=== PATIENT | female | born 1960 | race Caucasian/White ===

== ENCOUNTER → 2018-04-18 15:31 | Outpatient (CLI) | payer MEDICAID, SELFPAY ==
--- NOTE | 2018-04-18 15:38 | RAD_ITS ---
STUDY: X-RAY - LEFT TIBIA AND FIBULA REASON FOR EXAM: Female, 57 years old. Hit mid to upper anterior tibial several times. Pain. TECHNIQUE: 2 view(s) of the tibia and fibula were obtained. COMPARISON: None. FINDINGS: Normal visualized tibia. Normal visualized fibula. There is no acute fracture, dislocation or destructive osseous pathology. The knee and ankle appear grossly unremarkable. The soft tissue structures are unremarkable. RAD/Tibia & Fibula 2 Views IMPRESSION: Normal x-ray examination of the tibia and fibula. Electronically Signed: Homer Ambrose DO at 23:54 EDT Tel [phone], Service support ,
[2018-04-18 17:40] LABS: Erythrocyte Sedimentation Rate 23 mm/hr (0-30)
[2018-04-18 18:13] LABS: AST(SGOT) 14 U/L (15-37); Alanine Aminotransfer ALT/SGPT 27 U/L (13-56); Albumin, Serum 3.9 g/dL (3.2-5.0); Alkaline Phosphatase 130 U/L (45-117); Anion Gap 8 (5-15); BUN 8 mg/dL (7-18); BUN/Creat Ratio 11.1 RATIO (10-20); Calcium,Total 9.1 mg/dL (8.5-10.1); Chloride 106 mmol/L (98-107); Cholesterol 168 mg/dL (200); Creatinine, Serum 0.72 mg/dL (0.55-1.02); EST Glomerular Filtration Rate 89 mL/min (>60); Est Glom Filt Rate - Afr Amer 107 mL/min (>60); Globulin 3.9 g/dL (2.2-4.2); Glucose 86 mg/dL (74-106); High Density Lipoprotein 41 mg/dL; Potassium 3.9 mmol/L (3.5-5.1); Protein, Total 7.8 g/dL (6.4-8.2); Sodium Level 139 mmol/L (136-145); Thyroid Stim Hormone (TSH) 0.91 uIU/mL (0.358-3.74); Triglycerides 130 mg/dL; Very Low Density Lipoprotein 26 mg/dL (5-40)
== END ==
PROVIDERS: Family Provider Family Medicine; PCP Family Medicine; Referring Provider Family Medicine; Visit Provider Family Medicine
DX: M79.605 Pain in left leg (principal); M31.6 Other giant cell arteritis; I10 Essential (primary) hypertension; E78.5 Hyperlipidemia, unspecified; L68.0 Hirsutism; E66.9 Obesity, unspecified
CPT/HCPCS: 36415; 73590; 80053; 80061; 84403; 84443; 85652

== ENCOUNTER → 2018-05-24 12:05 | Outpatient (CLI) | payer MEDICAID, SELFPAY ==
--- NOTE | 2018-05-24 12:08 | MRI_ITS ---
STUDY: MRI BRAIN WITH AND WITHOUT CONTRAST REASON FOR EXAM: Female, 57 years old. Possible stroke History of cancer of the colon and vulva TECHNIQUE: Standardized multiplanar fat and water weighted pulse sequences were obtained. 10 ml of Gadavist contrast material was administered intravenously for the contrast portion of the examination. COMPARISON: None. FINDINGS: Normal size of the ventricles and extra-axial spaces for the patient's age. Multiple scattered punctate white matter lesions are seen bilaterally without mass effect or restricted diffusion. Normal bilateral basal ganglia. Normal thalami. There is no extra-axial fluid accumulation. Normal flow voids within the major intracranial circulation suggesting patency by spin echo criteria. Normal venous enhancement. There is no enhancing intra-axial or extra-axial abnormality. Normal sella turcica, pituitary gland, infundibular stalk, optic chiasm and hypothalamus. Normal tectal plate and pineal gland. Normal midbrain, alexus and medulla. Normal cerebellum. Normal basal cisterns. Normal bilateral temporal bones. Normal bilateral internal auditory canals. Postsurgical changes of the orbits. Mild mucosal thickening in the right ethmoid air cells Normal calvarium and skull base. Normal visualized soft tissue structures. Normal visualized upper cervical spine. MRI/Brain W/WO Contrast IMPRESSION: Periventricular white matter ischemic changes without evidence for acute infarct No enhancing lesions to suggest presence of metastatic disease Electronically Signed: Osmin Lindsay MD at 18:14 EST , Service support ,
== END ==
PROVIDERS: Family Provider Family Medicine; PCP Family Medicine; Referring Provider Family Medicine; Visit Provider Family Medicine
DX: R51 Headache (principal)
CPT/HCPCS: 70553; A9585

== ENCOUNTER → 2018-06-15 12:19 | Outpatient (CLI) | payer MEDICAID, SELFPAY ==
--- NOTE | 2018-06-15 12:23 | BI_ITS ---
MAMMOGRAPHY - BILATERAL SCREENING REASON FOR EXAM: Female, 57 years old. Routine annual screening examination. PERTINENT HISTORY: Non-contributory. Remote right excisional breast biopsy. TECHNIQUE: Digital bilateral breast thomas (3D mammographic acquisition) in the CC and MLO projections. 2-D mediolateral oblique (MLO) and craniocaudad (CC) views of both breasts were obtained. CAD: Full Field Digital Mammography with Computer Added Detection was performed. COMPARISON: Comparison is made with prior outside examination of April 29, 2017. FINDINGS: Breast Composition: The breasts are heterogeneously dense, which may obscure small masses. There are no dominant masses or suspicious calcifications. 3 adjacent tissue clip markers are seen in the superior slightly lateral aspect of the left breast. Stable small bilateral axillary lymph nodes. No other significant abnormalities are identified. There has been no significant change since the prior study. BI/SCREENING MAMM (CAD), BILAT IMPRESSION: Stable bilateral screening mammogram. Yearly follow-up mammogram recommended. (A) ASSESSMENT CATEGORY: BIRADS Category 2: Benign. A letter regarding these results will be sent to the patient by the facility within 30 days. Approximately 10% of breast cancers are not detected by mammography. A normal mammogram should not delay biopsy of a clinically suspicious abnormality. [id number] Electronically Signed: Klaus Bergman MD at 14:28 EST Tel [phone], Service support ,
--- OUTSIDE RECORDS SUMMARY | 2018-08-10 15:32 | XMS RPT_ITS ---
:1960 Author Organization OHIP Support Name Relationship Address Phone DALI HUYNH Unavailable [address] + [place] [address] DOMARLENJOAN JOEL Unavailable [address] + [place] [address] UE Unavailable Unavailable Unavailable DALI HUYNH Unavailable [address] + [facility] [address] DOMARLENJOAN JOEL Unavailable [address] + [place] [address] UE Unavailable Unavailable Unavailable DALI HUYNH Unavailable [address] + [facility] [address] DOMARLENJOAN JOEL Unavailable [address] + [place] [address] UE Unavailable Unavailable Unavailable HUAOJAN JOEL Unavailable [address] + [place] [address] UE Unavailable Unavailable Unavailable DOBBJOAN, JOEL Unavailable [address] + [place] [address] UE Unavailable Unavailable Unavailable DOMARLENJOAN, JOEL Unavailable [address] + [place] [address] UE Unavailable Unavailable Unavailable DOBBJOAN, JOEL Unavailable [address] + [place] [address] UE Unavailable Unavailable Unavailable DOMARLENINS, JOEL Unavailable [address] + [place] [address] UE Unavailable Unavailable Unavailable DOBBINS, JOEL Unavailable [address] + [place] [address] UE Unavailable Unavailable Unavailable HUAINS, JOEL Unavailable [address] + [place] [address] UE Unavailable Unavailable Unavailable DOBBINS, JOEL Unavailable [address] + [place] [address] UE Unavailable Unavailable Unavailable DOBBINS, JOEL Unavailable [address] + [place] [address] UE Unavailable Unavailable Unavailable DOBBINS, JOEL Unavailable [address] + [place] [address] UE Unavailable Unavailable Unavailable DOBBINS, JOEL Unavailable [address] + [place] [address] UE Unavailable Unavailable Unavailable DOBBINS, JOEL Unavailable [address] + [place] [address] UE Unavailable Unavailable Unavailable DOBBINS, JOEL Unavailable [address] + [place] [address] UE Unavailable Unavailable Unavailable DOBBINS, JOEL Unavailable [address] + [place] [address] UE Unavailable Unavailable Unavailable DOBBINS, JOEL Unavailable [address] + [place] [address] UE Unavailable Unavailable Unavailable DOBBINS, JOEL Unavailable [address] + [place] [address] UE Unavailable Unavailable Unavailable DOBBINS, JOEL Unavailable [address] + [place] [address] UE Unavailable Unavailable Unavailable DOBBINS, JOEL Unavailable [address] + [place] [address] UE Unavailable Unavailable Unavailable DOBBINS, JOEL Unavailable [address] + [place] [address] UE Unavailable Unavailable Unavailable DOBBINS, JOEL Unavailable [address] + [place] [address] UE Unavailable Unavailable Unavailable DOBBINS, JOEL Unavailable [address] + [place] [address] UE Unavailable Unavailable Unavailable Care Team Providers Name Role Phone DAYAMI DUGGAN Attending Unavailable DAYAMI DUGGAN Referring Unavailable DAYAMI DUGGAN Referring Unavailable BERNARD GUTHRIE Attending Unavailable DAYAMI DUGGAN Referring Unavailable ELDERBROCK, DAYAMI Young Attending Unavailable ELDERBROCK, DAYAMI Young Referring Unavailable OLBRYCH, LOU Attending Unavailable OLBRYCH, LOU Referring Unavailable OLBRYCH, LOU Referring Unavailable AMALFITANO, CHRISTINA L Attending Unavailable ELDERBROCK, DAYAMI D Referring Unavailable ELDERBROCK, DAYAMI D Attending Unavailable ELDERBROCK, DAYAMI D Referring Unavailable VIGNESH, IVET (HOMER) Referring Unavailable OLBRYCH, LOU Attending Unavailable VIGNESHIVET (PA) Referring Unavailable SCARCELLA, BERNARD B Referring Unavailable AMALFITANO, CHRISTINA L Referring Unavailable AMALFITANO, CHRISTINA L Referring Unavailable AMALFITANO, CHRISTINA L Referring Unavailable Dossie, Sultana Sanchez Attending Unavailable Elderbrock, Dayami Referring Unavailable Elderbrock, Dayami Primary Care Unavailable Dossie, Sultana Sanchez Attending Unavailable Elderbrock, Dayami Referring Unavailable Elderbrock, Dayami Primary Care Unavailable Dossie, Sultana Sanchez Attending Unavailable Elderbrock, Dayami Referring Unavailable Elderbrock, Dayami Primary Care Unavailable Dossie, Sultana Sanchez Attending Unavailable Elderbrock, Dayami Referring Unavailable Elderbrock, Dayami Primary Care Unavailable Dossie, Sultana Sanchez Attending Unavailable Elderbrock, Dayami Referring Unavailable Dossie, Sultana Sanchez Attending Unavailable Elderbrock, Dayami Referring Unavailable Elderbrock, Dayami Primary Care Unavailable Dossie, Sultana Sanchez Attending Unavailable Elderbrock, Dayami Referring Unavailable Dossie, Sultana Sanchez Attending Unavailable Elderbrock, Dayami Referring Unavailable Elderbrock, Dayami Primary Care Unavailable Dossie, Sultana Sanchez Attending Unavailable Dossie, Sultana Sanchez Attending Unavailable Elderbrock, Dayami Referring Unavailable Elderbrock, Dayami Primary Care Unavailable Dossie, Sultana Sanchez Attending Unavailable Elderbrock, Dayami Referring Unavailable Elderbrock, Dayami Primary Care Unavailable Dossie, Sultana Sanchez Attending Unavailable Dossie, Sultana Sanchez Attending Unavailable Dossie, Sultana ShafferCDiogo Attending Unavailable Brown, Kolby Attending Unavailable Elderbrock, Dayami Referring Unavailable Brown, Kolby Attending Unavailable Brown, Kolby Referring Unavailable Brown, Kolby Primary Care Unavailable Dossie, Sultana ShafferCDiogo Attending Unavailable Brown, Kolby Attending Unavailable Oleghe, Efewongbe Referring Unavailable Brown, Kolyb Attending Unavailable Brown, Kolby Referring Unavailable Brown, Kolby Primary Care Unavailable Sultana Shelley D.C. Attending Unavailable Coco Foy Attending Unavailable Brown, Kolby Attending Unavailable Brown, Kolby Referring Unavailable Brown, Kolby Primary Care Unavailable Sultana Shelley D.C. Attending Unavailable Brown, Kolby Referring Unavailable DannielleJaun tim Attending Unavailable Brown, Kolby Referring Unavailable PROBLEMS PROBLEMS DATE TYPE CONDITION / CODE ATTENDING STATUS SOURCE 06/26/2018 Unknown K62.5 - Hemorrhage Jaun Spicer Active [facility] anus and rectum / Community K62.5(ICD-10) Hospital Repository 06/26/2018 Unknown R10.13 - Epigastric Dannielle, Jaun Active [facility] pain / Community R10.13(ICD-10) Hospital Repository 06/26/2018 Unknown R13.10 - Dysphagia, [place], Jaun Active [facility] unspecified / Community R13.10(ICD-10) Hospital Repository 06/23/2018 Unknown M99.03 - Segmental Dossie, Sultana Active [facility] dysfunction of Hospital lumbar region / Repository M99.03(ICD-10) 06/23/2018 Unknown M99.05 - Segmental Dossie, Sultana Active [facility] dysfunction of Hospital pelvic region / Repository M99.05(ICD-10) 06/23/2018 Unknown M99.02 - Segmental Dossie, Sultana Active [facility] dysfunction of [facility] thoracic region / Repository M99.02(ICD-10) 06/23/2018 Unknown M99.01 - Segmental Dossie, Sultana 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 / Community M31.6(ICD-10) Hospital Repository 04/18/2018 Unknown I10 - Essential Brown, Kolby Active [facility] (primary) [facility] hypertension / Hospital I10(ICD-10) Repository 04/18/2018 Unknown E78.5 - Brown, Kolby Active [facility] Hyperlipidemia, Community unspecified / Hospital E78.5(ICD-10) Repository 04/18/2018 Unknown L68.0 - Hirsutism / Brown, Kolby Active [facility] L68.0(ICD-10) [facility] Repository 04/18/2018 Unknown E66.9 - Obesity, Brown, Kolby Active [facility] unspecified / [facility] E66.9(ICD-10) Hospital Repository 04/19/2018 Unknown M54.5 - Low back DossieSultana Active [facility] pain / M54.5(ICD-10) [facility] Repository 03/07/2018 Unknown M54.9 - Dorsalgia, DosSultana zacarias Active [facility] unspecified / [facility] Community M54.9(ICD-10) Hospital Repository 04/28/2015 Active Obstructive sleep NA Active [facility] apnea (adult) [facility] Other (pediatric) / [place] G47.33(ICD-10) Repository 02/08/2018 Active Chest pain, NA Active [facility] unspecified / Clinic Other R07.9(ICD-10) [place] Repository 02/08/2018 Active Shortness of breath NA Active [facility] / R06.02(ICD-10) Clinic Other [place] Repository 02/08/2018 Active Panlobular emphysema NA Active [facility] / J43.1(ICD-10) Clinic Other [place] Repository 11/21/2017 Active Chronic obstructive NA Active [facility] pulmonary disease, Clinic Main unspecified / [place] J44.9(ICD-10) Repository 10/19/2011 Active 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, [facility] Main lumbar region / [place] M51.36(ICD-10) Repository 10/31/2017 Active Dorsalgia, NA Active [facility] unspecified / Clinic Main M54.9(ICD-10) [place] Repository 10/31/2017 Active Other chronic pain / NA Active [facility] G89.29(ICD-10) Clinic Main [place] Repository 10/26/2017 Active Paresthesia of skin NA Active [facility] / R20.2(ICD-10) Clinic Other [place] Repository 09/12/2017 Active Pain in left hip / NA Active [place] M25.552(ICD-10) Clinic Other [place] Repository 09/15/2011 Active Hyperlipidemia, NA Active [facility] unspecified / Clinic Main E78.5(ICD-10) [place] Repository PROCEDURES PROCEDURES No Procedure Records FoundRESULTS RESULTS SURGERY VISIT REPORT Observed: 06/27/2018 Status: F Source: [place] 7:31 AM [facility] REPOSITORY [facility] 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 Is patient in pain?: No Allergies aloe vera Allergy (Verified 06/26/18 13:21) Other doxycycline Allergy (Verified 06/26/18 13:21) Other hydrocodone bitartrate [From Vicodin] Allergy (Verified 06/26/18 13:21) Upset Stomach oxycodone HCl [From Percocet] Allergy (Verified 06/26/18 13:21) Other propoxyphene HCl [From Darvon] Allergy (Verified 06/26/18 13:21) Vomiting Medications Rosuvastatin Calcium [Crestor] 10 mg PO QHS 05/20/14 [History Confirmed 06/26/18] lactobacillus combination no.8 3 billion cell capsule 3,000 mmu cells PO QDAY 11/08/17 [History Confirmed 06/26/18] aclidinium bromide 400 mcg/actuation breath activated powder inhaler 1 inh INHALATION BID 04/18/18 [History Confirmed 06/26/18] lorazepam 1 mg tablet 1 mg PO Q12H PRN #30 tab 04/18/18 [Rx Confirmed 06/26/18] turmeric root extract 500 mg capsule 500 mg PO BID 04/18/18 [History Confirmed 06/26/18] valacyclovir 500 mg tablet 500 mg PO DAILY #60 tab 04/18/18 [Rx Confirmed 06/26/18] esomeprazole magnesium 20 mg capsule,delayed release 20 mg PO BID #180 cap 04/27/18 [Rx Confirmed 06/26/18] ydheds-txinelrw-xujqkod 3,000-9,500-15,000 unit capsule,delayed releas 12.50753 cap PO TID #90 cap 05/04/18 [Rx Confirmed 06/26/18] cetirizine 10 mg capsule 10 mg PO DAILY #90 cap 06/01/18 [Rx Confirmed 06/26/18] glucosamine HCl 1,500 mg tablet 1,500 mg PO BID #180 tab 06/01/18 [Rx Confirmed 06/26/18] peg 3350-electrolytes 236 gram-22.74 gram-6.74 gram-5.86 gram solution 4,000 ml PO ONCE #4000 ml 06/27/18 [Rx Confirmed 06/27/18] Is last menstrual period known: No Post menopausal: Yes Patient : No PFSH Medical History Abnormal colonoscopy (Acute) Acute asthma (Acute) Arthritis (Acute) Carpal tunnel syndrome (Acute) Environmental allergies (Acute) GERD (gastroesophageal reflux disease) (Acute) High cholesterol (Acute) High triglycerides (Acute) History Valvular Surgery (Acute) History of cancer of vulva (Acute) Hx TIA/stroke w/o resid (Acute) Hx of colon cancer, stage I (Acute) IBS (irritable bowel syndrome) (Acute) Sleep apnea (Acute) Seasonal allergies (Chronic) Surgical History History of bladder surgery (Acute) History of breast surgery (Acute) History of cardiac cath (Acute) History of carpal tunnel release (Acute) History of cataract surgery (Acute) History of cornea transplant (Acute) History of esophagogastroduodenoscopy (EGD) (Acute) History of nasal septoplasty (Acute) History of partial hysterectomy (Acute) history of bladder sling (Acute) Family History Other Alcoholism Alzheimer disease Anxiety Arthritis Asthma Breast cancer Cervical cancer Colon cancer Depression Heart disease High cholesterol Lung cancer Suicidal behavior Social History Smoking Status: Current every day smoker tobacco type: cigarettes quit status: not considering quitting alcohol intake: never substance use type: does not use what type of physical activity do you participate in: none HPI HPI HPI: DEVON BARAHONA, is a 57 F who presents to the office today for evaluation of abdominal pain and bright red rectal bleeding. Patient states that about 2-3 weeks ago she had a several day history of bright red rectal bleeding with bowel movements. In addition she has been feeling very bloated and having epigastric abdominal pain. She has not had any vomiting. But she does have some dysphasia and having difficulty swallowing pills feeling like they are getting stuck in her upper throat and esophagus area. In 2016 I performed a colonoscopy on her for personal history of colonic polyps she was noted to have 2 polyps in her transverse colon these came back as tubular adenomas. She is currently on Nexium on a daily basis. she has had no new changes in her medications ROS General General: Yes fatigue and colon cancer; no weight change, appetite, breast cancer or weakness HEENT HEENT: Yes difficulty swallowing and eye surgery; no eye injury, swollen glands or hoarseness Endo Endocrine: No thyroid disease, diabetes mellitus, thyroid cancer, Hair loss, heat intolerance or cold intolerance Musc Musculoskeletal: Yes back problems and arthritis; no rheumatoid arthritis, gout or joint pain Cardio Cardiovascular: No murmur, pacemaker, heart disease, atrial fibrillation, high blood pressure, heart attack, heart stent, palpitations, shortness of breat with exertion or chest pain Psych Psychiatric: Yes anxiety; no depression or hearing voices Resp Respiratory: Yes shortness of breath, Yes sleep apnea, Yes cough, Yes COPD, Yes asthma, Yes emphysema, No wheezing Gastro Gastrointestinal: Yes abdominal pain, No nausea or vomiting, No diarrhea, No constipation, Yes blood in stool, Yes acid reflux, No hemorrhoids, No ulcers, No gallbladder problem, No black,tarry stools Ranjan Hematologic: No blood thinners, No blood disorders, No bleeding, No anemia, No blood clots Neuro Neurologic: No weakness Exam Const General: well developed, no acute distress, well hydrated Orientation: oriented to person, oriented to place, oriented to time [facility] Head: normocephalic, atraumatic Ears: external ears normal Mouth: moist mucous membranes Eyes Sclera: sclerae normal Pupils: normal by confrontation Neck Neck: no lymphadenopathy noted Neck mass: No Thyroid: symmetrical, thyroid normal Chest Chest palpation AND inspection: normal inspection of the chest Resp Effort AND Inspection: normal respiratory effort Auscultation: clear to auscultation bilaterally Percussion: percussion normal Cardio Rate: regular rate Rhythm: regular rhythm Heart Sounds: no murmurs GI Inspection: obesity Palpation: soft, no masses, no hepatosplenomegaly, tender in the epigastrum Rectal Exam: other Other: Rectal exam deferred. Extrem General: no clubbing, cyanosis or edema, normal to inspection Assessment AND Plan Problems 1. Rectal bleed K62.5 2. Epigastric pain R10.13 3. Esophageal dysphagia R13.10 Plan I have discussed the above with the patient. I have offered the patient colonoscopy as well as an esophagogastroduodenoscopy for evaluation. I have explained the risks/benefits of the procedure and described the procedure. I have discussed the risks with the patient, including but not limited to: infection, bleeding, perforation of the GI tract requiring emergency surgery, inability to complete the procedure, injury to any internal organs, complications of anesthesia, etc. - the patient understands and agrees to proceed. I have answered all the patient's questions to the patient's satisfaction and the patient has no further questions. The patient has been given instructions for the colon cleansing preparation. Orders Orders: Medications New: peg 3350-electrolytes 236-22.74-6.74 -5.86 gram until fe4,000 mL PO ONCE 4,000 mL 0RF mary effluent is clear; do not exceed a total volume of 4000 mL Plan Detail Goals Decrease pain Increase ROM Coding Level of Care Code Off vis,est,level 3 Diagnoses Rectal bleed K62.5 Epigastric pain R10.13 Esophageal dysphagia R13.10 Dysphagia type: esophageal phase 06/27/18 0731 <Electronically signed by Jaun Spicer MD> Date Jaun Spicer MD Cosigner Signature: Date (if applicable) CC: Kolby Alaniz DO CHIROPRACTIC REPORT Observed: 06/22/2018 Status: F Source: [place] 4:36 PM [facility] REPOSITORY [facility] [address] [place] [address] OFFICE VISIT Date of Service: 06/22/18 MR#: [id number] Acct: [id number] Name: DEVON BARAHONA Rep #: [id number] : 1960 Provider: Sultana North D.C. Age/Sex: 57/F Location: [facility] Status: Signed Intake Vital Signs06/22/18 Height 5 ft 3.5 in 06/22/18 Weight: 216 lb 06/22/18 Body Mass Index (BMI) 37.6 Intake Visit Reasons: back pain Chief Complaint: Neck and low back pain Accompanied by: Is patient in pain?: Yes Allergies aloe vera Allergy (Verified 05/04/18 13:47) Other doxycycline Allergy (Verified 05/04/18 13:47) Other hydrocodone bitartrate [From Vicodin] Allergy (Verified 05/04/18 13:47) Upset Stomach oxycodone HCl [From Percocet] Allergy (Verified 05/04/18 13:47) Other propoxyphene HCl [From Darvon] Allergy (Verified 05/04/18 13:47) Vomiting Medications Rosuvastatin Calcium [Crestor] 10 mg PO QHS 05/20/14 [History Confirmed 05/04/18] lactobacillus combination no.8 3 billion cell capsule 3,000 mmu cells PO QDAY 11/08/17 [History Confirmed 05/04/18] aclidinium bromide 400 mcg/actuation breath activated powder inhaler 1 inh INHALATION BID 04/18/18 [History Confirmed 05/04/18] lorazepam 1 mg tablet 1 mg PO Q12H PRN #30 tab 04/18/18 [Rx Confirmed 05/04/18] turmeric root extract 500 mg capsule 500 mg PO BID 04/18/18 [History Confirmed 05/04/18] valacyclovir 500 mg tablet 500 mg PO DAILY #60 tab 04/18/18 [Rx Confirmed 05/04/18] esomeprazole magnesium 20 mg capsule,delayed release 20 mg PO BID #180 cap 04/27/18 [Rx Confirmed 05/04/18] yjonrw-flxvthbo-gxcvslp 3,000-9,500-15,000 unit capsule,delayed releas 12.74404 cap PO TID #90 cap 05/04/18 [Rx Confirmed 05/04/18] cetirizine 10 mg capsule 10 mg PO DAILY #90 cap 06/01/18 [Rx] glucosamine HCl 1,500 mg tablet 1,500 mg PO BID #180 tab 06/01/18 [Rx] PFSH Medical History Abnormal colonoscopy (Acute) Acute asthma (Acute) Arthritis (Acute) Carpal tunnel syndrome (Acute) Environmental allergies (Acute) GERD (gastroesophageal reflux disease) (Acute) High cholesterol (Acute) High triglycerides (Acute) History Valvular Surgery (Acute) History of cancer of vulva (Acute) Hx TIA/stroke w/o resid (Acute) Hx of colon cancer, stage I (Acute) IBS (irritable bowel syndrome) (Acute) Sleep apnea (Acute) Seasonal allergies (Chronic) Surgical History History of bladder surgery (Acute) History of breast surgery (Acute) History of cardiac cath (Acute) History of carpal tunnel release (Acute) History of cataract surgery (Acute) History of cornea transplant (Acute) History of esophagogastroduodenoscopy (EGD) (Acute) History of nasal septoplasty (Acute) History of partial hysterectomy (Acute) history of bladder sling (Acute) Family History Other Alcoholism Alzheimer disease Anxiety Arthritis Asthma Breast cancer Cervical cancer Colon cancer Depression Heart disease High cholesterol Lung cancer Suicidal behavior Social History Smoking Status: Current every day smoker tobacco type: cigarettes quit status: not considering quitting alcohol intake: never substance use type: does not use what type of physical activity do you participate in: none HPI back pain: Chief Complaint: low back and hip pain Visit Number: 8 Details: DEVON BARAHONA is a 57 year old F who presents with increased low back and hip pain. She states that over the past week her hips feel as if they are popping in and out of place, causing pain and soreness. The patient also complains of low back tenderness, rating her pain a 4/10 overall. Bending, lifting, twisting and prolonged walking cause increased pain, although she denies any numbness, tingling, or radiculopathy. Location: low back and hip pain Duration: constant Aggravating or associated factors: bending, lifting, and twisting Relieving factors: chiro Pain Quality: aching, dull, cramping, sharp Exam Musc General: Yes normal posture, normal gait, joint tenderness (C6,T5, L2, L3, L5, L>R SI jt.) and decreased ROM Cervical Spine: loss of normal cervical lordosis, cervical muscular tenderness, pain with cervical ROM, cervical spasm, cervical ROM abnormal Thoracic/Lumbar Spine: thoracic and lumbar spine normal to inspection (L post rotation of pelvis), Lasegue's sign positive, pain with thoraco-lumbar ROM, paraspinal tenderness bilaterally in the lower lumbar, in the mid lumbar and in the upper thoracic, thoraco-lumbar ROM limited, thoraco-lumbar spasm bilaterally in the upper thoracic Sacroiliac joints: on the left Sacrum: tenderness Office Procedures Chiropractic Treatments Procedures Manipulation: 3-4 regions (C3,C6,T5, L3,LIL) Assessment AND Plan 1. Segmental and somatic dysfunction of lumbar region M99.03 Orders Orders: 2. Segmental and somatic dysfunction of thoracic region M99.02 Orders Orders: 3. Segmental and somatic dysfunction of pelvic region M99.05 Orders Orders: 4. Segmental and somatic dysfunction of cervical region M99.01 Orders Orders: Plan Detail Additional Comments Continue care. Goals Decrease pain Increase ROM Follow Up 2 Weeks Coding Level of Care Code No Charge Diagnoses Segmental and somatic dysfunction of lumbar region M99.03 Segmental and somatic dysfunction of thoracic region M99.02 Segmental and somatic dysfunction of pelvic region M99.05 Segmental and somatic dysfunction of cervical region M99.01 Additional Codes Procedures - Manipulation: 3-4 regions (05560) 06/22/18 4601 <Electronically signed by Sultana North D.C.> Date Sultana Magana Signature: Date (if applicable) CC: SCREENING MAMM (CAD), Observed: 06/15/2018 Status: F Source: [place] 12:23 PM [facility] REPOSITORY [facility] [address] [place] [address] SCREENING MAMM (CAD), BILAT MR#: [id number] Acct: [id number] Name: DEVON BARAHONA Rep #: [id number] : 1960 F 57 From: Klaus Bergman MD PCP: Kolby Alaniz DO Status: REG CLI Study: SCREENING MAMM (CAD), BILAT Date of Exam: 06/15/18 Exam# [id number] Ordering Dr: Kolby Alaniz DO MAMMOGRAPHY - BILATERAL SCREENING REASON FOR EXAM: Female, 57 years old. Routine annual screening examination. PERTINENT HISTORY: Non-contributory. Remote right excisional breast biopsy. TECHNIQUE: Digital bilateral breast thomas (3D mammographic acquisition) in the CC and MLO projections. 2-D mediolateral oblique (MLO) and craniocaudad (CC) views of both breasts were obtained. CAD: Full Field Digital Mammography with Computer Added Detection was performed. COMPARISON: Comparison is made with prior outside examination of April 28, 2018. FINDINGS: Breast Composition: The breasts are heterogeneously dense, which may obscure small masses. There are no dominant masses or suspicious calcifications. 3 adjacent tissue clip markers are seen in the superior slightly lateral aspect of the left breast. Stable small bilateral axillary lymph nodes. No other significant abnormalities are identified. There has been no significant change since the prior study. BI/SCREENING MAMM (CAD), BILAT IMPRESSION: Stable bilateral screening mammogram. Yearly follow-up mammogram recommended. (A) ASSESSMENT CATEGORY: BIRADS Category 2: Benign. A letter regarding these results will be sent to the patient by the facility within 30 days. Approximately 10% of breast cancers are not detected by mammography. A normal mammogram should not delay biopsy of a clinically suspicious abnormality. [id number] Electronically Signed: Klaus Bergman MD at 14:28 EST Tel [phone], Service support , CC: Kolby Alaniz DO Knockout Machine Operator: Signed BRYCE Observed: 06/14/2018 Status: COMPLETED Source: [place] 12:00 AM [facility] REPOSITORY Telephone (SRIRAMMWS) DEVON BARAHONA ([id number]) 1960 F Date Time Provider Department 06/14/18 LOU MENDOZA During your visit today, we recorded the following information about you: Luly Chani 06/14/2018 9:32 AM Signed Devon Barahona is calling Lou Mendoza MD today requesting the orders for C-Pap supplies are faxed to [place], [place] - Please fax order to [phone] These orders were orignally faxed to [facility] and patient was told by [facility] yesterday she is not in their area and unable to fill the request. She was directed to [facility] in [place]. The [place] location advised patient it would take up to two weeks to start the process on getting her supplies. [facility] [place] the [place] and fill order once they are received. Please call patient when completed. Patient has been without her Cpap Otilia Branch LPN 06/14/2018 1:44 PM Signed Faxed to [facility] Patient notified. Otilia Flemingtima RIOS Lois Worthington Noah Psr 06/19/2018 1:47 PM Signed Patient called today stating Latonya needed her most recent PSG. This PSS faxed over the report to [phone] from her 04/21/15 study which patient confirmed was the most up to date. Allergies As of Date: 06/14/2018 Noted Allergy Reaction ALOE VERA 03/26/2010 2 - Rash Comments: Causes bustillos/redness/blistering when applied topically. DARVON (PROPOXYPHENE HCL) 03/17/2010 8 - GI Upset 11 - Vomiting VICODIN (HYDROCODONE-ACETAMINOPHE*03/17/2010 8 - GI Upset 11 - Vomiting DOXYCYCLINE 09/08/2012 14 - Other: See Comments Comments: Vaginal yeast infection. PERCOCET (OXYCODONE-ACETAMINOPHEN)03/17/2010 1 - Mental Status Change Comments: Visual hallucinations PENICILLIN 06/01/2018 14 - Other: See Comments Comments: Yeast vaginitis. Date Reviewed: 06/01/2018 Reviewed by: Lou Mendoza - Fully Assessed Reason for Visit: fax order request [Other] Prescriptions as of 06/14/2018 Sig: TIOTROPIUM BROMIDE 1.25 MCG/A* Inhale 2 Puffs as instructed * IGIRJS-RJTCHDNY-BRGNDIU 3,000* Take 1 capsule by mouth three* CETIRIZINE 10 MG TABLET Take 1 tablet by mouth once d* SALMETEROL 50 MCG/DOSE BLISTE* Inhale 1 Puff as instructed t* COMPOUNDED PRESCRIPTION Respironics Opti-Life nasal p* COMPOUNDED PRESCRIPTION SoClean PAP cleaning unit. LORAZEPAM 1 MG TABLET Take 1 tablet by mouth every * ROSUVASTATIN 10 MG TABLET Take 1 tablet by mouth daily * COMPOUNDED PRESCRIPTION Assess CPAP unit settings, ma* COMPOUNDED PRESCRIPTION Water pill with potassium, ta* LACTOBACILLUS COMBINATION NO.* Take 1 capsule by mouth once * TURMERIC ROOT EXTRACT 500 MG * Take 1 capsule by mouth once * CHOLECALCIFEROL (VITAMIN D3) * Take 1 capsule by mouth once * CPAP daily at bedtime. Problem List As Of Date 06/14/2018 Noted Resolved Arthritis [M19.90] INVALID FOR* Back pain [M54.9] INVALID FOR*03/23/2016 More... Bladder instability [N32.89] INVALID FOR*03/20/2014 Asthma [J45.909] INVALID FOR*06/06/2012 Acute gastritis without mention of hemorrhage [*INVALID FOR*05/04/2012 ALIYA (obstructive sleep apnea) [G47.33] INVALID FOR* More... COPD (chronic obstructive pulmonary disease) [J*INVALID FOR* Other and unspecified hyperlipidemia [E78.5] INVALID FOR* Lumbar strain [S39.012A] INVALID FOR*05/04/2012 Lumbar spondylosis [M47.816] INVALID FOR*05/04/2012 Lumbar radiculopathy [M54.16] INVALID FOR*05/04/2012 Lumbar disc displacement without myelopathy [M5*INVALID FOR*05/04/2012 Low back pain [M54.5] INVALID FOR*03/23/2016 DDD (degenerative disc disease), lumbar [M51.36]INVALID FOR* Globus syndrome [F45.8] INVALID FOR*03/20/2014 Rhinitis [J31.0] INVALID FOR*05/04/2012 Laryngitis [J04.0] INVALID FOR*05/04/2012 Anxiety [F41.9] INVALID FOR* Scars [L90.5] INVALID FOR*05/04/2012 Hirsutism [L68.0] INVALID FOR*05/04/2012 Pulmonary emphysema (HCC) [J43.9] INVALID FOR* Back pain, chronic [M54.9, G89.29] INVALID FOR* Scalp lesion [L98.9] INVALID FOR*03/20/2014 Vulvar itching [L29.2] INVALID FOR*03/20/2014 Lens replaced by other means [Z96.1] INVALID FOR*03/23/2016 Insomnia [G47.00] INVALID FOR* Irritable bowel [K58.9] INVALID FOR* Mucopurulent chronic bronchitis (HCC) [J41.1] INVALID FOR* Gastroesophageal reflux disease without esophag*INVALID FOR* Cornea replaced by transplant [Z94.7] INVALID FOR*03/23/2016 Chronic pain of right knee [M25.561, G89.29] INVALID FOR* After-cataract obscuring vision, left [H26.492] INVALID FOR* Pseudophakia of both eyes [Z96.1] INVALID FOR* History of Descemet membrane endothelial kerato*INVALID FOR* More... Encounter Status:Closed by OTILIA BRANCH LPN on 06/14/18 MIGDALIA Observed: 06/01/2018 Status: COMPLETED Source: [place] 1:00 PM [facility] REPOSITORY Office Visit (PULMWS) DEVON BARAHONA ([id number]) 1960 F Date Time Provider Department 06/01/18 1:00 PM LOU MENDOZA During your visit today, we recorded the following information about you: Pulse Respiration Blood pressure Weight 90/minute 16/minute 102/62 99.3 kg Otilia Branch LPN 06/01/2018 12:52 PM Attested Attestation signed by Lou Mendoza at 06/01/2018 1:00 PM Reviewed with patient, confirmed as documented by Otilia Branch LPN. TO ROS: General: Generally feels short of breath with exertion/rushing. Appetite good. Eyes, Ears, nose, throat: notes post nasal drip. notes rhinorrhea. denies purulent nasal discharge. denies epistaxis. notes hoarseness. Vision stable. Cardiac: denies angina, denies edema, denies orthopnea. GI: notes heartburn. notes dysphagia. denies diarrhea. Uro/MACHINERY DISMANTLER: denies dysuria. denies hesitancy. denies nocturia. Menses: Post menopausal Musculoskeletal: denies pain. Neuro: notes headache- temporal, denies focal weakness. denies tremor. Skin: denies rash. Otherwise negative. Lou Mendoza MD 06/02/2018 1:31 PM Signed [facility] [place], 06/01/2018: ? INTERVAL HISTORY: Ms. Barahona is here for follow up of COPD and obstructive sleep apnea. Since the 11/2017 visit, the patient has not sought MD, ED or hospital care for exacerbation. Consistent with BID Tudorza. Daily cough; clear sputum attributes to Alot of sinus drainage, coughs in paroxysms to the point of gagging/choking. No purulent secretions. No hemoptysis, wheezing, chest tightness. Exertional dyspnea, stable; color television console monitor, including making bed, vacuuming, bending over all associated with shortness of breath, but still able to complete these activities. Not short of breath at rest. Still consistently compliant with CPAP. ? PMH changes:?Updated with patient today. No change. FAMH changes: Updated with patient today. No change. SOCH changes:?Still smoking 15 cigarettes daily through a filter. ? ROS: Reviewed with patient, confirmed as documented by Otilia Branch LPN. TO ? ? Immunization History Administered Date(s) Administered DTP 04/21/2014 Influenza Seasonal Inj Age 3+ 03/24/2017 Influenza Vaccine, Split-Non Spec 05/26/2011 Pneumococcal-13 Vac Conjugate 09/26/2014 Pneumovax 08/13/2010 Allergies were reviewed and updated, and medications were reconciled with the patient. ? PHYSICAL EXAMINATION: BP 102/62 Pulse 90 Resp 16 Wt 219 lb (99.3kg) SpO2 91% Gen: No acute distress. Cooperative with examination. Obese. ENT: Sclerae clear. EOMI. Nares clear. Oral hygeine good. Good dentition. Pharynx clear. No halitosis. Resp: No stridor, accessory respiratory muscle use, supra- sternal or intercostal retractions. A-P diameter normal. No wheezes crackles, rubs. CV: Regular rythm. Heart tones normal. No carotid bruit. Radial pulses normal. Abd: No distended. MSK: No kyphoscoliosis. No joint deformities. Ext: Warm and well perfused. No clubbing. No cyanosis. No edema. Skin: Color normal. Texture normal. No rash, eczema, urticaria, ecchymoses. Neuro: Mental status normal. Affect normal. Muscle tone normal. No tremor. ?? DATA REVIEW: PFT?11/21/17?04/22/16?03/13/15?- ? FVC?3.31L, 102%?3.30L, 100%?3.55L, 107%? FEV1?1.93L, 77%?2.19L, 85%?2.09L, 81%? FEV1%?0.58? 0.66?0.59?- ? IMPRESSION/RECOMMEND: 1. COPD with chronic bronchitis; moderate with decrease in FEV1 today. Reviewed with patient today. States she was previously on Advair and Symbicort without any improvement in symptoms. Does not want to start a new medication at this time. Wants to stop quitting. - Substitute Anoro 1 inhalation once daily for Tudorza. - If Anoro not covered, continue Tudorza twice daily. - Anoro and Tudorza NOT on Formulary. - Spiriva Respimat 2 inhalations once daily e-scripted to Pharmacy 06/02/2018. - Add Serevent 1 inhalation twice daily. - Follow up in 4-6 weeks with re-assessment of symptoms and lung function. ? 2. Tobacco use disorder, continuous. - Smoking cessation is critical to preserve lung function. - Continue efforts to reduce use. ? 3. ALIYA. - Continue CPAP nightly and with any sleep. - Rx for replacement CPAP mask and supplies, SoClean. - Respironics Opti-Life nasal pillows/cradle cushion system. 4. Post nasal drip. - Continue Zyrtec. - Add over the counter Nasacort, Nasonex, or Flonase per package directions. Nasal topical steroid. ? I addressed the questions of the patient, and she expressed understanding and acceptance of my answers ? Lou Mendoza MD, [facility] [address] [address] Lou Mendoza MD 06/02/2018 1:30 PM Addendum MPRESSION/RECOMMEND: 1. COPD with chronic bronchitis; moderate with decrease in FEV1 today. - Substitute Anoro 1 inhalation once daily for Tudorza. - If Anoro not covered, continue Tudorza twice daily. - Anoro and Tudorza NOT on Formulary. - Spiriva Respimat 2 inhalations once daily e-scripted to Pharmacy 06/02/2018. - Add Serevent 1 inhalation twice daily. - Follow up in 4-6 weeks with re-assessment of symptoms and lung function. ? 2. Tobacco use disorder, continuous. - Smoking cessation is critical to preserve lung function. - Continue efforts to reduce use. ? 3. ALIYA. - Continue CPAP nightly and with any sleep. - Rx for replacement CPAP mask and supplies, SoClean. - Respironics Opti-Life nasal pillows/cradle cushion system. Lou Mendoza MD, [facility] [address] [place] [id number] P: [phone] F: [phone] [email or web address] ? Referring Provider: IVET MEDELLIN [[id number]] Allergies As of Date: 06/01/2018 Noted Allergy Reaction ALOE VERA 03/26/2010 2 - Rash Comments: Causes bustillos/redness/blistering when applied topically. DARVON (PROPOXYPHENE HCL) 03/17/2010 8 - GI Upset 11 - Vomiting VICODIN (HYDROCODONE-ACETAMINOPHE*03/17/2010 8 - GI Upset 11 - Vomiting DOXYCYCLINE 09/08/2012 14 - Other: See Comments Comments: Vaginal yeast infection. PERCOCET (OXYCODONE-ACETAMINOPHEN)03/17/2010 1 - Mental Status Change Comments: Visual hallucinations PENICILLIN 06/01/2018 14 - Other: See Comments Comments: Yeast vaginitis. Date Reviewed: 06/01/2018 Reviewed by: Lou Mendoza - Fully Assessed Reason for Visit: Recheck [92] Cmt: COPD, ALIYA. Primary Visit Diagnosis:Mucopurulent chronic bronchitis (HCC) [J41.1] Other Visit Diagnoses:Centrilobular emphysema (HCC) [J43.2] ALIYA (obstructive sleep apnea) [G47.33] Post-nasal drip [R09.82] Order(s):plzumf-bcxqprqv-gplovwd (CREON 3) 3,000-9,500- 15,000 unitTake 1 capsule by mouth three times daily with meals.Disp: Rfl: cetirizine (ZYRTEC) 10 mg tabletTake 1 tablet by mouth once daily.Disp: Rfl: salmeterol (SEREVENT DISKUS) 50 mcg/dose diskus inhalerInhale 1 Puff as instructed twice daily. USE ONE(1) INHALATION TWICE DAILY.Disp: 1 InhalerRfl: 3 COMPOUNDED PRESCRIPTIONRespironics Opti-Life nasal pillows/cradle cushion system, tubing and supplies. Replace every 6 months.Disp: 1 EachRfl: 1 COMPOUNDED PRESCRIPTIONSoClean PAP cleaning unit.Disp: 1 EachRfl: 0 SPIROMETRY BASELINE ONLY [[id number]] Order #: [id number] FUTURE tiotropium bromide (SPIRIVA RESPIMAT) 1.25 mcg/actuation mistInhale 2 Puffs as instructed once daily.Disp: 1 InhalerRfl: 5 Prescriptions as of 06/01/2018 Sig: LORAZEPAM 1 MG TABLET Take 1 tablet by mouth every * ROSUVASTATIN 10 MG TABLET Take 1 tablet by mouth daily * COMPOUNDED PRESCRIPTION Assess CPAP unit settings, ma* COMPOUNDED PRESCRIPTION Water pill with potassium, ta* LACTOBACILLUS COMBINATION NO.* Take 1 capsule by mouth once * TURMERIC ROOT EXTRACT 500 MG * Take 1 capsule by mouth once * CHOLECALCIFEROL (VITAMIN D3) * Take 1 capsule by mouth once * CPAP daily at bedtime. TIOTROPIUM BROMIDE 1.25 MCG/A* Inhale 2 Puffs as instructed * HUQJDB-XGQDZHNY-SIVQNPK 3,000* Take 1 capsule by mouth three* CETIRIZINE 10 MG TABLET Take 1 tablet by mouth once d* SALMETEROL 50 MCG/DOSE BLISTE* Inhale 1 Puff as instructed t* COMPOUNDED PRESCRIPTION Respironics Opti-Life nasal p* COMPOUNDED PRESCRIPTION SoClean PAP cleaning unit. Problem List As Of Date 06/01/2018 Noted Resolved Arthritis [M19.90] INVALID FOR* Back pain [M54.9] INVALID FOR*03/23/2016 More... Bladder instability [N32.89] INVALID FOR*03/20/2014 Asthma [J45.909] INVALID FOR*06/06/2012 Acute gastritis without mention of hemorrhage [*INVALID FOR*05/04/2012 ALIYA (obstructive sleep apnea) [G47.33] INVALID FOR* More... COPD (chronic obstructive pulmonary disease) [J*INVALID FOR* Other and unspecified hyperlipidemia [E78.5] INVALID FOR* Lumbar strain [S39.012A] INVALID FOR*05/04/2012 Lumbar spondylosis [M47.816] INVALID FOR*05/04/2012 Lumbar radiculopathy [M54.16] INVALID FOR*05/04/2012 Lumbar disc displacement without myelopathy [M5*INVALID FOR*05/04/2012 Low back pain [M54.5] INVALID FOR*03/23/2016 DDD (degenerative disc disease), lumbar [M51.36]INVALID FOR* Globus syndrome [F45.8] INVALID FOR*03/20/2014 Rhinitis [J31.0] INVALID FOR*05/04/2012 Laryngitis [J04.0] INVALID FOR*05/04/2012 Anxiety [F41.9] INVALID FOR* Scars [L90.5] INVALID FOR*05/04/2012 Hirsutism [L68.0] INVALID FOR*05/04/2012 Pulmonary emphysema (HCC) [J43.9] INVALID FOR* Back pain, chronic [M54.9, G89.29] INVALID FOR* Scalp lesion [L98.9] INVALID FOR*03/20/2014 Vulvar itching [L29.2] INVALID FOR*03/20/2014 Lens replaced by other means [Z96.1] INVALID FOR*03/23/2016 Insomnia [G47.00] INVALID FOR* Irritable bowel [K58.9] INVALID FOR* Mucopurulent chronic bronchitis (HCC) [J41.1] INVALID FOR* Gastroesophageal reflux disease without esophag*INVALID FOR* Cornea replaced by transplant [Z94.7] INVALID FOR*03/23/2016 Chronic pain of right knee [M25.561, G89.29] INVALID FOR* After-cataract obscuring vision, left [H26.492] INVALID FOR* Pseudophakia of both eyes [Z96.1] INVALID FOR* History of Descemet membrane endothelial kerato*INVALID FOR* More... Notes for Staff Discussed this visit Other instructions from your clinician: MPRESSION/RECOMMEND: 1. COPD with chronic bronchitis; moderate with decrease in FEV1 today. - Substitute Anoro 1 inhalation once daily for Tudorza. - If Anoro not covered, continue Tudorza twice daily. - Anoro and Tudorza NOT on Formulary. - Spiriva Respimat 2 inhalations once daily e-scripted to Pharmacy 06/02/2018. - Add Serevent 1 inhalation twice daily. - Follow up in 4-6 weeks with re-assessment of symptoms and lung function. ? 2. Tobacco use disorder, continuous. - Smoking cessation is critical to preserve lung function. - Continue efforts to reduce use. ? 3. ALIYA. - Continue CPAP nightly and with any sleep. - Rx for replacement CPAP mask and supplies, SoClean. - Respironics Opti-Life nasal pillows/cradle cushion system. Lou Mendoza MD, [facility] [place] [facility] [address] [address] P: [phone] F: [phone] [email or web address] ? Visit Notes: >> Otilia Branch NET PROGRAMMER Shantelle Jun 01, 2018 12:39 PM Status: Attested ROS: General: Generally feels short of breath with exertion/rushing. Appetite good. Eyes, Ears, nose, throat: notes post nasal drip. notes rhinorrhea. denies purulent nasal discharge. denies epistaxis. notes hoarseness. Vision stable. Cardiac: denies angina, denies edema, denies orthopnea. GI: notes heartburn. notes dysphagia. denies diarrhea. Uro/MACHINERY DISMANTLER: denies dysuria. denies hesitancy. denies nocturia. Menses: Post menopausal Musculoskeletal: denies pain. Neuro: notes headache- temporal, denies focal weakness. denies tremor. Skin: denies rash. Otherwise negative. Prescriptions ordered this encounter Disp Refills Start End SFCAJL-SQIPPHAT-IUFXCZT 3,000-9,500-* 06/01/2018 Class: Med Update Route: ORAL Sig: Take 1 capsule by mouth three times daily with meals. CETIRIZINE 10 MG TABLET 06/01/2018 Class: Med Update Route: ORAL Sig: Take 1 tablet by mouth once daily. UMECLIDINIUM 62.5 MCG-VILANTEROL 25 * 1 In* 3 06/01/2018 06/02/2018 Class: Print RX Route: INHALATION Sig: Inhale 1 Inhalation as instructed once daily. Disc: Not on Formulary SALMETEROL 50 MCG/DOSE BLISTER POWDE* 1 In* 3 06/01/2018 Class: Print RX Route: INHALATION Sig: Inhale 1 Puff as instructed twice daily. USE ONE(1) INHALATION TWICE DAILY. COMPOUNDED PRESCRIPTION 1 Ea* 1 06/01/2018 Class: Print RX Sig: Respironics Opti-Life nasal pillows/cradle cushion system, tubing and supplies. Replace every 6 months. COMPOUNDED PRESCRIPTION 1 Ea* 0 06/01/2018 Class: Print RX Sig: SoClean PAP cleaning unit. ACLIDINIUM BROMIDE 400 MCG/ACTUATION* 1 Ea* 11 06/01/2018 06/02/2018 Class: Print RX Route: INHALATION Sig: Inhale 1 Puff as instructed twice daily. Disc: Not on Formulary TIOTROPIUM BROMIDE 1.25 MCG/ACTUATIO* 1 In* 5 06/02/2018 Route: INHALATION Sig: Inhale 2 Puffs as instructed once daily. Medications Discontinued During This Encounter zolpidem (AMBIEN) 10 mg tab 90 t* 0 02/01/2018 06/01/2018 Class: Print RX Route: ORAL Sig: Take 1 tablet by mouth at bedtime as needed (insomnia) for up to 90 days. Hold to fill on 10/23/16 or after Disc: Course of therapy completed ZOVIRAX 5 % crea 5 g 5 04/26/2017 06/01/2018 Sig: APPLY TO THE AFFECTED AREA(S) FIVE TIMES DAILY. use for FOUR days with viral sores Disc: Course of therapy completed aclidinium bromide (TUDORZA PRESSAIR* 3 Ea* 3 04/22/2016 06/01/2018 Class: Print RX Route: INHALATION Sig: Inhale 1 Inhalation as instructed twice daily. Disc: Reason for discontinue is not on file. umeclidinium-vilanterol (ANORO ELLIP* 1 In* 3 06/01/2018 06/02/2018 Class: Print RX Route: INHALATION Sig: Inhale 1 Inhalation as instructed once daily. Disc: Not on Formulary aclidinium bromide (TUDORZA PRESSAIR* 1 Ea* 11 06/01/2018 06/02/2018 Class: Print RX Route: INHALATION Sig: Inhale 1 Puff as instructed twice daily. Disc: Not on Formulary Follow Up: Discussed this visit Disposition: Return in about 6 weeks (around 07/13/2018). Follow-up and Disposition History Recorded Encounter Status:Closed by LOU MENDOZA MD on 06/02/18 PROGRESS Observed: 06/01/2018 Status: COMPLETED Source: [place] 12:43 PM [facility] REPOSITORY HNO ID: [id number] Author: Lou Mendoza Service: (none) Author Type: Physician Type: Progress Notes Filed: 06/02/2018 1:31 PM Note Text: [facility] [place], 06/01/2018: ? INTERVAL HISTORY: Ms. Barahona is here for follow up of COPD and obstructive sleep apnea. Since the 11/2017 visit, the patient has not sought MD, ED or hospital care for exacerbation. Consistent with BID Tudorza. Daily cough; clear sputum attributes to Alot of sinus drainage, coughs in paroxysms to the point of gagging/choking. No purulent secretions. No hemoptysis, wheezing, chest tightness. Exertional dyspnea, stable; color television console monitor, including making bed, vacuuming, bending over all associated with shortness of breath, but still able to complete these activities. Not short of breath at rest. Still consistently compliant with CPAP. ? PMH changes:?Updated with patient today. No change. FAMH changes: Updated with patient today. No change. SOCH changes:?Still smoking 15 cigarettes daily through a filter. ? ROS: Reviewed with patient, confirmed as documented by Otilia Branch LPN. TO ? ? Immunization History Administered Date(s) Administered DTP 04/21/2014 Influenza Seasonal Inj Age 3+ 03/24/2017 Influenza Vaccine, Split-Non Spec 05/26/2011 Pneumococcal-13 Vac Conjugate 09/26/2014 Pneumovax 08/13/2010 Allergies were reviewed and updated, and medications were reconciled with the patient. ? PHYSICAL EXAMINATION: BP 102/62 Pulse 90 Resp 16 Wt 219 lb (99.3kg) SpO2 91% Gen: No acute distress. Cooperative with examination. Obese. ENT: Sclerae clear. EOMI. Nares clear. Oral hygeine good. Good dentition. Pharynx clear. No halitosis. Resp: No stridor, accessory respiratory muscle use, supra- sternal or intercostal retractions. A-P diameter normal. No wheezes crackles, rubs. CV: Regular rythm. Heart tones normal. No carotid bruit. Radial pulses normal. Abd: No distended. MSK: No kyphoscoliosis. No joint deformities. Ext: Warm and well perfused. No clubbing. No cyanosis. No edema. Skin: Color normal. Texture normal. No rash, eczema, urticaria, ecchymoses. Neuro: Mental status normal. Affect normal. Muscle tone normal. No tremor. ?? DATA REVIEW: PFT?11/21/17?04/22/16?03/13/15? FVC?3.31L, 102%?3.30L, 100%?3.55L, 107%? FEV1?1.93L, 77%?2.19L, 85%?2.09L, 81%? FEV1%?0.58? 0.66?0.59? IMPRESSION/RECOMMEND: 1. COPD with chronic bronchitis; moderate with decrease in FEV1 today. Reviewed with patient today. States she was previously on Advair and Symbicort without any improvement in symptoms. Does not want to start a new medication at this time. Wants to stop quitting. - Substitute Anoro 1 inhalation once daily for Tudorza. - If Anoro not covered, continue Tudorza twice daily. - Anoro and Tudorza NOT on Formulary. - Spiriva Respimat 2 inhalations once daily e-scripted to Pharmacy 06/02/2018. - Add Serevent 1 inhalation twice daily. - Follow up in 4-6 weeks with re-assessment of symptoms and lung function. ? 2. Tobacco use disorder, continuous. - Smoking cessation is critical to preserve lung function. - Continue efforts to reduce use. ? 3. ALIYA. - Continue CPAP nightly and with any sleep. - Rx for replacement CPAP mask and supplies, SoClean. - Respironics Opti-Life nasal pillows/cradle cushion system. 4. Post nasal drip. - Continue Zyrtec. - Add over the counter Nasacort, Nasonex, or Flonase per package directions. Nasal topical steroid. ? I addressed the questions of the patient, and she expressed understanding and acceptance of my answers ? Lou Mendoza MD, [facility] [place] [facility] [place] [address] [place] [address] BRAIN W/WO CONTRAST Observed: 05/24/2018 Status: F Source: [place] 12:08 PM [facility] REPOSITORY [facility] Imaging Services [address] [place] [address] Brain W/WO Contrast MR#: [id number] Acct: [id number] Name: DEVON BARAHONA Rep #: [id number] : 1960 F 57 From: Osmin Lindsay MD PCP: Kolby Alaniz DO Status: REG CLI Study: Brain W/WO Contrast Date of Exam: 05/24/18 Exam# [id number] Ordering Dr: Kolby Alaniz DO STUDY: MRI BRAIN WITH AND WITHOUT CONTRAST REASON FOR EXAM: Female, 57 years old. Possible stroke History of cancer of the colon and vulva TECHNIQUE: Standardized multiplanar fat and water weighted pulse sequences were obtained. 10 ml of Gadavist contrast material was administered intravenously for the contrast portion of the examination. COMPARISON: None. FINDINGS: Normal size of the ventricles and extra-axial spaces for the patient's age. Multiple scattered punctate white matter lesions are seen bilaterally without mass effect or restricted diffusion. Normal bilateral basal ganglia. Normal thalami. There is no extra-axial fluid accumulation. Normal flow voids within the major intracranial circulation suggesting patency by spin echo criteria. Normal venous enhancement. There is no enhancing intra-axial or extra-axial abnormality. Normal sella turcica, pituitary gland, infundibular stalk, optic chiasm and hypothalamus. Normal tectal plate and pineal gland. Normal midbrain, alexus and medulla. Normal cerebellum. Normal basal cisterns. Normal bilateral temporal bones. Normal bilateral internal auditory canals. Postsurgical changes of the orbits. Mild mucosal thickening in the right ethmoid air cells Normal calvarium and skull base. Normal visualized soft tissue structures. Normal visualized upper cervical spine. MRI/Brain W/WO Contrast IMPRESSION: Periventricular white matter ischemic changes without evidence for acute infarct No enhancing lesions to suggest presence of metastatic disease Electronically Signed: Osmin Lindsay MD at 18:14 EST , Service support , CC: Kolby Alaniz DO Knockout Machine Operator: Signed CHIROPRACTIC REPORT Observed: 05/22/2018 Status: F Source: [place] 2:16 PM [facility] REPOSITORY [facility] [address] [place] [address] OFFICE VISIT Date of Service: 05/22/18 MR#: [id number] Acct: [id number] Name: DEVON BARAHONA Rep #: [id number] : 1960 Provider: [facility] Age/Sex: 57/F Location: [facility] Status: Signed Intake Vital Signs05/22/18 Height 5 ft 3.5 in 05/22/18 Weight: 216 lb 05/22/18 Body Mass Index (BMI) 37.6 Intake Visit Reasons: Back pain Is patient in pain?: Yes Allergies aloe vera Allergy (Verified 05/04/18 13:47) Other doxycycline Allergy (Verified 05/04/18 13:47) Other hydrocodone bitartrate [From Vicodin] Allergy (Verified 05/04/18 13:47) Upset Stomach oxycodone HCl [From Percocet] Allergy (Verified 05/04/18 13:47) Other propoxyphene HCl [From Darvon] Allergy (Verified 05/04/18 13:47) Vomiting Medications Rosuvastatin Calcium [Crestor] 10 mg PO QHS 05/20/14 [History Confirmed 05/04/18] lactobacillus combination no.8 3 billion cell capsule 3,000 mmu cells PO QDAY 11/08/17 [History Confirmed 05/04/18] aclidinium bromide 400 mcg/actuation breath activated powder inhaler 1 inh INHALATION BID 04/18/18 [History Confirmed 05/04/18] cetirizine 10 mg capsule 10 mg PO DAILY 04/18/18 [History Confirmed 05/04/18] lorazepam 1 mg tablet 1 mg PO Q12H PRN #30 tab 04/18/18 [Rx Confirmed 05/04/18] turmeric root extract 500 mg capsule 500 mg PO BID 04/18/18 [History Confirmed 05/04/18] valacyclovir 500 mg tablet 500 mg PO DAILY #60 tab 04/18/18 [Rx Confirmed 05/04/18] esomeprazole magnesium 20 mg capsule,delayed release 20 mg PO BID #180 cap 04/27/18 [Rx Confirmed 05/04/18] tbfevw-usojpalz-cyylmki 3,000-9,500-15,000 unit capsule,delayed releas 12.34817 cap PO TID #90 cap 05/04/18 [Rx Confirmed 05/04/18] PFSH Medical History Abnormal colonoscopy (Acute) Acute asthma (Acute) Arthritis (Acute) Carpal tunnel syndrome (Acute) Environmental allergies (Acute) GERD (gastroesophageal reflux disease) (Acute) High cholesterol (Acute) High triglycerides (Acute) History Valvular Surgery (Acute) History of cancer of vulva (Acute) Hx TIA/stroke w/o resid (Acute) Hx of colon cancer, stage I (Acute) IBS (irritable bowel syndrome) (Acute) Sleep apnea (Acute) Seasonal allergies (Chronic) Surgical History History of bladder surgery (Acute) History of breast surgery (Acute) History of cardiac cath (Acute) History of carpal tunnel release (Acute) History of cataract surgery (Acute) History of cornea transplant (Acute) History of esophagogastroduodenoscopy (EGD) (Acute) History of nasal septoplasty (Acute) History of partial hysterectomy (Acute) history of bladder sling (Acute) Family History Other Alcoholism Alzheimer disease Anxiety Arthritis Asthma Breast cancer Cervical cancer Colon cancer Depression Heart disease High cholesterol Lung cancer Suicidal behavior Social History Smoking Status: Current every day smoker tobacco type: cigarettes quit status: not considering quitting alcohol intake: never substance use type: does not use what type of physical activity do you participate in: none HPI Back pain: Chief Complaint: Neck and low back pain Visit Number: 7 Details: DEVON BARAHONA is a 57 year old F who presents with increased neck and low back pain. Devon states that over the past week she has been experiencing pain and tingling radiating into the hands and legs, specifically at night. Today Devon rates her pain a 4/10 and describes it as a tight and sore ache banding across the neck, rotation and lifting causes increased pain. Devon also complains of low back pain, described as a sharp shooting radiating across the back. Bending, lifting, and twisting cause increased pain. Location: neck and low back pain Duration: intermittent Aggravating or associated factors: bending, lifting, twisting Relieving factors: chiro Pain Quality: aching, dull, cramping, sharp Exam Musc General: Yes normal posture, normal gait, joint tenderness (C3,C6,T5, L2, L3, L5, L>R SI jt.) and decreased ROM Cervical Spine: loss of normal cervical lordosis, cervical muscular tenderness, pain with cervical ROM, cervical spasm, cervical ROM abnormal Thoracic/Lumbar Spine: thoracic and lumbar spine normal to inspection (L post rotation of pelvis), Lasegue's sign positive, pain with thoraco-lumbar ROM, paraspinal tenderness bilaterally in the lower lumbar and in the mid lumbar, thoraco- lumbar ROM limited, thoraco-lumbar spasm bilaterally in the lower lumbar, in the upper thoracic and in the mid thoracic Sacroiliac joints: on the left Sacrum: tenderness Office Procedures Chiropractic Treatments Procedures Manipulation: 3-4 regions (C3,C6,T5, L2, L5, LIL) Assessment AND Plan 1. Segmental and somatic dysfunction of cervical region M99.01 Orders Orders: 2. Segmental and somatic dysfunction of pelvic region M99.05 Orders Orders: 3. Segmental and somatic dysfunction of thoracic region M99.02 Orders Orders: 4. Segmental and somatic dysfunction of lumbar region M99.03 Orders Orders: Plan Detail Additional Comments Patients front clerk ordered imaging to further identify cause of numbness. Goals Decrease pain Increase ROM Follow Up 2 Weeks Coding Level of Care Code No Charge Diagnoses Segmental and somatic dysfunction of cervical region M99.01 Segmental and somatic dysfunction of pelvic region M99.05 Segmental and somatic dysfunction of thoracic region M99.02 Segmental and somatic dysfunction of lumbar region M99.03 Additional Codes Procedures - Manipulation: 3-4 regions (75308) 05/22/18 1416 <Electronically signed by [facility]> Date [facility] Cosigner Signature: Date (if applicable) CC: CNCO Observed: 05/15/2018 Status: COMPLETED Source: [place] 12:00 AM [facility] REPOSITORY Letter Text Christina Zamudio DO [facility] [address] [place] [address] Devon Barahona May 15, 2018 Devon Barahona [id number] [facility] [address] Dear Devon Barahona: Due to a change in your provider's schedule, it has become necessary to cancel the following appointment: Christina Zamudio DO Date: 07/17/18 Time: 11:20 a.m. We apologize for any inconvenience to you, however your provider would still like to see you. Please call us at [phone] to reschedule your appointment. Sincerely, Appointment Staff CHIROPRACTIC REPORT Observed: 05/10/2018 Status: F Source: DEXTER 8:05 AM [facility] REPOSITORY [facility] [address] [place], [place] [id number] OFFICE VISIT Date of Service: 05/02/18 MR#: [id number] Acct: [id number] Name: DEVON BARAHONA Rep #: [id number] : 1960 Provider: [facility] Age/Sex: 57/F Location: [facility] Status: Signed Intake Vital Signs05/02/18 Height 5 ft 3.5 in 05/02/18 Weight: 216 lb 10/16/18 Body Mass Index (BMI) 37.6 Intake Visit Reasons: Back pain Accompanied by: Is patient in pain?: Yes Allergies aloe vera Allergy (Verified 05/04/18 13:47) Other doxycycline Allergy (Verified 05/04/18 13:47) Other hydrocodone bitartrate [From Vicodin] Allergy (Verified 05/04/18 13:47) Upset Stomach oxycodone HCl [From Percocet] Allergy (Verified 05/04/18 13:47) Other propoxyphene HCl [From Darvon] Allergy (Verified 05/04/18 13:47) Vomiting Medications Rosuvastatin Calcium [Crestor] 10 mg PO QHS 05/20/14 [History Confirmed 05/04/18] lactobacillus combination no.8 3 billion cell capsule 3,000 mmu cells PO QDAY 11/08/17 [History Confirmed 05/04/18] aclidinium bromide 400 mcg/actuation breath activated powder inhaler 1 inh INHALATION BID 04/18/18 [History Confirmed 05/04/18] cetirizine 10 mg capsule 10 mg PO DAILY 04/18/18 [History Confirmed 05/04/18] lorazepam 1 mg tablet 1 mg PO Q12H PRN #30 tab 04/18/18 [Rx Confirmed 05/04/18] turmeric root extract 500 mg capsule 500 mg PO BID 04/18/18 [History Confirmed 05/04/18] valacyclovir 500 mg tablet 500 mg PO DAILY #60 tab 04/18/18 [Rx Confirmed 05/04/18] esomeprazole magnesium 20 mg capsule,delayed release 20 mg PO BID #180 cap 04/27/18 [Rx Confirmed 05/04/18] tmatse-kqpzsemr-ztwztfz 3,000-9,500-15,000 unit capsule,delayed releas 12.16386 cap PO TID #90 cap 05/04/18 [Rx Confirmed 05/04/18] PFSH Medical History Abnormal colonoscopy (Acute) Acute asthma (Acute) Arthritis (Acute) Carpal tunnel syndrome (Acute) Environmental allergies (Acute) GERD (gastroesophageal reflux disease) (Acute) High cholesterol (Acute) High triglycerides (Acute) History Valvular Surgery (Acute) History of cancer of vulva (Acute) Hx TIA/stroke w/o resid (Acute) Hx of colon cancer, stage I (Acute) IBS (irritable bowel syndrome) (Acute) Sleep apnea (Acute) Seasonal allergies (Chronic) Surgical History History of bladder surgery (Acute) History of breast surgery (Acute) History of cardiac cath (Acute) History of carpal tunnel release (Acute) History of cataract surgery (Acute) History of cornea transplant (Acute) History of esophagogastroduodenoscopy (EGD) (Acute) History of nasal septoplasty (Acute) History of partial hysterectomy (Acute) history of bladder sling (Acute) Family History Other Alcoholism Alzheimer disease Anxiety Arthritis Asthma Breast cancer Cervical cancer Colon cancer Depression Heart disease High cholesterol Lung cancer Suicidal behavior Social History Smoking Status: Current every day smoker tobacco type: cigarettes quit status: not considering quitting alcohol intake: never substance use type: does not use what type of physical activity do you participate in: none HPI Back pain: Chief Complaint: low back pain Visit Number: 6 Details: DEVON BARAHONA is a 57 year old F who presents with increased low back pain. She states that recently her back has become sore and tight leaving her with a sore ache that bands across the low back. Today the patient believes that her hips are out. Devon rates her pain a 4/10 and describes it as a deep ache that is on both sides of the low back, bending, lifting, twisting and rotation all cause increased pain. Devon denies any numbness, tingling, or radiculopathy. Location: low back Duration: constant Aggravating or associated factors: bending, lifting, and twisting Relieving factors: chiro Pain Quality: aching, dull, cramping, sharp Exam Musc General: Yes normal posture, normal gait, joint tenderness (C3,C6,T5, L2, L3, L5, L>R SI jt.) and decreased ROM Cervical Spine: loss of normal cervical lordosis, cervical muscular tenderness (slightly improved), pain with cervical ROM, cervical spasm (slightly improved), cervical ROM abnormal Thoracic/Lumbar Spine: thoracic and lumbar spine normal to inspection (L post rotation of pelvis), Lasegue's sign positive, pain with thoraco-lumbar ROM, paraspinal tenderness bilaterally in the lower lumbar and in the mid lumbar, thoraco- lumbar ROM limited, thoraco-lumbar spasm bilaterally in the lower lumbar and in the mid lumbar Sacroiliac joints: on the left Sacrum: tenderness Office Procedures Chiropractic Treatments Procedures Manipulation: 3-4 regions (C3,C6,T5, L2, L5, LIL) Assessment AND Plan 1. Bilateral low back pain without sciatica, unspecified chronicity M54.5 2. Segmental and somatic dysfunction of cervical region M99.01 Orders Orders: 3. Segmental and somatic dysfunction of pelvic region M99.05 Orders Orders: 4. Segmental and somatic dysfunction of thoracic region M99.02 Orders Orders: 5. Segmental and somatic dysfunction of lumbar region M99.03 Orders Orders: Plan Detail Goals Decrease pain Increase ROM Follow Up 2 Weeks Coding Level of Care Code No Charge Diagnoses Bilateral low back pain without sciatica, unspecified chronicity M54.5 Back pain location: low back pain Chronicity: unspecified Back pain laterality: bilateral Sciatica presence: without sciatica Segmental and somatic dysfunction of cervical region M99.01 Segmental and somatic dysfunction of pelvic region M99.05 Segmental and somatic dysfunction of thoracic region M99.02 Segmental and somatic dysfunction of lumbar region M99.03 Additional Codes Procedures - Manipulation: 3-4 regions (79194) 05/10/18 0805 <Electronically signed by [facility]> Date [facility] Cosigner Signature: Date (if applicable) CC: INTERNAL MEDICINE Observed: 05/04/2018 Status: F Source: [place] OFFICE VISIT 2:46 PM [facility] [place] [address] OFFICE VISIT Date of Service: 05/04/18 MR#: [id number] Acct: [id number] Name: DEVON BARAHONA Rep #: [id number] : 1960 Provider: Kolby Alaniz DO Age/Sex: 57/F Location: [facility] Status: Signed Intake Vital Signs05/04/18 Height 5 ft 3.5 in 05/04/18 Weight: 217 lb 05/04/18 Body Mass Index (BMI) 37.8 05/04/18 Blood Pressure 131/85 H Intake Visit Reasons: 2 WK FU Chief Complaint: 2 Wk FU Is patient in pain?: No Allergies aloe vera Allergy (Verified 05/04/18 13:47) Other doxycycline Allergy (Verified 05/04/18 13:47) Other hydrocodone bitartrate [From Vicodin] Allergy (Verified 05/04/18 13:47) Upset Stomach oxycodone HCl [From Percocet] Allergy (Verified 05/04/18 13:47) Other propoxyphene HCl [From Darvon] Allergy (Verified 05/04/18 13:47) Vomiting Medications Rosuvastatin Calcium [Crestor] 10 mg PO QHS 05/20/14 [History Confirmed 05/04/18] lactobacillus combination no.8 3 billion cell capsule 3,000 mmu cells PO QDAY 11/08/17 [History Confirmed 05/04/18] aclidinium bromide 400 mcg/actuation breath activated powder inhaler 1 inh INHALATION BID 04/18/18 [History Confirmed 05/04/18] cetirizine 10 mg capsule 10 mg PO DAILY 04/18/18 [History Confirmed 05/04/18] lorazepam 1 mg tablet 1 mg PO Q12H PRN #30 tab 04/18/18 [Rx Confirmed 05/04/18] turmeric root extract 500 mg capsule 500 mg PO BID 04/18/18 [History Confirmed 05/04/18] valacyclovir 500 mg tablet 500 mg PO DAILY #60 tab 04/18/18 [Rx Confirmed 05/04/18] esomeprazole magnesium 20 mg capsule,delayed release 20 mg PO BID #180 cap 04/27/18 [Rx Confirmed 05/04/18] oehxrs-otgsdgva-tghzcpi 3,000-9,500-15,000 unit capsule,delayed releas 12.67958 cap PO TID #90 cap 05/04/18 [Rx Confirmed 05/04/18] PFSH Medical History Abnormal colonoscopy (Acute) Acute asthma (Acute) Arthritis (Acute) Carpal tunnel syndrome (Acute) Environmental allergies (Acute) GERD (gastroesophageal reflux disease) (Acute) High cholesterol (Acute) High triglycerides (Acute) History Valvular Surgery (Acute) History of cancer of vulva (Acute) Hx TIA/stroke w/o resid (Acute) Hx of colon cancer, stage I (Acute) IBS (irritable bowel syndrome) (Acute) Sleep apnea (Acute) Seasonal allergies (Chronic) Surgical History History of bladder surgery (Acute) History of breast surgery (Acute) History of cardiac cath (Acute) History of carpal tunnel release (Acute) History of cataract surgery (Acute) History of cornea transplant (Acute) History of esophagogastroduodenoscopy (EGD) (Acute) History of nasal septoplasty (Acute) History of partial hysterectomy (Acute) history of bladder sling (Acute) Family History Other Alcoholism Alzheimer disease Anxiety Arthritis Asthma Breast cancer Cervical cancer Colon cancer Depression Heart disease High cholesterol Lung cancer Suicidal behavior Social History Smoking Status: Current every day smoker tobacco type: cigarettes quit status: not considering quitting alcohol intake: never substance use type: does not use what type of physical activity do you participate in: none HPI HPI Chief Complaint: 2 Wk FU Details: DEVON BARAHONA, is a 57 F who presents to the office today for ROS Const Constitutional: No chills, fatigue, fever(s), frequent falls, malaise, weakness, sleep problems or change in appetite Eyes Eyes: No blurry vision, change in vision, double vision, discharge or visual disturbances ENT ENT: No abnormal hearing, ear pain, ear pressure, tinnitus or dizziness/vertigo Resp Respiratory: No cough, shortness of breath or wheezing Cardio Cardiology: No chest pain at rest, chest pain with exertion, shortness of breath, dyspnea on exertion, generalized swelling, irregular heart rhythm, lightheadedness, orthopnea, fast heart rate or palpitations Gastro GI: No abdominal pain, change in bowel habits, constipation, diarrhea, nausea/dyspepsia or vomiting Genitourinary-Female: No difficulty urinating, burning urination, painful urination, urinary incontinence, urinary frequency, urinary urgency, urinary hesitancy, urinary retention, Frequent nighttime urination/ nocturia, sexual problems, genital lesions, abnormal vaginal bleeding, pelvic pain, vaginal dryness, vaginal odor or Vaginal Itching Musc Musculoskeletal: No joint pain, back pain, joint swelling, limited range of motion, muscle weakness, numbness or tingling Skin Skin: No change in skin color, itching, rash or wounds Breast Breast: No breast lump or breast pain Neuro Neurology: No frequent falls, weakness, abnormal hearing, numbness, tingling, unsteady gait/balance, dizziness, loss of vision, memory loss or visual disturbances Psych Psychiatric: No memory loss, No anxiety, No change in appetite, No depression, No Thoughts of harming yourself/Others Endo Endocrine: No fatigue, heat intolerance, increased thirst/drinking, increased hunger or increased urination Aller/Imm Allergy/Immunologic: No wheezing, itchy eyes or seasonal allergy symptoms Ranjan/Lymp Hematologic/Lymphatic: No easy bleeding, easy bruising or enlarged lymph nodes Exam Const General: cooperative, no acute distress Nutritional Appearance: overweight Neck Neck: normal visual inspection Neck mass: No Resp Effort AND Inspection: normal respiratory effort Auscultation: Bilateral: Clear to Auscultation Cardio Rate: regular rate Rhythm: regular rhythm GI Inspection: obesity Palpation: tender (over the xyphoid process), soft Musc Musculoskeletal: No muscle weakness Skin General: no rashes or lesions noted Neuro General: alert Cranial Nerves: CN's II-XI intact bilaterally Cognition: normal cognition Speech: speech normal Gait: normal gait Extrem General: no clubbing, cyanosis or edema Psych Appearance: grossly normal Mood: congruent mood Affect: normal affect Speech and Movement: speech and movement normal Attitude: cooperative Judgment: judgment good Office Meds Flucelvax Quad [id number] (PF) Performing Provider: Kolby Alaniz DO Administered by: Radha Wilson on 05/04/18 14:45 Dose Route Admin Location Lot Number Expiration Date NDC Utility [employer]ster 60 mcg IM Rt Deltoid [id number] 12/15/18 52809-503-87 SEQIRUS Assessment AND Plan Problems 1. Gastroesophageal reflux disease without esophagitis K21.9 Patient has a long history of esophageal reflux she takes Nexium and the prescription has gone through 2. Radicular low back pain M54.10 She complains of what she describes as sciatica she does have bilateral radicular leg pain but there is nothing on examination that would make me suspicious of sciatica. 3. Pain in left lower leg M79.662 Couple of months ago she ran into a railing with her left leg, x-rays have been normal. 4. Bilateral headaches R51 She claims she has bilateral stabbing headaches basically bitemporal headaches that are very severe but she is had them for a long period of time. MRI was ordered as she has not had any immaging studies 5. Recurrent herpes simplex B00.9 Patient has a history of recurrent herpes simplex she uses Zovirax cream but she wonders if she can get on an oral medication to prevent these problems rather than treat them after they occur. 6. Hyperhidrosis R61 Patient has hyperhidrosis she has a long history of excessive sweating. 7. Hirsutism L68.0 8. Abdominal bloating with cramps R14.0; R10.9 Patient has a long-standing history of bloating after she eats, all of her blood work was normal, will try her on creon, and see if that helps Plan Creon was ordered an MRI of the head was ordered to evaluate her bitemporal headaches. Physically she looks stable just the same as she had on her initial exam. Orders Orders: Medications New: bkihes-ebfculna-jowxklj 3,000-9,500- 15,000 unit (Creon)12.01427 caps PO TID 90 caps 2RF ; do not crush/chew; swallow whole OR open/sprinkle on applesce; DNExceed 10,000 units/kg lipase/24 hrs Discontinued: Fluad 2017- 65yr up(PF)45 mcg(15 mcgx3)/0.5 mL intramus0.5 mL IM ONCE 0.5 mL 0RF NS Z23 cular syringe (flu vac 2018 [id number](PF)) Discont inued Reason: Incorrect ordering MD Plan Detail Goals Decrease pain Increase ROM Follow Up 2 Months Coding Level of Care Code Off vis,est,level 3 Diagnoses Gastroesophageal reflux disease without esophagitis K21.9 Esophagitis presence: without esophagitis Radicular low back pain M54.10 Pain in left lower leg M79.662 Bilateral headaches R51 Recurrent herpes simplex B00.9 Hyperhidrosis R61 Hirsutism L68.0 Abdominal bloating with cramps R14.0; R10.9 05/04/18 1446 <Electronically signed by Kolby Alaniz DO> Date Kolby Alaniz DO Cosigner Signature: Date (if applicable) CC: INTERNAL MEDICINE Observed: 04/18/2018 Status: F Source: [place] OFFICE VISIT 4:56 PM [facility] [address] [place] [address] [place] [address] OFFICE VISIT Date of Service: 04/18/18 MR#: [id number] Acct: [id number] Name: DEVON BARAHONA Rep #: [id number] : 1960 Provider: Kolby Alaniz DO Age/Sex: 57/F Location: [facility] Status: Signed Intake Vital Signs04/18/18 Height 5 ft 3.5 in 04/18/18 Weight: 216 lb 04/18/18 Body Mass Index (BMI) 37.6 04/18/18 Blood Pressure 120/80 04/18/18 Blood Pressure Location Lt brachial 04/18/18 Blood Pressure Position Sitting Intake Visit Reasons: EST CARE Chief Complaint: establish care Is patient in pain?: No Allergies aloe vera Allergy (Verified 05/25/14 19:31) Other doxycycline Allergy (Verified 05/25/14 19:31) Other hydrocodone bitartrate [From Vicodin] Allergy (Verified 05/25/14 19:31) Upset Stomach oxycodone HCl [From Percocet] Allergy (Verified 05/25/14 19:31) Other propoxyphene HCl [From Darvon] Allergy (Verified 05/25/14 19:31) Vomiting Medications Rosuvastatin Calcium [Crestor] 10 mg PO QHS 05/20/14 [History Confirmed 04/18/18] lactobacillus combination no.8 3 billion cell capsule 3,000 mmu cells PO QDAY 11/08/17 [History Confirmed 04/18/18] aclidinium bromide 400 mcg/actuation breath activated powder inhaler 1 inh INHALATION BID 04/18/18 [History Confirmed 04/18/18] acyclovir 5 % topical cream 1 applic TOPICAL .5 times a day PRN g 04/18/18 [History Confirmed 04/18/18] cetirizine 10 mg capsule 10 mg PO DAILY 04/18/18 [History Confirmed 04/18/18] esomeprazole magnesium 40 mg capsule,delayed release 40 mg PO DAILY #30 cap 04/18/18 [Rx Confirmed 04/18/18] lorazepam 1 mg tablet 1 mg PO Q12H PRN #30 tab 04/18/18 [Rx Confirmed 04/18/18] turmeric root extract 500 mg capsule 500 mg PO BID 04/18/18 [History Confirmed 04/18/18] valacyclovir 500 mg tablet 500 mg PO DAILY #60 tab 04/18/18 [Rx Confirmed 04/18/18] zolpidem 10 mg tablet 10 mg PO QHS PRN 04/18/18 [History Confirmed 04/18/18] Post menopausal: Yes PFSH Medical History Abnormal colonoscopy (Acute) Seasonal allergies (Chronic) Acute asthma (Acute) Arthritis (Acute) Carpal tunnel syndrome (Acute) Environmental allergies (Acute) GERD (gastroesophageal reflux disease) (Acute) High cholesterol (Acute) High triglycerides (Acute) History Valvular Surgery (Acute) History of cancer of vulva (Acute) Hx TIA/stroke w/o resid (Acute) Hx of colon cancer, stage I (Acute) IBS (irritable bowel syndrome) (Acute) Sleep apnea (Acute) Surgical History History of cardiac cath (Acute) History of carpal tunnel release (Acute) History of esophagogastroduodenoscopy (EGD) (Acute) History of nasal septoplasty (Acute) history of bladder sling (Acute) History of bladder surgery (Acute) History of breast surgery (Acute) History of cataract surgery (Acute) History of cornea transplant (Acute) History of partial hysterectomy (Acute) Family History Other Alcoholism Alzheimer disease Anxiety Arthritis Asthma Breast cancer Cervical cancer Colon cancer Depression Heart disease High cholesterol Lung cancer Suicidal behavior Social History Smoking Status: Current every day smoker tobacco type: cigarettes quit status: not considering quitting alcohol intake: never substance use type: does not use what type of physical activity do you participate in: none HPI HPI Chief Complaint: establish care Details: DEVON BARAHONA, is a 57 F who presents to the office today for a large number of problems. She complains of her stomach bloating she says when she eats her abdomen swells up and she has a difficult time with digestion she knows she has history of reflux but the medicine is not helped. She wonders if we can prescribe Nexium as she has been paying for it [id number]. She has trouble with her throat feeling clogged she claims she has bilateral sciatic nerve pain she claims she has arthritis of the left hip. She also has left leg pain on the anterior shaft of the leg she frequently has bitemporal severe headaches that come and go. She is worried that her memory is not very good. She is concerned about recurrent cold sores and thinks there might be an oral medicine to take. She is concerned that she has sweaty spells all the time although she has had them for a long period of time. She is also concerned that she is developed significant hirsutism of the chin. In addition to all of these problems she is complaining of left shoulder pain. She states that her Ambien does not help her sleeping very much. And that she very much feels she needs the lorazepam. ROS Const Constitutional: No weight change, body ache, chills, fatigue, sleep problems, fever(s), change in appetite, snoring, weakness, frequent falls, headache(s) or excessive sweating Eyes Eyes: No change in vision, eye pain, light sensitivity or blurry vision ENT ENT: No headache(s), abnormal hearing, ear pain, tinnitus, nasal congestion, sore throat or neck pain Resp Respiratory: No snoring, cough, shortness of breath or wheezing Cardio Cardiology: No excessive sweating, chest pain at rest, chest pain with exertion, shortness of breath, dyspnea on exertion, palpitations, orthopnea or lightheadedness Gastro GI: Positive for heartburn; no abdominal pain, change in bowel habits, constipation, diarrhea, vomiting, nausea/dyspepsia or cramping Genitourinary-Female: No burning urination, painful urination, urinary incontinence, urinary frequency, abnormal vaginal bleeding, pelvic pain or other Musc Musculoskeletal: No neck pain, abnormal walking, joint pain, back pain, limited range of motion, numbness or tingling Skin Skin: No redness, dry skin, itching, lesions, wounds or rash Neuro Neurology: Positive for memory loss; no weakness, frequent falls, headache(s), abnormal hearing, abnormal walking, numbness, tingling, abnormal speech or dizziness Psych Psychiatric: No change in appetite, Positive for memory loss, No anxiety, No depression, No Thoughts of harming yourself/Others Endo Endocrine: No fatigue, excessive sweating, cold intolerance, increased thirst/drinking, heat intolerance, flushing or increased hunger Aller/Imm Allergy/Immunologic: No wheezing, itchy eyes, hives or seasonal allergy symptoms Ranjan/Lymp Hematologic/Lymphatic: No easy bleeding, easy bruising or enlarged lymph nodes Exam Const General: cooperative, no acute distress Nutritional Appearance: overweight HENMT Head: normal to inspection Ears: hearing grossly normal bilaterally Nose: external nose normal Face and sinus: normal facial exam Mouth: oral mucosae normal Eyes General: appearance normal, both eyes and all related structures Pupils: PERRL Neck Neck: no lymphadenopathy Neck mass: No Thyroid: thyroid normal Resp Effort AND Inspection: symmetric chest movement, normal respiratory effort Auscultation: Bilateral: Clear to Auscultation Cardio Rate: regular rate Rhythm: regular rhythm GI Inspection: normal to inspection Auscultation: normal bowel sounds Percussion: normal to percussion Palpation: no hepatosplenomegaly Musc Musculoskeletal: Yes joint tenderness (left shoulder) Cervical Spine: normal cervical lordosis Thoracic/Lumbar Spine: thoracic and lumbar spine normal to inspection, straight leg raise negative bilaterally Skin General: no rashes or lesions noted Neuro General: oriented x3, moves all extremities, normal light touch, pain and propioception Cognition: normal cognition Speech: speech normal Gait: normal gait Motor: muscle tone normal throughout Extrem General: no clubbing, cyanosis or edema Psych Appearance: grossly normal Mental Status: mental status grossly normal Mood: anxious mood Affect: normal affect Speech and Movement: speech and movement normal Thought Process: normal Judgment: fair Assessment AND Plan Problems 1. Abdominal bloating with cramps R14.0; R10.9 Patient has a long-standing history of bloating after she eats and having cramping she has no weight loss no diarrhea no vomiting. There is a possibility of chronic pancreatic insufficiency which I will attempt a workup at a later time. 2. Gastroesophageal reflux disease without esophagitis K21.9 Patient has a long history of esophageal reflux she takes Nexium but has had to pay for it [id number] she requested me to write it as a prescription and see if her insurance would cover the medication. 3. Radicular low back pain M54.10 She complains of what she describes as sciatica she does have bilateral radicular leg pain but there is nothing on examination that would make me suspicious of sciatica. 4. Pain in left lower leg M79.662 Couple of months ago she ran into a railing with her left leg he continues to be sore she is concerned about a subtle fracture and x-rays were ordered. 5. Bilateral headaches R51 She claims she has bilateral stabbing headaches basically bitemporal headaches that are very severe but she is had him for a long period of time. 6. Recurrent herpes simplex B00.9 Patient has a history of recurrent herpes simplex she uses Zovirax cream but she wonders if she can get on an oral medication to prevent these problems rather than treat them after they occur. 7. Hyperhidrosis R61 Patient has hyperhidrosis she has a long history of excessive sweating. 8. Hirsutism L68.0 9. Chronic left shoulder pain M25.512; G89.29 Plan I try to handle this patient is best I could because she really had a long laundry list of complaints I told her that we would start with the workup and check in a couple of weeks to try and see if I can give some answers to her questions about her health status. Orders Orders: Medications New: Plan Detail Goals Decrease pain Increase ROM Follow Up 2 Weeks Coding Level of Care Code Off vis,new,level 4 Diagnoses Abdominal bloating with cramps R14.0; R10.9 Gastroesophageal reflux disease without esophagitis K21.9 Esophagitis presence: without esophagitis Radicular low back pain M54.10 Pain in left lower leg M79.662 Bilateral headaches R51 Recurrent herpes simplex B00.9 Hyperhidrosis R61 Hirsutism L68.0 Chronic left shoulder pain M25.512; G89.29 Chronicity: chronic 04/18/18 1656 <Electronically signed by Kolby Alaniz DO> Date Kolby Alaniz DO Cosigner Signature: Date (if applicable) CC: CHIROPRACTIC REPORT Observed: 04/18/2018 Status: F Source: [place]TER 4:44 PM [facility] REPOSITORY [facility] [address] [place] [address] OFFICE VISIT Date of Service: 04/18/18 MR#: [id number] Acct: [id number] Name: DEVON BARAHONA Rep #: [id number] : 1960 Provider: Sultana [facility] D.C. Age/Sex: 57/F Location: [facility] Status: Signed Intake Vital Signs04/18/18 Height 5 ft 3 in 04/18/18 Weight: 220 lb 04/18/18 Body Mass Index (BMI) 38.9 Intake Visit Reasons: Back pain Chief Complaint: back pain Accompanied by: Is patient in pain?: Yes Allergies aloe vera Allergy (Verified 05/25/14 19:31) Other doxycycline Allergy (Verified 05/25/14 19:31) Other hydrocodone bitartrate [From Vicodin] Allergy (Verified 05/25/14 19:31) Upset Stomach oxycodone HCl [From Percocet] Allergy (Verified 05/25/14 19:31) Other propoxyphene HCl [From Darvon] Allergy (Verified 05/25/14 19:31) Vomiting Medications Rosuvastatin Calcium [Crestor] 10 mg PO QHS 05/20/14 [History Confirmed 04/18/18] lactobacillus combination no.8 3 billion cell capsule 3,000 mmu cells PO QDAY 11/08/17 [History Confirmed 04/18/18] aclidinium bromide 400 mcg/actuation breath activated powder inhaler 1 inh INHALATION BID 04/18/18 [History Confirmed 04/18/18] acyclovir 5 % topical cream 1 applic TOPICAL .5 times a day PRN g 04/18/18 [History Confirmed 04/18/18] cetirizine 10 mg capsule 10 mg PO DAILY 04/18/18 [History Confirmed 04/18/18] esomeprazole magnesium 40 mg capsule,delayed release 40 mg PO DAILY #30 cap 04/18/18 [Rx Confirmed 04/18/18] lorazepam 1 mg tablet 1 mg PO Q12H PRN #30 tab 04/18/18 [Rx Confirmed 04/18/18] turmeric root extract 500 mg capsule 500 mg PO BID 04/18/18 [History Confirmed 04/18/18] valacyclovir 500 mg tablet 500 mg PO DAILY #60 tab 04/18/18 [Rx Confirmed 04/18/18] zolpidem 10 mg tablet 10 mg PO QHS PRN 04/18/18 [History Confirmed 04/18/18] PFSH Medical History Acute asthma (Acute) Arthritis (Acute) Carpal tunnel syndrome (Acute) Environmental allergies (Acute) GERD (gastroesophageal reflux disease) (Acute) High cholesterol (Acute) High triglycerides (Acute) History Valvular Surgery (Acute) History of cancer of vulva (Acute) Hx TIA/stroke w/o resid (Acute) Hx of colon cancer, stage I (Acute) IBS (irritable bowel syndrome) (Acute) Sleep apnea (Acute) Surgical History History of bladder surgery (Acute) History of breast surgery (Acute) History of cataract surgery (Acute) History of cornea transplant (Acute) History of partial hysterectomy (Acute) Family History Other Alcoholism Anxiety Arthritis Asthma Breast cancer Cervical cancer Colon cancer Depression Heart disease High cholesterol Suicidal behavior Social History Smoking Status: Current every day smoker tobacco type: cigarettes quit status: not considering quitting alcohol intake: never substance use type: does not use what type of physical activity do you participate in: none HPI Back pain: Chief Complaint: Low back pain Visit Number: 5 Details: DEVON BARAHONA is a 57 year old F who presents with neck and low back pain. She states that her back pain has increased, leaving her with a tight ache that bands across her low back. Today Devon rates her pain a 3/10 and describes it as a tight and sharp ache that bands across the back, into the hips. The patient also complains of tightness and pain across the neck and shoulders, although denies any numbness or tingling. Location: neck and low back Duration: intermittent Aggravating or associated factors: bending, lifting, and twisting Relieving factors: chiro Pain Quality: aching, dull, cramping Exam Musc General: Yes normal posture, normal gait, joint tenderness (C3,C6,T5, L2, L3, L5, L>R SI jt.) and decreased ROM Cervical Spine: loss of normal cervical lordosis, cervical muscular tenderness (slightly improved), pain with cervical ROM, cervical spasm (slightly improved), cervical ROM abnormal Thoracic/Lumbar Spine: thoracic and lumbar spine normal to inspection (L post rotation of pelvis), Lasegue's sign positive, pain with thoraco-lumbar ROM, paraspinal tenderness (slightly improved), thoraco-lumbar ROM limited, thoraco-lumbar spasm on the right in the lower lumbar Sacroiliac joints: on the left Sacrum: tenderness Office Procedures Chiropractic Treatments Procedures Manipulation: 3-4 regions (C3,C6,T5, L2,L5, LIL) Assessment AND Plan 1. Acute bilateral low back pain without sciatica M54.5 2. Segmental and somatic dysfunction of cervical region M99.01 Orders Orders: 3. Segmental and somatic dysfunction of pelvic region M99.05 Orders Orders: 4. Segmental and somatic dysfunction of thoracic region M99.02 Orders Orders: 5. Segmental and somatic dysfunction of lumbar region M99.03 Orders Orders: Plan Detail Goals Decrease pain Increase ROM Follow Up 2 Weeks Coding Level of Care Code No Charge Diagnoses Acute bilateral low back pain without sciatica M54.5 Back pain location: low back pain Chronicity: acute Back pain laterality: bilateral Sciatica presence: without sciatica Segmental and somatic dysfunction of cervical region M99.01 Segmental and somatic dysfunction of pelvic region M99.05 Segmental and somatic dysfunction of thoracic region M99.02 Segmental and somatic dysfunction of lumbar region M99.03 Additional Codes Procedures - Manipulation: 3-4 regions (62639) 04/18/18 1644 <Electronically signed by Sultana [facility] D.C.> Date Sultana [facility] D.C. Cosigner Signature: Date (if applicable) CC: TESTOSTERONE, SERUM TOTAL Collected: 04/18/2018 Status: F Source: DEXTER 3:50 PM [facility] REPOSITORY TYPE CODE TESTS RESULT OUT OF REFERENCE UNITS RANGE LAB L509.3000 ng/dL Testosterone Normal 20.35 Result Comment: NORMAL REFERENCE RANGES MALE AGE <50 123.06 - 813.86 ng/dL MALE AGE >50 89.98 - 780.10 ng/dL FEMALE PREMENOPAUSE AGE 21 - 60 9.01 - 47.94 ng/dL FEMALE POSTMENOPAUSE AGE 45 - 89 <7.00 - 45.62 ng/dL REFERENCE RANGE AND METHODOLOGY CHANGED 07/06/2017 Performed By: #### L509.3000 #### [facility] [address] [place], [address] ERYTHROCYTE SED RATE Collected: 04/18/2018 Status: F Source: DEXTER 3:40 PM [facility] REPOSITORY TYPE CODE TESTS RESULT OUT OF RANGE REFERENCE UNITS LAB L102.0000 0-30 mm/hr Normal SED RATE 23 Performed By: #### L101.9900 #### [facility] [address] [place], [address] COMPREHENSIVE METABOLIC Collected: 04/18/2018 Status: F Source: [facility] 3:40 PM [facility] REPOSITORY TYPE CODE TESTS RESULT OUT OF RANGE REFERENCE UNITS LAB L501.0100 74-106 mg/dL Normal GLU 86 Result Comment: Please note revised GLUCOSE reference range effective 2017. LAB L501.1000 7-18 mg/dL Normal BUN 8 LAB L501.1100 0.55-1.02 mg/dL Normal CREAT,SERUM 0.72 Result Comment: The validity of the calculated GFR AND GFRAA in patients over 70 years has not been determined. Clinical correlation is essential. LAB L501.1110 >60 mL/min Normal EST GFR 89 Result Comment: Non- GFR Calc LAB L501.1115 >60 mL/min Normal EST GFR - AA 107 Result Comment: GFR Calc LAB L501.1300 10-20 RATIO Normal BUN/CRE 11.1 LAB L501.1500 6.4-8.2 g/dL T Normal PROT 7.8 LAB L501.1800 3.2-5.0 g/dL Normal ALB 3.9 LAB L501.1950 2.2-4.2 g/dL Normal GLOB 3.9 LAB L501.2000 0.9-2.4 RATIO Normal A/G 1.0 LAB L501.2200 8.5-10.1 mg/dL CA Normal 9.1 LAB L501.4100 15-37 U/L Low AST 14 LAB L501.4305 45-117 U/L High ALK P 130 LAB L501.4405 13-56 U/L Normal ALT 27 LAB L501.4600 0.20-1.00 mg/dL High T BILI 1.10 LAB L501.5300 136-145 mmol/L NA Normal 139 LAB L501.5600 3.5-5.1 mmol/L K Normal 3.9 LAB L501.5900 98-107 mmol/L CL Normal 106 LAB L501.6100 21.0-32.0 mmol/L Normal CO2 25.0 LAB L501.6200 5-15 Normal GAP 8 Performed By: #### L500.4050, L500.4100, L501.9520 #### [facility] [address] [place], [address] LIPID PROFILE Collected: 04/18/2018 Status: F Source: [place] 3:40 PM [facility] REPOSITORY TYPE CODE TESTS RESULT OUT OF RANGE REFERENCE UNITS LAB L501.4900 200 mg/dL Normal CHOL 168 Result Comment: <200 mg/dL Desirable 200-240 mg/dL Borderline >240 mg/dL High Risk LAB L501.5000 mg/dL Normal TRIG 130 Result Comment: The drugs N-Acetylcysteine and Metamizole may falsely depress this assay. Serum Triglycerides Reference Interval Normal <150 mg/dL Borderline high 150 - 199 mg/dL High 200 - 499 mg/dL Very High > or = 500 mg/dL LAB L501.6400 mg/dL Normal HDL 41 Result Comment: The drugs N-Acetylcysteine and Metamizole may falsely depress this assay. Reference Range HDL <40 mg/dL Low HDL Cholesterol HDL >or= 60 mg/dL High HDL Cholesterol LAB L501.6500 0-130 mg/dL Normal LDL 101 LAB L501.6600 5-40 mg/dL Normal VLDL 26 Performed By: #### L500.4050, L500.4100, L501.9520 #### [facility] [address] [facility] [place], [address] THYROID STIM HORMONE Collected: 04/18/2018 Status: F Source: DEXTER (TSH) 3:40 PM [facility] REPOSITORY TYPE CODE TESTS RESULT OUT OF RANGE REFERENCE UNITS LAB L501.9520 0.358-3.74 uIU/mL Normal TSH 0.91 Performed By: #### L500.4050, L500.4100, L501.9520 #### [facility] [address], [address] TIBIA AND FIBULA Observed: 04/18/2018 Status: F Source: GOPAL 2 VIEWS 3:38 PM [facility] REPOSITORY [facility] Imaging Services [address] [place] [address] Tibia AND Fibula 2 Views MR#: [id number] Acct: [id number] Name: DEVON BARAHONA Rep #: [id number] : 1960 F 57 From: Homer Ambrose DO PCP: Kolby Alaniz DO Status: REG CLI Study: Tibia AND Fibula 2 Views Date of Exam: 04/18/18 Exam# [id number] Ordering Dr: Kolby Alaniz DO STUDY: X-RAY - LEFT TIBIA AND FIBULA REASON FOR EXAM: Female, 57 years old. Hit mid to upper anterior tibial several times. Pain. TECHNIQUE: 2 view(s) of the tibia and fibula were obtained. COMPARISON: None. FINDINGS: Normal visualized tibia. Normal visualized fibula. There is no acute fracture, dislocation or destructive osseous pathology. The knee and ankle appear grossly unremarkable. The soft tissue structures are unremarkable. RAD/Tibia AND Fibula 2 Views IMPRESSION: Normal x-ray examination of the tibia and fibula. Electronically Signed: Homer Ambrose DO at 23:54 EDT Tel [phone], Service support , CC: Kolby Alaniz DO Knockout Machine Operator: Signed CHIROPRACTIC REPORT Observed: 04/06/2018 Status: F Source: DEXTER 2:36 PM [facility] [address] [place] [address] OFFICE VISIT Date of Service: 04/06/18 MR#: [id number] Acct: [id number] Name: DEVON BARAHONA Rep #: [id number] : 1960 Provider: Sultana Norht D.C. Age/Sex: 57/F Location: [facility] Status: Signed Intake Vital Signs04/06/18 Height 5 ft 3 in 04/06/18 Weight: 220 lb 04/06/18 Body Mass Index (BMI) 38.9 Intake Visit Reasons: Back pain Chief Complaint: back pain Is patient in pain?: Yes Allergies aloe vera Allergy (Verified 05/25/14 19:31) Other doxycycline Allergy (Verified 05/25/14 19:31) Other hydrocodone bitartrate [From Vicodin] Allergy (Verified 05/25/14 19:31) Upset Stomach oxycodone HCl [From Percocet] Allergy (Verified 05/25/14 19:31) Other propoxyphene HCl [From Darvon] Allergy (Verified 05/25/14 19:31) Vomiting Medications Acetaminophen with Codeine [Tylenol with Codeine #4 Tablet] 1 ea PO Q6H PRN PRN 05/20/14 [History Confirmed 05/24/14] Albuterol Aerosols [Ventolin Aerosols] 2.5 mg INHALATION Q6H PRN PRN 05/20/14 [History Confirmed 05/24/14] Cyclobenzaprine [Flexeril] 10 mg PO TID PRN PRN 05/20/14 [History Confirmed 05/24/14] Esomeprazole Mag Trihydrate [Nexium] 40 mg PO BID 05/20/14 [History Confirmed 05/24/14] Gabapentin [Gralise] 300 mg PO QHS 05/20/14 [History Confirmed 05/24/14] Linaclotide [Linzess] 290 mcg PO DAILY 05/20/14 [History Confirmed 05/24/14] Lorazepam [Ativan] 1 mg PO Q6H PRN PRN 05/20/14 [History Confirmed 05/24/14] Rosuvastatin Calcium [Crestor] 10 mg PO QHS 05/20/14 [History Confirmed 05/24/14] Ciprofloxacin [Cipro] 500 mg PO BID #10 tab 05/25/14 [Rx] Fluconazole [Diflucan] 150 mg PO X1 #3 tab 05/25/14 [Rx] Oxycodone HCl/Acetaminophen [Percocet 5-325] 1 - 2 tab PO Q4H PRN PRN #30 tab 05/25/14 [Rx] esomeprazole magnesium 20 mg capsule,delayed release 20 mg PO QDAY 11/08/17 [History Confirmed 11/08/17] lactobacillus combination no.8 3 billion cell capsule 3,000 mmu cells PO QDAY 11/08/17 [History Confirmed 11/08/17] rosuvastatin 10 mg tablet 10 mg PO ONCE 11/08/17 [History Confirmed 11/08/17] PFSH Medical History Acute asthma (Acute) Arthritis (Acute) Carpal tunnel syndrome (Acute) Environmental allergies (Acute) GERD (gastroesophageal reflux disease) (Acute) High cholesterol (Acute) High triglycerides (Acute) History Valvular Surgery (Acute) History of cancer of vulva (Acute) Hx TIA/stroke w/o resid (Acute) Hx of colon cancer, stage I (Acute) IBS (irritable bowel syndrome) (Acute) Sleep apnea (Acute) Surgical History History of bladder surgery (Acute) History of breast surgery (Acute) History of cataract surgery (Acute) History of cornea transplant (Acute) History of partial hysterectomy (Acute) Family History Other Alcoholism Anxiety Arthritis Asthma Breast cancer Cervical cancer Colon cancer Depression Heart disease High cholesterol Suicidal behavior Social History Smoking Status: Current every day smoker tobacco type: cigarettes quit status: not considering quitting alcohol intake: never substance use type: does not use what type of physical activity do you participate in: none HPI Back pain: Chief Complaint: Low back pain Visit Number: 4 Details: DEVON BARAHONA is a 57 year old F who presents with low back and neck pain. She states that since over the weekend she was moving furniture causing a increase in low back pain from the pushing and pulling. Today Devon rates her pain a 4/10 and describes it as a deep ache that bands across the low back, bending, lifting and twisting cause increased pain. Her mid back has a grinding when she coughs and she feels like something is out. Devon denies any numbness, tingling, or radiculopathy. Location: low back pain Duration: intermittent Aggravating or associated factors: bending, lifting and twisting Relieving factors: chiro Pain Quality: aching, dull, cramping Exam Musc General: Yes normal posture, normal gait, joint tenderness (C3,C6,T5, L2, L3, L5, L>R SI jt.) and decreased ROM Cervical Spine: loss of normal cervical lordosis, cervical muscular tenderness (slightly improved) bilateral lower: paracervical muscle and trapezius, pain with cervical ROM with lateral flexion to right, with lateral flexion to left and with extension, cervical spasm (slightly improved) bilateral lower: trapezius and paracervical muscles, cervical ROM abnormal lateral flexion to the right decreased and lateral flexion to the left decreased Thoracic/Lumbar Spine: thoracic and lumbar spine normal to inspection (L post rotation of pelvis), Lasegue's sign positive on the left, pain with thoraco- lumbar ROM with forward flexion, with lateral flexion to the right and with lateral flexion to the left, paraspinal tenderness (slightly improved) on the left greater than right (lower lumbar, pelvis), thoraco-lumbar ROM limited with forward flexion and with lateral flexion to the left, thoraco-lumbar spasm bilaterally in the lower lumbar and on the right in the mid thoracic Sacroiliac joints: on the left Sacrum: tenderness on the right Office Procedures Chiropractic Treatments Procedures Manipulation: 3-4 regions (C3,C6,T5, L2, L5, LIL) Assessment AND Plan 1. Segmental and somatic dysfunction of cervical region M99.01 Orders Orders: 2. Segmental and somatic dysfunction of pelvic region M99.05 Orders Orders: 3. Segmental and somatic dysfunction of thoracic region M99.02 Orders Orders: 4. Segmental and somatic dysfunction of lumbar region M99.03 Orders Orders: Plan Detail Goals Decrease pain Increase ROM Follow Up PRN Coding Level of Care Code No Charge Diagnoses Segmental and somatic dysfunction of cervical region M99.01 Segmental and somatic dysfunction of pelvic region M99.05 Segmental and somatic dysfunction of thoracic region M99.02 Segmental and somatic dysfunction of lumbar region M99.03 Additional Codes Procedures - Manipulation: 3-4 regions (83979) 04/06/18 1436 <Electronically signed by Sultana [facility] D.C[facility]> Date [facility] Cosigner Signature: Date (if applicable) CC: CHIROPRACTIC REPORT Observed: 03/23/2018 Status: F Source: DEXTER 12:08 PM [facility] [address] [place] [address] OFFICE VISIT Date of Service: 03/21/18 MR#: [id number] Acct: [id number] Name: DEVON BARAHONA Rep #: [id number] : 1960 Provider: Sultana [facility] D.C. Age/Sex: 57/F Location: [facility] [place] Status: Signed Intake Vital Signs03/21/18 Height 5 ft 3 in 03/21/18 Weight: 220 lb 03/21/18 Body Mass Index (BMI) 38.9 Intake Visit Reasons: back pain Chief Complaint: back pain Is patient in pain?: Yes Allergies aloe vera Allergy (Verified 05/25/14 19:31) Other doxycycline Allergy (Verified 05/25/14 19:31) Other hydrocodone bitartrate [From Vicodin] Allergy (Verified 05/25/14 19:31) Upset Stomach oxycodone HCl [From Percocet] Allergy (Verified 05/25/14 19:31) Other propoxyphene HCl [From Darvon] Allergy (Verified 05/25/14 19:31) Vomiting Medications Acetaminophen with Codeine [Tylenol with Codeine #4 Tablet] 1 ea PO Q6H PRN PRN 05/20/14 [History Confirmed 05/24/14] Albuterol Aerosols [Ventolin Aerosols] 2.5 mg INHALATION Q6H PRN PRN 05/20/14 [History Confirmed 05/24/14] Cyclobenzaprine [Flexeril] 10 mg PO TID PRN PRN 05/20/14 [History Confirmed 05/24/14] Esomeprazole Mag Trihydrate [Nexium] 40 mg PO BID 05/20/14 [History Confirmed 05/24/14] Gabapentin [Gralise] 300 mg PO QHS 05/20/14 [History Confirmed 05/24/14] Linaclotide [Linzess] 290 mcg PO DAILY 05/20/14 [History Confirmed 05/24/14] Lorazepam [Ativan] 1 mg PO Q6H PRN PRN 05/20/14 [History Confirmed 05/24/14] Rosuvastatin Calcium [Crestor] 10 mg PO QHS 05/20/14 [History Confirmed 05/24/14] Ciprofloxacin [Cipro] 500 mg PO BID #10 tab 05/25/14 [Rx] Fluconazole [Diflucan] 150 mg PO X1 #3 tab 05/25/14 [Rx] Oxycodone HCl/Acetaminophen [Percocet 5-325] 1 - 2 tab PO Q4H PRN PRN #30 tab 05/25/14 [Rx] esomeprazole magnesium 20 mg capsule,delayed release 20 mg PO QDAY 11/08/17 [History Confirmed 11/08/17] lactobacillus combination no.8 3 billion cell capsule 3,000 mmu cells PO QDAY 11/08/17 [History Confirmed 11/08/17] rosuvastatin 10 mg tablet 10 mg PO ONCE 11/08/17 [History Confirmed 11/08/17] [facility] Medical History Acute asthma (Acute) Arthritis (Acute) Carpal tunnel syndrome (Acute) Environmental allergies (Acute) GERD (gastroesophageal reflux disease) (Acute) High cholesterol (Acute) High triglycerides (Acute) History Valvular Surgery (Acute) History of cancer of vulva (Acute) Hx TIA/stroke w/o resid (Acute) Hx of colon cancer, stage I (Acute) IBS (irritable bowel syndrome) (Acute) Sleep apnea (Acute) Surgical History History of bladder surgery (Acute) History of breast surgery (Acute) History of cataract surgery (Acute) History of cornea transplant (Acute) History of partial hysterectomy (Acute) Family History Other Alcoholism Anxiety Arthritis Asthma Breast cancer Cervical cancer Colon cancer Depression Heart disease High cholesterol Suicidal behavior Social History Smoking Status: Current every day smoker tobacco type: cigarettes quit status: not considering quitting alcohol intake: never substance use type: does not use what type of physical activity do you participate in: none HPI back pain : Chief Complaint: neck and low back pain Visit Number: 3 Details: DEVON BARAHONA is a 57 year old F who presents with neck and low back pain. She states that her neck and low back are tight and stiff, although she has not experienced any of her joints popping out of place since her last treatment. Today Devon rates her pain a 3/10, bending, lifting, and walking increase the pain although she denies any numbness, tingling, or radiculopathy. Location: neck and low back pain Duration: intermittent Aggravating or associated factors: bending, lifting and twisting Relieving factors: chiro Pain Quality: aching, dull, cramping, sharp Exam Musc General: Yes normal posture, normal gait, joint tenderness (C3,C6,T5, L2, L3, L5, L>R SI jt.) and decreased ROM Cervical Spine: loss of normal cervical lordosis, cervical muscular tenderness (slightly improved) bilateral lower: paracervical muscle and trapezius, pain with cervical ROM with lateral flexion to right, with lateral flexion to left and with extension, cervical spasm bilateral lower: trapezius and paracervical muscles, cervical ROM abnormal lateral flexion to the right decreased and lateral flexion to the left decreased Thoracic/Lumbar Spine: thoracic and lumbar spine normal to inspection (L post rotation of pelvis), Lasegue's sign positive on the left, pain with thoraco- lumbar ROM with forward flexion, with lateral flexion to the right and with lateral flexion to the left, paraspinal tenderness (slightly improved) on the left greater than right (lower lumbar, pelvis), thoraco-lumbar ROM limited with forward flexion and with lateral flexion to the left, thoraco-lumbar spasm bilaterally in the lower lumbar Sacroiliac joints: on the left Sacrum: tenderness on the right Office Procedures Chiropractic Treatments Procedures Manipulation: 3-4 regions (C6,T5, L2, L3, LIL) Assessment AND Plan 1. Segmental and somatic dysfunction of cervical region M99.01 Orders Orders: 2. Segmental and somatic dysfunction of pelvic region M99.05 Orders Orders: 3. Segmental and somatic dysfunction of thoracic region M99.02 Orders Orders: 4. Segmental and somatic dysfunction of lumbar region M99.03 Orders Orders: Plan Detail Goals Decrease pain Increase ROM Follow Up PRN Coding Level of Care Code No Charge Diagnoses Segmental and somatic dysfunction of cervical region M99.01 Segmental and somatic dysfunction of pelvic region M99.05 Segmental and somatic dysfunction of thoracic region M99.02 Segmental and somatic dysfunction of lumbar region M99.03 Additional Codes Procedures - Manipulation: 3-4 regions (08483) 03/23/18 1208 <Electronically signed by Sultana [facility]> Date [facility] Cosigner Signature: Date (if applicable) CC: CHIROPRACTIC REPORT Observed: 03/15/2018 Status: F Source: DEXTER 8:20 AM [facility] [address] [place] [address] OFFICE VISIT Date of Service: 03/13/18 MR#: [id number] Acct: [id number] Name: DEVON BARAHONA Rep #: [id number] : 1960 Provider: [facility] Age/Sex: 57/F Location: [facility] [place] Status: Signed Intake Vital Signs03/13/18 Height 5 ft 3 in 03/13/18 Weight: 220 lb 03/13/18 Body Mass Index (BMI) 38.9 Intake Visit Reasons: low back pain Chief Complaint: back pain Accompanied by: Is patient in pain?: Yes Allergies aloe vera Allergy (Verified 05/25/14 19:31) Other doxycycline Allergy (Verified 05/25/14 19:31) Other hydrocodone bitartrate [From Vicodin] Allergy (Verified 05/25/14 19:31) Upset Stomach oxycodone HCl [From Percocet] Allergy (Verified 05/25/14 19:31) Other propoxyphene HCl [From Darvon] Allergy (Verified 05/25/14 19:31) Vomiting Medications Acetaminophen with Codeine [Tylenol with Codeine #4 Tablet] 1 ea PO Q6H PRN PRN 05/20/14 [History Confirmed 05/24/14] Albuterol Aerosols [Ventolin Aerosols] 2.5 mg INHALATION Q6H PRN PRN 05/20/14 [History Confirmed 05/24/14] Cyclobenzaprine [Flexeril] 10 mg PO TID PRN PRN 05/20/14 [History Confirmed 05/24/14] Esomeprazole Mag Trihydrate [Nexium] 40 mg PO BID 05/20/14 [History Confirmed 05/24/14] Gabapentin [Gralise] 300 mg PO QHS 05/20/14 [History Confirmed 05/24/14] Linaclotide [Linzess] 290 mcg PO DAILY 05/20/14 [History Confirmed 05/24/14] Lorazepam [Ativan] 1 mg PO Q6H PRN PRN 05/20/14 [History Confirmed 05/24/14] Rosuvastatin Calcium [Crestor] 10 mg PO QHS 05/20/14 [History Confirmed 05/24/14] Ciprofloxacin [Cipro] 500 mg PO BID #10 tab 05/25/14 [Rx] Fluconazole [Diflucan] 150 mg PO X1 #3 tab 05/25/14 [Rx] Oxycodone HCl/Acetaminophen [Percocet 5-325] 1 - 2 tab PO Q4H PRN PRN #30 tab 05/25/14 [Rx] esomeprazole magnesium 20 mg capsule,delayed release 20 mg PO QDAY 11/08/17 [History Confirmed 11/08/17] lactobacillus combination no.8 3 billion cell capsule 3,000 mmu cells PO QDAY 11/08/17 [History Confirmed 11/08/17] rosuvastatin 10 mg tablet 10 mg PO ONCE 11/08/17 [History Confirmed 11/08/17] [facility] Medical History Acute asthma (Acute) Arthritis (Acute) Carpal tunnel syndrome (Acute) Environmental allergies (Acute) GERD (gastroesophageal reflux disease) (Acute) High cholesterol (Acute) High triglycerides (Acute) History Valvular Surgery (Acute) History of cancer of vulva (Acute) Hx TIA/stroke w/o resid (Acute) Hx of colon cancer, stage I (Acute) IBS (irritable bowel syndrome) (Acute) Sleep apnea (Acute) Surgical History History of bladder surgery (Acute) History of breast surgery (Acute) History of cataract surgery (Acute) History of cornea transplant (Acute) History of partial hysterectomy (Acute) Family History Other Alcoholism Anxiety Arthritis Asthma Breast cancer Cervical cancer Colon cancer Depression Heart disease High cholesterol Suicidal behavior Social History Smoking Status: Current every day smoker tobacco type: cigarettes quit status: not considering quitting alcohol intake: never substance use type: does not use what type of physical activity do you participate in: none HPI low back pain : Chief Complaint: L sided low back and neck pain Visit Number: 2 Details: DEVON BARAHONA is a 57 year old F who presents with L sided low back, mid back and neck pain. She states that upon rising this morning she was in pain with a feeling of her rib, L hip, and neck being out. Today Devon rates her pain a 5/10 and describes it as a tight and deep, sharp ache that increases with walking and bending. The patient denies any numbness, or tingling. Location: neck and low back Duration: constant Aggravating or associated factors: walking, sitting, bending and lifting Relieving factors: chiro Pain Quality: aching, dull, cramping, sharp Exam Musc General: Yes normal posture, normal gait, joint tenderness (C3,C6,T5, L2, L3, L5, L>R SI jt.) and decreased ROM Cervical Spine: loss of normal cervical lordosis, cervical muscular tenderness bilateral lower: paracervical muscle and trapezius, pain with cervical ROM with lateral flexion to right, with lateral flexion to left and with extension, cervical spasm bilateral lower: trapezius and paracervical muscles, cervical ROM abnormal lateral flexion to the right decreased and lateral flexion to the left decreased Thoracic/Lumbar Spine: thoracic and lumbar spine normal to inspection (L post rotation of pelvis), Lasegue's sign positive on the left, pain with thoraco- lumbar ROM with forward flexion, with lateral flexion to the right and with lateral flexion to the left, paraspinal tenderness on the left greater than right (lower lumbar, pelvis), thoraco-lumbar ROM limited with forward flexion and with lateral flexion to the left, thoraco-lumbar spasm bilaterally in the lower lumbar Sacroiliac joints: on the left Sacrum: tenderness on the right Office Procedures Chiropractic Treatments Procedures Manipulation: 3-4 regions (C3,C6,T5, L3, L5, LIL) Assessment AND Plan 1. Segmental and somatic dysfunction of cervical region M99.01 Orders Orders: 2. Segmental and somatic dysfunction of thoracic region M99.02 Orders Orders: 3. Segmental and somatic dysfunction of pelvic region M99.05 Orders Orders: 4. Segmental and somatic dysfunction of lumbar region M99.03 Orders Orders: Plan Detail Goals Decrease pain Increase ROM Follow Up PRN Coding Level of Care Code No Charge Diagnoses Segmental and somatic dysfunction of cervical region M99.01 Segmental and somatic dysfunction of thoracic region M99.02 Segmental and somatic dysfunction of pelvic region M99.05 Segmental and somatic dysfunction of lumbar region M99.03 Additional Codes Procedures - Manipulation: 3-4 regions (03808) 03/15/18 0820 <Electronically signed by Sultana [facility]C.> Date [facility] Cosigner Signature: Date (if applicable) CC: CHIROPRACTIC REPORT Observed: 03/06/2018 Status: F Source: DEXTER 2:05 PM [facility] [address] [place] [address] OFFICE VISIT Date of Service: 03/06/18 MR#: [id number] Acct: [id number] Name: JUNDEVON L Rep #: [id number] : 1960 Provider: [facility] Age/Sex: 57/F Location: [facility] [place] Status: Signed Intake Vital Signs03/06/18 Height 5 ft 3 in 03/06/18 Weight: 220 lb 03/06/18 Body Mass Index (BMI) 38.9 03/06/18 Height 5 ft 3 in 03/06/18 Weight: 220 lb 03/06/18 Body Mass Index (BMI) 38.9 Intake Visit Reasons: Back pain Chief Complaint: back pain Accompanied by: Is patient in pain?: Yes Allergies aloe vera Allergy (Verified 05/25/14 19:31) Other doxycycline Allergy (Verified 05/25/14 19:31) Other hydrocodone bitartrate [From Vicodin] Allergy (Verified 05/25/14 19:31) Upset Stomach oxycodone HCl [From Percocet] Allergy (Verified 05/25/14 19:31) Other propoxyphene HCl [From Darvon] Allergy (Verified 05/25/14 19:31) Vomiting Medications Acetaminophen with Codeine [Tylenol with Codeine #4 Tablet] 1 ea PO Q6H PRN PRN 05/20/14 [History Confirmed 05/24/14] Albuterol Aerosols [Ventolin Aerosols] 2.5 mg INHALATION Q6H PRN PRN 05/20/14 [History Confirmed 05/24/14] Cyclobenzaprine [Flexeril] 10 mg PO TID PRN PRN 05/20/14 [History Confirmed 05/24/14] Esomeprazole Mag Trihydrate [Nexium] 40 mg PO BID 05/20/14 [History Confirmed 05/24/14] Gabapentin [Gralise] 300 mg PO QHS 05/20/14 [History Confirmed 05/24/14] Linaclotide [Linzess] 290 mcg PO DAILY 05/20/14 [History Confirmed 05/24/14] Lorazepam [Ativan] 1 mg PO Q6H PRN PRN 05/20/14 [History Confirmed 05/24/14] Rosuvastatin Calcium [Crestor] 10 mg PO QHS 05/20/14 [History Confirmed 05/24/14] Ciprofloxacin [Cipro] 500 mg PO BID #10 tab 05/25/14 [Rx] Fluconazole [Diflucan] 150 mg PO X1 #3 tab 05/25/14 [Rx] Oxycodone HCl/Acetaminophen [Percocet 5-325] 1 - 2 tab PO Q4H PRN PRN #30 tab 05/25/14 [Rx] esomeprazole magnesium 20 mg capsule,delayed release 20 mg PO QDAY 11/08/17 [History Confirmed 11/08/17] lactobacillus combination no.8 3 billion cell capsule 3,000 mmu cells PO QDAY 11/08/17 [History Confirmed 11/08/17] rosuvastatin 10 mg tablet 10 mg PO ONCE 11/08/17 [History Confirmed 11/08/17] [facility] Medical History Acute asthma (Acute) Arthritis (Acute) Carpal tunnel syndrome (Acute) Environmental allergies (Acute) GERD (gastroesophageal reflux disease) (Acute) High cholesterol (Acute) High triglycerides (Acute) History Valvular Surgery (Acute) History of cancer of vulva (Acute) Hx TIA/stroke w/o resid (Acute) Hx of colon cancer, stage I (Acute) IBS (irritable bowel syndrome) (Acute) Sleep apnea (Acute) Surgical History History of bladder surgery (Acute) History of breast surgery (Acute) History of cataract surgery (Acute) History of cornea transplant (Acute) History of partial hysterectomy (Acute) Family History Other Alcoholism Anxiety Arthritis Asthma Breast cancer Cervical cancer Colon cancer Depression Heart disease High cholesterol Suicidal behavior Social History Smoking Status: Current every day smoker tobacco type: cigarettes quit status: not considering quitting alcohol intake: never substance use type: does not use what type of physical activity do you participate in: none HPI Back pain: Chief Complaint: Low back pain Visit Number: 1 Details: DEVON BARAHONA is a 57 year old F who presents with low back and neck pain. She states that overall her hips are doing better, leaving her with a tight ache that bands across the low back. Today Devon rates her pain a 4/10, her neck pain is tight and sore with a dull ache, she denies any numbness, tingling, or radiculopathy. Location: neck and low back Duration: intermittent Aggravating or associated factors: bending, lifting, twisting prolonged sitting Relieving factors: chiro Pain Quality: aching, dull, cramping, sharp Exam Musc General: Yes normal posture, normal gait, joint tenderness (C3,C6,T5, L2, L3, L5, L>R SI jt.) and decreased ROM Cervical Spine: loss of normal cervical lordosis, cervical muscular tenderness bilateral lower: paracervical muscle and trapezius, pain with cervical ROM with lateral flexion to right, with lateral flexion to left and with extension, cervical spasm bilateral lower: trapezius and paracervical muscles, cervical ROM abnormal lateral flexion to the right decreased and lateral flexion to the left decreased Thoracic/Lumbar Spine: thoracic and lumbar spine normal to inspection (L post rotation of pelvis), Lasegue's sign positive on the left, pain with thoraco- lumbar ROM with forward flexion, with lateral flexion to the right and with lateral flexion to the left, paraspinal tenderness on the left greater than right (lower lumbar, pelvis), thoraco-lumbar ROM limited with forward flexion and with lateral flexion to the left, thoraco-lumbar spasm bilaterally in the lower lumbar Sacroiliac joints: on the left Sacrum: tenderness on the right Neuro General: alert, awake, oriented x3, gait normal, normal light touch, pain and propioception, no focal motor deficits Ortho Test CERVICAL Compression pain: Negative Distraction pain: relief Mihir's pain: Negative Valsalvas: Negative Shoulder depression pain: Right (+bilaterally) THORACIC [place]: Negative LUMBAR Office Procedures Chiropractic Treatments Procedures Manipulation: 3-4 regions (C3,C6,T5, L2, L5, LIL) Assessment AND Plan 1. Back pain M54.9 2. Segmental and somatic dysfunction of pelvic region M99.05 Orders Orders: 3. Segmental and somatic dysfunction of thoracic region M99.02 Orders Orders: 4. Segmental and somatic dysfunction of lumbar region M99.03 Orders Orders: 5. Segmental and somatic dysfunction of cervical region M99.01 Plan Performed eval on cspine and began treatment. Plan Detail Goals Decrease pain Increase ROM Follow Up PRN Coding Level of Care Code Off vis,est,level 1 Diagnoses Back pain M54.9 Segmental and somatic dysfunction of pelvic region M99.05 Segmental and somatic dysfunction of thoracic region M99.02 Segmental and somatic dysfunction of lumbar region M99.03 Segmental and somatic dysfunction of cervical region M99.01 Additional Codes Procedures - Manipulation: 3-4 regions (23312) 03/06/18 1405 <Electronically signed by S[facility]ana [facility]> Date [facility] Cosigner Signature: Date (if applicable) CC: CHIROPRACTIC REPORT Observed: 02/09/2018 Status: F Source: DEXTER 1:41 PM [facility] [address] [place] [address] OFFICE VISIT Date of Service: 02/06/18 MR#: [id number] Acct: [id number] Name: MARLENJOANDEVON Katy Rep #: [id number] : 1960 Provider: [facility] Age/Sex: 57/F Location: [facility] [place] Status: Signed Intake Vital Signs02/06/18 Height 5 ft 3 in 02/06/18 Weight: 220 lb 02/06/18 Body Mass Index (BMI) 38.9 Intake Visit Reasons: Low back pain Chief Complaint: back pain Allergies aloe vera Allergy (Verified 05/25/14 19:31) Other doxycycline Allergy (Verified 05/25/14 19:31) Other hydrocodone bitartrate [From Vicodin] Allergy (Verified 05/25/14 19:31) Upset Stomach oxycodone HCl [From Percocet] Allergy (Verified 05/25/14 19:31) Other propoxyphene HCl [From Darvon] Allergy (Verified 05/25/14 19:31) Vomiting Medications Acetaminophen with Codeine [Tylenol with Codeine #4 Tablet] 1 ea PO Q6H PRN PRN 05/20/14 [History Confirmed 05/24/14] Albuterol Aerosols [Ventolin Aerosols] 2.5 mg INHALATION Q6H PRN PRN 05/20/14 [History Confirmed 05/24/14] Cyclobenzaprine [Flexeril] 10 mg PO TID PRN PRN 05/20/14 [History Confirmed 05/24/14] Esomeprazole Mag Trihydrate [Nexium] 40 mg PO BID 05/20/14 [History Confirmed 05/24/14] Gabapentin [Gralise] 300 mg PO QHS 05/20/14 [History Confirmed 05/24/14] Linaclotide [Linzess] 290 mcg PO DAILY 05/20/14 [History Confirmed 05/24/14] Lorazepam [Ativan] 1 mg PO Q6H PRN PRN 05/20/14 [History Confirmed 05/24/14] Rosuvastatin Calcium [Crestor] 10 mg PO QHS 05/20/14 [History Confirmed 05/24/14] Ciprofloxacin [Cipro] 500 mg PO BID #10 tab 05/25/14 [Rx] Fluconazole [Diflucan] 150 mg PO X1 #3 tab 05/25/14 [Rx] Oxycodone HCl/Acetaminophen [Percocet 5-325] 1 - 2 tab PO Q4H PRN PRN #30 tab 05/25/14 [Rx] esomeprazole magnesium 20 mg capsule,delayed release 20 mg PO QDAY 11/08/17 [History Confirmed 11/08/17] lactobacillus combination no.8 3 billion cell capsule 3,000 mmu cells PO QDAY 11/08/17 [History Confirmed 04/24/18] rosuvastatin 10 mg tablet 10 mg PO ONCE 11/08/17 [History Confirmed 11/08/17] [facility] Medical History Acute asthma (Acute) Arthritis (Acute) Carpal tunnel syndrome (Acute) Environmental allergies (Acute) GERD (gastroesophageal reflux disease) (Acute) High cholesterol (Acute) High triglycerides (Acute) History Valvular Surgery (Acute) History of cancer of vulva (Acute) Hx TIA/stroke w/o resid (Acute) Hx of colon cancer, stage I (Acute) IBS (irritable bowel syndrome) (Acute) Sleep apnea (Acute) Surgical History History of bladder surgery (Acute) History of breast surgery (Acute) History of cataract surgery (Acute) History of cornea transplant (Acute) History of partial hysterectomy (Acute) Family History Other Alcoholism Anxiety Arthritis Asthma Breast cancer Cervical cancer Colon cancer Depression Heart disease High cholesterol Suicidal behavior Social History Smoking Status: Current every day smoker tobacco type: cigarettes quit status: not considering quitting alcohol intake: never substance use type: does not use what type of physical activity do you participate in: none HPI Low back pain: Chief Complaint: low back pain Visit Number: 5 Details: DEVON BARAHONA is a 57 year old F who presents with decreased low back pain. Devon states that she recently has gotten new shoes causing decreased pain in the hips. Recently she has only experienced a dull ache in the hips and low back. Walking, bending, and lifting still cause an ache in the low back. Devon denies any numbness, tingling, or radiculopathy. Location: low back Duration: intermittent Aggravating or associated factors: bending, lifting, and prolonged walking Relieving factors: chiro Pain Quality: aching, dull, sharp Exam Musc General: Yes normal posture, normal gait, joint tenderness (T8, T9, L2, L3, L5, L>R SI jt.) and decreased ROM Thoracic/Lumbar Spine: thoracic and lumbar spine normal to inspection (L post rotation of pelvis), Lasegue's sign positive on the left, pain with thoraco- lumbar ROM with forward flexion, with lateral flexion to the right and with lateral flexion to the left, paraspinal tenderness on the left greater than right (lower lumbar, pelvis), thoraco-lumbar ROM limited with forward flexion and with lateral flexion to the left, thoraco-lumbar spasm bilaterally in the lower lumbar Sacroiliac joints: on the left Sacrum: tenderness on the right Office Procedures Chiropractic Treatments Procedures Manipulation: 1-2 regions (LIL, RIL) Assessment AND Plan 1. Segmental and somatic dysfunction of pelvic region M99.05 Orders Orders: Plan Detail Goals Decrease pain Increase ROM Follow Up PRN Coding Level of Care Code No Charge Diagnoses Segmental and somatic dysfunction of pelvic region M99.05 Additional Codes Procedures - Manipulation: 1-2 regions (39974) 02/09/18 1341 <Electronically signed by S[facility]> Date [facility] Cosigner Signature: Date (if applicable) CC: NUCLEAR STRESS Observed: 02/08/2018 Status: F Source: [facility] (CARD) 9:03 AM [facility] REPOSITORY NAME : DEVON BARAHONA PID : [id number] : 1960 Gender : Female Race : ORD : [id number] Procedure Date : Feb 08 2018 09:03:36 Edit Date : Feb 13 2018 12:41:11 Conclusions:PLEASE REFER TO IMAGING SECTION IN [facility] FOR COMPLETE INTERPRETATION OF STRESS TEST AND MYOCARDIAL PERFUSION IMAGING Protocol Name : LEXISCAN Time In Exercise Phase : 00:06:00 Max. Systolic BP : 129 mmHg Max Diastolic BP : 70 mmHg Max Heart Rate : 103 BPM Max Predicted Heart Rate : 162 BPM Recovery ECG Response (OLD) : Reason For Termination : End of Protocol Test Reason : Chest Pain Location :NSL Overread By : CHRISTINA ZAMUDIO D.O. Edited By : Shelby Bustamante Referred By : CHRISTINA ZAMUDIO Acquired by : QUINN SHELDON CARDIAC PERF Observed: 02/08/2018 Status: F Source: [facility] STRESS/PHARM 8:21 AM CLINIC OTHER CAMPUS REPOSITORY * * *Final Report* * * DATE OF EXAM: Feb 08 2018 8:21AM DELISA 0006 - NM CARDIAC PERF STRESS/PHARM / PROCEDURE REASON: multiple diagnoses * * * * Physician Interpretation * * * * PATIENT: Name: DEVON BARAHONA Age: 57 years Gender: F CONCLUSIONS: 1. SPECT Perfusion Study: Normal. 2. There is no scintigraphic evidence for inducible ischemia. 3. No evidence of scarred myocardium. 4. Functional capacity N/A (pharmacological). 5. Left ventricle is normal in size. The left ventricle systolic function is normal. 6. Right ventricle is normal in size. 7. This is a low risk scan. LVEF % 80 Prior Study Comparison No prior nuclear cardiology exam available for comparison. Nuclear Med Report:1-Day Tc-Tetrofosmin Gated SPECT Myocardial Perfusion with Regadenoson Stress: Myocardial perfusion imaging was performed at rest 30 minutes following the IV injection of Tc-99m tetrofosmin. The patient received 0.4 mg of regadenoson, via rapid IV push, immediately followed by Tc-99m tetrofosmin IV. Gated post stress tomographic imaging was performed 30 to 60 minutes later. See administered doses below. [facility] Date of service: 02/08/2018 8:21:45 AM Indication: CP - ECG uniterpretable OR unable to exercise. Interpreting physician: Christina Zamudio DO Patient History: History of family hx of premature CAD, smoker, hypertension and dyslipidemia. Medications currently taking are statins. Height: 160.02 cm BSA: 2.10 m? Weight: 99.34 kg BMI: 38.8 kg/m? Imaging Protocol Limitation Reason Breast attenuation. Primary Rhythm: Sinus. Secondary Rhythm: Sinus. Resting Heart Rate: 72 bpm Resting Blood Press: 111/83 mmHg Image Quality The overall study imaging quality was deemed to be fair. The following technical issues were noted: Breast attenuation. FINDINGS: LVEF: 80 % LEFT VENTRICLE The left ventricle is normal in size. Left ventricular systolic function is normal. Right Ventricle The right ventricle is normal in size. Stress Test Findings: There is no scintigraphic evidence for inducible ischemia. There is no evidence of scarring. The stress test was terminated due to the following: End of Protocol. Peak HR 101 bpm. (63 % MPHR) Peak BP 129 mmHg/70 mmHg Patient experienced shortness of breath during stress. Stress ECG normal ST segment response and normal sinus rhythm. Stress complications: none. Final Knockout Machine Operator: KATELIN Transcribe Date/Time: Feb 08 2018 8:21A Dictated by : CHRISTINA ZAMUDIO DO This examination was interpreted and the report reviewed and electronically signed by: CHRISTINA ZAMUDIO DO on Feb 08 2018 12:58PM EST [id number] PROGRESS Observed: 02/01/2018 Status: COMPLETED Source: [facility] 12:28 PM [facility] [place] REPOSITORY HNO ID: [id number] Author: Dayami Duggan Service: (none) Author Type: Physician Type: Progress Notes Filed: 02/01/2018 7:37 PM Note Text: Chief Complaint Patient presents with: Medication Follow-up HPI Devon Barahona is a 57 year old female who presents here today for a medication follow up. Here today for a follow up visit. Pt currently smoking 3 cigarettes per day, but hoping she will quit by winter due to having her hlbtra-ex-imr living with her and he requires oxygen. had been sick from June to December and no longer working due to COPD. COPD - Follows with Dr. Mendoza every 6 months but due to recent PFT they want her to f/u in 3-4 months. Saw ALL SOURCE ANALYST Ivet Medellin in December. States the Tudorza 400 mcg 1 inhalation twice daily does help, but recently feels more sob. Has had increased anxiety lately due to taking care of her aixolu-nl-qgs. Cardio - Follows with Dr. Olivarez every 6 months. Was scheduled for a Stress Test but had to cancel due to her aiwvms-vz-otr being d/c from TCU. Admits to sob and dizziness/off balance at times. Denies any chest pain. ALIYA/Insomnia - Uses CPAP nightly and finds it beneficial and no longer having apnea events. Doesn't get a full night of sleep and tosses and turns even with using Ambien 10 mg at bedtime. Takes Ambien at 9:30 and still laying there at 11. On average get 4.5-5 hours per night. Anxiety - Has a lot of anxiety and feels like little things just make symptoms worse. Currently taking Ativan 1 mg 1 tab po 2-3 times per day. Epigastric - Needs to see GI due to whatever she eats causing bloating even if its a small meal. She has a lot of bloating in epigastric area. She is using Nexium, Probiotic and has tried Lactose. Hip - Has to see chiropractor every 3 weeks to have put hip in and Orthopaedic states there is nothing wrong. She has difficulty at times ambulating around the store and feels like she is 90. She will have to stop and sit some where due to her hip issues. Is hopeful she can make [facility] due to all the issues going on at home. Past medical history, appointments, medications, allergies reviewed. Previous Medical History PAST MEDICAL HISTORY Diagnosis Date - Arthritis ribcage - Asthma - Bladder instability 03/17/2010 - COPD (chronic obstructive pulmonary disease) (HCC) - Esophagitis, unspecified - Family history of colon cancer 05/24/14 - Gastroesophageal reflux disease without esophagitis 01/29/2015 - GERD (gastroesophageal reflux disease) 03/17/2010 - Heme positive stool 05/24/14 - Nausea 05/24/14 - Obstructive sleep apnea - ALIYA (obstructive sleep apnea) 02/17/2011 - PMH - PAST MEDICAL HISTORY OF 1996 vulva cancer - Ulcer Previous Surgical History PAST SURGICAL HISTORY Procedure Laterality Date - BX OF BREAST; INCISIONAL Left 05/17/2017 - COLONOSCOPY 05/24/14 Repeat due 2016 - COLONOSCOPY 03/30/16 tubular adenoma, repeat in 3 years - DISCISSION,2ND CATARACT,LASER Right 10/14/2015 Yag Capsulotomy - EGD 05/24/14 - EGD [facility] SPEC[facility] W/BX 04/17/10 - EXCISION MALIGNANT LESIONS,VUL 1996 Dr. Rehman. No recent F/U. in vulvar region - HEART CATHETERIZATION 04/2011 normal no CAD - MAMMO MAMMOGRAM 2009 [facility] - PAST SURGICAL HISTORY OF age 22 partial hysterectomy for DUB - PAST SURGICAL HISTORY OF left breast-lump removal - PAST SURGICAL HISTORY OF needle biopsy-right breast - x 3 - PAST SURGICAL HISTORY OF 11/27/2014 keratoplasty OS DMEK - PAST SURGICAL HISTORY OF 02/18/15 keratoplasty OD DMEK - REMV CATARACT EXTRACAP,INSERT LENS 11/22/12 OD Cataract Extraction with PC IOL - REMV CATARACT EXTRACAP,INSERT LENS OS 12/26/13 Cataract Extraction with PC IOL - REPAIR OF NASAL SEPTUM 1980s Septoplasty - SLING OPER STRES INCONTINENCE 11/26/10, 04/2011 [facility] [place] [facility] Family History FAMILY HISTORY Problem Relation Age of Onset - Heart Mother chf at 89 - Alzheimer's Disease Mother - Cataract Mother - Blindness Sister - Cancer Sister lung cancer - Emphysema Sister - Psychiatry Brother - Strabismus Brother - Amblyopia Brother - Alcohol/Drug Sister - tuberculosis [OTHER] Sister - Diabetes Other Multiple both family members. Patient Allergies ALLERGIES Allergen Reactions - Aloe Vera Rash Causes bustillos/redness/blistering when applied topically. - Darvon [Propoxyphen* GI Upset, Vomiting - Doxycycline Other: See Comments Vaginal yeast infection. - Percocet [Oxycodone* Mental Status Change Visual hallucinations - Vicodin [Hydrocodon* GI Upset Current Medications Current Outpatient Prescriptions on File Prior to Visit: LORazepam (ATIVAN) 1 mg tablet Take 1 tablet by mouth every 6 hours as needed for up to 90 days. rosuvastatin (CRESTOR) 10 mg tablet Take 1 tablet by mouth daily at bedtime. COMPOUNDED PRESCRIPTION Assess CPAP unit settings, mask fit. Refill tubing, mask, filter, chin strap, supplies. ZOVIRAX 5 % crea APPLY TO THE AFFECTED AREA(S) FIVE TIMES DAILY. use for FOUR days with viral sores COMPOUNDED PRESCRIPTION Water pill with potassium, taking one daily lactobacillus comb no.10 (PROBIOTIC) 20 billion cell cap Take 1 capsule by mouth once daily. turmeric root extract 500 mg cap Take 1 capsule by mouth once daily. cholecalciferol, vitamin D3, 5,000 unit ODT Take 1 capsule by mouth once daily. aclidinium bromide (TUDORZA PRESSAIR) 400 mcg/actuation aepb Inhale 1 Inhalation as instructed twice daily. CPAP daily at bedtime. zolpidem (AMBIEN) 10 mg tab Take 1 tablet by mouth at bedtime as needed (insomnia) for up to 90 days. Hold to fill on 10/23/16 or after No current facility-administered medications on file prior to visit. Social History Social History Marital status: Spouse name: Years of education: Number of children: Social History Main Topics Smoking status: Current Every Day Smoker Packs/day: 0.50 Years: 35.00 Types: Cigarettes Start date: 03/13/1980 Smokeless tobacco: Never Used Comment: currently down to just a few cigarettes per day 1-2, 11/21/17 Alcohol use: No Drug use: No Social History Narrative Has decreased smoking significantly. Rolls own cigarettes. Previously quit cold turkey for 3 months. Hardest cigarette to give up: the morning one and after dinner. I love those. Trying to quit in conjunction with . EXAM: BP 118/84 (BP Site: Left Arm, BP Position: Sitting, BP Cuff Size: Regular Adult) Pulse 72 Resp 16 Wt 99.7 kg (219 lb 12.8 oz) BMI 38.94 kg/m? General Appearance: Well appearing, alert, in no acute distress, well-hydrated, well nourished. and Obese. Lungs: Lungs clear to auscultation. No wheezing, rhonchi, rales. Heart: RRR without murmur, gallop, or rubs. No ectopy. Health Maintenance List INFLUENZA(1) due on 03/18/2018 MAMMOGRAM due on 04/29/2018 DIABETES SCREEN due on 09/01/2020 LIPID SCREEN due on 09/01/2022 DTAP,TDAP,TD(2 - Tdap) due on 04/21/2024 ONE PNEUMOVAX PRIOR TO AGE 65 Completed HEPATITIS C SCREENING Completed Data reviewed None ASSESSMENT/PLAN: 1. Anxiety - ICD9: 300.00, ICD10: F41.9 (primary diagnosis) - Continue current medication regimen. - LORAZEPAM 1 MG TABLET 2. ALIYA (obstructive sleep apnea) - ICD9: 327.23, ICD10: G47.33 - Continue current medication regimen. 3. Insomnia, unspecified type - ICD9: 780.52, ICD10: G47.00 - Continue current medication regimen. - ZOLPIDEM 10 MG TABLET 4. Chronic obstructive pulmonary disease, unspecified COPD type (HCC) - ICD9: 496, ICD10: J44.9 - Continue current medication regimen. 5. DDD (degenerative disc disease), lumbar - ICD9: 722.52, ICD10: M51.36 Sciatica - [facility] 6. Gastroesophageal reflux disease without esophagitis - ICD9: 530.81, ICD10: K21.9 - Continue current medication regimen. - Consult to GI 7. Epigastric pain - ICD9: 789.06, ICD10: R10.13 - Referral to Gastroenterology 8. Bloating - ICD9: 787.3, ICD10: R14.0 - Consult to GI 3 mo f/u Dayami Duggan MD The documentation for this note was completed by Mitzi Avalos Ma acting as scribe for Dayami Duggan MD. February 01, 2018 12:28 PM. CNOV Observed: 02/01/2018 Status: COMPLETED Source: [facility] 12:20 PM [facility] REPOSITORY Office Visit (FAMPWS) DEVON BARAHONA ([id number]) 1960 F Date Time Provider Department 02/01/18 12:20 PM DAYAMI DUGGAN [facility] During your visit today, we recorded the following information about you: Pulse Respiration Blood pressure Weight 72/minute 16/minute 118/84 99.7 kg Dayami Duggan MD 02/01/2018 7:37 PM Signed Chief Complaint Patient presents with: Medication Follow-up HPI Devon Barahona is a 57 year old female who presents here today for a medication follow up. Here today for a follow up visit. Pt currently smoking 3 cigarettes per day, but hoping she will quit by winter due to having her seyrjw-kw-jzq living with her and he requires oxygen. had been sick from June to December and no longer working due to COPD. COPD - Follows with Dr. Mendoza every 6 months but due to recent PFT they want her to f/u in 3-4 months. Saw ALL SOURCE ANALYST Ivet Medellin in December. States the Tudorza 400 mcg 1 inhalation twice daily does help, but recently feels more sob. Has had increased anxiety lately due to taking care of her zeouiq-lo-pub. Cardio - Follows with Dr. Olivarez every 6 months. Was scheduled for a Stress Test but had to cancel due to her wtlnsw-ox-hsy being d/c from TCU. Admits to sob and dizziness/off balance at times. Denies any chest pain. ALIYA/Insomnia - Uses CPAP nightly and finds it beneficial and no longer having apnea events. Doesn't get a full night of sleep and tosses and turns even with using Ambien 10 mg at bedtime. Takes Ambien at 9:30 and still laying there at 11. On average get 4.5-5 hours per night. Anxiety - Has a lot of anxiety and feels like little things just make symptoms worse. Currently taking Ativan 1 mg 1 tab po 2-3 times per day. Epigastric - Needs to see GI due to whatever she eats causing bloating even if its a small meal. She has a lot of bloating in epigastric area. She is using Nexium, Probiotic and has tried Lactose. Hip - Has to see chiropractor every 3 weeks to have put hip in and Orthopaedic states there is nothing wrong. She has difficulty at times ambulating around the store and feels like she is 90. She will have to stop and sit some where due to her hip issues. Is hopeful she can make it to [facility] due to all the issues going on at home. Past medical history, appointments, medications, allergies reviewed. Previous Medical History PAST MEDICAL HISTORY Diagnosis Date - Arthritis ribcage - Asthma - Bladder instability 03/17/2010 - COPD (chronic obstructive pulmonary disease) (HCC) - Esophagitis, unspecified - Family history of colon cancer 05/24/14 - Gastroesophageal reflux disease without esophagitis 01/29/2015 - GERD (gastroesophageal reflux disease) 03/17/2010 - Heme positive stool 05/24/14 - Nausea 05/24/14 - Obstructive sleep apnea - ALIYA (obstructive sleep apnea) 02/17/2011 - PMH - PAST MEDICAL HISTORY OF 1997 vulva cancer - Ulcer Previous Surgical History PAST SURGICAL HISTORY Procedure Laterality Date - BX OF BREAST; INCISIONAL Left 05/17/2017 - COLONOSCOPY 05/24/14 Repeat due 2016 - COLONOSCOPY 03/30/16 tubular adenoma, repeat in 3 years - DISCISSION,2ND CATARACT,LASER Right 10/14/2015 Yag Capsulotomy - EGD 05/24/14 - EGD [facility] SPEC[facility] W/BX 04/17/10 - EXCISION MALIGNANT LESIONS,VUL 1996 Dr. Rehman. No recent F/U. in vulvar region - HEART CATHETERIZATION 04/2011 normal no CAD - MAMMO MAMMOGRAM 2009 [facility] - PAST SURGICAL HISTORY OF age 22 partial hysterectomy for DUB - PAST SURGICAL HISTORY OF left breast-lump removal - PAST SURGICAL HISTORY OF needle biopsy-right breast - x 3 - PAST SURGICAL HISTORY OF 11/27/2014 keratoplasty OS DMEK - PAST SURGICAL HISTORY OF 02/18/15 keratoplasty OD DMEK - REMV CATARACT EXTRACAP,INSERT LENS 11/22/12 OD Cataract Extraction with PC IOL - REMV CATARACT EXTRACAP,INSERT LENS OS 12/26/13 Cataract Extraction with PC IOL - REPAIR OF NASAL SEPTUM 1980s Septoplasty - SLING OPER STRES INCONTINENCE 11/26/10, 04/2011 [facility] [place] surgery Family History FAMILY HISTORY Problem Relation Age of Onset - Heart Mother chf at 89 - Alzheimer's Disease Mother - Cataract Mother - Blindness Sister - Cancer Sister lung cancer - Emphysema Sister - Psychiatry Brother - Strabismus Brother - Amblyopia Brother - Alcohol/Drug Sister - tuberculosis [OTHER] Sister - Diabetes Other Multiple both family members. Patient Allergies ALLERGIES Allergen Reactions - Aloe Vera Rash Causes bustillos/redness/blistering when applied topically. - Darvon [Propoxyphen* GI Upset, Vomiting - Doxycycline Other: See Comments Vaginal yeast infection. - Percocet [Oxycodone* Mental Status Change Visual hallucinations - Vicodin [Hydrocodon* GI Upset Current Medications Current Outpatient Prescriptions on File Prior to Visit: LORazepam (ATIVAN) 1 mg tablet Take 1 tablet by mouth every 6 hours as needed for up to 90 days. rosuvastatin (CRESTOR) 10 mg tablet Take 1 tablet by mouth daily at bedtime. COMPOUNDED PRESCRIPTION Assess CPAP unit settings, mask fit. Refill tubing, mask, filter, chin strap, supplies. ZOVIRAX 5 % crea APPLY TO THE AFFECTED AREA(S) FIVE TIMES DAILY. use for FOUR days with viral sores COMPOUNDED PRESCRIPTION Water pill with potassium, taking one daily lactobacillus comb no.10 (PROBIOTIC) 20 billion cell cap Take 1 capsule by mouth once daily. turmeric root extract 500 mg cap Take 1 capsule by mouth once daily. cholecalciferol, vitamin D3, 5,000 unit ODT Take 1 capsule by mouth once daily. aclidinium bromide (TUDORZA PRESSAIR) 400 mcg/actuation aepb Inhale 1 Inhalation as instructed twice daily. CPAP daily at bedtime. zolpidem (AMBIEN) 10 mg tab Take 1 tablet by mouth at bedtime as needed (insomnia) for up to 90 days. Hold to fill on 10/23/16 or after No current facility-administered medications on file prior to visit. Social History Social History Marital status: Spouse name: Years of education: Number of children: Social History Main Topics Smoking status: Current Every Day Smoker Packs/day: 0.50 Years: 35.00 Types: Cigarettes Start date: 03/13/1980 Smokeless tobacco: Never Used Comment: currently down to just a few cigarettes per day 1-2, 11/21/17 Alcohol use: No Drug use: No Social History Narrative Has decreased smoking significantly. Rolls own cigarettes. Previously quit cold turkey for 3 months. Hardest cigarette to give up: the morning one and after dinner. I love those. Trying to quit in conjunction with . EXAM: BP 118/84 (BP Site: Left Arm, BP Position: Sitting, BP Cuff Size: Regular Adult) Pulse 72 Resp 16 Wt 99.7 kg (219 lb 12.8 oz) BMI 38.94 kg/m? General Appearance: Well appearing, alert, in no acute distress, well-hydrated, well nourished. and Obese. Lungs: Lungs clear to auscultation. No wheezing, rhonchi, rales. Heart: RRR without murmur, gallop, or rubs. No ectopy. Health Maintenance List INFLUENZA(1) due on 03/18/2018 MAMMOGRAM due on 04/29/2018 DIABETES SCREEN due on 09/01/2020 LIPID SCREEN due on 09/01/2022 DTAP,TDAP,TD(2 - Tdap) due on 04/21/2024 ONE PNEUMOVAX PRIOR TO AGE 64 Completed HEPATITIS C SCREENING Completed Data reviewed None ASSESSMENT/PLAN: 1. Anxiety - ICD9: 300.00, ICD10: F41.9 (primary diagnosis) - Continue current medication regimen. - LORAZEPAM 1 MG TABLET 2. ALIYA (obstructive sleep apnea) - ICD9: 327.23, ICD10: G47.33 - Continue current medication regimen. 3. Insomnia, unspecified type - ICD9: 780.52, ICD10: G47.00 - Continue current medication regimen. - ZOLPIDEM 10 MG TABLET 4. Chronic obstructive pulmonary disease, unspecified COPD type (HCC) - ICD9: 496, ICD10: J44.9 - Continue current medication regimen. 5. DDD (degenerative disc disease), lumbar - ICD9: 722.52, ICD10: M51.36 Sciatica - [facility] 6. Gastroesophageal reflux disease without esophagitis - ICD9: 530.81, ICD10: K21.9 - Continue current medication regimen. - Consult to GI 7. Epigastric pain - ICD9: 789.06, ICD10: R10.13 - Referral to Gastroenterology 8. Bloating - ICD9: 787.3, ICD10: R14.0 - Consult to GI 3 mo f/u Dayami Duggan MD The documentation for this note was completed by Mitzi Avalos Ma acting as scribe for Dayami Duggan MD. February 01, 2018 12:28 PM. Referring Provider: DAYAMI DUGGAN [[id number]] Allergies As of Date: 02/01/2018 Noted Allergy Reaction ALOE VERA 03/26/2010 2 - Rash Comments: Causes bustillos/redness/blistering when applied topically. DARVON (PROPOXYPHENE HCL) 03/17/2010 8 - GI Upset 11 - Vomiting DOXYCYCLINE 09/08/2012 14 - Other: See Comments Comments: Vaginal yeast infection. PERCOCET (OXYCODONE-ACETAMINOPHEN)03/17/2010 1 - Mental Status Change Comments: Visual hallucinations VICODIN (HYDROCODONE-ACETAMINOPHE*03/17/2010 8 - GI Upset Date Reviewed: 01/11/2018 Reviewed by: Joanna Chaparro Ma - Fully Assessed Reason for Visit: Medication Follow-up [270] Primary Visit Diagnosis:Anxiety [F41.9] Other Visit Diagnoses:ALIYA (obstructive sleep apnea) [G47.33] Insomnia, unspecified type [G47.00] Chronic obstructive pulmonary disease, unspecified COPD type (HCC) [J44.9] DDD (degenerative disc disease), lumbar [M51.36] Gastroesophageal reflux disease without esophagitis [K21.9] Epigastric pain [R10.13] Bloating [R14.0] Order(s):zolpidem (AMBIEN) 10 mg tabTake 1 tablet by mouth at bedtime as needed (insomnia) for up to 90 days. Hold to fill on 10/23/16 or afterDisp: 90 tabletRfl: 0 LORazepam (ATIVAN) 1 mg tabletTake 1 tablet by mouth every 6 hours as needed for up to 90 days.Disp: 360 tabletRfl: 0 CONSULT TO GASTROENTEROLOGY [[id number]] Order #: [id number]: 1 Prescriptions as of 02/01/2018 Sig: LORAZEPAM 1 MG TABLET Take 1 tablet by mouth every * ROSUVASTATIN 10 MG TABLET Take 1 tablet by mouth daily * COMPOUNDED PRESCRIPTION Assess CPAP unit settings, ma* ZOVIRAX 5 % TOPICAL CREAM APPLY TO THE AFFECTED AREA(S)* COMPOUNDED PRESCRIPTION Water pill with potassium, ta* LACTOBACILLUS COMBINATION NO.* Take 1 capsule by mouth once * TURMERIC ROOT EXTRACT 500 MG * Take 1 capsule by mouth once * CHOLECALCIFEROL (VITAMIN D3) * Take 1 capsule by mouth once * ACLIDINIUM BROMIDE 400 MCG/AC* Inhale 1 Inhalation as instru* CPAP daily at bedtime. ZOLPIDEM 10 MG TABLET Take 1 tablet by mouth at bed* Problem List As Of Date 02/01/2018 Noted Resolved Arthritis [M19.90] INVALID FOR* Back pain [M54.9] INVALID FOR*03/23/2016 More... Bladder instability [N32.89] INVALID FOR*03/20/2014 Asthma [J45.909] INVALID FOR*06/06/2012 Acute gastritis without mention of hemorrhage [*INVALID FOR*05/04/2012 ALIYA (obstructive sleep apnea) [G47.33] INVALID FOR* More... COPD (chronic obstructive pulmonary disease) [J*INVALID FOR* Other and unspecified hyperlipidemia [E78.5] INVALID FOR* Lumbar strain [S39.012A] INVALID FOR*05/04/2012 Lumbar spondylosis [M47.816] INVALID FOR*05/04/2012 Lumbar radiculopathy [M54.16] INVALID FOR*05/04/2012 Lumbar disc displacement without myelopathy [M5*INVALID FOR*05/04/2012 Low back pain [M54.5] INVALID FOR*03/23/2016 DDD (degenerative disc disease), lumbar [M51.36]INVALID FOR* Globus syndrome [F45.8] INVALID FOR*03/20/2014 Rhinitis [J31.0] INVALID FOR*05/04/2012 Laryngitis [J04.0] INVALID FOR*05/04/2012 Anxiety [F41.9] INVALID FOR* Scars [L90.5] INVALID FOR*05/04/2012 Hirsutism [L68.0] INVALID FOR*05/04/2012 Emphysema [J43.9] INVALID FOR* Back pain, chronic [M54.9, G89.29] INVALID FOR* Scalp lesion [L98.9] INVALID FOR*03/20/2014 Vulvar itching [L29.2] INVALID FOR*03/20/2014 Lens replaced by other means [Z96.1] INVALID FOR*03/23/2016 Insomnia [G47.00] INVALID FOR* Irritable bowel [K58.9] INVALID FOR* Mucopurulent chronic bronchitis (HCC) [J41.1] INVALID FOR* Gastroesophageal reflux disease without esophag*INVALID FOR* Cornea replaced by transplant [Z94.7] INVALID FOR*03/23/2016 Chronic pain of right knee [M25.561, G89.29] INVALID FOR* After-cataract obscuring vision, left [H26.492] INVALID FOR* Pseudophakia of both eyes [Z96.1] INVALID FOR* History of Descemet membrane endothelial kerato*INVALID FOR* More... Prescriptions ordered this encounter Disp Refills Start End ZOLPIDEM 10 MG TABLET 90 t* 0 02/01/2018 05/02/2018 Class: Print RX Route: ORAL Sig: Take 1 tablet by mouth at bedtime as needed (insomnia) for up to 90 days. Hold to fill on 10/23/16 or after LORAZEPAM 1 MG TABLET 360 * 0 02/01/2018 05/02/2018 Class: Print RX Route: ORAL Sig: Take 1 tablet by mouth every 6 hours as needed for up to 90 days. Medications Discontinued During This Encounter multivitamin tablet 02/01/2018 Class: Historical Med Route: ORAL Sig: Take 1 tablet by mouth once daily. Disc: Course of therapy completed albuterol sulfate 90 mcg/actuation a* 1 In* 5 04/29/2017 02/01/2018 Route: INHALATION Sig: Inhale 2 Puffs as instructed every 6 hours as needed (wheezing or shortness of breath). Disc: Course of therapy completed zolpidem (AMBIEN) 10 mg tab 90 t* 0 11/28/2017 02/01/2018 Class: Call Rx Route: ORAL Sig: Take 1 tablet by mouth at bedtime as needed (insomnia) for up to 90 days. Hold to fill on 10/23/16 or after Disc: Reason for discontinue is not on file. LORazepam (ATIVAN) 1 mg tablet 360 * 0 11/28/2017 02/01/2018 Class: Call Rx Route: ORAL Sig: Take 1 tablet by mouth every 6 hours as needed for up to 90 days. Disc: Reason for discontinue is not on file. Disposition: Return in about 3 months (around 05/04/2018). Follow-up and Disposition History Recorded Encounter Status:Closed by DAYAMI DUGGAN MD on 02/01/18 CHIROPRACTIC REPORT Observed: 01/23/2018 Status: F Source: DEXTER 9:42 AM [facility] [address] [place] [address] OFFICE VISIT Date of Service: 01/17/18 MR#: [id number] Acct: [id number] Name: DEVON BARAHONA Rep #: [id number] : 1960 Provider: [facility] D.C. Age/Sex: 57/F Location: [facility] Status: Signed Intake Vital Signs01/17/18 Height 5 ft 3 in 01/17/18 Weight: 220 lb 01/17/18 Body Mass Index (BMI) 38.9 Intake Visit Reasons: back pain Chief Complaint: back pain Accompanied by: Is patient in pain?: Yes Allergies aloe vera Allergy (Verified 05/25/14 19:31) Other doxycycline Allergy (Verified 05/25/14 19:31) Other hydrocodone bitartrate [From Vicodin] Allergy (Verified 05/25/14 19:31) Upset Stomach oxycodone HCl [From Percocet] Allergy (Verified 05/25/14 19:31) Other propoxyphene HCl [From Darvon] Allergy (Verified 05/25/14 19:31) Vomiting Medications Acetaminophen with Codeine [Tylenol with Codeine #4 Tablet] 1 ea PO Q6H PRN PRN 05/20/14 [History Confirmed 05/24/14] Albuterol Aerosols [Ventolin Aerosols] 2.5 mg INHALATION Q6H PRN PRN 05/20/14 [History Confirmed 05/24/14] Cyclobenzaprine [Flexeril] 10 mg PO TID PRN PRN 05/20/14 [History Confirmed 05/24/14] Esomeprazole Mag Trihydrate [Nexium] 40 mg PO BID 05/20/14 [History Confirmed 05/24/14] Gabapentin [Gralise] 300 mg PO QHS 05/20/14 [History Confirmed 05/24/14] Linaclotide [Linzess] 290 mcg PO DAILY 05/20/14 [History Confirmed 05/24/14] Lorazepam [Ativan] 1 mg PO Q6H PRN PRN 05/20/14 [History Confirmed 05/24/14] Rosuvastatin Calcium [Crestor] 10 mg PO QHS 05/20/14 [History Confirmed 05/24/14] Ciprofloxacin [Cipro] 500 mg PO BID #10 tab 05/25/14 [Rx] Fluconazole [Diflucan] 150 mg PO X1 #3 tab 05/25/14 [Rx] Oxycodone HCl/Acetaminophen [Percocet 5-325] 1 - 2 tab PO Q4H PRN PRN #30 tab 05/25/14 [Rx] esomeprazole magnesium 20 mg capsule,delayed release 20 mg PO QDAY 11/08/17 [History Confirmed 11/08/17] lactobacillus combination no.8 3 billion cell capsule 3,000 mmu cells PO QDAY 11/08/17 [History Confirmed 11/08/17] rosuvastatin 10 mg tablet 10 mg PO ONCE 11/08/17 [History Confirmed 11/08/17] [facility] Medical History Acute asthma (Acute) Arthritis (Acute) Carpal tunnel syndrome (Acute) Environmental allergies (Acute) GERD (gastroesophageal reflux disease) (Acute) High cholesterol (Acute) High triglycerides (Acute) History Valvular Surgery (Acute) History of cancer of vulva (Acute) Hx TIA/stroke w/o resid (Acute) Hx of colon cancer, stage I (Acute) IBS (irritable bowel syndrome) (Acute) Sleep apnea (Acute) Surgical History History of bladder surgery (Acute) History of breast surgery (Acute) History of cataract surgery (Acute) History of cornea transplant (Acute) History of partial hysterectomy (Acute) Family History Other Alcoholism Anxiety Arthritis Asthma Breast cancer Cervical cancer Colon cancer Depression Heart disease High cholesterol Suicidal behavior Social History Smoking Status: Current every day smoker tobacco type: cigarettes quit status: not considering quitting alcohol intake: never substance use type: does not use what type of physical activity do you participate in: none HPI back pain : Chief Complaint: back pain Visit Number: 5 Details: DEVON BARAHONA is a 57 year old F who presents with low back pain. She states that at the start of the week her hips felt as if they were out. Today the patient describes her pain as a tight and sharp pain in both hips that does radiate across the back. Walking, bending, lifting and twisting all cause increased pain. Devon denies any numbness, tingling, or radiculopathy. Onset: 01/16/18 Location: low back Duration: constant Aggravating or associated factors: bending, twisting, and lifting Relieving factors: chiro Pain Quality: aching, dull, sharp Exam Musc General: Yes normal posture, normal gait, joint tenderness (T8, T9, L2, L3, L5, L>R SI jt.) and decreased ROM Thoracic/Lumbar Spine: thoracic and lumbar spine normal to inspection, Lasegue's sign positive on the right, pain with thoraco-lumbar ROM with forward flexion, with lateral flexion to the right and with lateral flexion to the left, paraspinal tenderness on the left greater than right (lower lumbar, pelvis), thoraco-lumbar ROM limited with forward flexion and with lateral flexion to the left, thoraco-lumbar spasm bilaterally in the lower lumbar Sacroiliac joints: on the left Sacrum: tenderness on the right Office Procedures Chiropractic Treatments Procedures Manipulation: 1-2 regions (RIL, LIL) Assessment AND Plan 1. Segmental and somatic dysfunction of pelvic region M99.05 Orders Orders: Plan Detail Other Orders Orders: Goals Decrease pain Increase ROM Follow Up PRN Coding Level of Care Code No Charge Diagnoses Segmental and somatic dysfunction of pelvic region M99.05 Additional Codes Procedures - Manipulation: 1-2 regions (32270) 01/23/18 0942 <Electronically signed by [facility]ana [facility] D.C.> Date [facility] Cosigner Signature: Date (if applicable) CC: PROGRESS Observed: 01/11/2018 Status: COMPLETED Source: [place]INARD 2:10 PM [facility] REPOSITORY HNO ID: [id number] Author: Christina Zamudio Service: (none) Author Type: Physician Type: Progress Notes Filed: 01/11/2018 4:17 PM Note Text: ALEXANDER: 02/16/17 Devon Barahona is a 56 year old female here today for follow up regarding dizziness, dyspnea on exertion, hyperlipidemia, and palpitations with family history of premature coronary atherosclerosis, as well as atypical chest heaviness. Her symptoms fortunately have resolved and her cardiac testing was unremarkable in the past.. She unfortunately continues to smoke. She is not on a regular exercise program. Patient denies lower extremity edema, PND, orthopnea, presyncope, syncope or claudication symptoms. Prior history: We sent her for cardiac cath 04/22/11 after abnormal spect stress test and this did not show any epicardial coronary stenosis but LVEDP was elevated at 20. She has been doing better since last seen. I had asked her to quit smoking and start and exercise program last visit in May 2012 however she has been unable to do either. She currently smokes at least 12 row your own cigarettes a day. She has been on adjusted CPAP but notes she wakes with headaches and continues to have hypersomnolence. She started using quell shock treatment for severe back pain and states she no longer needs pain medicine or a cane. She had been having shortness of breath and could barely make it up 1 flight of stairs without stopping due to dyspnea. She had been having dizziness when walking or after standing from a sitting position. She had a new inhaler started. She has a history of COPD and sleep apnea on CPAP pending repeat polysomnogram in the near future. She has symptoms of palpitations with sensation of heart racing often occurring when laying down or resting 2 times a month. cardiac risk factors: age, postmenopausal female , HTN, obesity, sedentary life style, tobacco abuse and family history of heart disease. . Cardiac Interventions? None PAST MEDICAL HISTORY Diagnosis Date - Arthritis ribcage - Asthma - Bladder instability 03/17/2010 - COPD (chronic obstructive pulmonary disease) (HCC) - Esophagitis, unspecified - Family history of colon cancer 05/24/14 - Gastroesophageal reflux disease without esophagitis 01/29/2015 - GERD (gastroesophageal reflux disease) 03/17/2010 - Heme positive stool 05/24/14 - Nausea 05/24/14 - Obstructive sleep apnea - ALIYA (obstructive sleep apnea) 02/17/2011 - PMH - PAST MEDICAL HISTORY OF 1996 vulva cancer - Ulcer PAST SURGICAL HISTORY Procedure Laterality Date - BX OF BREAST; INCISIONAL Left 05/17/2017 - COLONOSCOPY 05/24/14 Repeat due 2016 - COLONOSCOPY 03/30/16 tubular adenoma, repeat in 3 years - DISCISSION,2ND CATARACT,LASER Right 10/14/2015 Yag Capsulotomy - EGD 05/24/14 - EGD [facility] SPECIMEN W/BX 04/17/10 - EXCISION MALIGNANT LESIONS,VUL 1996 Dr. Rehman. No recent F/U. in vulvar region - HEART CATHETERIZATION 04/2011 normal no CAD - MAMMO MAMMOGRAM 2009 [facility] - PAST SURGICAL HISTORY OF age 22 partial hysterectomy for DUB - PAST SURGICAL HISTORY OF left breast-lump removal - PAST SURGICAL HISTORY OF needle biopsy-right breast - x 3 - PAST SURGICAL HISTORY OF 11/27/2014 keratoplasty OS DMEK - PAST SURGICAL HISTORY OF 02/18/15 keratoplasty OD DMEK - REMV CATARACT EXTRACAP,INSERT LENS 11/22/12 OD Cataract Extraction with PC IOL - REMV CATARACT EXTRACAP,INSERT LENS OS 12/26/13 Cataract Extraction with PC IOL - REPAIR OF NASAL SEPTUM 1980s Septoplasty - SLING OPER STRES INCONTINENCE 11/26/10, 04/2011 [facility] main campus surgery FAMILY HISTORY Problem Relation Age of Onset - Heart Mother chf at 89 - Alzheimer's Disease Mother - Cataract Mother - Blindness Sister - Cancer Sister lung cancer - Emphysema Sister - Psychiatry Brother - Strabismus Brother - Amblyopia Brother - Alcohol/Drug Sister - tuberculosis [OTHER] Sister - Diabetes Other Multiple both family members. SOCIAL HISTORY Tobacco Use: .3 packs/day Types: Cigarettes (4 cigarettes per day) Alcohol Use: No ALLERGIES: Darvon, Vicodin, Percocet, Aloe Vera CURRENT MEDICATIONS: Current Outpatient Prescriptions: zolpidem (AMBIEN) 10 mg tab Take 1 tablet by mouth at bedtime as needed (insomnia) for up to 90 days. Hold to fill on 10/23/16 or after LORazepam (ATIVAN) 1 mg tablet Take 1 tablet by mouth every 6 hours as needed for up to 90 days. rosuvastatin (CRESTOR) 10 mg tablet Take 1 tablet by mouth daily at bedtime. COMPOUNDED PRESCRIPTION Assess CPAP unit settings, mask fit. Refill tubing, mask, filter, chin strap, supplies. ZOVIRAX 5 % crea APPLY TO THE AFFECTED AREA(S) FIVE TIMES DAILY. use for FOUR days with viral sores COMPOUNDED PRESCRIPTION Water pill with potassium, taking one daily turmeric root extract 500 mg cap Take 1 capsule by mouth once daily. aclidinium bromide (TUDORZA PRESSAIR) 400 mcg/actuation aepb Inhale 1 Inhalation as instructed twice daily. CPAP daily at bedtime. multivitamin tablet Take 1 tablet by mouth once daily. albuterol sulfate 90 mcg/actuation aepb Inhale 2 Puffs as instructed every 6 hours as needed (wheezing or shortness of breath). lactobacillus comb no.10 (PROBIOTIC) 20 billion cell cap Take 1 capsule by mouth once daily. cholecalciferol, vitamin D3, 5,000 unit ODT Take 1 capsule by mouth once daily. No current facility-administered medications for this visit. ROS: Card: See present history. Pulm:Negative for cough, wheezing or shortness of breath. Gastro:Negative for abdominal discomfort, blood in stools or black stools or change in bowel habits GenUr:SEE HPI Endo: Negative for cold or heat intolerance, polyuria or polydipsia. Neuro:no focal weakness, focal sensory loss, headache, visual changes, seizure activity, ataxia, speech/language loss. MusculoskeletalNegative for joint pain or swelling, back pain or muscle pain. Infect:no fevers, chills, rigors or night sweats. Skin: Negative for lesions, rash, and itching. Heme: Negative for prolonged bleeding, bruising easily or swollen nodes. The remainder of the review of systems is negative. PHYSICAL EXAMINATION: GENERAL: alert, cooperative, pleasant, oriented x 3 (self, time and place), in no acute distress BP 110/70 (BP Site: Left Arm, BP Position: Sitting, BP Cuff Size: Regular Adult) Pulse 86 Ht 160 cm (5' 3) Wt 101.1 kg (222 lb 12.8 oz) SpO2 95% BMI 39.47 kg/m? Last 3 Encounter BP Readings: Date: BP: 04/15/2011 126/99 02/17/2011 112/68 12/17/2010 100/60 Last 3 Encounter Pulse Readings: Date: Pulse: 04/15/2011 88 02/17/2011 86 12/17/2010 88 Last 3 Encounter Wt Readings: Date: Wt: 04/15/2011 87.227 kg (192 lb 4.8 oz) 04/08/2011 86.365 kg (190 lb 6.4 oz) 04/06/2011 86.183 kg (190 lb) SKIN: warm, dry, no rash. NECK: supple, no palpable masses, no JVD, carotids well felt, no bruits. CARDIAC: Perrin palpable in the 5th intercostal space mid clavicular line, normal S1 and S2, no murmurs, gallops, or rubs. CHEST: Normal respiratory efforts, lungs clear to auscultation bilaterally. ABDOMEN: Soft, no tenderness, rigidity, or masses. No palpable liver or spleen. Normal bowel sounds, no bruits. NEURO: intact cranial nerves, no motor or sensory deficits. EXTREMITIES: No cyanosis, clubbing, or edema. Peripheral pulses well felt. CARDIAC (AND OTHER IMPORTANT) TESTING: Previous Cardiac Testing: Echo 04/25/15: Normal LVEF 60%, mild RVE,mild RV hypo, RVSP 46mmHg,mild TR, trivial MR ECHO 06/15/[address] Fernandez in [place]: CONCLUSIONS: - Technically difficult exam due to body habitus and suboptimal positioning. - Exam indication: Shortness of Breath - The left ventricle is normal in size. Left ventricular systolic function is hyperdynamic. EF = 75 ? 5% (visual est.) Definity contrast used for endocardial border detection. Baseline left ventricular diastolic function is consistent with abnormal relaxation (stage 1). - The right ventricle is normal in size. Right ventricular systolic function is normal. - Estimated right ventricular systolic pressure is not reported due to an insufficient tricuspid regurgitation signal. There is no evidence for pulmonary hypertension. - Apical views are technically limited, despite the use of Definity. - LV function appears hyperdynamic. - There are no gross valvular abnormalities. - Prior [place] echo of 04/25/15 is similar. Regadenoson SPECT MPI (today) moderate size, mild intensity defect in mid to distal anterior wall c/w ischemia (LAD/Dx). CATH 04/22/11, nl coronaries, increase LVEDP 20 Cholesterol (mg/dL) Date Date Value Low High Status 05/26/2011 291* 100 199 Final HDL Cholesterol (mg/dL) Date Date Value Low High Status 05/26/2011 54* >55 Final LDL Chol, Gopal (mg/dL) Date Date Value Low High Status 08/04/2011 82 0 129 Final LDL Cholesterol (mg/dL) Date Date Value Low High Status 05/26/2011 204* 60 129 Final Triglyceride (mg/dL) Date Date Value Low High Status 05/26/2011 164* 30 149 Final LABS:TCHOL 291, TG 164, HDL 54, LDL 204 TC:HDL 5.39 No results found for this basename: chol:3, hdl:3, ldl:3, t AST (U/L) Date Value 03/25/2010 18 ALT (U/L) Date Value 03/25/2010 22 CK (U/L) Date Value 11/13/2010 67 No results found for this basename: inr:3 No results found for this basename: tsh B Natriuretic Peptid (pg/ml) Date Value 11/13/2010 14 No results found for this basename: pbnp Hemoglobin (g/dL) Date Value 11/23/2010 16.3* Hematocrit (%) Date Value 11/23/2010 47.2* WBC (k/uL) Date Value 11/23/2010 16.19* Platelet Count (k/uL) Date Value 11/23/2010 379 Glucose (mg/dL) Date Value 11/23/2010 119* Potassium (mmol/L) Date Value 11/23/2010 4.3 Sodium (mmol/L) Date Value 11/23/2010 137 Chloride (mmol/L) Date Value 11/23/2010 101 CO2 (mmol/L) Date Value 11/23/2010 21* Creatinine (mg/dL) Date Value 11/23/2010 0.77 BUN (mg/dL) Date Value 11/23/2010 15 Anion Gap (mmol/L) Date Value 11/23/2010 15 Calcium (mg/dL) Date Value 11/23/2010 10.7* _ ALT (U/L) Date Date Value Low High Status 03/25/2010 22 0 45 Final AST (U/L) Date Date Value Low High Status 03/25/2010 18 12 40 Final HDL Cholesterol (mg/dL) Date Date Value Low High Status 05/26/2011 54* >55 Final Date Value Low High Status 05/26/2011 Test incorrectly ordered. 0 129 Final Comment: Account Credited MAIN CAMPUS VERSION NEEDED,05/26/11 LDL Cholesterol (mg/dL) Date Date Value Low High Status 05/26/2011 204* 60 129 Final Triglyceride (mg/dL) Date Date Value Low High Status 05/26/2011 164* 30 149 Final ASSESSMENT/PLAN: 1. VANEGAS (dyspnea on exertion) - ICD9: 786.09, ICD10: R06.09 (primary diagnosis) - Stable 2. Dizziness - ICD9: 780.4, ICD10: R42 - Orthostatic at times - Vertigo occasionally 3. Chest pain, unspecified chest pain type - ICD9: 786.50, ICD10: R07.9 - no evidence of ischemia - no recurrence 4. Smoker - ICD9: 305.1, ICD10: F17.200 - Cessation encouraged. 5. ALIYA (obstructive sleep apnea) - ICD9: 327.23, ICD10: G47.33 - on CPAP with marked daily hypersomnolence pending PSG 6. Chronic obstructive pulmonary disease, unspecified COPD type (HCC) - ICD9: 496, ICD10: J44.9 7. Other and unspecified hyperlipidemia - ICD9: 272.4, ICD10: E78.5 - suboptimal control She continues to have VANEAGS related to her pulmonary disease but this is stable. She does have postprandial SOB due to her stomach feeling full. We will repeat an echocardiogram in my, perfusion imaging stress test. She'll continue efforts at smoking cessation. He cardiac studies fortunately were unremarkable in the past. She does however have significant cardiac risk factors and will try better to modifiy these risk factors and be more compliant with follow up hopefully. Her lipids are much better from testing of 01/21/17 with TC 277, TG 98, HDL 41, LDL 216 to 09/01/17: TC 166, TG 117, HDL 46 and LDL 97. Thank you for allowing me the privilege of participating in the care of your patient. Please do not hesitate to contact me if there are any questions. Christina Zamudio, DO, FACC, FCCP, FACOI Dayami Duggan MD [address] [place] [address] MIGDALIA Observed: 01/11/2018 Status: COMPLETED Source: RINARD 2:00 PM [facility] REPOSITORY Office Visit (CARDMM) HUADEVON FRANCO ([id number]) 1960 F Date Time Provider Department 01/11/18 2:00 PM CHRISTINA ZAMUDIO During your visit today, we recorded the following information about you: Pulse Blood pressure Weight Height 86/minute 110/70 101.1 kg 1.6 m Christina Zamudio DO 01/11/2018 4:17 PM Addendum ALEXANDER: 02/16/17 Devon Barahona is a 56 year old female here today for follow up regarding dizziness, dyspnea on exertion, hyperlipidemia, and palpitations with family history of premature coronary atherosclerosis, as well as atypical chest heaviness. Her symptoms fortunately have resolved and her cardiac testing was unremarkable in the past.. She unfortunately continues to smoke. She is not on a regular exercise program. Patient denies lower extremity edema, PND, orthopnea, presyncope, syncope or claudication symptoms. Prior history: We sent her for cardiac cath 04/22/11 after abnormal spect stress test and this did not show any epicardial coronary stenosis but LVEDP was elevated at 20. She has been doing better since last seen. I had asked her to quit smoking and start and exercise program last visit in May 2012 however she has been unable to do either. She currently smokes at least 12 row your own cigarettes a day. She has been on adjusted CPAP but notes she wakes with headaches and continues to have hypersomnolence. She started using quell shock treatment for severe back pain and states she no longer needs pain medicine or a cane. She had been having shortness of breath and could barely make it up 1 flight of stairs without stopping due to dyspnea. She had been having dizziness when walking or after standing from a sitting position. She had a new inhaler started. She has a history of COPD and sleep apnea on CPAP pending repeat polysomnogram in the near future. She has symptoms of palpitations with sensation of heart racing often occurring when laying down or resting 2 times a month. cardiac risk factors: age, postmenopausal female , HTN, obesity, sedentary life style, tobacco abuse and family history of heart disease. . Cardiac Interventions? None PAST MEDICAL HISTORY Diagnosis Date - Arthritis ribcage - Asthma - Bladder instability 03/17/2010 - COPD (chronic obstructive pulmonary disease) (HCC) - Esophagitis, unspecified - Family history of colon cancer 05/24/14 - Gastroesophageal reflux disease without esophagitis 01/29/2015 - GERD (gastroesophageal reflux disease) 03/17/2010 - Heme positive stool 05/24/14 - Nausea 05/24/14 - Obstructive sleep apnea - ALIYA (obstructive sleep apnea) 02/17/2011 - PMH - PAST MEDICAL HISTORY OF 1996 vulva cancer - Ulcer PAST SURGICAL HISTORY Procedure Laterality Date - BX OF BREAST; INCISIONAL Left 05/17/2017 - COLONOSCOPY 05/24/14 Repeat due 2016 - COLONOSCOPY 03/30/16 tubular adenoma, repeat in 3 years - DISCISSION,2ND CATARACT,LASER Right 10/14/2015 Yag Capsulotomy - EGD 05/24/14 - EGD [facility] SPECIMEN W/BX 04/17/10 - EXCISION MALIGNANT LESIONS,VUL 1996 Dr. Rehman. No recent F/U. in vulvar region - HEART CATHETERIZATION 04/2011 normal no CAD - MAMMO MAMMOGRAM 2009 [facility] - PAST SURGICAL HISTORY OF age 22 partial hysterectomy for DUB - PAST SURGICAL HISTORY OF left breast-lump removal - PAST SURGICAL HISTORY OF needle biopsy-right breast - x 3 - PAST SURGICAL HISTORY OF 11/27/2014 keratoplasty OS DMEK - PAST SURGICAL HISTORY OF 02/18/15 keratoplasty OD DMEK - REMV CATARACT EXTRACAP,INSERT LENS 11/22/12 OD Cataract Extraction with PC IOL - REMV CATARACT EXTRACAP,INSERT LENS OS 12/26/13 Cataract Extraction with PC IOL - REPAIR OF NASAL SEPTUM Septoplasty - SLING OPER STRES INCONTINENCE 11/26/10, 04/2011 [facility] main campus surgery FAMILY HISTORY Problem Relation Age of Onset - Heart Mother chf at 89 - Alzheimer's Disease Mother - Cataract Mother - Blindness Sister - Cancer Sister lung cancer - Emphysema Sister - Psychiatry Brother - Strabismus Brother - Amblyopia Brother - Alcohol/Drug Sister - tuberculosis [OTHER] Sister - Diabetes Other Multiple both family members. SOCIAL HISTORY Tobacco Use: .3 packs/day Types: Cigarettes (4 cigarettes per day) Alcohol Use: No ALLERGIES: Darvon, Vicodin, Percocet, Aloe Vera CURRENT MEDICATIONS: Current Outpatient Prescriptions: zolpidem (AMBIEN) 10 mg tab Take 1 tablet by mouth at bedtime as needed (insomnia) for up to 90 days. Hold to fill on 10/23/16 or after LORazepam (ATIVAN) 1 mg tablet Take 1 tablet by mouth every 6 hours as needed for up to 90 days. rosuvastatin (CRESTOR) 10 mg tablet Take 1 tablet by mouth daily at bedtime. COMPOUNDED PRESCRIPTION Assess CPAP unit settings, mask fit. Refill tubing, mask, filter, chin strap, supplies. ZOVIRAX 5 % crea APPLY TO THE AFFECTED AREA(S) FIVE TIMES DAILY. use for FOUR days with viral sores COMPOUNDED PRESCRIPTION Water pill with potassium, taking one daily turmeric root extract 500 mg cap Take 1 capsule by mouth once daily. aclidinium bromide (TUDORZA PRESSAIR) 400 mcg/actuation aepb Inhale 1 Inhalation as instructed twice daily. CPAP daily at bedtime. multivitamin tablet Take 1 tablet by mouth once daily. albuterol sulfate 90 mcg/actuation aepb Inhale 2 Puffs as instructed every 6 hours as needed (wheezing or shortness of breath). lactobacillus comb no.10 (PROBIOTIC) 20 billion cell cap Take 1 capsule by mouth once daily. cholecalciferol, vitamin D3, 5,000 unit ODT Take 1 capsule by mouth once daily. No current facility-administered medications for this visit. ROS: Card: See present history. Pulm:Negative for cough, wheezing or shortness of breath. Gastro:Negative for abdominal discomfort, blood in stools or black stools or change in bowel habits GenUr:SEE HPI Endo: Negative for cold or heat intolerance, polyuria or polydipsia. Neuro:no focal weakness, focal sensory loss, headache, visual changes, seizure activity, ataxia, speech/language loss. MusculoskeletalNegative for joint pain or swelling, back pain or muscle pain. Infect:no fevers, chills, rigors or night sweats. Skin: Negative for lesions, rash, and itching. Heme: Negative for prolonged bleeding, bruising easily or swollen nodes. The remainder of the review of systems is negative. PHYSICAL EXAMINATION: GENERAL: alert, cooperative, pleasant, oriented x 3 (self, time and place), in no acute distress BP 110/70 (BP Site: Left Arm, BP Position: Sitting, BP Cuff Size: Regular Adult) Pulse 86 Ht 160 cm (5' 3) Wt 101.1 kg (222 lb 12.8 oz) SpO2 95% BMI 39.47 kg/m? Last 3 Encounter BP Readings: Date: BP: 04/15/2011 126/99 02/17/2011 112/68 12/17/2010 100/60 Last 3 Encounter Pulse Readings: Date: Pulse: 04/15/2011 88 02/17/2011 86 12/17/2010 88 Last 3 Encounter Wt Readings: Date: Wt: 04/15/2011 87.227 kg (192 lb 4.8 oz) 04/08/2011 86.365 kg (190 lb 6.4 oz) 04/06/2011 86.183 kg (190 lb) SKIN: warm, dry, no rash. NECK: supple, no palpable masses, no JVD, carotids well felt, no bruits. CARDIAC: Perrin palpable in the 5th intercostal space mid clavicular line, normal S1 and S2, no murmurs, gallops, or rubs. CHEST: Normal respiratory efforts, lungs clear to auscultation bilaterally. ABDOMEN: Soft, no tenderness, rigidity, or masses. No palpable liver or spleen. Normal bowel sounds, no bruits. NEURO: intact cranial nerves, no motor or sensory deficits. EXTREMITIES: No cyanosis, clubbing, or edema. Peripheral pulses well felt. CARDIAC (AND OTHER IMPORTANT) TESTING: Previous Cardiac Testing: Echo 04/25/15: Normal LVEF 60%, mild RVE,mild RV hypo, RVSP 46mmHg,mild TR, trivial MR ECHO 06/15/[address] Fernandez in [place]: CONCLUSIONS: - Technically difficult exam due to body habitus and suboptimal positioning. - Exam indication: Shortness of Breath - The left ventricle is normal in size. Left ventricular systolic function is hyperdynamic. EF = 75 ? 5% (visual est.) Definity contrast used for endocardial border detection. Baseline left ventricular diastolic function is consistent with abnormal relaxation (stage 1). - The right ventricle is normal in size. Right ventricular systolic function is normal. - Estimated right ventricular systolic pressure is not reported due to an insufficient tricuspid regurgitation signal. There is no evidence for pulmonary hypertension. - Apical views are technically limited, despite the use of Definity. - LV function appears hyperdynamic. - There are no gross valvular abnormalities. - Prior [place] echo of 04/25/15 is similar. Regadenoson SPECT MPI (today) moderate size, mild intensity defect in mid to distal anterior wall c/w ischemia (LAD/Dx). CATH 04/22/11, nl coronaries, increase LVEDP 20 Cholesterol (mg/dL) Date Date Value Low High Status 05/26/2011 291* 100 199 Final HDL Cholesterol (mg/dL) Date Date Value Low High Status 05/26/2011 54* >55 Final LDL Chol, Gopal (mg/dL) Date Date Value Low High Status 08/04/2011 82 0 129 Final LDL Cholesterol (mg/dL) Date Date Value Low High Status 05/26/2011 204* 60 129 Final Triglyceride (mg/dL) Date Date Value Low High Status 05/26/2011 164* 30 149 Final LABS:TCHOL 291, TG 164, HDL 54, LDL 204 TC:HDL 5.39 No results found for this basename: chol:3, hdl:3, ldl:3, t AST (U/L) Date Value 03/25/2010 18 ALT (U/L) Date Value 03/25/2010 22 CK (U/L) Date Value 11/13/2010 67 No results found for this basename: inr:3 No results found for this basename: tsh B Natriuretic Peptid (pg/ml) Date Value 11/13/2010 14 No results found for this basename: pbnp Hemoglobin (g/dL) Date Value 11/23/2010 16.3* Hematocrit (%) Date Value 11/23/2010 47.2* WBC (k/uL) Date Value 11/23/2010 16.19* Platelet Count (k/uL) Date Value 11/23/2010 379 Glucose (mg/dL) Date Value 11/23/2010 119* Potassium (mmol/L) Date Value 11/23/2010 4.3 Sodium (mmol/L) Date Value 11/23/2010 137 Chloride (mmol/L) Date Value 11/23/2010 101 CO2 (mmol/L) Date Value 11/23/2010 21* Creatinine (mg/dL) Date Value 11/23/2010 0.77 BUN (mg/dL) Date Value 11/23/2010 15 Anion Gap (mmol/L) Date Value 11/23/2010 15 Calcium (mg/dL) Date Value 11/23/2010 10.7* _ ALT (U/L) Date Date Value Low High Status 03/25/2010 22 0 45 Final AST (U/L) Date Date Value Low High Status 03/25/2010 18 12 40 Final HDL Cholesterol (mg/dL) Date Date Value Low High Status 05/26/2011 54* >55 Final Date Value Low High Status 05/26/2011 Test incorrectly ordered. 0 129 Final Comment: Account Credited [facility] VERSION NEEDED,05/26/11 LDL Cholesterol (mg/dL) Date Date Value Low High Status 05/26/2011 204* 60 129 Final Triglyceride (mg/dL) Date Date Value Low High Status 05/26/2011 164* 30 149 Final ASSESSMENT/PLAN: 1. VANEGAS (dyspnea on exertion) - ICD9: 786.09, ICD10: R06.09 (primary diagnosis) - Stable 2. Dizziness - ICD9: 780.4, ICD10: R42 - Orthostatic at times - Vertigo occasionally 3. Chest pain, unspecified chest pain type - ICD9: 786.50, ICD10: R07.9 - no evidence of ischemia - no recurrence 4. Smoker - ICD9: 305.1, ICD10: F17.200 - Cessation encouraged. 5. ALIYA (obstructive sleep apnea) - ICD9: 327.23, ICD10: G47.33 - on CPAP with marked daily hypersomnolence pending PSG 6. Chronic obstructive pulmonary disease, unspecified COPD type (HCC) - ICD9: 496, ICD10: J44.9 7. Other and unspecified hyperlipidemia - ICD9: 272.4, ICD10: E78.5 - suboptimal control She continues to have VANEGAS related to her pulmonary disease but this is stable. She does have postprandial SOB due to her stomach feeling full. We will repeat an echocardiogram in my, perfusion imaging stress test. She'll continue efforts at smoking cessation. He cardiac studies fortunately were unremarkable in the past. She does however have significant cardiac risk factors and will try better to modifiy these risk factors and be more compliant with follow up hopefully. Her lipids are much better from testing of 01/21/17 with TC 277, TG 98, HDL 41, LDL 216 to 09/01/17: TC 166, TG 117, HDL 46 and LDL 97. Thank you for allowing me the privilege of participating in the care of your patient. Please do not hesitate to contact me if there are any questions. Christina Zamudio, DO, FACC, FCCP, FACOI Dayami Duggan MD [address] [place] [address] Referring Provider: DAYAMI DUGGAN [[id number]] Allergies As of Date: 01/11/2018 Noted Allergy Reaction ALOE VERA 03/26/2010 2 - Rash Comments: Causes bustillos/redness/blistering when applied topically. DARVON (PROPOXYPHENE HCL) 03/17/2010 8 - GI Upset 11 - Vomiting DOXYCYCLINE 09/08/2012 14 - Other: See Comments Comments: Vaginal yeast infection. PERCOCET (OXYCODONE-ACETAMINOPHEN)03/17/2010 1 - Mental Status Change Comments: Visual hallucinations VICODIN (HYDROCODONE-ACETAMINOPHE*03/17/2010 8 - GI Upset Date Reviewed: 01/11/2018 Reviewed by: Joanna Chaparro Ma - Fully Assessed Reason for Visit: CARD Follow Up 6 Month [1231] Primary Visit Diagnosis:Chest pain, unspecified type [R07.9] Other Visit Diagnoses:SOB (shortness of breath) [R06.02] ALIYA (obstructive sleep apnea) [G47.33] Panlobular emphysema (HCC) [J43.1] Order(s):ECHO [[id number]] Order #: [id number]: 1 FUTURE PHARMACOLOGIC STRESS W/NUC IMAGING [[id number]] Order #: [id number]: 1 NM CARDIAC PERF STRESS/PHARM [[id number]] Order #: [id number] FUTURE Prescriptions as of 01/11/2018 Sig: ZOLPIDEM 10 MG TABLET Take 1 tablet by mouth at bed* LORAZEPAM 1 MG TABLET Take 1 tablet by mouth every * ROSUVASTATIN 10 MG TABLET Take 1 tablet by mouth daily * COMPOUNDED PRESCRIPTION Assess CPAP unit settings, ma* ZOVIRAX 5 % TOPICAL CREAM APPLY TO THE AFFECTED AREA(S)* COMPOUNDED PRESCRIPTION Water pill with potassium, ta* TURMERIC ROOT EXTRACT 500 MG * Take 1 capsule by mouth once * ACLIDINIUM BROMIDE 400 MCG/AC* Inhale 1 Inhalation as instru* CPAP daily at bedtime. MULTIVITAMIN TABLET Take 1 tablet by mouth once d* ALBUTEROL SULFATE 90 MCG/ACTU* Inhale 2 Puffs as instructed * LACTOBACILLUS COMBINATION NO.* Take 1 capsule by mouth once * CHOLECALCIFEROL (VITAMIN D3) * Take 1 capsule by mouth once * Medication notes this encounter COMPOUNDED PRESCRIPTION >> Joanna Chaparro Ma 01/11/2018 1:54 PM >> JOANNA CHAPARRO MA TueJan 11, 2018 1:54 PM prn MULTIVITAMIN TABLET >> Joanna Chaparro Ma 01/11/2018 1:55 PM >> JOANNA CHAPARRO MA TueJan 11, 2018 1:55 PM Not taking ALBUTEROL SULFATE 90 MCG/ACTUATION BREATH ACTIVATED POWDER INHALER >> Joanna Chaparro Ma 01/11/2018 1:54 PM >> JOANNA CHAPARRO MA TueJan 11, 2018 1:54 PM Not taking LACTOBACILLUS COMBINATION NO.10 20 BILLION CELL CAPSULE >> Joanna Chaparro Ma 01/11/2018 1:55 PM >> JOANNA CHAPARRO MA TueJan 11, 2018 1:55 PM Not taking CHOLECALCIFEROL (VITAMIN D3) 5,000 UNIT DISINTEGRATING TABLET >> Joanna Chaparro Ma 01/11/2018 1:54 PM >> JOANNA CHAPARRO MA TueJan 11, 2018 1:54 PM Not taking Problem List As Of Date 01/11/2018 Noted Resolved Arthritis [M19.90] INVALID FOR* Back pain [M54.9] INVALID FOR*03/23/2016 More... Bladder instability [N32.89] INVALID FOR*03/20/2014 Asthma [J45.909] INVALID FOR*06/06/2012 Acute gastritis without mention of hemorrhage [*INVALID FOR*05/04/2012 ALIYA (obstructive sleep apnea) [G47.33] INVALID FOR* More... COPD (chronic obstructive pulmonary disease) [J*INVALID FOR* Other and unspecified hyperlipidemia [E78.5] INVALID FOR* Lumbar strain [S39.012A] INVALID FOR*05/04/2012 Lumbar spondylosis [M47.816] INVALID FOR*05/04/2012 Lumbar radiculopathy [M54.16] INVALID FOR*05/04/2012 Lumbar disc displacement without myelopathy [M5*INVALID FOR*05/04/2012 Low back pain [M54.5] INVALID FOR*03/23/2016 DDD (degenerative disc disease), lumbar [M51.36]INVALID FOR* Globus syndrome [F45.8] INVALID FOR*03/20/2014 Rhinitis [J31.0] INVALID FOR*05/04/2012 Laryngitis [J04.0] INVALID FOR*05/04/2012 Anxiety [F41.9] INVALID FOR* Scars [L90.5] INVALID FOR*05/04/2012 Hirsutism [L68.0] INVALID FOR*05/04/2012 Emphysema [J43.9] INVALID FOR* Back pain, chronic [M54.9, G89.29] INVALID FOR* Scalp lesion [L98.9] INVALID FOR*03/20/2014 Vulvar itching [L29.2] INVALID FOR*03/20/2014 Lens replaced by other means [Z96.1] INVALID FOR*03/23/2016 Insomnia [G47.00] INVALID FOR* Irritable bowel [K58.9] INVALID FOR* Mucopurulent chronic bronchitis (HCC) [J41.1] INVALID FOR* Gastroesophageal reflux disease without esophag*INVALID FOR* Cornea replaced by transplant [Z94.7] INVALID FOR*03/23/2016 Chronic pain of right knee [M25.561, G89.29] INVALID FOR* After-cataract obscuring vision, left [H26.492] INVALID FOR* Pseudophakia of both eyes [Z96.1] INVALID FOR* History of Descemet membrane endothelial kerato*INVALID FOR* More... Disposition: Return in about 6 months (around 07/13/2018). Follow-up and Disposition History Recorded Encounter Status:Closed by CHRISTINA ZAMUDIO DO on 01/11/18 CHIROPRACTIC REPORT Observed: 12/08/2017 Status: F Source: DEXTER 2:12 PM [facility] [address] [place] [address]51 OFFICE VISIT Date of Service: 12/08/17 MR#: [id number] Acct: [id number] Name: DEVON BARAHONA Rep #: [id number] : 1960 Provider: [facility] D[employer] Age/Sex: 57/F Location: [facility] Status: Signed Intake Vital Signs12/08/17 Height 5 ft 3 in 12/08/17 Weight: 220 lb 12/08/17 Body Mass Index (BMI) 38.9 Intake Visit Reasons: back pain Chief Complaint: L sided low back pain Is patient in pain?: Yes Allergies aloe vera Allergy (Verified 05/25/14 19:31) Other doxycycline Allergy (Verified 05/25/14 19:31) Other hydrocodone bitartrate [From Vicodin] Allergy (Verified 05/25/14 19:31) Upset Stomach oxycodone HCl [From Percocet] Allergy (Verified 05/25/14 19:31) Other propoxyphene HCl [From Darvon] Allergy (Verified 05/25/14 19:31) Vomiting Medications Acetaminophen with Codeine [Tylenol with Codeine #4 Tablet] 1 ea PO Q6H PRN PRN 05/20/14 [History Confirmed 05/24/14] Albuterol Aerosols [Ventolin Aerosols] 2.5 mg INHALATION Q6H PRN PRN 05/20/14 [History Confirmed 05/24/14] Cyclobenzaprine [Flexeril] 10 mg PO TID PRN PRN 05/20/14 [History Confirmed 05/24/14] Esomeprazole Mag Trihydrate [Nexium] 40 mg PO BID 05/20/14 [History Confirmed 05/24/14] Gabapentin [Gralise] 300 mg PO QHS 05/20/14 [History Confirmed 05/24/14] Linaclotide [Linzess] 290 mcg PO DAILY 05/20/14 [History Confirmed 05/24/14] Lorazepam [Ativan] 1 mg PO Q6H PRN PRN 05/20/14 [History Confirmed 05/24/14] Rosuvastatin Calcium [Crestor] 10 mg PO QHS 05/20/14 [History Confirmed 05/24/14] Ciprofloxacin [Cipro] 500 mg PO BID #10 tab 05/25/14 [Rx] Fluconazole [Diflucan] 150 mg PO X1 #3 tab 05/25/14 [Rx] Oxycodone HCl/Acetaminophen [Percocet 5-325] 1 - 2 tab PO Q4H PRN PRN #30 tab 05/25/14 [Rx] esomeprazole magnesium 20 mg capsule,delayed release 20 mg PO QDAY 11/08/17 [History Confirmed 11/08/17] lactobacillus combination no.8 3 billion cell capsule 3,000 mmu cells PO QDAY 11/08/17 [History Confirmed 11/08/17] rosuvastatin 10 mg tablet 10 mg PO ONCE 11/08/17 [History Confirmed 11/08/17] PFSH Medical History Acute asthma (Acute) Arthritis (Acute) Carpal tunnel syndrome (Acute) Environmental allergies (Acute) GERD (gastroesophageal reflux disease) (Acute) High cholesterol (Acute) High triglycerides (Acute) History Valvular Surgery (Acute) History of cancer of vulva (Acute) Hx TIA/stroke w/o resid (Acute) Hx of colon cancer, stage I (Acute) IBS (irritable bowel syndrome) (Acute) Sleep apnea (Acute) Surgical History History of bladder surgery (Acute) History of breast surgery (Acute) History of cataract surgery (Acute) History of cornea transplant (Acute) History of partial hysterectomy (Acute) Family History Other Alcoholism Anxiety Arthritis Asthma Breast cancer Cervical cancer Colon cancer Depression Heart disease High cholesterol Suicidal behavior Social History Smoking Status: Current every day smoker tobacco type: cigarettes quit status: not considering quitting alcohol intake: never substance use type: does not use what type of physical activity do you participate in: none HPI back pain : Chief Complaint: back pain Visit Number: 4 Details: DEVON BARAHONA is a 57 year old F who presents with L sided low back pain. Devon states that over the weekend she was mowing and hit a hole, causing her to be flung forward, she is now experiencing L sided low back pain. Today the patient rates her pain a 4/10 and describes it as a sharp ache, as though her hip is out. Walking, bending, and prolonged standing cause increased pain, although she denies any numbness, tingling, or radiculopathy. Onset: 12/04/17 Location: L low back Duration: constant Aggravating or associated factors: bending, lifting and prolonged standing Relieving factors: chiro Pain Quality: aching, dull, sharp Current Sensation: weakness/looseness Exam Musc General: Yes normal posture, normal gait, joint tenderness (T8, T9, L2, L3, L5, L>R SI jt.) and decreased ROM Thoracic/Lumbar Spine: thoracic and lumbar spine normal to inspection, Lasegue's sign positive on the right, pain with thoraco-lumbar ROM with forward flexion, with lateral flexion to the right and with lateral flexion to the left, paraspinal tenderness on the left greater than right (lower lumbar, pelvis), thoraco-lumbar ROM limited with forward flexion and with lateral flexion to the left, thoraco-lumbar spasm bilaterally in the lower lumbar Sacroiliac joints: on the left Sacrum: tenderness on the right Office Procedures Chiropractic Treatments Procedures Manipulation: 1-2 regions (LIL, RIL) Traction, Mechanical: Yes Details: Lumbar traction 15 Assessment AND Plan 1. Segmental and somatic dysfunction of pelvic region M99.05 Orders Orders: 2. Segmental and somatic dysfunction of thoracic region M99.02 Orders Orders: 3. Segmental and somatic dysfunction of lumbar region M99.03 Orders Orders: Plan Detail Goals Decrease pain Increase ROM Follow Up 2 Weeks Coding Level of Care Code No Charge Diagnoses Segmental and somatic dysfunction of pelvic region M99.05 Segmental and somatic dysfunction of thoracic region M99.02 Segmental and somatic dysfunction of lumbar region M99.03 Additional Codes Procedures - Manipulation: 1-2 regions (66597) Procedures - Traction, Mechanical: Yes (65366) 12/08/17 1412 <Electronically signed by [facility] D.C[facility]> Date [facility] Cosigner Signature: Date (if applicable) CC: CHIROPRACTIC REPORT Observed: 11/28/2017 Status: F Source: GOPAL 3:01 PM [facility] [address] [place] [address] OFFICE VISIT Date of Service: 11/24/17 MR#: [id number] Acct: [id number] Name: DEVON BARAHONA Rep #: [id number] : 1960 Provider: [facility] Age/Sex: 57/F Location: [facility] Status: Signed Intake Vital Signs11/24/17 Height 5 ft 3 in 11/24/17 Weight: 220 lb 11/24/17 Body Mass Index (BMI) 38.9 Intake Visit Reasons: low back pain Chief Complaint: R sided low back pain Is patient in pain?: Yes Allergies aloe vera Allergy (Verified 05/25/14 19:31) Other doxycycline Allergy (Verified 05/25/14 19:31) Other hydrocodone bitartrate [From Vicodin] Allergy (Verified 05/25/14 19:31) Upset Stomach oxycodone HCl [From Percocet] Allergy (Verified 05/25/14 19:31) Other propoxyphene HCl [From Darvon] Allergy (Verified 05/25/14 19:31) Vomiting Medications Acetaminophen with Codeine [Tylenol with Codeine #4 Tablet] 1 ea PO Q6H PRN PRN 05/20/14 [History Confirmed 05/24/14] Albuterol Aerosols [Ventolin Aerosols] 2.5 mg INHALATION Q6H PRN PRN 05/20/14 [History Confirmed 05/24/14] Cyclobenzaprine [Flexeril] 10 mg PO TID PRN PRN 05/20/14 [History Confirmed 05/24/14] Esomeprazole Mag Trihydrate [Nexium] 40 mg PO BID 05/20/14 [History Confirmed 05/24/14] Gabapentin [Gralise] 300 mg PO QHS 05/20/14 [History Confirmed 05/24/14] Linaclotide [Linzess] 290 mcg PO DAILY 05/20/14 [History Confirmed 05/24/14] Lorazepam [Ativan] 1 mg PO Q6H PRN PRN 05/20/14 [History Confirmed 05/24/14] Rosuvastatin Calcium [Crestor] 10 mg PO QHS 05/20/14 [History Confirmed 05/24/14] Ciprofloxacin [Cipro] 500 mg PO BID #10 tab 05/25/14 [Rx] Fluconazole [Diflucan] 150 mg PO X1 #3 tab 05/25/14 [Rx] Oxycodone HCl/Acetaminophen [Percocet 5-325] 1 - 2 tab PO Q4H PRN PRN #30 tab 05/25/14 [Rx] esomeprazole magnesium 20 mg capsule,delayed release 20 mg PO QDAY 11/08/17 [History Confirmed 11/08/17] lactobacillus combination no.8 3 billion cell capsule 3,000 mmu cells PO QDAY 11/08/17 [History Confirmed 11/08/17] rosuvastatin 10 mg tablet 10 mg PO ONCE 11/08/17 [History Confirmed 11/08/17] PFS Medical History Acute asthma (Acute) Arthritis (Acute) Carpal tunnel syndrome (Acute) Environmental allergies (Acute) GERD (gastroesophageal reflux disease) (Acute) High cholesterol (Acute) High triglycerides (Acute) History Valvular Surgery (Acute) History of cancer of vulva (Acute) Hx TIA/stroke w/o resid (Acute) Hx of colon cancer, stage I (Acute) IBS (irritable bowel syndrome) (Acute) Sleep apnea (Acute) Surgical History History of bladder surgery (Acute) History of breast surgery (Acute) History of cataract surgery (Acute) History of cornea transplant (Acute) History of partial hysterectomy (Acute) Family History Other Alcoholism Anxiety Arthritis Asthma Breast cancer Cervical cancer Colon cancer Depression Heart disease High cholesterol Suicidal behavior Social History Smoking Status: Current every day smoker tobacco type: cigarettes quit status: not considering quitting alcohol intake: never substance use type: does not use what type of physical activity do you participate in: none HPI low back pain : Chief Complaint: Low back pain Visit Number: 3 Details: DEVON BARAHONA is a 57 year old F who presents with R sided low back pain. She states that recently the pain has decreased. She no longer feels a compressed sensation although from time to time she notes a feeling of squeezing around the hips. Today Devon rates her pain a 3/10 and describes it as a dull ache that is specifically in the R lower back. Bending, lifting, and twisting cause increased pain although she denies any numbness, tingling, or radiculopathy. Onset: 11/20/17 Location: R low back Duration: intermittent Aggravating or associated factors: bending, lifting, and twisting Relieving factors: chiro Pain Quality: aching, dull, cramping Exam Musc General: Yes normal posture, normal gait, joint tenderness (T8, T9, L2, L3, L5, R SI jt.) and decreased ROM Thoracic/Lumbar Spine: thoracic and lumbar spine normal to inspection, Lasegue's sign positive on the right, pain with thoraco-lumbar ROM with forward flexion, with lateral flexion to the right and with lateral flexion to the left, paraspinal tenderness on the right greater than left, thoraco-lumbar ROM limited with forward flexion and with lateral flexion to the left, thoraco-lumbar spasm bilaterally in the lower lumbar Office Procedures Chiropractic Treatments Procedures Manipulation: 3-4 regions (T8, L2, L5, RIL) Traction, Mechanical: Yes Details: Lumbar traction 15 min Assessment AND Plan 1. Segmental and somatic dysfunction of pelvic region M99.05 Orders Orders: 2. Segmental and somatic dysfunction of thoracic region M99.02 Orders Orders: 3. Segmental and somatic dysfunction of lumbar region M99.03 Orders Orders: Plan Detail Goals Decrease pain Increase ROM Follow Up 1 Week Coding Level of Care Code No Charge Diagnoses Segmental and somatic dysfunction of pelvic region M99.05 Segmental and somatic dysfunction of thoracic region M99.02 Segmental and somatic dysfunction of lumbar region M99.03 Additional Codes Procedures - Traction, Mechanical: Yes (50285) Procedures - Manipulation: 3-4 regions (75594) 11/28/17 1501 <Electronically signed by [facility] D.C[facility]> Date [facility] Cosigner Signature: Date (if applicable) CC: PROGRESS Observed: 11/21/2017 Status: COMPLETED Source: [place]INARD 2:31 PM [facility] [place] [facility] HNO ID: [id number] Author: Ivet Medellin Service: (none) Author Type: Physician Lens Block Gauger Type: Progress Notes Filed: 11/21/2017 3:20 PM Note Text: [facility] [place], 11/21/2017: ? INTERVAL HISTORY: Ms. Barahona is here for follow up of COPD and obstructive sleep apnea. Since the 04/2017 visit, the patient has not sought MD, ED or hospital care for exacerbation. ? She has been compliant with prescribed Rx. Daily cough; occasionally with clear sputum. No hemoptysis, wheezing, chest tightness. Exertional dyspnea, stable. Continues to do color television console monitor, including making bed, vacuuming, bending over all associated with shortness of breath, but still able to complete these activities. Not short of breath at rest. Still consistently compliant with CPAP. ? PMH changes:?Corneal transplants OU. FAMH changes: DM cousin and others. SOCH changes:?1-2 cigarettes per day from 0.5 pack per day. ? ROS: General: Generally feels tired. Appetite good. Weight stable. Eyes, Ears, nose, throat: No post nasal drip,rhinorrhea, purulent nasal discharge, epistaxis. No hoarseness. Vision stable. Cardiac: No angina. 30 degree incline orthopnea. Lower extremity edema. GI: Heartburn, constantly. No dysphagia, diarrhea. 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 Musculoskeletal: No pain. Neuro: No headache, focal weakness, tremor. Skin: No rash. Otherwise negative. ? Immunization History Administered Date(s) Administered DTP 04/21/2014 Influenza Vaccine, Split-Non Spec 05/26/2011 Pneumococcal-13 Vac Conjugate 09/26/2014 Pneumovax 08/13/2010 ? Allergies were reviewed and updated, and medications were reconciled with the patient. ? PHYSICAL EXAMINATION: BP 120/80 Pulse 74 Resp 16 Ht 5' 3 (1.60m) Wt 222 lb (100.7kg) SpO2 94% BMI 39.34 kg/(m2). Gen: No acute distress. Cooperative with examination. Obese. ENT: Sclerae clear. EOMI. Nares clear. Oral hygeine good. Good dentition. Pharynx clear. No halitosis. Resp: No stridor, accessory respiratory muscle use, supra- sternal or intercostal retractions. A-P diameter normal. No wheezes crackles, rubs. CV: Regular rythm. Heart tones normal. No carotid bruit. Radial pulses normal. Abd: No distended. MSK: No kyphoscoliosis. No joint deformities. Ext: Warm and well perfused. No clubbing. No cyanosis. No edema. Skin: Color normal. Texture normal. No rash, eczema, urticaria, ecchymoses. Neuro: Mental status normal. Affect normal. Muscle tone normal. No tremor. ?? DATA REVIEW: PFT?11/21/17?04/22/16?03/13/15? FVC?3.31L, 102%?3.30L, 100%?3.55L, 107%? FEV1?1.93L, 77%?2.19L, 85%?2.09L, 81%? FEV1%?0.58? 0.66?0.59? IMPRESSION/RECOMMEND: 1. COPD with chronic bronchitis; moderate with decrease in FEV1 today. Reviewed with patient today. States she was previously on Advair and Symbicort without any improvement in symptoms. Does not want to start a new medication at this time. Wants to stop quitting. - Continue Tudorza twice daily. - Continue Albuterol HFA metered dose inhaler, 2 inhalations as needed for shortness of breath or wheezing, up to every 4 hours. - Follow up in 6 months; sooner if needed. ? 2. Tobacco use disorder, continuous. - Smoking cessation is critical to preserve lung function. - Continue efforts to reduce use. ? 3. ALIYA. - Continue CPAP nightly and with any sleep. I addressed the questions of the patient, and she expressed understanding and acceptance of my answers ? Ivet Medellin PA-C [facility] [address] [phone] ? CNOV Observed: 11/21/2017 Status: COMPLETED Source: RINARD 2:30 PM [facility] Office Visit (PULMWS) DEVON BARAHONA ([id number]) 1960 F Date Time Provider Department 11/21/17 2:30 PM IVET MEDELLIN PULMWS During your visit today, we recorded the following information about you: Pulse Respiration Blood pressure Weight 74/minute 16/minute 120/80 100.7 kg Height 1.6 m Otilia Branch LPN 11/21/2017 2:21 PM Signed Intake information documented in the prior visit with Karen Spears, AUTO WASHER today. Ivet Medellin 11/21/2017 3:20 PM Signed [facility] [place], 11/21/2017: ? INTERVAL HISTORY: Ms. Barahona is here for follow up of COPD and obstructive sleep apnea. Since the 04/2017 visit, the patient has not sought MD, ED or hospital care for exacerbation. ? She has been compliant with prescribed Rx. Daily cough; occasionally with clear sputum. No hemoptysis, wheezing, chest tightness. Exertional dyspnea, stable. Continues to do color television console monitor, including making bed, vacuuming, bending over all associated with shortness of breath, but still able to complete these activities. Not short of breath at rest. Still consistently compliant with CPAP. ? PMH changes:?Corneal transplants OU. FAMH changes: DM cousin and others. SOCH changes:?1-2 cigarettes per day from 0.5 pack per day. ? ROS: General: Generally feels tired. Appetite good. Weight stable. Eyes, Ears, nose, throat: No post nasal drip,rhinorrhea, purulent nasal discharge, epistaxis. No hoarseness. Vision stable. Cardiac: No angina. 30 degree incline orthopnea. Lower extremity edema. GI: Heartburn, constantly. No dysphagia, diarrhea. 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 Musculoskeletal: No pain. Neuro: No headache, focal weakness, tremor. Skin: No rash. Otherwise negative. ? Immunization History Administered Date(s) Administered DTP 04/21/2014 Influenza Vaccine, Split-Non Spec 05/26/2011 Pneumococcal-13 Vac Conjugate 09/26/2014 Pneumovax 08/13/2010 ? Allergies were reviewed and updated, and medications were reconciled with the patient. ? PHYSICAL EXAMINATION: BP 120/80 Pulse 74 Resp 16 Ht 5' 3 (1.60m) Wt 222 lb (100.7kg) SpO2 94% BMI 39.34 kg/(m2). Gen: No acute distress. Cooperative with examination. Obese. ENT: Sclerae clear. EOMI. Nares clear. Oral hygeine good. Good dentition. Pharynx clear. No halitosis. Resp: No stridor, accessory respiratory muscle use, supra- sternal or intercostal retractions. A-P diameter normal. No wheezes crackles, rubs. CV: Regular rythm. Heart tones normal. No carotid bruit. Radial pulses normal. Abd: No distended. MSK: No kyphoscoliosis. No joint deformities. Ext: Warm and well perfused. No clubbing. No cyanosis. No edema. Skin: Color normal. Texture normal. No rash, eczema, urticaria, ecchymoses. Neuro: Mental status normal. Affect normal. Muscle tone normal. No tremor. ?? DATA REVIEW: PFT?11/21/17?04/22/16?03/13/15?- ? FVC?3.31L, 102%?3.30L, 100%?3.55L, 107%? FEV1?1.93L, 77%?2.19L, 85%?2.09L, 81%? FEV1%?0.58? 0.66?0.59?- ? IMPRESSION/RECOMMEND: 1. COPD with chronic bronchitis; moderate with decrease in FEV1 today. Reviewed with patient today. States she was previously on Advair and Symbicort without any improvement in symptoms. Does not want to start a new medication at this time. Wants to stop quitting. - Continue Tudorza twice daily. - Continue Albuterol HFA metered dose inhaler, 2 inhalations as needed for shortness of breath or wheezing, up to every 4 hours. - Follow up in 6 months; sooner if needed. ? 2. Tobacco use disorder, continuous. - Smoking cessation is critical to preserve lung function. - Continue efforts to reduce use. ? 3. ALIYA. - Continue CPAP nightly and with any sleep. I addressed the questions of the patient, and she expressed understanding and acceptance of my answers ? Ivet Medellin PA-C [facility] [place] [facility] [address] [place] [phone] ? Ivet Medellin 11/21/2017 3:18 PM Signed 1. COPD with chronic bronchitis; moderate with decrease in FEV1 today. Reviewed with patient today. States she was previously on Advair and Symbicort without any improvement in symptoms. Does not want to start a new medication at this time. Wants to stop quitting. - Continue Tudorza twice daily. - Continue Albuterol HFA metered dose inhaler, 2 inhalations as needed for shortness of breath or wheezing, up to every 4 hours. - Follow up in 6 months; sooner if needed. ? 2. Tobacco use disorder, continuous. - Smoking cessation is critical to preserve lung function. - Continue efforts to reduce use. ? 3. ALIYA. - Continue CPAP nightly and with any sleep. Referring Provider: LOU MENDOZA [[id number]] Allergies As of Date: 11/21/2017 Noted Allergy Reaction ALOE VERA 03/26/2010 2 - Rash Comments: Causes bustillos/redness/blistering when applied topically. DARVON (PROPOXYPHENE HCL) 03/17/2010 8 - GI Upset 11 - Vomiting DOXYCYCLINE 09/08/2012 14 - Other: See Comments Comments: Vaginal yeast infection. PERCOCET (OXYCODONE-ACETAMINOPHEN)03/17/2010 1 - Mental Status Change Comments: Visual hallucinations VICODIN (HYDROCODONE-ACETAMINOPHE*03/17/2010 8 - GI Upset Date Reviewed: 11/21/2017 Reviewed by: Ivet Medellin - Fully Assessed Reason for Visit: Established Patient [175] Cmt: COPD Primary Visit Diagnosis:Chronic obstructive pulmonary disease, unspecified COPD type (HCC) [J44.9] Other Visit Diagnoses:Tobacco use disorder [F17.200] ALIYA on CPAP [G47.33, Z99.89] Order(s):SPIROMETRY BASELINE ONLY [9684699] Order #: [id number] FUTURE Prescriptions as of 11/21/2017 Sig: ZOLPIDEM 10 MG TABLET Take 1 tablet by mouth at bed* LORAZEPAM 1 MG TABLET Take 1 tablet by mouth every * ROSUVASTATIN 10 MG TABLET Take 1 tablet by mouth daily * MULTIVITAMIN TABLET Take 1 tablet by mouth once d* ZOVIRAX 5 % TOPICAL CREAM APPLY TO THE AFFECTED AREA(S)* LACTOBACILLUS COMBINATION NO.* Take 1 capsule by mouth once * TURMERIC ROOT EXTRACT 500 MG * Take 1 capsule by mouth once * CHOLECALCIFEROL (VITAMIN D3) * Take 1 capsule by mouth once * ACLIDINIUM BROMIDE 400 MCG/AC* Inhale 1 Inhalation as instru* COMPOUNDED PRESCRIPTION Assess CPAP unit settings, ma* ALBUTEROL SULFATE 90 MCG/ACTU* Inhale 2 Puffs as instructed * COMPOUNDED PRESCRIPTION Water pill with potassium, ta* CPAP daily at bedtime. Problem List As Of Date 11/21/2017 Noted Resolved Arthritis [M19.90] INVALID FOR* Back pain [M54.9] INVALID FOR*03/23/2016 More... Bladder instability [N32.89] INVALID FOR*03/20/2014 Asthma [J45.909] INVALID FOR*06/06/2012 Acute gastritis without mention of hemorrhage [*INVALID FOR*05/04/2012 ALIYA (obstructive sleep apnea) [G47.33] INVALID FOR* More... COPD (chronic obstructive pulmonary disease) [J*INVALID FOR* Other and unspecified hyperlipidemia [E78.5] INVALID FOR* Lumbar strain [S39.012A] INVALID FOR*05/04/2012 Lumbar spondylosis [M47.816] INVALID FOR*05/04/2012 Lumbar radiculopathy [M54.16] INVALID FOR*05/04/2012 Lumbar disc displacement without myelopathy [M5*INVALID FOR*05/04/2012 Low back pain [M54.5] INVALID FOR*03/23/2016 DDD (degenerative disc disease), lumbar [M51.36]INVALID FOR* Globus syndrome [F45.8] INVALID FOR*03/20/2014 Rhinitis [J31.0] INVALID FOR*05/04/2012 Laryngitis [J04.0] INVALID FOR*05/04/2012 Anxiety [F41.9] INVALID FOR* Scars [L90.5] INVALID FOR*05/04/2012 Hirsutism [L68.0] INVALID FOR*05/04/2012 Emphysema [J43.9] INVALID FOR* Back pain, chronic [M54.9, G89.29] INVALID FOR* Scalp lesion [L98.9] INVALID FOR*03/20/2014 Vulvar itching [L29.2] INVALID FOR*03/20/2014 Lens replaced by other means [Z96.1] INVALID FOR*03/23/2016 Insomnia [G47.00] INVALID FOR* Irritable bowel [K58.9] INVALID FOR* Mucopurulent chronic bronchitis (HCC) [J41.1] INVALID FOR* Gastroesophageal reflux disease without esophag*INVALID FOR* Cornea replaced by transplant [Z94.7] INVALID FOR*03/23/2016 Chronic pain of right knee [M25.561, G89.29] INVALID FOR* After-cataract obscuring vision, left [H26.492] INVALID FOR* Pseudophakia of both eyes [Z96.1] INVALID FOR* History of Descemet membrane endothelial kerato*INVALID FOR* More... Other instructions from your clinician: 1. COPD with chronic bronchitis; moderate with decrease in FEV1 today. Reviewed with patient today. States she was previously on Advair and Symbicort without any improvement in symptoms. Does not want to start a new medication at this time. Wants to stop quitting. - Continue Tudorza twice daily. - Continue Albuterol HFA metered dose inhaler, 2 inhalations as needed for shortness of breath or wheezing, up to every 4 hours. - Follow up in 6 months; sooner if needed. ? 2. Tobacco use disorder, continuous. - Smoking cessation is critical to preserve lung function. - Continue efforts to reduce use. ? 3. ALIYA. - Continue CPAP nightly and with any sleep. Visit Notes: >> Otilia Branch LPN Mon November 21, 2017 2:21 PM Status: Signed Intake information documented in the prior visit with Karen Spears CRT today. Medications Discontinued During This Encounter meloxicam (MOBIC) 15 mg tablet 90 t* 0 09/12/2017 11/21/2017 Route: ORAL Sig: Take 1 tablet by mouth once daily. Disc: Discontinued by Patient Disposition: Return in about 6 months (around 05/24/2018). Follow-up and Disposition History Recorded Encounter Status:Closed by IVET MEDELLIN on 11/21/17 CHIROPRACTIC REPORT Observed: 11/15/2017 Status: F Source: DEXTER 2:00 PM [facility] [address] [place] [id number] OFFICE VISIT Date of Service: 11/14/17 MR#: [id number] Acct: [id number] Name: DEVON BARAHONA Rep #: [id number] : 1960 Provider: Sultana North D.C. Age/Sex: 57/F Location: [facility] Status: Signed Intake Vital Signs11/14/17 Height 5 ft 3 in 11/14/17 Weight: 220 lb 11/14/17 Body Mass Index (BMI) 38.9 Intake Visit Reasons: back pain Is patient in pain?: Yes Allergies aloe vera Allergy (Verified 05/25/14 19:31) Other doxycycline Allergy (Verified 05/25/14 19:31) Other hydrocodone bitartrate [From Vicodin] Allergy (Verified 05/25/14 19:31) Upset Stomach oxycodone HCl [From Percocet] Allergy (Verified 05/25/14 19:31) Other propoxyphene HCl [From Darvon] Allergy (Verified 05/25/14 19:31) Vomiting Medications Acetaminophen with Codeine [Tylenol with Codeine #4 Tablet] 1 ea PO Q6H PRN PRN 05/20/14 [History Confirmed 05/24/14] Albuterol Aerosols [Ventolin Aerosols] 2.5 mg INHALATION Q6H PRN PRN 05/20/14 [History Confirmed 05/24/14] Cyclobenzaprine [Flexeril] 10 mg PO TID PRN PRN 05/20/14 [History Confirmed 05/24/14] Esomeprazole Mag Trihydrate [Nexium] 40 mg PO BID 05/20/14 [History Confirmed 05/24/14] Gabapentin [Gralise] 300 mg PO QHS 05/20/14 [History Confirmed 05/24/14] Linaclotide [Linzess] 290 mcg PO DAILY 05/20/14 [History Confirmed 05/24/14] Lorazepam [Ativan] 1 mg PO Q6H PRN PRN 05/20/14 [History Confirmed 05/24/14] Rosuvastatin Calcium [Crestor] 10 mg PO QHS 05/20/14 [History Confirmed 05/24/14] Ciprofloxacin [Cipro] 500 mg PO BID #10 tab 05/25/14 [Rx] Fluconazole [Diflucan] 150 mg PO X1 #3 tab 05/25/14 [Rx] Oxycodone HCl/Acetaminophen [Percocet 5-325] 1 - 2 tab PO Q4H PRN PRN #30 tab 05/25/14 [Rx] esomeprazole magnesium 20 mg capsule,delayed release 20 mg PO QDAY 11/08/17 [History Confirmed 11/08/17] lactobacillus combination no.8 3 billion cell capsule 3,000 mmu cells PO QDAY 11/08/17 [History Confirmed 11/08/17] rosuvastatin 10 mg tablet 10 mg PO ONCE 11/08/17 [History Confirmed 11/08/17] PFSH Medical History Acute asthma (Acute) Arthritis (Acute) Carpal tunnel syndrome (Acute) Environmental allergies (Acute) GERD (gastroesophageal reflux disease) (Acute) High cholesterol (Acute) High triglycerides (Acute) History Valvular Surgery (Acute) History of cancer of vulva (Acute) Hx TIA/stroke w/o resid (Acute) Hx of colon cancer, stage I (Acute) IBS (irritable bowel syndrome) (Acute) Sleep apnea (Acute) Surgical History History of bladder surgery (Acute) History of breast surgery (Acute) History of cataract surgery (Acute) History of cornea transplant (Acute) History of partial hysterectomy (Acute) Family History Other Alcoholism Anxiety Arthritis Asthma Breast cancer Cervical cancer Colon cancer Depression Heart disease High cholesterol Suicidal behavior Social History Smoking Status: Current every day smoker tobacco type: cigarettes quit status: not considering quitting alcohol intake: never substance use type: does not use what type of physical activity do you participate in: none HPI back pain : Chief Complaint: back pain Visit Number: 2 Details: DEVON BARAHONA is a 57 year old F who presents with decreased low back - R sided pain. After her last treatment she states that she was pain free for roughly two days, now she states the pain has begun on the R side. Today Devon rates her pain a 4/10 and describes it as a sensation of the R hip being out, with pain radiating into the R thigh and groin area, although she denies any numbness or tingling. Onset: 11/12/17 Location: R low back Duration: frequent Aggravating or associated factors: walking, bending, and twisting Relieving factors: adjustment Pain Quality: aching, dull, cramping, sharp Exam Musc General: Yes normal posture, normal gait, joint tenderness (T8, T9, L2, L3, L5, R SI jt.) and decreased ROM Thoracic/Lumbar Spine: thoracic and lumbar spine normal to inspection, Lasegue's sign positive on the right, pain with thoraco-lumbar ROM with forward flexion, with lateral flexion to the right and with lateral flexion to the left, paraspinal tenderness on the right greater than left, thoraco-lumbar ROM limited with forward flexion and with lateral flexion to the left, thoraco-lumbar spasm bilaterally in the lower lumbar Office Procedures Chiropractic Treatments Procedures Manipulation: 1-2 regions (L3, RIL) Assessment AND Plan Problems 1. Segmental and somatic dysfunction of thoracic region M99.02 2. Segmental and somatic dysfunction of lumbar region M99.03 3. Segmental and somatic dysfunction of pelvic region M99.05 Plan Continue with acute care treatment plan. Orders Orders: Plan Detail Goals Decrease pain Increase ROM Follow Up 2 Weeks Coding Level of Care Code No Charge Diagnoses Segmental and somatic dysfunction of thoracic region M99.02 Segmental and somatic dysfunction of lumbar region M99.03 Segmental and somatic dysfunction of pelvic region M99.05 Additional Codes Procedures - Manipulation: 1-2 regions (91131) 11/15/17 1400 <Electronically signed by Sultana North D.C.> Date Sultana Brownigncolby Signature: Date (if applicable) CC: CHIROPRACTIC REPORT Observed: 11/10/2017 Status: F Source: GOPAL 4:16 PM [facility] [address] [place] [address] OFFICE VISIT Date of Service: 11/08/17 MR#: [id number] Acct: [id number] Name: DEVON BARAHONA Rep #: [id number] : 1960 Provider: S[facility]ana [facility] D.C. Age/Sex: 57/F Location: [facility] Status: Signed Intake Vital Signs11/08/17 Height 5 ft 3 in 11/08/17 Weight: 220 lb 11/08/17 Body Mass Index (BMI) 38.9 Intake Visit Reasons: Back pain Chief Complaint: back pain Is patient in pain?: Yes Allergies aloe vera Allergy (Verified 05/25/14 19:31) Other doxycycline Allergy (Verified 05/25/14 19:31) Other hydrocodone bitartrate [From Vicodin] Allergy (Verified 05/25/14 19:31) Upset Stomach oxycodone HCl [From Percocet] Allergy (Verified 05/25/14 19:31) Other propoxyphene HCl [From Darvon] Allergy (Verified 05/25/14 19:31) Vomiting Medications Acetaminophen with Codeine [Tylenol with Codeine #4 Tablet] 1 ea PO Q6H PRN PRN 05/20/14 [History Confirmed 05/24/14] Albuterol Aerosols [Ventolin Aerosols] 2.5 mg INHALATION Q6H PRN PRN 05/20/14 [History Confirmed 05/24/14] Cyclobenzaprine [Flexeril] 10 mg PO TID PRN PRN 05/20/14 [History Confirmed 05/24/14] Esomeprazole Mag Trihydrate [Nexium] 40 mg PO BID 05/20/14 [History Confirmed 05/24/14] Gabapentin [Gralise] 300 mg PO QHS 05/20/14 [History Confirmed 05/24/14] Linaclotide [Linzess] 290 mcg PO DAILY 05/20/14 [History Confirmed 05/24/14] Lorazepam [Ativan] 1 mg PO Q6H PRN PRN 05/20/14 [History Confirmed 05/24/14] Rosuvastatin Calcium [Crestor] 10 mg PO QHS 05/20/14 [History Confirmed 05/24/14] Ciprofloxacin [Cipro] 500 mg PO BID #10 tab 05/25/14 [Rx] Fluconazole [Diflucan] 150 mg PO X1 #3 tab 05/25/14 [Rx] Oxycodone HCl/Acetaminophen [Percocet 5-325] 1 - 2 tab PO Q4H PRN PRN #30 tab 05/25/14 [Rx] esomeprazole magnesium 20 mg capsule,delayed release 20 mg PO QDAY 11/08/17 [History Confirmed 11/08/17] lactobacillus combination no.8 3 billion cell capsule 3,000 mmu cells PO QDAY 11/08/17 [History Confirmed 11/08/17] rosuvastatin 10 mg tablet 10 mg PO ONCE 11/08/17 [History Confirmed 11/08/17] PFSH Medical History Acute asthma (Acute) Arthritis (Acute) Carpal tunnel syndrome (Acute) Environmental allergies (Acute) GERD (gastroesophageal reflux disease) (Acute) High cholesterol (Acute) High triglycerides (Acute) History Valvular Surgery (Acute) History of cancer of vulva (Acute) Hx TIA/stroke w/o resid (Acute) Hx of colon cancer, stage I (Acute) IBS (irritable bowel syndrome) (Acute) Sleep apnea (Acute) Surgical History History of bladder surgery (Acute) History of breast surgery (Acute) History of cataract surgery (Acute) History of cornea transplant (Acute) History of partial hysterectomy (Acute) Family History Other Alcoholism Anxiety Arthritis Asthma Breast cancer Cervical cancer Colon cancer Depression Heart disease High cholesterol Suicidal behavior Social History Smoking Status: Current every day smoker tobacco type: cigarettes quit status: not considering quitting alcohol intake: never substance use type: does not use what type of physical activity do you participate in: none HPI Back pain: Chief Complaint: R sided low back pain Visit Number: 1 Referral source: - Joel Barahona Details: DEVON BARAHONA is a 57 year old F who presents with R sided low back pain. She states that in 2010 she slipped in the shower causing severe low back pain, since then the pain has continued although she denies hearing any pop. The pain is described as sharp shooting, with burning, it does radiate into the upper R thigh. Bending, lifting, prolonged standing all cause increased pain rating it a 10/10 at its worst. The patient also complains of L sided groin pain that is a sharp burning sensation, though she denies any numbness or tingling. Currently Devon rates her pain a 4/10 and describes it as a deep tight ache radiating into the R upper thigh and L Groin. Onset: 07/19/10 Location: R low back and L groin Duration: constant Aggravating or associated factors: prolonged standing, bending, walking and lifting Relieving factors: Ice Pain Quality: aching, dull, burning, cramping, sharp, radiating Exam Musc General: Yes normal posture, normal gait, joint tenderness (T8, T9, L2, L3, L5, R SI jt.) and decreased ROM Thoracic/Lumbar Spine: thoracic and lumbar spine normal to inspection, Lasegue's sign positive on the right, pain with thoraco-lumbar ROM with forward flexion, with lateral flexion to the right and with lateral flexion to the left, paraspinal tenderness on the right greater than left, thoraco-lumbar ROM limited with forward flexion and with lateral flexion to the left, thoraco-lumbar spasm bilaterally in the lower lumbar Neuro General: alert, awake, oriented x3, gait normal, normal light touch, pain and propioception, no focal motor deficits, deep tendon reflexes 2+ bilaterally (lower extremity) Ortho Test CERVICAL THORACIC LUMBAR Kemps: Positive, Rig Valsalvas: Negative SLR: Negative Iliac Compression: Positive, Rig Office Procedures Chiropractic Treatments Procedures Manipulation: 3-4 regions (T10, L3, L5, RIL) Assessment AND Plan 1. Back pain M54.9 2. Segmental and somatic dysfunction of lumbar region M99.03 Orders Orders: 3. Segmental and somatic dysfunction of thoracic region M99.02 4. Segmental and somatic dysfunction of pelvic region M99.05 Plan Detail Additional Comments Reviewed previous imaging that patient brought with her. Lumbar rotation-ND. RIL:, LIL:PI. Decreased L5 disc height. Facet arthropathy at L4/L5. Goals Decrease pain Increase ROM Follow Up 1 Week Coding Level of Care Code Off vis,new,level 3 Diagnoses Back pain M54.9 Segmental and somatic dysfunction of lumbar region M99.03 Segmental and somatic dysfunction of thoracic region M99.02 Segmental and somatic dysfunction of pelvic region M99.05 Additional Codes Procedures - Manipulation: 3-4 regions (28991) 11/10/17 1616 <Electronically signed by Sultana North D.C.> Date Sultana Simskori Magana Signature: Date (if applicable) CC: XR LUMBAR 3V Observed: 10/31/2017 Status: F Source: RINARD AP/LAT/L5-S1 2:58 PM [facility] * * *Final Report* * * DATE OF EXAM: Oct 31 2017 2:58PM WOX [id number] - XR LUMBAR 3V AP/LAT/L5-S1 / PROCEDURE REASON: multiple diagnoses * * * * Physician Interpretation * * * * EXAM TITLE: XR LUMBAR 3V AP/LAT/L5-S1 EXAM DATE/TIME: 10/31/2017 2:58 PM COMPARISON: None. CLINICAL INDICATION/HISTORY: Dorsalgia TECHNIQUE: AP, lateral and cone down lateral views of the lumbar spine are presented. FINDINGS: There are five jbc-cmv-ghskmpe lumbar vertebra. No fracture or subluxations are noted. The disc spaces are well preserved. There is mild osteophyte formation. IMPRESSION: Lumbar spine mild degenerative changes. Knockout Machine Operator: ALEXX Transcribe Date/Time: Oct 31 2017 7:38P Dictated by : SUE MURRAY MD This examination was interpreted and the report reviewed and electronically signed by: SUE MURRAY MD on Oct 31 2017 7:39PM EST [id number] Observed: 10/31/2017 Status: COMPLETED Source: RINARD 2:57 PM [facility] HNO ID: [id number] Author: Yuli (Rt) Logan Linares Service: (none) Author Type: Fur Buyer Type: Progress Notes Filed: 10/31/2017 2:58 PM Note Text: Radiology Service Progress Note PATIENT NAME: Devon Barahona DATE OF SERVICE: October 31, 2017 TIME: 2:57 PM PATIENT IDENTITY VERIFICATION COMPLETED USING TWO (2) METHODS: Patient confirmed name verbally and Date of . PATIENT GENDER DATA: Female. status: : No status: NO. PATIENT RELEVANT IMPLANT DATA REVIEWED: Not Applicable RADIOLOGY DEPARTMENT: General X-ray: Exam(s) Completed: Spine X-Ray(s): Lumbar AP / LAT / L5-S1 PERIPHERAL IV DATA: Not applicable SIGNED BY: RT Ale October 31, 2017 2:57 PM PROGRESS Observed: 10/31/2017 Status: COMPLETED Source: RINARD 1:56 PM [facility] HNO ID: [id number] Author: Dayami Duggan Service: (none) Author Type: Physician Type: Progress Notes Filed: 10/31/2017 5:04 PM Note Text: Chief Complaint Patient presents with: Pain: right thigh HPI Devon Barahona is a 57 year old female who presents here today for pain. Pt has been having right thigh pain for 2 months, constant, burning sensation, waking her up at night. Had some rectal bleeding last week. She stated that once or twice a month she has blood when wiping. No blood in the stool. Has a crawling sensation to the right shoulder blade, no pain, off and for last a few months. It has become more constant. She has been doing therapy thorough chiropractor for 2 months, but has not had a lot of relief. Is going to see her 's chiropractor to get treatment but needs back x ray prior. Also set up to see Dr. Bharathi Sosa, asset specialist. She did PT in past for back which did not help. Past medical history, appointments, medications, allergies reviewed. Previous Medical History PAST MEDICAL HISTORY Diagnosis Date - Arthritis ribcage - Asthma - Bladder instability 03/17/2010 - COPD (chronic obstructive pulmonary disease) (HCC) - Esophagitis, unspecified - Family history of colon cancer 05/24/14 - Gastroesophageal reflux disease without esophagitis 01/29/2015 - GERD (gastroesophageal reflux disease) 03/17/2010 - Heme positive stool 05/24/14 - Nausea 05/24/14 - Obstructive sleep apnea - ALIYA (obstructive sleep apnea) 02/17/2011 - PMH - PAST MEDICAL HISTORY OF 1996 vulva cancer - Ulcer Previous Surgical History PAST SURGICAL HISTORY Procedure Laterality Date - BX OF BREAST; INCISIONAL Left 05/17/2017 - COLONOSCOPY 05/24/14 Repeat due 2017 - COLONOSCOPY 03/30/16 tubular adenoma, repeat in 3 years - DISCISSION,2ND CATARACT,LASER Right 10/14/2015 Yag Capsulotomy - EGD 05/24/14 - EGD W/[facility] SPECIMEN W/BX 04/17/10 - EXCISION MALIGNANT LESIONS,VUL 1997 Dr. Rehman. No recent F/U. in vulvar region - HEART CATHETERIZATION 04/2011 normal no CAD - MAMMO MAMMOGRAM 2009 [facility] - PAST SURGICAL HISTORY OF age 22 partial hysterectomy for DUB - PAST SURGICAL HISTORY OF left breast-lump removal - PAST SURGICAL HISTORY OF needle biopsy-right breast - x 3 - PAST SURGICAL HISTORY OF 11/27/2014 keratoplasty OS DMEK - PAST SURGICAL HISTORY OF 02/18/15 keratoplasty OD DMEK - REMV CATARACT EXTRACAP,INSERT LENS 11/22/12 OD Cataract Extraction with PC IOL - REMV CATARACT EXTRACAP,INSERT LENS OS 12/26/13 Cataract Extraction with PC IOL - REPAIR OF NASAL SEPTUM 1980s Septoplasty - SLING OPER STRES INCONTINENCE 11/26/10, 04/2011 [facility] [place] surgery Family History FAMILY HISTORY Problem Relation Age of Onset - Heart Mother chf at 89 - Alzheimer's Disease Mother - Cataract Mother - Blindness Sister - Cancer Sister lung cancer - Emphysema Sister - Psychiatry Brother - Strabismus Brother - Amblyopia Brother - Alcohol/Drug Sister - tuberculosis [OTHER] Sister - Diabetes Other Multiple both family members. Patient Allergies ALLERGIES Allergen Reactions - Aloe Vera Rash Causes bustillos/redness/blistering when applied topically. - Darvon [Propoxyphen* GI Upset, Vomiting - Doxycycline Other: See Comments Vaginal yeast infection. - Percocet [Oxycodone* Mental Status Change Visual hallucinations - Vicodin [Hydrocodon* GI Upset Current Medications Current Outpatient Prescriptions on File Prior to Visit: LORazepam (ATIVAN) 1 mg tablet Take 1 tablet by mouth every 6 hours as needed for up to 90 days. rosuvastatin (CRESTOR) 10 mg tablet Take 1 tablet by mouth daily at bedtime. multivitamin tablet Take 1 tablet by mouth once daily. COMPOUNDED PRESCRIPTION Assess CPAP unit settings, mask fit. Refill tubing, mask, filter, chin strap, supplies. albuterol sulfate 90 mcg/actuation aepb Inhale 2 Puffs as instructed every 6 hours as needed (wheezing or shortness of breath). ZOVIRAX 5 % crea APPLY TO THE AFFECTED AREA(S) FIVE TIMES DAILY. use for FOUR days with viral sores COMPOUNDED PRESCRIPTION Water pill with potassium, taking one daily lactobacillus comb no.10 (PROBIOTIC) 20 billion cell cap Take 1 capsule by mouth once daily. turmeric root extract 500 mg cap Take 1 capsule by mouth once daily. cholecalciferol, vitamin D3, 5,000 unit ODT Take 1 capsule by mouth once daily. aclidinium bromide (TUDORZA PRESSAIR) 400 mcg/actuation aepb Inhale 1 Inhalation as instructed twice daily. CPAP daily at bedtime. meloxicam (MOBIC) 15 mg tablet Take 1 tablet by mouth once daily. zolpidem (AMBIEN) 10 mg tab Take 1 tablet by mouth at bedtime as needed (insomnia) for up to 90 days. Hold to fill on 10/23/16 or after No current facility-administered medications on file prior to visit. Social History Social History Marital status: Spouse name: Years of education: Number of children: Social History Main Topics Smoking status: Current Every Day Smoker Packs/day: 0.50 Years: 35.00 Types: Cigarettes Start date: 03/13/1980 Smokeless status: Never Used Comment: Currently smoking 10-15 cigarettes daily, 04/22/16, rolls her own Alcohol use: No Drug use: No EXAM: BP 118/70 Pulse 70 Resp 16 Wt 100.2 kg (221 lb) BMI 39.15 kg/m2 General Appearance: Well appearing, alert, in no acute distress, well-hydrated, well nourished., Overweight. Back: tender on palpation to rhomboid muscles of right shoulder Health Maintenance List TETANUS due on 12/03/2020 MAMMOGRAM due on 04/29/2018 DIABETES SCREEN due on 09/01/2020 LIPID SCREEN due on 09/01/2022 ONE PNEUMOVAX PRIOR TO AGE 64 Completed INFLUENZA Completed HEPATITIS C SCREENING Completed Data reviewed None ASSESSMENT/PLAN: 1. DDD (degenerative disc disease), lumbar - ICD9: 722.52, ICD10: M51.36 (primary diagnosis) Sciatica Continue with Chiropractor - Xrays- see orders 2. Other chronic back pain - ICD9: 724.5, 338.29, ICD10: M54.9, G89.29 Chronic low back pain Continue with Chiropractor - Xrays- see orders 3. Sciatic nerve pain, right - ICD9: 724.3, ICD10: M54.[address] Bharathi Sosa Continue with Chiropractor 4. Muscle twitch - ICD9: 781.0, ICD10: R25.3 Recommend strecthing Follow up in November as scheduled. Dayami Duggan MD The documentation for this note was completed by Ruchi Mcdermott Ma acting as scribe for Dayami Duggan MD. October 31, 2017 1:56 PM. CNOV Observed: 10/31/2017 Status: COMPLETED Source: [place] 1:20 PM [facility] REPOSITORY Office Visit (FAMPWS) DEVON BARAHONA ([id number]) 1960 F Date Time Provider Department 10/31/17 1:20 PM DAYAMI DUGGAN During your visit today, we recorded the following information about you: Pulse Respiration Blood pressure Weight 70/minute 16/minute 118/70 100.2 kg Dayami Duggan MD 10/31/2017 5:04 PM Signed Chief Complaint Patient presents with: Pain: right thigh HPI Devon Barahona is a 57 year old female who presents here today for pain. Pt has been having right thigh pain for 2 months, constant, burning sensation, waking her up at night. Had some rectal bleeding last week. She stated that once or twice a month she has blood when wiping. No blood in the stool. Has a ANDquot;crawlingANDquot; sensation to the right shoulder blade, no pain, off and for last a few months. It has become more constant. She has been doing therapy thorough chiropractor for 2 months, but has not had a lot of relief. Is going to see her 's chiropractor to get treatment but needs back x ray prior. Also set up to see Dr. Bharathi Sosa, asset specialist. She did PT in past for back which did not help. Past medical history, appointments, medications, allergies reviewed. Previous Medical History PAST MEDICAL HISTORY Diagnosis Date - Arthritis ribcage - Asthma - Bladder instability 03/17/2010 - COPD (chronic obstructive pulmonary disease) (HCC) - Esophagitis, unspecified - Family history of colon cancer 05/24/14 - Gastroesophageal reflux disease without esophagitis 01/29/2015 - GERD (gastroesophageal reflux disease) 03/17/2010 - Heme positive stool 05/24/14 - Nausea 05/24/14 - Obstructive sleep apnea - ALIYA (obstructive sleep apnea) 02/17/2011 - PMH - PAST MEDICAL HISTORY OF 1996 vulva cancer - Ulcer Previous Surgical History PAST SURGICAL HISTORY Procedure Laterality Date - BX OF BREAST; INCISIONAL Left 05/17/2017 - COLONOSCOPY 05/24/14 Repeat due 2016 - COLONOSCOPY 03/30/16 tubular adenoma, repeat in 3 years - DISCISSION,2ND CATARACT,LASER Right 10/14/2015 Yag Capsulotomy - EGD 05/24/14 - EGD [facility] SPECIMEN W/BX 04/17/10 - EXCISION MALIGNANT LESIONS,VUL 1996 Dr. Rehman. No recent F/U. in vulvar region - HEART CATHETERIZATION 04/2011 normal no CAD - MAMMO MAMMOGRAM 2009 [facility] - PAST SURGICAL HISTORY OF age 22 partial hysterectomy for DUB - PAST SURGICAL HISTORY OF left breast-lump removal - PAST SURGICAL HISTORY OF needle biopsy-right breast - x 3 - PAST SURGICAL HISTORY OF 11/27/2014 keratoplasty OS DMEK - PAST SURGICAL HISTORY OF 02/18/15 keratoplasty OD DMEK - REMV CATARACT EXTRACAP,INSERT LENS 11/22/12 OD Cataract Extraction with PC IOL - REMV CATARACT EXTRACAP,INSERT LENS OS 12/26/13 Cataract Extraction with PC IOL - REPAIR OF NASAL SEPTUM Septoplasty - SLING OPER STRES INCONTINENCE 11/26/10, 04/2011 [facility] [place] [facility] Family History FAMILY HISTORY Problem Relation Age of Onset - Heart Mother chf at 89 - Alzheimer's Disease Mother - Cataract Mother - Blindness Sister - Cancer Sister lung cancer - Emphysema Sister - Psychiatry Brother - Strabismus Brother - Amblyopia Brother - Alcohol/Drug Sister - tuberculosis [OTHER] Sister - Diabetes Other Multiple both family members. Patient Allergies ALLERGIES Allergen Reactions - Aloe Vera Rash Causes bustillos/redness/blistering when applied topically. - Darvon [Propoxyphen* GI Upset, Vomiting - Doxycycline Other: See Comments Vaginal yeast infection. - Percocet [Oxycodone* Mental Status Change Visual hallucinations - Vicodin [Hydrocodon* GI Upset Current Medications Current Outpatient Prescriptions on File Prior to Visit: LORazepam (ATIVAN) 1 mg tablet Take 1 tablet by mouth every 6 hours as needed for up to 90 days. rosuvastatin (CRESTOR) 10 mg tablet Take 1 tablet by mouth daily at bedtime. multivitamin tablet Take 1 tablet by mouth once daily. COMPOUNDED PRESCRIPTION Assess CPAP unit settings, mask fit. Refill tubing, mask, filter, chin strap, supplies. albuterol sulfate 90 mcg/actuation aepb Inhale 2 Puffs as instructed every 6 hours as needed (wheezing or shortness of breath). ZOVIRAX 5 % crea APPLY TO THE AFFECTED AREA(S) FIVE TIMES DAILY. use for FOUR days with viral sores COMPOUNDED PRESCRIPTION Water pill with potassium, taking one daily lactobacillus comb no.10 (PROBIOTIC) 20 billion cell cap Take 1 capsule by mouth once daily. turmeric root extract 500 mg cap Take 1 capsule by mouth once daily. cholecalciferol, vitamin D3, 5,000 unit ODT Take 1 capsule by mouth once daily. aclidinium bromide (TUDORZA PRESSAIR) 400 mcg/actuation aepb Inhale 1 Inhalation as instructed twice daily. CPAP daily at bedtime. meloxicam (MOBIC) 15 mg tablet Take 1 tablet by mouth once daily. zolpidem (AMBIEN) 10 mg tab Take 1 tablet by mouth at bedtime as needed (insomnia) for up to 90 days. Hold to fill on 10/23/16 or after No current facility-administered medications on file prior to visit. Social History Social History Marital status: Spouse name: Years of education: Number of children: Social History Main Topics Smoking status: Current Every Day Smoker Packs/day: 0.50 Years: 35.00 Types: Cigarettes Start date: 03/13/1980 Smokeless status: Never Used Comment: Currently smoking 10-15 cigarettes daily, 04/22/16, rolls her own Alcohol use: No Drug use: No EXAM: BP 118/70 Pulse 70 Resp 16 Wt 100.2 kg (221 lb) BMI 39.15 kg/m2 General Appearance: Well appearing, alert, in no acute distress, well-hydrated, well nourished., Overweight. Back: tender on palpation to rhomboid muscles of right shoulder Health Maintenance List TETANUS due on 12/03/2020 MAMMOGRAM due on 04/29/2018 DIABETES SCREEN due on 09/01/2020 LIPID SCREEN due on 09/01/2022 ONE PNEUMOVAX PRIOR TO AGE 64 Completed INFLUENZA Completed HEPATITIS C SCREENING Completed Data reviewed None ASSESSMENT/PLAN: 1. DDD (degenerative disc disease), lumbar - ICD9: 722.52, ICD10: M51.36 (primary diagnosis) Sciatica Continue with Chiropractor - Xrays- see orders 2. Other chronic back pain - ICD9: 724.5, 338.29, ICD10: M54.9, G89.29 Chronic low back pain Continue with Chiropractor - Xrays- see orders 3. Sciatic nerve pain, right - ICD9: 724.3, ICD10: M54.[address] Bharathi Sosa Continue with Chiropractor 4. Muscle twitch - ICD9: 781.0, ICD10: R25.3 Recommend strecthing Follow up in November as scheduled. Dayami Duggan MD The documentation for this note was completed by Ruchi Mcdermott Ma acting as scribe for Dayami Duggan MD. October 31, 2017 1:56 PM. Referring Provider: SELF [[id number]] Allergies As of Date: 10/31/2017 Noted Allergy Reaction ALOE VERA 03/26/2010 2 - Rash Comments: Causes bustillos/redness/blistering when applied topically. DARVON (PROPOXYPHENE HCL) 03/17/2010 8 - GI Upset 11 - Vomiting DOXYCYCLINE 09/08/2012 14 - Other: See Comments Comments: Vaginal yeast infection. PERCOCET (OXYCODONE-ACETAMINOPHEN)03/17/2010 1 - Mental Status Change Comments: Visual hallucinations VICODIN (HYDROCODONE-ACETAMINOPHE*03/17/2010 8 - GI Upset Date Reviewed: 10/31/2017 Reviewed by: Ruchi Mdcermott Ma - Fully Assessed Reason for Visit: Pain [78] Cmt: right thigh Primary Visit Diagnosis:DDD (degenerative disc disease), lumbar [M51.36] Other Visit Diagnoses:Other chronic back pain [M54.9, G89.29] Sciatic nerve pain, right [M54.31] Muscle twitch [R25.3] Order(s):XR LUMBAR GENERAL 3V AP/LAT/L5-S1 [[id number]] Order #: [id number] FUTURE Prescriptions as of 10/31/2017 Sig: LORAZEPAM 1 MG TABLET Take 1 tablet by mouth every * ROSUVASTATIN 10 MG TABLET Take 1 tablet by mouth daily * MULTIVITAMIN TABLET Take 1 tablet by mouth once d* COMPOUNDED PRESCRIPTION Assess CPAP unit settings, ma* ALBUTEROL SULFATE 90 MCG/ACTU* Inhale 2 Puffs as instructed * ZOVIRAX 5 % TOPICAL CREAM APPLY TO THE AFFECTED AREA(S)* COMPOUNDED PRESCRIPTION Water pill with potassium, ta* LACTOBACILLUS COMBINATION NO.* Take 1 capsule by mouth once * TURMERIC ROOT EXTRACT 500 MG * Take 1 capsule by mouth once * CHOLECALCIFEROL (VITAMIN D3) * Take 1 capsule by mouth once * ACLIDINIUM BROMIDE 400 MCG/AC* Inhale 1 Inhalation as instru* CPAP daily at bedtime. MELOXICAM 15 MG TABLET Take 1 tablet by mouth once d* ZOLPIDEM 10 MG TABLET Take 1 tablet by mouth at bed* Problem List As Of Date 10/31/2017 Noted Resolved Arthritis [M19.90] INVALID FOR* Back pain [M54.9] INVALID FOR*03/23/2016 More... Bladder instability [N32.89] INVALID FOR*03/20/2014 Asthma [J45.909] INVALID FOR*06/06/2012 Acute gastritis without mention of hemorrhage [*INVALID FOR*05/04/2012 ALIYA (obstructive sleep apnea) [G47.33] INVALID FOR* More... COPD (chronic obstructive pulmonary disease) [J*INVALID FOR* Other and unspecified hyperlipidemia [E78.5] INVALID FOR* Lumbar strain [S39.012A] INVALID FOR*05/04/2012 Lumbar spondylosis [M47.816] INVALID FOR*05/04/2012 Lumbar radiculopathy [M54.16] INVALID FOR*05/04/2012 Lumbar disc displacement without myelopathy [M5*INVALID FOR*05/04/2012 Low back pain [M54.5] INVALID FOR*03/23/2016 DDD (degenerative disc disease), lumbar [M51.36]INVALID FOR* Globus syndrome [F45.8] INVALID FOR*03/20/2014 Rhinitis [J31.0] INVALID FOR*05/04/2012 Laryngitis [J04.0] INVALID FOR*05/04/2012 Anxiety [F41.9] INVALID FOR* Scars [L90.5] INVALID FOR*05/04/2012 Hirsutism [L68.0] INVALID FOR*05/04/2012 Emphysema [J43.9] INVALID FOR* Back pain, chronic [M54.9, G89.29] INVALID FOR* Scalp lesion [L98.9] INVALID FOR*03/20/2014 Vulvar itching [L29.2] INVALID FOR*03/20/2014 Lens replaced by other means [Z96.1] INVALID FOR*03/23/2016 Insomnia [G47.00] INVALID FOR* Irritable bowel [K58.9] INVALID FOR* Mucopurulent chronic bronchitis (HCC) [J41.1] INVALID FOR* Gastroesophageal reflux disease without esophag*INVALID FOR* Cornea replaced by transplant [Z94.7] INVALID FOR*03/23/2016 Chronic pain of right knee [M25.561, G89.29] INVALID FOR* After-cataract obscuring vision, left [H26.492] INVALID FOR* Pseudophakia of both eyes [Z96.1] INVALID FOR* History of Descemet membrane endothelial kerato*INVALID FOR* More... Disposition: Return if symptoms worsen or fail to improve. Follow-up and Disposition History Recorded Encounter Status:Closed by DAYAMI DUGGAN MD on 10/31/17 ED NOTE Observed: 10/26/2017 Status: COMPLETED Source: [place] 10:49 AM [facility] OTHER [place] REPOSITORY HNO ID: [id number] Author: Venita (Rn) CÉSAR Crawford Service: Emergency Medicine Author Type: Registered Nurse Type: ED Notes Filed: 10/26/2017 10:50 AM Note Text: Discharge instructions reviewed with patient via teachback. Pt awake and alert, respirations stable. Pt verbalizes understanding. No further questions for this RN. XR CHEST 1V FRONTAL Observed: 10/26/2017 Status: F Source: [facility] 10:35 AM [facility] OTHER CAMPUS REPOSITORY * * *Final Report* * * DATE OF EXAM: Oct 26 2017 10:35AM MDX [id number] - XR CHEST 1V FRONTAL PORT / PROCEDURE REASON: Foreign body (FB) in soft tissue * * * * Physician Interpretation * * * * EXAMINATION: CHEST RADIOGRAPH (PORTABLE SINGLE VIEW AP) Exam Date/Time: 10/26/2017 10:35 AM Indication: Foreign body (FB) in soft tissue MQ: XCP_4 Comparison: Two view chest x-ray: 01-24-15 RESULTS: Lines, tubes, and devices: None. Lung parenchyma and pleura: Hazy attenuation of bilateral lower lungs appears to be related to prominent overlying soft tissues of chest wall. No focal area of consolidation, pleural fluid or pneumothorax. Thoracic inlet, heart, and mediastinum: Prominent left epicardial fat pad again noted. Heart not enlarged. Mediastinum and pulmonary vessels unremarkable. Other: Upper abdomen unremarkable. No free air beneath diaphragm. No fracture. No radiopaque foreign body noted. IMPRESSION: No evidence of acute abnormality. No radiopaque foreign body noted. Knockout Machine Operator: PSCB Transcribe Date/Time: Oct 26 2017 10:36A Dictated by : JANESSA GAUTAM MD This examination was interpreted and the report reviewed and electronically signed by: JANESSA GAUTAM MD on Oct 26 2017 10:37AM EST [id number] ED PROV NOTE Observed: 10/26/2017 Status: COMPLETED Source: [place] 10:01 AM [facility] OTHER CAMPUS REPOSITORY HNO ID: [id number] Author: Karen Hayes (Pa) Service: (none) Author Type: Physician Lens Block Gauger Type: ED Provider Notes Filed: 10/26/2017 10:46 AM Note Text: ED Provider Note Patient Name: Devon Barahona SERVICE DATE: 10/26/17 History CC: worm crawling in skin HPI Comments: 57-year-old female, with a history of COPD, asthma, esophagitis, peptic ulcer disease, presents for sensation of a worm in her right shoulder for the last 6 months. She states that she can feel this crawling sensation intermittently from her right shoulder blade extending into her neck. There is no pain associated. She has convinced herself that she has a worm in her skin and/or lung. Patient does not work for [employer], has no GI symptoms, no shortness of breath, no chest pain or hemoptysis. She sees her PCP in 5 days but felt that she couldn't wait that long and wanted to be evaluated today History provided by: Patient PAST MEDICAL HISTORY Diagnosis Date - Arthritis ribcage - Asthma - Bladder instability 03/17/2010 - COPD (chronic obstructive pulmonary disease) (HCC) - Esophagitis, unspecified - Family history of colon cancer 05/24/14 - Gastroesophageal reflux disease without esophagitis 01/29/2015 - GERD (gastroesophageal reflux disease) 03/17/2010 - Heme positive stool 05/24/14 - Nausea 05/24/14 - Obstructive sleep apnea - ALIYA (obstructive sleep apnea) 02/17/2011 - PMH - PAST MEDICAL HISTORY OF 1996 vulva cancer - Ulcer PAST SURGICAL HISTORY Procedure Laterality Date - BX OF BREAST; INCISIONAL Left 05/17/2017 - COLONOSCOPY 05/24/14 Repeat due 2016 - COLONOSCOPY 03/30/16 tubular adenoma, repeat in 3 years - DISCISSION,2ND CATARACT,LASER Right 10/14/2015 Yag Capsulotomy - EGD 05/24/14 - EGD W/[facility] SPECIMEN W/BX 04/17/10 - EXCISION MALIGNANT LESIONS,VUL 1996 Dr. Rehman. No recent F/U. in vulvar region - HEART CATHETERIZATION 04/2011 normal no CAD - MAMMO MAMMOGRAM 2009 [facility] - PAST SURGICAL HISTORY OF age 22 partial hysterectomy for DUB - PAST SURGICAL HISTORY OF left breast-lump removal - PAST SURGICAL HISTORY OF needle biopsy-right breast - x 3 - PAST SURGICAL HISTORY OF 11/27/2014 keratoplasty OS DMEK - PAST SURGICAL HISTORY OF 02/18/15 keratoplasty OD DMEK - REMV CATARACT EXTRACAP,INSERT LENS 11/22/12 OD Cataract Extraction with PC IOL - REMV CATARACT EXTRACAP,INSERT LENS OS 12/26/13 Cataract Extraction with PC IOL - REPAIR OF NASAL SEPTUM Septoplasty - SLING OPER STRES INCONTINENCE 11/26/10, 04/2011 [facility] surgery FAMILY HISTORY Problem Relation Age of Onset - Heart Mother chf at 89 - Alzheimer's Disease Mother - Cataract Mother - Blindness Sister - Cancer Sister lung cancer - Emphysema Sister - Psychiatry Brother - Strabismus Brother - Amblyopia Brother - Alcohol/Drug Sister - tuberculosis [OTHER] Sister - Diabetes Other Multiple both family members. Social History Social History Main Topics - Smoking status: Current Every Day Smoker Packs/day: 0.50 Years: 35.00 Types: Cigarettes Start date: 03/13/1980 - Smokeless tobacco: Never Used Comment: Currently smoking 10-15 cigarettes daily, 04/22/16, rolls her own - Alcohol use No - Drug use: No - Sexual activity: Not Asked Comment: Patient not asked at this visit, 06/03/2017 ALLERGIES Allergen Reactions - Aloe Vera Rash Causes bustillos/redness/blistering when applied topically. - Darvon [Propoxyphen* GI Upset, Vomiting - Doxycycline Other: See Comments Vaginal yeast infection. - Percocet [Oxycodone* Mental Status Change Visual hallucinations - Vicodin [Hydrocodon* GI Upset Review of Systems Constitutional: Negative for chills and fever. HENT: Negative. Eyes: Negative for photophobia and visual disturbance. Respiratory: Negative for cough and shortness of breath. Cardiovascular: Negative for chest pain. Gastrointestinal: Negative for abdominal pain, diarrhea, nausea and vomiting. Musculoskeletal: Negative. Skin: Negative for rash and wound. Sensation of crawling skin to right shoulder Neurological: Negative. Psychiatric/Behavioral: Negative. Physical Exam BP 154/89 Pulse 84 Temp (Src) 98.3 (Oral) Resp 16 Ht 5' 3 (1.60m) Wt 220 lb (99.8kg) SpO2 97% BMI 38.98 kg/(m2). Physical Exam Constitutional: She is oriented to person, place, and time. She appears well-developed and well-nourished. No distress. HENT: Head: Normocephalic and atraumatic. Eyes: Conjunctivae are normal. Neck: Normal range of motion. Neck supple. Cardiovascular: Normal rate, regular rhythm and normal heart sounds. Pulmonary/Chest: Effort normal and breath sounds normal. No respiratory distress. She has no wheezes. She has no rales. Abdominal: Soft. Bowel sounds are normal. There is no tenderness. Musculoskeletal: Normal range of motion. Neurological: She is alert and oriented to person, place, and time. No cranial nerve deficit. Skin: No rash noted. No erythema. Patient skin without any rash, erythema, warmth. I'm unable to reproduce the sensation. She does not have the sensation currently Psychiatric: She has a normal mood and affect. Nursing note and vitals reviewed. Diagnostic Testing CXR: Without abnormality such as infiltrate, effusion or cardiomegaly. There is no foreign body seen Procedures-none Medical Decision Making / ED Course 10:04 AM Patient presents to the ED with a 6 month sensation of a worm in her right shoulder. It is giving her the sensation that there is something crawling in her shoulder. Nothing has really changed today she just is getting tired of the sensation and wanted to be evaluated. She sees her PCP in 3 or 4 days. No other associated symptoms. On examination there is no cutaneous findings. Lung sounds are clear. She does not feel the sensation currently. 10:45 AM patient presented to the ED for the sensation of a warm crawling under her right shoulder. Her chest x-ray was normal. Her vital signs are stable. This is been going on for several and I discussed with her that usually if something is been going on chronically we are unable to find a solution in the ED, specifically when it is a paresthesia. Her lungs look fine on chest x-ray. She sees her PCP in 4 days. I will also give her follow-up with infectious disease. She is frustrated and tearful. However she does understand her limitations and the ED. She is discharged home ED Course Encounter Diagnosis ICD-10-CM 1. Formication R20.2 Plan The Patient was DISCHARGED: Counseled patient regarding radiology results AND suspected diagnosis AND need for follow-up. Discharged home with verbal and written instructions. They were instructed to return as needed for persistent or worsening symptoms or any new concerns. Condition at time of disposition: stable SIGNATURE: OXANA Ceballos (Pa) 10/26/17 1046 ED NOTE Observed: 10/26/2017 Status: COMPLETED Source: [place] 9:35 AM [facility] OTHER CAMPUS REPOSITORY HNO ID: [id number] Author: Aracelis Michele) CÉSAR Murdock Service: (none) Author Type: Registered Nurse Type: ED Notes Filed: 10/26/2017 9:36 AM Note Text: Patient presents with c/o worm under her skin in her upper back on right side-by shoulder blade that itches PROGRESS Observed: 09/12/2017 Status: COMPLETED Source: [place] 2:49 PM [facility] REPOSITORY HNO ID: [id number] Author: Bernard Guthrie Service: (none) Author Type: Physician Type: Progress Notes Filed: 09/12/2017 2:51 PM Note Text: Previous patient of mine that I managing for knee pain comes in with what she is complaining of bilateral hip pain. She's been managed by a chiropractor for the last few years with no improvement. She's been told that her legs are not the same length . She is not taking any anti-inflammatories and not done any therapy. She denies any groin pain. When asked to point to location of her pain she points to the region of the sciatic notch posteriorly. She complains of pain that occasionally radiates down to her foot and also causes numbness down both legs. She's only taken herbal medication. ROS Musculoskeletal: See history of present illness. Neurological: + numbness and tingling in upper or lower extremities Social History Substance Use Topics - Smoking status: Current Every Day Smoker Packs/day: 1.00 Years: 35.00 Types: Cigarettes Start date: 03/13/1980 - Smokeless tobacco: Never Used Comment: Currently smoking 10-15 cigarettes daily, 04/22/16, rolls her own - Alcohol use No Current Outpatient Prescriptions: zolpidem (AMBIEN) 10 mg tab Take 1 tablet by mouth at bedtime as needed (insomnia) for up to 90 days. Hold to fill on 10/23/16 or after LORazepam (ATIVAN) 1 mg tablet Take 1 tablet by mouth every 6 hours as needed for up to 90 days. rosuvastatin (CRESTOR) 10 mg tablet Take 1 tablet by mouth daily at bedtime. multivitamin tablet Take 1 tablet by mouth once daily. COMPOUNDED PRESCRIPTION Assess CPAP unit settings, mask fit. Refill tubing, mask, filter, chin strap, supplies. albuterol sulfate 90 mcg/actuation aepb Inhale 2 Puffs as instructed every 6 hours as needed (wheezing or shortness of breath). ZOVIRAX 5 % crea APPLY TO THE AFFECTED AREA(S) FIVE TIMES DAILY. use for FOUR days with viral sores COMPOUNDED PRESCRIPTION Water pill with potassium, taking one daily lactobacillus comb no.10 (PROBIOTIC) 20 billion cell cap Take 1 capsule by mouth once daily. turmeric root extract 500 mg cap Take 1 capsule by mouth once daily. cholecalciferol, vitamin D3, 5,000 unit ODT Take 1 capsule by mouth once daily. aclidinium bromide (TUDORZA PRESSAIR) 400 mcg/actuation aepb Inhale 1 Inhalation as instructed twice daily. CPAP daily at bedtime. meloxicam (MOBIC) 15 mg tablet Take 1 tablet by mouth once daily. No current facility-administered medications for this visit. Examination: 57-year-old female no acute distress. Alert and oriented times 3. 5 foot 3 inches tall 220 pounds. Examination of both legs reveals positive straight leg raise on the left at 45? and on the right at 60?. Muscle strength is 5 plus out of 5 plus to the lower extremities and deep tendon reflexes were not able to be elicited for both the patellar tendon and Achilles tendon on both legs. No groin pain whatsoever with log roll in either leg. Radiologic review: X-rays of both hips ordered by means my interpretation do not reveal any skeletal abnormalities in the hip joint. Clinical impression: Sciatica both legs. Patient has a classic signs of sciatica not hip involvement. We explained the difference to the patient and have referred [facility] for further management. She was also given a prescription for molded 15 milligrams per day. This note was partially generated using [employer] voice recognition system and as such may contain grammatical or word errors PROGRESS Observed: 09/12/2017 Status: COMPLETED Source: [place] 1:21 PM CLINIC OTHER CAMPUS REPOSITORY O ID: [id number] Author: Rae ShepardCt) JANE Almanza Service: (none) Author Type: Clinical Fur Buyer Type: Progress Notes Filed: 09/12/2017 1:22 PM Note Text: NAME:Devon Barahona DATE: September 12, 2017 [facility]#: [id number] Pelvis X-Ray and Hip X-Ray COMPLETED TECH ID SIGN: RAE ALMANZA XR HIP 3V PELV+ Observed: 09/12/2017 Status: F Source: RIN[place] AP/LAT LT 1:05 PM CLINIC OTHER CAMPUS REPOSITORY * * *Final Report* * * DATE OF EXAM: Sep 12 2017 1:05PM [place] [id number] - XR HIP 3V PELV+ AP/LAT LT / PROCEDURE REASON: M25.552-Pain in left hip * * * * Physician Interpretation * * * * Pelvis and left hip HISTORY: Indication: Pain in left hip TECHNIQUE: Images: XR HIP 3V PELV+ AP/LAT LT Comparison: None. RESULT: Findings: Film is underpenetrated due to patient's body habitus Pelvis: No fractures or dislocations are seen. Moderate narrowing of both hip joints. Left hip: No fractures or dislocations are seen. IMPRESSION: Moderate narrowing both hip joints. Knockout Machine Operator: ALEXX Transcribe Date/Time: Sep 12 2017 2:02P Dictated by : CINDY DURBIN DO This examination was interpreted and the report reviewed and electronically signed by: CINDY DURBIN DO on Sep 12 2017 4:33PM EST [id number] COMP METABOLIC PANEL Collected: 09/01/2017 Status: F Source: [place] 2:21 PM [facility] REPOSITORY TYPE CODE TESTS RESULT OUT OF REFERENCE UNITS RANGE LAB TP 6.3-8.0 g/dL Protein, Total 7.1 LAB ALB 3.9-4.9 g/dL Albumin 4.3 LAB CA 8.5-10.2 mg/dL Calcium, Total 9.4 LAB TBIL 0.2-1.3 mg/dL Bilirubin, Total 1.0 LAB ALKP 32-117 U/L Alkaline Phosphatase 111 LAB AST 13-35 U/L AST 17 LAB GLU 74-99 mg/dL Glucose 77 Result Comment: The [place] Diabetes Association (ADA) provides guidance for cutoff values for fasting glucose and random glucose. The ADA defines fasting as no caloric intake for at least 8 hours. Fas ting plasma glucose results between 100 to 125 mg/dL indicate increased risk for diabetes (prediabetes). Fasting plasma glucose results greater than or equal to 126 mg/dL meet the criteria for diagnosis of diabetes. In the absence of unequivocal hyperglycemia, results should be confirmed by repeat testing. In a patient with classic symptoms of hyperglycemia or hyperglycemic crisis, random plasma glucose results greater than or equal to 200 mg/dL meet the criteria for diagnosis of diabetes. Reference: Standards of Medical Care in Diabetes 2016, [place] Diabetes Association. Diabetes Care. 2016.39(Suppl 1). LAB BUN 7-21 mg/dL BUN 15 LAB CRET 0.58-0.96 mg/dL Creatinine 0.77 LAB NA 136-144 mmol/L Sodium 140 LAB K 3.7-5.1 mmol/L Potassium 4.1 LAB CL 97-105 mmol/L Chloride 103 LAB CO2 22-30 mmol/L CO2 23 LAB AGAP 9-18 mmol/L Anion Gap 14 LAB ALT 7-38 U/L ALT 14 LAB GFRAA eGFR- Amer. >60 LAB GFRNAA . eGFR-All Other Races >60 Result Comment: eGFR (Estimated GFR) Units of measure: mL/min/1.73 meters squared eGFR is derived from the reexpressed MDRD Study equation using the following parameters: serum creatinine, age, gender and race. The creatinine assay has been calibrated to be traceable to IDMS. An eGFR <60 mL/min/1.73m2 for >3 months is consistent with chronic kidney disease. Refer to KDOQI guidelines for clinical interpretation. In patients with unstable renal function, e.g. those with acute kidney injury, the eGFR may not accurately reflect actual GFR. Performed By: #### LIPB, CMP #### [facility] [address] [place], [place] [address] LIPID PANEL, BASIC Collected: 09/01/2017 Status: F Source: [place] 2:21 PM [facility] REPOSITORY TYPE CODE TESTS RESULT OUT OF REFERENCE UNITS RANGE LAB CHOL <200 mg/dL Cholesterol 166 Result Comment: <200 mg/dL, Desirable 200-239 mg/dL, Borderline high >239 mg/dL, High LAB TRIGLY <150 mg/dL Triglyceride 117 Result Comment: <150 mg/dL, Normal 150-199 mg/dL, Borderline high 200-499 mg/dL, High >499 mg/dL, Very high LAB HDL >39 mg/dL HDL-Cholesterol 46 Result Comment: 40-59 mg/dL, Acceptable >59 mg/dL, High: Negative risk factor for coronary heart disease <40 mg/dL, Low: Positive risk factor for coronary heart disease LAB LDL <100 mg/dL LDL-Cholesterol 97 Result Comment: <100 mg/dL, Optimal 100-129 mg/dL, Near optimal/above optimal 130-159 mg/dL, Borderline high 160-189 mg/dL, High >189 mg/dL, Very high Secondary prevention optimal LDL Cholesterol levels are recommended to be < 70 mg/dL LAB NONHDL <130 mg/dL Non HDL Cholesterol 120 Result Comment: <130 mg/dL, Optimal 130-159 mg/dL, Near optimal/above optimal 160-189 mg/dL, Borderline high 190-219 mg/dL, High >219 mg/dL, Very high Secondary prevention optimal non HDL Cholesterol levels are recommended to be < 100 mg/dL LAB FT hrs Fasting Time 19 LAB VLDL <30 mg/dL VLDL Cholesterol 23 LAB TCHDL <5.10 TC:HDL Ratio 3.61 LAB LDLHDL <2.54 LDL:HDL Ratio 2.11 Result Comment: Reference: 1. National Cholesterol Education Program ATP III Guideline At-A-Glance Quick Desk Reference: National Heart, Lung, and Blood [place]. National Institutes of Health. 2001: NIH Publication No. 01-3305. 2. An International Atherosclerosis Society position paper: global recommendations for the management of dyslipidemia: executive summary, Atherosclerosis. 2014: 232(2):410-413. Performed By: #### LIPB, CMP #### [facility] [address], [place] [address] PROGRESS Observed: 09/01/2017 Status: COMPLETED Source: [place] 1:20 PM [facility] REPOSITORY HNO ID: [id number] Author: Dayami Duggan Service: (none) Author Type: Physician Type: Progress Notes Filed: 09/01/2017 3:13 PM Note Text: Chief Complaint Patient presents with: Follow Up HPI Devon Barahona is a 56 year old female who presents here today for 4 month follow up. Smokes half ppd, rolling her own cigarettes, is a smoker as well. Pt has COPD, controlled with the TUDORZA PRESSAIR inhaler and albuterol inhaler. ALIYA: uses CPAP at night. Hyperlipidemia: is taking Crestor 10 mg daily. Has not been watching diet or exercising. Anxiety: is taking Ativan 1 mg, 3-4 tablets a day. Has been having a lot of stress, was sick with pneumonia and her dog has been sick. Insomnia: is taking Ambien 10 mg at bedtime. Pt has been seeing a Chiropractor Dr. Covarrubias who stated that her left leg is off by 1/4 inch. Pt stated she would like to get an opinion from Ortho. Arthritis: pt states that she has a lot of pain and a knot on the lower sternum. She stated that she does not want anyone to do chest compression for fear of them breaking her bones. Past medical history, appointments, medications, allergies reviewed. Previous Medical History PAST MEDICAL HISTORY Diagnosis Date - Arthritis ribcage - Asthma - Bladder instability 03/17/2010 - COPD (chronic obstructive pulmonary disease) (HCC) - Esophagitis, unspecified - Family history of colon cancer 05/24/14 - Gastroesophageal reflux disease without esophagitis 01/29/2015 - GERD (gastroesophageal reflux disease) 03/17/2010 - Heme positive stool 05/24/14 - Nausea 05/24/14 - Obstructive sleep apnea - ALIYA (obstructive sleep apnea) 02/17/2011 - PMH - PAST MEDICAL HISTORY OF 1996 vulva cancer - Ulcer Previous Surgical History PAST SURGICAL HISTORY Procedure Laterality Date - BX OF BREAST; INCISIONAL Left 05/17/2017 - COLONOSCOPY 05/24/14 Repeat due 2016 - COLONOSCOPY 03/30/16 tubular adenoma, repeat in 3 years - DISCISSION,2ND CATARACT,LASER Right 10/14/2015 Yag Capsulotomy - EGD 05/24/14 [facility] 04/17/10 - EXCISION MALIGNANT LESIONS,VUL 1996 Dr. Rehman. No recent F/U. in vulvar region - HEART CATHETERIZATION 04/2011 normal no CAD - MAMMO MAMMOGRAM 2009 [facility] - PAST SURGICAL HISTORY OF age 22 partial hysterectomy for DUB - PAST SURGICAL HISTORY OF left breast-lump removal - PAST SURGICAL HISTORY OF needle biopsy-right breast - x 3 - PAST SURGICAL HISTORY OF 11/27/2014 keratoplasty OS DMEK - PAST SURGICAL HISTORY OF 02/18/15 keratoplasty OD DMEK - REMV CATARACT EXTRACAP,INSERT LENS 11/22/12 OD Cataract Extraction with PC IOL - REMV CATARACT EXTRACAP,INSERT LENS OS 12/26/13 Cataract Extraction with PC IOL - REPAIR OF NASAL SEPTUM 1980s Septoplasty - SLING OPER STRES INCONTINENCE 11/26/10, 04/2011 [facility] [place] surgery Family History FAMILY HISTORY Problem Relation Age of Onset - Heart Mother chf at 89 - Alzheimer's Disease Mother - Cataract Mother - Blindness Sister - Cancer Sister lung cancer - Emphysema Sister - Psychiatry Brother - Strabismus Brother - Amblyopia Brother - Alcohol/Drug Sister - tuberculosis [OTHER] Sister - Diabetes Other Multiple both family members. Patient Allergies ALLERGIES Allergen Reactions - Aloe Vera Rash Causes bustillos/redness/blistering when applied topically. - Darvon [Propoxyphen* GI Upset, Vomiting - Doxycycline Other: See Comments Vaginal yeast infection. - Percocet [Oxycodone* Mental Status Change Visual hallucinations - Vicodin [Hydrocodon* GI Upset Current Medications Current Outpatient Prescriptions on File Prior to Visit: LORazepam (ATIVAN) 1 mg tablet TAKE 1 TABLET BY MOUTH EVERY 6 HOURS NEEDED for up to 30 days zolpidem (AMBIEN) 10 mg tab Take 1 tablet by mouth at bedtime as needed (insomnia) for up to 90 days. Hold to fill on 10/23/16 or after multivitamin tablet Take 1 tablet by mouth once daily. rosuvastatin (CRESTOR) 10 mg tablet Take 1 tablet by mouth daily at bedtime. COMPOUNDED PRESCRIPTION Assess CPAP unit settings, mask fit. Refill tubing, mask, filter, chin strap, supplies. albuterol sulfate 90 mcg/actuation aepb Inhale 2 Puffs as instructed every 6 hours as needed (wheezing or shortness of breath). ZOVIRAX 5 % crea APPLY TO THE AFFECTED AREA(S) FIVE TIMES DAILY. use for FOUR days with viral sores COMPOUNDED PRESCRIPTION Water pill with potassium, taking one daily lactobacillus comb no.10 (PROBIOTIC) 20 billion cell cap Take 1 capsule by mouth once daily. turmeric root extract 500 mg cap Take 1 capsule by mouth once daily. cholecalciferol, vitamin D3, 5,000 unit ODT Take 1 capsule by mouth once daily. aclidinium bromide (TUDORZA PRESSAIR) 400 mcg/actuation aepb Inhale 1 Inhalation as instructed twice daily. CPAP daily at bedtime. melatonin 10 mg cap Take 1 capsule by mouth once daily. No current facility-administered medications on file prior to visit. Social History Social History Marital status: Spouse name: Years of education: Number of children: Social History Main Topics Smoking status: Current Every Day Smoker Packs/day: 1.00 Years: 35.00 Types: Cigarettes Start date: 03/13/1980 Smokeless status: Never Used Comment: Currently smoking 10-15 cigarettes daily, 04/22/16, rolls her own Alcohol use: No Drug use: No EXAM: BP 124/78 Pulse 74 Resp 16 Wt 100.2 kg (221 lb) BMI 39.15 kg/m2 General Appearance: Well appearing, alert, in no acute distress, well-hydrated, well nourished., Overweight. Lungs: Lungs clear to auscultation. No wheezing, rhonchi, rales. Heart: RRR without murmur, gallop, or rubs. No ectopy. Chest: tender on palpation to the bottom of the sternum, no nodules or lumps, no swelling Health Maintenance List TETANUS due on 12/03/2020 MAMMOGRAM due on 04/29/2018 DIABETES SCREEN due on 11/02/2019 LIPID SCREEN due on 01/21/2022 ONE PNEUMOVAX PRIOR TO AGE 64 Completed INFLUENZA Completed HEPATITIS C SCREENING Completed Data reviewed none ASSESSMENT/PLAN: 1. Insomnia, unspecified type - ICD9: 780.52, ICD10: G47.00 (primary diagnosis) - ZOLPIDEM 10 MG TABLET 2. Anxiety - ICD9: 300.00, ICD10: F41.9 - LORAZEPAM 1 MG TABLET 3. Hyperlipidemia, unspecified hyperlipidemia type - ICD9: 272.4, ICD10: E78.5 - good control - Continue current medication. - Encouraged following a low fat, low cholesterol diet. - Discussed the benefits of regular aerobic exercise and weight loss. - ROSUVASTATIN 10 MG TABLET 4. Chronic obstructive pulmonary disease, unspecified COPD type (HCC) - ICD9: 496, ICD10: J44.9 Continue current medications. 5. Arthritis - ICD9: 716.90, ICD10: M19.90 6. ALIAY (obstructive sleep apnea) - ICD9: 327.23, ICD10: G47.33 Continue CPAP 7. Pain of left hip joint - ICD9: 719.45, ICD10: M25.552 Consult Ortho Follow up in 3 months with fasting labs prior. Dayami Duggan MD The documentation for this note was completed by Ruchi Mcdermott Ma acting as scribe for Dayami Duggan MD. September 01, 2017 1:20 PM. OBSOLETE Observed: 07/14/2017 Status: COMPLETED Source: [place] 12:00 AM [facility] REPOSITORY Refill (FAMPWS) DEVON BARAHONA ([id number]) 1960 F Date Time Provider Department 07/14/17 HA KILLIAN ([facility]) [facility] During your visit today, we recorded the following information about you: Sola Alfaro LPN 07/15/2017 8:54 AM Signed Last office visit: 05/02/17 Last refill date: 06/18/17 qty: 120 refill 0 Next office visit: 09/01/17 Sola Alfaro LPN check [place] Patient has been identified by name and date of : Yes RX INSTRUCTIONS: Prescription must be called to the pharmacy (non-escript). Sola Singh III MD 07/15/2017 7:16 PM Signed OARRS website checked and validated. All prescriptions have been APPROPRIATELY filled. No suspicious activity was identified.- 07/15/2017 by ILDEFONSO Haas MD, Ma 07/16/2017 1:36 PM Signed The following prescriptions have been called to [facility] pharmacy 07/16/2017 at 1:35 PM by Josiah Caldwell Ma. I spoke with sriram ALCARAZ in the pharmacy. Signed Prescriptions Disp Refills LORazepam (ATIVAN) 1 mg tablet 120 tablet 0 Sig: TAKE 1 TABLET BY MOUTH EVERY 6 HOURS NEEDED EDUARDO Class: C-IV BRENDA: No Authorizing Provider: ALONZO SINGH III Allergies As of Date: 07/14/2017 Noted Allergy Reaction ALOE VERA 03/26/2010 2 - Rash Comments: Causes bustillos/redness/blistering when applied topically. DARVON (PROPOXYPHENE HCL) 03/17/2010 8 - GI Upset 11 - Vomiting DOXYCYCLINE 09/08/2012 14 - Other: See Comments Comments: Vaginal yeast infection. PERCOCET (OXYCODONE-ACETAMINOPHEN)03/17/2010 1 - Mental Status Change Comments: Visual hallucinations VICODIN (HYDROCODONE-ACETAMINOPHE*03/17/2010 8 - GI Upset Date Reviewed: 06/03/2017 Reviewed by: Zach Morley - Fully Assessed Reason for Visit: Refill Request [94] Primary Visit Diagnosis:Anxiety [F41.9] Order(s):LORazepam (ATIVAN) 1 mg tabletTAKE 1 TABLET BY MOUTH EVERY 6 HOURS NEEDEDDisp: 120 tabletRfl: 0 Prescriptions as of 07/14/2017 Sig: LORAZEPAM 1 MG TABLET TAKE 1 TABLET BY MOUTH EVERY * MULTIVITAMIN TABLET Take 1 tablet by mouth once d* ROSUVASTATIN 10 MG TABLET Take 1 tablet by mouth daily * ZOLPIDEM 10 MG TABLET Take 1 tablet by mouth at bed* COMPOUNDED PRESCRIPTION Assess CPAP unit settings, ma* ALBUTEROL SULFATE 90 MCG/ACTU* Inhale 2 Puffs as instructed * ZOVIRAX 5 % TOPICAL CREAM APPLY TO THE AFFECTED AREA(S)* COMPOUNDED PRESCRIPTION Water pill with potassium, ta* LACTOBACILLUS COMBINATION NO.* Take 1 capsule by mouth once * MELATONIN 10 MG CAPSULE Take 1 capsule by mouth once * TURMERIC ROOT EXTRACT 500 MG * Take 1 capsule by mouth once * CHOLECALCIFEROL (VITAMIN D3) * Take 1 capsule by mouth once * ACLIDINIUM BROMIDE 400 MCG/AC* Inhale 1 Inhalation as instru* CPAP daily at bedtime. Problem List As Of Date 07/14/2017 Noted Resolved Arthritis [M19.90] INVALID FOR* Back pain [M54.9] INVALID FOR*03/23/2016 More... Bladder instability [N32.89] INVALID FOR*03/20/2014 Asthma [J45.909] INVALID FOR*06/06/2012 Acute gastritis without mention of hemorrhage [*INVALID FOR*05/04/2012 ALIYA (obstructive sleep apnea) [G47.33] INVALID FOR* More... COPD (chronic obstructive pulmonary disease) [J*INVALID FOR* Other and unspecified hyperlipidemia [E78.5] INVALID FOR* Lumbar strain [S39.012A] INVALID FOR*05/04/2012 Lumbar spondylosis [M47.816] INVALID FOR*05/04/2012 Lumbar radiculopathy [M54.16] INVALID FOR*05/04/2012 Lumbar disc displacement without myelopathy [M5*INVALID FOR*05/04/2012 Low back pain [M54.5] INVALID FOR*03/23/2016 DDD (degenerative disc disease), lumbar [M51.36]INVALID FOR* Globus syndrome [F45.8] INVALID FOR*03/20/2014 Rhinitis [J31.0] INVALID FOR*05/04/2012 Laryngitis [J04.0] INVALID FOR*05/04/2012 Anxiety [F41.9] INVALID FOR* Scars [L90.5] INVALID FOR*05/04/2012 Hirsutism [L68.0] INVALID FOR*05/04/2012 Emphysema [J43.9] INVALID FOR* Back pain, chronic [M54.9, G89.29] INVALID FOR* Scalp lesion [L98.9] INVALID FOR*03/20/2014 Vulvar itching [L29.2] INVALID FOR*03/20/2014 Lens replaced by other means [Z96.1] INVALID FOR*03/23/2016 Insomnia [G47.00] INVALID FOR* Irritable bowel [K58.9] INVALID FOR* Mucopurulent chronic bronchitis (HCC) [J41.1] INVALID FOR* Gastroesophageal reflux disease without esophag*INVALID FOR* Cornea replaced by transplant [Z94.7] INVALID FOR*03/23/2016 Chronic pain of right knee [M25.561, G89.29] INVALID FOR* After-cataract obscuring vision, left [H26.492] INVALID FOR* Pseudophakia of both eyes [Z96.1] INVALID FOR* History of Descemet membrane endothelial kerato*INVALID FOR* More... Prescriptions ordered this encounter Disp Refills Start End LORAZEPAM 1 MG TABLET 120 * 0 07/15/2017 08/14/2017 Class: Call Rx Sig: TAKE 1 TABLET BY MOUTH EVERY 6 HOURS NEEDED Medications Discontinued During This Encounter LORazepam (ATIVAN) 1 mg tablet 120 * 0 06/18/2017 07/15/2017 Class: Call Rx Sig: TAKE 1 TABLET BY MOUTH EVERY 6 HOURS NEEDED Disc: Reason for discontinue is not on file. Encounter Status:Closed by JOSIAH CALDWELL MA on 07/16/17 ALLERGIES ALLERGIES DATE TYPE / CODE NAME / CODE REACTION SEVERITY SOURCE 06/26/2018 Drug hydrocodone Upset Stomach Unknown [place] Allergy/416 bitartrate/[id number] [facility] [id number]([place] [address] 06/26/2018 Drug oxycodone Other Unknown [place] Allergy/416 HCl/[id number](RXNO [facility] 169049([facility] ED CT) Repository 06/26/2018 Drug propoxyphene Vomiting Unknown [place] Allergy/416 HCl/[id number](RXNO [facility] 654147([facility] ED CT) Repository 06/26/2018 Drug aloe Other Unknown [place] Allergy/416 vera/[id number](RXN Community 600169([facility] ED [facility]) Repository 06/26/2018 Drug doxycycline/[id number] Other Unknown [place] Allergy/416 748(RXNORM) Community 542654([facility] ED CT) Repository 09/08/2012 DRUG DOXYCYCLINE OTHER: SEE C [address] 970899(SNOM Repository ED CT) 03/26/2010 DRUG ALOE VERA RASH [address] 237431(SNOM Repository ED CT) 03/17/2010 DRUG PROPOXYPHENE HCL GI UPSET [address] 031731(SNOM Repository ED CT) 03/17/2010 DRUG/[id number] OXYCODONE-ACETAMINO [facility] 003(SNOMED PHEN [address] [place] [address]) Repository 03/17/2010 DRUG/[id number] HYDROCODONE-ACETAMI GI UPSET [facility] 003(SNOMED NOPHEN [facility] CT) Repository ENCOUNTERS ENCOUNTERS ADMIT/DISCHARGE ACCOUNT ADMITTING ENCOUNTER LOCATION SOURCE NUMBER CLASS 06/26/2018/06/26/20 [id number] Ambulatory BMSBuilding:[facility] [place] [address] [place] Repository 06/22/2018/06/22/20 [id number] Amb[facility] 06/15/2018 [id number] Ambulatory [facility] ing:OPBI Repository 06/01/2018/06/05/20 [id number] Ambulatory [address] Repository 06/01/2018 [id number] Ambulatory [facility] Repository 06/01/2018 [id number] Ambulatory BMSBuilding:[facility] [place] Repository 05/24/2018 [id number] Ambulatory [facility] ing:MRI Repository 05/22/2018/05/22/20 [id number] Ambulatory [facility] [place] [facility] Repository 05/04/2018/05/04/20 [id number] Ambulatory BMSBuilding:[facility] [place] [address] [facility] Repository 05/02/2018/05/02/20 [id number] Ambulatory BMSBuilding:[facility] [place] [facility] [place] Repository 04/18/2018 [id number] Ambulatory [facility] ing:MTLAB Repository 04/18/2018/04/18/20 [id number] Ambulatory BMSBuilding:[facility] [place] [facility] [place] Repository 04/18/2018/04/18/20 [id number] Ambulatory BMSBuilding:[facility] [place] [address] [place] Repository 04/06/2018/04/06/20 [id number] Ambulatory BMSBuilding:[facility] [place] [facility] [place] Repository 03/21/2018/03/21/20 [id number] Ambulatory [facility]MS[facility] [place] [facility] Repository 03/13/2018/03/13/20 [id number] Ambulatory BMSBuilding:[facility] [place] [facility] Repository 03/06/2018/03/06/20 [id number] Ambulatory BMSBuilding:[facility] [place] [facility] [place].Community [facility] 02/08/2018 [id number] [facility] Repository 02/08/2018 [id number] [facility] Repository 02/08/2018 [id number] [facility] Repository 02/06/2018/02/07/20 [id number] [facility] 02/01/2018/02/04/20 [id number] Ambulatory [address] Repository 01/17/2018/01/18/20 [id number] [facility] [place] [facility] 01/11/2018/01/20/20 [id number] Ambulatory [address] Repository 01/04/2018 [id number] Ambulatory BMSBuilding:B Gopal [facility] Repository 12/22/2017/12/23/19 [id number] Ambulatory [facility] 12/15/2017 [id number] Ambulatory [facility]MSBuilding:[facility] [place] [facility] Repository 12/08/2017/12/09/19 [id number] Ambulatory [facility] 11/24/2017/11/25/19 [id number] Ambulatory BMSBuilding:B [facility] 18 [facility] Repository 11/21/2017/11/25/19 [id number] Ambulatory [address] Repository 11/21/2017/11/24/19 [id number] Ambulatory [address] Repository 11/14/2017/11/15/19 [id number] Ambulatory BMSBuilding:B [facility] Repository 11/08/2017/11/09/19 [id number] Ambulatory [facility] 10/31/2017/11/01/19 [id number] Ambulatory [address] Repository 10/31/2017/11/02/19 [id number] Ambulatory [address] Repository 10/26/2017/10/27/19 [id number] Emergency [address] Repository 09/12/2017/09/13/19 [id number] Ambulatory [address] Repository 09/12/2017/09/12/19 [id number] Ambulatory [address] Repository 09/01/2017/09/01/19 [id number] Ambulatory [address] Repository 09/01/2017/09/01/19 [id number] Ambulatory [address] Repository PAYERS PAYERS ENCOUNTER GUARANTOR PAYER SUBSCRIBER SOURCE 06/26/2018 DEVON L Primary DEVON L [place] [id number] Insurance:CARESOURCEP DOBBINSB: [facility] Number: [id number] [place] [id number] Repository 60638Cge: (330) Date:2018-06-22 O [phone] () [address]ATTN: [place] [address]UC: 06/26/2018 Secondary NOT GIVENUNK [place] Insurance:SELF PAY [facility] Number: Effective Repository Date:2018-06-23 06/22/2018 DEVON L Primary DEVON L [place] [id number] Insurance:CARESOURCEP DOBBINSESSENTIA HEALTH: [facility] Number: [id number] [place] [id number] Repository 16448Khy: (330) Date:2018-06-15P O [phone] (HP) [address]ATTN: [place] [address]ED: 06/22/2018 Secondary NOT GIVENUNK Gopal Insurance:SELF PAY [facility] Number: Effective Repository Date:2018-06-21 06/15/2018 DEVON L Primary DEVON L [place] [id number] Insurance:CARESOURCEP DOBBINSDOB: Community ODELL [facility]licy Number: [id number] [place], [place] [id number] Repository 21669Ekq: (330) Date:2018-05-04P O [phone] () [address]ATTN: [place] [address]KT: 06/15/2018 Secondary NOT GIVENUNK [place] Insurance:SELF PAY [facility] Number: Effective Repository Date:2018-05-04 06/01/2018 DEVON L Primary DEVON L Gopal [id number] Insurance:CARESOURCEP DOBBINSDOB: [facility] ODELL [facility] Number: [id number] [place], [place] [id number] Repository 17361Mfl: (330) Date:2018-06-01P O [phone] () [address]ATTN: [place] [address]YL: 06/01/2018 Secondary NOT GIVENUNK Gopal Insurance:SELF PAY [facility] Number: Effective Repository Date:2018-06-01 05/24/2018 DEVON L Primary DEVON L Gopal [id number] Insurance:CARESOURCEP DOBBINSDOB: [facility] ODELL olic Number: [id number] [place], [place] [id number] Repository 07856Xfk: (330) Date:2018-05-04P O [phone] () [address]ATTN: [place] [address]DA: 05/24/2018 Secondary NOT GIVENUNK [place] Insurance:SELF PAY [facility] Number: Effective Repository Date:2018-05-04 05/22/2018 DEVON L Primary DEVON L [place] [id number] Insurance:CARESOURCEP DOBBINSDOB: [facility] ODELL cindy Number: [id number] [place], [place] [id number] Repository [address]90[address]Viy: (330) Date:2018-05-02P O [phone] () [address]ATTN: [place] [address]AZ: 05/22/2018 Secondary NOT GIVENUNK Gopal Insurance:SELF PAY [facility] Number: Effective Repository Date:2018-05-22 05/04/2018 DEVON L Primary DEVON L Gopal [id number] Insurance:CARESOURCEP DOBBINSDOB: [facility] ODELL [facility] Number: [id number] [place], [place] [id number] Repository 25[address]Vcf: (330) Date:2018-04-18P O [phone] () [address]ATTN: [place] [address]WR: 05/04/2018 Secondary NOT GIVENUNK Gopal Insurance:SELF PAY [facility] Number: Effective Repository Date:2018-05-04 05/02/2018 DEVON L Primary DEVON L [place] [id number] Insurance:CARESOURCEP DOBBINSDOB: [facility] ODELL [facility] Number: [id number] [place] [id number] Repository 93[address]Bcj: (330) Date:2018-04-06P O [phone] () [address]ATTN: [place] [address]SM: 05/02/2018 Secondary NOT GIVENUNK Gopal Insurance:SELF PAY [facility] Number: Effective Repository Date:2018-05-02 04/18/2018 DEVON L Primary DEVON L [place] [id number] Insurance:CARESOURCEP [facility]INSDOB[facility] Number: [id number] [place] [id number] Repository 572[address]Dmh: (330) Date:2018-04-18P O [phone] (HP) [address]ATTN: [place] [address]UF: 04/18/2018 Secondary NOT GIVENUNK Gopal Insurance:SELF PAY [facility] Number: Effective Repository Date:2018-04-18 04/18/2018 DEVON L Primary DEVON L Gopal [id number] Insurance:CARESOURCEP DOBBINSDOB: [facility] Number: [id number] [place], [place] [id number] Repository 29977Xdj: (330) Date:2018-02-21P O [phone] () [address]ATTN: [place] [address]PR: 04/18/2018 Secondary NOT GIVENUNK Gopal Insurance:SELF PAY [facility] Number: Effective Repository Date:2018-02-21 04/18/2018 DEVON L Primary DEVON L [place] [id number] Insurance:CARESOURCEP DOBBINSDOB: [facility] Number: [id number] [place], [place] [id number] Repository [address]4911Jot: (330) Date:2018-03-06 O [phone] () [address]ATTN: [place] [address]XS: 04/18/2018 Secondary NOT GIVENUNK [place] Insurance:SELF PAY [facility] Number: Effective Repository Date:2018-04-18 04/06/2018 DEVON L Primary DEVON L Gopal [id number] Insurance:CARESOURCEP DOBBINSDOB: [facility] Number: [id number] [place], [place] [id number] Repository 20246Slt: (330) Date:2018-03-06P O [phone] (HP) [address]ATTN: [place] [address]EU: 04/06/2018 Secondary NOT GIVENUNK [place] Insurance:SELF PAY [facility] Number: Effective Repository Date:2018-04-06 03/21/2018 DEVON L Primary DEVON L [place] [id number] Insurance:CARESOURCEP DOBBINSDOB: [facility] Number: [id number] [place], [place] [id number] Repository 745[address]Oei: (330) Date:2018-02-06P O [phone] () [address]ATTN: [place] [address]TX: 03/21/2018 Secondary NOT GIVENUNK [place] Insurance:SELF PAY [facility] Number: Effective Repository Date:2018-03-21 03/13/2018 DEVON L Primary DEVON L [place] [id number] Insurance:CARESOURCEP DOBBINSDOB: [facility] Number: [id number] [place], [place] [id number] Repository 662[address]Mku: (330) Date:2018-03-13P O [phone] () [address]ATTN: [place] [address]RB: 03/13/2018 Secondary NOT GIVENUNK [place] Insurance:SELF PAY [facility] Number: Effective Repository Date:2018-03-13 03/06/2018 DEVON L Primary DEVON L [place] [id number] Insurance:CARESOURCEP DOBBINSDOB: [facility] Number: [id number] [place], [place] [id number] Repository 479[address]Mug: (330) Date:2018-02-27P O [phone] () [address]ATTN: [place] [address]JF: 03/06/2018 Secondary NOT GIVENUNK [place] Insurance:SELF PAY [facility] Number: Effective Repository Date:2018-03-06 02/06/2018 DEVON L Primary NOT GIVENUNK Gopal [id number] Insurance:SELF [place]Y [place] Number: Effective Repository [phone]: (330) Date:2018-02-06 [phone] () 01/17/2018 DEVON L Primary NOT GIVENUNK [place] [id number] Insurance:SELF PA[place] [facility] Number: Effective Repository [phone]: (330) Date:2018-01-17 [phone] () 01/04/2018 DEVON L Primary NOT GIVENUNK [place] [id number] Insurance:SELF [place] [facility] Number: Effective Repository [phone]: (330) Date:2017-12-28 [phone] () 12/22/2017 DEVON L Primary NOT GIVENUNK [place] [id number] Insurance:SELF [place] [facility] Number: Effective Repository [phone]: (330) Date:2017-12-30 [phone] () 12/15/2017 DEVON L Primary NOT GIVENUNK [place] [id number] Insurance:SELF [place] [facility] Number: Effective Repository [phone]: (330) Date:2017-12-09 [phone] () 12/08/2017 DEVON L Primary NOT GIVENUNK [place] [id number] Insurance:SELF [place] [facility] Number: Effective Repository [phone]: (330) Date:2017-12-08 [phone] () 11/24/2017 DEVON L Primary NOT GIVENUNK Gopal [id number] Insurance:SELF [place] [facility] Number: Effective Repository [phone]: (330) Date:2017-11-24 [phone] () 11/14/2017 DEVON L Primary NOT GIVENUNK Gopal [id number] Insurance:SELF [place] [facility] Number: Effective Repository [phone]: (330) Date:2017-11-14 [phone] () 11/08/2017 DEVON L Primary NOT GIVENUNK Gopal [id number] Insurance:SELF [place] [facility] Number: Effective Repository [phone]: (236) Date:2017-11-01 [phone] ()
== END ==
PROVIDERS: Family Provider Family Medicine; PCP Family Medicine; Referring Provider Family Medicine; Visit Provider Family Medicine
DX: Z12.31 Encounter for screening mammogram for malignant neoplasm of breast (principal)
CPT/HCPCS: 77063; 77067

== ENCOUNTER 2018-07-05 08:43 | Day surgery (SDC) | payer MEDICAID, SELFPAY ==
[2018-06-26 13:22] VITALS: BMI 37.6
[2018-07-05] VITALS (7 sets, daily range): BP systolic 98–140; BP diastolic 60–86; PULSE 82–92; RESP 14–18; TEMP 36.4–36.9; O2SAT 91–92; BMI 38.2
--- NOTE | 2018-07-05 10:15 | EGD_PTH ---
PATIENT: DEVON BARAHONA LOC: EN U#:[id number] AGE/SX: 57/F ROOM: RE07/05/[address]: Dr. Jaun Spicer MD : 1960 BED: DIS: 07/05/2018 SPEC #: [id number] RECD: 07/05/18 12:14 STATUS: MARCIA MARELY #: [id number] ANGELINA: 07/05/18 10:[address]: Jaun Spicer DEPT: SURGICAL PATHOLOGY RECD BY: Juan Nguyen ENTERED: 07/05/18 12:51 SP TYPE: EGD BIOPSY JED DR: Dr. Kolby Alaniz, DO Tissues: A - Gastric mucous membrane B - Duodenum, NOS C - COLON BIOPSY D - Descending colon E - Sigmoid colon biopsy Procedures: Surgery Specimen Level IV HEADER OPERATION: Colonoscopy, EGD ([facility] [place] PRE-OP DIAGNOSIS: Rectal bleeding, epigastric pain, esophageal dysphagia TISSUE SUBMITTED: A - Antrum for H. pylori and path, B - Duodenum biopsy, C - Random colon biopsies, D - Descending colon polyp, E - Sigmoid polyp MICROSCOPIC DIAGNOSIS A. Antrum, biopsy: Mild gastritis. See microscopic description and comment. B. Duodenum, biopsy: A fragment of duodenal mucosa, no pathologic diagnosis. C. Colon, random biopsy: Fragments of colonic mucosa, no pathologic diagnosis. D. Descending colon polyp, biopsy: Tubular adenoma. Fragments of fecal material. E. Sigmoid polyp, biopsy: Tubular adenoma. SJ:juju 07/06/18 COMMENT A. The results of immunohistochemistry for Helicobacter pylori will be reported separately ([id number]). MICROSCOPIC DESCRIPTION Slides are reviewed. A. The specimen shows fragments of gastric mucosa with chronic inflammatory cell infiltrates in the lamina propria consisting of lymphocytes and plasma cells, consistent with mild chronic gastritis. GROSS DESCRIPTION A - Received in fixative is one container labeled with the patient's name and designated antrum biopsy. The specimen consists of one irregular fragment of light wagner soft tissue that measures 0.5 x 0.3 x 0.1 cm. The specimen is totally submitted in one cassette. B - Received in fixative is one container labeled with the patient's name and designated duodenum. The specimen consists of one irregular fragment of light wagner soft tissue that measures 0.4 x 0.4 x 0.1 cm. The specimen is totally submitted in one cassette. C - Received in fixative is one container labeled with the patient's name and designated random colon biopsy. The specimen consists of multiple irregular fragments of light wagner soft tissue that in aggregate measure 2 x 0.5 x 0.1 cm. The specimen is totally submitted in one cassette. D - Received in fixative is one container labeled with the patient's name and designated descending colon polyp. The specimen consists of multiple irregular fragments of light wagner soft tissue mixed with fecal material that in aggregate measure 1 x 0.5 x 0.1 cm. The specimen is totally submitted in one cassette. E - Received in fixative is one container labeled with the patient's name and designated sigmoid polyp. The specimen consists of one irregular fragment of light wagner soft tissue that measures 0.5 x 0.5 x 0.3 cm. The specimen is totally submitted in one cassette. / SJ:juju 07/05/18 TC:1 CPT: 24180 x5
--- NOTE | 2018-07-05 10:15 | IMM_PTH ---
PATIENT: DEVON BARAHONA LOC: EN U#:[id number] AGE/SX: 57/F ROOM: RE07/05/[address]: Dr. Jaun Spicer MD : 1960 BED: DIS: 07/05/2018 SPEC #: [id number] RECD: 07/05/18 13:37 STATUS: MARCIA REQ #: [id number] ANGELINA: 07/05/18 10:[address]: Jaun Spicer DEPT: IMMUNOHISTOCHEMISTRY RECD BY: Jennifer Carranza ENTERED: 07/05/18 13:37 SP TYPE: IMMUNO OTHR DR: Dr. Kolby Alaniz, DO Tissues: A - Stomach, NOS Procedures: H Pylori (initial) PHYSICIAN & INSTITUTION [place] [id number] SPECIMEN INFORMATION: Tissue Source: A - Antrum biopsy Clinical Info: Rectal bleeding, epigastric pain, esophageal dysphagia Specimen Number: [id number] CPT code: 11932 METHODOLOGY: Deparaffinized sections of prefer/formalin-fixed tissue or PAP/DQ stained slides are incubated with monoclonal/polyclonal antibodies/oligonucleotide probes. Localization is made via biotin free immunoperoxidase method. Appropriate controls are performed and reacted as expected. Results on target cell population are indicated in the following table: RESULTS: ANTIBODY / CLONE RESULT Block A H Pylori (polyclonal) negative These tests were developed and their performance characteristics determined by [facility]. They may not have been cleared or approved by the U.S. Food and Drug Administration. The FDA has determined that such clearance or approval is not necessary. INTERPRETATION: A. Antrum, biopsy: Negative for Helicobacter pylori organisms. SJ:juju 07/06/18
--- NOTE | 2018-07-05 10:36 | OP.ENDO_ITS ---
Patient Name: Tiff Ladd Procedure Date: 07/05/2018 10:02 AM Date of : 1960 Age: 57 Procedure: Upper GI endoscopy Indications: Epigastric abdominal pain, Dysphagia, Abdominal bloating Providers: Jaun Spicer MD Referring MD: Kolby Alaniz Medicines: See the Anesthesia note for documentation of the administered medications Patient Profile: This is a 57 year old female. Refer to note in patient chart for documentation of history and physical. Complications: No immediate complications. Procedure: Pre-Anesthesia Assessment: - Prior to the procedure, a History and Physical was performed, and patient medications and allergies were reviewed. The patient's tolerance of previous anesthesia was also reviewed. The risks and benefits of the procedure and the sedation options and risks were discussed with the patient. All questions were answered, and informed consent was obtained. Prior Anticoagulants: The patient has taken no previous anticoagulant or antiplatelet agents. ASA Grade Assessment: III - A patient with severe systemic disease. After reviewing the risks and benefits, the patient was deemed in satisfactory condition to undergo the procedure. After obtaining informed consent, the endoscope was passed under direct vision. Throughout the procedure, the patient's blood pressure, pulse, and oxygen saturations were monitored continuously. The gastroscope was introduced through the mouth, and advanced to the second part of duodenum. The upper GI endoscopy was accomplished without difficulty. The patient tolerated the procedure well. Scope In: 10:11:09 AM Scope Out: 10:15:05 AM Total Procedure Duration Time 0 hours 3 minutes 56 seconds Findings: The Z-line was variable and was found 40 cm from the incisors. No biopsies or other specimens were collected for this exam. No endoscopic abnormality was evident in the esophagus to explain the patient's complaint of dysphagia. The entire examined stomach was normal. Biopsies were taken with a cold forceps for Helicobacter pylori testing. The examined duodenum was normal. Biopsies for histology were taken with a cold forceps for evaluation of celiac disease. Impression: - Z-line variable, 40 cm from the incisors. No specimens collected. - No endoscopic esophageal abnormality to explain patient's dysphagia. - Normal stomach. Biopsied. - Normal examined duodenum. Biopsied. Recommendation: - Await pathology results. - Repeat upper endoscopy (date not yet determined) for surveillance. - Return to my office in 1 week. - Continue present medications. Procedure Code(s): --- Professional --- 22155, Esophagogastroduodenoscopy, flexible, transoral; with biopsy, single or multiple Diagnosis Code(s): --- Professional --- K22.8, Other specified diseases of esophagus R13.10, Dysphagia, unspecified R10.13, Epigastric pain R14.0, Abdominal distension (gaseous) CPT copyright 2017 [employer]. All rights reserved. The codes documented in this report are preliminary and upon calender tender review may be revised to meet current compliance requirements. MD Jaun Alvarez MD 07/05/2018 10:36:15 AM This report has been signed electronically. Number of Addenda: 0 Note Initiated On: 07/05/2018 10:02 AM
--- NOTE | 2018-07-05 10:41 | OP.ENDO_ITS ---
Patient Name: Tiff Ladd Procedure Date: 07/05/2018 10:16 AM Date of : 1960 Age: 57 Procedure: Colonoscopy Indications: Rectal bleeding Providers: Jaun Spicer MD Referring MD: Kolby Alaniz Medicines: See the Anesthesia note for documentation of the administered medications Patient Profile: This is a 57 year old female. Refer to note in patient chart for documentation of history and physical. Last Colonoscopy: 2015. Complications: No immediate complications. Procedure: Pre-Anesthesia Assessment: - Prior to the procedure, a History and Physical was performed, and patient medications and allergies were reviewed. The patient's tolerance of previous anesthesia was also reviewed. The risks and benefits of the procedure and the sedation options and risks were discussed with the patient. All questions were answered, and informed consent was obtained. Prior Anticoagulants: The patient has taken no previous anticoagulant or antiplatelet agents. ASA Grade Assessment: III - A patient with severe systemic disease. After reviewing the risks and benefits, the patient was deemed in satisfactory condition to undergo the procedure. After I obtained informed consent, the scope was passed under direct vision. Throughout the procedure, the patient's blood pressure, pulse, and oxygen saturations were monitored continuously. The Colonoscope was introduced through the anus and advanced to the cecum, identified by appendiceal orifice and ileocecal valve. The colonoscopy was performed without difficulty. The patient tolerated the procedure well. The quality of the bowel preparation was good. Scope In: 10:17:51 AM Scope Withdrawal Time 0 hours 9 minutes 39 seconds Scope Out: 10:31:41 AM Total Procedure Duration Time 0 hours 13 minutes 50 seconds Findings: Three sessile polyps were found in the descending colon and transverse colon. The polyps were 4 to 7 mm in size. These polyps were removed with a hot snare. Resection and retrieval were complete. A few small-mouthed diverticula were found in the sigmoid colon. The exam was otherwise without abnormality. The exam was otherwise normal throughout the examined colon. Multiple random biopsies were obtained with cold forceps for histology randomly in the entire colon. Impression: - Three 4 to 7 mm polyps in the descending colon and in the transverse colon, removed with a hot snare. Resected and retrieved. - Diverticulosis in the sigmoid colon. - The examination was otherwise normal. - Multiple random biopsies were obtained in the entire colon. Recommendation: - Discharge patient to home. - Resume previous diet. - Continue present medications. - Await pathology results. - Repeat colonoscopy in 3 years for surveillance. - Return to my office in 1 week. Procedure Code(s): --- Professional --- 35304, Colonoscopy, flexible; with removal of tumor(s), polyp(s), or other lesion(s) by snare technique 62764, 59, Colonoscopy, flexible; with biopsy, single or multiple Diagnosis Code(s): --- Professional --- D12.4, Benign neoplasm of descending colon D12.3, Benign neoplasm of transverse colon (hepatic flexure or splenic flexure) K62.5, Hemorrhage of anus and rectum K57.30, Diverticulosis of large intestine without perforation or abscess without bleeding CPT copyright 2017 [employer]. All rights reserved. The codes documented in this report are preliminary and upon sales agent fire insurance review may be revised to meet current compliance requirements. MD Jaun Alvarez MD 07/05/2018 10:40:54 AM This report has been signed electronically. Number of Addenda: 0 Note Initiated On: 07/05/2018 10:16 AM
--- OUTSIDE RECORDS SUMMARY | 2018-10-06 09:23 | XMS RPT_ITS ---
:1960 Author Organization OHIP Support Name Relationship Address Phone DALI HUYNH Unavailable [address] + [place] [address] JOEL BARAHONA Unavailable [address] + [place] [address] UE Unavailable Unavailable Unavailable DALI HUYNH Unavailable [address] + [place] [address] JOEL BARAHONA Unavailable [address] + [place] [address] UE Unavailable Unavailable Unavailable DALI HUYNH Unavailable [address] + [facility] [place] [address] DOJOEL VALDEZ Unavailable [address] + [place] [address] UE Unavailable Unavailable Unavailable DALI HUYNH Unavailable [address] + [facility] [place] [address] JOEL BARAHONA Unavailable [address] + [place] [address] UE Unavailable Unavailable Unavailable DALI HUYNH Unavailable [address] + [place] [address] JOEL BARAHONA Unavailable [address] + [place] [address] UE Unavailable Unavailable Unavailable DALI HUYNH Unavailable [address] + [place] [address] JOEL BARAHONA Unavailable [address] + [place] [address] UE Unavailable Unavailable Unavailable DALI HUYNH Unavailable [address] + [place] [address] JOEL BARAHONA Unavailable [address] + [place] [address] UE Unavailable Unavailable Unavailable DALI HUYNH Unavailable [address] + [place] [address] DOBBINS, JOEL Unavailable [address] + [place] [address] UE Unavailable Unavailable Unavailable DALI HUYNH Unavailable [address] + [place] [address] DOBBINS, JOEL Unavailable [address] + [place] [address] UE Unavailable Unavailable Unavailable DALI HUYNH Unavailable [address] + [place] [address] DOBBINS, JOEL Unavailable [address] + [place] [address] UE Unavailable Unavailable Unavailable DOBBINS, JOEL Unavailable [address] + [place] [address] UE Unavailable Unavailable Unavailable DOBBINS, JOEL Unavailable [address] + [place] [address] UE Unavailable Unavailable Unavailable DOBBINS, JOEL Unavailable [address] + [place] [address] UE Unavailable Unavailable Unavailable DOBBINS, JOEL Unavailable [address] + [place] [address] UE Unavailable Unavailable Unavailable DOBBINS, JOEL Unavailable [address] + [place] [address] UE Unavailable Unavailable Unavailable DOBBINS, JOEL Unavailable [address] + [place] [address] UE Unavailable Unavailable Unavailable DOBBINS, JOEL Unavailable [address] + [place] [address] UE Unavailable Unavailable Unavailable DOBBINS, JOEL Unavailable [address] + [place] [address] UE Unavailable Unavailable Unavailable DOBBINS, JOEL Unavailable [address] + [place] [address] UE Unavailable Unavailable Unavailable DOBBINS, JOEL Unavailable [address] + [place] [address] UE Unavailable Unavailable Unavailable DOBBINS JOEL Unavailable [address] + [place] [address] UE Unavailable Unavailable Unavailable DOBBINS, JOEL Unavailable [address] + [place] [address] UE Unavailable Unavailable Unavailable DOBBINS, JOEL Unavailable [address] + [place] [address] UE Unavailable Unavailable Unavailable DOBBINS, JOEL Unavailable [address] + [place] [address] UE Unavailable Unavailable Unavailable DOBBINS, JOEL Unavailable [address] + [place] [address] UE Unavailable Unavailable Unavailable DOBBINS, JOEL Unavailable [address] + [place] [address] UE Unavailable Unavailable Unavailable DOBBINS, JOEL Unavailable [address] + [place] [address] UE Unavailable Unavailable Unavailable DOBBINS, JOEL Unavailable [address] + [place] [address] UE Unavailable Unavailable Unavailable DOBBINS, JOEL Unavailable [address] + [place] [address] UE Unavailable Unavailable Unavailable DOBBJOAN JOEL Unavailable [address] + [place] [address] UE Unavailable Unavailable Unavailable DOBBJOAN JOEL Unavailable [address] + [place] [address] UE Unavailable Unavailable Unavailable Care Team Providers Name Role Phone DAYAMI DUGGAN Attending Unavailable DAYAMI DUGGAN Referring Unavailable DAYAMI DUGGAN Referring Unavailable BERNARD GUTHRIE Attending Unavailable DAYAMI DUGGAN Referring Unavailable DAYAMI DUGGAN Attending Unavailable DAYAMI DUGGAN Referring Unavailable LOU MENDOZA Attending Unavailable LOU MENDOZA Referring Unavailable LOU MENDOZA Referring Unavailable CHRISTINA ZAMUDIO Attending Unavailable DAYAMI DUGGAN Referring Unavailable DAYAMI DUGGAN Attending Unavailable DAYAMI DUGGAN Referring Unavailable IVET MEDELLIN (HOMER) Referring Unavailable LOU MENDOZA Attending Unavailable IVET MEDELLIN (HOMER) Referring Unavailable [place], Jaun Attending Unavailable Brown, Kolby Primary Care Unavailable Brown, Kolby Referring Unavailable Brown, Kolby Primary Care Unavailable Osmin Moore Attending Unavailable [place], Jaun Attending Unavailable Brown, Kolby Referring Unavailable Brown, Kolby Attending Unavailable Oleghe, Efewongbe Referring Unavailable Dossie, Sultana Sanchez Attending Unavailable [...] Sanchez Attending Unavailable Elderbrock, Dayami Referring Unavailable Calabretta, Josafat Attending Unavailable Calabretta, Josafat Referring Unavailable Brown, Kolby Primary Care Unavailable Radha Wilson Attending Unavailable Brown, Kolby Attending Unavailable Brown, Kolby Referring Unavailable Brown, Kolby Primary Care Unavailable Dossie, Sultana Sanchez Attending [...] Attending Unavailable Dossie, Sultana Sanchez Attending Unavailable Brown, Kolby Attending Unavailable Elderbrock, Dayami Referring Unavailable Brown, Kolby Attending Unavailable Brown, Kolby Referring Unavailable Brown, Kolby Primary Care Unavailable Dossie, Sultana Sanchez Attending Unavailable Brown, Kolby Attending Unavailable Oleghe, Efewongbe Referring Unavailable Brown, Kolby Attending Unavailable Brown, Kolby Referring Unavailable Brown, Kolby Primary Care Unavailable Dossie, Sultana D.C. Attending Unavailable Coco Foy Attending Unavailable Kolby Alaniz Attending Unavailable Kolby Alaniz Referring Unavailable Kolby Alaniz Primary Care Unavailable Sultana Shelley D.C. Attending Unavailable Kolby Alaniz Referring Unavailable Jaun Spicer Attending Unavailable Corbin, Kolby Referring Unavailable BERNARD GUTHRIE Referring Unavailable AMALFITANO, CHRISTINA Burns Referring Unavailable AMALFITANO, CHRISTINA L Referring Unavailable AMALFITANO, CHRISTINA L Referring Unavailable RACIEL GAMEZ Attending Unavailable JENNY PATTON Attending Unavailable LUIS ANGELSGYomi SHELLIRUDOLPH MAR Attending Unavailable PROBLEMS PROBLEMS DATE TYPE CONDITION / CODE ATTENDING STATUS SOURCE 07/25/2018 Unknown M54.10 - Kolby Alaniz Active [facility] Radiculopathy, site Community unspecified / Hospital M54.10(ICD-10) Repository 07/24/2018 Active Contusion of right CONKLE, SHELLI Active [facility] knee, initial [facility] Other encounter / [place] S80.01XA(ICD-10) Repository 07/24/2018 Active Abrasion, right CONKLE, SHELLI Active [facility] knee, initial [facility] Other encounter / [place] S80.211A(ICD-10) Repository 07/19/2018 Active Headache / JENNY PATTON Active [facility] R51(ICD-10) [facility] Clinic Other [place] Repository 07/17/2018 Active Unspecified injury BUDZIAK, Active [facility] of head, initial [facility] Other encounter / [facility] S09.90XA(ICD-10) Repository 07/17/2018 Active Acute frontal BUDZIAK, Active [facility] sinusitis, [facility] Other unspecified / [facility] J01.10(ICD-10) Repository 06/26/2018 Unknown K62.5 - Hemorrhage DannielleJaun tim Active [facility] of anus and rectum / Community K62.5(ICD-10) Hospital Repository 06/26/2018 Unknown R10.13 - Epigastric [place], Jaun Active [facility] pain / Community R10.13(ICD-10) Hospital Repository 06/26/2018 Unknown R13.10 - Dysphagia, [place], Jaun Active [facility] unspecified / Community R13.10(ICD-10) Hospital Repository 06/23/2018 Unknown M99.03 - Segmental Dossie, Sultana Active [facility] and somatic [facility] Community dysfunction of Hospital lumbar region / Repository M99.03(ICD-10) 06/23/2018 Unknown M99.05 - Segmental Dossie, Sultana Active [facility] and [facility] Community dysfunction of Hospital pelvic region / Repository M99.05(ICD-10) 06/23/2018 Unknown M99.02 - Segmental Dossie, Sultana Active [facility] and [facility] Community dysfunction of Hospital thoracic region / Repository M99.02(ICD-10) 06/23/2018 Unknown M99.01 - Segmental Dossie, Sultana Active [facility] and somatic [facility] 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 / Community M31.6(ICD-10) Hospital Repository 04/18/2018 Unknown I10 - Essential Brown, Kolby Active [facility] (primary) Community hypertension / Hospital I10(ICD-10) Repository 04/18/2018 Unknown E78.5 - Brown, Kolby Active [facility] Hyperlipidemia, Community unspecified / Hospital E78.5(ICD-10) Repository 04/18/2018 Unknown L68.0 - Hirsutism / Brown, Kolby Active [facility] L68.0(ICD-10) [facility] Hospital Repository 04/18/2018 Unknown E66.9 - Obesity, Brown, Kolby Active [facility] unspecified / Community E66.9(ICD-10) Hospital Repository 04/19/2018 Unknown M54.5 - Low back Dossie, Sultana Active [facility] pain / M54.5(ICD-10) [facility] Hospital Repository 03/07/2018 Unknown M54.9 - Dorsalgia, Dossie, Sultana Active [facility] unspecified / [facility] Community M54.9(ICD-10) Hospital Repository 04/28/2015 Active Obstructive sleep NA Active [place] apnea (adult) Clinic Other (pediatric) / [place] G47.33(ICD-10) Repository 02/08/2018 Active Chest pain, NA Active [facility] unspecified / Clinic Other R07.9(ICD-10) [place] Repository 02/08/2018 Active Shortness of breath NA Active [facility] / R06.02(ICD-10) Clinic Other [place] Repository 02/08/2018 Active Panlobular emphysema NA Active [facility] / J43.1(ICD-10) Clinic Other [place] Repository 11/21/2017 Active Chronic obstructive NA Active [facility] pulmonary disease, Clinic Main unspecified / [place] J44.9(ICD-10) Repository 10/19/2011 Active 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, Clinic Main lumbar region / [place] M51.36(ICD-10) Repository 10/31/2017 Active Dorsalgia, NA Active [facility] unspecified / Clinic Main M54.9(ICD-10) [place] Repository 10/31/2017 Active Other chronic pain / NA Active [facility] G89.29(ICD-10) Clinic Main [place] Repository 10/26/2017 Active Paresthesia of skin NA Active [facility] / R20.2(ICD-10) Clinic Other [place] Repository 09/12/2017 Active Pain in left hip / NA Active [facility] M25.552(ICD-10) Clinic Other [place] Repository 09/15/2011 Active Hyperlipidemia, NA Active [facility] unspecified / Clinic Main E78.5(ICD-10) [place] Repository PROCEDURES PROCEDURES No Procedure Records FoundRESULTS RESULTS LIPID PROFILE Collected: 08/09/2018 Status: F Source: [place] 12:[address] [facility] REPOSITORY TYPE CODE TESTS RESULT OUT OF RANGE REFERENCE UNITS LAB L501.4900 200 mg/dL High CHOL 275 Result Comment: <200 mg/dL Desirable 200-240 mg/dL Borderline >240 mg/dL High Risk LAB L501.5000 mg/dL Normal TRIG 103 Result Comment: The drugs N-Acetylcysteine and Metamizole may falsely depress this assay. Serum Triglycerides Reference Interval Normal <150 mg/dL Borderline high 150 - 199 mg/dL High 200 - 499 mg/dL Very High > or = 500 mg/dL LAB L501.6400 mg/dL Normal HDL 45 Result Comment: The drugs N-Acetylcysteine and Metamizole may falsely depress this assay. Reference Range HDL <40 mg/dL Low HDL Cholesterol HDL >or= 60 mg/dL High HDL Cholesterol LAB L501.6500 0-130 mg/dL High LDL 209 LAB L501.6600 5-40 mg/dL Normal VLDL 21 Performed By: #### L500.4100 #### [facility] [address] [place], [address] INTERNAL MEDICINE Observed: 07/25/2018 Status: F Source: [place] OFFICE VISIT 5:16 PM [facility] REPOSITORY [facility] [address] [place] [address] [place] [address] OFFICE VISIT Date of Service: 07/25/18 MR#: [id number] Acct: [id number] Name: DEVON BARAHONA Rep #: [id number] : 1960 Provider: Kolby Alaniz DO Age/Sex: 57/F Location[place] [facility] Status: Signed Intake Vital Signs07/25/18 Body Mass Index (BMI) 38.9 07/25/18 Height 5 ft 3 in 07/25/18 Weight: 219 lb 07/25/18 Body Mass Index (BMI) 38.7 07/25/18 Blood Pressure 128/78 H Intake Visit Reasons: 2 MO FU Chief Complaint: 2 MO FU, also fell on Rt knee yesterday Is patient in pain?: Yes (Rt knee) Pain scale (1-10): 8 Allergies aloe vera Allergy (Verified 07/25/18 16:05) Other doxycycline Allergy (Verified 07/25/18 16:05) Other hydrocodone bitartrate [From Vicodin] Allergy (Verified 07/25/18 16:05) Upset Stomach oxycodone HCl [From Percocet] Allergy (Verified 07/25/18 16:05) Other propoxyphene HCl [From Darvon] Allergy (Verified 07/25/18 16:05) Vomiting Medications Rosuvastatin Calcium [Crestor] 10 mg PO QHS 05/20/14 [History Confirmed 07/25/18] lactobacillus combination no.8 3 billion cell capsule 3,000 mmu cells PO QDAY 11/08/17 [History Confirmed 07/25/18] turmeric root extract 500 mg capsule 500 mg PO BID 04/18/18 [History Confirmed 07/25/18] valacyclovir 500 mg tablet 500 mg PO DAILY #60 tab 04/18/18 [Rx Confirmed 07/25/18] esomeprazole magnesium 20 mg capsule,delayed release 20 mg PO BID #180 cap 04/27/18 [Rx Confirmed 07/25/18] hiuixa-jazxlmmg-xkgadec 3,000-9,500-15,000 unit capsule,delayed releas 12.30746 cap PO TID #90 cap 05/04/18 [Rx Confirmed 07/25/18] cetirizine 10 mg capsule 10 mg PO DAILY #90 cap 06/01/18 [Rx Confirmed 07/25/18] glucosamine HCl 1,500 mg tablet 1,500 mg PO BID #180 tab 06/01/18 [Rx Confirmed 07/25/18] Co Q10 200 [Co Q-10] 200 mg PO DAILY 07/04/18 [History Confirmed 07/25/18] Salmeterol [Serevent Diskus] 1 puff INHALATION Q12 07/04/18 [History Confirmed 07/25/18] Tiotropium [place] [Spiriva Respimat] 1 puff IH BID 07/04/18 [History Confirmed 07/25/18] lorazepam 1 mg tablet 1 mg PO BID #60 tab 07/05/18 [Rx Confirmed 07/25/18] amoxicillin 500 mg capsule 500 mg PO TID #30 cap 07/19/18 [Rx Confirmed 07/25/18] gabapentin 300 mg capsule 300 mg PO DAILY 1 Days #60 cap 07/25/18 [Rx Confirmed 07/25/18] PFSH Medical History Abnormal colonoscopy (Acute) Acute [...] History of esophagogastroduodenoscopy (EGD) (Acute) History of esophagogastroduodenoscopy (EGD) (Acute 07/05/18) History of nasal septoplasty (Acute) History of partial hysterectomy (Acute) S/P colonoscopy (Acute 07/05/18) history of bladder sling (Acute) Family History [...] in: none HPI HPI Chief Complaint: 2 MO FU, also fell on Rt knee yesterday Details: DEVON BARAHONA, is a 57 F who presents to the office today for follow up on several falls as well as recheck a URI. ROS Const Constitutional: No chills, fatigue, fever(s), [...] vaginal odor or Vaginal Itching Musc Musculoskeletal: Positive for joint pain (Fell on Rt knee yesterday) and joint swelling (Rt knee); no back pain, limited range of motion, numbness or tingling Skin Skin: No change in skin color, itching, rash or wounds Breast Breast: No breast lump or breast pain Neuro Neurology: No frequent falls, weakness, visual disturbances, abnormal hearing, numbness, tingling, unsteady gait/balance, dizziness, loss of vision or memory loss Psych Psychiatric: No change in appetite, No memory loss, No anxiety, No depression, No Thoughts of harming yourself/Others Endo Endocrine: No fatigue, heat intolerance, increased thirst/drinking, increased hunger or increased urination Aller/Imm Allergy/Immunologic: No wheezing, itchy eyes or seasonal allergy symptoms Ranjan/Lymp Hematologic/Lymphatic: No easy bleeding, easy bruising or enlarged lymph nodes Exam Const General: cooperative, no acute distress Nutritional Appearance: overweight HENMT Ears: TM's normal bilaterally, hearing grossly normal bilaterally Nose: external nose normal Face and sinus: normal facial exam Mouth: oral mucosae normal Throat: posterior oropharynx normal Neck Neck: normal visual inspection Neck mass: No Resp Effort AND Inspection: normal respiratory effort Auscultation: Bilateral: Clear to Auscultation Cardio Rate: regular rate Rhythm: regular rhythm GI Inspection: obesity Palpation: soft Musc Musculoskeletal: Yes joint tenderness (Right knee is sore.) Skin General: no rashes or lesions noted Neuro General: alert Cranial Nerves: CN's II-XI intact bilaterally Cognition: normal cognition Speech: speech normal Gait: normal gait Extrem General: no clubbing, cyanosis or edema Psych Appearance: grossly normal Mood: congruent mood Affect: normal affect Speech and Movement: speech and movement normal Attitude: cooperative Judgment: judgment good Assessment AND Plan Problems 1. Hyperhidrosis R61 Patient has hyperhidrosis she has a long history of excessive sweating. 2. Bilateral headaches R51 She claims she has bilateral stabbing headaches basically bitemporal headaches that are very severe but she is had them for a long period of time. MRI was ordered as she has not had any immaging studies 3. Radicular low back pain M54.10 She complains of what she describes as sciatica she does have bilateral radicular leg pain but there is nothing on examination that would make me suspicious of sciatica. 4. Gastroesophageal reflux disease without esophagitis K21.9 Patient has a long history of esophageal reflux she takes Nexium and the prescription has gone through 5. Contusion of right knee S80.01XA Plan This patient has been seen by urgent care twice in the last several days once from falling and hitting her head at which time they told her she had a sinus infection put her on Levaquin which she reacted to it we changed her to Augmentin. Second time she fell and banged her right knee simply a contusion of the knee and she uses a cane and the knee is wrapped. Her lung problems are better her abdominal pain is cleared she still has some head congestion but I told her she is only long term through her medication so we will give it some time to work. In general other than the falls her health is been quite stable. She informs me that her insurance company is probably not going to cover the Crestor I think she may have to go through step edit process as she is already failed on Zocor and Lipitor I believe the Crestor is the only possibility. However she also complains that she has severe muscle aching and joint pain and thinks it is Crestor might be causing that. I advised her to stop the Crestor for 2 weeks if the pain went away should she is she should stay off the Crestor and I would try different medication for lipid control, and if the pain did not go away to continue on the Crestor. Medications New: Plan Detail Goals Decrease pain Increase ROM Follow Up 2 Months Coding Level of Care Code Off vis,est,level 3 Diagnoses Hyperhidrosis R61 Bilateral headaches R51 Radicular low back pain M54.10 Gastroesophageal reflux disease without esophagitis K21.9 Esophagitis presence: without esophagitis Contusion of right knee S80.01XA 07/25/18 1376 <Electronically signed by Kolby Alaniz DO> Date Kolby Alaniz DO Cosigner Signature: Date (if applicable) CC: ED PROV NOTE Observed: 07/24/2018 Status: COMPLETED Source: [place] 6:29 PM [facility] REPOSITORY O ID: [id number] Author: Shelli Ace DO Service: Emergency Medicine Author Type: Physician Type: ED Provider Notes Filed: 07/24/2018 10:40 PM Note Text: ED Provider Note Patient Name: Devon Barahona SERVICE DATE: 07/24/18 History Patient presents with: Leg Injury Devon Barahona is a 57 year old female with history of COPD, GERD, who presents with Leg Injury. Patient took nothing for this prior to arrival. - Symptoms began this evening. - Severity: moderate - Timing: constant - Quality: sharp - Leg Injury is exacerbated by movement palpation. - Leg Injury is not exacerbated by rest. - Symptoms are associated with abrasion, knee pain. - Symptoms are not associated with hip or ankle pain. - Improved by nothing. - Not improved by anything. Patient presents after her left knee gave out and she landed directly on her right knee. Did not hit her head or pass out. + abrasion to right knee. PAST MEDICAL HISTORY Diagnosis Date - Arthritis [...] Capsulotomy - EGD 05/24/14 - EGD W/O [facility] SPECIMEN W/BX 04/17/10 - EXCISION MALIGNANT LESIONS,VUL 1996 Dr. Rehman. No recent F/U. in vulvar region - HEART CATHETERIZATION 04/2011 normal no CAD - MAMMO MAMMOGRAM 2009 [facility] - PAST SURGICAL HISTORY OF age [...] - SLING OPER STRES INCONTINENCE 11/26/10, 04/2011 [facility] main campus surgery FAMILY HISTORY Problem Relation Age of Onset - Heart Mother chf at 89 - Alzheimer's Disease Mother - Cataract Mother - Blindness Sister - Cancer Sister lung cancer - Emphysema Sister - Psychiatry Brother - Strabismus Brother - Amblyopia Brother - Alcohol/Drug Sister - other (tuberculosis) Sister - Diabetes Other Multiple both family members. Social History Social History Main Topics - Smoking status: Current Every Day Smoker Packs/day: 0.50 Years: 35.00 Types: Cigarettes Start date: 03/13/1980 - Smokeless tobacco: Never Used Comment: currently down to just a few cigarettes per day 1-2, 11/21/17 - Alcohol use No - Drug use: No - Sexual activity: Not on file Comment: Patient not asked at this visit, 06/03/2017 ALLERGIES Allergen Reactions - Aloe Vera Rash Causes bustillos/redness/blistering when applied topically. - Darvon [Propoxyphen* GI Upset, Vomiting - Vicodin [Hydrocodon* GI Upset, Vomiting - Doxycycline Other: See Comments Vaginal yeast infection. - Percocet [Oxycodone* Mental Status Change Visual hallucinations - Penicillin Other: See Comments Yeast vaginitis. Review of Systems Musculoskeletal: Positive for arthralgias (right knee). Negative for back pain, joint swelling and neck pain. Skin: Positive for wound (abrasion right knee). Negative for color change, pallor and rash. Neurological: Negative for weakness and numbness. Physical Exam BP 146/99 Pulse 89 Temp (Src) 98.6 (Temporal Artery) Resp 16 Ht 5' 3 (1.60m) Wt 216 lb (98.0kg) SpO2 96% BMI 38.27 kg/(m2). Physical Exam Constitutional: She is oriented to person, place, and time. She appears well-developed and well-nourished. HENT: Head: Normocephalic and atraumatic. Cardiovascular: Normal rate, regular rhythm and intact distal pulses. Pulmonary/Chest: Effort normal. Musculoskeletal: Right hip: She exhibits no tenderness and no bony tenderness. Right knee: She exhibits decreased range of motion and bony tenderness. She exhibits no swelling, no effusion, no ecchymosis, no deformity, no laceration, no erythema, normal alignment and normal patellar mobility. Tenderness found. Medial joint line, lateral joint line and patellar tendon tenderness noted. Right ankle: No tenderness. Legs: Generalized tenderness to the right knee. Neurological: She is alert and oriented to person, place, and time. Skin: Skin is warm. Capillary refill takes less than 2 seconds. No rash noted. Psychiatric: She has a normal mood and affect. Her behavior is normal. Nursing note and vitals reviewed. Diagnostic Testing ED Labs Ordered and Reviewed - No data to display Procedures ED Course / Clinical Impression Clinical Impressions as of Jul 24 2233 Contusion of right knee, initial encounter Abrasion, right knee, initial encounter MDM / Disposition / Plan X-ray ordered. I discussed results, no acute findings. Discussed markos wrap and maintain non-weight bearing status. Patient feels comfortable using her walker at home as opposed to crutches. Will have her use walker for ambulation. Follow up with primary. Return to the ED for new/worsening symptoms. She sees her primary tomorrow as scheduled already. Disposition The patient was discharged. Counseled patient and family regarding radiology results and suspected diagnosis. As well as the need for follow-up. Discharged home with verbal and written instructions. They were instructed to return as needed for persistent or worsening symptoms or any new concerns. Condition at disposition is stable. SIGNATURE: DO Shelli Palomares DO 07/24/18 2240 ED NOTE Observed: 07/24/2018 Status: COMPLETED Source: [place] 6:25 PM [facility] [place] REPOSITORY [facility] ID: [id number] Author: Florencia ShepardRn) CÉSAR Allen Service: Emergency Medicine Author Type: Registered Nurse Type: ED Notes Filed: 07/24/2018 6:27 PM Note Text: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 For any increased pain, shortness of breath, bleeding, nausea or vomiting, chest pain, or any unexpected problems, contact your Primary Care Provider. Call [facility] ([phone]) or report to the closest Emergency Room. Call 911 if necessary. 07/05/18 3136 <Electronically signed by Osmin Moore MD> Date Osmin Magana Signature (If Indicated): Date CC: Kolby Alaniz, URINALYSIS, COMPLETE Collected: 07/05/2018 Status: F Source: [place] 2:20 PM [facility] REPOSITORY Order Comment: Order Date: 07/05/18 Has pt arrived? Y How was Urine Obtained? CLEAN CATCH TYPE CODE TESTS RESULT OUT OF RANGE REFERENCE UNITS LAB L400.3000 Yellow COLOR Normal Straw LAB L400.3050 Clear Normal CLARITY Clear LAB L400.3200 Normal mg/dl Normal GLUCOSE, UR Normal LAB L400.3300 Negative mg/dL Normal BILIRUBIN URINE Negative LAB L400.3400 Negative mg/dl Normal KETONE UR Negative LAB L400.3465 1.002-1.030 Normal SP.GR. DIPSTX 1.010 LAB L400.3550 5.0 - 8.0 pH UR Normal 8.0 LAB L400.3600 Negative mg/dl PROT Normal DIPSTX Negative LAB L400.3700 Normal mg/dl Normal UROBILI Normal LAB L400.3750 Negative Normal NITRITE UR Negative LAB L400.3780 Negative /ul Normal OCCULT BLOOD-UR Negative LAB L400.3800 Negative /ul LEUK Normal ESTERASE Negative LAB L400.4050 0-5 /hpf WBC Normal 0-5 SEEN LAB L400.4100 0-5 /hpf Normal RBC-UA 0-5 SEEN LAB L400.4150 5-10 /hpf SQUAM Normal EPI 0-5 SEEN LAB L400.4300 None Seen /hpf 1+ Normal BACTERIA LAB L400.4350 <or=2+ /hpf 0 Normal MUCUS, URINE SEEN Performed By: #### L400.0001 #### [facility] [address] [place], [address] CBC W/DIFF, AUTOMATED Collected: 07/05/2018 Status: F [facility] [place] [facility] TYPE CODE TESTS RESULT OUT OF RANGE REFERENCE UNITS LAB L100.1000 4.4-11.0 K/mm3 Normal WBC 8.5 LAB L100.1200 4.2-5.4 M/mm3 Normal RBC 4.67 LAB L100.1300 12.0-15.0 g/dl Normal HGB 14.6 LAB L100.1400 37-47 % Normal HCT 42.7 LAB L100.1500 81-99 fL Normal MCV 91.4 LAB L100.1600 27.0-32.0 pg Normal MCH 31.3 LAB L100.1700 32-36 g/gl Normal MCHC 34.2 LAB L100.1810 11.6-14.6 % Normal RDW CV 13.0 LAB L100.1820 35.1-43.9 fl Normal RDW SD 43.2 LAB L100.1900 150-450 K/mm3 Normal PLT 275 LAB L100.2000 6.2-12.0 fl Normal MPV 8.8 LAB L100.2100 47-70 % Normal NEUT% 69.1 LAB L100.2200 19-41 % Normal LY% 21.9 LAB L100.2300 0-10 % Normal MONO% 7.1 LAB L100.2400 0-5 % Normal EO% 1.1 LAB L100.2500 0-1 % Normal BASO% 0.4 LAB L100.2550 0.0-0.9 % Normal IM GRAN % 0.400 Result Comment: IG% - Immature Granulocytes (promyelocytes, myelocytes and metamyelocytes) > 1% indicates that a LEFT SHIFT is Present. LAB L100.2620 2.0-7.7 X10 3/uL Normal Absolute Neut 5.9 LAB L100.2720 0.83-4.51 X10 3/ul Normal Absolute Lymph 1.85 Performed By: #### L100.0100 #### [facility] [address] [place], [place], [address] BASIC METABOLIC Collected: 07/05/2018 Status: F Source: [place] PROFILE (BMP) 1:24 PM [facility] REPOSITORY TYPE CODE TESTS RESULT OUT OF RANGE REFERENCE UNITS LAB L501.0100 74-106 mg/dL High GLU 120 Result Comment: Fasting Glucose result from 100 to 125 mg/dL suggests IMPAIRED HOMEOSTASIS per A.D.A. criteria. Please note revised GLUCOSE reference range effective 2017. LAB L501.1000 7-18 mg/dL Normal BUN 7 LAB L501.1100 0.55-1.02 mg/dL Normal CREAT,SERUM 0.70 Result Comment: The validity of the calculated GFR AND GFRAA in patients over 70 years has not been determined. Clinical correlation is essential. LAB L501.1110 >60 mL/min Normal EST GFR 92 Result Comment: Non- GFR Calc LAB L501.1115 >60 mL/min Normal EST GFR - AA 111 Result Comment: GFR Calc LAB L501.1255 ml/min Normal Estimated CRCL 72.47 LAB L501.1300 10-20 RATIO Normal BUN/CRE 10.1 LAB L501.2200 8.5-10 mg/dL Normal .1 CA 8.6 LAB L501.5300 136-14 mmol/L Normal 5 NA 142 LAB L501.5600 3.5-5. mmol/L Normal 1 K 3.7 LAB L501.5900 98-107 mmol/L High CL 109 LAB L501.6100 21.0-3 mmol/L Normal 2.0 CO2 26.0 LAB L501.6200 5-15 Normal GAP 7 Performed By: #### L500.2500 #### [facility] [address] [facility] [place], [address] ABDOMEN/PELVIS W IV CONT Observed: 07/05/2018 Status: F Source: [facility] 12:38 PM [facility] REPOSITORY [facility] Imaging Services [address] [place], [place] [address] [address] Abdomen/Pelvis W IV Cont ONLY MR#: [id number] Acct: [id number] Name: DEVON BARAHONA Rep #: [id number] : 1960 F 57 From: Colt Mckeon DO PCP: Kolby Alaniz DO Status: REG ER Study: Abdomen/Pelvis W IV Cont ONLY Date of Exam: 07/05/18 Exam# [id number] Ordering Dr: Osmin Moore MD STUDY: CT ABDOMEN AND PELVIS WITH CONTRAST REASON FOR EXAM: Female, 57 years old. Lower abdominal pain. RADIATION DOSAGE (If Supplied By Facility): CTDIvol = ( 16.98 ) mGy, DLP = ( 1090.02 ) mGycm TECHNIQUE: Transaxial images were obtained from the dome of the diaphragm to the symphysis pubis without oral contrast. 100 ml of Isovue 300 contrast was administered. Sagittal and coronal images were reconstructed. Individualized dose optimization techniques were used for this CT. COMPARISON: 05/25/2014 FINDINGS: The visualized lung bases are unremarkable. The visualized portions of the heart are within normal limits. In the dome of the liver, there is a hypodense nonenhancing cyst measuring 1.7 cm, stable from prior. Remainder of the liver is within normal limits. Normal gallbladder and extrahepatic biliary system. Normal spleen. Normal pancreas. Normal bilateral adrenal glands. Normal right kidney. Normal left kidney. There is a small hiatal hernia. Normal small intestine. Normal colon. The appendix is visualized and appears normal. Normal abdominal aorta. Normal inferior vena cava. Normal retroperitoneum. Normal urinary bladder. There is absence of the uterus consistent with a prior hysterectomy. Small simple appearing left ovarian cyst measuring 3.5 cm. Stable from 2014. Normal abdominal wall. Normal osseous structures. CT/Abdomen/Pelvis W IV Cont ONLY IMPRESSION: No acute findings. Stable liver cyst. Stable left ovarian cyst. Electronically Signed: Colt Mckeon DO at 14:40 EST Tel , Service support , CC: Kolby Alaniz DO; Osmin Moore MD Pool Technician: Signed OPERATIVE REPORT - Observed: 07/05/2018 Status: F Source: [facility] 10:41 AM [facility] REPOSITORY [facility] Medical Records Department [address] [place] [address] Operative Report - Endoscopy MR#: [id number] Acct: [id number] Name: DEVON BARAHONA Rep #: [id number] : 1960 57 From: Jaun Spicre MD PCP: Kolby Alaniz, DO Status: REG SDC Patient Name: Devon Barahona Procedure Date: 07/05/2018 10:16 AM Date of : 1960 Age: 57 Procedure: Colonoscopy Indications: Rectal bleeding Providers: Jaun Spicer MD Referring MD: Kolby Alaniz Medicines: See the Anesthesia note for documentation of the administered medications Patient Profile: This is a 57 year old female. Refer to note in patient chart for documentation of history and physical. Last Colonoscopy: 2015. Complications: No immediate complications. Procedure: Pre-Anesthesia Assessment: - Prior to the procedure, a History and Physical was performed, and patient medications and allergies were reviewed. The patient's tolerance of previous anesthesia was also reviewed. The risks and benefits of the procedure and the sedation options and risks were discussed with the patient. All questions were answered, and informed consent was obtained. Prior Anticoagulants: The patient has taken no previous anticoagulant or antiplatelet agents. ASA Grade Assessment: III - A patient with severe systemic disease. After reviewing the risks and benefits, the patient was deemed in satisfactory condition to undergo the procedure. After I obtained informed consent, the scope was passed under direct vision. Throughout the procedure, the patient's blood pressure, pulse, and oxygen saturations were monitored continuously. The Colonoscope was introduced through the anus and advanced to the cecum, identified by appendiceal orifice and ileocecal valve. The colonoscopy was performed without difficulty. The patient tolerated the procedure well. The quality of the bowel preparation was good. Scope In: 10:17:51 AM Scope Withdrawal Time 0 hours 9 minutes 39 seconds Scope Out: 10:31:41 AM Total Procedure Duration Time 0 hours 13 minutes 50 seconds Findings: Three sessile polyps were found in the descending colon and transverse colon. The polyps were 4 to 7 mm in size. These polyps were removed with a hot snare. Resection and retrieval were complete. A few small-mouthed diverticula were found in the sigmoid colon. The exam was otherwise without abnormality. The exam was otherwise normal throughout the examined colon. Multiple random biopsies were obtained with cold forceps for histology randomly in the entire colon. Impression: - Three 4 to 7 mm polyps in the descending colon and in the transverse colon, removed with a hot snare. Resected and retrieved. - Diverticulosis in the sigmoid colon. - The examination was otherwise normal. - Multiple random biopsies were obtained in the entire colon. Recommendation: - Discharge patient to home. - Resume previous diet. - Continue present medications. - Await pathology results. - Repeat colonoscopy in 3 years for surveillance. - Return to my office in 1 week. Procedure Code(s): --- Professional --- 75742, Colonoscopy, flexible; with removal of tumor(s), polyp(s), or other lesion(s) by snare technique 11245, 59, Colonoscopy, flexible; with biopsy, single or multiple Diagnosis Code(s): --- Professional --- D12.4, Benign neoplasm of descending colon D12.3, Benign neoplasm of transverse colon (hepatic flexure or splenic flexure) K62.5, Hemorrhage of anus and rectum K57.30, Diverticulosis of large intestine without perforation or abscess without bleeding CPT copyright 2017 [employer]. All rights reserved. The codes documented in this report are preliminary and upon hospital coder review may be revised to meet current compliance requirements. MD Jaun Alvarez MD 07/05/2018 10:40:54 AM This report has been signed electronically. Number of Addenda: 0 Note Initiated On: 07/05/2018 10:16 AM 07/05/18 1041 Date Jaun Spicer MD Cosigner Signature: Date (if indicated) CC: Jaun Spicer MD; Kolby Alaniz DO Date Dictated: 07/05/18 1016 Date Transcribed: Pool Technician: ERIN Signed OPERATIVE REPORT - Observed: 07/05/2018 Status: F Source: [facility] 10:36 AM [facility] REPOSITORY [facility] Medical Records Department [address] [place] [address] Operative Report - Endoscopy MR#: [id number] Acct: [id number] Name: DEVON BARAHONA Rep #: [id number] : 1960 57 From: Jaun Spicer MD PCP: Kolby Alaniz DO Status: REG [facility] Patient Name: Devon Barahona Procedure Date: 07/05/2018 10:02 AM Date of : 1960 Age: 57 Procedure: Upper GI endoscopy Indications: Epigastric abdominal pain, Dysphagia, Abdominal bloating Providers: aJun Spicer MD Referring MD: Kolby Alaniz Medicines: See the Anesthesia note for documentation of the administered medications Patient Profile: This is a 57 year old female. Refer to note in patient chart for documentation of history and physical. Complications: No immediate complications. Procedure: Pre-Anesthesia Assessment: - Prior to the procedure, a History and Physical was performed, and patient medications and allergies were reviewed. The patient's tolerance of previous anesthesia was also reviewed. The risks and benefits of the procedure and the sedation options and risks were discussed with the patient. All questions were answered, and informed consent was obtained. Prior Anticoagulants: The patient has taken no previous anticoagulant or antiplatelet agents. ASA Grade Assessment: III - A patient with severe systemic disease. After reviewing the risks and benefits, the patient was deemed in satisfactory condition to undergo the procedure. After obtaining informed consent, the endoscope was passed under direct vision. Throughout the procedure, the patient's blood pressure, pulse, and oxygen saturations were monitored continuously. The gastroscope was introduced through the mouth, and advanced to the second part of duodenum. The upper GI endoscopy was accomplished without difficulty. The patient tolerated the procedure well. Scope In: 10:11:09 AM Scope Out: 10:15:05 AM Total Procedure Duration Time 0 hours 3 minutes 56 seconds Findings: The Z-line was variable and was found 40 cm from the incisors. No biopsies or other specimens were collected for this exam. No endoscopic abnormality was evident in the esophagus to explain the patient's complaint of dysphagia. The entire examined stomach was normal. Biopsies were taken with a cold forceps for Helicobacter pylori testing. The examined duodenum was normal. Biopsies for histology were taken with a cold forceps for evaluation of celiac disease. Impression: - Z-line variable, 40 cm from the incisors. No specimens collected. - No endoscopic esophageal abnormality to explain patient's dysphagia. - Normal stomach. Biopsied. - Normal examined duodenum. Biopsied. Recommendation: - Await pathology results. - Repeat upper endoscopy (date not yet determined) for surveillance. - Return to my office in 1 week. - Continue present medications. Procedure Code(s): --- Professional --- 24153, Esophagogastroduodenoscopy, flexible, transoral; with biopsy, single or multiple Diagnosis Code(s): --- Professional --- K22.8, Other specified diseases of esophagus R13.10, Dysphagia, unspecified R10.13, Epigastric pain R14.0, Abdominal distension (gaseous) CPT copyright 2017 [employer]. All rights reserved. The codes documented in this report are preliminary and upon hospital coder review may be revised to meet current compliance requirements. MD Jaun Alvarez MD 07/05/2018 10:36:15 AM This report has been signed electronically. Number of Addenda: 0 Note Initiated On: 07/05/2018 10:02 AM 07/05/18 1036 Date Jaun Spicer MD Cosigner Signature: Date (if indicated) CC: Jaun Spicer MD; Kolby Alaniz DO Date Dictated: 07/05/18 1002 Date Transcribed: Pool Technician: DP Signed EGD ([facility]) Observed: 07/05/2018 Status: F Source: [place] 10:15 AM [facility] REPOSITORY Patient: DEVON BARAHONA : 1960 (57/F) Acct Num: [id number] Phys: Dannielle GARVEY,Jaun Unit Num: [id number] Loc: EN Specimen: [id number] Received: 07/05/18 - 4 Spec Type: EGD BIOPSY TISSUES 1 TISSUES: A. Gastric mucous membrane B. Duodenum, NOS C. COLON BIOPSY D. Descending colon E. Sigmoid colon biopsy COMMENT A. The results of immunohistochemistry for Helicobacter pylori will be reported separately ([id number]). GROSS DESCRIPTION A - Received in fixative is one container labeled with the patient's name and designated antrum biopsy. The specimen consists of one irregular fragment of light wagner soft tissue that measures 0.5 x 0.3 x 0.1 cm. The specimen is totally submitted in one cassette. B - Received in fixative is one container labeled with the patient's name and designated duodenum. The specimen consists of one irregular fragment of light wagner soft tissue that measures 0.4 x 0.4 x 0.1 cm. The specimen is totally submitted in one cassette. C - Received in fixative is one container labeled with the patient's name and designated random colon biopsy. The specimen consists of multiple irregular fragments of light wagner soft tissue that in aggregate measure 2 x 0.5 x 0.1 cm. The specimen is totally submitted in one cassette. D - Received in fixative is one container labeled with the patient's name and designated descending colon polyp. The specimen consists of multiple irregular fragments of light wagner soft tissue mixed with fecal material that in aggregate measure 1 x 0.5 x 0.1 cm. The specimen is totally submitted in one cassette. E - Received in fixative is one container labeled with the patient's name and designated sigmoid polyp. The specimen consists of one irregular fragment of light wagner soft tissue that measures 0.5 x 0.5 x 0.3 cm. The specimen is totally submitted in one cassette. / MAXIMO:juju 07/05/18 TC:1 CPT: 09834 x5 HEADER OPERATION: [place] DIAGNOSIS: Rectal bleeding, epigastric pain, esophageal dysphagia TISSUE SUBMITTED: A - Antrum for H. pylori and path, B - Duodenum biopsy, C - Random colon biopsies, D - Descending colon polyp, E - Sigmoid polyp MICROSCOPIC DESCRIPTION Slides are reviewed. A. The specimen shows fragments of gastric mucosa with chronic inflammatory cell infiltrates in the lamina propria consisting of lymphocytes and plasma cells, consistent with mild chronic gastritis. MICROSCOPIC DIAGNOSIS A. Antrum, biopsy: Mild gastritis. See microscopic description and comment. B. Duodenum, biopsy: A fragment of duodenal mucosa, no pathologic diagnosis. C. Colon, random biopsy: Fragments of colonic mucosa, no pathologic diagnosis. D. Descending colon polyp, biopsy: Tubular adenoma. Fragments of fecal material. E. Sigmoid polyp, biopsy: Tubular adenoma. SJ:juju 07/06/18 Signed Mario Sen MD 07/06/18 <signature on file> Performed By: #### JEFF #### [facility] [address] [place] [address]. [place], [place], [id number] IMMUNOHISTOCHEMISTRY Observed: 07/05/2018 Status: F Source: [place] 10:15 AM [facility] REPOSITORY Patient: DEVON BARAHONA : 1960 (57/F) Acct Num: [id number] Phys: Dannielle GARVEY,Jaun Unit Num: [id number] Loc: EN Specimen: [id number] Received: 07/05/181336 Spec Type: IMMUNO TISSUES 1 TISSUES: A. Stomach, NOS SPECIMEN INFORMATION: Tissue Source: A - Antrum biopsy Clinical Info: Rectal bleeding, epigastric pain, esophageal dysphagia Specimen Number: [id number] CPT code: 17255 METHODOLOGY: Deparaffinized sections of prefer/formalin-fixed tissue or PAP/DQ stained slides are incubated with monoclonal/polyclonal antibodies/oligonucleotide probes. Localization is made via biotin free immunoperoxidase method. Appropriate controls are performed and reacted as expected. Results on target cell population are indicated in the following table: RESULTS: ANTIBODY / CLONE RESULT Block A H Pylori (polyclonal) negative These tests were developed and their performance characteristics determined by [facility]. They may not have been cleared or approved by the U.S. Food and Drug Administration. The FDA has determined that such clearance or approval is not necessary. INTERPRETATION: A. Antrum, biopsy: Negative for Helicobacter pylori organisms. SJ:juju 07/06/18 PHYSICIAN AND INSTITUTION [address] [address] Signed Mario Sen MD 07/06/18 <signature on file> Performed By: #### PIMM #### [facility] [address] [place] [address]. [place], [place], [id number] SURGERY VISIT REPORT Observed: 06/27/2018 Status: F Source: [place] 7:31 AM [facility] REPOSITORY [facility] [address] [place] [address] OFFICE VISIT Date of Service: 06/26/18 MR#: [id number] Acct: [id number] Name: DEVON BARAHONA Rep #: [id number] : 1960 Provider: Jaun Spicer MD Age/Sex: 57/F Location: [facility] Status: Signed Intake Vital Signs06/26/18 Body Mass Index (BMI) 37.6 06/26/18 Height 5 ft 3 in 06/26/18 Weight: 217 lb 3 oz 06/26/18 Body Mass Index (BMI) 38.5 06/26/18 Blood Pressure 145/84 H Intake Visit Reasons: Bloody Stool - Self Ref Prev Colon Cx Chief Complaint: blood in stool, hx colon cancer Multilith Operator Required: No Is patient in pain?: No [...] BID #180 cap 04/27/18 [Rx Confirmed 06/26/18] tiwzsm-vimihiwn-uyfvlom 3,000-9,500-15,000 unit capsule,delayed releas 12.85671 cap PO TID #90 cap 05/04/18 [Rx [...] oriented to place, oriented to time [facility] Head: normocephalic, atraumatic Ears: external ears [...] CHIROPRACTIC REPORT Observed: 06/22/2018 Status: F Source: [place] 4:36 PM [facility] REPOSITORY [facility] [address] [place] [address] OFFICE VISIT Date of Service: 06/22/18 MR#: [id number] Acct: [id number] Name: DEVON BARAHONA Rep #: [id number] : 1960 Provider: [facility] Age/Sex: 57/F [place] [facility] Status: Signed Intake Vital Signs06/22/18 Height 5 [...] BID #180 cap 04/27/18 [Rx Confirmed 05/04/18] ecbfel-vfintlpv-sqrxnvr 3,000-9,500-15,000 unit capsule,delayed releas 12.49868 cap PO TID #90 cap 05/04/18 [Rx [...] Additional Codes Procedures - Manipulation: 3-4 regions (46517) 06/22/18 1636 <Electronically signed by [facility]> Date [facility] Cosigner Signature: Date (if applicable) CC: SCREENING MAMM (CAD), Observed: 06/15/2018 Status: F Source: [place] 12:[address] [facility] REPOSIT[facility] Imaging Services [address] [place] [address] SCREENING MAMM (CAD), BILAT MR#: [id number] Acct: [id number] Name: DEVON BARAHONA Rep #: [id number] : 1960 F 57 From: Klaus Bergman MD PCP: Kolby Alaniz DO Status: REG CLI Study: SCREENING MAMM (CAD), BILAT Date of Exam: 06/15/18 Exam# [id number] Ordering Dr: Kolby Alaniz DO MAMMOGRAPHY - [...] delay biopsy of a clinically suspicious abnormality. [id number] Electronically Signed: Klaus Bergman MD at 14:28 EST Tel [phone], Service support , CC: Kolby Alaniz DO Pool Technician: Signed CNPN Observed: 06/14/2018 Status: COMPLETED Source: [place] 12:[address] [facility] REPOSITORY Telephone (PULMWS) DEVON BARAHONA ([id number]) 1960 F Date Time Provider Department 06/14/18 LOU MENDOZA During your visit today, we recorded the following information about you: Luly Wilde 06/14/2018 9:32 AM Signed Devon Barahona is calling Lou Mendoza MD today requesting the orders for C-Pap supplies are faxed to [place], [place] - Please fax order to [phone] These orders were orignally faxed to [facility] and patient was told by [facility] yesterday she is not in their area and unable to fill the request. She was directed to [facility] in [place]. The [place] location advised patient it would take up to two weeks to start the process on getting her supplies. [facility] [place] assist the patient and fill order once they are received. Please call patient when completed. Patient has been without her Cpap Otilia Branch LPN 06/14/2018 1:44 PM Signed Faxed to [facility]. Patient notified. Otilia Zamora Psr 06/19/2018 1:47 PM Signed Patient called today stating [facility] needed her most recent PSG. This PSS faxed over the report to [phone] from her 04/21/15 study which patient confirmed [...] MCG/A* Inhale 2 Puffs as instructed * LBLAWM-EHAHESDI-RKVWZYY 3,000* Take 1 capsule by mouth three* [...] gastritis without mention of hemorrhage [*INVALID FOR*05/04/2012 AILYA (obstructive sleep apnea) [G47.33] INVALID FOR* More... [...] Status:Closed by OTILIA BRANCH LPN on 06/14/18 CNOV Observed: 06/01/2018 Status: COMPLETED Source: [place] 1:00 PM [facility] [place] REPOSITORY Office Visit (PULMWS) DEVON BARAHONA ([id number]) 1960 F Date Time Provider Department 06/01/18 1:00 PM LOU MENDOZA During your visit today, we recorded the following information about you: Pulse Respiration Blood pressure Weight 90/minute 16/minute 102/62 99.3 kg Otliia Branch LPN 06/01/2018 12:52 PM Attested Attestation [...] GI: notes heartburn. notes dysphagia. denies diarrhea. 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 denies hesitancy. denies nocturia. Menses: Post menopausal Musculoskeletal: denies pain. Neuro: notes headache- temporal, denies focal weakness. denies tremor. Skin: denies rash. Otherwise negative. Lou Mendoza MD 06/02/2018 1:31 PM Signed [facility] [place], 06/01/2018: ? INTERVAL HISTORY: Ms. Barahona is [...] hemoptysis, wheezing, chest tightness. 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 Lou Mendoza MD, [facility] [address] [address] Lou Mendoza MD 06/02/2018 1:30 [...] nasal pillows/cradle cushion system. Lou Mendoza MD, [facility] Respiratory [facility] [address] [address] P: [phone] F: [phone] [email or web address] ? Referring Provider: IVET MEDELLIN [[id number]] Allergies As of Date: 06/01/2018 Noted Allergy [...] (obstructive sleep apnea) [G47.33] Post-nasal drip [R09.82] Order(s):laibmn-tnxaiarm-ibxqdhj (CREON 3) 3,000-9,500- 15,000 unitTake 1 capsule [...] unit.Disp: 1 EachRfl: 0 SPIROMETRY BASELINE ONLY [7208552] Order #: [id number] FUTURE tiotropium bromide (SPIRIVA RESPIMAT) 1.25 mcg/actuation [...] MCG/A* Inhale 2 Puffs as instructed * IUDEKE-KCYFRNPG-CRZSHCR 3,000* Take 1 capsule by mouth three* [...] Respironics Opti-Life nasal pillows/cradle cushion system. Lou eMndoza MD, [facility] [place] [facility] [address] [place] [address] P: [phone] F: [phone] [email or web address] ? Visit Notes: >> Otilia Branch [facility] Jun 01, 2018 12:39 PM Status: Attested ROS: General: Generally feels short of breath with exertion/rushing. Appetite good. Eyes, Ears, nose, throat: notes post nasal drip. notes rhinorrhea. denies purulent nasal discharge. denies epistaxis. notes hoarseness. Vision stable. Cardiac: denies angina, denies edema, denies orthopnea. GI: notes heartburn. notes dysphagia. denies diarrhea. 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 denies hesitancy. denies nocturia. Menses: Post menopausal Musculoskeletal: denies pain. Neuro: notes headache- temporal, denies focal weakness. denies tremor. Skin: denies rash. Otherwise negative. Prescriptions ordered this encounter Disp Refills Start End QEZMRE-AIJDBFPC-GVETZBV 3,000-9,500-* 06/01/2018 Class: Med Update Route: ORAL [...] 06/02/18 PROGRESS Observed: 06/01/2018 Status: COMPLETED Source: [place] 12:43 PM [facility] [place] REPOSITORY HNO ID: [id number] Author: Lou Mendoza Service: (none) Author Type: Physician Type: Progress Notes Filed: 06/02/2018 1:31 PM Note Text: [facility] [place], 06/01/2018: ? INTERVAL HISTORY: Ms. Barahona is [...] hemoptysis, wheezing, chest tightness. 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 [facility] Mendo[facility] MD, [facility] [place] [facility] [address] [place] [address] BRAIN W/WO CONTRAST Observed: 05/24/2018 Status: F Source: [place] 12:08 PM [facility] REPOSITORY [facility] [place] [place] [address] Brain W/WO Contrast MR#: [id number] Acct: [id number] Name: DEVON BARAHONA Rep #: [id number] : 1960 F 57 From: Osmin Lindsay MD PCP: Kolby Alaniz DO Status: REG CLI Study: Brain W/WO Contrast Date of Exam: 05/24/18 Exam# [id number] Ordering Dr: Kolby Alaniz DO STUDY: MRI [...] Service support , CC: Kolby Alaniz DO Pool Technician: Signed CHIROPRACTIC REPORT Observed: 05/22/2018 Status: F Source: [place] 2:16 PM [facility] [address] [place] [address] OFFICE VISIT Date of Service: 05/22/18 MR#: [id number] Acct: [id number] Name: DEVON BARAHONA Rep #: [id number] : 1960 Provider: Sultana North D.C. Age/Sex: 57/F Location: [facility] Status: Signed Intake Vital Signs05/22/18 [...] BID #180 cap 04/27/18 [Rx Confirmed 05/04/18] jzrhnu-rzotummj-xgbkvwj 3,000-9,500-15,000 unit capsule,delayed releas 12.21380 cap PO TID #90 cap 05/04/18 [Rx Confirmed 05/04/18] [facility] Medical History Abnormal colonoscopy (Acute) Acute asthma [...] Orders Orders: Plan Detail Additional Comments Patients cfd engineer ordered imaging to further identify cause of [...] Additional Codes Procedures - Manipulation: 3-4 regions (59430) 05/22/18 1416 <Electronically signed by Sultana North D.C.> Date [facility] Signature: Date (if applicable) CC: CNCO Observed: 05/15/2018 Status: COMPLETED Source: [place] 12:00 AM [facility] REPOSITORY Letter Text Christina Zamudio DO [facility] [address] [place] [address] Devon Barahona May 15, 2018 Devon Barahona [address] [facility] [address] Dear Devon Barahona: Due to a change in your provider's schedule, it has become necessary to cancel the following appointment: Christina Zamudio DO Date: 07/17/18 Time: 11:20 a.m. We apologize for any inconvenience to you, however your provider would still like to see you. Please call us at [phone] to reschedule your appointment. Sincerely, Appointment Staff CHIROPRACTIC REPORT Observed: 05/10/2018 Status: F Source: [place] 8:05 AM [facility] REPOSITORY [facility] [address] [place] [address] OFFICE VISIT Date of Service: 05/02/18 MR#: [id number] Acct: [id number] Name: DEVON BARAHONA Rep #: [id number] : 1960 Provider: Sultana North D.C. Age/Sex: 57/F Location: [facility] Status: Signed Intake Vital Signs05/02/18 Height 5 ft 3.5 in 05/02/18 Weight: 216 lb 05/02/18 Body Mass Index (BMI) 37.6 Intake Visit [...] BID #180 cap 04/27/18 [Rx Confirmed 05/04/18] kxqzxt-axypfljd-wehjyyl 3,000-9,500-15,000 unit capsule,delayed releas 12.40991 cap PO TID #90 cap 05/04/18 [Rx [...] Additional Codes Procedures - Manipulation: 3-4 regions (02755) 05/10/18 0805 <Electronically signed by [facility] D.[facility].> Date [facility] Cosigncolby Signature: Date (if applicable) CC: INTERNAL MEDICINE Observed: 05/04/2018 Status: F Source: [place] OFFICE VISIT 2:46 PM [facility] [address] [place] [address] OFFICE VISIT Date of Service: 05/04/18 MR#: [id number] Acct: [id number] Name: DEVON BARAHONA Katy Rep #: [id number] : 1960 Provider: Kolby Alaniz DO Age/Sex: 57/F Location[place] [facility] Status: Signed Intake Vital Signs05/04/18 Height 5 [...] BID #180 cap 04/27/18 [Rx Confirmed 05/04/18] eyaorl-idjhxrcw-guhulcp 3,000-9,500-15,000 unit capsule,delayed releas 12.50910 cap PO TID #90 cap 05/04/18 [Rx [...] Judgment: judgment good Office Meds Flucelvax Quad 3207-2205 (PF) Performing Provider: Kolby Alaniz DO Administered by: Radha Wilson on 05/04/18 14:45 Dose Route Admin Location Lot Number Expiration Date NDC Social Science Research Assistant 60 mcg IM Rt Deltoid 071786 12/15/18 60725-153-81 SEQIRUS Assessment AND Plan Problems 1. Gastroesophageal [...] her initial exam. Orders Orders: Medications New: qxjzwc-kgcsdwcf-sobymzw 3,000-9,500- 15,000 unit (Creon)12.43724 caps PO TID 90 caps 2RF ; do not crush/chew; swallow whole OR open/sprinkle on applesce; DNExceed 10,000 units/kg lipase/24 hrs Discontinued: Fluad 2017- 65yr up(PF)45 mcg(15 mcgx3)/0.5 mL intramus0.5 mL IM ONCE 0.5 mL 0RF NS Z23 cular syringe (flu vac 2017 65up-glwEM53Q(PF)) Discont inued Reason: Incorrect ordering MD Plan [...] Kolby Alaniz DO> Date Kolby Alaniz DO [facility] Signature: Date (if applicable) CC: INTERNAL MEDICINE Observed: 04/18/2018 Status: F Source: [place] OFFICE VISIT 4:56 PM [facility] [address] [place] [address] [place] [address] OFFICE VISIT Date of Service: 04/18/18 MR#: [id number] Acct: [id number] Name: DEVON BARAHONA Rep #: [id number] : 1960 Provider: Kolby Alaniz DO Age/Sex: 57/F Location[place] [facility] Status: Signed Intake Vital Signs04/18/18 Height 5 [...] as she has been paying for it sbdm-zdm-dobpytw. She has trouble with her throat feeling [...] but has had to pay for it dhca-hbx-iqueumq she requested me to write it as [...] signed by Kolby Alaniz DO> Date Kolby Barron Signature: Date (if applicable) CC: CHIROPRACTIC REPORT Observed: 04/18/2018 Status: F Source: [place] 4:44 PM [facility] [address] [place] [address] OFFICE VISIT Date of Service: 04/18/18 MR#: [id number] Acct: [id number] Name: DEVON BARAHONA Rep #: [id number] : 1960 Provider: Sultana North D.C. Age/Sex: 57/F Location: [facility] Status: Signed Intake Vital Signs04/18/18 [...] Additional Codes Procedures - Manipulation: 3-4 regions (32044) 04/18/18 9034 <Electronically signed by S[facility]ana [facility] D.C.> Date S[facility]ana North Laura Izzy Signature: Date (if applicable) CC: TESTOSTERONE, SERUM TOTAL Collected: 04/18/2018 Status: F Source: [place] 3:50 PM [facility] REPOSITORY TYPE CODE TESTS RESULT OUT OF [...] CHANGED 07/06/2017 Performed By: #### L509.3000 #### [facility] [address] [place], [place], [address] ERYTHROCYTE SED RATE Collected: 04/18/2018 Status: F Source: [place] 3:40 PM [facility] REPOSITORY TYPE CODE TESTS RESULT OUT OF RANGE REFERENCE UNITS LAB L102.0000 0-30 mm/hr Normal SED RATE 23 Performed By: #### L101.9900 #### [facility] [address] [place], [address] COMPREHENSIVE METABOLIC Collected: 04/18/2018 Status: F Source: [facility] 3:40 PM [facility] REPOSITORY TYPE CODE TESTS RESULT OUT OF [...] Performed By: #### L500.4050, L500.4100, L501.9520 #### [facility] [address] [place], [address] LIPID PROFILE Collected: 04/18/2018 Status: F Source: [place] 3:40 PM [facility] REPOSITORY TYPE CODE TESTS RESULT OUT OF [...] Performed By: #### L500.4050, L500.4100, L501.9520 #### [facility] [address] [place], [address] THYROID STIM HORMONE Collected: 04/18/2018 Status: F Source: [place] (TSH) 3:40 PM [facility] REPOSITORY TYPE CODE TESTS RESULT OUT OF RANGE REFERENCE UNITS LAB L501.9520 0.358-3.74 uIU/mL Normal TSH 0.91 Performed By: #### L500.4050, L500.4100, L501.9520 #### [facility] [address] [facility] [place], [address] TIBIA AND FIBULA Observed: 04/18/2018 Status: F Source: [place] 2 VIEWS 3:38 PM [facility] REPOSITORY [facility] [address] [place] [address] Tibia AND Fibula 2 Views MR#: [id number] Acct: [id number] Name: DEVON BARAHONA Rep #: [id number] : 1960 F 57 From: Homer Ambrose DO PCP: Kolby Alaniz DO Status: REG CLI Study: Tibia AND Fibula 2 Views Date of Exam: 04/18/18 Exam# [id number] Ordering Dr: Kolby Alaniz DO STUDY: X-RAY [...] Homer Ambrose DO at 23:54 EDT Tel [phone], Service support , CC: Kolby Alaniz DO Pool Technician: Signed CHIROPRACTIC REPORT Observed: 04/06/2018 Status: F Source: [place] 2:36 PM [facility] REPOSITORY [facility] [address] [place] [address] OFFICE VISIT Date of Service: 04/06/18 MR#: [id number] Acct: [id number] Name: DEVON BARAHONA Rep #: [id number] : 1960 Provider: Sultana North D.C. Age/Sex: 57/F Location: [facility] Status: Signed Intake Vital Signs04/06/18 [...] Additional Codes Procedures - Manipulation: 3-4 regions (80334) 04/06/18 1436 <Electronically signed by S[facility]ana [facility] D.C.> Date [facility]. Cosigner Signature: Date (if applicable) CC: CHIROPRACTIC REPORT Observed: 03/23/2018 Status: F Source: [place] 12:08 PM [facility] [address] [place] [address] OFFICE VISIT Date of Service: 03/21/18 MR#: [id number] Acct: [id number] Name: DEVON BARAHONA Katy Rep #: [id number] : 1960 Provider: Sultana North D.C. Age/Sex: 57/F Location: [facility] Status: Signed Intake Vital Signs03/21/18 [...] mg PO ONCE 11/08/17 [History Confirmed 11/08/17] [facility] Medical History Acute asthma (Acute) Arthritis (Acute) [...] Additional Codes Procedures - Manipulation: 3-4 regions (53959) 03/23/18 1208 <Electronically signed by Sultana North D.C.> Date [facility] D[facility]. Cosigner Signature: Date (if applicable) CC: CHIROPRACTIC REPORT Observed: 03/15/2018 Status: F Source: [place] 8:20 AM [facility] [address] [place] [address] OFFICE VISIT Date of Service: 03/13/18 MR#: [id number] Acct: [id number] Name: DEVON BARAHONA Rep #: [id number] : 1960 Provider: Sultana North D.C. Age/Sex: 57/F Location[place] [facility] Status: Signed Intake Vital Signs03/13/18 Height 5 [...] mg PO ONCE 11/08/17 [History Confirmed 11/08/17] [facility] Medical History Acute asthma (Acute) Arthritis (Acute) [...] Additional Codes Procedures - Manipulation: 3-4 regions (00649) 03/15/18 0820 <Electronically signed by Sultana North D.C.> Date Sultana Brownign Signature: Date (if applicable) CC: CHIROPRACTIC REPORT Observed: 03/06/2018 Status: F Source: [place] 2:05 PM [facility] [address] [place] [address] OFFICE VISIT Date of Service: 03/06/18 MR#: [id number] Acct: [id number] Name: DVEON BARAHONA Rep #: [id number] : 1960 Provider: Sultana North D.C. Age/Sex: 57/F Location: [facility] Status: Signed Intake Vital Signs03/06/18 [...] Additional Codes Procedures - Manipulation: 3-4 regions (13409) 03/06/18 1405 <Electronically signed by Sultana North D.C.> Date S[facility]ana [facility] D.[facility]. Cosigner Signature: Date (if applicable) CC: CHIROPRACTIC REPORT Observed: 02/09/2018 Status: F Source: [place] 1:41 PM [facility] [address] [place] [address] OFFICE VISIT Date of Service: 02/06/18 MR#: [id number] Acct: [id number] Name: DEVON BARAHONA Rep #: [id number] : 1960 Provider: Sultana North D.C. Age/Sex: 57/F Location: [facility] Status: Signed Intake Vital Signs02/06/18 [...] Additional Codes Procedures - Manipulation: 1-2 regions (23072) 02/09/18 1341 <Electronically signed by Sultana North D.C.> Date S[facility]ana [facility] D.[facility]. Cosigner Signature: Date (if applicable) CC: NUCLEAR STRESS Observed: 02/08/2018 Status: F Source: [place] (CARD) 9:03 AM [facility] REPOSITORY NAME : DEVON BARAHONA PID : [id number] : 1960 Gender : Female Race : ORD : [id number] Procedure Date : Feb 08 2018 09:03:36 Edit Date : Feb 13 2018 12:41:11 Conclusions:PLEASE REFER TO IMAGING SECTION IN [facility] FOR COMPLETE INTERPRETATION OF STRESS TEST AND MYOCARDIAL PERFUSION IMAGING Protocol Name : JANNETHISCANTONIO Time In Exercise Phase : 00:06:00 Max. [...] CARDIAC PERF Observed: 02/08/2018 Status: F Source: [place] STRESS/PHARM 8:21 AM [facility] REPOSITORY * * *Final Report* [...] 60 minutes later. See administered doses below. [facility] Date of service: 02/08/2018 8:21:45 AM [...] normal sinus rhythm. Stress complications: none. Final Pool Technician: KATELIN Sumnerriwaqas Date/Time: Feb 08 2018 8:21A Dictated by : CHRISTINA ZAMUDIO DO This examination was interpreted and the report reviewed and electronically signed by: CHRISTINA ZAMUDIO DO on Feb 08 2018 12:58PM EST [id number] Observed: 02/01/2018 Status: COMPLETED Source: [place] 12:28 PM [facility] REPOSITORY HNO ID: [id number] Author: Dayami Duggan Service: (none) Author Type: [...] quit by winter due to having her xntpah-fk-zbl living with her and he requires oxygen. had been sick from June to December and no longer working due to COPD. COPD - Follows with Dr. Mendoza every 6 months but due to recent PFT they want her to f/u in 3-4 months. Saw PROFESSOR OF MANAGEMENT Ivet Medellin in December. States the Tudorza 400 mcg 1 inhalation twice daily does help, but recently feels more sob. Has had increased anxiety lately due to taking care of her fdmclo-ft-efg. Cardio - Follows with Dr. Olivarez every 6 months. Was scheduled for a Stress Test but had to cancel due to her hfpqqs-wb-lez being d/c from TCU. Admits to sob [...] Capsulotomy - EGD 05/24/14 - EGD W/O [facility] SPECIMEN W/BX 04/17/10 - EXCISION MALIGNANT LESIONS,VUL 1996 Dr. Rehman. No recent F/U. in vulvar region - HEART CATHETERIZATION 04/2011 normal no CAD - MAMMO MAMMOGRAM 2009 [facility] - PAST SURGICAL HISTORY OF age [...] - SLING OPER STRES INCONTINENCE 11/26/10, 04/2011 [facility] surgery Family History FAMILY HISTORY Problem Relation [...] Consult to GI 3 mo f/u Dayami D Ronenbrock, MD The documentation for this note was completed by Mitzi Avalos Ma acting as scribe for Dayami Duggan MD. February 01, 2018 12:28 PM. CNOV Observed: 02/01/2018 Status: COMPLETED Source: [place] 12:[address] [facility] REPOSITORY Office Visit (FAMPWS) DEVON BARAHONA ([id number]) 1960 F Date Time Provider Department 02/01/18 12:20 PM DAYAMI DUGGAN FAMPWS During your visit today, we recorded the [...] quit by winter due to having her otryzp-nf-lhd living with her and he requires oxygen. had been sick from June to December and no longer working due to COPD. COPD - Follows with Dr. Mendoza every 6 months but due to recent PFT they want her to f/u in 3-4 months. Saw PROFESSOR OF MANAGEMENT Ivet Medellin in December. States the Tudorza 400 mcg 1 inhalation twice daily does help, but recently feels more sob. Has had increased anxiety lately due to taking care of her cxzydd-qb-xae. Cardio - Follows with Dr. Olivarez every 6 months. Was scheduled for a Stress Test but had to cancel due to her hnxyxt-ts-ldo being d/c from TCU. Admits to sob [...] 03/17/2010 - COPD (chronic obstructive pulmonary disease) ([facility]) - Esophagitis, unspecified - Family history of [...] Capsulotomy - EGD 05/24/14 - EGD W/O [facility] SPECIMEN W/BX 04/17/10 - EXCISION MALIGNANT LESIONS,VUL [address] Dr. Rehman. No recent F/U. in vulvar region - HEART CATHETERIZATION 04/2011 normal no CAD - MAMMO MAMMOGRAM 2009 [facility] - PAST SURGICAL HISTORY OF age [...] - SLING OPER STRES INCONTINENCE 11/26/10, 04/2011 [facility] main [facility] Family History FAMILY HISTORY Problem Relation [...] 2018 12:28 PM. Referring Provider: DAYAMI DUGGAN [[id number]] Allergies As of Date: 02/01/2018 Noted Allergy [...] days.Disp: 360 tabletRfl: 0 CONSULT TO GASTROENTEROLOGY [8207] Order #: [id number]: 1 Prescriptions as of 02/01/2018 Sig: LORAZEPAM [...] CHIROPRACTIC REPORT Observed: 01/23/2018 Status: F Source: [place] 9:42 AM [facility] [address] [place] [address] OFFICE VISIT Date of Service: 01/17/18 MR#: [id number] Acct: [id number] Name: DEVON BARAHONA Rep #: [id number] : 1960 Provider: Sultana North D.C. Age/Sex: 57/F Location: [facility] Status: Signed Intake Vital Signs01/17/18 Height 5 [...] Additional Codes Procedures - Manipulation: 1-2 regions (15772) 01/23/18 0942 <Electronically signed by Sultana North D.C.> Date Sultana Magana Signature: Date (if applicable) CC: PROGRESS Observed: 01/11/2018 Status: COMPLETED Source: [place] 2:10 PM [facility] REPOSITORY O ID: [id number] Author: Christina Zamudio Service: (none) Author Type: [...] Capsulotomy - [facility] 05[facility]24[facility]14 [facility]X 04/17/10 - EXCISION MALIGNANT LESIONS,VUL 1996 Dr. Rehman. No recent F/U. in vulvar region - HEART CATHETERIZATION 04/2011 normal no CAD - MAMMO MAMMOGRAM 2009 [facility] - PAST SURGICAL HISTORY OF age [...] - SLING OPER STRES INCONTINENCE 11/26/10, 04/2011 [facility] FAMILY HISTORY Problem Relation [...] JVD, carotids well felt, no bruits. CARDIAC: Temperance palpable in the 5th intercostal space mid [...] MR ECHO 06/15/[address] Fernandez in [place]: CONCLUSIONS: - Technically difficult exam due to [...] are no gross valvular abnormalities. - Prior [place] echo of 04/25/15 is similar. Regadenoson SPECT MPI (today) moderate size, mild intensity defect in mid to distal anterior wall c/w ischemia (LAD/Dx). CATH 04/22/11, nl coronaries, increase LVEDP 20 Cholesterol (mg/dL) Date Date Value Low High Status 05/26/2011 291* 100 199 Final HDL Cholesterol (mg/dL) Date Date Value Low High Status 05/26/2011 54* >55 Final LDL Chol, [place] (mg/dL) Date Date Value Low High Status [...] me if there are any questions. Christina Zamudio DO, FACC, FCCP, FACOI Dayami Duggan MD [address] [place] [address] CNOV Observed: 01/11/2018 Status: COMPLETED Source: [place] 2:00 PM [facility] REPOSITORY Office Visit (CARDMM) DEVON BARAHONA ([id number]) 1960 F Date Time Provider Department 01/11/18 [...] Capsulotomy - EGD 05/24/14 - EGD W/O [facility] SPECIMEN W/BX 04/17/10 - EXCISION MALIGNANT LESIONS,VUL 1996 Dr. Rehman. No recent F/U. in vulvar region - HEART CATHETERIZATION 04/2011 normal no CAD - MAMMO MAMMOGRAM 2009 [facility] - PAST SURGICAL HISTORY OF age [...] - SLING OPER STRES INCONTINENCE 11/26/10, 04/2011 [facility] main campus surgery FAMILY HISTORY Problem Relation [...] JVD, carotids well felt, no bruits. CARDIAC: Temperance palpable in the 5th intercostal space mid [...] MR ECHO 06/15/[address] Fernandez in [place]: CONCLUSIONS: - Technically difficult exam due to [...] are no gross valvular abnormalities. - Prior [place] echo of 04/25/15 is similar. Regadenoson SPECT MPI (today) moderate size, mild intensity defect in mid to distal anterior wall c/w ischemia (LAD/Dx). CATH 04/22/11, nl coronaries, increase LVEDP 20 Cholesterol (mg/dL) Date Date Value Low High Status 05/26/2011 291* 100 199 Final HDL Cholesterol (mg/dL) Date Date Value Low High Status 05/26/2011 54* >55 Final LDL Chol, [place] (mg/dL) Date Date Value Low High Status [...] if there are any questions. Christina Zamudio, , FACC, FCCP, FACOI Dayami Duggan MD [address] [place] [address] Referring Provider: DAYAMI DUGGAN [[id number]] Allergies As of Date: 01/11/2018 Noted Allergy [...] apnea) [G47.33] Panlobular emphysema (HCC) [J43.1] Order(s):ECHO [370522] Order #: [id number]: 1 FUTURE PHARMACOLOGIC STRESS W/NUC IMAGING [7444199] Order #: [id number]: 1 NM CARDIAC PERF STRESS/PHARM [9284670] Order #: [id number] FUTURE Prescriptions as of 01/11/2018 Sig: ZOLPIDEM [...] Joanna Chaparro Ma 01/11/2018 1:55 PM >> RUDOLPH AGUIRRE JOANNA TueJan 11, 2018 1:55 PM Not taking ALBUTEROL SULFATE 90 MCG/ACTUATION BREATH ACTIVATED POWDER INHALER >> Joanna Chaparro Ma 01/11/2018 1:54 PM >> RUDOLPH AGUIRRE JOANNA TueJan 11, 2018 1:54 PM Not taking LACTOBACILLUS COMBINATION NO.10 20 BILLION CELL CAPSULE >> Joanna Chaparro Ma 01/11/2018 1:55 PM >> RUDOLPH AGUIRRE JOANNA TueJan 11, 2018 1:55 PM Not taking CHOLECALCIFEROL (VITAMIN D3) 5,000 UNIT DISINTEGRATING TABLET >> Joanna Chaparro Ma 01/11/2018 1:54 PM >> RUDOLPH AGUIRRE JOANNA TueJan 11, 2018 1:54 PM Not taking [...] CHIROPRACTIC REPORT Observed: 12/08/2017 Status: F Source: [place] 2:12 PM [facility] [address] [place] [address] OFFICE VISIT Date of Service: 12/08/17 MR#: [id number] Acct: [id number] Name: DEVON BARAHONA Rep #: [id number] : 1960 Provider: Sultana North D.C. Age/Sex: 57/F Location: [facility] Status: Signed Intake Vital Signs12/08/17 Height 5 [...] mg PO ONCE 11/08/17 [History Confirmed 11/08/17] [facility] Medical History Acute asthma (Acute) Arthritis (Acute) [...] Additional Codes Procedures - Manipulation: 1-2 regions (73148) Procedures - Traction, Mechanical: Yes (49522) 12/08/17 1412 <Electronically signed by Sultana North D.C.> Date Sultana North D.C. Cosigner Signature: Date (if applicable) CC: CHIROPRACTIC REPORT Observed: 11/28/2017 Status: F Source: [place] 3:01 PM [facility] [address] [place] [address] OFFICE VISIT Date of Service: 11/24/17 MR#: [id number] Acct: [id number] Name: DEVON BARAHONA Rep #: [id number] : 1960 Provider: Sultana Dossi, D.C. Age/Sex: 57/F [place] [facility] Status: Signed Intake Vital Signs11/24/17 Height 5 [...] tab PO Q4H PRN PRN #30 tab 11/08/14 [Rx] esomeprazole magnesium 20 mg capsule,delayed release 20 mg PO QDAY 11/08/17 [History Confirmed 11/08/17] lactobacillus combination no.8 3 billion cell capsule 3,000 mmu cells PO QDAY 11/08/17 [History Confirmed 11/08/17] rosuvastatin 10 mg tablet 10 mg PO ONCE 11/08/17 [History Confirmed 11/08/17] [facility] Medical History Acute asthma (Acute) Arthritis (Acute) [...] Additional Codes Procedures - Traction, Mechanical: Yes (28215) Procedures - Manipulation: 3-4 regions (74040) 11/28/17 1501 <Electronically signed by Sultana North D.C.> Date Sultana North D.C. Cosigner Signature: Date (if applicable) CC: PROGRESS Observed: 11/21/2017 Status: COMPLETED Source: [place] 2:[address] [facility] REPOSITORY HNO ID: [id number] Author: Ivet Medellin Service: (none) Author Type: Physician Hvac Project Engineer Type: Progress Notes Filed: 11/21/2017 3:20 PM Note Text: [facility] [place], 11/21/2017: ? INTERVAL HISTORY: Ms. Barahona is here for follow up of COPD and obstructive sleep apnea. Since the 04/2017 visit, the patient has not sought MD, ED or hospital care for exacerbation. ? She has been compliant with prescribed Rx. Daily cough; occasionally with clear sputum. No hemoptysis, wheezing, chest tightness. Exertional dyspnea, stable. 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 GI: Heartburn, constantly. No dysphagia, diarrhea. Uro/PRIMARY CARE SALES REPRESENTATIVE: No dysuria, hesitancy, nocturia. Musculoskeletal: No pain. [...] of my answers ? Ivet Medellin PA-C [facility] [address] [place] [address] ? CNOV Observed: 11/21/2017 Status: COMPLETED Source: [place] 2:[address] [facility] REPOSITORY Office Visit (PULMWS) DEVON BARAHONA ([id number]) 1960 F Date Time Provider Department 11/21/17 2:30 PM IVET MEDELLIN PULWS During your visit today, we recorded the following information about you: Pulse Respiration Blood pressure Weight 74/minute 16/minute 120/80 100.7 kg Height 1.6 m Otilia Branch GABRIEL 11/21/2017 2:21 PM Signed Intake information documented in the prior visit with Karen Spears, TELEVISION JOURNALIST today. Ivet Medellin 11/21/2017 3:20 PM Signed [facility], 11/21/2017: ? INTERVAL HISTORY: Ms. Barahona is here for follow up of COPD and obstructive sleep apnea. Since the 04/2017 visit, the patient has not sought MD, ED or hospital care for exacerbation. ? She has been compliant with prescribed Rx. Daily cough; occasionally with clear sputum. No hemoptysis, wheezing, chest tightness. Exertional dyspnea, stable. 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 GI: Heartburn, constantly. No dysphagia, diarrhea. Uro/PRIMARY CARE SALES REPRESENTATIVE: No dysuria, hesitancy, nocturia. Musculoskeletal: No pain. [...] of my answers ? Ivet Medellin PA-C [facility] [place] [address] [place] [address] ? Ivet Medellin 11/21/2017 3:18 PM Signed [...] with any sleep. Referring Provider: LOU MENDOZA [[id number]] Allergies As of Date: 11/21/2017 Noted Allergy [...] on CPAP [G47.33, Z99.89] Order(s):SPIROMETRY BASELINE ONLY [6379630] Order #: [id number] FUTURE Prescriptions as of 11/21/2017 Sig: ZOLPIDEM [...] with any sleep. Visit Notes: >> Otilia Brnach LPN Mon November 21, 2017 2:21 PM [...] CHIROPRACTIC REPORT Observed: 11/15/2017 Status: F Source: [place] 2:00 PM [facility] [address] [place] [address] OFFICE VISIT Date of Service: 11/14/17 MR#: [id number] Acct: [id number] Name: DEVON BARAHONA Rep #: [id number] : 1960 Provider: Sultana North D.C. Age/Sex: 57/F [place] [facility] Status: Signed Intake Vital Signs11/14/17 Height 5 [...] Additional Codes Procedures - Manipulation: 1-2 regions (83165) 11/15/17 1400 <Electronically signed by Sultana North D.C.> Date Sultana North D.C. Cosigner Signature: Date (if applicable) CC: CHIROPRACTIC REPORT Observed: 11/10/2017 Status: F Source: [place] 4:16 PM [facility] [address] [place], [place] [id number] OFFICE VISIT Date of Service: 11/08/17 MR#: [id number] Acct: [id number] Name: DEVON BARAHONA Rep #: [id number] : 1960 Provider: Sultana North D.C. Age/Sex: 57/F Location: [facility] Status: Signed Intake Vital Signs11/08/17 Height 5 [...] imaging that patient brought with her. Lumbar rotation-LA. RIL:, LIL:PI. Decreased L5 disc height. Facet arthropathy at L4/L5. Goals Decrease pain Increase ROM Follow Up 1 Week Coding Level of Care Code Off vis,new,level 3 Diagnoses Back pain M54.9 Segmental and somatic dysfunction of lumbar region M99.03 Segmental and somatic dysfunction of thoracic region M99.02 Segmental and somatic dysfunction of pelvic region M99.05 Additional Codes Procedures - Manipulation: 3-4 regions (36206) 11/10/17 4076 <Electronically signed by Sultana North D.C.> Date Sultana North D.C. Cosigner Signature: Date (if applicable) CC: XR LUMBAR 3V Observed: 10/31/2017 Status: F Source: [place] AP/LAT/L5-S1 2:58 PM [facility] REPOSITORY * * *Final Report* * [...] spine are presented. FINDINGS: There are five mdp-owk-wgrppky lumbar vertebra. No fracture or subluxations are noted. The disc spaces are well preserved. There is mild osteophyte formation. IMPRESSION: Lumbar spine mild degenerative changes. Pool Technician: PSCB Transcribe Date/Time: Oct 31 2017 7:38P Dictated by : SUE MURRAY MD This examination was interpreted and the report reviewed and electronically signed by: SUE MURRAY MD on Oct 31 2017 7:39PM EST [id number] PROGRESS Observed: 10/31/2017 Status: COMPLETED Source: [place] 2:[address] [facility] REPOSITORY HNO ID: [id number] Author: Logan Aguilera (Rt) Service: (none) Author Type: High School Science Teacher Type: Progress Notes Filed: 10/31/2017 2:58 PM [...] PM PROGRESS Observed: 10/31/2017 Status: COMPLETED Source: [place] 1:[address] 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 She did PT in past for [...] - ALIYA (obstructive sleep apnea) 02/17/2011 - [facility] - PAST MEDICAL HISTORY OF 1996 vulva cancer - Ulcer Previous Surgical History PAST SURGICAL HISTORY Procedure Laterality Date - BX OF BREAST; INCISIONAL Left 05/17/2017 - COLONOSCOPY 05/24/14 Repeat due 2016 - COLONOSCOPY 03/30/16 tubular adenoma, repeat in 3 years - DISCISSION,2ND CATARACT,LASER Right 10/14/2015 Yag Capsulotomy - EGD 05/24/14 - EGD W/O [facility] SPECIMEN W/BX 04/17/10 - EXCISION MALIGNANT LESIONS,VUL 1996 Dr. Rehman. No recent F/U. in vulvar region - HEART CATHETERIZATION 04/2011 normal no CAD - MAMMO MAMMOGRAM 2009 [facility] - PAST SURGICAL HISTORY OF age [...] - SLING OPER STRES INCONTINENCE 11/26/10, 04/2011 [facility] surgery Family History FAMILY HISTORY Problem Relation [...] PM. CNOV Observed: 10/31/2017 Status: COMPLETED Source: [place] 1:[address] 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 She did PT in past for [...] Capsulotomy - EGD 05/24/14 - [facility] W/BX 04/17/10 - EXCISION MALIGNANT LESIONS,VUL 1996 Dr. Rehman. No recent F/U. in vulvar region - HEART CATHETERIZATION 04/2011 normal no CAD - MAMMO MAMMOGRAM 2009 [facility] - PAST SURGICAL HISTORY OF age [...] - SLING OPER STRES INCONTINENCE 11/26/10, 04/2011 [facility] main [facility] surgery Family History FAMILY HISTORY Problem Relation [...] Upset Date Reviewed: 10/31/2017 Reviewed by: Ruchi Mcdermott Ma - Fully Assessed Reason for Visit: Pain [78] Cmt: right thigh Primary Visit Diagnosis:DDD (degenerative disc disease), lumbar [M51.36] Other Visit Diagnoses:Other chronic back pain [M54.9, G89.29] Sciatic nerve pain, right [M54.31] Muscle twitch [R25.3] Order(s):XR LUMBAR GENERAL 3V AP/LAT/L5-S1 [[id number]] Order #: [id number] FUTURE Prescriptions as of 10/31/2017 Sig: LORAZEPAM [...] ED NOTE Observed: 10/26/2017 Status: COMPLETED Source: [place] 10:49 AM [facility] [place] REPOSITORY HNO ID: [id number] Author: Venita (Rn) CÉSAR Crawford Service: Emergency Medicine Author Type: Registered Nurse Type: ED Notes Filed: 10/26/2017 10:50 AM Note Text: Discharge instructions reviewed with patient via teachback. Pt awake and alert, respirations stable. Pt verbalizes understanding. No further questions for this RN. XR CHEST 1V FRONTAL Observed: 10/26/2017 Status: F Source: [facility] 10:35 AM [facility] REPOSITORY * * *Final Report* [...] acute abnormality. No radiopaque foreign body noted. Pool Technician: ALEXX Transcribe Date/Time: Oct 26 2017 10:36A Dictated by : JANESSA GAUTAM MD This examination was interpreted and the report reviewed and electronically signed by: JANESSA GAUTAM MD on Oct 26 2017 10:37AM EST [id number] ED PROV NOTE Observed: 10/26/2017 Status: COMPLETED Source: [place] 10:01 AM CL[facility] OTHER CAMPUS REPOSITORY HNO ID: [id number] Author: Karen Hayes (Pa) Service: (none) Author Type: Physician Hvac Project Engineer Type: ED Provider Notes Filed: 10/26/2017 10:46 [...] and/or lung. Patient does not work for [employer], has no GI symptoms, no shortness of [...] Capsulotomy - EGD 05/24/14 - EGD W/O [facility] SPECIMEN W/BX 04/17/10 - EXCISION MALIGNANT LESIONS,VUL 1996 Dr. Rehman. No recent F/U. in vulvar region - HEART CATHETERIZATION 04/2011 normal no CAD - MAMMO MAMMOGRAM 2009 [facility] - PAST SURGICAL HISTORY OF age [...] - SLING OPER STRES INCONTINENCE 11/26/10, 04/2011 [facility] surgery FAMILY HISTORY Problem Relation [...] ED NOTE Observed: 10/26/2017 Status: COMPLETED Source: [place] 9:35 AM [facility] REPOSITORY HNO ID: [id number] Author: Aracelis (Rn) CÉSAR Murdock Service: (none) Author Type: Registered Nurse Type: ED Notes Filed: 10/26/2017 9:36 AM Note Text: Patient presents with c/o worm under her skin in her upper back on right side-by shoulder blade that itches PROGRESS Observed: 09/12/2017 Status: COMPLETED Source: [place] 2:49 PM [facility] [place] REPOSITORY HNO ID: [id number] Author: Bernard Guthrie Service: (none) Author Type: [...] day. This note was partially generated using Edmodo voice recognition system and as such may contain grammatical or word errors PROGRESS Observed: 09/12/2017 Status: COMPLETED Source: [place] 1:21 PM CL[facility] OTHER CAMPUS REPOSITORY HNO ID: [id number] Author: Rae Dominguez) JANE Almanza Service: (none) Author Type: Clinical High School Science Teacher Type: Progress Notes Filed: 09/12/2017 1:22 PM Note Text: NAME:Devon Barahona DATE: September 12, 2017 [facility]#: [id number] Pelvis X-Ray and Hip X-Ray COMPLETED TECH ID SIGN: RAE ALMANZA XR HIP 3V PELV+ Observed: 09/12/2017 Status: F Source: [place] AP/LAT LT 1:05 PM CLIN[facility] OTHER CAMPUS [...] seen. IMPRESSION: Moderate narrowing both hip joints. Pool Technician: PSCB Transcribe Date/Time: Sep 12 2017 2:02P Dictated by : CINDY DURBIN DO This examination was interpreted and the report reviewed and electronically signed by: CINDY DURBIN DO on Sep 12 2017 4:33PM EST [id number] COMP METABOLIC PANEL Collected: 09/01/2017 Status: F Source: [place] 2:[address] [facility] REPOSITORY TYPE CODE TESTS RESULT OUT OF REFERENCE UNITS RANGE LAB TP 6.3-8.0 g/dL Protein, Total 7.1 LAB ALB 3.9-4.9 g/dL Albumin 4.3 LAB CA 8.5-10.2 mg/dL Calcium, Total 9.4 LAB TBIL 0.2-1.3 mg/dL Bilirubin, Total 1.0 LAB ALKP 32-117 U/L Alkaline Phosphatase 111 LAB AST 13-35 U/L AST 17 LAB GLU 74-99 mg/dL Glucose 77 Result Comment: The [place] Diabetes Association (ADA) provides guidance for cutoff [...] Standards of Medical Care in Diabetes 2016, [place] Diabetes Association. Diabetes Care. 2016.39(Suppl 1). LAB [...] accurately reflect actual GFR. Performed By: #### CMP, LIPB #### [facility] [address] [place], [place] [address] LIPID PANEL, BASIC Collected: 09/01/2017 Status: F Source: [place] 2:21 PM [facility] REPOSITORY TYPE CODE TESTS RESULT [...] Desk Reference: National Heart, Lung, and Blood [place]. National Institutes of Health. 2001: NIH Publication No. 01-3305. 2. An International Atherosclerosis Society position paper: global recommendations for the management of dyslipidemia: executive summary, Atherosclerosis. 2014: 232(2):410-413. Performed By: #### CMP, LIPB #### [facility] [address] [place] [id number] PROGRESS Observed: 09/01/2017 Status: COMPLETED Source: [place] 1:20 PM [facility] REPOSITORY HNO ID: [id number] Author: Dayami Duggan Service: (none) Author Type: [...] Capsulotomy - EGD 05/24/14 - EGD W/O [facility] SPECIMEN W/BX 04/17/10 - EXCISION MALIGNANT LESIONS,VUL [address] Dr. Rehman. No recent F/U. in vulvar region - HEART CATHETERIZATION 04/2011 normal no CAD - MAMMO MAMMOGRAM 2009 [facility] - PAST SURGICAL HISTORY OF age [...] - SLING OPER STRES INCONTINENCE 11/26/10, 04/2011 [facility] Family History FAMILY HISTORY Problem Relation [...] Arthritis - ICD9: 716.90, ICD10: M19.90 6. ALIYA (obstructive sleep apnea) - ICD9: 327.23, ICD10: G47.33 Continue CPAP 7. Pain of left hip joint - ICD9: 719.45, ICD10: M25.552 Consult Ortho Follow up in 3 months with fasting labs prior. Dayami Duggan MD The documentation for this note was completed by Ruchi Mcdermott Ma acting as scribe for Dayami Duggan MD. September 01, 2017 1:20 PM. ALLERGIES ALLERGIES DATE TYPE / CODE NAME / CODE REACTION SEVERITY SOURCE 07/25/2018 Drug hydrocodone Upset Stomach Unknown [place] Allergy/416 bitartrate/Z5458250 Community 409385[facility] [address] 07/25/2018 Drug oxycodone Other Unknown [place] Allergy/416 HCl/Y232093419(RXNO Community 802613([facility] ED CT) Repository 07/25/2018 Drug propoxyphene Vomiting Unknown [place] Allergy/416 HCl/R128724992(RXNO Community 623725([facility] ED CT) Repository 07/25/2018 Drug aloe Other Unknown [place] Allergy/416 vera/B846869261(RXN Community 063403([facility] ED CT) Repository 07/25/2018 Drug doxycycline/J280851 Other Unknown [place] Allergy/416 748(RXNORM) Community 613261([facility] ED CT) Repository 06/01/2018 DRUG PENICILLIN OTHER: SEE C [facility] INGREDI/419 Other [place] 745728([facility] Repository ED CT) 09/08/2012 DRUG DOXYCYCLINE OTHER: SEE C [facility] INGREDI/419 Main [place] 299235([facility] Repository ED CT) 03/26/2010 DRUG ALOE VERA RASH [facility] INGREDI/419 Main [place] 622101(SNOM Repository ED CT) 03/17/2010 DRUG/049127 HYDROCODONE-ACETAMI GI UPSET [facility] 003(SNOMED NOPHEN Other [place] CT) Repository 03/17/2010 DRUG PROPOXYPHENE HCL GI UPSET [facility] INGREDI/419 Main [place] 526209(SNOM Repository ED CT) 03/17/2010 DRUG/529388 OXYCODONE-ACETAMINO [facility] 003(SNOMED PHEN Main [place] CT) Repository 03/17/2010 DRUG/978723 HYDROCODONE-ACETAMI GI UPSET [facility] 003(SNOMED NOPHEN Main [place] CT) Repository ENCOUNTERS ENCOUNTERS ADMIT/DISCHARGE ACCOUNT ADMITTING ENCOUNTER LOCATION SOURCE NUMBER CLASS 08/10/2018 [id number] Ambulatory [facility] ing:EN Repository 08/09/2018 [id number] Ambulatory [facility] ing:MTLAB Repository 08/08/2018 [id number] Ambulatory BMSBuilding:B Gopal MS.[facility] Repository 07/25/2018/07/25/19 [id number] Ambulatory BMSBuilding:B Lott 19 MS.[facility] Repository 07/24/2018/07/24/19 [id number] Emergency [address] Repository 07/19/2018/07/19/19 [id number] Emergency [address] Repository 07/17/2018/07/17/20 [id number] Emergency [address] Repository 07/14/2018/07/14/20 [id number] Ambulatory BMSBuilding:B Gopal 18 MS.[facility] Repository 07/05/2018/07/05/20 [id number] Emergency [address] ing:ED Repository 07/05/2018/07/05/20 [id number] Ambulatory [address] ing:ENRoom: Repository AC-TBA 06/26/2018/06/26/20 [id number] Ambulatory BMSBuilding:B Lott 18 MS.[facility] Repository 06/22/2018/06/22/20 [id number] Ambulatory BMSBuilding:B Lott 18 MS.[facility] Repository 06/15/2018 [id number] [facility] ing:OPBI Repository 06/01/2018/06/05/20 [id number] Ambulatory [address] Repository 06/01/2018 [id number] Ambulatory [facility] Repository 06/01/2018 [id number] Ambulatory BMSBuilding:B [place]ott MS[facility] Repository 05/24/2018 [id number] Ambulatory [facility] Hospital ing:MRI Repository 05/22/2018/05/22/20 [id number] Ambulatory BMSBuilding:B Gopal 18 [facility] Repository 05/04/2018/05/04/20 [id number] Ambulatory BMSBuilding:B Gopal 18 MS.[facility] Repository 05/02/2018/05/02/20 [id number] Ambulatory BMSBuilding:B Gopal 18 [facility] Repository 04/18/2018 [id number] [facility] ing:MTLAB Repository 04/18/2018/04/18/20 [id number] Ambulatory BMSBuilding:B Lott 18 MS.[facility] Repository 04/18/2018/04/18/20 [id number] Ambulatory BMSBuilding:B Gopal 18 [facility] Repository 04/06/2018/04/06/20 [id number] Ambulatory BMSBuilding:B Gopal 18 [facility] Repository 03/21/2018/03/21/20 [id number] Ambulatory BMSBuilding:B Gopal 18 [facility] Repository 03/13/2018/03/13/20 [id number] Ambulatory BMSBuilding:B [place] 18 [facility] Repository 03/06/2018/03/06/20 [id number] Ambulatory BMSBuilding:B Gopal 18 [facility] Repository 02/08/2018 [id number] Ambulatory [facility] Repository 02/08/2018 [id number] Ambulatory [facility] Repository 02/08/2018 [id number] Ambulatory [facility] Repository 02/06/2018/02/07/20 [id number] Ambulatory BMSBuilding:B Gopal 18 [facility] Repository 02/01/2018/02/04/20 [id number] Ambulatory [address] Repository 01/17/2018/01/18/20 [id number] Ambulatory BMSBuilding:B Gopal 18 [facility] Repository 01/11/2018/01/20/20 [id number] Ambulatory [address] Repository 01/04/2018 [id number] Ambulatory BMSBuilding:B [facility]opal [facility] Repository 12/22/2017/12/23/19 [id number] Ambulatory BMSBuilding:B Gopal 18 [facility] Repository 12/15/2017 [id number] Ambulatory BMSBuilding:B [facility]opal [facility] Repository 12/08/2017/12/09/19 [id number] Ambulatory BMSBuilding:B Lott 18 [facility] Repository 11/24/2017/11/25/19 [id number] Ambulatory BMSBuilding:B [place] 18 [facility] Repository 11/21/2017/11/25/19 [id number] Ambulatory [address] Repository 11/21/2017/11/24/19 [id number] Ambulatory [address] Repository 11/14/2017/11/15/19 [id number] Ambulatory BMSBuilding:B L[place] 18 [facility] Repository 11/08/2017/11/09/19 [id number] Ambulatory BMSBuilding:B Gopal 18 [facility] Repository 10/31/2017/11/01/19 [id number] Ambulatory [address] Repository 10/31/2017/11/02/19 [id number] Ambulatory [address] Repository 10/26/2017/10/27/19 [id number] Emergency [address] Repository 09/12/2017/09/13/19 [id number] Ambulatory [address] Repository 09/12/2017/09/12/19 [id number] Ambulatory [address] Repository 09/01/2017/09/01/19 [id number] Ambulatory [address] Repository 09/01/2017/09/01/19 [id number] Ambulatory [address] Repository PAYERS PAYERS ENCOUNTER GUARANTOR PAYER SUBSCRIBER SOURCE 08/10/2018 DEVON L Primary DEVON L Gopal [id number] Insurance:CARESOURCEP DOBBINSDOB: [facility] white Number: [id number] [place], [place] [id number] Repository 05747Nzx: ([phone]) Date:2018-07-14P O [phone] () [address]ATTN: [place] [address]JO: 08/10/2018 Secondary NOT GIVENUNK Gopal Insurance:SELF PAY [facility] Number: Effective Repository Date:2018-07-14 08/09/2018 DEVON L Primary DEVON L Lott [id number] Insurance:CARESOURCEP DOBBINSDOB: [facility] Number: [id number] [place], [place] [id number] Repository [address]Gga: ([phone]) Date:2018-08-09P O [phone] () [address]ATTN: [place] [address]ZD: 08/09/2018 Secondary NOT GIVENUNK Gopal Insurance:SELF PAY [facility] Number: Effective Repository Date:2018-08-09 08/08/2018 DEVON L Primary DEVON L Lott [id number] Insurance:CARESOURCEP [facility]SDOB[facility] Number: [id number] [place], [place] [id number] Repository [address]Vcp: ([phone]) Date:2018-08-08P O [phone] () [address]ATTN: [place] [address]XI: 08/08/2018 Secondary NOT GIVENUNK Lott Insurance:SELF PAY [facility] Number: Effective Repository Date:2018-08-08 07/25/2018 DEVON L Primary DEVON L Gopal [id number] Insurance:CARESOURCEP DOBBINSDOB: [facility] Number: [id number] [place], [place] [id number] Repository [address]Emj: ([phone]) Date:2018-05-04P O [phone] () [address]ATTN: [place] [address]IU: 07/25/2018 Secondary NOT GIVENUNK Gopal Insurance:SELF PAY [facility] Number: Effective Repository Date:2018-07-13 07/14/2018 DEVON L Primary DEVON L Lott [id number] Insurance:CARESOURCEP DOBBINSDOB: [facility] Number: [id number] [place], [place] [id number] Repository [address]Oxq: ([phone]) Date:2018-07-06P O [phone] () [address]ATTN: [place] [address]NT: 07/14/2018 Secondary NOT GIVENUNK Gopal Insurance:SELF PAY [facility] Number: Effective Repository Date:2018-07-12 07/05/2018 DEVON L Primary DEVON L Gopal [id number] Insurance:CARESOURCEP [facility] mejiaruchi Number: [id number] [place], [place] [id number] Repository 66142Lxi: (330) Date:2018-07-05P O [phone] () [address]ATTN: [place] [address]JU: 07/05/2018 Secondary NOT GIVENUNK Gopal Insurance:SELF PAY [facility] Number: Effective Repository Date:2018-07-05 07/05/2018 DEVON L Primary DEVON L Gopal [id number] Insurance:CARESOURCEP [facility] Number: [id number] [place], [place] [id number] Repository 22083Jxd: (330) Date:2018-06-26P O [phone] () [address]ATTN: [place] [address]CE: 07/05/2018 Secondary NOT GIVENUNK Lott Insurance:SELF PAY [facility] Number: Effective Repository Date:2018-06-26 06/26/2018 DEVON L Primary DEVON L Lott [id number] Insurance:CARESOURCEP DOBBINSDOB: [facility] ODELL olicy Number: [id number] [place], [place] [id number] Repository 44399Wqr: (330) Date:2018-06-22P O [phone] () [address]ATTN: [place] [address]UQ: 06/26/2018 Secondary NOT GIVENUNK Lott Insurance:SELF PAY [facility] Number: Effective Repository Date:2018-06-23 06/22/2018 DEVON L Primary DEVON L Lott [id number] Insurance:CARESOURCEP [facility]BBINSDOB: [facility] olic Number: [id number] [place], [place] [id number] Repository 24819Kwu: (330) Date:2018-06-15P O [phone] () [address]ATTN: [place] [address]EU: 06/22/2018 Secondary NOT GIVENUNK Gopal Insurance:SELF PAY [facility] Number: Effective Repository Date:2018-06-21 06/15/2018 DEVON L Primary DEVON L Gopal [id number] Insurance:CARESOURCEP DOBBINSDOB: [facility] olic Number: [id number] [place], [place] [id number] Repository 227[address]Ppd: (330) Date:2018-05-04P O [phone] () [address]ATTN: [facility]S [place] [address]FJ: 06/15/2018 Secondary NOT GIVENUNK Lott Insurance:SELF PAY [facility] Number: Effective Repository Date:2018-05-04 06/01/2018 DEVON L Primary DEVON L Lott [id number] Insurance:CARESOURCEP DOBBINSDOB: [facility] white Number: [id number] [place], [place] [id number] Repository 18253Mas: (330) Date:2018-06-01P O [phone] () [address]ATTN: [place] [address]FB: 06/01/2018 Secondary NOT GIVENUNK Gopal Insurance:SELF PAY [facility] Number: Effective Repository Date:2018-06-01 05/24/2018 DEVON L Primary DEVON L Lott [id number] Insurance:CARESOURCEP [facility]SD[facility] Number: [id number] [place], [place] [id number] Repository [address]66[address]Qer: (330) Date:2018-05-04P O [phone] () [address]ATTN: [place] [address]NN: 05/24/2018 Secondary NOT GIVENUNK Gopal Insurance:SELF PAY [facility] Number: Effective Repository Date:2018-05-04 05/22/2018 DEVON L Primary DEVON L Lott [id number] Insurance:CARESOURCEP [facility] Number: [id number] [place], [place] [id number] Repository 41745Jzs: (330) Date:2018-05-02P O [phone] () [address]ATTN: [place] [address]AX: 05/22/2018 Secondary NOT GIVENUNK Gopal Insurance:SELF PAY [facility] Number: Effective Repository Date:2018-05-22 05/04/2018 DEVON L Primary DEVON L Lott [id number] Insurance:CARESOURCEP [facility] Number: [id number] [place], [place] [id number] Repository 73795Nox: (330) Date:2018-04-18P O [phone] (HP) [address]ATTN: [place] [address]ZL: 05/04/2018 Secondary NOT GIVENUNK Gopal Insurance:SELF PAY [facility] Number: Effective Repository Date:2018-05-04 05/02/2018 DEVON L Primary DEVON L Gopal [id number] Insurance:CARESOURCEP [facility]BBINSDOB[facility] Number: [id number] [place], [place] [id number] Repository 14385Pbx: (330) Date:2018-04-06 O [phone] () [address]ATTN: [place] [address]KY: 05/02/2018 Secondary NOT GIVENUNK Lott Insurance:SELF PAY [facility] Number: Effective Repository Date:2018-05-02 04/18/2018 DEVON L Primary DEVON L Lott [id number] Insurance:CARESOURCEP [facility] Number: [id number] [place], [place] [id number] Repository 74855Pzu: (330) Date:2018-04-18 O [phone] () [address]ATTN: [place] [address]GF: 04/18/2018 Secondary NOT GIVENUNK Lott Insurance:SELF PAY [facility] Number: Effective Repository Date:2018-04-18 04/18/2018 DEVON L Primary DEVON L Lott [id number] Insurance:CARESOURCEP [facility]SD[facility] Number: [id number] [place], [place] [id number] Repository 785[address]Nqv: (330) Date:2018-02-21P O [phone] (HP) [address]ATTN: [place] [address]CJ: 04/18/2018 Secondary NOT GIVENUNK Gopal Insurance:SELF PAY [facility] Number: Effective Repository Date:2018-02-21 04/18/2018 DEVON L Primary DEVON L Lott [id number] Insurance:CARESOURCEP DOBBINSDOB: [facility] O[facility]LL cindy Number: [id number] [place], [place] [id number] Repository 54406Nbl: (330) Date:2018-03-06P O [phone] () [address]ATTN: [place] [address]AL: 04/18/2018 Secondary NOT GIVENUNK Gopal Insurance:SELF PAY [facility] Number: Effective Repository Date:2018-04-18 04/06/2018 DEVON L Primary DEVON L Lott [id number] Insurance:CARESOURCEP [facility] Number: [id number] [place], [place] [id number] Repository 61165Eys: (330) Date:2018-03-06P O [phone] () [address]ATTN: [place] [address]RV: 04/06/2018 Secondary NOT GIVENUNK Gopal Insurance:SELF PAY [facility] Number: Effective Repository Date:2018-04-06 03/21/2018 DEVON L Primary DEVON L Lott [id number] Insurance:CARESOURCEP DOBBINSDOB: [facility] Number: [id number] [place], [place] [id number] Repository 90692Eng: (330) Date:2018-02-06P O [phone] () [address]ATTN: [place] [address]SZ: 03/21/2018 Secondary NOT GIVENUNK Gopal Insurance:SELF PAY [facility] Number: Effective Repository Date:2018-03-21 03/13/2018 DEVON L Primary DEVON L Gopal [id number] Insurance:CARESOURCEP DOBBINSDOB: [facility] olicy Number: [id number] [place], [place] [id number] Repository 98957Gys: (330) Date:2018-03-13P O [phone] () [address]ATTN: [place] [address]HB: 03/13/2018 Secondary NOT GIVENUNK Gopal Insurance:SELF PAY [facility] Number: Effective Repository Date:2018-03-13 03/06/2018 DEVON L Primary DEVON L Lott [id number] Insurance:CARESOURCEP DOBBINSDOB: [facility] Number: [id number] [place], [place] [id number] Repository 60[address]Azg: (330) Date:2018-02-27P O [phone] () [address]ATTN: [place] [address]EQ: 03/06/2018 Secondary NOT GIVENUNK Lott Insurance:SELF PAY [facility] Number: Effective Repository Date:2018-03-06 02/06/2018 DEVON L Primary NOT GIVENUNK Gopal [id number] Insurance:SELF [place] Number: Effective Repository [phone]: (330) Date:2018-02-06 [phone] () 01/17/2018 DEVON L Primary NOT GIVENUNK Lott [id number] Insurance[place]LF [place] Number: Effective Repository 76823Blx: (330) Date:2018-01-17 [phone] () 01/04/2018 DEVON L Primary NOT GIVENUNK Lott [id number] Insurance[place]SELF [place] Number: Effective Repository [phone]: (330) Date:2017-12-28 [phone] () 12/22/2017 DEVON L Primary NOT GIVENUNK Gopal [id number] Insurance[place]LF [place] Number: Effective Repository [phone]: (330) Date:2017-12-30 [phone] () 12/15/2017 DEVON L Primary NOT GIVENUNK Gopal [id number] Insurance:SELF [place] [facility] Number: Effective Repository 67127Wet: (330) Date:2017-12-09 [phone] () 12/08/2017 DEVON L Primary NOT GIVENUNK Lott [id number] Insurance:[place]LF [place] [facility] Number: Effective Repository [phone]: (330) Date:2017-12-08 [phone] () 11/24/2017 DEVON L Primary NOT GIVENUNK Gopal [id number] Insurance:[place]LF [place] [facility] Number: Effective Repository [id number]: (330) Date:2017-11-24 [phone] () 11/14/2017 DEVON L Primary NOT GIVENUNK Lott [id number] Insurance:[place]LF [place] [facility] Number: Effective Repository 89920Ghb: (330) Date:2017-11-14 [phone] () 11/08/2017 DEVON L Primary NOT GIVENUNK Gopal [id number] Insurance:SELF [place] [facility] Number: Effective Repository [phone]: (330) Date:2017-11-01 [phone] ()
== END 2018-07-05 11:35 | disposition home or self-care (01) ==
LOC: EN 08:43 → AC 08:47 → ACINP 13:11
PROVIDERS: Family Provider Family Medicine; PCP Family Medicine; Referring Provider Family Medicine; Visit Provider Surgery
PROC: 0DJD8ZZ Inspection of Lower Intestinal Tract, Via Natural or Artificial Opening Endoscopic (ICD-10-PCS; CPT 45378; principal; 2018-07-05 10:10)
DX: K62.5 Hemorrhage of anus and rectum (principal)
CPT/HCPCS: 88305; 88342; J7120

== ENCOUNTER 2018-07-05 12:00 | Emergency (ER) | payer MEDICAID, SELFPAY ==
[2018-07-05 09:05] VITALS: BMI 38.2
[2018-07-05 12:02] VITALS: BP 135/69; PULSE 93; RESP 16; TEMP 36.4; BMI 38.9
--- NOTE | 2018-07-05 12:37 | CT_ITS ---
STUDY: CT ABDOMEN AND PELVIS WITH CONTRAST REASON FOR EXAM: Female, 57 years old. Lower abdominal pain. RADIATION DOSAGE (If Supplied By Facility): CTDIvol = ( 16.98 ) mGy, DLP = ( 1090.02 ) mGycm TECHNIQUE: Transaxial images were obtained from the dome of the diaphragm to the symphysis pubis without oral contrast. 100 ml of Isovue 300 contrast was administered. Sagittal and coronal images were reconstructed. Individualized dose optimization techniques were used for this CT. COMPARISON: 05/25/2014 FINDINGS: The visualized lung bases are unremarkable. The visualized portions of the heart are within normal limits. In the dome of the liver, there is a hypodense nonenhancing cyst measuring 1.7 cm, stable from prior. Remainder of the liver is within normal limits. Normal gallbladder and extrahepatic biliary system. Normal spleen. Normal pancreas. Normal bilateral adrenal glands. Normal right kidney. Normal left kidney. There is a small hiatal hernia. Normal small intestine. Normal colon. The appendix is visualized and appears normal. Normal abdominal aorta. Normal inferior vena cava. Normal retroperitoneum. Normal urinary bladder. There is absence of the uterus consistent with a prior hysterectomy. Small simple appearing left ovarian cyst measuring 3.5 cm. Stable from 2013. Normal abdominal wall. Normal osseous structures. CT/Abdomen/Pelvis W IV Cont ONLY IMPRESSION: No acute findings. Stable liver cyst. Stable left ovarian cyst. Electronically Signed: Colt Mckeon DO at 14:40 EST Tel , Service support ,
--- NOTE | 2018-07-05 12:41 | ED.VISSUMM ---
- ER Visit Summary Date of Service: 07/05/18 Chief Complaint: Lower Abdominal pain after upper and lower endoscopy this morning. History of Present Illness: The patient is a 57 F history of COPD prior cancer and polyps. She bowel prep yesterday. She had upper and lower endoscopy done today by Dr. Jj Spicer. After the colonoscopy states she is having lower abdominal cramping. Dr. Spicer sent her from endoscopy to the ER to be evaluated. She denies any dysuria. Reportedly she had biopsies and polypectomies done today. Physical Examination: Well-appearing middle-age female. Vital signs are stable afebrile. She does. She is in no distress. H EENT exam unremarkable. Neck nontender. Lungs clear to auscultation bilaterally. Heart regular rhythm no murmur. Abdomen soft. Nondistended. Normal bowel sounds no peritoneal signs. She describes bilateral lower quadrant tenderness is really not reproducible. There is no signs of obstruction. Patient is moving all 4 extremities. Back nontender. Neurologically she is awake and alert. Test Results: CT shows shows no acute abnormality. There is a stable liver cyst and also a left ovarian cyst. Read by the radiologist and reviewed by me. BMP shows no acute abnormality. Gap 7. Creatinine 0.7 point CBC shows no acute abnormality. White count 8. Hemoglobin 15. UA negative other than 1+ bacteria. But no white cells. No red cells. No bacteria. Emergency Department Course and Treatment: Patient does not want anything for pain or nausea at this time. Patient has been doing well while in the emergency department. She has been eating fluids and I think she even had something to drink. Treatment Plan: I have her general surgeon on page. I will speak with him prior to discharge if possible. Disposition: Discharge Impression: Abdominal pain status post colonoscopy. This note was generated with [employer] dictation software. It may contain incorrect words, spelling, and punctuation that were not noted in review of the chart prior to signing ED Disposition - Plan for ED Patient: Chief Complaint: Abd Pain Referrals: Kolby Alaniz DO [Primary Care Provider] -
--- NOTE | 2018-07-05 12:44 | ED.DCSUM_ITS ---
- ER Visit Summary Date of Service: 07/05/18 Chief Complaint: Lower Abdominal pain after upper and lower endoscopy this morning. History of Present Illness: The patient is a 57 F history of COPD prior cancer and polyps. She bowel prep yesterday. She had upper and lower endoscopy done today by Dr. Jj Spicer. After the colonoscopy states she is having lower abdominal cramping. Dr. Spicer sent her from endoscopy to the ER to be evaluated. She denies any dysuria. Reportedly she had biopsies and alvaro ypectomies done today. Physical Examination: Well-appearing middle-age female. Vital signs are stable afebrile. She does. She is in no distress. H EENT exam unremarkable. Neck nontender. Lungs clear to auscultation bilaterally. Heart regular rhythm no murmur. Abdomen soft. Nondistended. Normal bowel sounds no peritoneal signs. She describes bilateral lower quadrant tenderness is really not reproducible. There is no signs of obstruction. Patient is moving all 4 extremities. Back nontender. Neurologically she is awake and alert. Test Results: CT shows shows no acute abnormality. There is a stable liver cyst and also a left ovarian cyst. Read by the radiologist and reviewed by me. BMP shows no acute abnormality. Gap 7. Creatinine 0.7 point CBC shows no acute abnormality. White count 8. Hemoglobin 15. UA negative other than 1+ bacteria. But no white cells. No red cells. No bacteria. Emergency Department Course and Treatment: Patient does not want anything for pain or nausea at this time. Patient has been doing well while in the emergency department. She has been eating fluids and I think she even had something to drink. Treatment Plan: I have her general surgeon on page. I will speak with him prior to discharge if possible. Disposition: Discharge Impression: Abdominal pain status post colonoscopy. This note was generated with [employer] dictation software. It may contain incorrect words, spelling, and punctuation that were not noted in review of the chart prior to signing ED Disposition - Plan for ED Patient: Chief Complaint: Abd Pain Referrals: Kolby Alaniz DO [Primary Care Provider] -
[2018-07-05 13:41] LABS: Absolute Lymphocyte Count 1.85 X10^3/ul (0.83-4.51); Absolute Neutrophil Count 5.9 X10^3/uL (2.0-7.7); Basophil# 0.03 X10^3/uL; Basophil% 0.4 % (0-1); Eosinophil# 0.09 X10^3/uL; Eosinophils% 1.1 % (0-5); Hematocrit 42.7 % (37-47); Hemoglobin 14.6 g/dl (12.0-15.0); Lymphocyte # 1.85 X10^3/ul (4.0); Lymphocyte % 21.9 % (19-41); Mean Corp Hgb Conc 34.2 g/gl (32-36); Mean Corpuscular Hgb 31.3 pg (27.0-32.0); Mean Corpuscular Volume 91.4 fL (81-99); Mean Platelet Vol. 8.8 fl (6.2-12.0); Monocyte% 7.1 % (0-10); Neutrophil # 5.85 X10^3/uL (2.7-7.7); Neutrophil % 69.1 % (47-70); Platelet Count 275 K/mm3 (150-450); RBC Distribution Width SD 43.2 fl (35.1-43.9); Red Blood Count 4.67 M/mm3 (4.2-5.4); White Blood Count 8.5 K/mm3 (4.4-11.0)
[2018-07-05 13:46] LABS: POSITIVE COUNT NO; POSITIVE DIFFERENTIAL NO; POSITIVE MORPHOLOGY NO
[2018-07-05 13:55] LABS: Anion Gap 7 (5-15); BUN 7 mg/dL (7-18); BUN/Creat Ratio 10.1 RATIO (10-20); Calcium,Total 8.6 mg/dL (8.5-10.1); Chloride 109 mmol/L (98-107); EST Glomerular Filtration Rate 92 mL/min (>60); Est Glom Filt Rate - Afr Amer 111 mL/min (>60); Estimated Creatinine Clearance 72.47 ml/min; Glucose 120 mg/dL (74-106); Potassium 3.7 mmol/L (3.5-5.1); Sodium Level 142 mmol/L (136-145)
[2018-07-05 14:17] VITALS: BP 129/80; PULSE 79; RESP 16; O2SAT 92
[2018-07-05 14:29] LABS: Mucous, Urine 0 SEEN /hpf (<or=2+)
[2018-07-05 14:31] LABS: Color, Urine Straw (Yellow); Glucose, Dipstick Normal (Normal); Ketone-Dipstick Negative (Negative); Leukocyte Esterase-Dipstick Negative /ul (Negative); Nitrite-Dipstick Negative (Negative); Occult Blood-Urine Negative /ul (Negative); Protein-Dipstick Negative (Negative); Urine Bilirubin Dipstick Negative (Negative); Urine Clarity Clear (Clear); Urine Urobilinogen Normal (Normal)
[2018-07-05 14:38] LABS: Bacteria 1+ /hpf (None Seen); Red Blood Cells-Urine 0-5 SEEN /hpf (0-5); Squamous Epithelial Cells - UA 0-5 SEEN /hpf (5-10); White Blood Cells 0-5 SEEN /hpf (0-5)
--- NOTE | 2018-07-05 14:58 | ED.DEP ---
ED Disposition - Plan for ED Patient: Disposition: Home or Assisted Living Chief Complaint: Abd Pain Instructions: ED Abdominal Pain Unkn Cause Referrals: Jaun Spicer MD [STAFF PHYSICIAN] - As Needed Additional Instructions: Follow-up with Dr. Spicer as needed. Fluids and advance diet slowly.
[2018-07-05 15:16] VITALS: BP 128/75; PULSE 84; RESP 16; O2SAT 92
--- OUTSIDE RECORDS SUMMARY | 2018-10-06 18:48 | XMS RPT_ITS ---
:1960 Author Organization OHIP Support Name Relationship Address Phone DALI HUYNH Unavailable [address] + [place] [address] JOEL BARAHONA Unavailable [address] + [place] [address] UE Unavailable Unavailable Unavailable DALI HUYNH Unavailable [address] + [facility] [place] [address] JOEL BARAHONA Unavailable [address] + [place] [address] UE Unavailable Unavailable Unavailable DALI HUYNH Unavailable [address] + [facility] [place] [address] DOJOEL VALDEZ Unavailable [address] + [place] [address] UE Unavailable Unavailable Unavailable DALI HUYNH Unavailable [address] + [facility] [place] [address] JOEL BARAHONA Unavailable [address] + [place] [address] UE Unavailable Unavailable Unavailable DALI HUYNH Unavailable [address] + [place] [address] JOEL BARAHONA Unavailable [address] + [place] [address] UE Unavailable Unavailable Unavailable DALI HUYNH Unavailable [address] + [place] [address] JOEL BARAHONA Unavailable [address] + [place] [address] UE Unavailable Unavailable Unavailable DALI HUYNH Unavailable [address] + [place] [address] JOEL BARAHONA Unavailable [address] + [place] [address] UE Unavailable Unavailable Unavailable DALI HUYNH Unavailable [address] + [place] [address] DOBBINS, JOEL Unavailable [address] + [place] [address] UE Unavailable Unavailable Unavailable DALI HUYNH Unavailable [address] + [place] [address] DOBBINS, JOEL Unavailable [address] + [place] [address] UE Unavailable Unavailable Unavailable DALI HUYNH Unavailable [address] + [place] [address] DOBBINS, JOEL Unavailable [address] + [place] [address] UE Unavailable Unavailable Unavailable DOBBINS, JOEL Unavailable [address] + [place] [address] UE Unavailable Unavailable Unavailable DOBBINS, JOEL Unavailable [address] + [place] [address] UE Unavailable Unavailable Unavailable DOBBINS, JOEL Unavailable [address] + [place] [address] UE Unavailable Unavailable Unavailable DOBBINS, JOEL Unavailable [address] + [place] [address] UE Unavailable Unavailable Unavailable DOBBINS, JOEL Unavailable [address] + [place] [address] UE Unavailable Unavailable Unavailable DOBBINS, JOEL Unavailable [address] + [place] [address] UE Unavailable Unavailable Unavailable DOBBINS, JOEL Unavailable [address] + [place] [address] UE Unavailable Unavailable Unavailable DOBBINS, JOEL Unavailable [address] + [place] [address] UE Unavailable Unavailable Unavailable DOBBINS, JOEL Unavailable [address] + [place] [address] UE Unavailable Unavailable Unavailable DOBBINS, JOEL Unavailable [address] + [place] [address] UE Unavailable Unavailable Unavailable DOBBINS JOEL Unavailable [address] + [place] [address] UE Unavailable Unavailable Unavailable DOBBINS, JOEL Unavailable [address] + [place] [address] UE Unavailable Unavailable Unavailable DOBBINS, JOEL Unavailable [address] + [place] [address] UE Unavailable Unavailable Unavailable DOBBINS, JOEL Unavailable [address] + [place] [address] UE Unavailable Unavailable Unavailable DOBBINS, JOEL Unavailable [address] + [place] [address] UE Unavailable Unavailable Unavailable DOBBINS, JOEL Unavailable [address] + [place] [address] UE Unavailable Unavailable Unavailable DOBBINS JOEL Unavailable [address] + [place] [address] UE Unavailable Unavailable Unavailable DOBBINS JOEL Unavailable [address] + [place] [address] UE Unavailable Unavailable Unavailable DOBBINS JOEL Unavailable [address] + [place] [address] UE Unavailable Unavailable Unavailable DOBBINS JOEL Unavailable [address] + [place] [address] UE Unavailable Unavailable Unavailable DOBBINS JOEL Unavailable [address] + [place] [address] UE Unavailable Unavailable Unavailable Care Team Providers Name Role Phone Jaun Spicer Attending Unavailable Brown, Kolby Primary Care Unavailable Brown, Kolby Referring Unavailable Brown, Kolby Primary Care Unavailable Osmin Moore Attending Unavailable Jaun Spicer Attending Unavailable Brown, Kolby Referring Unavailable Brown Kolby Attending Unavailable Nicole Vera Referring Unavailable Josafat Roldan Attending Unavailable Josafat Roldan Referring Unavailable Brown, Kolby Primary Care Unavailable Radha Wilson Attending Unavailable Brown Kolby Attending Unavailable Brown, Kolby Referring Unavailable Brown, Kolby Primary Care Unavailable Sultana Shelley D.C. Attending Unavailable Elderbrock, Dayami Referring Unavailable Elderbrock, [...] Sanchez Attending Unavailable Brown, Kolby Attending Unavailable Nicole Vera Referring Unavailable Brown, Kolby Attending Unavailable Brown, Kolby Referring Unavailable Brown, Kolby Primary Care Unavailable Dossie, Sultana Sanchez Attending Unavailable Coco Foy Attending Unavailable Brown, Kolby Attending Unavailable Brown, Kolby Referring Unavailable Brown, Kolby Primary Care Unavailable Dossie, Sultana Sanchez Attending Unavailable Brown, Kolby Referring Unavailable Jaun Spicer Attending Unavailable Brown, Kolby Referring Unavailable SCARCELLBERNARD Valencia Referring Unavailable AMALFITANO, CHRISTINA Burns Referring Unavailable AMALFITANO, CHRISTINA L Referring Unavailable AMALFITANO, CHRISTINA L Referring Unavailable RACIEL GAMEZ Attending Unavailable JENNY PATTON Attending Unavailable CONKLESHELLI Attending Unavailable ELDERBROCK, DAYAMI D Attending Unavailable DAYAMI DUGGAN Referring Unavailable DAYAMI DUGGAN Referring Unavailable BERNARD GUTHRIE Attending Unavailable DAYAMI DUGGAN Referring Unavailable DAYAMI DUGGAN Attending Unavailable DAYAMI DUGGAN Referring Unavailable LOU MENDOZA Attending Unavailable LOU MENDOZA Referring Unavailable LOU MENDOZA Referring Unavailable ROBIMALVINCHRISTINA VICTOR Attending Unavailable DAYAMI DUGGAN Referring Unavailable DAYAMI DUGGAN Attending Unavailable DAYAMI DUGGAN Referring Unavailable IVET MEDELLIN (PA) Referring Unavailable LOU MENDOZA Attending Unavailable IVET MEDELLIN (PA) Referring Unavailable PROBLEMS PROBLEMS DATE TYPE CONDITION / CODE ATTENDING STATUS SOURCE 07/25/2018 Unknown M54.10 - Kolby Alaniz Active [facility] Radiculopathy, site Community unspecified / Hospital M54.10(ICD-10) Repository 07/24/2018 Active Contusion of right CONKLE, SHELLI Active [facility] knee, initial [facility] Other encounter / [place] S80.01XA(ICD-10) Repository 07/24/2018 Active Abrasion, right CONKLE, SHELLI Active [facility] knee, initial [facility] Other encounter / [place] S80.211A(ICD-10) Repository 07/19/2018 Active Headache / MCQUOWN, JENNY Active [facility] R51(ICD-10) [facility] Other [place] Repository 07/17/2018 Active Unspecified injury BUDZIAK, Active [facility] of head, initial [facility] Other encounter / [facility] S09.90XA(ICD-10) Repository 07/17/2018 Active Acute frontal BUDZIAK, Active [facility] sinusitis, [facility] Other unspecified / [facility] J01.10(ICD-10) Repository 06/26/2018 Unknown K62.5 - Hemorrhage DannielleJaun Active [facility] of anus and rectum / Community K62.5(ICD-10) Hospital Repository 06/26/2018 Unknown R10.13 - Epigastric Earl ParkJaun Active [facility] pain / Community R10.13(ICD-10) Hospital Repository 06/26/2018 Unknown R13.10 - Dysphagia, Earl ParkJaun Active [facility] unspecified / Community R13.10(ICD-10) Hospital Repository 06/23/2018 Unknown M99.03 - Segmental Dossie, Sultana Active [facility] and somatic [facility] Community dysfunction of Hospital lumbar region / Repository M99.03(ICD-10) 06/23/2018 Unknown M99.05 - Segmental Dossie, Sultana Active [facility] and somatic [facility] Community dysfunction of Hospital pelvic region / Repository M99.05(ICD-10) 06/23/2018 Unknown M99.02 - Segmental Dossie, Sultana Active [facility] and somatic [facility] Community dysfunction of Hospital thoracic region / Repository M99.02(ICD-10) 06/23/2018 Unknown M99.01 - Segmental Dossie, Sultana Active [facility] and somatic [facility] 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 / Community M31.6(ICD-10) Hospital Repository 04/18/2018 Unknown I10 - Essential Brown, Kolby Active [facility] (primary) Community hypertension / Hospital I10(ICD-10) Repository 04/18/2018 Unknown E78.5 - Brown, Kolby Active [facility] Hyperlipidemia, Community unspecified / Hospital E78.5(ICD-10) Repository 04/18/2018 Unknown L68.0 - Hirsutism / Brown, Kolby Active [facility] L68.0(ICD-10) [facility] Repository 04/18/2018 Unknown E66.9 - Obesity, Brown, Kolby Active [facility] unspecified / Community E66.9(ICD-10) Hospital Repository 04/19/2018 Unknown M54.5 - Low back Dossie, Sultana Active [facility] pain / M54.5(ICD-10) [facility] Repository 03/07/2018 Unknown M54.9 - Dorsalgia, Dossie, Sultana Active [facility] unspecified / [facility].C. Community M54.9(ICD-10) Hospital Repository 04/28/2015 Active Obstructive sleep NA Active [facility] apnea (adult) Clinic Other (pediatric) / [place] G47.33(ICD-10) Repository 02/08/2018 Active Chest pain, NA Active [facility] unspecified / Clinic Other R07.9(ICD-10) [place] Repository 02/08/2018 Active Shortness of breath NA Active [facility] / R06.02(ICD-10) Clinic Other [place] Repository 02/08/2018 Active Panlobular emphysema NA Active [facility] / J43.1(ICD-10) Clinic Other [place] Repository 11/21/2017 Active Chronic obstructive NA Active [facility] pulmonary disease, Clinic Main unspecified / [place] J44.9(ICD-10) Repository 10/19/2011 Active 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, Clinic Main lumbar region / [place] M51.36(ICD-10) Repository 10/31/2017 Active Dorsalgia, NA Active [facility] unspecified / Clinic Main M54.9(ICD-10) [place] Repository 10/31/2017 Active Other chronic pain / NA Active [facility] G89.29(ICD-10) Clinic Main [place] Repository 10/26/2017 Active Paresthesia of skin NA Active [facility] / R20.2(ICD-10) Clinic Other [place] Repository 09/12/2017 Active Pain in left hip / NA Active [facility] M25.552(ICD-10) Clinic Other [place] Repository 09/15/2011 Active Hyperlipidemia, NA Active [facility] unspecified / Clinic Main E78.5(ICD-10) [place] Repository PROCEDURES PROCEDURES No Procedure Records FoundRESULTS RESULTS LIPID PROFILE Collected: 08/09/2018 Status: F Source: [place] 12:29 PM [facility] REPOSITORY TYPE CODE TESTS RESULT OUT [...] VLDL 21 Performed By: #### L500.4100 #### [facility] [address] [place], [address] INTERNAL MEDICINE Observed: 07/25/2018 Status: F Source: [place] OFFICE VISIT 5:16 PM [facility] [place] [facility] [address] [place] [address] OFFICE VISIT Date of Service: 07/25/18 MR#: [id number] Acct: [id number] Name: DEVON BARAHONA Rep #: [id number] : 1960 Provider: Kolby Alaniz DO Age/Sex: 57/F Location: [facility] Status: Signed Intake Vital Signs07/25/18 Body Mass [...] BID #180 cap 04/27/18 [Rx Confirmed 07/25/18] lxfvoy-mjexfhrk-uopedhz 3,000-9,500-15,000 unit capsule,delayed releas 12.07458 cap PO TID #90 cap 05/04/18 [Rx Confirmed 07/25/18] cetirizine 10 mg capsule 10 mg PO DAILY #90 cap 06/01/18 [Rx Confirmed 07/25/18] glucosamine HCl 1,500 mg tablet 1,500 mg PO BID #180 tab 06/01/18 [Rx Confirmed 07/25/18] Co Q10 200 [Co Q-10] 200 mg PO DAILY 07/04/18 [History Confirmed 07/25/18] Salmeterol [Serevent Diskus] 1 puff INHALATION Q12 07/04/18 [History Confirmed 07/25/18] Tiotropium Ferris [Spiriva Respimat] 1 puff IH BID 07/04/18 [...] but I told her she is only penitentiary through her medication so we will give [...] esophagitis Contusion of right knee S80.01XA 07/25/18 6316 <Electronically signed by Kolby Alaniz DO> Date Kolby Alaniz DO Cosigner Signature: Date (if applicable) CC: ED PROV NOTE Observed: 07/24/2018 Status: COMPLETED Source: [place] 6:29 PM [facility] [place] REPOSITORY O ID: [id number] Author: Shelli Ace DO Service: Emergency Medicine Author Type: Physician Type: ED Provider Notes Filed: 07/24/2018 10:40 PM Note Text: ED Provider Note Patient Name: Devon Barahona SERVICE DATE: 07/24/18 History Patient presents with: Leg Injury Deovn Barahona is a 57 year old female [...] Capsulotomy - EGD 05/24/14 - EGD W/O [facility] SPECIMEN W/BX 04/17/10 - EXCISION MALIGNANT LESIONS,VUL 1996 Dr. Rehman. No recent F/U. in vulvar region - HEART CATHETERIZATION 04/2011 normal no CAD - MAMMO MAMMOGRAM 2009 [facility] - PAST SURGICAL HISTORY OF age [...] - SLING OPER STRES INCONTINENCE 11/26/10, 04/2011 [facility] main campus surgery FAMILY HISTORY Problem Relation [...] ED NOTE Observed: 07/24/2018 Status: COMPLETED Source: [place] 6:25 PM [facility] [place] REPOSITORY [facility] ID: [id number] Author: Florencia ShepardRn) CÉSAR Allen Service: Emergency [...] ED NOTE Observed: 07/24/2018 Status: COMPLETED Source: [place] 5:58 PM [facility] MA[facility] REPOSITORY [facility] ID: [id number] Author: Florencia ShepardRn) CÉSAR Allen Service: Emergency Medicine Author Type: Registered Nurse Type: ED Notes Filed: 07/24/2018 5:58 PM Note Text: Patient informed: the name of medication, why we are giving it, possible side effects, what they may expect to feel, and was offered a chance to ask questions, prior to the administration of Bacitracin. KNEE INJURY 4V Observed: 07/24/2018 Status: F Source: [facility] AP/LAT/OBLS RIGHT 5:20 PM HEALTH SYSTEM REPOSITORY Performed at [facility] APPROVED BY: Kolyb Dixon MD EXAM TITLE: KNEE INJURY 4V AP/LAT/OBLS RIGHT DATE: 07/24/2018 16:57 COMPARISON: None. CLINICAL INDICATION/HISTORY: Status post fall, right knee pain TECHNIQUE: AP, lateral and internal and external rotation views FINDINGS: No acute bony abnormality. No fracture or dislocation. No significant arthritic change. No joint effusion. IMPRESSION: Normal knee. ED NOTE Observed: 07/24/2018 Status: COMPLETED Source: [place] 5:17 PM [facility] MA[facility] CAMP[facility] REPOSITORY [facility] ID: [id number] Author: Nirmala ShepardRn) CÉSAR Patel Service: Emergency Medicine Author Type: Registered Nurse Type: ED Notes Filed: 07/24/2018 5:17 PM Note Text: Pt to room from radiology via cart ED NOTE Observed: 07/24/2018 Status: COMPLETED Source: [place] 4:44 PM [facility] REPOSITORY [facility] ID: [id number] Author: Nirmala ShepardRn) CÉSAR Patel Service: Emergency Medicine Author Type: Registered Nurse Type: ED Notes Filed: 07/24/2018 5:18 PM Note Text: Pt fell on deck steps, reports right knee pain. Reports left knee gave out and I went down onto my right knee. ED NOTE Observed: 07/19/2018 Status: COMPLETED Source: [place] 2:58 PM [facility] REPOSITORY [facility] ID: [id number] Author: Azeb ShepardRn) CÉSAR Hargrove Service: Emergency Medicine Author Type: Registered Nurse Type: ED Notes Filed: 07/19/2018 2:58 PM Note Text: Pt given discharge instructions, pt questions answered and pt denies any further questions at time of discharge. Pt ambulates out of dept with a steady gait. Spouse to drive pt home ED NOTE Observed: 07/19/2018 Status: COMPLETED Source: [place] 2:41 PM [facility] REPOSITORY [facility] ID: [id number] Author: Azeb ShepardRn) CÉSAR Hargrove Service: Emergency Medicine Author Type: Registered Nurse Type: ED Notes Filed: 07/19/2018 2:41 PM Note Text: Pt pain and nausea improved after medications ED NOTE Observed: 07/19/2018 Status: COMPLETED Source: [place] 2:39 PM [facility] REPOSITORY [facility] ID: [id number] Author: Azeb ShepardRn) CÉSAR Hargrove Service: Emergency Medicine Author Type: Registered Nurse Type: ED Notes Filed: 07/19/2018 2:39 PM Note Text: Pt ambulates to bathroom ED PROV NOTE Observed: 07/19/2018 Status: COMPLETED Source: [place] 2:36 PM [facility] REPOSITORY [facility] ID: [id number] Author: Jenny Patton MD Service: Emergency Medicine [...] normal no CAD - MAMMO MAMMOGRAM 2009 [facility] - PAST SURGICAL HISTORY OF age [...] - SLING OPER STRES INCONTINENCE 11/26/10, 04/2011 [facility] main campus surgery FAMILY HISTORY Problem Relation [...] ED NOTE Observed: 07/19/2018 Status: COMPLETED Source: [place] 2:10 PM [facility] REPOSITORY [facility] ID: [id number] Author: Azeb (Rn) CSÉAR Hargrove Service: Emergency Medicine Author Type: Registered Nurse Type: ED Notes Filed: 07/19/2018 2:10 PM Note Text: Patient informed: the name of medication, why we are giving it, possible side effects, what they may expect to feel, and was offered a chance to ask questions, prior to the administration of toradol, reglan ED NOTE Observed: 07/19/2018 Status: COMPLETED Source: [place] 1:26 PM [facility] REPOSITORY [facility]NO ID: [id number] Author: Otilia Valencia (Rn) CÉSAR Pereira Service: (none) Author Type: Registered Nurse Type: ED Notes Filed: 07/19/2018 1:28 PM Note Text: Steady gait to ED bed 10 C/O diarrhea, headache and SOB since Tuesday States was seen for sinus infection on Tuesday and started having bad side effects from levaquin 30 minutes after first dose ED PROV NOTE Observed: 07/17/2018 Status: COMPLETED Source: [place] 4:53 PM [facility] REPOSITORY [facility] ID: [id number] Author: Raciel Gamez MD Service: Emergency Medicine [...] normal no CAD - MAMMO MAMMOGRAM 2009 [facility] - PAST SURGICAL HISTORY OF age [...] - SLING OPER STRES INCONTINENCE 11/26/10, 04/2011 [facility] surgery FAMILY HISTORY Problem Relation Age of [...] W/O CONTRAST Observed: 07/17/2018 Status: F Source: [facility] 3:56 PM HEALTH SYSTEM REPOSITORY Performed at [facility] APPROVED BY: Lou Umaña MD EXAMINATION: CT [...] ED NOTE Observed: 07/17/2018 Status: COMPLETED Source: [place] 3:54 PM [facility] REPOSITORY [facility]NO ID: [id number] Author: Evens Higuera RN Service: Emergency Medicine Author Type: Registered Nurse Type: ED Notes Filed: 07/17/2018 3:54 PM Note Text: Patient returned to the Emergency Department. ED NOTE Observed: 07/17/2018 Status: COMPLETED Source: [place] 3:47 PM [facility] REPOSITORY [facility]NO ID: [id number] Author: Evens Higuera RN Service: Emergency Medicine Author Type: Registered Nurse Type: ED Notes Filed: 07/17/2018 3:47 PM Note Text: Patient transported to [place] with Tech. ED NOTE Observed: 07/17/2018 Status: COMPLETED Source: [place] 3:31 PM [facility] REPOSITORY [facility]NO ID: [id number] Author: Evens Higuera RN Service: Emergency Medicine Author Type: Registered Nurse Type: ED Notes Filed: 07/17/2018 3:32 PM Note Text: .Pt advised on name of medication, why the medication was being administered, possible side effects, and how medication might make them feel once administered. Name of medication tylenol, benadryl, and zofran at 1530 hrs. ED NOTE Observed: 07/17/2018 Status: COMPLETED Source: [place] 2:46 PM [facility] REPOSITORY [facility] ID: [id number] Author: Eliseo Palomares RN Service: Emergency Medicine Author Type: Registered Nurse Type: ED Notes Filed: 07/17/2018 2:47 PM Note Text: Headache that got worse after hitting head getting into car SURGERY VISIT REPORT Observed: 07/17/2018 Status: F Source: [place] 1:11 PM [facility] [place] [facility] [address] [place] [address] OFFICE VISIT Date of Service: 07/14/18 MR#: [id number] Acct: [id number] Name: DEVON BARAHONA Rep #: [id number] : 1960 Provider: Jaun Spicer MD Age/Sex: 57/F Location: [facility] Status: Signed Intake Intake Visit Reasons: 1 WK F/U UPPER LOWER SCOPE 07/05 Chief Complaint: blood in stool, hx colon cancer [employer] Supervisor Required: No Is patient in pain?: No [...] BID #180 cap 04/27/18 [Rx Confirmed 07/14/18] domjhx-ryaxncmx-ojskgoo 3,000-9,500-15,000 unit capsule,delayed releas 12.24658 cap PO TID #90 cap 05/04/18 [Rx Confirmed 07/14/18] cetirizine 10 mg capsule 10 mg PO DAILY #90 cap 06/01/18 [Rx Confirmed 07/14/18] glucosamine HCl 1,500 mg tablet 1,500 mg PO BID #180 tab 06/01/18 [Rx Confirmed 07/14/18] Co Q10 200 [Co Q-10] 200 mg PO DAILY 07/04/18 [History Confirmed 07/14/18] Salmeterol [Serevent Diskus] 1 puff INHALATION Q12 07/04/18 [History Confirmed 07/14/18] Tiotropium Ferris [Spiriva Respimat] 1 puff IH BID 07/04/18 [History Confirmed 07/14/18] lorazepam 1 mg tablet 1 mg PO BID #60 tab 07/05/18 [Rx Confirmed 07/14/18] Subjective Details: Patient is status post an upper and lower endoscopy completed [facility] on 07/05/2018. Biopsies of the stomach [...] 07/05/2018 Status: F Source: [place] 4:47 PM [facility] REPOSITORY [facility] Medical Records Department [address] [place] [address] Discharge Instruction 07/05/18 1458 MR#: [id number] Acct: [id number] Name: DEVON BARAHONA Rep #: [id number] : 1960 57 From: Osmin Moore MD PCP: Kolby Alaniz DO Status: DEP ER ED Disposition - Plan for ED Patient: Disposition: Home or Assisted Living Chief Complaint: Abd Pain Instructions: ED Abdominal Pain Unkn Cause Referrals: aJun Spicer MD [STAFF PHYSICIAN] - As Needed Additional Instructions: Follow-up with Dr. Spicer as needed. Fluids and advance diet slowly. What to do if you have Problems For any increased pain, shortness of breath, bleeding, nausea or vomiting, chest pain, or any unexpected problems, contact your Primary Care Provider. Call [facility] ([phone]) or report to the closest Emergency Room. Call 911 if necessary. 07/05/18 1647 <Electronically signed by Osmin Moore MD> Date Osmin Moore MD Cosigner Signature (If Indicated): Date CC: Kolby Alaniz DO EMERGENCY DEPARTMENT Observed: 07/05/2018 Status: F Source: [place] SUMMARY 4:47 PM [facility] REPOSITORY [facility] Medical Records Department [address] [place] [address] Emergency Department Summary 07/05/18 1241 MR#: [id number] Acct: [id number] Name: DEVON BARAHONA Rep #: [id number] : 1960 57 From: Osmin Moore MD [...] post colonoscopy. This note was generated with [employer] dictation software. It may contain incorrect words, [...] problems, contact your Primary Care Provider. Call [employer] [facility] ([phone]) or report to the closest Emergency Room. Call 911 if necessary. 07/05/18 6217 <Electronically signed by Osmin Moore MD> Date Osmin Magana Signature (If Indicated): Date CC: Kolby Alaniz, URINALYSIS, COMPLETE Collected: 07/05/2018 Status: F Source: [place] 2:20 PM [facility] [place] Order Comment: Order Date: 07/05/18 Has [...] URINE SEEN Performed By: #### L400.0001 #### [facility] [address] [place], [address] CBC W/DIFF, AUTOMATED Collected: 07/05/2018 Status: F [...] Lymph 1.85 Performed By: #### L100.0100 #### [facility] [address] [place], [place], [id number] BASIC METABOLIC Collected: 07/05/2018 Status: F Source: [place] PROFILE (BMP) 1:24 PM [facility] TYPE CODE TESTS RESULT OUT OF [...] GAP 7 Performed By: #### L500.2500 #### [facility] [address] [facility] [place], [address] ABDOMEN/PELVIS W IV CONT Observed: 07/05/2018 Status: F Source: [facility] 12:38 PM [facility] [place] [facility] Imaging Services [address] [place], [place] [address] [address] Abdomen/Pelvis W IV Cont ONLY MR#: [id number] Acct: [id number] Name: DEVON BARAHONA Rep #: [id number] : 1960 F 57 From: Colt Mckeon DO PCP: Kolby Alaniz DO Status: REG ER Study: Abdomen/Pelvis W IV Cont ONLY Date of Exam: 07/05/18 Exam# [id number] Ordering Dr: Osmin Moore MD STUDY: CT [...] CC: Kolby Alaniz DO; Osmin Moore MD Dice Person: Signed OPERATIVE REPORT - Observed: 07/05/2018 Status: F Source: [place] [facility] 10:41 AM [facility] Medical Records Department [address] [place] [address] Operative Report - Endoscopy MR#: [id number] Acct: [id number] Name: DEVON BARAHONA Rep #: [id number] : 1960 57 From: Jaun Spicer MD PCP: Kolby Alaniz, DO Status: REG [...] 1 week. Procedure Code(s): --- Professional --- 47994, Colonoscopy, flexible; with removal of tumor(s), polyp(s), or other lesion(s) by snare technique 22547, 58, Colonoscopy, flexible; with biopsy, single or multiple Diagnosis Code(s): --- Professional --- D12.4, Benign neoplasm of descending colon D12.3, Benign neoplasm of transverse colon (hepatic flexure or splenic flexure) K62.5, Hemorrhage of anus and rectum K57.30, Diverticulosis of large intestine without perforation or abscess without bleeding CPT copyright 2017 [employer]. All rights reserved. The codes documented in this report are preliminary and upon label coder review may be revised to meet current compliance requirements. MD Jaun Alvarez MD 07/05/2018 10:40:54 AM This report has been signed electronically. Number of Addenda: 0 Note Initiated On: 07/05/2018 10:16 AM 07/05/18 1041 Date Jaun Spicer MD Cosigner Signature: Date (if indicated) CC: Jaun Spicer MD; Kolby Alaniz DO Date Dictated: 07/05/18 1016 Date Transcribed: Dice Person: ERIN Signed OPERATIVE REPORT - Observed: 07/05/2018 Status: F Source: [place] [facility] 10:36 AM [facility] Medical Records Department [address] [place] [address] Operative Report - Endoscopy MR#: [id number] Acct: [id number] Name: DEVON BARAHONA Rep #: [id number] : 1960 57 From: Jaun Spicer MD PCP: Kolby Alaniz DO Status: REG [facility] Patient Name: Devon Barahona Procedure Date: 07/05/2018 10:02 AM Date of : 1960 Age: 57 Procedure: Upper GI endoscopy Indications: Epigastric abdominal pain, Dysphagia, Abdominal bloating Providers: Jaun Spicer MD Referring MD: Kolby [...] present medications. Procedure Code(s): --- Professional --- 63544, Esophagogastroduodenoscopy, flexible, transoral; with biopsy, single or multiple Diagnosis Code(s): --- Professional --- K22.8, Other specified diseases of esophagus R13.10, Dysphagia, unspecified R10.13, Epigastric pain R14.0, Abdominal distension (gaseous) CPT copyright 2017 [employer]. All rights reserved. The codes documented in this report are preliminary and upon label coder review may be revised to meet current compliance requirements. MD Jaun Alvarez MD 07/05/2018 10:36:15 AM This report has been signed electronically. Number of Addenda: 0 Note Initiated On: 07/05/2018 10:02 AM 07/05/18 1036 Date Jaun Spicer MD Cosigner Signature: Date (if indicated) CC: Jaun Spicer MD; Kolby Alaniz DO Date Dictated: 07/05/18 1002 Date Transcribed: Dice Person: DP Signed EGD ([facility] SITE) Observed: 07/05/2018 Status: F Source: [place] 10:15 AM [facility] [place] Patient: DEVON BARAHONA : 1960 (57/F) Acct Num: [id number] Phys: Dannielle GARVEY,Jaun Unit Num: [id number] Loc: EN Specimen: [id number] Received: 07/05/18 - 4 Spec Type: EGD BIOPSY TISSUES 1 TISSUES: A. Gastric mucous membrane B. Duodenum, NOS C. COLON BIOPSY D. Descending colon E. Sigmoid colon biopsy COMMENT A. The results of immunohistochemistry for Helicobacter pylori will be reported separately ([id number]). GROSS DESCRIPTION A - Received in fixative [...] one cassette. / MAXIMO:juju 07/05/18 TC:1 CPT: 02473 x5 HEADER OPERATION: Colonoscopy, EGD ([facility]) PRE-OP DIAGNOSIS: Rectal bleeding, epigastric pain, esophageal [...] on file> Performed By: #### JEFF #### [facility] [address] [place] [address]. [place], [place], [id number] IMMUNOHISTOCHEMISTRY Observed: 07/05/2018 Status: F Source: [place] 10:15 AM [facility] Patient: DEVON BARAHONA : 1960 (57/F) Acct Num: [id number] Phys: Dannielle GARVEY,Jaun Unit Num: [id number] Loc: EN Specimen: [id number] Received: 07/05/181336 Spec Type: IMMUNO TISSUES 1 TISSUES: A. Stomach, NOS SPECIMEN INFORMATION: Tissue Source: A - Antrum biopsy Clinical Info: Rectal bleeding, epigastric pain, esophageal dysphagia Specimen Number: [id number] CPT code: 43786 METHODOLOGY: Deparaffinized sections of prefer/formalin-fixed tissue or [...] developed and their performance characteristics determined by [facility]. They may not have been cleared or approved by the U.S. Food and Drug Administration. The FDA has determined that such clearance or approval is not necessary. INTERPRETATION: A. Antrum, biopsy: Negative for Helicobacter pylori organisms. SJ:juju 07/06/18 PHYSICIAN AND INSTITUTION [address] [address] Signed Mario Sen MD 07/06/18 <signature on file> Performed By: #### PIMM #### [facility] [address] [place] [address]. [place], [place], [id number] SURGERY VISIT REPORT Observed: 06/27/2018 Status: F Source: [place] 7:31 AM [facility] [address] [place] [address] OFFICE VISIT Date of Service: 06/26/18 MR#: [id number] Acct: [id number] Name: DEVON BARAHONA Rep #: [id number] : 1960 Provider: Jaun Spicer MD Age/Sex: 57/F Location: [facility] Status: Signed Intake Vital Signs06/26/18 Body Mass Index (BMI) 37.6 06/26/18 Height 5 ft 3 in 06/26/18 Weight: 217 lb 3 oz 06/26/18 Body Mass Index (BMI) 38.5 06/26/18 Blood Pressure 145/84 H Intake Visit Reasons: Bloody Stool - Self Ref Prev Colon Cx Chief Complaint: blood in stool, hx colon cancer [employer] Operations Supervisor Required: No Is patient in pain?: No [...] BID #180 cap 04/27/18 [Rx Confirmed 06/26/18] nbuixm-yjgxozcx-kvdddlv 3,000-9,500-15,000 unit capsule,delayed releas 12.49167 cap PO TID #90 cap 05/04/18 [Rx [...] person, oriented to place, oriented to time [facility] Head: normocephalic, atraumatic Ears: external ears [...] CHIROPRACTIC REPORT Observed: 06/22/2018 Status: F Source: [place] 4:36 PM [facility] [address] [place] [address] OFFICE VISIT Date of Service: 06/22/18 MR#: [id number] Acct: [id number] Name: DEVON BARAHONA Rep #: [id number] : 1960 Provider: [facility] Age/Sex: 57/F Location: [facility] Status: Signed Intake Vital Signs06/22/18 Height 5 [...] BID #180 cap 04/27/18 [Rx Confirmed 05/04/18] bojfcj-pqvlnekx-mfdrcof 3,000-9,500-15,000 unit capsule,delayed releas 12.43802 cap PO TID #90 cap 05/04/18 [Rx [...] Additional Codes Procedures - Manipulation: 3-4 regions (95331) 06/22/18 1636 <Electronically signed by [facility]> Date [facility] Cosigner Signature: Date (if applicable) CC: SCREENING MAMM (CAD), Observed: 06/15/2018 Status: F Source: [place] 12:23 PM [facility] REPOSITORY [facility] Imaging Services [address] [place] [address] SCREENING MAMM (CAD), BILAT MR#: [id number] Acct: [id number] Name: DEVON BARAHONA Rep #: [id number] : 1960 F 57 From: Klaus Bergman MD PCP: Kolby Alaniz DO Status: REG CLI Study: SCREENING MAMM (CAD), BILAT Date of Exam: 06/15/18 Exam# [id number] Ordering Dr: Kolby Alaniz DO MAMMOGRAPHY - [...] delay biopsy of a clinically suspicious abnormality. [id number] Electronically Signed: Klaus Bergman MD at 14:28 EST Tel [phone], Service support , CC: Kolby Alaniz DO Dice Person: Signed CNPN Observed: 06/14/2018 Status: COMPLETED Source: [place] 12:00 AM [facility] REPOSITORY Telephone (PULMWS) DEVON BARAHONA ([id number]) 1960 F Date Time Provider Department 06/14/18 LOU MENDOZA During your visit today, we recorded the following information about you: Luly Wilde 06/14/2018 9:32 AM Signed Devon Barahona is calling Lou Mendoza MD today requesting the orders for C-Pap supplies are faxed to [place], [place] - Please fax order to [phone] These orders were orignally faxed to [facility] and patient was told by [facility] yesterday she is not in their area and unable to fill the request. She was directed to [facility] in [place]. The [place] location advised patient it would take up to two weeks to start the process on getting her supplies. [facility] is able to assist the patient and fill order once they are received. Please call patient when completed. Patient has been without her Cpap Otilia Branch LPN 06/14/2018 1:44 PM Signed Faxed to [facility]. Patient notified. Otilia Zamora Psr 06/19/2018 1:47 PM Signed Patient called today stating [facility] needed her most recent PSG. This PSS faxed over the report to [phone] from her 04/21/15 study which patient confirmed [...] MCG/A* Inhale 2 Puffs as instructed * WBDGFB-MBQQTWPZ-WLWPWLY 3,000* Take 1 capsule by mouth three* [...] COMPLETED Source: [place] 1:00 PM [facility] REPOS[facility] Office Visit (PULMWS) DEVON BARAHONA ([id number]) 1960 F Date Time Provider Department 06/01/18 [...] GI: notes heartburn. notes dysphagia. denies diarrhea. 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 denies hesitancy. denies nocturia. Menses: Post menopausal Musculoskeletal: denies pain. Neuro: notes headache- temporal, denies focal weakness. denies tremor. Skin: denies rash. Otherwise negative. Lou Mendoza MD 06/02/2018 1:31 PM Signed [facility] [place], 06/01/2018: ? INTERVAL HISTORY: Ms. Barahona is [...] hemoptysis, wheezing, chest tightness. 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 Lou Mendoza MD, [facility] [address] [address] Lou Mendoza MD 06/02/2018 1:30 [...] nasal pillows/cradle cushion system. Lou Mendoza MD, [facility] [address] [address] P: [phone] F: [phone] [email or web address] ? Referring Provider: IVET MEDELLIN [[id number]] Allergies As of Date: 06/01/2018 Noted Allergy [...] (obstructive sleep apnea) [G47.33] Post-nasal drip [R09.82] Order(s):vrsloi-ifkroasc-hbzvnwx (CREON 3) 3,000-9,500- 15,000 unitTake 1 capsule [...] unit.Disp: 1 EachRfl: 0 SPIROMETRY BASELINE ONLY [5656496] Order #: [id number] FUTURE tiotropium bromide (SPIRIVA RESPIMAT) 1.25 mcg/actuation [...] MCG/A* Inhale 2 Puffs as instructed * WGMDRO-KSQHKJHS-SWDKTRA 3,000* Take 1 capsule by mouth three* [...] nasal pillows/cradle cushion system. Lou Mendoza MD, [facility] [place] [facility] [address] [place] [address] P: [phone] F: [phone] [email or web address] ? Visit Notes: >> Otilia Branch GABRIEL [facility] Jun 01, 2018 12:39 PM Status: Attested ROS: General: Generally feels short of breath with exertion/rushing. Appetite good. Eyes, Ears, nose, throat: notes post nasal drip. notes rhinorrhea. denies purulent nasal discharge. denies epistaxis. notes hoarseness. Vision stable. Cardiac: denies angina, denies edema, denies orthopnea. GI: notes heartburn. notes dysphagia. denies diarrhea. 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 denies hesitancy. denies nocturia. Menses: Post menopausal Musculoskeletal: denies pain. Neuro: notes headache- temporal, denies focal weakness. denies tremor. Skin: denies rash. Otherwise negative. Prescriptions ordered this encounter Disp Refills Start End RISPRV-XUFFEOLS-GBZAYMV 3,000-9,500-* 06/01/2018 Class: Med Update Route: ORAL [...] 06/02/18 PROGRESS Observed: 06/01/2018 Status: COMPLETED Source: [place] 12:43 PM [facility] [place] REPOSITORY HNO ID: [id number] Author: Lou Mendoza Service: (none) Author Type: Physician Type: Progress Notes Filed: 06/02/2018 1:31 PM Note Text: [facility] [place], 06/01/2018: ? INTERVAL HISTORY: Ms. Barahona is [...] hemoptysis, wheezing, chest tightness. 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 [facility], [facility] [place] [facility] [address] [place] [address] BRAIN W/WO CONTRAST Observed: 05/24/2018 Status: F Source: [place] 12:08 PM [facility] [place] [address] Brain W/WO Contrast MR#: [id number] Acct: [id number] Name: DEVON BARAHONA Rep #: [id number] : 1960 F 57 From: Osmin Lindsay MD PCP: Kolby Alaniz DO Status: REG CLI Study: Brain W/WO Contrast Date of Exam: 05/24/18 Exam# [id number] Ordering Dr: Kolby Alaniz DO STUDY: MRI [...] Service support , CC: Kolby Alaniz DO Dice Person: Signed CHIROPRACTIC REPORT Observed: 05/22/2018 Status: F Source: [place] 2:16 PM [facility] [address] [place] [address] OFFICE VISIT Date of Service: 05/22/18 MR#: [id number] Acct: [id number] Name: DEVON BARAHONA Rep #: [id number] : 1960 Provider: [facility] 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 Signature: Date (if applicable) CC: CNCO Observed: 05/15/2018 Status: COMPLETED Source: [place] 12:00 AM [facility] RE[facility] Letter Text Christina Zamudio DO [facility] [address] [place] [address] Devon Barahona May 15, 2018 Devon Barahona [address] [facility] [address] Dear Devon Barahona: Due to a change in your provider's schedule, it has become necessary to cancel the following appointment: Christina Zamudio DO Date: 07/17/18 Time: 11:20 a.m. We apologize for any inconvenience to you, however your provider would still like to see you. Please call us at [phone] to reschedule your appointment. Sincerely, Appointment Staff CHIROPRACTIC REPORT Observed: 05/10/2018 Status: F Source: [place] 8:05 AM [facility] [address] [place] [address] OFFICE VISIT Date of Service: 05/02/18 MR#: [id number] Acct: [id number] Name: DEVON BARAHONA Rep #: [id number] : 1960 Provider: [facility]. Age/Sex: 57/F Location: [facility] Status: Signed Intake Vital Signs05/02/18 Height 5 [...] BID #180 cap 04/27/18 [Rx Confirmed 05/04/18] tbkomb-clrbajpy-xylrzat 3,000-9,500-15,000 unit capsule,delayed releas 12.04370 cap PO TID #90 cap 05/04/18 [Rx [...] Additional Codes Procedures - Manipulation: 3-4 regions (24578) 05/10/18 0805 <Electronically signed by [facility]> Date [facility] Cosigncolby Signature: Date (if applicable) CC: INTERNAL MEDICINE Observed: 05/04/2018 Status: F Source: [place] OFFICE VISIT 2:46 PM [facility] [address] [place] [address] OFFICE VISIT Date of Service: 05/04/18 MR#: [id number] Acct: [id number] Name: DEVON BARAHONA Katy Rep #: [id number] : 1960 Provider: Kolby Alaniz DO Age/Sex: 57/F Location: [facility] Status: Signed Intake Vital Signs05/04/18 Height 5 [...] BID #180 cap 04/27/18 [Rx Confirmed 05/04/18] txaefd-zhyrykus-wfkymyu 3,000-9,500-15,000 unit capsule,delayed releas 12.95304 cap PO TID #90 cap 05/04/18 [Rx [...] Judgment: judgment good Office Meds Flucelvax Quad 9837-7565 (PF) Performing Provider: Kolby Alaniz DO Administered by: Radha Wilson on 05/04/18 14:45 Dose Route Admin Location Lot Number Expiration Date NDC Product Design Specialist 60 mcg IM Rt Deltoid [id number] 12/15/18 81198-557-32 SEQIRUS Assessment AND Plan Problems 1. Gastroesophageal [...] her initial exam. Orders Orders: Medications New: tshzwm-yjshlkxp-tpypnrb 3,000-9,500- 15,000 unit (Creon)12.17703 caps PO TID 90 caps 2RF ; do not crush/chew; swallow whole OR open/sprinkle on applesce; DNExceed 10,000 units/kg lipase/24 hrs Discontinued: Fluad 2017- 65yr up(PF)45 mcg(15 mcgx3)/0.5 mL intramus0.5 mL IM ONCE 0.5 mL 0RF NS Z23 cular syringe (flu vac 2017 65up-zmjKK14R(PF)) Discont inued Reason: Incorrect ordering MD Plan [...] Kolby Alaniz DO> Date Kolby Alaniz DO [facility] Signature: Date (if applicable) CC: INTERNAL MEDICINE Observed: 04/18/2018 Status: F Source: [place] OFFICE VISIT 4:56 PM [facility] [address] [place] [address] OFFICE VISIT Date of Service: 04/18/18 MR#: [id number] Acct: [id number] Name: DEVON BARAHONA Rep #: [id number] : 1960 Provider: Kolby Alaniz DO Age/Sex: 57/F Location: [facility] Status: Signed Intake Vital Signs04/18/18 Height 5 [...] as she has been paying for it oygu-vyf-ojdjrdo. She has trouble with her throat feeling [...] but has had to pay for it bntn-nyu-lfifmih she requested me to write it as [...] CHIROPRACTIC REPORT Observed: 04/18/2018 Status: F Source: [place] 4:44 PM [facility] [address] [place] [address] OFFICE VISIT Date of Service: 04/18/18 MR#: [id number] Acct: [id number] Name: DEVON BARAHONA Rep #: [id number] : 1960 Provider: [facility]. Age/Sex: 57/F Location: [facility] Status: Signed Intake Vital Signs04/18/18 Height 5 [...] Additional Codes Procedures - Manipulation: 3-4 regions (23777) 04/18/18 0734 <Electronically signed by [facility]> Date [facility] Laura Izzy Signature: Date (if applicable) CC: TESTOSTERONE, SERUM TOTAL Collected: 04/18/2018 Status: F Source: [place] 3:50 PM [facility] TYPE CODE TESTS RESULT OUT OF [...] CHANGED 07/06/2017 Performed By: #### L509.3000 #### [facility] [address] [place], [place], [address] ERYTHROCYTE SED RATE Collected: 04/18/2018 Status: F Source: [place] 3:40 PM [facility] TYPE CODE TESTS RESULT OUT OF RANGE REFERENCE UNITS LAB L102.0000 0-30 mm/hr Normal SED RATE 23 Performed By: #### L101.9900 #### [facility] [address] [place], [address] COMPREHENSIVE METABOLIC Collected: 04/18/2018 Status: F Source: [facility] 3:40 PM [facility] TYPE CODE TESTS RESULT OUT OF [...] Performed By: #### L500.4050, L500.4100, L501.9520 #### [facility] [address] [place], [address] LIPID PROFILE Collected: 04/18/2018 Status: F Source: [place] 3:40 PM [facility] TYPE CODE TESTS RESULT OUT OF [...] Performed By: #### L500.4050, L500.4100, L501.9520 #### [facility] [address] [place], [address] THYROID STIM HORMONE Collected: 04/18/2018 Status: F Source: [place] ([facility]) 3:40 PM [facility] TYPE CODE TESTS RESULT OUT OF RANGE REFERENCE UNITS LAB L501.9520 0.358-3.74 uIU/mL Normal TSH 0.91 Performed By: #### L500.4050, L500.4100, L501.9520 #### [facility] [address] [facility] [place], [address] TIBIA AND FIBULA Observed: 04/18/2018 Status: F Source: [place] 2 VIEWS 3:38 PM [facility] Imaging Services [address] [place] [address] Tibia AND Fibula 2 Views MR#: [id number] Acct: [id number] Name: DEVON BARAHONA Rep #: [id number] : 1960 F 57 From: Homer Ambroes DO PCP: Kolby Alaniz DO Status: REG CLI Study: Tibia AND Fibula 2 Views Date of Exam: 04/18/18 Exam# [id number] Ordering Dr: Kolby Alaniz DO STUDY: X-RAY [...] Homer Ambrose DO at 23:54 EDT Tel [phone], Service support , CC: Kolby Alaniz DO Dice Person: Signed CHIROPRACTIC REPORT Observed: 04/06/2018 Status: F Source: [place] 2:36 PM [facility] [address] [place] [address] OFFICE VISIT Date of Service: 04/06/18 MR#: [id number] Acct: [id number] Name: DEVON BARAHONA Rep #: [id number] : 1960 Provider: [facility] Age/Sex: 57/F Location: [facility] Status: Signed Intake Vital Signs04/06/18 Height 5 [...] Additional Codes Procedures - Manipulation: 3-4 regions (73739) 04/06/18 1436 <Electronically signed by [facility]> Date [facility] Cosigner Signature: Date (if applicable) CC: CHIROPRACTIC REPORT Observed: 03/23/2018 Status: F Source: [place] 12:08 PM [facility] [address] [place] [address] OFFICE VISIT Date of Service: 03/21/18 MR#: [id number] Acct: [id number] Name: DEVON BARAHONA Katy Rep #: [id number] : 1960 Provider: [facility] D.[facility]. Age/Sex: 57/F Location: [facility] Status: Signed Intake Vital Signs03/21/18 Height 5 [...] mg PO ONCE 11/08/17 [History Confirmed 11/08/17] [facility] Medical History Acute asthma (Acute) Arthritis (Acute) [...] Additional Codes Procedures - Manipulation: 3-4 regions (28436) 03/23/18 1208 <Electronically signed by [facility]> Date [facility] Cosigner Signature: Date (if applicable) CC: CHIROPRACTIC REPORT Observed: 03/15/2018 Status: F Source: [place] 8:20 AM [facility] [address] [place] [address] OFFICE VISIT Date of Service: 03/13/18 MR#: [id number] Acct: [id number] Name: DEVON BARAHONA Rep #: [id number] : 1960 Provider: [facility]. Age/Sex: 57/F Location: [facility] Status: Signed Intake Vital Signs03/13/18 Height 5 [...] mg PO ONCE 11/08/17 [History Confirmed 11/08/17] [facility] Medical History Acute asthma (Acute) Arthritis (Acute) [...] Additional Codes Procedures - Manipulation: 3-4 regions (53846) 03/15/18 0820 <Electronically signed by [facility]> Date Sultana Brownign Signature: Date (if applicable) CC: CHIROPRACTIC REPORT Observed: 03/06/2018 Status: F Source: [place] 2:05 PM [facility] [address] [place] [address] OFFICE VISIT Date of Service: 03/06/18 MR#: [id number] Acct: [id number] Name: DEVON BARAHONA Rep #: [id number] : 1960 Provider: [facility]. Age/Sex: 57/F Location: [facility] Status: Signed Intake Vital Signs03/06/18 Height 5 [...] Additional Codes Procedures - Manipulation: 3-4 regions (56169) 03/06/18 1405 <Electronically signed by Sultana North D.C.> Date Sultana North D.C. Cosigner Signature: Date (if applicable) CC: CHIROPRACTIC REPORT Observed: 02/09/2018 Status: F Source: [place] 1:41 PM [facility] [address] [place] [address] OFFICE VISIT Date of Service: 02/06/18 MR#: [id number] Acct: [id number] Name: DEVON BARAHONA Rep #: [id number] : 1960 Provider: Sultana North D.C. Age/Sex: 57/F Location: [facility] Status: Signed Intake Vital Signs02/06/18 Height 5 [...] Additional Codes Procedures - Manipulation: 1-2 regions (54750) 02/09/18 1341 <Electronically signed by Sultana North D.C.> Date Sultana North D.C. Cosigner Signature: Date (if applicable) CC: NUCLEAR STRESS Observed: 02/08/2018 Status: F Source: [place] (CARD) 9:03 AM [facility] OTHER CAMPUS REPOSITORY NAME : DEVON BARAHONA PID : [id number] : 1960 Gender : Female Race : ORD : [id number] Procedure Date : Feb 08 2018 09:03:36 Edit Date : Feb 13 2018 12:41:11 Conclusions:PLEASE REFER TO IMAGING SECTION IN [facility] FOR COMPLETE INTERPRETATION OF STRESS TEST [...] Status: F Source: [place] STRESS/PHARM 8:21 AM [facility] OTHER CAMPUS REPOSITORY * * *Final Report* [...] 60 minutes later. See administered doses below. [facility] Date of service: 02/08/2018 8:21:45 AM [...] normal sinus rhythm. Stress complications: none. Final Dice Person: KATELIN Sumnerriwaqas Date/Time: Feb 08 2018 8:21A Dictated by : CHRISTINA ZAMUDIO DO This examination was interpreted and the report reviewed and electronically signed by: CHRISTINA ZAMUDIO DO on Feb 08 2018 12:58PM EST [id number] PROGRESS Observed: 02/01/2018 Status: COMPLETED Source: [place] 12:28 PM [facility] MAIN CAMPUS REPOSITORY HNO ID: [id number] Author: Dayami Duggan Service: (none) Author Type: [...] quit by winter due to having her tffsxa-dw-aje living with her and he requires oxygen. had been sick from June to December and no longer working due to COPD. COPD - Follows with Dr. Mendoza every 6 months but due to recent PFT they want her to f/u in 3-4 months. Saw [employer] WE[employer] DEVELOPER Ivet Medellin in December. States the Tudorza 400 mcg 1 inhalation twice daily does help, but recently feels more sob. Has had increased anxiety lately due to taking care of her hjytfy-sr-oqh. Cardio - Follows with Dr. Olivarez every 6 months. Was scheduled for a Stress Test but had to cancel due to her qlwpxo-yd-kgq being d/c from TCU. Admits to sob [...] Capsulotomy - EGD 05/24/14 - EGD W/O [facility] SPECIMEN W/BX 04/17/10 - EXCISION MALIGNANT LESIONS,VUL 1996 Dr. Rehman. No recent F/U. in vulvar region - HEART CATHETERIZATION 04/2011 normal no CAD - MAMMO MAMMOGRAM 2009 [facility] - PAST SURGICAL HISTORY OF age [...] - SLING OPER STRES INCONTINENCE 11/26/10, 04/2011 [facility] surgery Family History FAMILY HISTORY Problem Relation [...] PM. CNOV Observed: 02/01/2018 Status: COMPLETED Source: [place] 12:20 PM [facility] REPOSITORY Office Visit (FAMPWS) DEVON BARAHONA ([id number]) 1960 F Date Time Provider Department 02/01/18 [...] quit by winter due to having her gvgamn-jb-ais living with her and he requires oxygen. had been sick from June to December and no longer working due to COPD. COPD - Follows with Dr. Mendoza every 6 months but due to recent PFT they want her to f/u in 3-4 months. Saw [employer] DEVELOPER Ivet Medellin in December. States the Tudorza 400 mcg 1 inhalation twice daily does help, but recently feels more sob. Has had increased anxiety lately due to taking care of her cptnyz-wv-jrr. Cardio - Follows with Dr. Olivarez every 6 months. Was scheduled for a Stress Test but had to cancel due to her hmubcy-fv-srt being d/c from TCU. Admits to sob [...] 03/17/2010 - COPD (chronic obstructive pulmonary disease) ([facility]) - Esophagitis, unspecified - Family history of [...] Capsulotomy - EGD 05/24/14 - EGD W/O [facility] SPECIMEN W/BX 04/17/10 - EXCISION MALIGNANT LESIONS,VUL [address] Dr[address] Rehman. No recent F/U. in vulvar region - HEART CATHETERIZATION 04/2011 normal no CAD - MAMMO MAMMOGRAM 2009 [facility] - PAST SURGICAL HISTORY OF age [...] - SLING OPER STRES INCONTINENCE 11/26/10, 04/2011 [facility] Family History FAMILY HISTORY Problem Relation [...] 2018 12:28 PM. Referring Provider: DAYAMI DUGGAN [[id number]] Allergies As of Date: 02/01/2018 Noted Allergy [...] days.Disp: 360 tabletRfl: 0 CONSULT TO GASTROENTEROLOGY [7814] Order #: [id number]: 1 Prescriptions as of 02/01/2018 Sig: LORAZEPAM [...] CHIROPRACTIC REPORT Observed: 01/23/2018 Status: F Source: [place] 9:42 AM [facility] [address] [place] [address] OFFICE VISIT Date of Service: 01/17/18 MR#: [id number] Acct: [id number] Name: DEVON BARAHONA Rep #: [id number] : 1960 Provider: Sultana North D.C. Age/Sex: 57/F Location: [facility] Status: Signed Intake Vital Signs01/17/18 Height 5 [...] Additional Codes Procedures - Manipulation: 1-2 regions (54813) 01/23/18 0942 <Electronically signed by Sultana North D.C.> Date Sultana Magana Signature: Date (if applicable) CC: PROGRESS Observed: 01/11/2018 Status: COMPLETED Source: [place] 2:10 PM [facility] MAIN CAMPUS REPOSITORY O ID: [id number] Author: Christina Zamudio Service: (none) Author Type: [...] Capsulotomy - [facility]GD 05/24[facility]14 - [facility] 04/17/10 - EXCISION MALIGNANT LESIONS,VUL [address] Dr. Rehman. No recent F/U. in vulvar region - HEART CATHETERIZATION 04/2011 normal no CAD - MAMMO MAMMOGRAM 2009 [facility] - PAST SURGICAL HISTORY OF age [...] JVD, carotids well felt, no bruits. CARDIAC: [place] palpable in the 5th intercostal space mid [...] MR ECHO 06/15/[address] Fernandez in [place]: CONCLUSIONS: - Technically difficult exam due to [...] are no gross valvular abnormalities. - Prior [place] echo of 04/25/15 is similar. Regadenoson SPECT MPI (today) moderate size, mild intensity defect in mid to distal anterior wall c/w ischemia (LAD/Dx). CATH 04/22/11, nl coronaries, increase LVEDP 20 Cholesterol (mg/dL) Date Date Value Low High Status 05/26/2011 291* 100 199 Final HDL Cholesterol (mg/dL) Date Date Value Low High Status 05/26/2011 54* >55 Final LDL Chol, [place] (mg/dL) Date Date Value Low High Status [...] DO, FACC, FCCP, FACOI Dayami Duggan MD [address] [place] [address] CNOV Observed: 01/11/2018 Status: COMPLETED Source: [place] 2:00 PM [facility] MAIN CAMPUS REPOSITORY Office Visit (CARDMM) DEVON BARAHONA ([id number]) 1960 F Date Time Provider Department 01/11/18 [...] Capsulotomy - EGD 05/24/14 - EGD W/O [facility] SPECIMEN W/BX 04/17/10 - EXCISION MALIGNANT LESIONS,VUL [address] Dr. Rehman. No recent F/U. in vulvar region - HEART CATHETERIZATION 04/2011 normal no CAD - MAMMO MAMMOGRAM 2009 [facility] - PAST SURGICAL HISTORY OF age [...] JVD, carotids well felt, no bruits. CARDIAC: [place] palpable in the 5th intercostal space mid [...] MR ECHO 06/15/[address] Fernandez in [place]: CONCLUSIONS: - Technically difficult exam due to [...] are no gross valvular abnormalities. - Prior [place] echo of 04/25/15 is similar. Regadenoson SPECT MPI (today) moderate size, mild intensity defect in mid to distal anterior wall c/w ischemia (LAD/Dx). CATH 04/22/11, nl coronaries, increase LVEDP 20 Cholesterol (mg/dL) Date Date Value Low High Status 05/26/2011 291* 100 199 Final HDL Cholesterol (mg/dL) Date Date Value Low High Status 05/26/2011 54* >55 Final LDL Chol, [place] (mg/dL) Date Date Value Low High Status [...] , FACC, FCCP, FACOI Dayami Duggan MD [address] [place] [address] Referring Provider: DAYAMI DUGGAN [[id number]] Allergies As of Date: 01/11/2018 Noted Allergy [...] apnea) [G47.33] Panlobular emphysema (HCC) [J43.1] Order(s):ECHO [[id number]] Order #: [id number]: 1 FUTURE PHARMACOLOGIC STRESS W/NUC IMAGING [8067526] Order #: [id number]: 1 NM CARDIAC PERF STRESS/PHARM [[id number]] Order #: [id number] FUTURE Prescriptions as of 01/11/2018 Sig: ZOLPIDEM [...] CHIROPRACTIC REPORT Observed: 12/08/2017 Status: F Source: [place] 2:12 PM [facility] [address] [place] [address] OFFICE VISIT Date of Service: 12/08/17 MR#: [id number] Acct: [id number] Name: DEVON BARAHONA Rep #: [id number] : 1960 Provider: Sultana North D.C. Age/Sex: 57/F Location: [facility] Status: Signed Intake Vital Signs12/08/17 Height 5 [...] mg PO ONCE 11/08/17 [History Confirmed 11/08/17] [facility] Medical History Acute asthma (Acute) Arthritis (Acute) [...] Additional Codes Procedures - Manipulation: 1-2 regions (31818) Procedures - Traction, Mechanical: Yes (00183) 12/08/17 1412 <Electronically signed by Sultana North D.C.> Date Sultana North D.C. Cosigner Signature: Date (if applicable) CC: CHIROPRACTIC REPORT Observed: 11/28/2017 Status: F Source: [place] 3:01 PM [facility] [address] [place] [address] OFFICE VISIT Date of Service: 11/24/17 MR#: [id number] Acct: [id number] Name: DEVON BARAHONA Rep #: [id number] : 1960 Provider: Sultana Dossi, D.C. Age/Sex: 57/F Location: [facility] Status: Signed Intake Vital Signs11/24/17 Height 5 [...] mg PO ONCE 11/08/17 [History Confirmed 11/08/17] [facility] Medical History Acute asthma (Acute) Arthritis (Acute) [...] Additional Codes Procedures - Traction, Mechanical: Yes (49597) Procedures - Manipulation: 3-4 regions (99575) 11/28/17 1501 <Electronically signed by Sultana North D.C.> Date Sultana North D.C. Cosigner Signature: Date (if applicable) CC: PROGRESS Observed: 11/21/2017 Status: COMPLETED Source: [place] 2:31 PM [facility] REPOSITORY HNO ID: [id number] Author: Ivet Medellin Service: (none) Author Type: Physician Assistant Distribution Manager Type: Progress Notes Filed: 11/21/2017 3:20 PM Note Text: [facility] [place], 11/21/2017: ? INTERVAL HISTORY: Ms. Barahona is here for follow up of COPD and obstructive sleep apnea. Since the 04/2017 visit, the patient has not sought MD, ED or hospital care for exacerbation. ? She has been compliant with prescribed Rx. Daily cough; occasionally with clear sputum. No hemoptysis, wheezing, chest tightness. Exertional dyspnea, stable. 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 GI: Heartburn, constantly. No dysphagia, diarrhea. Uro/SHIP UNLOADER: No dysuria, hesitancy, nocturia. Musculoskeletal: No pain. [...] of my answers ? Ivet Medellin PA-C [facility] [address] [place] [address] ? CNOV Observed: 11/21/2017 Status: COMPLETED Source: [place] 2:30 PM [facility] REPOSITORY Office Visit (PULMWS) DEVON BARAHONA ([id number]) 1960 F Date Time Provider Department 11/21/17 2:30 PM IVET MEDELLIN PULWS During your visit today, we recorded the following information about you: Pulse Respiration Blood pressure Weight 74/minute 16/minute 120/80 100.7 kg Height 1.6 m Otilia Branch GABRIEL 11/21/2017 2:21 PM Signed Intake information documented in the prior visit with Karen Spears, REPLENISHMENT MERCHANDISING ASSOCIATE today. Ivet Medellin 11/21/2017 3:20 PM Signed [facility], 11/21/2017: ? INTERVAL HISTORY: Ms. Barahona is here for follow up of COPD and obstructive sleep apnea. Since the 04/2017 visit, the patient has not sought MD, ED or hospital care for exacerbation. ? She has been compliant with prescribed Rx. Daily cough; occasionally with clear sputum. No hemoptysis, wheezing, chest tightness. Exertional dyspnea, stable. 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 GI: Heartburn, constantly. No dysphagia, diarrhea. Uro/SHIP UNLOADER: No dysuria, hesitancy, nocturia. Musculoskeletal: No pain. [...] of my answers ? Ivet Medellin PA-C [facility] [place] [address] [place] [address] ? Ivet Medellin 11/21/2017 3:18 [...] on CPAP [G47.33, Z99.89] Order(s):SPIROMETRY BASELINE ONLY [[id number]] Order #: [id number] FUTURE Prescriptions as of 11/21/2017 Sig: ZOLPIDEM [...] CHIROPRACTIC REPORT Observed: 11/15/2017 Status: F Source: [place] 2:00 PM [facility] [address] [place] [address] OFFICE VISIT Date of Service: 11/14/17 MR#: [id number] Acct: [id number] Name: DEVON BARAHONA Rep #: [id number] : 1960 Provider: Sultana North D.C. Age/Sex: 57/F Location: [facility] Status: Signed Intake Vital Signs11/14/17 Height 5 [...] Additional Codes Procedures - Manipulation: 1-2 regions (84001) 11/15/17 1400 <Electronically signed by Sultana North D.C.> Date Sultana North D.C. Cosigner Signature: Date (if applicable) CC: CHIROPRACTIC REPORT Observed: 11/10/2017 Status: F Source: [place] 4:16 PM [facility] [address] [place], [place] [address] OFFICE VISIT Date of Service: 11/08/17 MR#: [id number] Acct: [id number] Name: DEVON BARAHONA Rep #: [id number] : 1960 Provider: Sultana North D.C. Age/Sex: 57/F Location: [facility] Status: Signed Intake Vital Signs11/08/17 Height 5 [...] imaging that patient brought with her. Lumbar rotation-ID. RIL:, LIL:PI. Decreased L5 disc height. Facet arthropathy at L4/L5. Goals Decrease pain Increase ROM Follow Up 1 Week Coding Level of Care Code Off vis,new,level 3 Diagnoses Back pain M54.9 Segmental and somatic dysfunction of lumbar region M99.03 Segmental and somatic dysfunction of thoracic region M99.02 Segmental and somatic dysfunction of pelvic region M99.05 Additional Codes Procedures - Manipulation: 3-4 regions (11044) 11/10/17 5726 <Electronically signed by Sultana North D.C.> Date Sultana North D.C. Cosigner Signature: Date (if applicable) CC: XR LUMBAR 3V Observed: 10/31/2017 Status: F Source: [place] AP/LAT/L5-S1 2:58 PM [facility] MAIN CAMPUS REPOSITORY * * *Final Report* [...] spine are presented. FINDINGS: There are five idy-kco-zvfgjkb lumbar vertebra. No fracture or subluxations are noted. The disc spaces are well preserved. There is mild osteophyte formation. IMPRESSION: Lumbar spine mild degenerative changes. Dice Person: PSCB Transcribe Date/Time: Oct 31 2017 7:38P Dictated by : SUE MURRAY MD This examination was interpreted and the report reviewed and electronically signed by: SUE MURRAY MD on Oct 31 2017 7:39PM EST [id number] PROGRESS Observed: 10/31/2017 Status: COMPLETED Source: [place] 2:57 PM [facility] REPOSITORY HNO ID: [id number] Author: Logan Aguilera (Rt) Service: (none) Author Type: Batch Records Clerk Type: Progress Notes Filed: 10/31/2017 2:58 PM [...] PM PROGRESS Observed: 10/31/2017 Status: COMPLETED Source: [place] 1:56 PM [facility] REPOSITORY HNO ID: [id number] Author: Dayami Duggan Service: (none) Author Type: [...] set up to see Dr. Bharathi Sosa, grievance and appeals specialist. She did PT in past for [...] - ALIYA (obstructive sleep apnea) 02/17/2011 - [facility] - PAST MEDICAL HISTORY OF 1996 vulva cancer - Ulcer Previous Surgical History PAST SURGICAL HISTORY Procedure Laterality Date - BX OF BREAST; INCISIONAL Left 05/17/2017 - COLONOSCOPY 05/24/14 Repeat due 2016 - COLONOSCOPY 03/30/16 tubular adenoma, repeat in 3 years - DISCISSION,2ND CATARACT,LASER Right 10/14/2015 Yag Capsulotomy - EGD 05/24/14 - EGD W/O [facility] SPECIMEN W/BX 04/17/10 - EXCISION MALIGNANT LESIONS,VUL 1996 Dr. Rehman. No recent F/U. in vulvar region - HEART CATHETERIZATION 04/2011 normal no CAD - MAMMO MAMMOGRAM 2009 [facility] - PAST SURGICAL HISTORY OF age [...] - SLING OPER STRES INCONTINENCE 11/26/10, 04/2011 [facility] surgery Family History FAMILY HISTORY Problem Relation [...] PM. CNOV Observed: 10/31/2017 Status: COMPLETED Source: [place] 1:20 PM [facility] REPOSITORY Office Visit (FAMPWS) DEVON BARAHONA ([id number]) 1960 F Date Time Provider Department 10/31/17 1:20 PM [facility] During your visit today, we recorded [...] set up to see Dr. Bharathi Sosa, grievance and appeals specialist. She did PT in past for [...] Capsulotomy - EGD 05/24/14 - [facility] 04/17/10 - EXCISION MALIGNANT LESIONS,VUL 1996 Dr. Rehman. No recent F/U. in vulvar region - HEART CATHETERIZATION 04/2011 normal no CAD - MAMMO MAMMOGRAM 2009 [facility] - PAST SURGICAL HISTORY OF age [...] - SLING OPER STRES INCONTINENCE 11/26/10, 04/2011 [facility] Family History FAMILY HISTORY Problem Relation [...] twitch [R25.3] Order(s):XR LUMBAR GENERAL 3V AP/LAT/L5-S1 [[id number]] Order #: [id number] FUTURE Prescriptions as of 10/31/2017 Sig: LORAZEPAM [...] ED NOTE Observed: 10/26/2017 Status: COMPLETED Source: [place] 10:49 AM [facility] OTHER STITES REPOSITORY HNO ID: [id number] Author: Venita (Rn) CÉSAR Crawford Service: Emergency Medicine Author Type: Registered Nurse Type: ED Notes Filed: 10/26/2017 10:50 AM Note Text: Discharge instructions reviewed with patient via teachback. Pt awake and alert, respirations stable. Pt verbalizes understanding. No further questions for this RN. XR CHEST 1V FRONTAL Observed: 10/26/2017 Status: F Source: [facility] 10:35 AM [facility] OTHER CAMPUS REPOSITORY * * *Final Report* [...] acute abnormality. No radiopaque foreign body noted. Dice Person: ALEXX Transcribe Date/Time: Oct 26 2017 10:36A Dictated by : JANESSA GAUTAM MD This examination was interpreted and the report reviewed and electronically signed by: JANESSA GAUTAM MD on Oct 26 2017 10:37AM EST [id number] ED PROV NOTE Observed: 10/26/2017 Status: COMPLETED Source: [place] 10:01 AM CLINIC OTHER CAMPUS REPOSITORY HNO ID: [id number] Author: Karen Hayes (Pa) Service: (none) Author Type: Physician Assistant Distribution Manager Type: ED Provider Notes Filed: 10/26/2017 10:46 [...] and/or lung. Patient does not work for [employer], has no GI symptoms, no shortness of [...] normal no CAD - MAMMO MAMMOGRAM 2009 [facility] - PAST SURGICAL HISTORY OF age [...] ED NOTE Observed: 10/26/2017 Status: COMPLETED Source: [place] 9:35 AM [facility] OTHER CAMPUS REPOSITORY HNO ID: [id number] Author: Aracelis (Rn) CÉSAR Murdock Service: (none) Author Type: Registered Nurse Type: ED Notes Filed: 10/26/2017 9:36 AM Note Text: Patient presents with c/o worm under her skin in her upper back on right side-by shoulder blade that itches PROGRESS Observed: 09/12/2017 Status: COMPLETED Source: [place] 2:49 PM [facility] MAIN STITES REPOSITORY HNO ID: [id number] Author: Bernard Guthrie Service: (none) Author Type: [...] day. This note was partially generated using [employer] voice recognition system and as such may contain grammatical or word errors PROGRESS Observed: 09/12/2017 Status: COMPLETED Source: [place] 1:21 PM CLINIC OTHER CAMPUS REPOSITORY HNO ID: [id number] Author: Rae Dominguez) JANE Almanza Service: (none) Author Type: Clinical Batch Records Clerk Type: Progress Notes Filed: 09/12/2017 1:22 PM Note Text: NAME:Devon Barahona DATE: September 12, 2017 [facility]#: [id number] Pelvis X-Ray and Hip X-Ray COMPLETED TECH ID SIGN: RAE ALMANZA XR HIP 3V PELV+ Observed: 09/12/2017 Status: F Source: [place] AP/LAT LT 1:05 PM CLINIC OTHER CAMPUS [...] seen. IMPRESSION: Moderate narrowing both hip joints. Dice Person: PSCB Transcribe Date/Time: Sep 12 2017 2:02P Dictated by : CINDY DURBIN DO This examination was interpreted and the report reviewed and electronically signed by: CINDY DURBIN DO on Sep 12 2017 4:33PM EST [id number] COMP METABOLIC PANEL Collected: 09/01/2017 Status: F Source: [place] 2:21 PM [facility] REPOSITORY TYPE CODE TESTS RESULT OUT OF REFERENCE UNITS RANGE LAB TP 6.3-8.0 g/dL Protein, Total 7.1 LAB ALB 3.9-4.9 g/dL Albumin 4.3 LAB CA 8.5-10.2 mg/dL Calcium, Total 9.4 LAB TBIL 0.2-1.3 mg/dL Bilirubin, Total 1.0 LAB ALKP 32-117 U/L Alkaline Phosphatase 111 LAB AST 13-35 U/L AST 17 LAB GLU 74-99 mg/dL Glucose 77 Result Comment: The [place] Diabetes Association (ADA) provides guidance for cutoff [...] Standards of Medical Care in Diabetes 2016, [place] [employer]. Diabetes Care. 2016.39(Suppl 1). LAB [...] GFR. Performed By: #### CMP, LIPB #### [facility] [address] [place], [place] [address] LIPID PANEL, BASIC Collected: 09/01/2017 Status: F Source: [place] 2:21 PM [facility]AMP[facility] REPOSITORY TYPE CODE TESTS RESULT [...] Desk Reference: National Heart, Lung, and Blood [place]. National Institutes of Health. 2001: NIH Publication No. 01-3305. 2. An International Atherosclerosis Society position paper: global recommendations for the management of dyslipidemia: executive summary, Atherosclerosis. 2014: 232(2):410-413. Performed By: #### CMP, LIPB #### [facility] [address] [place] [id number] PROGRESS Observed: 09/01/2017 Status: COMPLETED Source: [place] 1:20 PM [facility] REPOSITORY HNO ID: [id number] Author: Dayami Duggan Service: (none) Author Type: [...] normal no CAD - MAMMO MAMMOGRAM 2009 [facility] - PAST SURGICAL HISTORY OF age [...] OPER STRES INCONTINENCE 11/26/10, 04/2011 [facility] Family History FAMILY HISTORY Problem Relation [...] SOURCE 07/25/2018 Drug hydrocodone Upset Stomach Unknown [place] Allergy/416 bitartrate/[id number] [facility] [id number]([place] [address] 07/25/2018 Drug oxycodone Other Unknown [place] Allergy/416 HCl/[id number](RXNO [facility] 024995([facility] ED CT) Repository 07/25/2018 Drug propoxyphene Vomiting Unknown [place] Allergy/416 HCl/[id number](RXNO Community 435282([facility] ED CT) Repository 07/25/2018 Drug aloe Other Unknown [place] Allergy/416 vera/[id number](RXN Community 597472([facility] ED CT) Repository 07/25/2018 Drug doxycycline/G019504 Other Unknown [place] Allergy/416 748(RXNORM) Community 778952([facility] ED CT) Repository 06/01/2018 DRUG PENICILLIN OTHER: SEE C [facility] INGREDI/419 Other [place] 394519([facility] Repository ED CT) 09/08/2012 DRUG DOXYCYCLINE OTHER: SEE C [facility] INGREDI/419 Other [place] 910339([facility] Repository ED CT) 03/26/2010 DRUG ALOE VERA RASH [facility] INGREDI/419 Other [place] 162970(SNOM Repository ED CT) 03/17/2010 DRUG/829322 HYDROCODONE-ACETAMI GI UPSET [facility] 003(SNOMED NOPHEN Other [place] CT) Repository 03/17/2010 DRUG PROPOXYPHENE HCL GI UPSET [facility] INGREDI/419 Other [place] 929544(SNOM Repository ED CT) 03/17/2010 DRUG/084971 OXYCODONE-ACETAMINO [facility] 003(SNOMED PHEN Other [place] CT) Repository 03/17/2010 DRUG/494397 HYDROCODONE-ACETAMI GI UPSET [facility] 003(SNOMED NOPHEN Other [place] CT) Repository ENCOUNTERS ENCOUNTERS ADMIT/DISCHARGE ACCOUNT ADMITTING ENCOUNTER LOCATION SOURCE NUMBER CLASS 08/10/2018 [id number] Ambulatory [facility] ing:EN Repository 08/09/2018 [id number] Ambulatory [facility] ing:MTLAB Repository 08/08/2018 [id number] Ambulatory BMSBuilding:B Gopal MS.[facility] Repository 07/25/2018/07/25/19 [id number] Ambulatory BMSBuilding:B Gopal 19 MS.[facility] Repository 07/24/2018/07/24/19 [id number] Emergency [address] Repository 07/19/2018/07/19/19 [id number] Emergency [address] Repository 07/17/2018/07/17/20 [id number] Emergency [address] Repository 07/14/2018/07/14/20 [id number] Ambulatory BMSBuilding:B Lyerly 18 MS.[facility] Repository 07/05/2018/07/05/20 [id number] Emergency [address] ing:ED Repository 07/05/2018/07/05/20 [id number] Ambulatory [address] ing:ENRoom: Repository AC-TBA 06/26/2018/06/26/20 [id number] Ambulatory BMSBuilding:B Lyerly 18 MS.[facility] Repository 06/22/2018/06/22/20 [id number] Ambulatory BMSBuilding:B Gopal 18 MS.[facility] Repository 06/15/2018 [id number] [facility] ing:OPBI Repository 06/01/2018/06/05/20 [id number] Ambulatory [address] Repository 06/01/[id number] [facility] Repository 06/01/2018 [id number] Ambulatory BMSBuilding:B Gopal MS.[facility] Repository 05/24/2018 [id number] Ambulatory [facility] ing:MRI Repository 05/22/2018/05/22/20 [id number] Ambulatory BMSBuilding:B Lyerly 18 MS.[facility] Repository 05/04/2018/05/04/20 [id number] Ambulatory BMSBuilding:B Lyerly 18 MS.[facility] Repository 05/02/2018/05/02/20 [id number] Ambulatory BMSBuilding:B Lyerly 18 MS.[facility] Repository 04/18/2018 [id number] [facility] ing:MTLAB Repository 04/18/2018/04/18/20 [id number] Ambulatory BMSBuilding:B Lyerly 18 MS.[facility] Repository 04/18/2018/04/18/20 [id number] Ambulatory BMSBuilding:B Gopal 18 MS.[facility] Repository 04/06/2018/04/06/20 [id number] Ambulatory BMSBuilding:B Lyerly 18 MS.[facility] Repository 03/21/2018/03/21/20 [id number] Ambulatory BMSBuilding:B Gopal 18 MS.[facility] Repository 03/13/2018/03/13/20 [id number] Ambulatory BMSBuilding:B Gopal 18 MS.[facility] Repository 03/06/2018/03/06/20 [id number] Ambulatory BMSBuilding:B Gopal 18 MS.[facility] Repository 02/08/2018 [id number] Ambulatory [facility] Repository 02/08/2018 [id number] Ambulatory [facility] Repository 02/08/2018 [id number] Ambulatory [facility] Repository 02/06/2018/02/07/20 [id number] Ambulatory BMSBuilding:B Lyerly 18 MS.[facility] Repository 02/01/2018/02/04/20 [id number] Ambulatory [address] Repository 01/17/2018/01/18/20 [id number] Ambulatory BMSBuilding:B Lyerly 18 MS.[facility] Repository 01/11/2018/01/20/20 [id number] Ambulatory [address] Repository 01/04/2018 [id number] Ambulatory BMSBuilding:B Gopal MS.[facility] Repository 12/22/2017/12/23/19 [id number] Ambulatory BMSBuilding:B Lyerly 18 MS.[facility] Repository 12/15/2017 [id number] Ambulatory BMSBuilding:B Gopal MS.[facility] Repository 12/08/2017/12/09/19 [id number] Ambulatory BMSBuilding:B Lyerly 18 MS.[facility] Repository 11/24/2017/11/25/19 [id number] Ambulatory BMSBuilding:B Lyerly 18 MS.[facility] Repository 11/21/2017/11/25/19 [id number] Ambulatory [address] Repository 11/21/2017/11/24/19 [id number] Ambulatory [address] Repository 11/14/2017/11/15/19 [id number] Ambulatory BMSBuilding:B Lyerly 18 MS.[facility] Repository 11/08/2017/11/09/19 [id number] Ambulatory BMSBuilding:B Gopal 18 MS.[facility] Repository 10/31/2017/11/01/19 [id number] Ambulatory [address] Repository 10/31/2017/11/02/19 [id number] Ambulatory [address] Repository 10/26/2017/10/27/19 [id number] Emergency [address] Repository 09/12/2017/09/13/19 [id number] Ambulatory [address] Repository 09/12/2017/09/12/19 [id number] Ambulatory [address] Repository 09/01/2017/09/01/19 [id number] Ambulatory [address] Repository 09/01/2017/09/01/19 [id number] Ambulatory [address] Repository PAYERS PAYERS ENCOUNTER GUARANTOR PAYER SUBSCRIBER SOURCE 08/10/2018 DEVON L Primary DEVON L Lyerly [id number] Insurance:CARESOURCEP DOBBINSDOB: [facility] ODELL white Number: [id number] [id number] Repository 17855Mtw: (330) Date:2018-07-14P O [phone] () [address]ATTN: [place] [address]VS: 08/10/2018 Secondary NOT GIVENUNK Gopal Insurance:SELF PAY [facility] Number: Effective Repository Date:2018-07-14 08/09/2018 DEVON L Primary DEVON L Gopal [id number] Insurance:CARESOURCEP DOBBINSDOB: [facility] ODELL bamethodist jennie edmundson Number: [id number], [place] [id number] Repository 24328Ifl: (330) Date:2018-08-09P O [phone] () [address]ATTN: [place] [address]ZM: 08/09/2018 Secondary NOT GIVENUNK Lyerly Insurance:SELF PAY [facility] Number: Effective Repository Date:2018-08-09 08/08/2018 DEVON L Primary DEVON L Gopla [id number] Insurance:CARESOURCEP [facility]BBINSDOB[facility] Number: [id number], [place] [id number] Repository 70334Lzk: (330) Date:2018-08-08P O [phone] () [address]ATTN: [place] [address]GR: 08/08/2018 Secondary NOT GIVENUNK Gopal Insurance:SELF PAY [facility] Number: Effective Repository Date:2018-08-08 07/25/2018 DEVON L Primary DEVON L Lyerly [id number] Insurance:CARESOURCEP DOBBINSDOB: [facility] ODELL white Number: [id number], [place] [id number] Repository 81378Mdg: (330) Date:2018-05-04P O [phone] () [address]ATTN: [place] [address]KO: 07/25/2018 Secondary NOT GIVENUNK Lyerly Insurance:SELF PAY [facility] Number: Effective Repository Date:2018-07-13 07/14/2018 DEVON L Primary DEVON L Lyerly [id number] Insurance:CARESOURCEP DOBBINSDOB: [facility] ODELL olmethodist jennie edmundson Number: [id number], [place] [id number] Repository 76013Wxr: (330) Date:2018-07-06P O [phone] () [address]ATTN: [place] [address]LI: 07/14/2018 Secondary NOT GIVENUNK Gopal Insurance:SELF PAY [facility] Number: Effective Repository Date:2018-07-12 07/05/2018 DEVON L Primary DEVON L Gopal [id number] Insurance:CARESOURCEP DOBBINSDOB: [facility] ODELL mejiaruchi Number: [id number], [place] [id number] Repository 01480Eit: (330) Date:2018-07-05P O [phone] () [address]ATTN: [place] [address]ZD: 07/05/2018 Secondary NOT GIVENUNK Gopal Insurance:SELF PAY [facility] Number: Effective Repository Date:2018-07-05 07/05/2018 DEVON L Primary DEVON L Lyerly [id number] Insurance:CARESOURCEP DOBBINSDOB: [facility] ODELL mejiamethodist jennie edmundson Number: [id number], [place] [id number] Repository 66943Hqy: (330) Date:2018-06-26P O [phone] () [address]ATTN: [place] [address]YK: 07/05/2018 Secondary NOT GIVENUNK Lyerly Insurance:SELF PAY [facility] Number: Effective Repository Date:2018-06-26 06/26/2018 DEVON L Primary DEVON L Lyerly [id number] Insurance:CARESOURCEP DOBBINSDOB: [facility] ODELL olicy Number: [id number], [place] [id number] Repository 54782Vgh: (330) Date:2018-06-22P O [phone] () [address]ATTN: [place] [address]HN: 06/26/2018 Secondary NOT GIVENUNK Lyerly Insurance:SELF PAY [facility] Number: Effective Repository Date:2018-06-23 06/22/2018 DEVON L Primary DEVON L Lyerly [id number] Insurance:CARESOURCEP DOBBINSDOB: [facility] ODELL olic Number: [id number], [place] [id number] Repository 17512Moc: (330) Date:2018-06-15P O [phone] () [address]ATTN: [place] [address]OD: 06/22/2018 Secondary NOT GIVENUNK Gopal Insurance:SELF PAY [facility] Number: Effective Repository Date:2018-06-21 06/15/2018 DEVON L Primary DEVON L Lyerly [id number] Insurance:CARESOURCEP DOBBINSDOB: [facility] ODELL olic Number: [id number], [place] [id number] Repository 72314Ngk: (330) Date:2018-05-04P O [phone] () [address]ATTN: [facility]S [facility] [place] [address]GU: 06/15/2018 Secondary NOT GIVENUNK Lyerly Insurance:SELF PAY [facility] Number: Effective Repository Date:2018-05-04 06/01/2018 DEVON L Primary DEVON L Gopal [id number] Insurance:CARESOURCEP DOBBINSDOB: [facility] ODELL white Number: [id number], [place] [id number] Repository 95022Agt: (330) Date:2018-06-01P O [phone] () [address]ATTN: [place] [address]PA: 06/01/2018 Secondary NOT GIVENUNK Lyerly Insurance:SELF PAY [facility] Number: Effective Repository Date:2018-06-01 05/24/2018 DEVON L Primary DEVON L Gopal [id number] Insurance:CARESOURCEP DOBBINSDOB: [facility] ODELL mejiamethodist jennie edmundson Number: [id number], [place] [id number] Repository 16076Rxg: (330) Date:2018-05-04P O [phone] () [address]ATTN: [place] [address]ZD: 05/24/2018 Secondary NOT GIVENUNK Lyerly Insurance:SELF PAY [facility] Number: Effective Repository Date:2018-05-04 05/22/2018 DEVON L Primary DEVON L Lyerly [id number] Insurance:CARESOURCEP [facility]BBINSDOB: [facility] Number: [id number], [place] [id number] Repository 62000Rbf: (330) Date:2018-05-02P O [phone] () [address]ATTN: [place] [address]DT: 05/22/2018 Secondary NOT GIVENUNK Lyerly Insurance:SELF PAY [facility] Number: Effective Repository Date:2018-05-22 05/04/2018 DEVON L Primary DEVON L Gopal [id number] Insurance:CARESOURCEP [facility]BBINSDOB: [facility] Number: [id number], [place] [id number] Repository 15711Lhz: (330) Date:2018-04-18P O [phone] (HP) [address]ATTN: [place] [address]PF: 05/04/2018 Secondary NOT GIVENUNK Gopal Insurance:SELF PAY [facility] Number: Effective Repository Date:2018-05-04 05/02/2018 DEVON L Primary DEVON L Lyerly [id number] Insurance:CARESOURCEP DOBBINSDOB: [facility] mejiamethodist jennie edmundson Number: [id number], [place] [id number] Repository 73842Yyz: (330) Date:2018-04-06 O [phone] () [address]ATTN: [place] [address]CV: 05/02/2018 Secondary NOT GIVENUNK Gopal Insurance:SELF PAY [facility] Number: Effective Repository Date:2018-05-02 04/18/2018 DEVON L Primary DEVON L Gopal [id number] Insurance:CARESOURCEP DOBBINSDOB: [facility] ODELL bamethodist jennie edmundson Number: [id number], [place] [id number] Repository 88[address]Cok: (330) Date:2018-04-18 O [phone] () [address]ATTN: [place] [address]WB: 04/18/2018 Secondary NOT GIVENUNK Lyerly Insurance:SELF PAY [facility] Number: Effective Repository Date:2018-04-18 04/18/2018 DEVON L Primary DEVON L Gopal [id number] Insurance:CARESOURCEP DOBBINSDOB: [facility] ODELL mejiamethodist jennie edmundson Number: [id number], [place] [id number] Repository 37502Xoh: (330) Date:2018-02-21P O [phone] (HP) [address]ATTN: [place] [address]OX: 04/18/2018 Secondary NOT GIVENUNK Gopal Insurance:SELF PAY [facility] Number: Effective Repository Date:2018-02-21 04/18/2018 DEVON L Primary DEVON L Lyerly [id number] Insurance:CARESOURCEP DOBBINSDOB: [facility] cindy Number: [id number], [place] [id number] Repository 82283Hxb: (330) Date:2018-03-06P O [phone] () [address]ATTN: [place] [address]XZ: 04/18/2018 Secondary NOT GIVENUNK Lyerly Insurance:SELF PAY [facility] Number: Effective Repository Date:2018-04-18 04/06/2018 DEVON L Primary DEVON L Gopal [id number] Insurance:CARESOURCEP [facility]BBINSDOB: [facility] Number: [id number], [place] [id number] Repository 46642Ukg: (330) Date:2018-03-06P O [phone] () [address]ATTN: [place] [address]TA: 04/06/2018 Secondary NOT GIVENUNK Lyerly Insurance:SELF PAY [facility] Number: Effective Repository Date:2018-04-06 03/21/2018 DEVON L Primary DEVON L Gopal [id number] Insurance:CARESOURCEP DOBBINSDOB: [facility] ODELL [facility] Number: [id number], [place] [id number] Repository 93[address]Lpq: (330) Date:2018-02-06P O [phone] () [address]ATTN: [place] [address]WQ: 03/21/2018 Secondary NOT GIVENUNK Lyerly Insurance:SELF PAY [facility] Number: Effective Repository Date:2018-03-21 03/13/2018 DEVON L Primary DEVON L Gopal [id number] Insurance:CARESOURCEP DOBBINSDOB: [facility] ODELL olicy Number: [id number], [place] [id number] Repository 46691Xox: (330) Date:2018-03-13P O [phone] () [address]ATTN: [place] [address]NA: 03/13/2018 Secondary NOT GIVENUNK Lyerly Insurance:SELF PAY [facility] Number: Effective Repository Date:2018-03-13 03/06/2018 DEVON L Primary DEVON L Lyerly [id number] Insurance:CARESOURCEP DOBBINSDOB: [facility] Number: [id number], [place] [id number] Repository 64464Lej: (330) Date:2018-02-27P O [phone] () [address]ATTN: [place] [address]NO: 03/06/2018 Secondary NOT GIVENUNK Gopal Insurance:SELF PAY [facility] Number: Effective Repository Date:2018-03-06 02/06/2018 DEVON L Primary NOT GIVENUNK Gopal [id number] Insurance:SELF [place] Number: Effective Repository [phone]: (330) Date:2018-02-06 [phone] () 01/17/2018 DEVON L Primary NOT GIVENUNK Lyerly [id number] Insurance[place]SELF [place] Number: Effective Repository [phone]: (330) Date:2018-01-17 [phone] () 01/04/2018 DEVON L Primary NOT GIVENUNK Gopal [id number] Insurance[place]SELF [place] Number: Effective Repository [phone]: (330) Date:2017-12-28 [phone] () 12/22/2017 DEVON L Primary NOT GIVENUNK Lyerly [id number] Insurance[place]SELF [place] Number: Effective Repository [phone]: (330) Date:2017-12-30 [phone] () 12/15/2017 DEVON L Primary NOT GIVENUNK Gopal [id number] Insurance:SELF PAY [facility] Number: Effective Repository [phone]: (330) Date:2017-12-09 [phone] () 12/08/2017 DEVON L Primary NOT GIVENUNK Lyerly [id number] Insurance:SELF PA[place] [facility] Number: Effective Repository [phone]: (330) Date:2017-12-08 [phone] () 11/24/2017 DEVON L Primary NOT GIVENUNK Lyerly [id number] Insurance:SELF PA[place] [facility] Number: Effective Repository [phone]: (330) Date:2017-11-24 [phone] () 11/14/2017 DEVON L Primary NOT GIVENUNK Lyerly [id number] Insurance:SELF PAY [facility] Number: Effective Repository [phone]: (330) Date:2017-11-14 [phone] () 11/08/2017 DEVON L Primary NOT GIVENUNK Lyerly [id number] Insurance:SELF PA[place] [facility] Number: Effective Repository 19888Zwq: (330) Date:2017-11-01 [phone] ()
== END 2018-07-05 15:17 | disposition home or self-care (01) ==
PROVIDERS: Emergency Provider Emergency Medicine; Family Provider Family Medicine; PCP Family Medicine
DX: R10.30 Lower abdominal pain, unspecified (principal); K29.70 Gastritis, unspecified, without bleeding; D12.4 Benign neoplasm of descending colon; D12.5 Benign neoplasm of sigmoid colon; Z98.890 Other specified postprocedural states; M19.90 Unspecified osteoarthritis, unspecified site; K21.9 Gastro-esophageal reflux disease without esophagitis; E78.00 Pure hypercholesterolemia, unspecified; G47.30 Sleep apnea, unspecified; F17.210 Nicotine dependence, cigarettes, uncomplicated; F41.9 Anxiety disorder, unspecified; J44.9 Chronic obstructive pulmonary disease, unspecified; J45.909 Unspecified asthma, uncomplicated; K57.30 Diverticulosis of large intestine without perforation or abscess without bleeding; Z86.73 Personal history of transient ischemic attack (TIA), and cerebral infarction without residual deficits; Z85.89 Personal history of malignant neoplasm of other organs and systems; Z79.899 Other long term (current) drug therapy
CPT/HCPCS: 43239; 45380; 74177; 80048; 81001; 85025; 88305; 88342; 99283; J7120; Q9967; A4216

== ENCOUNTER → 2018-08-09 12:23 | Outpatient (CLI) | payer MEDICAID, SELFPAY ==
[2018-07-25 16:08] VITALS: BMI 38.9
[2018-08-09 14:47] LABS: Cholesterol 275 mg/dL (200); High Density Lipoprotein 45 mg/dL; Triglycerides 103 mg/dL; Very Low Density Lipoprotein 21 mg/dL (5-40)
--- OUTSIDE RECORDS SUMMARY | 2018-10-11 10:36 | XMS RPT_ITS ---
:1960 Author Organization OHIP Support Name Relationship Address Phone DALI HUYNH Unavailable [address] + [place] [address] JOEL BARAHONA Unavailable [address] + [place] [address] UE Unavailable Unavailable Unavailable DALI HUYNH Unavailable [address] + [facility] [place] [address] JOEL BARAHONA Unavailable [address] + [place] [address] UE Unavailable Unavailable Unavailable DALI HUYNH Unavailable [address] + [facility] [place] [address] DOJOEL VALDEZ Unavailable [address] + [place] [address] UE Unavailable Unavailable Unavailable DALI HUYNH Unavailable [address] + [facility] [place] [address] JOEL BARAHONA Unavailable [address] + [place] [address] UE Unavailable Unavailable Unavailable DALI HUYNH Unavailable [address] + [place] [address] JOEL BARAHONA Unavailable [address] + [place] [address] UE Unavailable Unavailable Unavailable DALI HUYNH Unavailable [address] + [facility] [place] [address] JOEL BARAHONA Unavailable [address] + [place] [address] UE Unavailable Unavailable Unavailable DALI HUYNH Unavailable [address] + [place] [address] JOEL BARAHONA Unavailable [address] + [place] [address] UE Unavailable Unavailable Unavailable DALI HUYNH Unavailable [address] + [place] [address] DOBBINS, JOEL Unavailable [address] + [place] [address] UE Unavailable Unavailable Unavailable DALI HUYNH Unavailable [address] + [place] [address] DOBBINS, JOEL Unavailable [address] + [place] [address] UE Unavailable Unavailable Unavailable DALI HUYNH Unavailable [address] + [place] [address] DOBBINS, JOEL Unavailable [address] + [place] [address] UE Unavailable Unavailable Unavailable DOBBINS, JOEL Unavailable [address] + [place] [address] UE Unavailable Unavailable Unavailable DOBBINS, JOEL Unavailable [address] + [place] [address] UE Unavailable Unavailable Unavailable DOBBINS, JOEL Unavailable [address] + [place] [address] UE Unavailable Unavailable Unavailable DOBBINS, JOEL Unavailable [address] + [place] [address] UE Unavailable Unavailable Unavailable DOBBINS, JOEL Unavailable [address] + [place] [address] UE Unavailable Unavailable Unavailable DOBBINS, JOEL Unavailable [address] + [place] [address] UE Unavailable Unavailable Unavailable DOBBINS, JOEL Unavailable [address] + [place] [address] UE Unavailable Unavailable Unavailable DOBBINS, JOEL Unavailable [address] + [place] [address] UE Unavailable Unavailable Unavailable DOBBINS, JOEL Unavailable [address] + [place] [address] UE Unavailable Unavailable Unavailable DOBBINS, JOEL Unavailable [address] + [place] [address] UE Unavailable Unavailable Unavailable DOBBINS JOEL Unavailable [address] + [place] [address] UE Unavailable Unavailable Unavailable DOBBINS, JOEL Unavailable [address] + [place] [address] UE Unavailable Unavailable Unavailable DOBBINS, JOEL Unavailable [address] + [place] [address] UE Unavailable Unavailable Unavailable DOBBINS, JOEL Unavailable [address] + [place] [address] UE Unavailable Unavailable Unavailable DOBBINS, JOEL Unavailable [address] + [place] [address] UE Unavailable Unavailable Unavailable DOBBINS, JOEL Unavailable [address] + [place] [address] UE Unavailable Unavailable Unavailable DOBBINS JOEL Unavailable [address] + [place] [address] UE Unavailable Unavailable Unavailable DOBBINS JOEL Unavailable [address] + [place] [address] UE Unavailable Unavailable Unavailable DOBBINS JOEL Unavailable [address] + [place] [address] UE Unavailable Unavailable Unavailable DOBBINS JOEL Unavailable [address] + [place] [address] UE Unavailable Unavailable Unavailable DOBBINS JOEL Unavailable [address] + [place] [address] UE Unavailable Unavailable Unavailable Care Team Providers [...] 07/25/2018 Unknown M54.10 - Kolby Alaniz Active [facility] Radiculopathy, site Community unspecified / Hospital M54.10(ICD-10) Repository 07/24/2018 Active Contusion of right CONKLE, SHELLI Active [facility] knee, initial [facility] Other encounter / [place] S80.01XA(ICD-10) Repository 07/24/2018 Active Abrasion, right CONKLE, SHELLI Active [facility] knee, initial [facility] Other encounter / [place] S80.211A(ICD-10) Repository 07/19/2018 Active Headache / MCQUOWN, JENNY Active [facility] R51(ICD-10) [facility] Other [place] Repository 07/17/2018 Active Unspecified injury BUDZIAK, Active [facility] of head, initial [facility] Other encounter / [facility] S09.90XA(ICD-10) Repository 07/17/2018 Active Acute frontal BUDZIAK, Active [facility] sinusitis, [facility] Other unspecified / [facility] J01.10(ICD-10) Repository 06/26/2018 Unknown K62.5 - Hemorrhage DannielleJaun Active [facility] of anus and rectum / Community K62.5(ICD-10) Hospital Repository 06/26/2018 Unknown R10.13 - Epigastric [place] Active [facility] pain / Community R10.13(ICD-10) Hospital Repository 06/26/2018 Unknown R13.10 - Dysphagia, [place] Active [facility] unspecified / Community R13.10(ICD-10) Hospital Repository 06/23/2018 Unknown M99.03 - Segmental Dossie, Sultana Active [facility] and somatic [facility] Community dysfunction of Hospital lumbar region / Repository M99.03(ICD-10) 06/23/2018 Unknown M99.05 - Segmental Dossie, Sultana Active [facility] and somatic [facility] Community dysfunction of Hospital pelvic region / Repository M99.05(ICD-10) 06/23/2018 Unknown M99.02 - Segmental Dossie, Sultana Active [facility] and somatic [facility] Community dysfunction of Hospital thoracic region / Repository M99.02(ICD-10) 06/23/2018 Unknown M99.01 - Segmental Dossie, Sultana Active [facility] and somatic [facility] 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5 - Low back Dossie, Sultana Active [facility] pain / M54.5(ICD-10) [facility] Repository 03/07/2018 Unknown M54.9 - Dorsalgia, Dossie, Sultana Active [facility] unspecified / [facility] Community M54.9(ICD-10) Hospital Repository 04/28/2015 Active Obstructive sleep NA Active [facility] apnea (adult) [facility] Other (pediatric) / [place] G47.33(ICD-10) Repository 02/08/2018 Active Chest pain, NA Active [facility] unspecified / Clinic Other R07.9(ICD-10) [place] Repository 02/08/2018 Active Shortness of breath NA Active [facility] / R06.02(ICD-10) Clinic Other [place] Repository 02/08/2018 Active Panlobular emphysema NA Active [facility] / J43.1(ICD-10) Clinic Other [place] Repository 11/21/2017 Active Chronic obstructive NA Active [facility] pulmonary disease, Clinic Main unspecified / [place] J44.9(ICD-10) Repository 10/19/2011 Active 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, Clinic Main lumbar region / [place] M51.36(ICD-10) Repository 10/31/2017 Active Dorsalgia, NA Active [facility] unspecified / Clinic Main M54.9(ICD-10) [place] Repository 10/31/2017 Active Other chronic pain / NA Active [facility] G89.29(ICD-10) Clinic Main [place] Repository 10/26/2017 Active Paresthesia of skin NA Active [facility] / R20.2(ICD-10) Clinic Other [place] Repository 09/12/2017 Active Pain in left hip / NA Active [facility] M25.552(ICD-10) Clinic Other [place] Repository 09/15/2011 Active Hyperlipidemia, NA Active [facility] unspecified / Clinic Main E78.5(ICD-10) [place] Repository PROCEDURES PROCEDURES No Procedure Records FoundRESULTS RESULTS LIPID PROFILE Collected: 08/09/2018 Status: F Source: [place] 12:29 PM [facility] REPOSITORY TYPE CODE TESTS RESULT OUT [...] VLDL 21 Performed By: #### L500.4100 #### [facility] [address] [place], [address] INTERNAL MEDICINE Observed: 07/25/2018 Status: F Source: [place] OFFICE VISIT 5:16 PM [facility] REPOSITORY [facility] [address] [place] [address] [place] [address] OFFICE VISIT Date of Service: 07/25/18 MR#: [id number] Acct: [id number] Name: DEVON BARAHONA Rep #: [id number] : 1960 Provider: Kolby Alaniz DO Age/Sex: 57/F Location: [facility] Status: Signed Intake Vital Signs07/25/18 Body Mass [...] BID #180 cap 04/27/18 [Rx Confirmed 07/25/18] tzvlhu-oqtptars-otcrdsp 3,000-9,500-15,000 unit capsule,delayed releas 12.58461 cap PO TID #90 cap 05/04/18 [Rx Confirmed 07/25/18] cetirizine 10 mg capsule 10 mg PO DAILY #90 cap 06/01/18 [Rx Confirmed 07/25/18] glucosamine HCl 1,500 mg tablet 1,500 mg PO BID #180 tab 06/01/18 [Rx Confirmed 07/25/18] Co Q10 200 [Co Q-10] 200 mg PO DAILY 07/04/18 [History Confirmed 07/25/18] Salmeterol [Serevent Diskus] 1 puff INHALATION Q12 07/04/18 [History Confirmed 07/25/18] Tiotropium [place] [Spiriva Respimat] 1 puff IH BID 07/04/18 [...] but I told her she is only fpc through her medication so we will give [...] esophagitis Contusion of right knee S80.01XA 07/25/18 2356 <Electronically signed by Kolby Alaniz DO> Date Kolby Alaniz DO Cosigner Signature: Date (if applicable) CC: ED PROV NOTE Observed: 07/24/2018 Status: COMPLETED Source: [place] 6:29 PM [facility] [place] REPOSITORY O ID: [id number] Author: Shelli Ace DO Service: Emergency Medicine [...] Capsulotomy - EGD 05/24/14 - EGD W/O [facility] SPECIMEN W/BX 04/17/10 - EXCISION MALIGNANT LESIONS,VUL [...] - SLING OPER STRES INCONTINENCE 11/26/10, 04/2011 [facility] main campus surgery FAMILY HISTORY Problem [...] ED NOTE Observed: 07/24/2018 Status: COMPLETED Source: [place] 6:25 PM [facility] [place] REPOSITORY [facility] ID: [id number] Author: Florencia ShepardRn) CÉSAR Allen Service: Emergency [...] ED NOTE Observed: 07/24/2018 Status: COMPLETED Source: [place] 5:58 PM [facility] REPOSITORY [facility] ID: [id number] Author: Florencia ShepardRn) CÉSAR Allen Service: Emergency Medicine Author Type: Registered Nurse Type: ED Notes Filed: 07/24/2018 5:58 PM Note Text: Patient informed: the name of medication, why we are giving it, possible side effects, what they may expect to feel, and was offered a chance to ask questions, prior to the administration of Bacitracin. KNEE INJURY 4V Observed: 07/24/2018 Status: F Source: [facility] AP/LAT/OBLS RIGHT 5:20 PM HEALTH SYSTEM REPOSITORY Performed at [facility] APPROVED BY: oKlby Dixon MD EXAM TITLE: KNEE INJURY 4V AP/LAT/OBLS RIGHT DATE: 07/24/2018 16:57 COMPARISON: None. CLINICAL INDICATION/HISTORY: Status post fall, right knee pain TECHNIQUE: AP, lateral and internal and external rotation views FINDINGS: No acute bony abnormality. No fracture or dislocation. No significant arthritic change. No joint effusion. IMPRESSION: Normal knee. ED NOTE Observed: 07/24/2018 Status: COMPLETED Source: [place] 5:17 PM [facility] REPOSITORY [facility] ID: [id number] Author: Nirmala ShepardRn) CÉSAR Patel Service: Emergency Medicine Author Type: Registered Nurse Type: ED Notes Filed: 07/24/2018 5:17 PM Note Text: Pt to room from radiology via cart ED NOTE Observed: 07/24/2018 Status: COMPLETED Source: [place] 4:44 PM [facility] REPOSITORY [facility] ID: [id number] Author: Nirmala ShepardRn) CÉSAR Patel Service: Emergency Medicine Author Type: Registered Nurse Type: ED Notes Filed: 07/24/2018 5:18 PM Note Text: Pt fell on deck steps, reports right knee pain. Reports left knee gave out and I went down onto my right knee. ED NOTE Observed: 07/19/2018 Status: COMPLETED Source: [place] 2:58 PM [facility] REPOSITORY [facility] ID: [id number] Author: Azeb ShepardRn) CÉSAR Hargrove Service: Emergency Medicine Author Type: Registered Nurse Type: ED Notes Filed: 07/19/2018 2:58 PM Note Text: Pt given discharge instructions, pt questions answered and pt denies any further questions at time of discharge. Pt ambulates out of dept with a steady gait. Spouse to drive pt home ED NOTE Observed: 07/19/2018 Status: COMPLETED Source: [place] 2:41 PM [facility] REPOSITORY [facility] ID: [id number] Author: Azeb ShepardRn) CÉSAR Hargrove Service: Emergency Medicine Author Type: Registered Nurse Type: ED Notes Filed: 07/19/2018 2:41 PM Note Text: Pt pain and nausea improved after medications ED NOTE Observed: 07/19/2018 Status: COMPLETED Source: [place] 2:39 PM [facility] REPOSITORY [facility] ID: [id number] Author: Azeb ShepardRn) CÉSAR Hargrove Service: Emergency Medicine Author Type: Registered Nurse Type: ED Notes Filed: 07/19/2018 2:39 PM Note Text: Pt ambulates to bathroom ED PROV NOTE Observed: 07/19/2018 Status: COMPLETED Source: [place] 2:36 PM [facility] REPOSITORY [facility] ID: [id number] Author: Jenny Patton MD Service: Emergency Medicine [...] - SLING OPER STRES INCONTINENCE 11/26/10, 04/2011 [facility] main campus surgery FAMILY HISTORY Problem [...] ED NOTE Observed: 07/19/2018 Status: COMPLETED Source: [place] 2:10 PM [facility] REPOSITORY [facility] ID: [id number] Author: Azeb (Rn) CÉSAR Hargrove Service: Emergency Medicine Author Type: Registered Nurse Type: ED Notes Filed: 07/19/2018 2:10 PM Note Text: Patient informed: the name of medication, why we are giving it, possible side effects, what they may expect to feel, and was offered a chance to ask questions, prior to the administration of toradol, reglan ED NOTE Observed: 07/19/2018 Status: COMPLETED Source: [place] 1:26 PM [facility] REPOSITORY [facility] ID: [id number] Author: Otilia Valencia (Rn) CÉSAR Pereira Service: (none) Author Type: Registered Nurse Type: ED Notes Filed: 07/19/2018 1:28 PM Note Text: Steady gait to ED bed 10 C/O diarrhea, headache and SOB since Tuesday States was seen for sinus infection on Tuesday and started having bad side effects from levaquin 30 minutes after first dose ED PROV NOTE Observed: 07/17/2018 Status: COMPLETED Source: [place] 4:53 PM [facility] REPOSITORY [facility] ID: [id number] Author: Raciel Gamez MD Service: Emergency Medicine [...] - SLING OPER STRES INCONTINENCE 11/26/10, 04/2011 [facility] FAMILY HISTORY Problem Relation Age of [...] W/O CONTRAST Observed: 07/17/2018 Status: F Source: [facility] 3:56 PM HEALTH SYSTEM REPOSITORY Performed at [facility] APPROVED BY: Lou Umaña MD EXAMINATION: CT [...] ED NOTE Observed: 07/17/2018 Status: COMPLETED Source: [place] 3:54 PM [facility] REPOSITORY [facility] ID: [id number] Author: Evens Higuera RN Service: Emergency Medicine Author Type: Registered Nurse Type: ED Notes Filed: 07/17/2018 3:54 PM Note Text: Patient returned to the Emergency Department. ED NOTE Observed: 07/17/2018 Status: COMPLETED Source: [place] 3:47 PM [facility] REPOSITORY [facility] ID: [id number] Author: Evens Higuera RN Service: Emergency Medicine Author Type: Registered Nurse Type: ED Notes Filed: 07/17/2018 3:47 PM Note Text: Patient transported to [place] with Tech. ED NOTE Observed: 07/17/2018 Status: COMPLETED Source: [place] 3:31 PM [facility] REPOSITORY [facility] ID: [id number] Author: Evens Higuera RN Service: Emergency Medicine Author Type: Registered Nurse Type: ED Notes Filed: 07/17/2018 3:32 PM Note Text: .Pt advised on name of medication, why the medication was being administered, possible side effects, and how medication might make them feel once administered. Name of medication tylenol, benadryl, and zofran at 1530 hrs. ED NOTE Observed: 07/17/2018 Status: COMPLETED Source: [place] 2:46 PM [facility] REPOSITORY [facility] ID: [id number] Author: Eliseo Palomares RN Service: Emergency Medicine Author Type: Registered Nurse Type: ED Notes Filed: 07/17/2018 2:47 PM Note Text: Headache that got worse after hitting head getting into car SURGERY VISIT REPORT Observed: 07/17/2018 Status: F Source: [place] 1:11 PM [facility] REPOSITORY [facility] [address] [place] [address] OFFICE VISIT Date of Service: 07/14/18 MR#: [id number] Acct: [id number] Name: DEVON BARAHONA Rep #: [id number] : 1960 Provider: Jaun Spicer MD Age/Sex: 57/F Location: [facility] Status: Signed Intake Intake Visit Reasons: 1 WK F/U UPPER LOWER SCOPE 07/05 Chief Complaint: blood in stool, hx colon cancer Manager Rental Required: No Is patient in pain?: No [...] BID #180 cap 04/27/18 [Rx Confirmed 07/14/18] oafvrs-naxbgapq-yvyxubr 3,000-9,500-15,000 unit capsule,delayed releas 12.49145 cap PO TID #90 cap 05/04/18 [Rx Confirmed 07/14/18] cetirizine 10 mg capsule 10 mg PO DAILY #90 cap 06/01/18 [Rx Confirmed 07/14/18] glucosamine HCl 1,500 mg tablet 1,500 mg PO BID #180 tab 06/01/18 [Rx Confirmed 07/14/18] Co Q10 200 [Co Q-10] 200 mg PO DAILY 07/04/18 [History Confirmed 07/14/18] Salmeterol [Serevent Diskus] 1 puff INHALATION Q12 07/04/18 [History Confirmed 07/14/18] Tiotropium [place] [Spiriva Respimat] 1 puff IH BID 07/04/18 [History Confirmed 07/14/18] lorazepam 1 mg tablet 1 mg PO BID #60 tab 07/05/18 [Rx Confirmed 07/14/18] Subjective Details: Patient is status post an upper and lower endoscopy completed [facility] on 07/05/2018. Biopsies of the stomach and [...] 07/05/2018 Status: F Source: [place] 4:47 PM [facility] REPOSITORY [facility] Medical Records Department [address] [place] [address] Discharge Instruction 07/05/18 1458 MR#: [id number] Acct: [id number] Name: DEVON BARAHONA Rep #: [id number] : 1960 57 From: Osmin Moore MD [...] your Primary Care Provider. Call [facility] ([phone]) or report to the closest Emergency Room. Call 911 if necessary. 07/05/18 1647 <Electronically signed by Osmin Moore MD> Date Osmin Moore MD Cosigner Signature (If Indicated): Date CC: Kolby Alaniz DO EMERGENCY DEPARTMENT Observed: 07/05/2018 Status: F Source: [place] SUMMARY 4:47 PM [facility] REPOSITORY [facility] Medical Records Department [address] [place] [address] Emergency Department Summary 07/05/18 1241 MR#: [id number] Acct: [id number] Name: DEVON BARAHONA Rep #: [id number] : 1960 57 From: Osmin Moore MD [...] post colonoscopy. This note was generated with Peak 10 dictation software. It may contain incorrect words, [...] problems, contact your Primary Care Provider. Call [facility] ([phone]) or report to the closest Emergency Room. Call 911 if necessary. 07/05/18 4578 <Electronically signed by Osmin Moore MD> Date Osmin Magana Signature (If Indicated): Date CC: Kolby Alaniz, URINALYSIS, COMPLETE Collected: 07/05/2018 Status: F Source: [place] 2:20 PM [facility] REPOSITORY Order Comment: Order Date: 07/05/18 Has [...] URINE SEEN Performed By: #### L400.0001 #### [facility] [address] [place], [address] CBC W/DIFF, AUTOMATED Collected: 07/05/2018 Status: F [...] Lymph 1.85 Performed By: #### L100.0100 #### [facility] [address] [place], [place], [address] BASIC METABOLIC Collected: 07/05/2018 Status: F Source: [place] PROFILE (BMP) 1:24 PM [facility] REPOSITORY TYPE CODE TESTS RESULT OUT [...] GAP 7 Performed By: #### L500.2500 #### [facility] [address] [facility] [place], [address] ABDOMEN/PELVIS W IV CONT Observed: 07/05/2018 Status: F Source: [facility] 12:38 PM [facility] REPOSITORY [facility] Imaging Services [address] [place], [place] [address] [address] Abdomen/Pelvis W IV Cont ONLY MR#: [id number] Acct: [id number] Name: DEVON BARAHONA Rep #: [id number] : 1960 F 57 From: Colt Mckeon DO PCP: Kolby Alaniz DO Status: REG ER Study: Abdomen/Pelvis W IV Cont ONLY Date of Exam: 07/05/18 Exam# [id number] Ordering Dr: Osmin Moore MD STUDY: CT [...] CC: Kolby Alaniz DO; Osmin Moore MD Probation And Patrol Agent: Signed OPERATIVE REPORT - Observed: 07/05/2018 Status: F Source: [place] [facility] 10:41 AM [facility] REPOSITORY [facility] Medical Records Department [address] [place] [address] Operative Report - Endoscopy MR#: [id number] Acct: [id number] Name: DEVON BARAHNOA Rep #: [id number] : 1960 57 From: Jaun Spicer MD PCP: Kolby Alaniz, DO Status: REG SDC Patient Name: Devon Barahona Procedure Date: 07/05/2018 10:16 AM Date of : 1960 Age: 57 Procedure: Colonoscopy Indications: Rectal bleeding Providers: Jaun Spicer MD Referring MD: Kolby Alanzi Medicines: See the Anesthesia note for documentation [...] 1 week. Procedure Code(s): --- Professional --- 27212, Colonoscopy, flexible; with removal of tumor(s), polyp(s), or other lesion(s) by snare technique 61949, 59, Colonoscopy, flexible; with biopsy, single or multiple Diagnosis Code(s): --- Professional --- D12.4, Benign neoplasm of descending colon D12.3, Benign neoplasm of transverse colon (hepatic flexure or splenic flexure) K62.5, Hemorrhage of anus and rectum K57.30, Diverticulosis of large intestine without perforation or abscess without bleeding CPT copyright 2017 [employer] [place] [employer]. All rights reserved. The codes documented in this report are preliminary and upon power system dispatcher review may be revised to meet current compliance requirements. MD Jaun Alvarez MD 07/05/2018 10:40:54 AM This report has been signed electronically. Number of Addenda: 0 Note Initiated On: 07/05/2018 10:16 AM 07/05/18 1041 Date Jaun Spicer MD Cosigner Signature: Date (if indicated) CC: Jaun Spicer MD; Kolby Alaniz DO Date Dictated: 07/05/18 1016 Date Transcribed: Probation And Patrol Agent: ERIN Signed OPERATIVE REPORT - Observed: 07/05/2018 Status: F Source: [facility] 10:36 AM [facility] REPOSITORY [facility] Medical Records Department [address] [place] [address] Operative Report - Endoscopy MR#: [id number] Acct: [id number] Name: DEVON BARAHONA Rep #: [id number] : 1960 57 From: Jaun Spicer MD PCP: Kolby Alaniz DO Status: REG [facility] Patient Name: Devon Barahona Procedure Date: 07/05/2018 [...] present medications. Procedure Code(s): --- Professional --- 63019, Esophagogastroduodenoscopy, flexible, transoral; with biopsy, single or multiple Diagnosis Code(s): --- Professional --- K22.8, Other specified diseases of esophagus R13.10, Dysphagia, unspecified R10.13, Epigastric pain R14.0, Abdominal distension (gaseous) CPT copyright 2017 [employer] [place] [employer]. All rights reserved. The codes documented in this report are preliminary and upon power system dispatcher review may be revised to meet current compliance requirements. MD Jaun Alvarez MD 07/05/2018 10:36:15 AM This report has been signed electronically. Number of Addenda: 0 Note Initiated On: 07/05/2018 10:02 AM 07/05/18 1036 Date Jaun Spicer MD Cosigner Signature: Date (if indicated) CC: Jaun Spicer MD; Kolby Alaniz DO Date Dictated: 07/05/18 1002 Date Transcribed: Probation And Patrol Agent: DP Signed EGD ([facility] SITE) Observed: 07/05/2018 Status: F Source: [place] 10:15 AM [facility] REPOSIT[facility] Patient: DEVON BARAHONA : 1960 (57/F) Acct Num: [id number] Phys: Dannielle GARVEY,Jaun Unit Num: [id number] Loc: EN Specimen: [id number] Received: 07/05/18 - 4 Spec Type: EGD BIOPSY TISSUES 1 TISSUES: A. Gastric mucous membrane B. Duodenum, NOS C. COLON BIOPSY D. Descending colon E. Sigmoid colon biopsy COMMENT A. The results of immunohistochemistry for Helicobacter pylori will be reported separately ([id number]). GROSS DESCRIPTION A - Received in fixative [...] one cassette. / MAXIMO:juju 07/05/18 TC:1 CPT: 39145 x5 HEADER OPERATION: Colonoscopy, EGD ([facility] [place] [facility]) PRE-OP DIAGNOSIS: Rectal bleeding, epigastric pain, esophageal [...] on file> Performed By: #### JEFF #### [facility] [address] [place] [address]. [place], [place], [id number] IMMUNOHISTOCHEMISTRY Observed: 07/05/2018 Status: F Source: [place] 10:15 AM [facility] REPOSIT[facility] Patient: DEVON BARAHONA : 1960 (57/F) Acct Num: [id number] Phys: Dannielle GARVEY,Jaun Unit Num: [id number] Loc: EN Specimen: [id number] Received: 07/05/181336 Spec Type: IMMUNO TISSUES 1 TISSUES: A. Stomach, NOS SPECIMEN INFORMATION: Tissue Source: A - Antrum biopsy Clinical Info: Rectal bleeding, epigastric pain, esophageal dysphagia Specimen Number: [id number] CPT code: 39205 METHODOLOGY: Deparaffinized sections of prefer/formalin-fixed tissue or [...] developed and their performance characteristics determined by [facility]. They may not have been cleared or approved by the U.S. Food and Drug Administration. The FDA has determined that such clearance or approval is not necessary. INTERPRETATION: A. Antrum, biopsy: Negative for Helicobacter pylori organisms. SJ:juju 07/06/18 PHYSICIAN AND INSTITUTION [address] [address] Signed Mario Sen MD 07/06/18 <signature on file> Performed By: #### PIMM #### [facility] [address] [place] [address]. [place], [place], [id number] SURGERY VISIT REPORT Observed: 06/27/2018 Status: F Source: [place] 7:31 AM [facility] REPOSITORY [facility] [address] [place] [address] OFFICE VISIT Date of Service: 06/26/18 MR#: [id number] Acct: [id number] Name: DEVON BARAHONA Rep #: [id number] : 1960 Provider: Jaun Spicer MD Age/Sex: 57/F Location: [facility] Status: Signed Intake Vital Signs06/26/18 Body Mass Index (BMI) 37.6 06/26/18 Height 5 ft 3 in 06/26/18 Weight: 217 lb 3 oz 06/26/18 Body Mass Index (BMI) 38.5 06/26/18 Blood Pressure 145/84 H Intake Visit Reasons: Bloody Stool - Self Ref Prev Colon Cx Chief Complaint: blood in stool, hx colon cancer Manager Rental Required: No Is patient in pain?: No [...] BID #180 cap 04/27/18 [Rx Confirmed 06/26/18] uociur-anfqlumd-vfiluym 3,000-9,500-15,000 unit capsule,delayed releas 12.96249 cap PO TID #90 cap 05/04/18 [Rx [...] person, oriented to place, oriented to time [facility] Head: normocephalic, atraumatic Ears: external ears normal [...] CHIROPRACTIC REPORT Observed: 06/22/2018 Status: F Source: [place] 4:36 PM [facility] REPOSITORY [facility] [address] [place] [address] OFFICE VISIT Date of Service: 06/22/18 MR#: [id number] Acct: [id number] Name: DEVON BARAHONA Rep #: [id number] : 1960 Provider: [facility] Age/Sex: 57/F Location: [facility] Status: Signed Intake Vital Signs06/22/18 Height 5 [...] BID #180 cap 04/27/18 [Rx Confirmed 05/04/18] kctyue-mnlbgdem-qmwoepw 3,000-9,500-15,000 unit capsule,delayed releas 12.49523 cap PO TID #90 cap 05/04/18 [Rx [...] Additional Codes Procedures - Manipulation: 3-4 regions (00021) 06/22/18 1636 <Electronically signed by [facility]> Date [facility] Cosigner Signature: Date (if applicable) CC: SCREENING MAMM (CAD), Observed: 06/15/2018 Status: F Source: [place] 12:23 PM [facility] REPOSITORY [facility] Imaging Services [address] [place] [address] SCREENING MAMM (CAD), BILAT MR#: [id number] Acct: [id number] Name: DEVON BARAHONA Rep #: [id number] : 1960 F 57 From: Klaus Bergman MD PCP: Kolby Alaniz DO Status: REG CLI Study: SCREENING MAMM (CAD), BILAT Date of Exam: 06/15/18 Exam# [id number] Ordering Dr: Kolby Alaniz DO MAMMOGRAPHY - [...] delay biopsy of a clinically suspicious abnormality. [id number] Electronically Signed: Klaus Bergman MD at 14:28 EST Tel [phone], Service support , CC: Kolby Alaniz DO Probation And Patrol Agent: Signed CNPN Observed: 06/14/2018 Status: COMPLETED Source: [place] 12:00 AM [facility] REPOSITORY Telephone (PULMWS) DEVON BARAHONA ([id number]) 1960 F Date Time Provider Department 06/14/18 LOU MENDOZA During your visit today, we recorded the following information about you: Luly Wilde 06/14/2018 9:32 AM Signed Devon Barahona is calling Lou Mendoza MD today requesting the orders for C-Pap supplies are faxed to [place], [place] - Please fax order to [phone] These orders were orignally faxed to [facility] and patient was told by [facility] yesterday she is not in their area and unable to fill the request. She was directed to [facility] in [place]. The [place] location advised patient it would take up to two weeks to start the process on getting her supplies. [facility] is able to assist the patient and fill order once they are received. Please call patient when completed. Patient has been without her Cpap Otilia Branch LPN 06/14/2018 1:44 PM Signed Faxed to [facility]. Patient notified. Otilia Zamora Psr 06/19/2018 1:47 PM Signed Patient called today stating [facility] needed her most recent PSG. This PSS faxed over the report to [phone] from her 04/21/15 study which patient confirmed [...] MCG/A* Inhale 2 Puffs as instructed * TBLYJG-LJXNUUCX-IBBIDDF 3,000* Take 1 capsule by mouth three* [...] COMPLETED Source: [place] 1:00 PM [facility] [place] REPOSITORY Office Visit (PULMWS) DEVON BARAHONA ([id number]) 1960 F Date Time Provider Department 06/01/18 [...] GI: notes heartburn. notes dysphagia. denies diarrhea. Uro/HULL DRAFTER: denies dysuria. denies hesitancy. denies nocturia. Menses: Post menopausal Musculoskeletal: denies pain. Neuro: notes headache- temporal, denies focal weakness. denies tremor. Skin: denies rash. Otherwise negative. Lou Mendoza MD 06/02/2018 1:31 PM Signed [facility] [place], 06/01/2018: ? INTERVAL HISTORY: Ms. Barahona is [...] hemoptysis, wheezing, chest tightness. 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 Lou Mendoza MD, [facility] Respiratory [facility] [address] [address] Lou Mendoza MD 06/02/2018 1:30 [...] nasal pillows/cradle cushion system. Lou Mendoza MD, [facility] Respiratory [facility] [address] [address] P: [phone] F: [phone] [email or web address] ? Referring Provider: IVET MEDELLIN [[id number]] Allergies As of Date: 06/01/2018 Noted Allergy [...] (obstructive sleep apnea) [G47.33] Post-nasal drip [R09.82] Order(s):mdhykd-gevubbft-gnluhwq (CREON 3) 3,000-9,500- 15,000 unitTake 1 capsule [...] unit.Disp: 1 EachRfl: 0 SPIROMETRY BASELINE ONLY [3180098] Order #: [id number] FUTURE tiotropium bromide (SPIRIVA RESPIMAT) 1.25 mcg/actuation [...] MCG/A* Inhale 2 Puffs as instructed * NIRFNI-GYPPCKTS-XRZZBDM 3,000* Take 1 capsule by mouth three* [...] nasal pillows/cradle cushion system. Lou Mendoza MD, [facility] [place] [facility] [address] [place] [address] P: [phone] F: [phone] [email or web address] ? Visit Notes: >> Otilia Branch GABRIEL [facility] Jun 01, 2018 12:39 PM Status: Attested ROS: General: Generally feels short of breath with exertion/rushing. Appetite good. Eyes, Ears, nose, throat: notes post nasal drip. notes rhinorrhea. denies purulent nasal discharge. denies epistaxis. notes hoarseness. Vision stable. Cardiac: denies angina, denies edema, denies orthopnea. GI: notes heartburn. notes dysphagia. denies diarrhea. Uro/HULL DRAFTER: denies dysuria. denies hesitancy. denies nocturia. Menses: Post menopausal Musculoskeletal: denies pain. Neuro: notes headache- temporal, denies focal weakness. denies tremor. Skin: denies rash. Otherwise negative. Prescriptions ordered this encounter Disp Refills Start End DJRBVW-FFGRJDUQ-COERFDX 3,000-9,500-* 06/01/2018 Class: Med Update Route: ORAL [...] 06/02/18 PROGRESS Observed: 06/01/2018 Status: COMPLETED Source: [place] 12:43 PM [facility] [place] REPOSITORY HNO ID: [id number] Author: Lou Mendoza Service: (none) Author Type: Physician Type: Progress Notes Filed: 06/02/2018 1:31 PM Note Text: [facility] [place], 06/01/2018: ? INTERVAL HISTORY: Ms. Barahona is [...] hemoptysis, wheezing, chest tightness. 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 [facility] MD, [facility] [place] [facility] [address] [place] [address] BRAIN W/WO CONTRAST Observed: 05/24/2018 Status: F Source: [place] 12:08 PM [facility] REPOSIT[facility] [place] [address] Brain W/WO Contrast MR#: [id number] Acct: [id number] Name: DEVON BARAHONA Rep #: [id number] : 1960 F 57 From: Osmin Lindsay MD PCP: Kolby Alaniz DO Status: REG CLI Study: Brain W/WO Contrast Date of Exam: 05/24/18 Exam# [id number] Ordering Dr: Kolby Alaniz DO STUDY: MRI [...] Service support , CC: Kolby Alaniz DO Probation And Patrol Agent: Signed CHIROPRACTIC REPORT Observed: 05/22/2018 Status: F Source: [place] 2:[address] [facility] [address] [place] [address] OFFICE VISIT Date of Service: 05/22/18 MR#: [id number] Acct: [id number] Name: DEVON BARAHONA Rep #: [id number] : 1960 Provider: [facility] Age/Sex: 57/F Location: [facility] Status: Signed Intake Vital Signs05/22/18 Height 5 [...] BID #180 cap 04/27/18 [Rx Confirmed 05/04/18] uixmne-fevzabnj-pximhya 3,000-9,500-15,000 unit capsule,delayed releas 12.89010 cap PO TID #90 cap 05/04/18 [Rx Confirmed 05/04/18] [facility] Medical History Abnormal colonoscopy (Acute) [...] Orders Orders: Plan Detail Additional Comments Patients ic design engineer ordered imaging to further identify cause [...] Additional Codes Procedures - Manipulation: 3-4 regions (86904) 05/22/18 1416 <Electronically signed by [place] [facility]> Date [facility] Signature: Date (if applicable) CC: CNCO Observed: 05/15/2018 Status: COMPLETED Source: [place] 12:00 AM [facility] REPOSITORY Letter Text Christina Zamudio DO [place] [facility] [address] [place] [address] Devon Barahona May 15, 2018 Devon Barahona [address] [facility] [address] Dear Devon Barahona: Due to a change in your provider's schedule, it has become necessary to cancel the following appointment: Christina Zamudio DO Date: 07/17/18 Time: 11:20 a.m. We apologize for any inconvenience to you, however your provider would still like to see you. Please call us at [phone] to reschedule your appointment. Sincerely, Appointment Staff CHIROPRACTIC REPORT Observed: 05/10/2018 Status: F Source: [place] 8:05 AM [facility] REPOSIT[facility] [address] [place] [address] OFFICE VISIT Date of Service: 05/02/18 MR#: [id number] Acct: [id number] Name: DEVON BARAHONA Rep #: [id number] : 1960 Provider: [facility]. Age/Sex: 57/F Location: [facility] Status: Signed Intake Vital Signs05/02/18 Height 5 [...] BID #180 cap 04/27/18 [Rx Confirmed 05/04/18] ouyrdi-nrvtkhzi-rgibkhv 3,000-9,500-15,000 unit capsule,delayed releas 12.31821 cap PO TID #90 cap 05/04/18 [Rx [...] Additional Codes Procedures - Manipulation: 3-4 regions (87402) 05/10/18 0805 <Electronically signed by [facility]> Date [facility] Cosigncolby Signature: Date (if applicable) CC: INTERNAL MEDICINE Observed: 05/04/2018 Status: F Source: [place] OFFICE VISIT 2:46 PM [facility] Internal Medicine [address] [place] [address] [place] [address] OFFICE VISIT Date of Service: 05/04/18 MR#: [id number] Acct: [id number] Name: DEVON BARAHONA [place] Rep #: [id number] : 1960 Provider: Kolby Alaniz DO Age/Sex: 57/F Location: [facility] Status: Signed Intake Vital Signs05/04/18 Height 5 [...] BID #180 cap 04/27/18 [Rx Confirmed 05/04/18] plmrjf-znywhqzf-yfzrdwp 3,000-9,500-15,000 unit capsule,delayed releas 12.66321 cap PO TID #90 cap 05/04/18 [Rx [...] Judgment: judgment good Office Meds Flucelvax Quad 3934-6511 (PF) Performing Provider: Kolby Alaniz DO Administered by: Radha Wilson on 05/04/18 14:45 Dose Route Admin Location Lot Number Expiration Date NDC Brick Or Block Maker 60 mcg IM Rt Deltoid 194505 12/15/18 14496-875-19 SEQIRUS Assessment AND Plan Problems 1. Gastroesophageal [...] her initial exam. Orders Orders: Medications New: ylsvzq-dgosdkwv-gplovgg 3,000-9,500- 15,000 unit (Creon)12.89741 caps PO TID 90 caps 2RF ; do not crush/chew; swallow whole OR open/sprinkle on applesce; DNExceed 10,000 units/kg lipase/24 hrs Discontinued: Fluad 2017- 65yr up(PF)45 mcg(15 mcgx3)/0.5 mL intramus0.5 mL IM ONCE 0.5 mL 0RF NS Z23 cular syringe (flu vac 2017 65up-jlkBJ47B(PF)) Discont inued Reason: Incorrect ordering MD Plan [...] Kolby Alaniz DO> Date Kol[facility] Alaniz [facility] Signature: Date (if applicable) CC: INTERNAL MEDICINE Observed: 04/18/2018 Status: F Source: [place] OFFICE VISIT 4:56 PM [facility] Internal Medicine [address] [place] [address] [place] [address] OFFICE VISIT Date of Service: 04/18/18 MR#: [id number] Acct: [id number] Name: DEVON BARAHONA Rep #: [id number] : 1960 Provider: Kolby Alaniz DO Age/Sex: 57/F Location: [facility] Status: Signed Intake Vital Signs04/18/18 Height 5 [...] as she has been paying for it rscn-nbj-zbjlscr. She has trouble with her throat feeling [...] but has had to pay for it uxyw-dte-qnhhnxh she requested me to write it as [...] CHIROPRACTIC REPORT Observed: 04/18/2018 Status: F Source: [place] 4:[address] [facility] [address] [place] [address] OFFICE VISIT Date of Service: 04/18/18 MR#: [id number] Acct: [id number] Name: DEVON BARAHONA Rep #: [id number] : 1960 Provider: [facility] D.[facility]. Age/Sex: 57/F Location: [facility] Status: Signed Intake Vital Signs04/18/18 Height 5 [...] Additional Codes Procedures - Manipulation: 3-4 regions (71915) 04/18/18 1604 <Electronically signed by [facility]> Date [facility] Laura Izzy Signature: Date (if applicable) CC: TESTOSTERONE, SERUM TOTAL Collected: 04/18/2018 Status: F Source: [place] 3:50 PM [facility] REPOSITORY TYPE CODE TESTS RESULT OUT [...] CHANGED 07/06/2017 Performed By: #### L509.3000 #### [facility] [address] [place], [place], [address] ERYTHROCYTE SED RATE Collected: 04/18/2018 Status: F Source: [place] 3:40 PM [facility] REPOSITORY TYPE CODE TESTS RESULT OUT OF RANGE REFERENCE UNITS LAB L102.0000 0-30 mm/hr Normal SED RATE 23 Performed By: #### L101.9900 #### [facility] [address] [place], [address] COMPREHENSIVE METABOLIC Collected: 04/18/2018 Status: F Source: [facility] 3:40 PM [facility] REPOSITORY TYPE CODE TESTS RESULT OUT [...] Performed By: #### L500.4050, L500.4100, L501.9520 #### [facility] [address] [place], [address] LIPID PROFILE Collected: 04/18/2018 Status: F Source: [place] 3:40 PM [facility] REPOSITORY TYPE CODE TESTS RESULT OUT [...] Performed By: #### L500.4050, L500.4100, L501.9520 #### [facility] [address] [place], [address] THYROID STIM HORMONE Collected: 04/18/2018 Status: F Source: [place] (TSH) 3:40 PM [facility] REPOSITORY TYPE CODE TESTS RESULT OUT OF RANGE REFERENCE UNITS LAB L501.9520 0.358-3.74 uIU/mL Normal TSH 0.91 Performed By: #### L500.4050, L500.4100, L501.9520 #### [facility] [address] [facility] [place], [address] TIBIA AND FIBULA Observed: 04/18/2018 Status: F Source: [place] 2 VIEWS 3:38 PM [facility] REPOSITORY [facility] Imaging Services [address] [place] [address] Tibia AND Fibula 2 Views MR#: [id number] Acct: [id number] Name: DEVON BARAHONA Rep #: [id number] : 1960 F 57 From: Homer Ambrose DO PCP: Kolby Alaniz DO Status: REG CLI Study: Tibia AND Fibula 2 Views Date of Exam: 04/18/18 Exam# [id number] Ordering Dr: Kolby Alaniz DO STUDY: X-RAY [...] Homer Ambrose DO at 23:54 EDT Tel [phone], Service support , CC: Kolby Alaniz DO Probation And Patrol Agent: Signed CHIROPRACTIC REPORT Observed: 04/06/2018 Status: F Source: [place] 2:36 PM [facility] REPOSITORY [facility] [address] [place] [address] OFFICE VISIT Date of Service: 04/06/18 MR#: [id number] Acct: [id number] Name: DEVON BARAHONA Rep #: [id number] : 1960 Provider: [facility]. Age/Sex: 57/F Location: [facility] Status: Signed Intake Vital Signs04/06/18 Height 5 [...] Additional Codes Procedures - Manipulation: 3-4 regions (94655) 04/06/18 1436 <Electronically signed by [facility]> Date [facility] Cosigner Signature: Date (if applicable) CC: CHIROPRACTIC REPORT Observed: 03/23/2018 Status: F Source: [place] 12:[address] [facility] [address] [place] [address] OFFICE VISIT Date of Service: 03/21/18 MR#: [id number] Acct: [id number] Name: DEVON BARAHONA [place] Rep #: [id number] : 1960 Provider: [facility] D.C. Age/Sex: 57/F Location: [facility] Status: Signed Intake Vital Signs03/21/18 Height 5 [...] ONCE 11/08/17 [History Confirmed 11/08/17] [facility] Medical History Acute asthma (Acute) [...] Additional Codes Procedures - Manipulation: 3-4 regions (59547) 03/23/18 1208 <Electronically signed by [facility].> Date [facility] Cosigner Signature: Date (if applicable) CC: CHIROPRACTIC REPORT Observed: 03/15/2018 Status: F Source: [place] 8:[address] [facility] [address] [place] [address] OFFICE VISIT Date of Service: 03/13/18 MR#: [id number] Acct: [id number] Name: DEVON BARAHONA Rep #: [id number] : 1960 Provider: S[facility]ana [facility] D.C. Age/Sex: 57/F Location: [facility] Status: Signed Intake Vital Signs03/13/18 Height 5 [...] ONCE 11/08/17 [History Confirmed 11/08/17] [facility] Medical History Acute asthma (Acute) [...] Additional Codes Procedures - Manipulation: 3-4 regions (15775) 03/15/18 0820 <Electronically signed by [facility] D.[facility].> Date Sultana Brownign Signature: Date (if applicable) CC: CHIROPRACTIC REPORT Observed: 03/06/2018 Status: F Source: [place] 2:[address] [facility] [address] [place] [address] OFFICE VISIT Date of Service: 03/06/18 MR#: [id number] Acct: [id number] Name: DEVON BARAHONA Rep #: [id number] : 1960 Provider: [facility] D.C. Age/Sex: 57/F Location: [facility] Status: Signed Intake Vital Signs03/06/18 Height 5 [...] Additional Codes Procedures - Manipulation: 3-4 regions (48064) 03/06/18 1405 <Electronically signed by [facility]> Date [facility] Cosigner Signature: Date (if applicable) CC: CHIROPRACTIC REPORT Observed: 02/09/2018 Status: F Source: [place] 1:[address] [facility] [address] [place] [address] OFFICE VISIT Date of Service: 02/06/18 MR#: [id number] Acct: [id number] Name: DEVON BARAHONA Rep #: [id number] : 1960 Provider: S[facility]ana [facility] D.C. Age/Sex: 57/F Location: [facility] Status: Signed Intake Vital Signs02/06/18 Height 5 [...] Additional Codes Procedures - Manipulation: 1-2 regions (62984) 02/09/18 1341 <Electronically signed by [facility]> Date [facility] Cosigner Signature: Date (if applicable) CC: NUCLEAR STRESS Observed: 02/08/2018 Status: F Source: [employer] (CARD) 9:03 AM [facility] REPOSITORY NAME : DEVON BARAHONA PID : [id number] : 1960 Gender : Female Race : ORD : [id number] Procedure Date : Feb 08 2018 09:03:36 Edit Date : Feb 13 2018 12:41:11 Conclusions:PLEASE REFER TO IMAGING SECTION IN [facility] FOR COMPLETE INTERPRETATION OF STRESS TEST [...] Status: F Source: [place] STRESS/PHARM 8:21 AM [facility] REPOSITORY * * *Final [...] 60 minutes later. See administered doses below. [facility] Date of service: 02/08/2018 8:21:45 AM Indication: [...] normal sinus rhythm. Stress complications: none. Final Probation And Patrol Agent: KATELIN Sumnerriwaqas Date/Time: Feb 08 2018 8:21A Dictated by : CHRISTINA ZAMUDIO DO This examination was interpreted and the report reviewed and electronically signed by: CHRISTINA ZAMUDIO DO on Feb 08 2018 12:58PM EST [id number] Observed: 02/01/2018 Status: COMPLETED Source: [place] 12:28 PM [facility] REPOSITORY HNO ID: [id number] Author: Dayami Duggan Service: (none) Author Type: [...] quit by winter due to having her nbhijc-st-erg living with her and he requires oxygen. had been sick from June to December and no longer working due to COPD. COPD - Follows with Dr. Mendoza every 6 months but due to recent PFT they want her to f/u in 3-4 months. Saw FIRE CHIEF'S AIDE Ivet [place] in December. States the Tudorza 400 mcg 1 inhalation twice daily does help, but recently feels more sob. Has had increased anxiety lately due to taking care of her jrdoya-vb-lep. Cardio - Follows with Dr. Olivarez every 6 months. Was scheduled for a Stress Test but had to cancel due to her cgtvmt-hg-uyj being d/c from TCU. Admits to sob [...] Capsulotomy - EGD 05/24/14 - EGD W/O [facility] SPECIMEN W/BX 04/17/10 - EXCISION MALIGNANT LESIONS,VUL [...] - SLING OPER STRES INCONTINENCE 11/26/10, 04/2011 [facility] [place] [facility] Family History FAMILY HISTORY Problem Relation [...] PM. CNOV Observed: 02/01/2018 Status: COMPLETED Source: [place] 12:20 PM [facility] REPOSITORY Office Visit (FAMPWS) DEVON BARAHONA ([id number]) 1960 F Date Time Provider Department 02/01/18 [...] quit by winter due to having her bjenyq-bu-wde living with her and he requires oxygen. had been sick from June to December and no longer working due to COPD. COPD - Follows with Dr. Mendoza every 6 months but due to recent PFT they want her to f/u in 3-4 months. Saw FIRE CHIEF'S AIDE Ivet Medellin in December. States the Tudorza 400 mcg 1 inhalation twice daily does help, but recently feels more sob. Has had increased anxiety lately due to taking care of her fqxbxq-om-jvo. Cardio - Follows with Dr. Olivarez every 6 months. Was scheduled for a Stress Test but had to cancel due to her puprub-ws-iwr being d/c from [facility]CU. Admits to sob [...] - COPD (chronic obstructive pulmonary disease) ([facility] - Esophagitis, unspecified - Family [...] Capsulotomy - EGD 05/24/14 - EGD W/O [facility] SPECIMEN W/BX 04/17/10 - EXCISION MALIGNANT LESIONS,VUL [...] - SLING OPER STRES INCONTINENCE 11/26/10, 04/2011 [facility] [place] Family History FAMILY HISTORY Problem Relation [...] 2018 12:28 PM. Referring Provider: DAYAMI DUGGAN [[id number]] Allergies As of Date: 02/01/2018 Noted Allergy [...] days.Disp: 360 tabletRfl: 0 CONSULT TO GASTROENTEROLOGY [5733] Order #: [id number]: 1 Prescriptions as of 02/01/2018 Sig: LORAZEPAM [...] CHIROPRACTIC REPORT Observed: 01/23/2018 Status: F Source: [place] 9:[address] [facility] [address] [place] [address] OFFICE VISIT Date of Service: 01/17/18 MR#: [id number] Acct: [id number] Name: DEVON BARAHONA Rep #: [id number] : 1960 Provider: Sultana North D.C. Age/Sex: 57/F Location[place] [facility] [place] Status: Signed Intake Vital Signs01/17/18 Height 5 [...] Additional Codes Procedures - Manipulation: 1-2 regions (65019) 01/23/18 0942 <Electronically signed by Sultana North D.C.> Date Sultana Magana Signature: Date (if applicable) CC: PROGRESS Observed: 01/11/2018 Status: COMPLETED Source: [place] 2:10 PM [facility] REPOSITORY O ID: [id number] Author: Christina Zamudio Service: (none) Author Type: [...] Capsulotomy - EGD 05/24/14 - [facility] 04/17/10 - EXCISION [...] JVD, carotids well felt, no bruits. CARDIAC: [place] palpable in the 5th intercostal space mid [...] MR ECHO 06/15/[address] Fernandez in [place]: CONCLUSIONS: - Technically difficult exam due to [...] are no gross valvular abnormalities. - Prior Louann echo of 04/25/15 is similar. Regadenoson SPECT MPI (today) moderate size, mild intensity defect in mid to distal anterior wall c/w ischemia (LAD/Dx). CATH 04/22/11, nl coronaries, increase LVEDP 20 Cholesterol (mg/dL) Date Date Value Low High Status 05/26/2011 291* 100 199 Final HDL Cholesterol (mg/dL) Date Date Value Low High Status 05/26/2011 54* >55 Final LDL Chol, [place] (mg/dL) Date Date Value Low High Status [...] DO, FACC, FCCP, FACOI Dayami Duggan MD [address] [place] [address] CNOV Observed: 01/11/2018 Status: COMPLETED Source: [place] 2:00 PM [facility] REPOSITORY Office Visit (CARDMM) DEVON BARAHONA ([id number]) 1960 F Date Time Provider Department 01/11/18 [...] Capsulotomy - EGD 05/24/14 - EGD W/O [facility] SPECIMEN W/BX 04/17/10 - EXCISION MALIGNANT LESIONS,VUL [...] JVD, carotids well felt, no bruits. CARDIAC: [place] palpable in the 5th intercostal space mid [...] MR ECHO 06/15/[address] Fernandez in [place]: CONCLUSIONS: - Technically difficult exam due to [...] are no gross valvular abnormalities. - Prior Louann echo of 04/25/15 is similar. Regadenoson SPECT MPI (today) moderate size, mild intensity defect in mid to distal anterior wall c/w ischemia (LAD/Dx). CATH 04/22/11, nl coronaries, increase LVEDP 20 Cholesterol (mg/dL) Date Date Value Low High Status 05/26/2011 291* 100 199 Final HDL Cholesterol (mg/dL) Date Date Value Low High Status 05/26/2011 54* >55 Final LDL Chol, [place] (mg/dL) Date Date Value Low High Status [...] , FACC, FCCP, FACOI Dayami Duggan MD [address] [place] [address] Referring Provider: DAYAMI DUGGAN [[id number]] Allergies As of Date: 01/11/2018 Noted Allergy [...] apnea) [G47.33] Panlobular emphysema (HCC) [J43.1] Order(s):ECHO [551068] Order #: [id number]: 1 FUTURE PHARMACOLOGIC STRESS W/NUC IMAGING [8715882] Order #: [id number]: 1 NM CARDIAC PERF STRESS/PHARM [2685228] Order #: [id number] FUTURE Prescriptions as of 01/11/2018 Sig: ZOLPIDEM [...] CHIROPRACTIC REPORT Observed: 12/08/2017 Status: F Source: [place] 2:[address] [facility] [address] [place] [address] OFFICE VISIT Date of Service: 12/08/17 MR#: [id number] Acct: [id number] Name: DEVON BARAHONA Rep #: [id number] : 1960 Provider: Sultana North D.C. Age/Sex: 57/F Location[place] [facility] [place] Status: Signed Intake Vital Signs12/08/17 Height 5 [...] ONCE 11/08/17 [History Confirmed 11/08/17] [facility] Medical History Acute asthma (Acute) [...] Additional Codes Procedures - Manipulation: 1-2 regions (76809) Procedures - Traction, Mechanical: Yes (07896) 12/08/17 1412 <Electronically signed by Sultana North D.C.> Date Sultana North D.C. Cosigner Signature: Date (if applicable) CC: CHIROPRACTIC REPORT Observed: 11/28/2017 Status: F Source: [place] 3:[address] [facility] [address] [place] [address] OFFICE VISIT Date of Service: 11/24/17 MR#: [id number] Acct: [id number] Name: DEVON BARAHONA Rep #: [id number] : 1960 Provider: Sultana Dossi, D.C. Age/Sex: 57/F Location: [facility] Status: Signed Intake Vital Signs11/24/17 Height 5 [...] ONCE 11/08/17 [History Confirmed 11/08/17] [facility] Medical History Acute asthma (Acute) [...] Additional Codes Procedures - Traction, Mechanical: Yes (10464) Procedures - Manipulation: 3-4 regions (79860) 11/28/17 1501 <Electronically signed by Sultana North D.C.> Date Sultana North D.C. Cosigner Signature: Date (if applicable) CC: PROGRESS Observed: 11/21/2017 Status: COMPLETED Source: [place] 2:31 PM [facility] REPOSITORY HNO ID: [id number] Author: Ivet Medellin Service: (none) Author Type: Physician Sales Account Representative Type: Progress Notes Filed: 11/21/2017 3:20 PM Note Text: [facility] [place], 11/21/2017: ? INTERVAL HISTORY: Ms. Barahona is here for follow up of COPD and obstructive sleep apnea. Since the 04/2017 visit, the patient has not sought MD, ED or hospital care for exacerbation. ? She has been compliant with prescribed Rx. Daily cough; occasionally with clear sputum. No hemoptysis, wheezing, chest tightness. Exertional dyspnea, stable. 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 GI: Heartburn, constantly. No dysphagia, diarrhea. Uro/HULL DRAFTER: No dysuria, hesitancy, nocturia. Musculoskeletal: No pain. [...] of my answers ? Ivet Medellin PA-C [facility] [address] [place] [address] ? CNOV Observed: 11/21/2017 Status: COMPLETED Source: [place] 2:30 PM [facility] REPOSITORY Office Visit (PULMWS) DEVON BARAHONA ([id number]) 1960 F Date Time Provider Department 11/21/17 2:30 PM IVET MEDELLIN PULWS During your visit today, we recorded the following information about you: Pulse Respiration Blood pressure Weight 74/minute 16/minute 120/80 100.7 kg Height 1.6 m Otilia Branch GABRIEL 11/21/2017 2:21 PM Signed Intake information documented in the prior visit with Karen Spears, YARN BLEACHING MACHINE OPERATOR today. Ivet Medellin 11/21/2017 3:20 PM Signed [facility], 11/21/2017: ? INTERVAL HISTORY: Ms. Barahona is here for follow up of COPD and obstructive sleep apnea. Since the 04/2017 visit, the patient has not sought MD, ED or hospital care for exacerbation. ? She has been compliant with prescribed Rx. Daily cough; occasionally with clear sputum. No hemoptysis, wheezing, chest tightness. Exertional dyspnea, stable. 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 GI: Heartburn, constantly. No dysphagia, diarrhea. Uro/HULL DRAFTER: No dysuria, hesitancy, nocturia. Musculoskeletal: No pain. [...] of my answers ? Ivet Medellin PA-C [facility] [place] [address] [place] [address] ? Ivet Medellin 11/21/2017 3:18 [...] on CPAP [G47.33, Z99.89] Order(s):SPIROMETRY BASELINE ONLY [4875456] Order #: [id number] FUTURE Prescriptions as of 11/21/2017 Sig: ZOLPIDEM [...] gastritis without mention of hemorrhage [*INVALID FOR*05/04/2012 ALIAY (obstructive sleep apnea) [G47.33] INVALID FOR* More... [...] CHIROPRACTIC REPORT Observed: 11/15/2017 Status: F Source: [place] 2:[address] [facility] [address] [place] [address] OFFICE VISIT Date of Service: 11/14/17 MR#: [id number] Acct: [id number] Name: DEVON BARAHONA Rep #: [id number] : 1960 Provider: Sultana North D.C. Age/Sex: 57/F Location: [facility] Status: Signed Intake Vital Signs11/14/17 Height 5 [...] Additional Codes Procedures - Manipulation: 1-2 regions (12116) 11/15/17 1400 <Electronically signed by Sultana North D.C.> Date Sultana North D.C. Cosigner Signature: Date (if applicable) CC: CHIROPRACTIC REPORT Observed: 11/10/2017 Status: F Source: [place] 4:[address] [facility] [address] [place], [place] [address] OFFICE VISIT Date of Service: 11/08/17 MR#: [id number] Acct: [id number] Name: DEVON BARAHONA Rep #: [id number] : 1960 Provider: Sultana North D.C. Age/Sex: 57/F Location[place] [facility] [place] Status: Signed Intake Vital Signs11/08/17 Height 5 [...] imaging that patient brought with her. Lumbar rotation-AZ. RIL:, LIL:PI. Decreased L5 disc height. Facet arthropathy at L4/L5. Goals Decrease pain Increase ROM Follow Up 1 Week Coding Level of Care Code Off vis,new,level 3 Diagnoses Back pain M54.9 Segmental and somatic dysfunction of lumbar region M99.03 Segmental and somatic dysfunction of thoracic region M99.02 Segmental and somatic dysfunction of pelvic region M99.05 Additional Codes Procedures - Manipulation: 3-4 regions (08798) 11/10/17 4186 <Electronically signed by Sultana North D.C.> Date Sultana North D.C. Cosigner Signature: Date (if applicable) CC: XR LUMBAR 3V Observed: 10/31/2017 Status: F Source: [place] AP/LAT/L5-S1 2:58 PM [facility] REPOSITORY * * *Final [...] spine are presented. FINDINGS: There are five jjp-ike-tmcghva lumbar vertebra. No fracture or subluxations are noted. The disc spaces are well preserved. There is mild osteophyte formation. IMPRESSION: Lumbar spine mild degenerative changes. Probation And Patrol Agent: PSCB Transcribe Date/Time: Oct 31 2017 7:38P Dictated by : SUE MURRAY MD This examination was interpreted and the report reviewed and electronically signed by: SUE MURRAY MD on Oct 31 2017 7:39PM EST [id number] PROGRESS Observed: 10/31/2017 Status: COMPLETED Source: [place] 2:57 PM [facility] REPOSITORY HNO ID: [id number] Author: Logan Aguilera (Rt) Service: (none) Author Type: Marketing Communications Associate Type: Progress Notes Filed: 10/31/2017 2:58 PM [...] PM PROGRESS Observed: 10/31/2017 Status: COMPLETED Source: [place] 1:56 PM [facility] REPOSITORY HNO ID: [id number] Author: Dayami Duggan Service: (none) Author Type: [...] set up to see Dr. Bharathi Sosa, document improvement specialist. She did PT in past for [...] - ALIYA (obstructive sleep apnea) 02/17/2011 - [facility] - PAST MEDICAL HISTORY OF 1996 vulva cancer - Ulcer Previous Surgical History PAST SURGICAL HISTORY Procedure Laterality Date - BX OF BREAST; INCISIONAL Left 05/17/2017 - COLONOSCOPY 05/24/14 Repeat due 2016 - COLONOSCOPY 03/30/16 tubular adenoma, repeat in 3 years - DISCISSION,2ND CATARACT,LASER Right 10/14/2015 Yag Capsulotomy - EGD 05/24/14 - EGD W/O [facility] SPECIMEN W/BX 04/17/10 - EXCISION MALIGNANT LESIONS,VUL [...] - SLING OPER STRES INCONTINENCE 11/26/10, 04/2011 [facility] [place] [facility] Family History FAMILY HISTORY Problem Relation [...] PM. CNOV Observed: 10/31/2017 Status: COMPLETED Source: [place] 1:20 PM [facility] REPOSITORY Office Visit (FAMPWS) DEVON BARAHONA ([id number]) 1960 F Date Time Provider Department 10/31/17 1:20 PM [facility] visit today, we recorded [...] set up to see Dr. Bharathi Sosa, document improvement specialist. She did PT in past for [...] Capsulotomy - EGD 05/24/14 - [facility] 04/17/10 - EXCISION [...] - SLING OPER STRES INCONTINENCE 11/26/10, 04/2011 [facility] main [place] [facility] Family History FAMILY HISTORY Problem Relation [...] twitch [R25.3] Order(s):XR LUMBAR GENERAL 3V AP/LAT/L5-S1 [[id number]] Order #: [id number] FUTURE Prescriptions as of 10/31/2017 Sig: LORAZEPAM [...] ED NOTE Observed: 10/26/2017 Status: COMPLETED Source: [place] 10:49 AM [facility] [place] REPOSITORY HNO ID: [id number] Author: Venita (Rn) CÉSAR Crawford Service: Emergency Medicine Author Type: Registered Nurse Type: ED Notes Filed: 10/26/2017 10:50 AM Note Text: Discharge instructions reviewed with patient via teachback. Pt awake and alert, respirations stable. Pt verbalizes understanding. No further questions for this RN. XR CHEST 1V FRONTAL Observed: 10/26/2017 Status: F Source: [facility] 10:35 AM [facility] OTHER CAMPUS REPOSITORY * * *Final [...] acute abnormality. No radiopaque foreign body noted. Probation And Patrol Agent: ALEXX Transcribe Date/Time: Oct 26 2017 10:36A Dictated by : JANESSA GAUTAM MD This examination was interpreted and the report reviewed and electronically signed by: JANESSA GAUTAM MD on Oct 26 2017 10:37AM EST [id number] ED PROV NOTE Observed: 10/26/2017 Status: COMPLETED Source: [place] 10:01 AM [facility] OTHER CAMPUS REPOSITORY HNO ID: [id number] Author: Karen Hayes (Pa) Service: (none) Author Type: Physician Sales Account Representative Type: ED Provider Notes Filed: 10/26/2017 10:46 [...] and/or lung. Patient does not work for [employer], has no GI symptoms, no shortness of [...] ED NOTE Observed: 10/26/2017 Status: COMPLETED Source: [place] 9:35 AM [facility]AMP[facility] REPOSITORY HNO ID: [id number] Author: Aracelis (Rn) CÉSAR Murdock Service: (none) Author Type: Registered Nurse Type: ED Notes Filed: 10/26/2017 9:36 AM Note Text: Patient presents with c/o worm under her skin in her upper back on right side-by shoulder blade that itches PROGRESS Observed: 09/12/2017 Status: COMPLETED Source: [place] 2:49 PM [facility] [place] REPOSITORY HNO ID: [id number] Author: Bernard Guthrie Service: (none) Author Type: [...] day. This note was partially generated using Peak 10 voice recognition system and as such may contain grammatical or word errors PROGRESS Observed: 09/12/2017 Status: COMPLETED Source: [place] 1:21 PM [facility] OTHER CAMPUS REPOSITORY HNO ID: [id number] Author: Rae Dominguez) JANE Almanza Service: (none) Author Type: Clinical Marketing Communications Associate Type: Progress Notes Filed: 09/12/2017 1:22 PM Note Text: NAME:Devon Barahona DATE: September 12, 2017 [facility]#: [id number] Pelvis X-Ray and Hip X-Ray COMPLETED TECH ID SIGN: RAE ALMANZA XR HIP 3V PELV+ Observed: 09/12/2017 Status: F Source: [place] AP/LAT LT 1:05 PM [facility] OTHER CAMPUS [...] seen. IMPRESSION: Moderate narrowing both hip joints. Probation And Patrol Agent: PSCB Transcribe Date/Time: Sep 12 2017 2:02P Dictated by : CINDY DURBIN DO This examination was interpreted and the report reviewed and electronically signed by: CINDY DURBIN DO on Sep 12 2017 4:33PM EST [id number] COMP METABOLIC PANEL Collected: 09/01/2017 Status: F Source: [place] 2:21 PM [facility] REPOSITORY TYPE CODE TESTS RESULT OUT OF REFERENCE UNITS RANGE LAB TP 6.3-8.0 g/dL Protein, Total 7.1 LAB ALB 3.9-4.9 g/dL Albumin 4.3 LAB CA 8.5-10.2 mg/dL Calcium, Total 9.4 LAB TBIL 0.2-1.3 mg/dL Bilirubin, Total 1.0 LAB ALKP 32-117 U/L Alkaline Phosphatase 111 LAB AST 13-35 U/L AST 17 LAB GLU 74-99 mg/dL Glucose 77 Result Comment: The [place] Diabetes Association (ADA) provides guidance for cutoff [...] Standards of Medical Care in Diabetes 2016, [place] Diabetes Association. Diabetes Care. 2016.39(Suppl 1). LAB [...] GFR. Performed By: #### CMP, LIPB #### [facility] [address] [place], [place] [address] LIPID PANEL, BASIC Collected: 09/01/2017 Status: F Source: [place] 2:21 PM [facility] REPOSITORY TYPE CODE TESTS [...] Desk Reference: National Heart, Lung, and Blood [place]. National Institutes of Health. 2001: NIH Publication No. 01-3305. 2. An International Atherosclerosis Society position paper: global recommendations for the management of dyslipidemia: executive summary, Atherosclerosis. 2014: 232(2):410-413. Performed By: #### CMP, LIPB #### [facility] [address] [place] [id number] PROGRESS Observed: 09/01/2017 Status: COMPLETED Source: [place] 1:20 PM [facility] REPOSITORY HNO ID: [id number] Author: Dayami Duggan Service: (none) Author Type: [...] OPER STRES INCONTINENCE 11/26/10, 04/2011 [facility] [place] [facility] Family History FAMILY HISTORY Problem Relation [...] SOURCE 07/25/2018 Drug hydrocodone Upset Stomach Unknown [place] Allergy/416 bitartrate/[id number] [facility] 485356([place] [address] 07/25/2018 Drug oxycodone Other Unknown [place] Allergy/416 HCl/[id number](RXNO Community 605916([facility] ED CT) Repository 07/25/2018 Drug propoxyphene Vomiting Unknown [place] Allergy/416 HCl/J898190001(RXNO Community 976914([facility] ED CT) Repository 07/25/2018 Drug aloe Other Unknown [place] Allergy/416 vera/Z029377018(RXN Community 239930([facility] ED CT) Repository 07/25/2018 Drug doxycycline/M860487 Other Unknown [place] Allergy/416 748(RXNORM) Community 129340([facility] ED CT) Repository 06/01/2018 DRUG PENICILLIN OTHER: SEE C [facility] INGREDI/419 Other [place] [address]([facility] Repository ED CT) 09/08/2012 DRUG DOXYCYCLINE OTHER: SEE C [facility] INGREDI/419 Other [place] 018865([facility] Repository ED CT) 03/26/2010 DRUG ALOE VERA RASH [facility] INGREDI/419 Other [place] 678361(SNOM Repository ED CT) 03/17/2010 DRUG/293414 HYDROCODONE-ACETAMI GI UPSET [facility] 003(SNOMED NOPHEN Other [place] CT) Repository 03/17/2010 DRUG PROPOXYPHENE HCL GI UPSET [facility] INGREDI/419 Other [place] 511372(SNOM Repository ED CT) 03/17/2010 DRUG/412792 OXYCODONE-ACETAMINO Mental [facility] 003(SNOMED PHEN Other [place] CT) Repository 03/17/2010 DRUG/825415 HYDROCODONE-ACETAMI GI UPSET [facility] 003(SNOMED NOPHEN Other [place] CT) Repository ENCOUNTERS ENCOUNTERS ADMIT/DISCHARGE ACCOUNT ADMITTING ENCOUNTER LOCATION SOURCE NUMBER CLASS 08/10/2018 [id number] Ambulatory [facility] ing:EN Repository 08/09/2018 [id number] Ambulatory [facility] ing:MTLAB Repository 08/08/2018 [id number] Ambulatory BMSBuilding:B [place] [facility] Repository 07/25/2018/07/25/19 [id number] Ambulatory BMSBuilding:[facility] [place] 19 MS.[facility] Repository 07/24/2018/07/24/19 [id number] Emergency [address] Repository 07/19/2018/07/19/19 [id number] Emergency [address] Repository 07/17/2018/07/17/20 [id number] Emergency [address] Repository 07/14/2018/07/14/20 [id number] Ambulatory BMSBuilding:B [place] 18 MS.[facility] Repository 07/05/2018/07/05/20 [id number] Emergency [address] ing:ED Repository 07/05/2018/07/05/20 [id number] Ambulatory [address] ing:ENRoom: Repository AC-TBA 06/26/2018/06/26/20 [id number] Ambulatory BMSBuilding:B [place] [address] [facility] Repository 06/22/2018/06/22/20 [id number] Ambulatory BMSBuilding:B [place] 18 MS.[facility] Repository 06/15/2018 [id number] [facility] ing:OPBI Repository 06/01/2018/06/05/20 [id number] Ambulatory [address] Repository 06/01/2018 [id number] [facility] Repository 06/01/2018 [id number] Ambulatory BMSBuilding:[place] [facility] Repository 05/24/2018 [id number] Ambulatory [facility] Hospital ing:MRI Repository 05/22/2018/05/22/20 [id number] Ambulatory BMSBuilding:B [place] [address] [facility] Repository 05/04/2018/05/04/20 [id number] Ambulatory BMSBuilding:B [place] 18 MS.[facility] Repository 05/02/2018/05/02/20 [id number] Ambulatory BMSBuilding:B [place] 18 [facility] Repository 04/18/2018 [id number] [facility] ing:MTLAB Repository 04/18/2018/04/18/20 [id number] Ambulatory BMSBuilding:B [place] 18 MS.[facility] Repository 04/18/2018/04/18/20 [id number] Ambulatory BMSBuilding:[facility] [place] 18 [facility] Repository 04/06/2018/04/06/20 [id number] Ambulatory BMSBuilding:B [place] 18 [facility] Repository 03/21/2018/03/21/20 [id number] Ambulatory BMSBuilding:[place] 18 [facility] Repository 03/13/2018/03/13/20 [id number] Ambulatory BMSBuilding:[facility] [place] 18 [facility] Repository 03/06/2018/03/06/20 [id number] Ambulatory BMSBuilding:[facility] [place] 18 [facility] Repository 02/08/2018 [id number] Ambulatory [facility] Repository 02/08/2018 [id number] Ambulatory [facility] Repository 02/08/2018 [id number] Ambulatory [facility] Repository 02/06/2018/02/07/20 [id number] Ambulatory BMSBuilding:B [place] 18 [facility] Repository 02/01/2018/02/04/20 [id number] Ambulatory [address] Repository 01/17/2018/01/18/20 [id number] Ambulatory BMSBuilding:B [place] 18 [facility] Repository 01/11/2018/01/20/20 [id number] Ambulatory [address] Repository 01/04/2018 [id number] Ambulatory BMSBuilding:B [place] [facility] Repository 12/22/2017/12/23/19 [id number] Ambulatory BMSBuilding:B [place] 18 [facility] Repository 12/15/2017 [id number] Ambulatory BMSBuilding:[facility] [place] [facility] Repository 12/08/2017/12/09/19 [id number] Ambulatory BMSBuilding:B [place] 18 [facility] Repository 11/24/2017/11/25/19 [id number] Ambulatory BMSBuilding:B [place] 18 [facility] Repository 11/21/2017/11/25/19 [id number] Ambulatory [address] Repository 11/21/2017/11/24/19 [id number] Ambulatory [address] Repository 11/14/2017/11/15/19 [id number] Ambulatory BMSBuilding:B [place] 18 [facility] Repository 11/08/2017/11/09/19 [id number] Ambulatory BMSBuilding:B [place] 18 [facility] Repository 10/31/2017/11/01/19 [id number] Ambulatory [address] Repository 10/31/2017/11/02/19 [id number] Ambulatory [address] Repository 10/26/2017/10/27/19 [id number] Emergency [address] Repository 09/12/2017/09/13/19 [id number] Ambulatory [address] Repository 09/12/2017/09/12/19 [id number] Ambulatory [address] Repository 09/01/2017/09/01/19 [id number] Ambulatory [address] Repository 09/01/2017/09/01/19 [id number] Ambulatory [address] Repository PAYERS PAYERS ENCOUNTER GUARANTOR PAYER SUBSCRIBER SOURCE 08/10/2018 DEVON L Primary DEVON L Beltrami [id number] Insurance:CARESOURCEP DOBBINSDOB: [facility] white Number: [id number], [place] [id number] Repository 51858Vvp: (330) Date:2018-07-14P O [phone] () [address]ATTN: [place] [address]HG: 08/10/2018 Secondary NOT GIVENUNK Gopal Insurance:SELF PAY [facility] Number: Effective Repository Date:2018-07-14 08/09/2018 DEVON L Primary DEVON L Gopal [id number] Insurance:CARESOURCEP DOBBINSDOB: [facility] Number: [id number], [place] [id number] Repository 32340Gte: (330) Date:2018-08-09P O [phone] () [address]ATTN: [place] [address]SU: 08/09/2018 Secondary NOT GIVENUNK Beltrami Insurance:SELF PAY [facility] Number: Effective Repository Date:2018-08-09 08/08/2018 DEVON L Primary DEVON L Gopal [id number] Insurance:CARESOURCEP [facility]INSDOB[facility] Number: [id number], [place] [id number] Repository 42897Nfa: (330) Date:2018-08-08P O [phone] () [address]ATTN: [place] [address]JO: 08/08/2018 Secondary NOT GIVENUNK Gopal Insurance:SELF PAY [facility] Number: Effective Repository Date:2018-08-08 07/25/2018 DEVON L Primary DEVON L Beltrami [id number] Insurance:CARESOURCEP DOBBINSDOB: [facility] Number: [id number], [place] [id number] Repository 05748Gso: (330) Date:2018-05-04P O [phone] () [address]ATTN: [place] [address]WJ: 07/25/2018 Secondary NOT GIVENUNK Beltrami Insurance:SELF PAY [facility] Number: Effective Repository Date:2018-07-13 07/14/2018 DEVON L Primary DEVON L Beltrami [id number] Insurance:CARESOURCEP DOBBINSDOB: [facility] Number: [id number], [place] [id number] Repository 14567Acg: (330) Date:2018-07-06P O [phone] () [address]ATTN: [place] [address]MB: 07/14/2018 Secondary NOT GIVENUNK Gopal Insurance:SELF PAY [facility] Number: Effective Repository Date:2018-07-12 07/05/2018 DEVON L Primary DEVON L Gopal [id number] Insurance:CARESOURCEP DOBBINSDOB: [facility] mejiaruchi Number: [id number], [place] [id number] Repository 84802Zdf: (330) Date:2018-07-05P O [phone] () [address]ATTN: [place] [address]BH: 07/05/2018 Secondary NOT GIVENUNK Gopal Insurance:SELF PAY [facility] Number: Effective Repository Date:2018-07-05 07/05/2018 DEVON L Primary DEVON L Beltrami [id number] Insurance:CARESOURCEP DOBBINSDOB: [facility] Number: [id number], [place] [id number] Repository 11576Oqp: (330) Date:2018-06-26P O [phone] () [address]ATTN: [place] [address]WB: 07/05/2018 Secondary NOT GIVENUNK Beltrami Insurance:SELF PAY [facility] Number: Effective Repository Date:2018-06-26 06/26/2018 DEVON L Primary DEVON L Beltrami [id number] Insurance:CARESOURCEP DOBBINSDOB: [facility] Number: [id number], [place] [id number] Repository 755[address]Axy: (330) Date:2018-06-22P O [phone] () [address]ATTN: [place] [address]CD: 06/26/2018 Secondary NOT GIVENUNK Beltrami Insurance:SELF PAY [facility] Number: Effective Repository Date:2018-06-23 06/22/2018 DEVON L Primary DEVON L Beltrami [id number] Insurance:CARESOURCEP DOBBINSDOB: [facility] olic Number: [id number], [place] [id number] Repository 99[address]Jqb: (330) Date:2018-06-15P O [phone] () [address]ATTN: [place] [address]TK: 06/22/2018 Secondary NOT GIVENUNK Gopal Insurance:SELF PAY [facility] Number: Effective Repository Date:2018-06-21 06/15/2018 DEVON L Primary DEVON L Beltrami [id number] Insurance:CARESOURCEP DOBBINSDOB: [facility] olic Number: [id number], [place] [id number] Repository 33870Jdv: (330) Date:2018-05-04P O [phone] () [address]ATTN: [facility] [address]BE: 06/15/2018 Secondary NOT GIVENUNK Beltrami Insurance:SELF PAY [facility] Number: Effective Repository Date:2018-05-04 06/01/2018 DEVON L Primary DEVON L Gopal [id number] Insurance:CARESOURCEP DOBBINSDOB: [facility] Number: [id number], [place] [id number] Repository 48368Zxb: (330) Date:2018-06-01P O [phone] () [address]ATTN: [place] [address]XC: 06/01/2018 Secondary NOT GIVENUNK Beltrami Insurance:SELF PAY [facility] Number: Effective Repository Date:2018-06-01 05/24/2018 DEVON L Primary DEVON L Gopal [id number] Insurance:CARESOURCEP DOBBINSDOB: [facility] Number: [id number], [place] [id number] Repository 82[address]Duj: (330) Date:2018-05-04P O [phone] () [address]ATTN: [place] [address]AM: 05/24/2018 Secondary NOT GIVENUNK Beltrami Insurance:SELF PAY [facility] Number: Effective Repository Date:2018-05-04 05/22/2018 DEVON L Primary DEVON L Beltrami [id number] Insurance:CARESOURCEP [facility]BBINSDOB[facility] Number: [id number], [place] [id number] Repository 452[address]Qji: (330) Date:2018-05-02P O [phone] () [address]ATTN: [place] [address]GZ: 05/22/2018 Secondary NOT GIVENUNK Beltrami Insurance:SELF PAY [facility] Number: Effective Repository Date:2018-05-22 05/04/2018 DEVON L Primary DEVON L Gopal [id number] Insurance:CARESOURCEP [facility]BBINSDOB[facility] Number: [id number], [place] [id number] Repository 70[address]Rko: (330) Date:2018-04-18P O [phone] (HP) [address]ATTN: [place] [address]XW: 05/04/2018 Secondary NOT GIVENUNK Gopal Insurance:SELF PAY [facility] Number: Effective Repository Date:2018-05-04 05/02/2018 DEVON L Primary DEVON L Beltrami [id number] Insurance:CARESOURCEP DOBBINSDOB: [facility] Number: [id number], [place] [id number] Repository 16337Afi: (330) Date:2018-04-06 O [phone] () [address]ATTN: [place] [address]PG: 05/02/2018 Secondary NOT GIVENUNK Gopal Insurance:SELF PAY [facility] Number: Effective Repository Date:2018-05-02 04/18/2018 DEVON L Primary DEVON L Gopal [id number] Insurance:CARESOURCEP DOBBINSDOB: [facility] Number: [id number], [place] [id number] Repository 46[address]Nhn: (330) Date:2018-04-18 O [phone] () [address]ATTN: [place] [address]NH: 04/18/2018 Secondary NOT GIVENUNK Beltrami Insurance:SELF PAY [facility] Number: Effective Repository Date:2018-04-18 04/18/2018 DEVON L Primary DEVON L Gopal [id number] Insurance:CARESOURCEP DOBBINSDOB: [facility] Number: [id number], [place] [id number] Repository 13783Hlb: (330) Date:2018-02-21P O [phone] (HP) [address]ATTN: [place] [address]EJ: 04/18/2018 Secondary NOT GIVENUNK Gopal Insurance:SELF PAY [facility] Number: Effective Repository Date:2018-02-21 04/18/2018 DEVON L Primary DEVON L Beltrami [id number] Insurance:CARESOURCEP DOBBINSDOB: [facility] [place] Number: [id number], [place] [id number] Repository 97[address]Hcg: (330) Date:2018-03-06P O [phone] () [address]ATTN: [place] [address]WJ: 04/18/2018 Secondary NOT GIVENUNK Beltrami Insurance:SELF PAY [facility] Number: Effective Repository Date:2018-04-18 04/06/2018 DEVON L Primary DEVON L Gopal [id number] Insurance:CARESOURCEP [facility]BBINSDOB: [facility] Number: [id number], [place] [id number] Repository 14[address]Aka: (330) Date:2018-03-06P O [phone] () [address]ATTN: [place] [address]HZ: 04/06/2018 Secondary NOT GIVENUNK Beltrami Insurance:SELF PAY [facility] Number: Effective Repository Date:2018-04-06 03/21/2018 DEVON L Primary DEVON L Gopal [id number] Insurance:CARESOURCEP DOBBINSDOB: [facility] Number: [id number], [place] [id number] Repository 600[address]Zhk: (330) Date:2018-02-06P O [phone] () [address]ATTN: [place] [address]XN: 03/21/2018 Secondary NOT GIVENUNK Beltrami Insurance:SELF PAY [facility] Number: Effective Repository Date:2018-03-21 03/13/2018 DEVON L Primary DEVON L Gopal [id number] Insurance:CARESOURCEP DOBBINSDOB: [facility] olicy Number: [id number], [place] [id number] Repository 25205Sch: (330) Date:2018-03-13P O [phone] () [address]ATTN: [place] [address]VD: 03/13/2018 Secondary NOT GIVENUNK Beltrami Insurance:SELF PAY [facility] Number: Effective Repository Date:2018-03-13 03/06/2018 DEVON L Primary DEVON L Beltrami [id number] Insurance:CARESOURCEP DOBBINSDOB: [facility] Number: [id number], [place] [id number] Repository 58331Tns: (330) Date:2018-02-27P O [phone] () [address]ATTN: [place] [address]LW: 03/06/2018 Secondary NOT GIVENUNK Gopal Insurance:SELF PAY [facility] Number: Effective Repository Date:2018-03-06 02/06/2018 DEVON L Primary NOT GIVENUNK Gopal [id number] [place] Number: Effective Repository [phone]: (330) Date:2018-02-06 [phone] () 01/17/2018 DEVON L Primary NOT GIVENUNK Beltrami [id number] Insurance[place] Number: [place] Repository [phone]: (330) Date:2018-01-17 [phone] () 01/04/2018 DEVON L Primary NOT GIVENUNK Gopal [id number] Insurance[place] Number: [place] Repository [id number]: (330) Date:2017-12-28 [phone] () 12/22/2017 DEVON L Primary NOT GIVENUNK Beltrami [id number] Insurance[place] Number: [place] Repository [phone]: (330) Date:2017-12-30 [phone] () 12/15/2017 DEVON L Primary NOT GIVENUNK Gopal [id number] Insurance:SELF PA[place] [facility] Number: [place] Repository [phone]: (330) Date:2017-12-09 [phone] () 12/08/2017 DEVON L Primary NOT GIVENUNK Beltrami [id number] Insurance:SELF [place] [facility] Number: [place] Repository [id number]: (330) Date:2017-12-08 [phone] () 11/24/2017 DEVON L Primary NOT GIVENUNK Beltrami [id number] Insurance:SELF [place] [facility] Number: [place] Repository [phone]: (330) Date:2017-11-24 [phone] () 11/14/2017 DEVON L Primary NOT GIVENUNK Beltrami [id number] Insurance:SELF [place] [facility] Number: [place] Repository 11770Ebb: (330) Date:2017-11-14 [phone] () 11/08/2017 DEVON L Primary NOT GIVENUNK Beltrami [id number] Insurance:SELF [place] [facility]: [place] Repository [phone]: (330) Date:2017-11-01 [phone] ()
== END ==
PROVIDERS: Family Provider Family Medicine; PCP Family Medicine; Referring Provider Family Medicine; Visit Provider Family Medicine
DX: E78.5 Hyperlipidemia, unspecified (principal)
CPT/HCPCS: 36415; 80061

== ENCOUNTER 2018-10-12 10:19 | Day surgery (SDC) | payer MEDICAID, SELFPAY ==
[2018-07-25 16:08] VITALS: BMI 38.9
[2018-10-03 15:45] VITALS: BMI 38.9
[2018-10-12 10:52] VITALS: BP 116/78; PULSE 71; RESP 16; TEMP 36.3; O2SAT 96
== END 2018-10-12 11:33 | disposition home or self-care (01) ==
LOC: EN 10:19
PROVIDERS: Family Provider Family Medicine; PCP Internal Medicine; Referring Provider Surgery; Visit Provider Surgery
PROC: F00ZJWZ Instrumental Swallowing and Oral Function Assessment using Swallowing Equipment (ICD-10-PCS; CPT 43235; principal; 2018-10-12 10:25)
DX: R13.10 Dysphagia, unspecified (principal)
CPT/HCPCS: 78258

== ENCOUNTER → 2018-11-21 | Outpatient (CLI) | payer MEDICAID, SELFPAY ==
[2018-10-19 13:09] VITALS: BMI 38.9
[2018-11-21 17:42] LABS: Absolute Lymphocyte Count 2.33 X10^3/ul (0.83-4.51); Absolute Neutrophil Count 5.2 X10^3/uL (2.0-7.7); Basophil# 0.02 X10^3/uL; Basophil% 0.2 % (0-1); Eosinophil# 0.12 X10^3/uL; Eosinophils% 1.5 % (0-5); Hematocrit 43.7 % (37-47); Lymphocyte # 2.33 X10^3/ul (4.0); Lymphocyte % 28.4 % (19-41); Mean Corp Hgb Conc 34.3 g/gl (32-36); Mean Corpuscular Hgb 30.9 pg (27.0-32.0); Mean Corpuscular Volume 90.1 fL (81-99); Mean Platelet Vol. 9.2 fl (6.2-12.0); Monocyte# 0.49 X10^3/uL; Neutrophil # 5.22 X10^3/uL (2.7-7.7); Neutrophil % 63.8 % (47-70); Platelet Count 294 K/mm3 (150-450); RBC Distribution Width CV 13.5 % (11.6-14.6); Red Blood Count 4.85 M/mm3 (4.2-5.4); White Blood Count 8.2 K/mm3 (4.4-11.0)
[2018-11-21 17:46] LABS: POSITIVE COUNT NO; POSITIVE DIFFERENTIAL NO; POSITIVE MORPHOLOGY NO
[2018-11-21 18:02] LABS: Vitamin B12 314 pg/mL (211-911)
[2018-11-21 18:23] LABS: AST(SGOT) 17 U/L (15-37); Alanine Aminotransfer ALT/SGPT 27 U/L (13-56); Albumin, Serum 3.7 g/dL (3.2-5.0); Alkaline Phosphatase 129 U/L (45-117); Anion Gap 7 (5-15); BUN 6 mg/dL (7-18); Chloride 108 mmol/L (98-107); Cholesterol 249 mg/dL (200); Creatinine, Serum 0.75 mg/dL (0.55-1.02); EST Glomerular Filtration Rate 84 mL/min (>60); Est Glom Filt Rate - Afr Amer 102 mL/min (>60); Globulin 3.8 g/dL (2.2-4.2); Glucose 87 mg/dL (74-106); High Density Lipoprotein 49 mg/dL; Potassium 3.8 mmol/L (3.5-5.1); Protein, Total 7.5 g/dL (6.4-8.2); Sodium Level 141 mmol/L (136-145); T4 Free Direct 1.16 ng/dL (0.76-1.46); Thyroid Stim Hormone (TSH) 0.59 uIU/mL (0.358-3.74); Triglycerides 142 mg/dL; Very Low Density Lipoprotein 28 mg/dL (5-40)
[2018-11-27 13:26] LABS: Anti-Thyroglobulin AB < 1.0 IU/mL (0.0-0.9); Thyroid Peroxidase AB 11 IU/mL (0-34); Vitamin B1, Thiamine 140.3 nmol/L (66.5-200.0)
== END | disposition home or self-care (01) ==
PROVIDERS: Family Provider Family Medicine; PCP Internal Medicine; Referring Provider Family Medicine; Visit Provider Family Medicine
DX: J44.9 Chronic obstructive pulmonary disease, unspecified (principal); E78.5 Hyperlipidemia, unspecified; G62.9 Polyneuropathy, unspecified; E01.0 Iodine-deficiency related diffuse (endemic) goiter
CPT/HCPCS: 36415; 80053; 80061; 82607; 84425; 84432; 84439; 84443; 85025; 86376; 86800

== ENCOUNTER → 2018-11-27 14:13 | Outpatient (CLI) | payer MEDICAID, SELFPAY ==
[2018-10-19 13:09] VITALS: BMI 38.9
--- NOTE | 2018-11-27 14:16 | US_ITS ---
STUDY: THYROID ULTRASOUND REASON FOR EXAM: Female, 58 years old. Thyromegaly TECHNIQUE: Ultrasound evaluation of the thyroid was performed with real-time and static holloway-scale imaging. COMPARISON: None. FINDINGS: RIGHT LOBE: The right lobe of the thyroid gland measures 5.0 x 2.1 x 2.1 cm. There is a homogeneous echotexture. There are 3 hypoechoic nodules measuring 0.7 to 1.5 cm. LEFT LOBE: The left lobe of the thyroid gland measures 5.2 x 1.9 x 1.7 cm. There is a homogeneous echotexture. There is a 0.4 cm hypoechoic nodule. ISTHMUS: The isthmus measures 0.3 cm. The regional lymph nodes are normal. US/Thyroid IMPRESSION: Multinodular goiter. Electronically Signed: Mario Alberto Cochran MD at 21:16 EDT , Service support ,
== END ==
PROVIDERS: Family Provider Family Medicine; PCP Family Medicine; Referring Provider Family Medicine; Visit Provider Family Medicine
DX: E01.0 Iodine-deficiency related diffuse (endemic) goiter (principal)
CPT/HCPCS: 76536

== ENCOUNTER → 2018-12-06 | Outpatient (CLI) | payer MEDICAID, SELFPAY ==
[2018-10-19 13:09] VITALS: BMI 38.9
[2018-12-01 15:12] VITALS: BMI 38.9
--- NOTE | 2018-12-06 15:47 | CT_ITS ---
STUDY: CT MAXILLOFACIAL SINUSES REASON FOR EXAM: Female, 58 years old. Facial pain, left greater than right RADIATION DOSAGE (If Supplied By Facility): CTDIvol = ( 33.06 ) mGy, DLP = ( 747.07 ) mGycm TECHNIQUE: The patient was scanned in a multi detector CT scanner. High resolution axial imaging was performed without the administration of intravenous contrast material. Sagittal and coronal images were reconstructed. Individualized dose optimization techniques were used for this CT. COMPARISON: None. FINDINGS: FRONTAL SINUSES: Normal aeration, without mucosal inflammatory disease. ETHMOIDAL SINUSES: Minimal mucoperiosteal thickening MAXILLARY SINUSES: Minimal mucoperiosteal thickening on the right. Bilateral ostiomeatal units are patent. SPHENOIDAL SINUSES: Normal aeration, without mucosal inflammatory disease. There is patency of the bilateral maxillary infundibuli with normal uncinate processes, ethmoid bullae, and hiatus semilunaris. Mild prominence of the turbinate mucosa. Normal midline nasal septum. There is patency of the bilateral nasal airways. The visualized osseous structures are normal. The visualized bilateral orbital contents are normal. CT/Sinus/Facial Bone IMPRESSION: Mild chronic ethmoid and maxillary sinus disease Electronically Signed: Diaz Chew MD at 4:20 EDT Tel , Service support ,
== END | disposition home or self-care (01) ==
LOC: CT 15:46
PROVIDERS: Family Provider Family Medicine; PCP Family Medicine; Referring Provider Otolaryngology; Visit Provider Otolaryngology
DX: R51 Headache (principal)
CPT/HCPCS: 70486

== ENCOUNTER → 2018-12-13 | Outpatient (CLI) | payer MEDICAID, SELFPAY ==
--- NOTE | 2018-12-13 10:00 | FLU_PTH ---
PATIENT: DEVON BARAHONA LOC: [facility] U#:[id number] AGE/SX: 58/F ROOM: RE12/13/[address]: Dr. Jaun Spicer MD : 1960 BED: DIS: 12/13/2018 SPEC #: [id number] RECD: 12/13/18 12:50 STATUS: MARCIA MARELY #: [id number] ANGELINA: 12/13/18 10:[address]: Jaun Spicer DEPT: CYTOLOGY RECD BY: Jennifer Carranza ENTERED: 12/13/18 15:18 SP TYPE: Fluid OTHR DR: Dr. Simone Isidro MD Tissues: A - Thyroid gland, NOS B - Thyroid gland, NOS Procedures: Special Stain Group II Surgery Specimen Level IV Cytospin Fluid Cytology Other HEADER OPERATION: Ultrasound-guided fine needle aspiration right thyroid PRE-OP DIAGNOSIS: Multinodular goiter E04.2 TISSUE SUBMITTED: A - Fine needle aspiration right thyroid for cytology, B - Fine needle aspiration right thyroid slides x12 DIAGNOSIS CYTOLOGY A. Right thyroid nodule, fine needle aspiration (cytospin and cell block): Macrophages consistent with benign cyst contents. B. Right thyroid nodule, fine needle aspiration (smears): Adequate for evaluation. Negative, consistent with cystic colloid/follicular nodule. AM:juju 12/14/18 CYTOLOGY STUDY Slides are reviewed. CYTOLOGY GROSS A - Received is 1 ml of cloudy red fluid labeled with the patient's name and and designated per the requisition as right thyroid. Submitted for cytology preparation including cell block. B - Received are 12 smears labeled with the patient's name and designated per the requisition as right thyroid. Submitted for staining. 12/13/18 TC:5 CPT: 90793, 88777, 94970
[2018-12-13 10:50] VITALS: BMI 38.9
== END | disposition home or self-care (01) ==
LOC: LABSPEC 15:05
PROVIDERS: Family Provider Family Medicine; PCP Family Medicine; Referring Provider Surgery; Visit Provider Surgery
DX: E04.2 Nontoxic multinodular goiter (principal)
CPT/HCPCS: 88108; 88161; 88305; 88313

== ENCOUNTER → 2019-02-15 | Outpatient (CLI) | payer MEDICAID, SELFPAY ==
[2018-12-13 10:50] VITALS: BMI 38.9
--- NOTE | 2019-02-15 14:52 | MRI_ITS ---
STUDY: MRI BRAIN WITH AND WITHOUT CONTRAST REASON FOR EXAM: Female, 58 years old. Left suborbital facial pain x8 years TECHNIQUE: Standardized multiplanar fat and water weighted pulse sequences were obtained. 20 IV Dotarem was administered for the contrast portion of the examination. COMPARISON: May 24, 2018 MR brain FINDINGS: There is mild cerebral atrophy with widening of the extra-axial spaces and ventricular dilatation. There are a limited number of small white matter hyperintensities, distributed throughout the deep white matter tracts of the cerebral hemispheres, consistent with mild chronic white matter ischemic changes. There is no evidence for recent intracranial ischemia or other cause of cytotoxic edema on diffusion weighted imaging (DWI). Focal atrophy left occipital cortex. Normal bilateral basal ganglia. Normal thalami. There is no extra-axial fluid accumulation. Normal flow voids within the major intracranial circulation suggesting patency by spin echo criteria. Normal venous enhancement. There is no enhancing intra-axial or extra-axial abnormality. Normal sella turcica, pituitary gland, infundibular stalk, optic chiasm and hypothalamus. Normal tectal plate and pineal gland. Normal midbrain, alexus and medulla. Normal cerebellum. Normal basal cisterns. Normal bilateral temporal bones. Normal bilateral internal auditory canals. No demonstrated orbital abnormality, within the constraints of a routine brain study. Normal visualized paranasal sinuses. Normal calvarium and skull base. Normal visualized soft tissue structures. Normal visualized upper cervical spine. MRI/Brain W/WO Contrast IMPRESSION: Normal unenhanced and enhanced MRI of the brain. Electronically Signed: Luis F Juarez MD at 16:52 EDT , Service support ,
--- NOTE | 2019-02-15 14:55 | RAD_ITS ---
STUDY: X-RAY - LUMBOSACRAL SPINE REASON FOR EXAM: Female, 58 years old. Low back pain, sciatica. TECHNIQUE: 7 view(s) of the lumbosacral spine were obtained. COMPARISON: None FINDINGS: Normal lumbar lordosis. Mild levoscoliosis. There is normal alignment of the vertebrae. No subluxation on the flexion or extension views to suggest instability. Normal vertebral bodies and endplates. Normal disc space heights. Normal bilateral sacral ala, sacroiliac joints, and visualized sacrum. Normal visualized soft tissue structures. RAD/L/S Spine Comp/w Bending Views IMPRESSION: Mild levoscoliosis. No instability. Electronically Signed: Ant Hairston MD at 15:57 EDT Tel , Service support ,
--- NOTE | 2019-02-15 15:10 | RAD_ITS ---
STUDY: X-RAY - THORACIC SPINE REASON FOR EXAM: Female, 58 years old. Back pain TECHNIQUE: 5 view(s) of the thoracic spine were obtained. COMPARISON: None. FINDINGS: Normal kyphosis of the thoracic spine. Mild dextroscoliosis. Normal thoracic vertebrae and endplates. Normal disc space heights. The soft tissue structures are unremarkable. RAD/Thoracic Spine Min 4 Views IMPRESSION: Mild dextroscoliosis. Electronically Signed: Ant Hairston MD at 15:57 EDT Tel , Service support ,
== END | disposition home or self-care (01) ==
PROVIDERS: Family Provider Family Medicine; PCP Family Medicine; Referring Provider Psychiatry & Neurology Neurology; Visit Provider Psychiatry & Neurology Neurology
DX: M54.6 Pain in thoracic spine (principal); M54.40 Lumbago with sciatica, unspecified side; G50.1 Atypical facial pain
CPT/HCPCS: 70553; 72074; 72114

== ENCOUNTER → 2019-02-27 14:46 | Outpatient (CLI) | payer MEDICAID, SELFPAY ==
[2018-12-13 10:50] VITALS: BMI 38.9
--- NOTE | 2019-02-27 15:10 | RAD_ITS ---
STUDY: X-RAY CHEST REASON FOR EXAM: Female, 58 years old. Productive Cough current smoker TECHNIQUE: PA and lateral views of the chest. COMPARISON: None. FINDINGS: The lungs are hyperinflated. There is a pattern of increased interstitial markings and areas of cystic lucency suggesting emphysematous change chronic obstructive pulmonary disease. There is minimal linear density in the left lung base. There is no demonstrated pleural abnormality. Normal size heart. Normal mediastinum and sera. Normal visualized pulmonary arteries. Normal visualized aortic arch and descending thoracic aorta. Normal visualized thoracic spine. Normal visualized ribs, clavicles, and shoulders. There is no demonstrated abnormality of the visualized soft tissue structures of the upper abdomen. RAD/Chest PA and Lateral IMPRESSION: Findings are most consistent with chronic obstructive pulmonary disease. Trace left pleural atelectasis and/or scarring. Electronically Signed: Sharon Yost MD at 16:12 EDT Tel , Service support ,
[2019-02-27 15:39] LABS: Cholesterol 214 mg/dL (200); High Density Lipoprotein 58 mg/dL; Triglycerides 131 mg/dL; Very Low Density Lipoprotein 26 mg/dL (5-40)
== END ==
PROVIDERS: Family Provider Family Medicine; PCP Family Medicine; Referring Provider Family Medicine; Visit Provider Family Medicine
DX: E78.5 Hyperlipidemia, unspecified (principal); J31.0 Chronic rhinitis; R05 Cough
CPT/HCPCS: 36415; 71046; 80061; 87070; 87077; 87186; 87205

== ENCOUNTER 2019-03-09 11:58 | Emergency (ER) | payer MEDICAID, SELFPAY ==
[2018-12-13 10:50] VITALS: BMI 38.9
[2019-03-09 11:59] VITALS: BP 156/85; PULSE 89; RESP 16; TEMP 36.1; O2SAT 98; BMI 38.9
[2019-03-09] MEDS: Ondansetron ODT 4 MG Tablet PO (12:18)
[2019-03-09] MEDS: HYDROmorphone 1 MG/ML Syringe IM (12:19)
--- NOTE | 2019-03-09 12:27 | RAD_ITS ---
STUDY: X-RAY - LEFT ANKLE REASON FOR EXAM: Pain, worse at the lateral aspect status post fall. TECHNIQUE: 3 view(s) of the ankle. COMPARISON: None. FINDINGS: Normal visualized distal tibia. There is a nondisplaced oblique fracture of the distal fibular diametaphysis. Normal tibiotalar articulation and ankle mortise. Normal visualized talus. There is a small plantar calcaneal enthesophyte. The visualized subtalar, talonavicular, calcaneocuboid and tarsal articulations are normal. There is soft tissue swelling overlying the lateral malleolus. RAD/Ankle min 3 Views IMPRESSION: Distal fibular fracture. Electronically Signed: Luis Fernando De La Cruz MD at 12:57 EDT Tel , Service support ,
--- NOTE | 2019-03-09 12:29 | ED.VIS.INJ ---
History of Present Illness Chief Complaint: Lower Extremity Injury Informant: Patient Onset: Today Quality of Pain: Dull, Aching, Throbbing Location: Lateral left ankle Current Severity: Mild Maximum Severity: Severe Worsened by: Attempt to weight-bear Relieved by: Resting with leg elevated Narrative: Patient is a middle-age woman who presents because of injury to right ankle. Foot 1 and whole. She states she heard a pop and snap. She was unable to bear weight afterwards. She denies prior injury. She informed the nurse with movement of her right ankle she also has discomfort. She denies paresthesia, anesthesia buttocks. She denies any other symptoms. Tetanus Immunization: 5-10 years Prior similar symptoms: No Recent Illness/Hospitalization: No - Past Medical History (1) GERD (gastroesophageal reflux disease) Status: Chronic Comment: Patient has a long history of esophageal reflux she takes Nexium and the prescription has gone through (2) Hirsutism Status: Chronic (3) Radicular low back pain Status: Chronic Comment: She complains of what she describes as sciatica she does have bilateral radicular leg pain but there is nothing on examination that would make me suspicious of sciatica. (4) Recurrent herpes simplex Status: Chronic Comment: Patient has a history of recurrent herpes simplex she uses Zovirax cream but she wonders if she can get on an oral medication to prevent these problems rather than treat them after they occur. Past Medical History - Allergies and Home Meds Allergies/Adverse Reactions: Allergies aloe vera Allergy (Verified 12/13/18 10:20) Other ARANA SKIN doxycycline Allergy (Verified 12/13/18 10:20) Other SEVERE YEAST INFECTION hydrocodone bitartrate [From Vicodin] Allergy (Verified 12/13/18 10:20) Upset Stomach oxycodone HCl [From Percocet] Allergy (Verified 12/13/18 10:20) Other HALUCINATE propoxyphene HCl [From Darvon] Allergy (Verified 12/13/18 10:20) Vomiting Primary Care Physician: Simone Isidro MD [Primary Care Provider] - Prior records reviewed: Yes Surgical History: noncontributory Lives: Spouse/ Significant Other Smoking Status: Current every day smoker Alcohol: Rare Drugs: None Review of Systems Cardiovascular: Denies: Chest pain Respiratory: Denies: Dyspnea Musculoskeletal: Reports: Swelling - Left ankle, Extremity Pain - Right and left ankle. Denies: Myalgias, Arthralgias, Neck pain, Back pain Skin: Denies: Rash, Abscess, Abrasions, Wounds Neurological: Denies: Headache, Weakness, Parasthesia, Numbness, -, - Hematologic: Denies: Easy bruising, Easy bleeding Allergy: Denies: Uticaria, Swelling of the mouth Physical Exam Vital Signs/Narrative: Vital Signs Temp Pulse Resp BP Pulse Ox 03/09/19 11:59 97 F L 89 16 156/85 H 98 Inital Vital Signs reviewed: Yes General: Well nourished, Well developed Head: Normocephalic, Atraumatic Eyes: Perrl, EOMI. Negative for: Pale conjunctiva, Scleral icterus, - Cardiovascular: Regular rate, Regular rhythm Respiratory: No distress Extremeties: There is soft tissue swelling with pain to palpation distal 4 cm lateral malleolus posteriorly. There is no laxity with drawer testing. There is no pain the patient the base of the fifth metatarsal or over the medial malleolus. DP and PT pulses are palpable. There is no evidence of trauma to the toes. Examination right ankle reveals no swelling or evidence of trauma there is no pain the patient over the lateral or medial malleolus. No laxity with drawer testing. There is no pain the patient of the calcaneus either. Told per the Andreafski ankle rule imaging of the right ankle is not indicated. Skin: Normal color, Trauma Neurological: Alert, Oriented x3, Cranial nerves II-XII grossly intact, Normal Strength. Negative for: Normal Gait Psychological: Normal affect, Normal Mood - Glascow Coma Scale Eye Opening: Spontaneous Motor: Extensor Response Verbal: Oriented Coma Scale Total: 11 Diagnostic/Tx/Re-eval Chest X-Ray - ED: Read by ED Physician - Medical Decision Making She was medicated with hydrocodone and Zofran. She received Zofran because she reports nausea with [place]. X-ray was obtained of the left ankle since she has pain posteriorly and unable to weight-bear. Previously documented imaging of the right ankle is not indicated per the Andreafski ankle rule Reveals a nondisplaced spiral fracture distal left lateral malleolus at the joint line. Since patient unable to ambulate will place in splint with crutches and referred to Dr. Lam Rosario. Patient was placed in a short leg posterior fiberglass splint. Splint was fabricated by me. She was made nonweightbearing. Procedures - Lower Extremity Splints Lower Extremity Splint: Orthoglass, - - Short leg posterior Splint Fabrication: Fabricated Location: Left ED Disposition - Plan for ED Patient: Disposition: Home or Assisted Living Diagnosis: Fracture of fibula, distal, left, closed Instructions: ANKLE FRACTURE (Distal Fibula), closed Prescriptions: Hydrocodone Bitart/Apap 5-325 [[place] 5MG-325MG] 1 tablet PO Q6H PRN PRN 3 Days #10 tablet PRN Reason: Pain Transmission Status: Sent to [facility] Ondansetron [Zofran Odt] 4 mg PO Q8H PRN PRN #10 tab PRN Reason: Nausea Transmission Status: Pending to [facility] Referrals: Simone Isidro MD [Primary Care Provider] - Lam Rosario DO [STAFF PHYSICIAN] - 5-7 Days Additional Instructions: Your prescriptions were electronically transmitted to designated pharmacy of choice, [facility] Ankle above your nose for the next 2 to 3 days. Apply ice 20 to 30 minutes per application 6-8 times a day. You are not permitted to put weight on your left foot. You must keep splint absolutely clean and dry.
[2019-03-09 15:25] VITALS: RESP 16
--- NOTE | 2019-03-09 15:28 | ED.RN ---
REVIEWED D/C INSTRUCTIONS, CRUTCH USAGE, PRESCRIPTIONS, S/S THAT WOULD WARRANT A RETURN TO THE ED, AND FOLLOW UP CARE WITH PT. PT VERBALIZED AN UNDERSTANDING AND DENIES FURTHER QUESTIONS FOR THIS RN. PT SKIN P/W/D, RESP EVEN AND UNLABORED, PT A&O X 3, NO DISTRESS NOTED. PT ASSISTED OUT OF ED IN WHEELCHAIR.
== END 2019-03-09 15:30 | disposition home or self-care (01) ==
PROVIDERS: Emergency Provider Emergency Medicine; Family Provider Family Medicine; PCP Family Medicine
DX: S82.435A Nondisplaced oblique fracture of shaft of left fibula, initial encounter for closed fracture (principal); K21.9 Gastro-esophageal reflux disease without esophagitis; F17.200 Nicotine dependence, unspecified, uncomplicated; Z79.899 Other long term (current) drug therapy; X58.XXXA Exposure to other specified factors, initial encounter; Y93.89 Activity, other specified; Y92.89 Other specified places as the place of occurrence of the external cause; Y99.8 Other external cause status
CPT/HCPCS: 29515; 73610; 96372; 99284

== ENCOUNTER → 2019-04-18 | Outpatient (CLI) | payer MEDICAID, SELFPAY ==
--- NOTE | 2019-04-18 14:57 | RAD_ITS ---
STUDY: X-RAY - RIGHT KNEE REASON FOR EXAM: Female, 58 years old. Right knee pain secondary to a fall. TECHNIQUE: 4 view(s) of the knee. COMPARISON: None. FINDINGS: Normal visualized distal femur. Normal visualized proximal tibia and fibula. Normal proximal tibiofibular articulation. Normal medial femorotibial compartment. Normal lateral femorotibial compartment. Normal patellofemoral articulation. The soft tissue structures are unremarkable. RAD/Knee 4 or More Views IMPRESSION: Normal x-ray examination of the knee. Electronically Signed: Klaus Bergman, at 15:38 EDT , Service support ,
== END | disposition home or self-care (01) ==
LOC: MTRAD 14:55
PROVIDERS: Family Provider Family Medicine; PCP Family Medicine; Referring Provider Family Medicine; Visit Provider Family Medicine
DX: M25.561 Pain in right knee (principal)
CPT/HCPCS: 73564

== ENCOUNTER 2019-05-16 14:32 | Observation (INO) | payer MEDICAID, SELFPAY ==
[2019-05-16] VITALS (9 sets, daily range): BP systolic 133–197; BP diastolic 75–107; PULSE 95–124; RESP 16–24; TEMP 36.6–37.6; O2SAT 85–98; BMI 40.7
--- NOTE | 2019-05-16 15:44 | CT_ITS ---
We are attempting to reach an attending provider to discuss findings. An addendum with communication details will be sent when the communication is complete. STUDY: CT ABDOMEN AND PELVIS WITH CONTRAST REASON FOR EXAM: Female, 58 years old. Pain RADIATION DOSAGE (If Supplied By Facility): DLP = ( 1293.16 ) mGycm TECHNIQUE: Transaxial images were obtained from the dome of the diaphragm to the symphysis pubis with oral contrast. 100ml ml of Isovue 370 contrast was administered. Sagittal and coronal images were reconstructed. Individualized dose optimization techniques were used for this CT. COMPARISON: CT abdomen and pelvis July 05, 2018 FINDINGS: Bibasilar atelectasis is present. The visualized portions of the heart and pericardium are within normal limits. There are no calcified gallstones present. The liver is within normal limits. Scattered hepatic cysts are present. There are no suspicious hepatic lesions. The spleen is normal in size. The pancreas is within normal limits. The adrenal glands are within normal limits. There are no obstructing renal stones. There is no hydronephrosis. There are no focal renal lesions. Normal visualized stomach. There is no bowel obstruction. There is marked enlargement of the appendix with wall thickening and adjacent inflammatory changes and mild adjacent free fluid. The aorta is normal in caliber. There is no abdominal or pelvic free air, fluid collection or lymphadenopathy. There are no destructive osseous lesions. CT/Abdomen/Pelvis WITH Contrast IMPRESSION: Acute appendicitis with features described above. Electronically Signed: Osmin Lizarraga, at 18:02 EDT Tel , Service support ,
--- NOTE | 2019-05-16 15:46 | ED.DCSUM_ITS ---
- ER Visit Summary Date of Service: 05/16/19 Chief Complaint: Abdominal pain History of Present Illness: The patient is a 58 F presenting with abdominal pain. She states this started last night. She complains of nausea with no vomiting. She has had constipation. She did have a bowel movement yesterday. She has had subjective fever and chills at home. She has not had these symptoms in the past. Denies other complaints. Physical Examination: Vitals are stable. Patient is afebrile. Alert no acute distress. HEENT exam is unremarkable. Neck is supple. Lungs are clear and equal bilaterally. Heart is regular rate and rhythm. Abdomen is soft diffuse tenderness with voluntary guarding, no rebound Extremities are unremarkable. Skin is warm and dry. No focal neurologic deficit. Remainder of exam is unremarkable. Emergency Department Course and Treatment: Patient was given morphine, Zofran IV. CBC shows white count 22.1. Chemistries unremarkable other than glucose 128. Alk phos 145, lipase is normal. Lactic acid 1.2. CT abdomen pelvis shows acute appendicitis. Patient was given Zosyn IV. Discussed with Dr. Najera. Patient will be taken to the operating room. Disposition: To OR Impression: Acute appendicitis This note was generated with [employer] dictation software. It may contain incorrect words, spelling, and punctuation that were not noted in review of the chart prior to signing ED Disposition - Plan for ED Patient: Referrals: Simone Isidro MD [Primary Care Provider] -
[2019-05-16] MEDS: Morphine 2 MG/ML Syringe IV (15:58)
[2019-05-16] MEDS: Ondansetron 4 MG/2 ML Vial IV (15:58)
[2019-05-16 16:01] LABS: Absolute Lymphocyte Count 1.25 X10^3/uL (0.83-4.51); Absolute Neutrophil Count 19.6 X10^3/uL (2.0-7.7); Basophil# 0.04 X10^3/uL; Basophil% 0.2 % (0-1); Hemoglobin 15.3 g/dL (12.0-15.0); Lymphocyte # 1.25 X10^3/ul (4.0); Lymphocyte % 5.6 % (19-41); Mean Corp Hgb Conc 34.8 g/dL (32-36); Mean Corpuscular Hgb 31.5 pg (27.0-32.0); Mean Corpuscular Volume 90.5 fL (81-99); Mean Platelet Vol. 8.9 fl (6.2-12.0); Monocyte# 1.14 X10^3/uL; Monocyte% 5.2 % (0-10); NRBC Flagged by Analyzer 0 % (0-5); Neutrophil # 19.55 X10^3/uL (2.7-7.7); Neutrophil % 88.3 % (47-70); Platelet Count 287 K/mm3 (150-450); RBC Distribution Width CV 12.3 % (11.6-14.6); RBC Distribution Width SD 40.6 fl (35.1-43.9); Red Blood Count 4.86 M/mm3 (4.2-5.4); White Blood Count 22.1 K/mm3 (4.4-11.0)
[2019-05-16 16:13] LABS: ALB/GLOB Ratio 0.9 RATIO (0.9-2.4); AST(SGOT) 13 U/L (15-37); Alanine Aminotransfer ALT/SGPT 22 U/L (13-56); Albumin, Serum 3.6 g/dL (3.2-5.0); Alkaline Phosphatase 145 U/L (45-117); Anion Gap 8 (5-15); BUN 6 mg/dL (7-18); BUN/Creat Ratio 8.7 RATIO (10-20); Calcium,Total 9.1 mg/dL (8.5-10.1); Chloride 104 mmol/L (98-107); Creatinine, Serum 0.69 mg/dL (0.55-1.02); EST Glomerular Filtration Rate 92 mL/min (>60); Est Glom Filt Rate - Afr Amer 111 mL/min (>60); Estimated Creatinine Clearance 72.62 ml/min; Globulin 4.1 g/dL (2.2-4.2); Glucose 128 mg/dL (74-106); Lipase 49 U/L (73-393); Potassium 3.9 mmol/L (3.5-5.1); Protein, Total 7.7 g/dL (6.4-8.2); Sodium Level 137 mmol/L (136-145)
[2019-05-16 16:34] LABS: Lactic Acid 1.2 mmol/L (0.4-2.0)
[2019-05-16] MEDS: Morphine 4 MG/ML Syringe IV (17:05)
[2019-05-16 17:31] LABS: Bacteria 0 SEEN /hpf (None Seen); Mucous, Urine 0 SEEN /hpf (<or=2+); Red Blood Cells-Urine 0 SEEN /hpf (0-5); Squamous Epithelial Cells - UA 0 SEEN /hpf (5-10); White Blood Cells 0 SEEN /hpf (0-5)
[2019-05-16 17:39] LABS: Color, Urine Yellow (Yellow); Glucose, Dipstick 50 mg/dl (Normal); Ketone-Dipstick Negative (Negative); Leukocyte Esterase-Dipstick Negative /ul (Negative); Nitrite-Dipstick Negative (Negative); Occult Blood-Urine Negative /ul (Negative); Protein-Dipstick Negative (Negative); Specific Gravity, Urine 1.015 (1.002-1.030); Urine Bilirubin Dipstick Negative (Negative); Urine Clarity Clear (Clear); Urine Urobilinogen Normal (Normal)
--- NOTE | 2019-05-16 18:50 | HP.PCM_ITS ---
History of Present Illness Date of Admission: 05/16/19 The patient is a 58 year old F presented to the ER due to right lower quadrant pain which started about 11 AM this morning. Patient states that since last night she has felt kind diffuse abdominal pain with bloating. Patient did have some nausea before coming to the ER did not have any vomiting but has not eaten today. Patient's last bowel movement was yesterday and it was normal. Patient CT abdomen pelvis which showed acute appendicitis. Patient did have white blood cell count of 22. Patient was given Zosyn 4.5 g IV x1 in the ER. Patient's most recent colonoscopy was about 2 years ago. Patient does state after anesthesia in 2012 for a bladder sling she had a stroke she had left facial droop as well as numbness under her jaw and unable to taste with her tongue and this did resolve but it took about a year and a half. Past Medical History Past Medical History (Chronic Problems): Chronic Problems (Last Reviewed 03/06/19 @ 13:48 by Nichole Yousif) Hirsutism (Chronic) Hyperhidrosis (Chronic) Patient has hyperhidrosis she has a long history of excessive sweating. Recurrent herpes simplex (Chronic) Patient has a history of recurrent herpes simplex she uses Zovirax cream but she wonders if she can get on an oral medication to prevent these problems rather than treat them after they occur. Bilateral headaches (Chronic) She claims she has bilateral stabbing headaches basically bitemporal headache s that are very severe but she is had them for a long period of time. MRI was ordered as she has not had any immaging studies Pain in left lower leg (Chronic) Couple of months ago she ran into a railing with her left leg, x-rays have been normal. Radicular low back pain (Chronic) She complains of what she describes as sciatica she does have bilateral radicular leg pain but there is nothing on examination that would make me suspicious of sciatica. GERD (gastroesophageal reflux disease) (Chronic) Patient has a long history of esophageal reflux she takes Nexium and the prescription has gone through Abdominal bloating with cramps (Chronic) Patient has a long-standing history of bloating after she eats, all of her blood work was normal, will try her on creon, and see if that helps Medical History: Medical History (Last Reviewed 03/06/19 @ 13:48 by Nichole Yousif) Abnormal colonoscopy R93.3 adenoma, 2016, repeat in 3 years Acute asthma J45.909 Arthritis M19.90 Carpal tunnel syndrome G56.00 Environmental allergies Z91.09 GERD (gastroesophageal reflux disease) K21.9 High cholesterol E78.00 High triglycerides E78.1 History Valvular Surgery History of cancer of vulva Z85.44 Hx TIA/stroke w/o resid Z86.73 Hx of colon cancer, stage I Z85.038 IBS (irritable bowel syndrome) K58.9 Sleep apnea G47.30 Seasonal allergies J30.2 Allergies aloe vera Allergy (Verified 05/16/19 14:34) Other ARANA SKIN doxycycline Allergy (Verified 05/16/19 14:34) Other SEVERE YEAST INFECTION hydrocodone bitartrate [From Vicodin] Allergy (Verified 05/16/19 14:34) Upset Stomach oxycodone HCl [From Percocet] Allergy (Verified 05/16/19 14:34) Other HALUCINATE propoxyphene HCl [From Darvon] Allergy (Verified 05/16/19 14:34) Vomiting levofloxacin [From Levaquin] Adverse Reaction (Verified 05/16/19 14:35) Diarrhea Home Medications: Ambulatory Orders Medication Instructions Recorded esomeprazole magnesium 20 mg 20 mg PO BID #180 cap 10/03/18 capsule,delayed release Buspirone HCl 1 mg PO DAILY 03/09/19 Ondansetron [Zofran Odt] 4 mg PO Q8H PRN PRN #10 tab 03/09/19 Rosuvastatin Calcium 10 mg PO DAILY 03/09/19 lipase/protease/amylase [Creon DR 2 cap PO TID 03/09/19 3,000 Unit Capsule] gabapentin 300 mg capsule 300 mg PO Q8H #90 cap 03/22/19 Cyclobenzaprine HCl 5 mg PO QHS 05/16/19 Surgical History: Surgical History (Last Reviewed 03/06/19 @ 13:48 by Nichole Yousif) History of bladder surgery Z98.890 History of breast surgery Z98.890 History of cardiac cath Z98.890 due to false positive on stress test History of carpal tunnel release Z98.890 History of cataract surgery Z98.49 History of cornea transplant Z94.7 History of esophagogastroduodenoscopy (EGD) Z98.890 2013 History of esophagogastroduodenoscopy (EGD) Onset Date: ~07/05/18 Z98.890 History of nasal septoplasty Z98.890 History of partial hysterectomy Z90.711 S/P colonoscopy Onset Date: ~07/05/18 Z98.890 history of bladder sling Surgical History: noncontributory Smoking Status: Current every day smoker Tobacco Use: Cigarettes Review of Systems Constitutional: Reports: Anorexia. Denies: Fever Eyes: Denies: Blurred vision Cardiovascular: Denies: Chest Pain Gastrointestinal: Reports: Abdominal Pain, Nausea. Denies: Vomiting VTE Information - Inpt Only VTE Present on Admission: Yes VTE Mechan Device Prophylaxis: SCD's - Physical Exam Vitals/I&O's: Vital Signs Temp Pulse Resp BP Pulse Ox 99.1 F 124 H 19 H 190/107 H 96 05/16/19 18:29 05/16/19 18:29 05/16/19 18:29 05/16/19 18:29 05/16/19 18:29 Oxygen Flow Rate (L/min) 2 Oxygen Delivery Method Nasal Cannula Weight: 230 lb Body Mass Index (BMI) 40.7 General: Alert, Oriented x3, Cooperative, No apparent distress HEENT: Atraumatic Lungs: Normal air movement Abdomen: Soft, Non-Distended, Tender - Diffusely, positive Rovsing, increase tenderness to palpation in the right lower quadrant, positive rebound, voluntary guarding Extremities: No clubbing, No cyanosis Neurological: Cranial nerves II-XII grossly intact Psych/Mental Status: Normal Affect Laboratory Results 05/16/19 15:25: WBC 22.1 H, RBC 4.86, Hgb 15.3 H, Hct 44.0, MCV 90.5, MCH 31.5, MCHC 34.8, RDW Std Deviation 40.6, RDW Coeff of Kayla 12.3, Plt Count 287, MPV 8.9, Immature Gran % (Auto) 0.700, Neut % (Auto) 88.3 H, Lymph % (Auto) 5.6 L, [place]lin % (Auto) 5.2, Eos % (Auto) 0.0, Baso % (Auto) 0.2, Absolute Neuts (auto) 19.6 H, Absolute Lymphs (auto) 1.25, Nucleated RBC % 0 05/16/19 15:25: Sodium 137, Potassium 3.9, Chloride 104, Carbon Dioxide 25.0, Anion Gap 8, BUN 6 L, Creatinine 0.69, Estim Creat Clear Calc 72.62, Est GFR (MDRD) Af Amer 111, Est GFR (MDRD) Non-Af 92, BUN/Creatinine Ratio 8.7 L, Glucose 128 H, Calcium 9.1, Total Bilirubin 0.70, AST 13 L, ALT 22, Alkaline Phosphatase 145 H, Total Protein 7.7, Albumin 3.6, Globulin 4.1, Albumin/Globulin Ratio 0.9, Lipase 49 L 05/16/19 16:00: Lactic Acid 1.2 05/16/19 17:27: Urine Color Yellow, Urine Clarity Clear, Urine pH 8.0, Ur Specific [place] 1.015, Urine Protein Negative, Urine Glucose (UA) 50 H, Urine Ketones Negative, Urine Occult Blood Negative, Urine Nitrite Negative, Urine Bilirubin Negative, Urine Urobilinogen Normal, Ur Leukocyte Esterase Negative, Urine RBC 0 SEEN, Urine WBC 0 SEEN, Ur Squamous Epith Cells 0 SEEN, Urine Bacteria 0 SEEN, Urine Mucus 0 SEEN Assessment/Plan All Active Problems (Last Reviewed 03/06/19 @ 13:48 by Nichole Yousif) Segmental and somatic dysfunction of cervical region (Acute) Segmental and somatic dysfunction of pelvic region (Acute) Segmental and somatic dysfunction of thoracic region (Acute) Segmental and somatic dysfunction of lumbar region (Acute) 58-year-old female with acute appendicitis 1. Discussed procedure laparoscopic appendectomy, possible open, possible bowel resection along with the risk but not limited to bleeding, infection/abscess, injury to another organ (small bowel, colon, etc.), adhesion, hernia at incision sites, and anesthesia. Mirela Pugh M.D. Pager: [phone] [facility] [address] [place] [address], [address] [place] [id number] Office: [phone]
--- NOTE | 2019-05-16 19:30 | APP_PTH ---
PATIENT: DEVON BARAHONA LOC: MS3 U#:[id number] AGE/SX: 58/F ROOM: MS314 RE05/16/[address]: Dr. Mirela Pugh MD : 1960 BED: 1 DIS: 05/17/2019 SPEC #: [id number] RECD: 05/17/19 08:28 STATUS: MARCIA REQ #: [id number] ANGELINA: 05/16/19 19:[address]: Mirela Pugh DEPT: SURGICAL PATHOLOGY RECD BY: Juan Nguyen ENTERED: 05/17/19 08:57 SP TYPE: APPENDIX OTHR DR: Dr. Simone Isidro MD Tissues: Appendix, NOS Procedures: Surgery Specimen Level III HEADER OPERATION: Laparoscopic appendectomy PRE-OP DIAGNOSIS: Acute appendicitis TISSUE SUBMITTED: Appendix MICROSCOPIC DIAGNOSIS Appendix: Acute appendicitis and periappendicitis. SJ:juju 05/18/19 MICROSCOPIC DESCRIPTION Slides are reviewed. GROSS DESCRIPTION Received is one container labeled with the patient's name and designated appendix. The specimen consists of a J-shaped appendix measuring 13 cm in length and up to 2 cm in diameter. The attached periappendiceal adipose tissue measures up to 3 cm in width. No obvious perforation is identified. The serosa is covered with fibrinous exudate. Sections reveal dilated lumen filled with fecal material with a focal area of solid fecal material. No fecalith is identified. The specimen gross is reviewed along with surgeon. Oxygraph Operator sections are submitted in two cassettes. / MAXIMO:juju 05/17/19 TC:2 CPT: 54469, 79896
[2019-05-16] MEDS: Bupivacaine Mpf 0.5% 30 ML VIAL (20:45)
--- NOTE | 2019-05-16 20:53 | PCM.OPRPT ---
Report of Operation Date of Procedure: 05/16/19 Pre-Operative Diagnosis: Acute appendicitis Post-Operative Diagnosis: Same Surgery/Procedure Performed:: Laparoscopic appendectomy Type of Anesthesia:: General/Supplemental Anesthesiologist: Mahesh Krishna Special Medications: Zosyn 3.375 g IV x1 given in the ER for acute appendicitis Specimen's removed: Appendix Estimated Blood Loss (mL): 10 cc Fluids Replaced: 600 cc Description of Procedure: Indications: 58-year-old female presented to the ER with new right lower quadrant pain this morning. On workup she was found to have acute appendicitis on CT and a leukocytosis of the 22. Patient was started on antibiotics in the ER for acute appendicitis-Zosyn 3.375 g IV x1 Description of the procedure: The patient was placed on operating table in supine position. General anesthesia was induced. A timeout was completed verifying correct patient, procedure, position and special equipment prior to beginning procedure. A Servin catheter was placed. Abdomen was prepped and draped in usual sterile fashion. Incision was made in the natural skin line above the umbilicus with a 15 blade scalpel. The fascia was elevated and incised. Entry into the peritoneum was confirmed visually and no bowel was noted in the vicinity of the incision. The Peters trocar was placed under direct vision. Abdomen insufflated with a pressure of 12-15 mmHg. Patient tolerated insertion well. The scope was inserted and the abdomen inspected. No injuries from initial trocar placement were noted. The appendix was inflamed and enlarged. Small amount amount of cloudy fluid was seen in the right lower quadrant. An direct visualization 2 -5 mm trocars were placed one above the symphysis pubis and below the hairline and one in the left lower quadrant lateral to the rectus muscle. Care is taken to avoid injury to the bladder and inferior epigastric vessels. The table was placed in Trendelenburg position with the right side elevated. The appendix was grasped with atraumatic grasper and elevated. It was noted to be inflamed and dilated. A window was developed in the mesoappendix at the point between the base of the appendix and the cecum. An endoscopic 45 mm linear cutting stapler blue load was then used to divide and staple the base of the appendix. The mesoappendix was divided with the Enseal. The appendix was withdrawn into the Peters trocar after being placed endoscopically retrieval bag. Appendix was sent to pathology. The appendiceal stump was then irrigated and hemostasis was assured. Fluid was suctioned no other pathology was identified. Secondary trochars were removed under direct visualization. No bleeding was noted trocar sites. The laparoscope withdrawn and the umbilical trocar removed. The abdomen was allowed to collapse. Local anesthesia of 29 mL of 0.5% Marcaine was used at the incision sites. The umbilical trocar site was closed with the [id number] 0 Vicryl suture. The skin was closed up to clear sutures of 4-0 Monocryl and Steri-Strips. The patient was extubated. The patient tolerated the procedure well and was taken to the postanesthesia care unit in satisfactory condition. - Complications none
[2019-05-16] MEDS: Gabapentin 300 MG Capsule PO (23:57)
[2019-05-16] MEDS: Ketorolac 15 MG/ML Vial IV (23:57)
[2019-05-16] MEDS: 0.9% Normal Saline 1,000 ML 125 ML IV (23:58)
[2019-05-16] MEDS: Acetaminophen 325 MG Tablet 650 MG PO (23:58)
[2019-05-16] MEDS: cycloBENZAPRine HCl 5 MG TABLET PO (23:58)
[2019-05-17 00:45] VITALS: BP 125/76; PULSE 112; RESP 16; TEMP 36.7; O2SAT 96
[2019-05-17 02:45] VITALS: BP 127/77; PULSE 102; RESP 16; TEMP 36.7; O2SAT 96
[2019-05-17] MEDS: Gabapentin 300 MG Capsule PO (05:16)
[2019-05-17 05:44] LABS: Absolute Lymphocyte Count 1.98 X10^3/uL (0.83-4.51); Absolute Neutrophil Count 13.5 X10^3/uL (2.0-7.7); Basophil# 0.06 X10^3/uL; Basophil% 0.4 % (0-1); Hemoglobin 13.4 g/dL (12.0-15.0); Lymphocyte # 1.98 X10^3/ul (4.0); Lymphocyte % 11.6 % (19-41); Mean Corp Hgb Conc 33.5 g/dL (32-36); Mean Corpuscular Hgb 31.5 pg (27.0-32.0); Mean Corpuscular Volume 93.9 fL (81-99); Mean Platelet Vol. 8.7 fl (6.2-12.0); Monocyte# 1.41 X10^3/uL; Monocyte% 8.3 % (0-10); NRBC Flagged by Analyzer 0 % (0-5); Neutrophil # 13.46 X10^3/uL (2.7-7.7); Neutrophil % 79.2 % (47-70); Platelet Count 268 K/mm3 (150-450); RBC Distribution Width CV 12.8 % (11.6-14.6); RBC Distribution Width SD 43.8 fl (35.1-43.9); Red Blood Count 4.26 M/mm3 (4.2-5.4)
[2019-05-17 06:15] LABS: Anion Gap 6 (5-15); BUN 8 mg/dL (7-18); BUN/Creat Ratio 10.2 RATIO (10-20); Calcium,Total 8.2 mg/dL (8.5-10.1); Chloride 110 mmol/L (98-107); Creatinine, Serum 0.78 mg/dL (0.55-1.02); EST Glomerular Filtration Rate 80 mL/min (>60); Est Glom Filt Rate - Afr Amer 97 mL/min (>60); Estimated Creatinine Clearance 64.24 ml/min; Glucose 117 mg/dL (74-106); Potassium 3.7 mmol/L (3.5-5.1); Sodium Level 141 mmol/L (136-145)
[2019-05-17 07:26] VITALS: O2SAT 96
[2019-05-17] MEDS: Acetaminophen 325 MG Tablet 650 MG PO (07:58)
--- NOTE | 2019-05-17 08:13 | PCM.PN.SRG ---
Subjective: Patient's right lower quadrant pain has resolved patient does have soreness at incisions, still on 2 L nasal cannula, patient denies any flatus - Physical Exam Vitals/I&O's: Vital Signs Temp Pulse Resp BP Pulse Ox 98.0 F 102 H 16 127/77 H 96 05/17/19 02:45 05/17/19 02:45 05/17/19 02:45 05/17/19 02:45 05/17/19 02:45 Oxygen Flow Rate (L/min) 2 Oxygen Delivery Method Nasal Cannula Weight: 230 lb Body Mass Index (BMI) 40.7 Intake and Output for Last 24 Hours 05/15/19 05/16/19 05/17/19 23:59 23:59 23:59 Intake Total 50 / 400 1520.42 / 1520.42 Output Total 175 / 675 1100 / 1100 Balance -125 / -275 420.42 / 420.42 General: Alert, Oriented x3, Cooperative, No apparent distress Lungs: Normal air movement Cardiovascular: Regular rate Abdomen: Soft, Non-Distended, Tender - Near incisions, incisions clean dry and intact, no peritoneal signs Extremities: - - Air boot on the left foot, no edema on the right Laboratory Results 05/16/19 15:25: WBC 22.1 H, RBC 4.86, Hgb 15.3 H, Hct 44.0, MCV 90.5, MCH 31.5, MCHC 34.8, RDW Std Deviation 40.6, RDW Coeff of Kayla 12.3, Plt Count 287, MPV 8.9, Immature Gran % (Auto) 0.700, Neut % (Auto) 88.3 H, Lymph % (Auto) 5.6 L, [place] % (Auto) 5.2, Eos % (Auto) 0.0, Baso % (Auto) 0.2, Absolute Neuts (auto) 19.6 H, Absolute Lymphs (auto) 1.25, Nucleated RBC % 0 05/16/19 15:25: Sodium 137, Potassium 3.9, Chloride 104, Carbon Dioxide 25.0, Anion Gap 8, BUN 6 L, Creatinine 0.69, Estim Creat Clear Calc 72.62, Est GFR (MDRD) Af Amer 111, Est GFR (MDRD) Non-Af 92, BUN/Creatinine Ratio 8.7 L, Glucose 128 H, Calcium 9.1, Total Bilirubin 0.70, AST 13 L, ALT 22, Alkaline Phosphatase 145 H, Total Protein 7.7, Albumin 3.6, Globulin 4.1, Albumin/Globulin Ratio 0.9, Lipase 49 L 05/16/19 16:00: Lactic Acid 1.2 05/16/19 17:27: Urine Color Yellow, Urine Clarity Clear, Urine pH 8.0, Ur Specific [place] 1.015, Urine Protein Negative, Urine Glucose (UA) 50 H, Urine Ketones Negative, Urine Occult Blood Negative, Urine Nitrite Negative, Urine Bilirubin Negative, Urine Urobilinogen Normal, Ur Leukocyte Esterase Negative, Urine RBC 0 SEEN, Urine WBC 0 SEEN, Ur Squamous Epith Cells 0 SEEN, Urine Bacteria 0 SEEN, Urine Mucus 0 SEEN 05/17/19 05:20: WBC 17.0 H, RBC 4.26, Hgb 13.4, Hct 40.0, MCV 93.9, MCH 31.5, MCHC 33.5, RDW Std Deviation 43.8, RDW Coeff of Kayla 12.8, Plt Count 268, MPV 8.7, Immature Gran % (Auto) 0.500, Neut % (Auto) 79.2 H, Lymph % (Auto) 11.6 L, [place] % (Auto) 8.3, Eos % (Auto) 0.0, Baso % (Auto) 0.4, Absolute Neuts (auto) 13.5 H, Absolute Lymphs (auto) 1.98, Nucleated RBC % 0 05/17/19 05:20: Sodium 141, Potassium 3.7, Chloride 110 H, Carbon Dioxide 25.0, Anion Gap 6, BUN 8, Creatinine 0.78, Estim Creat Clear Calc 64.24, Est GFR (MDRD) Af Amer 97, Est GFR (MDRD) Non-Af 80, BUN/Creatinine Ratio 10.2, Glucose 117 H, Calcium 8.2 L Current Medications Acetaminophen (Tylenol) 650 mg PO Q6H PRN PRN PRN Reason: Pain Score 1-04/26 Last Admin: 05/17/19 07:58 Dose: 650 mg Documented by: Cyclobenzaprine HCl (Cyclobenzaprine Hcl) 5 mg PO QHS [facility] Last Admin: 05/16/19 23:58 Dose: 5 mg Documented by: Gabapentin (Neurontin) 300 mg PO Q8 [facility] Last Admin: 05/17/19 05:16 Dose: 300 mg Documented by: Sodium Chloride () 1,000 mls @ 125 mls/hr IV .Q8H [facility] Last Infusion: 05/17/19 05:15 Dose: 0 mls/hr Documented by: Piperacillin Sod/Tazobactam (Sod 3.375 gm/ Sodium Chloride) 50 mls @ 12.5 mls/hr IV Q8 [facility] Last Admin: 05/17/19 05:15 Dose: 12.5 mls/hr Documented by: Pantoprazole Sodium 40 mg/ (Sodium Chloride) 110 mls @ 330 mls/hr IV Q24 [facility] Last Infusion: 05/17/19 00:53 Dose: Infused Documented by: Ibuprofen (Motrin) 200 - 600 mg PO Q6H PRN PRN PRN Reason: Pain Score 1-5/10 Ketorolac Tromethamine (Toradol) 15 mg IV Q6H PRN PRN PRN Reason: Pain Score 4-10/10 Stop: 05/21/19 22:59 Last Admin: 05/16/19 23:57 Dose: 15 mg Documented by: Morphine Sulfate () 2 - 4 mg IV Q2H PRN PRN PRN Reason: Pain Score 1-10/10 Morphine Sulfate () 2 - 4 mg IV Q2H PRN PRN PRN Reason: Pain Score 1-10/10 Non-Formulary Medication (Buspirone Hcl) 1 mg PO DAILY [facility] Ondansetron HCl (Zofran) 4 mg IV Q8H PRN PRN PRN Reason: NAUSEA Pancrelipase (Creon Dr 3,000 Unit Capsule) capsule PO TID [facility] Tramadol HCl (Ultram) 50 - 100 mg PO Q4H PRN PRN Reason: Pain Score 4-5/10 Medical Necessity - Tobacco Use Smoking Status: Current every day smoker Tobacco Use: Cigarettes Assessment/Plan All Active Problems (Last Reviewed 03/06/19 @ 13:48 by Nichole oYusif) Segmental and somatic dysfunction of cervical region (Acute) Segmental and somatic dysfunction of pelvic region (Acute) Segmental and somatic dysfunction of thoracic region (Acute) Segmental and somatic dysfunction of lumbar region (Acute) 58-year-old female s/p laparoscopic appendectomy 1. Patient is tolerating p.o. will have a regular breakfast this morning. 2. Continue I-S and wean O2, patient is unable to ambulate due to nonweightbearing on left foot due to previous fracture and torn ligament Likely DC home later today if patient is able to be weaned from O2 and continues to tolerate diet. Mirela Pugh M.D. Pager: [phone] [facility] [address] [place] [address], [address] [place] [address] Office: [phone]
[2019-05-17 09:00] VITALS: BP 121/66; PULSE 110; RESP 18; TEMP 36.6; O2SAT 95
--- NOTE | 2019-05-17 09:31 | PCM.DC.APPY ---
Discharge Diet: No Restrictions Discharge Activity: May not drive while taking narcotic pain medications. May shower in (days): 1 - 24 hr from surgery ok to shower Lifting Restrictions: no lifting >20 lbs x 3 week from surgery Call your doctor if your incision/area has: Continuous Slow Oozing, Sudden Increased Bleeding, Increased Pain/ Swelling, Increased Redness, Foul Smelling Discharge, Swelling at the incision site Remove Dressing in (days):: 1 - ok to remove opsite today, keep steris on for 7-10 days if they dont fall off ok to remove in 10 days Additional Instructions: Okay to take ibuprofen 400-600 mg PO q6hr PRN or Tylenol up to 1000 mg p.o. every 6 hours PRN along with demerol. Take all pain meds with food. Recommend taking daily stool softener (i.e. Colace/docusate) while taking the pain meds. Recommend starting some MiraLAX in 1 to 2 days if no bowel movement. If still no bowel movement following day recommend taking magnesium citrate half the bottle and waiting 4-6 hours if still no results take the other half the bottle. Medications to take at Discharge esomeprazole magnesium 20 mg capsule,delayed release 20 mg PO BID #180 cap 10/03/18 Buspirone HCl 1 mg PO QHS 03/09/19 Ondansetron [Zofran Odt] 4 mg PO Q8H PRN PRN #10 tab 03/09/19 Rosuvastatin Calcium 10 mg PO QHS 03/09/19 lipase/protease/amylase [Creon DR 3,000 Unit Capsule] 2 cap PO TID 03/09/19 gabapentin 300 mg capsule 300 mg PO Q8H #90 cap 03/22/19 Cyclobenzaprine HCl 5 mg PO QHS 05/16/19 Meperidine HCl [Demerol] 100 mg PO Q6H PRN PRN 2 Days #10 tablet 05/17/19 Allergies/Adverse Reactions: Allergies aloe vera Allergy (Verified 05/16/19 14:34) Other ARANA SKIN doxycycline Allergy (Verified 05/16/19 14:34) Other SEVERE YEAST INFECTION hydrocodone bitartrate [From Vicodin] Allergy (Verified 05/16/19 14:34) Upset Stomach oxycodone HCl [From Percocet] Allergy (Verified 05/16/19 14:34) Other HALUCINATE propoxyphene HCl [From Darvon] Allergy (Verified 05/16/19 14:34) Vomiting levofloxacin [From Levaquin] Adverse Reaction (Verified 05/16/19 14:35) Diarrhea The following prescriptions were given: Meperidine HCl [Demerol] 100 mg PO Q6H PRN PRN 2 Days #10 tablet PRN Reason: Pain Score 6-10/10 Transmission Status: Sent to [facility] Primary Care Physician: Simone Isidro MD [Primary Care Provider] - Test Results: Test results from this visit will be discussed in further detail at your follow-up appointment, if applicable. Please Follow Up With: Mirela Pugh MD - Any issues after 5 PM and on the weekends call [phone] When: Call the office [phone] for a follow-up appointment in 2 weeks Proposed Discharge Date: 05/17/19
[2019-05-17] MEDS: Docusate Sodium 100 MG Capsule PO (10:02)
[2019-05-17] MEDS: Polyethylene Glycol 3350 17 GM PACKET PO (10:03)
--- NOTE | 2019-05-17 13:47 | RAD_ITS ---
STUDY: X-RAY CHEST REASON FOR EXAM: Female, 58 years old. Hypoxia status post appendectomy. TECHNIQUE: AP and lateral views of the chest. COMPARISON: 02/27/19 FINDINGS: Cardiac silhouette unremarkable. Pulmonary vascularity unremarkable. Aorta unremarkable. No focal airspace opacities. No pleural effusions. Upper abdomen unremarkable. Osseous structures intact. No pneumothorax. RAD/Chest PA and Lateral IMPRESSION: No acute cardiopulmonary findings Electronically Signed: Gerson Molina, at 19:37 EDT Tel , Service support ,
[2019-05-17 13:50] VITALS: O2SAT 84
--- NOTE | 2019-05-17 13:51 | NURSING ---
Patient is nonambulatory d/t fx left foot. She is to be non weight bearing. Oxygen saturation on RA was 84%. This RN placed 2L 02 on patient and her saturation increased to 92%. Dr. Pugh made aware.
[2019-05-17 14:00] VITALS: BP 137/68; PULSE 96; RESP 18; TEMP 36.6; O2SAT 92
--- NOTE | 2019-05-17 14:40 | DS.PCM_ITS ---
Discharge Date and Diagnosis Date of Admission: 05/16/19 Date of Discharge: 05/17/19 - Primary Discharge Diagnosis acute appendicitis s/p lap appy COPD requiring portable home O2 - Secondary Discharge Diagnosis Chronic Problems (Last Reviewed 03/06/19 @ 13:48 by Nichole Yousif) Hirsutism (Chronic) Hyperhidrosis (Chronic) Patient has hyperhidrosis she has a long history of excessive sweating. Recurrent herpes simplex (Chronic) Patient has a history of recurrent herpes simplex she uses Zovirax cream but she wonders if she can get on an oral medication to prevent these problems rather than treat them after they occur. Bilateral headaches (Chronic) She claims she has bilateral stabbing headaches basically bitemporal headaches that are very severe but she is had them for a long period of time. MRI was ordered as she has not had any imaging studies Pain in left lower leg (Chronic) Couple of months ago she ran into a railing with her left leg, x-rays have been normal. Radicular low back pain (Chronic) She complains of what she describes as sciatica she does have bilateral radicular leg pain but there is nothing on examination that would make me suspicious of sciatica. GERD (gastroesophageal reflux disease) (Chronic) Patient has a long history of esophageal reflux she takes Nexium and the prescription has gone through Abdominal bloating with cramps (Chronic) Patient has a long-standing history of bloating after she eats, all of her blood work was normal, will try her on creon, and see if that helps COPD Hospital Course and Treatment Imaging Results: 05/17/19 13:47 CXR [Chest PA and Lateral] [RAD] Urgent Operations: appendectomy - laparoscopy 05/16/[address] Pugh Summary of Care Provided: The patient is a 58 year old F patient presented to the ER with acute appendicitis and white blood count 22. Patient underwent a laparoscopic appendectomy. Patient did well postoperatively but did still require O2 for ho me-going. Patient did not have her CPAP overnight and also is unable to ambulate due to her left foot fracture as she is an air boot but is nonweightbearing. Patient requires oxygenation with portable and locomotion in the community. Pt was 84% on RA, 93% on 2L NC. Pt tolerating PO, +flatus, using IS and getting up to 1750 cc. - Physical Exam Vitals/I&O's: Vital Signs Temp Pulse Resp BP Pulse Ox 97.8 F 110 H 18 121/66 H 84 05/17/19 09:00 05/17/19 09:00 05/17/19 09:00 05/17/19 09:00 05/17/19 13:50 Oxygen Flow Rate (L/min) 3 Oxygen Delivery Method Nasal Cannula Weight: 230 lb Body Mass Index (BMI) 40.7 Intake and Output for Last 24 Hours 05/15/19 05/16/19 05/17/19 23:59 23:59 23:59 Intake Total 50 / 400 1664.17 / 1664.17 Output Total 175 / 675 1100 / 1100 Balance -125 / -275 564.17 / 564.17 General: Alert, Oriented x3, Cooperative, No apparent distress Lungs: Clear to auscultation Cardiovascular: Regular rate Abdomen: Soft, Non-Distended, Tender - near incisions c/d/i, no PS Laboratory Results 05/16/19 15:25: WBC 22.1 H, RBC 4.86, Hgb 15.3 H, Hct 44.0, MCV 90.5, MCH 31.5, MCHC 34.8, RDW Std Deviation 40.6, RDW Coeff of Kayla 12.3, Plt Count 287, MPV 8.9, Immature Gran % (Auto) 0.700, Neut % (Auto) 88.3 H, Lymph % (Auto) 5.6 L, [place] % (Auto) 5.2, Eos % (Auto) 0.0, Baso % (Auto) 0.2, Absolute Neuts (auto) 19.6 H, Absolute Lymphs (auto) 1.25, Nucleated RBC % 0 05/16/19 15:25: Sodium 137, Potassium 3.9, Chloride 104, Carbon Dioxide 25.0, Anion Gap 8, BUN 6 L, Creatinine 0.69, Estim Creat Clear Calc 72.62, Est GFR (MDRD) Af Amer 111, Est GFR (MDRD) Non-Af 92, BUN/Creatinine Ratio 8.7 L, Glucose 128 H, Calcium 9.1, Total Bilirubin 0.70, AST 13 L, ALT 22, Alkaline Phosphatase 145 H, Total Protein 7.7, Albumin 3.6, Globulin 4.1, Albumin/Globulin Ratio 0.9, Lipase 49 L 05/16/19 16:00: Lactic Acid 1.2 05/16/19 17:27: Urine Color Yellow, Urine Clarity Clear, Urine pH 8.0, Ur Specific [place] 1.015, Urine Protein Negative, Urine Glucose (UA) 50 H, Urine Ketones Negative, Urine Occult Blood Negative, Urine Nitrite Negative, Urine Bilirubin Negative, Urine Urobilinogen Normal, Ur Leukocyte Esterase Negative, Urine RBC 0 SEEN, Urine WBC 0 SEEN, Ur Squamous Epith Cells 0 SEEN, Urine Bacteria 0 SEEN, Urine Mucus 0 SEEN 05/17/19 05:20: WBC 17.0 H, RBC 4.26, Hgb 13.4, Hct 40.0, MCV 93.9, MCH 31.5, MCHC 33.5, RDW Std Deviation 43.8, RDW Coeff of Kayla 12.8, Plt Count 268, MPV 8.7, Immature Gran % (Auto) 0.500, Neut % (Auto) 79.2 H, Lymph % (Auto) 11.6 L, [place] % (Auto) 8.3, Eos % (Auto) 0.0, Baso % (Auto) 0.4, Absolute Neuts (auto) 13.5 H, Absolute Lymphs (auto) 1.98, Nucleated RBC % 0 05/17/19 05:20: Sodium 141, Potassium 3.7, Chloride 110 H, Carbon Dioxide 25.0, Anion Gap 6, BUN 8, Creatinine 0.78, Estim Creat Clear Calc 64.24, Est GFR (MDRD) Af Amer 97, Est GFR (MDRD) Non-Af 80, BUN/Creatinine Ratio 10.2, Glucose 117 H, Calcium 8.2 L Current Medications Acetaminophen (Tylenol) 650 mg PO Q6H PRN PRN PRN Reason: Pain Score 1-04/26 Last Admin: 05/17/19 07:58 Dose: 650 mg Documented by: Cyclobenzaprine HCl (Cyclobenzaprine Hcl) 5 mg PO QHS [facility] Last Admin: 05/16/19 23:58 Dose: 5 mg Documented by: Gabapentin (Neurontin) 300 mg PO Q8 [facility] Last Admin: 05/17/19 05:16 Dose: 300 mg Documented by: Piperacillin Sod/Tazobactam (Sod 3.375 gm/ Sodium Chloride) 50 mls @ 12.5 mls/hr IV Q8 [facility] Last Infusion: 05/17/19 09:15 Dose: Infused Documented by: Pantoprazole Sodium 40 mg/ (Sodium Chloride) 110 mls @ 330 mls/hr IV Q24 [facility] Last Infusion: 05/17/19 00:53 Dose: Infused Documented by: Ibuprofen (Motrin) 200 - 600 mg PO Q6H PRN PRN PRN Reason: Pain Score 1-5/10 Morphine Sulfate () 2 - 4 mg IV Q2H PRN PRN PRN Reason: Pain Score 1-10/10 Morphine Sulfate () 2 - 4 mg IV Q2H PRN PRN PRN Reason: Pain Score 1-10/10 Non-Formulary Medication (Buspirone Hcl) 1 mg PO DAILY [facility] Ondansetron HCl (Zofran) 4 mg IV Q8H PRN PRN PRN Reason: NAUSEA Pancrelipase (Creon Dr 3,000 Unit Capsule) capsule PO TID [facility] Tramadol HCl (Ultram) 50 - 100 mg PO Q4H PRN PRN Reason: Pain Score 4-5/10 Discharge Diet: No Restrictions Discharge Activity: May not drive while taking narcotic pain medications. May shower in (days): 1 - 24 hr from surgery ok to shower Call your doctor if your incision/area has: Continuous Slow Oozing, Sudden Increased Bleeding, Increased Pain/ Swelling, Increased Redness, Foul Smelling Discharge, Swelling at the incision site Remove Dressing in (days):: 1 - ok to remove opsite today, keep steris on for 7- 10 days if they dont fall off ok to remove in 10 days Home Medications: Medications to take at Discharge esomeprazole magnesium 20 mg capsule,delayed release 20 mg PO BID #180 cap 10/03/18 Buspirone HCl 1 mg PO QHS 03/09/19 Ondansetron [Zofran Odt] 4 mg PO Q8H PRN PRN #10 tab 03/09/19 Rosuvastatin Calcium 10 mg PO QHS 03/09/19 lipase/protease/amylase [Creon DR 3,000 Unit Capsule] 2 cap PO TID 03/09/19 gabapentin 300 mg capsule 300 mg PO Q8H #90 cap 03/22/19 Cyclobenzaprine HCl 5 mg PO QHS 05/16/19 traMADol [Ultram] 50 mg PO Q6H PRN PRN 3 Days #15 tab 05/17/19 Following Prescrptions Were Given to Patient: traMADol [Ultram] 50 mg PO Q6H PRN PRN 3 Days #15 tab PRN Reason: Pain Score 6-10/10 Transmission Status: Received by [facility] #69 Primary Care Physician: Simone Isidro MD [Primary Care Provider] - Please follow up with your Primary Care Physician in: in 1-2 weeks Please Follow Up With: Mirela Pugh MD - Any issues after 5 PM and on the weekends call [phone] When: Call the office [phone] for a follow-up appointment in 2 weeks Additional Instructions: Okay to take ibuprofen 400-600 mg PO q6hr PRN or Tylenol up to 1000 mg p.o. every 6 hours PRN along with demerol. Take all pain meds with food. Recommend taking daily stool softener (i.e. Colace/docusate) while taking the pain meds. Recommend starting some MiraLAX in 1 to 2 days if no bowel movement. If still no bowel movement following day recommend taking magnesium citrate half the bottle and waiting 4-6 hours if still no results take the other half the bottle. Disposition: Home - w home O2 Patient Condition:: Stable Medical Necessity - Tobacco Use Smoking Status: Current every day smoker Tobacco Use: Cigarettes Meaningful Use Info Meaningful Use Diagnoses (Choose all that apply): None applicable
--- NOTE | 2019-05-17 15:12 | CASEMGMT ---
CÉSAR MICHEL received scrip for home oxygen at discharge. CÉSAR MICHEL in to discuss setup with patient. Patient states she would like [facility] for home oxygen as she is already established with them. CÉSRA MICHEL sent referral to [facility] and arranged for portable tank to be delivered to hospital prior to discharge.
== END 2019-05-17 15:22 | disposition home or self-care (01) ==
LOC: ED 15:29 → SDC 19:30 → AC 19:33 → MS3 05-17 07:18
PROVIDERS: Admitting Provider Surgery; Emergency Provider Emergency Medicine; Family Provider Family Medicine; PCP Family Medicine; Visit Provider Surgery
PROC: 0DTJ4ZZ Resection of Appendix, Percutaneous Endoscopic Approach (ICD-10-PCS; CPT 44970; principal; 2019-05-16 19:30)
DX: K35.80 Unspecified acute appendicitis (principal); J44.9 Chronic obstructive pulmonary disease, unspecified; R61 Generalized hyperhidrosis; K21.9 Gastro-esophageal reflux disease without esophagitis; G89.29 Other chronic pain; M19.90 Unspecified osteoarthritis, unspecified site; G47.30 Sleep apnea, unspecified; F17.210 Nicotine dependence, cigarettes, uncomplicated; E78.00 Pure hypercholesterolemia, unspecified; K58.9 Irritable bowel syndrome, unspecified; M99.03 Segmental and somatic dysfunction of lumbar region; B00.9 Herpesviral infection, unspecified; F41.9 Anxiety disorder, unspecified; I10 Essential (primary) hypertension; M99.02 Segmental and somatic dysfunction of thoracic region; M99.05 Segmental and somatic dysfunction of pelvic region; M99.01 Segmental and somatic dysfunction of cervical region; Z85.038 Personal history of other malignant neoplasm of large intestine; Z86.73 Personal history of transient ischemic attack (TIA), and cerebral infarction without residual deficits; Z85.44 Personal history of malignant neoplasm of other female genital organs; Z79.899 Other long term (current) drug therapy; Z99.81 Dependence on supplemental oxygen
CPT/HCPCS: 44970; 36415; 71046; 74177; 80048; 80053; 81001; 83605; 83690; 85025; 88304; 94762; 96361; 96365; 96366; 96367; 96375; 96376; 99218; 99284; 99406; J7030; Q9967; A4216; C1760; G0378; J2405

== ENCOUNTER → 2019-05-28 | Outpatient (CLI) | payer MEDICAID, SELFPAY ==
[2019-05-16 22:45] VITALS: BMI 40.7
--- NOTE | 2019-05-28 12:38 | RAD_ITS ---
STUDY: SWALLOWING STUDY REASON FOR EXAM: Female, 58 years old. Choking sensation. TECHNIQUE: The examination was performed with Speech Pathology in attendance. Under fluoroscopic observation, the patient ingested thin barium, thick barium, barium pudding, and barium coated cracker. FLUOROSCOPY TIME: 1:14 minutes/seconds. 1230 images were obtained. RADIOLOGIST INVOLVEMENT: Radiologist was present and providing direct supervision. COMPARISON: None. FINDINGS: The following was observed during swallowing of the various mixtures of barium: Thin Barium: There was no evidence of aspiration or laryngeal penetration. Barium Pudding: There was no evidence of aspiration or laryngeal penetration. Barium Coated Cracker: There was no evidence of aspiration or laryngeal penetration. RAD/Swallowing Function w/Video IMPRESSION: Normal tailored barium swallow study. No evidence of increased risk for aspiration. The swallow study findings were discussed with the patient by the speech pathologist at the conclusion of the examination. Please see speech pathology report for more information and recommendations. Electronically Signed: Klaus Bergman, at 13:29 EST , Service support ,
--- NOTE | 2019-05-28 12:55 | SP.MBSS_ITS ---
PRIMARY / SECONDARY DIAGNOSIS: Choking Sensation (R09.89) REFERRING PHYSICIAN: Dr. Isidro CURRENT DIET: regular textures/thin liquids DENTITION: present MENTAL STATUS: WFL for participation in MBS RESPIRATORY STATUS: oxygenating on room air at time of study; reports use of CPaP at night w/ 2L/min O2 PREVIOUS MODIFIED BARIUM SWALLOW STUDY: n/a REASON FOR REFERRAL: patient reports choking and gasping for air and globus sensation; not associated w/ PO intake; denies coughing/choking/difficulty swallowing foods/liquids; denies recent or recurrent pneumonia; admits to poorly controlled acid reflux MEDICAL HISTORY: COPD, GERD STUDY FINDINGS Patient participated in a Modified Barium Swallow (MBS) study on 05/28/2019. Dr. Bergman was the radiologist present for this evaluation. This study was recorded in the lateral view and images were sent to PACs for storage. The following consistencies were presented to this patient for analysis of oropharyngeal swallow function: thin liquid, pudding and a regular texture shortbread cookie. Results of the MBS are as follows: PENETRATION / ASPIRATION SCALE (CAMACHO): 1 = does not enter airway 2 = enters airway/above vocal folds/ejected 3 = enters airway/above vocal folds/not ejected 4 = enters airway/contacts vocal folds/ejected 5 = enters airway/contacts vocal folds/not ejected 6 = enters airway/below vocal folds/ejected 7 = enters airway/below vocal folds/not ejected despite effort 8 = enters airway/below vocal folds/no effort PENETRATION / ASPIRATION SCALE (SCORE): 1. Thin liquid, 5mL teaspoon: 1 2. Thin liquid, 5mL teaspoon: 1 3. Thin liquid, single cup sip: 1 4. Thin liquid, sequential cup sips: 2 5. Thin liquid, single straw sip: 1 6. Puddin 7. Cookie: 1 IMPRESSION ORAL PHASE CHARACTERIZED BY: LABIAL SEAL: no labial escape TONGUE CONTROL DURING BOLUS MANIPULATION: cohesive bolus between tongue to palatal seal BOLUS PREPARATION / MASTICATION: timely and efficient chewing and mashing BOLUS TRANSPORT / LINGUAL MOTION: brisk tongue motion ORAL RESIDUE: trace residue lining oral structures PHARYNGEAL PHASE CHARACTERIZED BY: INITIATION OF PHARYNGEAL SWALLOW: bolus head in valleculae at first hyoid excursion SOFT PALATE ELEVATION: no bolus between soft palate and pharyngeal wall LARYNGEAL ELEVATION: partial superior movement of thyroid cartilage/partial approximation of arytenoids cartilage to epiglottic petiole ANTERIOR HYOID EXCURSION: partial anterior movement EPIGLOTTIC MOVEMENT: partial epiglottic inversion LARYNGEAL VESTIBULE CLOSURE AT HEIGHT OF SWALLOW: complete laryngeal vestibule closure with no air/contrast in laryngeal vestibule PHARYNGEAL STRIPPING WAVE: pharyngeal stripping wave present / diminished PHARYNGOESOPHAGEAL SEGMENT OPENING: complete distension and complete duration with no obstruction of flow TONGUE BASE RETRACTION: trace column of contrast between tongue base and posterior pharyngeal wall PHARYNGEAL RESIDUE: collection of residue within or on pharyngeal structures ESOPHAGEAL PHASE CHARACTERIZED BY: ESOPHAGEAL BOLUS CLEARANCE IN THE UPRIGHT POSITION: complete clearance; esophageal coating INTERPRETATION OF RESULTS Patient presents with mild oropharyngeal dysphagia (R13.12) characterized by premature pharyngeal bolus entry w/ delayed swallow onset, resulting in transient laryngeal vestibule penetration of thin liquids undercoating the posterior laryngeal surface of the epiglottis w/ sequential swallows and ejecting entirely w/ swallow completion. Reduced anterior hyoid movement noted w/ incomplete epiglottic inversion and diminished pharyngeal stripping wave action resulted in mild pharyngeal residue retention w/in the valleculae and trace lining of the aryepiglottic folds to pyriforms post deglutition across all consistencies assessed. Residue did not accumulate across trials and does not result in increased risk for aspiration. Despite mild oropharyngeal dysphagia identified, swallow function was grossly WNL. Given reported history of poorly controlled GERD, it is highly suspected that the globus sensation and coughing/choking in absence of PO intake is related to reflux. RECOMMENDATIONS DIET TEXTURE RECOMMENDATIONS: regular textures/thin liquids COMPENSATORY STRATEGIES RECOMMENDED: avoid sequential swallows of liquids, seated upright at 90 degrees during PO intake, remain upright for 30-60 minutes post meal (GERD precaution) NEED FOR SKILLED SPEECH-LANGUAGE INTERVENTION TARGETING DYSPHAGIA: Education was provided immediately following MBS completion re: oropharyngeal strengthening exercise program for independent completion. No further skilled dysphagia intervention warranted at this time. REFERRALS: Consider further assessment of esophageal function/reflux given symptoms described. ADDITIONAL COMMENTS/RECOMMENDATIONS: Results and recommendations were discussed with the Patient immediately following MBS completion, with the Patient verbalizing understanding and agreement with all recommendations and education provided. Pt reports poor eating habits, eating 1 meal per day at 9p.m. would benefit from further education re: frequency of meals and impact on reflux. IMAGE COUNT: [id number]
[2019-05-28 16:38] LABS: ALB/GLOB Ratio 0.9 RATIO (0.9-2.4); AST(SGOT) 17 U/L (15-37); Alanine Aminotransfer ALT/SGPT 22 U/L (13-56); Albumin, Serum 3.6 g/dL (3.2-5.0); Alkaline Phosphatase 128 U/L (45-117); Anion Gap 8 (5-15); BUN 10 mg/dL (7-18); BUN/Creat Ratio 12.6 RATIO (10-20); Calcium,Total 9.1 mg/dL (8.5-10.1); Chloride 105 mmol/L (98-107); Cholesterol 223 mg/dL (200); EST Glomerular Filtration Rate 78 mL/min (>60); Est Glom Filt Rate - Afr Amer 95 mL/min (>60); Globulin 4.2 g/dL (2.2-4.2); Glucose 104 mg/dL (74-106); High Density Lipoprotein 44 mg/dL; Protein, Total 7.8 g/dL (6.4-8.2); Sodium Level 140 mmol/L (136-145); Triglycerides 194 mg/dL; Very Low Density Lipoprotein 39 mg/dL (5-40)
== END | disposition home or self-care (01) ==
PROVIDERS: Family Provider Family Medicine; PCP Family Medicine; Referring Provider Family Medicine; Visit Provider Family Medicine
DX: E78.5 Hyperlipidemia, unspecified (principal); R09.89 Other specified symptoms and signs involving the circulatory and respiratory systems
CPT/HCPCS: 36415; 74230; 80053; 80061; 92611

== ENCOUNTER → 2019-06-07 15:47 | Outpatient (CLI) | payer MEDICAID, SELFPAY ==
[2019-05-16 22:45] VITALS: BMI 40.7
[2019-06-07 17:50] LABS: Hemoglobin A1c 5.6 % (4.2-6.3)
== END ==
PROVIDERS: Family Provider Family Medicine; PCP Family Medicine; Referring Provider Family Medicine; Visit Provider Family Medicine
DX: R73.09 Other abnormal glucose (principal)
CPT/HCPCS: 36415; 83036

== ENCOUNTER → 2019-06-18 13:32 | Outpatient (CLI) | payer MEDICAID, SELFPAY ==
[2019-06-18 13:27] VITALS: BMI 39.8
--- NOTE | 2019-06-18 13:33 | RAD_ITS ---
STUDY: X-RAY - LEFT FOOT CLINICAL: Female, 58 years old. Follow-up visit TECHNIQUE: 3 view(s) of the foot. COMPARISON: None. FINDINGS: The midfoot bony structures are diffusely demineralized. No demonstrated acute fracture. Moderate to significant soft tissue swelling is present. A small to moderate-sized plantar calcaneal spur is present. A near completely healed fracture of the most distal aspect of the fibula is also present. Normal talus, calcaneus, and tarsal bones. Normal visualized subtalar, talonavicular, calcaneocuboid, tarsal and tarsometatarsal articulations. Normal metatarsi. Normal metatarsophalangeal joint of the great toe. Normal tibial and fibular sesamoid bones. Normal interphalangeal joint of the great toe. Normal phalanges of the great toe. Normal second through fifth metatarsophalangeal joints. Normal interphalangeal joints and phalanges of the lesser toes. RAD/Foot min 3 Views IMPRESSION: 1. The midfoot bony structures are diffusely demineralized. 2. No demonstrated acute fracture. 3. Moderate to significant soft tissue swelling is present. 4. A small to moderate-sized plantar calcaneal spur is present. 5. A near completely healed fracture of the most distal aspect of the fibula is also present. Electronically Signed: Randall Munoz MD at 9:53 EST , Service support ,
--- NOTE | 2019-06-18 13:33 | RAD_ITS ---
STUDY: X-RAY - LEFT ANKLE REASON FOR EXAM: Female, 58 years old. Follow-up. TECHNIQUE: 3 view(s) of the ankle. COMPARISON: 03/09/2019. FINDINGS: There is diffuse osteopenia. There is healing fracture of the distal fibula with near-anatomic alignment. Otherwise normal distal tibia and fibula. Normal medial and lateral malleoli. Normal tibiotalar articulation and ankle mortise. Plantar calcaneal spur otherwise normal visualized talus and calcaneus. The visualized subtalar, talonavicular, calcaneocuboid and tarsal articulations are normal. Mild soft tissue swelling along the anterior ankle seen. RAD/Ankle min 3 Views IMPRESSION: Osteopenia with healing fracture of the distal fibula as described above. Near-anatomic alignment. Electronically Signed: Valeria Miramontes MD at 3:06 EST , Service support ,
== END ==
PROVIDERS: Family Provider Family Medicine; PCP Family Medicine; Referring Provider Orthopaedic Surgery; Visit Provider Orthopaedic Surgery
DX: M25.572 Pain in left ankle and joints of left foot (principal)
CPT/HCPCS: 73610; 73630

== ENCOUNTER 2019-07-12 14:30 | Outpatient (RCR) | payer MEDICAID, SELFPAY ==
[2019-06-18 14:08] VITALS: BMI 39.8
--- NOTE | 2019-06-25 14:49 | HP.PTEVAL ---
Patient's Visit Information DEVON BARAHONA is a 58 year old F referred to Physical Therapy by Bernard Montes DO with a diagnosis of Left Ankle- Lateral Mall Fracture. Date of Evaluation: 06/25/19 Physical Therapist: Briana Cabrera DPT - Visit Plan Frequency: 2-3x /Week Duration: 4 Weeks Plan: Focus on ankle ROM, strength and edema control- can be in shoe in therapy. VASO and manual drainage for edema. - Subjective Findings: Fell in a hole on Mar 09- went to ER- found a broken bone- put her in a splint and then saw Dr. Machado- he kep her in a splint- NWB- has only been weight bearing since June 18. It has been swollen the whole time. PCP recommended a second opinion. Saw Dr. Gamble on Jun 18, 2019- took another x-ray which showed another fracture in the bottom of her foot and a messed up tendon/ligaments. He made her weight bearing and started PT- goes back in 6 weeks. Is wearing a house slipper instead of the boot at home. Has been walking with a walker in the house. Is in the w/c when she goes outside of the house. She was in such pain last night she almost went to the ER. Pain is located in the top of the foot and into the 5th metatarsl. Does have pain at the mortise. Pain sometimes radiates to the knee. Describes the pain as sharp/shooting and dull and achy in the calf. Feels vibration in her foot- comes and goes. Worst: 10/10 Agg: walking Eases: nothing Best: 0/10 When she first gets up in the AM. No changes since saw Dr. Gamble with PMHx/Meds. Fully I prior to injury. Is an active person. Work: does not work. Sleep: not disturbed. - Objective Posture: FH, RS, Increased kyphosis. SLS: pt will weight shift but unable to SLS without significant pain. Gait: took 4 steps- in boot- fww- step to pattern- significant pain. Girth: Malls: 26.5 cm Mets: 23.5 cm Figure 8: 55.5 cm. Observation: significant edema throughout foot. ROM: DF: 10 degrees from neutral PF: 30 degrees, Inver: 30 degrees, Ever: 20 degrees. Strength: 3+/5 throughout ankle. Flex: HS: severe, Gastroc: moderate - Goals Goal 1:: Patient will be I with HEP and progression Goal Time Frame: 4-6 Weeks Goal 2:: Patient will ambualte >300 feet with a normalized gait pattern Goal Time Frame: 4-6 Weeks Goal 3:: Patient will demo full AROM of the left ankle Goal Time Frame: 4-6 Weeks Goal 4:: Patient will SLS for 10 seconds without LOB Goal Time Frame: 4-6 Weeks - Rehabilitation Potential Physical Therapy Diagnosis: Patient presents with hypomobility- she has decreased ROM, strength and flexibility with increase edema leading to decreased ability to perform ADL's and ambulate with a normalized gait pattern Rehabilitation Potential: Fair - Anticipated Interventions Patient/Client Instruction: Educate patient on: Benefits of Fitness Program Therapeutic Exercise to Include: Strength training, Endurance training, Balance training, Agility training, Body mechanics, Postural training, Flexibilty training, Gait and locomotor training, Passive ROM, Active ROM Manual Therapy Techniques to Include: Manual lymph drainage, Passive ROM, Soft tissue mobilization For the Purpose of:: To decrease swelling/inflammation, To improve nutrient delivery to tissue TENS: Yes Cryotherapy (ice pack, ice massage): Yes Thermo therapy (hot pack): Yes Ultrasound (thermal/non thermal): No Thank you for the opportunity to evaluate your patient. For Medicare and Medicare HMO plans, please review the plan of care and approve it. It will need to be FAXED BACK to us at [phone] for Medicare purposes. For Medicare only, by signing this I certify the plan of care. Please let me know if there are questions or concerns regarding this plan of care. Physician Signature: Date:
--- NOTE | 2019-08-31 08:01 | HP.PT.NRP ---
HP - Discharge Summary (1) - Patient Information DEVON BARAHONA was seen in my office for initial evaluation on 06/25/19. The following Plan of Care was established for this patient: Initial Frequency: 2-3x /Week Initial Duration: 4 Weeks - Anticipated Interventions Patient/Client Instruction: Educate patient on: Benefits of Fitness Program Therapeutic Exercise to Include: Strength training, Endurance training, Balance training, Agility training, Body mechanics, Postural training, Flexibilty training, Gait and locomotor training, Passive ROM, Active ROM Manual Therapy Techniques to Include: Manual lymph drainage, Passive ROM, Soft tissue mobilization For the Purpose of:: To decrease swelling/inflammation, To improve nutrient delivery to tissue TENS: Yes Cryotherapy (ice pack, ice massage): Yes Thermo therapy (hot pack): Yes Ultrasound (thermal/non thermal): No This patient was last seen in our office . Pertinent comments regarding their Physical therapy will appear below: Patient has not attended physical therapy in over 30 days- appropriate to be d/c from PT and return to MD for further evaluation as necessary. At this point I will be discontinuing this patient from physical therapy. I would be happy to see this patient again in the future if found appropriate by the physician. Thank you! Briana Cabrera DPT
== END 2019-07-12 19:00 | disposition home or self-care (01) ==
LOC: PT 14:30
PROVIDERS: Family Provider Family Medicine; PCP Family Medicine; Referring Provider Orthopaedic Surgery; Visit Provider Orthopaedic Surgery
DX: S82.62XD Displaced fracture of lateral malleolus of left fibula, subsequent encounter for closed fracture with routine healing (principal); S86.312D Strain of muscle(s) and tendon(s) of peroneal muscle group at lower leg level, left leg, subsequent encounter; M72.2 Plantar fascial fibromatosis
CPT/HCPCS: 97016; 97110; 97124; 97140; 97161

== ENCOUNTER → 2019-07-20 11:15 | Outpatient (CLI) | payer MEDICAID, SELFPAY ==
[2019-07-20 07:55] VITALS: BMI 39.8
--- NOTE | 2019-07-20 11:15 | RAD_ITS ---
STUDY: X-RAY - LEFT KNEE REASON FOR EXAM: Female, 58 years old. BILATERAL KNEE PAIN, NO TRAUMA TECHNIQUE: 4 view(s) of the knee. COMPARISON: None. FINDINGS: Normal visualized distal femur. Normal visualized proximal tibia and fibula. Normal proximal tibiofibular articulation. There is mild lateral patellar tilt. Normal medial femorotibial compartment. Normal lateral femorotibial compartment. Normal patellofemoral articulation. The soft tissue structures are unremarkable. RAD/Knee 4 or More Views IMPRESSION: Lateral patellar tilt. Electronically Signed: Savi Emerson MD at 14:57 EST Tel , Service support ,
--- NOTE | 2019-07-20 11:15 | RAD_ITS ---
STUDY: X-RAY - RIGHT KNEE REASON FOR EXAM: Female, 58 years old. BILATERAL KNEE PAIN, NO INJURY TECHNIQUE: 4 view(s) of the knee. COMPARISON: None. FINDINGS: Normal visualized distal femur. Normal visualized proximal tibia and fibula. Normal proximal tibiofibular articulation. There is mild lateral patellar tilt. Normal medial femorotibial compartment. Normal lateral femorotibial compartment. Normal patellofemoral articulation. The soft tissue structures are unremarkable. RAD/Knee 4 or More Views IMPRESSION: Mild lateral patellar tilt. Electronically Signed: Savi Emerson MD at 14:57 EST Tel , Service support ,
== END ==
PROVIDERS: Family Provider Family Medicine; PCP Family Medicine; Referring Provider Orthopaedic Surgery; Visit Provider Orthopaedic Surgery
DX: M25.561 Pain in right knee (principal); M25.562 Pain in left knee
CPT/HCPCS: 73564

== ENCOUNTER → 2019-07-31 15:43 | Outpatient (CLI) | payer MEDICAID, SELFPAY ==
[2019-07-20 07:55] VITALS: BMI 39.8
--- NOTE | 2019-07-31 15:58 | MRI_ITS ---
STUDY: MRI RIGHT KNEE REASON FOR EXAM: Female, 58 years old. Pain. TECHNIQUE: Standardized fat and water weighted pulse sequences were obtained in all 3 orthogonal planes. COMPARISON: X-ray July 20, 2019 FINDINGS: There is medial meniscus tear of the body, series 5 images through . Normal hyaline cartilage of the medial femorotibial compartment. There is reactive marrow edema and cystic change of the medial tibial plateau. Normal medial collateral ligamentous complex (MCL). Normal distal semimembranosus, gracilis and semitendinosus tendons. Normal lateral meniscus. Normal hyaline cartilage of the lateral femorotibial compartment. Normal lateral femoral condyle and tibial plateau. Normal proximal tibiofibular articulation. Normal lateral collateral (fibular) ligament. Normal popliteus tendon. Normal biceps femoris tendon. Normal anterior cruciate ligament (ACL). Normal posterior cruciate ligament (PCL). There is arthrosis of the patellofemoral articulation. There is spurring and cystic change. There is diffuse, greater than 50% thickness articular cartilage loss of the patellofemoral compartment. Normal medial and lateral patellar retinaculum. Normal quadriceps tendon. Normal patellar tendon. Normal Hoffa''s fat pad. There is a small volume joint effusion. The soft tissues are unremarkable. The otherwise visualized osseous structures are unremarkable. MRI/Lower Ext Joint Only (Routine) IMPRESSION: Medial meniscus tear. Stress injury of the medial tibial plateau. Degenerative change. Joint effusion Electronically Signed: Mario Alberto Cochran MD at 19:25 EST , Service support ,
[2019-07-31 16:01] LABS: Bacteria 0 SEEN /hpf (None Seen); Mucous, Urine 0 SEEN /hpf (<or=2+); Red Blood Cells-Urine 0 SEEN /hpf (0-5); Squamous Epithelial Cells - UA 0 SEEN /hpf (5-10); White Blood Cells 0 SEEN /hpf (0-5)
[2019-07-31 17:26] LABS: Absolute Lymphocyte Count 2.23 X10^3/uL (0.83-4.51); Absolute Neutrophil Count 5.3 X10^3/uL (2.0-7.7); Basophil# 0.05 X10^3/uL; Basophil% 0.6 % (0-1); Eosinophil# 0.15 X10^3/uL; Eosinophils% 1.8 % (0-5); Hematocrit 44.3 % (37-47); Hemoglobin 14.5 g/dL (12.0-15.0); Lymphocyte # 2.23 X10^3/ul (4.0); Lymphocyte % 26.8 % (19-41); Mean Corp Hgb Conc 32.7 g/dL (32-36); Mean Corpuscular Hgb 30.5 pg (27.0-32.0); Mean Corpuscular Volume 93.1 fL (81-99); Mean Platelet Vol. 8.9 fl (6.2-12.0); Monocyte# 0.57 X10^3/uL; Monocyte% 6.9 % (0-10); NRBC Flagged by Analyzer 0 % (0-5); Neutrophil # 5.26 X10^3/uL (2.7-7.7); Neutrophil % 63.3 % (47-70); Platelet Count 313 K/mm3 (150-450); RBC Distribution Width CV 12.6 % (11.6-14.6); RBC Distribution Width SD 43.1 fl (35.1-43.9); Red Blood Count 4.76 M/mm3 (4.2-5.4); White Blood Count 8.3 K/mm3 (4.4-11.0)
[2019-07-31 17:34] LABS: Color, Urine Straw (Yellow); Glucose, Dipstick Normal (Normal); Ketone-Dipstick Negative (Negative); Leukocyte Esterase-Dipstick Negative /ul (Negative); Nitrite-Dipstick Negative (Negative); Occult Blood-Urine Negative /ul (Negative); Protein-Dipstick Negative (Negative); Urine Bilirubin Dipstick Negative (Negative); Urine Clarity Clear (Clear); Urine Urobilinogen Normal (Normal)
[2019-07-31 18:05] LABS: AST(SGOT) 12 U/L (15-37); Alanine Aminotransfer ALT/SGPT 22 U/L (13-56); Albumin, Serum 3.8 g/dL (3.2-5.0); Alkaline Phosphatase 165 U/L (45-117); Anion Gap 4 (5-15); BUN 11 mg/dL (7-18); BUN/Creat Ratio 15.1 RATIO (10-20); Calcium,Total 9.3 mg/dL (8.5-10.1); Chloride 106 mmol/L (98-107); Cholesterol 198 mg/dL (200); Creatinine, Serum 0.73 mg/dL (0.55-1.02); EST Glomerular Filtration Rate 87 mL/min (>60); Est Glom Filt Rate - Afr Amer 105 mL/min (>60); Globulin 3.7 g/dL (2.2-4.2); Glucose 93 mg/dL (74-106); High Density Lipoprotein 57 mg/dL; Potassium 3.7 mmol/L (3.5-5.1); Protein, Total 7.5 g/dL (6.4-8.2); Sodium Level 138 mmol/L (136-145); Triglycerides 107 mg/dL; Very Low Density Lipoprotein 21 mg/dL (5-40)
[2019-07-31 18:07] LABS: Hemoglobin A1c 5.6 % (4.2-6.3)
== END ==
PROVIDERS: Family Provider Family Medicine; PCP Family Medicine; Referring Provider Orthopaedic Surgery; Visit Provider Orthopaedic Surgery
DX: M25.561 Pain in right knee (principal); E78.5 Hyperlipidemia, unspecified; R73.09 Other abnormal glucose; Z72.0 Tobacco use
CPT/HCPCS: 36415; 73721; 80053; 80061; 81001; 83036; 85025

== ENCOUNTER 2019-08-16 08:47 | Day surgery (SDC) | payer MEDICAID, SELFPAY ==
[2019-08-03 07:53] VITALS: BMI 39.8
[2019-08-16] VITALS (12 sets, daily range): BP systolic 101–140; BP diastolic 61–97; PULSE 85–115; RESP 16–22; TEMP 36.4–36.7; O2SAT 93–99; BMI 40.2
[2019-08-16] MEDS: Lactated Ringers 1,000 ML 100 ML IV (09:16)
[2019-08-16] MEDS: Ipratropium/Albuterol Sulfate 3 ML AMPUL.NEB INHALATION ×2 (09:41→12:07)
[2019-08-16] MEDS: Cefazolin 2 GM in 0.9% Normal Saline 100 ML IV (11:00)
[2019-08-16] MEDS: MethylPREDNISolone Acetate 80 MG/ML Vial (11:22)
[2019-08-16] MEDS: Bupiv/Epi 0.5% Mpf 30 ML Vial (11:22)
[2019-08-16] MEDS: Bupivacaine Mpf 0.5% 30 ML VIAL (11:22)
--- NOTE | 2019-08-16 11:25 | PCM.DC.ORTHO ---
Discharge Diet: No Restrictions Call your doctor if you observe: Fever of 101 or Higher Additional Instructions: Ice and elevate next 72 hours .keep dressing on clean and dry for 48 hours then may remove begin showering daily but do not submerge in tub or pool. After shower may apply Band-Aids . Encourage knee range of motion weightbearing as tolerated, use crutches until confident in knee then may discontinue. No strenuous activity. When not ambulating keep iced and elevated next 72 hours. Allergies/Adverse Reactions: Allergies aloe vera Allergy (Verified 08/16/19 08:56) Other ARANA SKIN doxycycline Allergy (Verified 08/16/19 08:56) Other SEVERE YEAST INFECTION hydrocodone bitartrate [From Vicodin] Allergy (Verified 08/16/19 08:56) Upset Stomach oxycodone HCl [From Percocet] Allergy (Verified 08/16/19 08:56) Other HALUCINATE Penicillins Allergy (Verified 08/16/19 08:56) yeast infection propoxyphene HCl [From Darvon] Allergy (Verified 08/16/19 08:56) Vomiting levofloxacin [From Levaquin] Adverse Reaction (Verified 08/16/19 08:56) Diarrhea Medications to take at Discharge esomeprazole magnesium 20 mg capsule,delayed release 20 mg PO BID #180 cap 10/03/18 Buspirone HCl 1 mg PO QHS 03/09/19 Rosuvastatin Calcium 10 mg PO QHS 03/09/19 Cyclobenzaprine HCl 5 mg PO BID 05/16/19 gabapentin 300 mg capsule 300 mg PO Q8H #90 cap 07/17/19 valacyclovir 500 mg tablet 500 mg PO DAILY #30 tab 07/17/19 L.acidoph,Paracasei, B.lactis [Probiotic] 1 ea PO DAILY 08/09/19 traMADol [Ultram (G)] 50 mg PO Q4H PRN PRN #42 tab 08/16/19 The following prescriptions were given: traMADol [Ultram (G)] 50 mg PO Q4H PRN PRN #42 tab PRN Reason: Pain Score 6-10/10 Transmission Status: Sent to [id number] Primary Care Physician: Simone Isidro MD [Primary Care Provider] - Test Results: Test results from this visit will be discussed in further detail at your follow-up appointment, if applicable. Please Follow Up With: Bernard Montes DO - 2 weeks
[2019-08-16] MEDS: traMADol 50 MG Tablet PO (14:03)
--- NOTE | 2019-08-16 14:41 | OP_ITS ---
Report of Operation Date of Procedure: 08/16/19 Description of Surgical Findings:: Preop diagnosis: Right medial meniscus tear DJD Postoperative diagnosis: Complex tear body medial meniscus grade 3 cartilage wear with loose cartilage flaps medial femoral condyle grade 2 medial tibial plateau and lateral tibial plateau and grade 3 patellar apex Procedure: Right knee arthroscopic partial medial meniscectomy and chondroplasty Anesthesia: General Estimated blood loss: 5 mL Tourniquet time: 20 minutes 300 mmHg Complications: none Indication for procedure: 58-year-old female patient with mechanical knee pain was failed conservative treatment did have MRI evidence of meniscus tear and DJD the patient did wish to proceed with an elective arthroscopic surgery to attempt to alleviate the symptoms. Risk benefits and alternatives of the procedure were reviewed including risk of bleeding infection nerve artery tissue damage need for further surgery continued pain and expected postoperative course. Procedure: The patient was met in the preoperative holding area. The operative extremity was identified by both patient and physician and family and marked. Patient was brought back to the operating room on a wheeled cart and transferred to the operating table in the supine position. Anesthesia was started. A well- padded tourniquet was placed on the operative extremity. A lower extremity leg rothman was secured to the operative extremity. The contralateral extremity was well-padded and the end of the bed was flexed to 90 degrees. The patient was prepped and draped in the usual sterile fashion. A timeout was called to ensure the proper patient, procedure, and extremity were being contemplated. 0.5% Marcaine with epinephrine was injected into the planned incisional areas under the skin only. An Esmarch was used to exsanguinate the extremity and the tourniquet was inflated. An 11 blade scalpel was used to make a stab incision in the anterior lateral portal. The arthroscope was inserted into the intercondylar notch and inflow and outflow tubes were attached. Arthroscopic visualization began. The medial compartment was entered. An 18-gauge spinal needle was used to establish the placement for anterior medial portal. An 11 blade scalpel was used to make a stab incision. Blunt probe was inserted followed by a meniscal probe. Medial compartment did have grade 3 cartilage wear with loose cartilage flaps as well as a large complex body tear of the medial meniscus with use of arthroscopic cutting instruments and iván a partial medial meniscectomy and chondroplasty was performed the ACL was found to be intact. The lateral compartment was entered and was free of meniscal pathology but there was softening of the lateral tibial plateau with the use of a probe The arthroscope was switched to the medial portal to complete the procedure. The medial and lateral gutters were inspected and were free of loose bodies. The patellofemoral joint was inspected had grade 3 cartilage wear of the patellar apex grade 2 of the trochlea. There was good patellar tracking. The knee was thoroughly irrigated and drained. An intra-articular injection with 5 cc 0.5% Marcaine plain 4 mg of morphine and 40 mg of Depo-Medrol was injected intra-articularly. The arthroscope was removed the portals were closed with 3-0 nylon arthroscopic stitches. Followed by Xeroform 4 x 4's ABDs web roll and an Justin wrap. The tourniquet was let down and the drapes were removed. All counts were correct. The patient was brought back to the PACU in stable condition. 08/16/19 1443 <Electronically signed by Bernard norman DO> Date _ Bernard Montes DO CC: Simone Isidro MD; Bernard Montes DO ~ Signed
--- NOTE | 2019-08-24 10:11 | PCM.HP.BLA ---
History and Physical Date of Admission: 08/24/19 Intake Intake Visit Reasons: right knee Chief Complaint: knee pain Allergies aloe vera Allergy (Verified 08/09/19 14:32) Other doxycycline Allergy (Verified 08/09/19 14:32) Other hydrocodone bitartrate [From Vicodin] Allergy (Verified 08/09/19 14:32) Upset Stomach oxycodone HCl [From Percocet] Allergy (Verified 08/09/19 14:32) Other Penicillins Allergy (Verified 08/09/19 14:32) yeast infection propoxyphene HCl [From Darvon] Allergy (Verified 08/09/19 14:32) Vomiting levofloxacin [From Levaquin] Adverse Reaction (Verified 08/09/19 14:32) Diarrhea PFSH Social History (Updated 08/03/19 @ 11:55 by Bernard Montes DO) Smoking Status: Current every day smoker tobacco type: cigarettes quit status: not considering quitting alcohol intake: never substance use type: does not use what type of physical activity do you participate in: none Ortho Exam Right Knee Skin/Wound: Yes CDI, Yes swelling Contralateral Normal: Yes Knee ROM: Yes ROM-Extension -20 to 0, No ROM-Flexion 0-140 Examination: Yes Med jt line tenderness, Yes Pain with flexion Supplemental Info 07/20/2019 x-ray bilateral knees: Faint joint space narrowing medially bilaterally no significant spurring or sclerosis no acute findings 06/18/2019 x-ray left ankle: Severe osteopenia compared to prior x-rays February 2019 fracture line lateral malleolus still visible lateral view only appears healed 04/04/2019 MRI left ankle: Nondisplaced fractures distal fibula and posterior medial malleolus sprain of anterior and posterior tibiofibular ligaments avulsion type injury of the peroneal is longus at medial cuneiform split tear peroneal brevis tendon (report only no images) Assessment & Plan Problems 1. Patellofemoral arthritis of right knee M17.11 2. Obesity (BMI 35.0-39.9 without comorbidity) E66.9 3. Derangement of medial meniscus of right knee M23.303 Plan Educated the patient on the anatomy of the knee and explained that the MRI showed a medial meniscus tear and OA. Explained that her surgical option is a partial meniscectomy and explained that she may have some post op aching for longer than average due to the OA. Instructed to stop/not use any nsaids prior to surgery and if that pain remains at the 6wk post op we can discuss steroid injection. Reviewed her lumbar images and explained we can prescribe her PT for the low back pain after knee surgery. Reviewed the pre-operative plans with the patient. Risks and benefits of the procedure were fully explained, including but not limited to infection, neurovascular injury, continued pain, arthritis, stiffness, need for further surgery, re-injury, DVT, PE, general risks of anesthesia, and loss of limb or life. The patient understands all the risks and does wish to proceed with written consent. Follow up postop or sooner if pain, swelling, numbness or associated symptoms, or concerns develop. All questions answered. Patient in agreement of plan. Plan Detail Goals Decrease pain Increase ROM Improve ability to perform house cleaning Coding Level of Care Code Off vis,est,level 3 Diagnoses Patellofemoral arthritis of right knee M17.11 Obesity (BMI 35.0-39.9 without comorbidity) E66.9 Derangement of medial meniscus of right knee M23.303 I have re-examined the patient. There are no clinical changes since date of exam
== END 2019-08-16 14:17 | disposition home or self-care (01) ==
LOC: SDC 08:47 → AC 08:49
PROVIDERS: PCP Family Medicine; Referring Provider Orthopaedic Surgery; Visit Provider Orthopaedic Surgery
PROC: (CPT 29870; principal; 2019-08-16 10:10)
DX: S83.241A Other tear of medial meniscus, current injury, right knee, initial encounter (principal); M17.11 Unilateral primary osteoarthritis, right knee; E66.9 Obesity, unspecified; Z68.41 Body mass index [BMI] 40.0-44.9, adult; F17.210 Nicotine dependence, cigarettes, uncomplicated; J44.9 Chronic obstructive pulmonary disease, unspecified; G47.30 Sleep apnea, unspecified; K21.9 Gastro-esophageal reflux disease without esophagitis; E78.00 Pure hypercholesterolemia, unspecified; F41.9 Anxiety disorder, unspecified; Z85.89 Personal history of malignant neoplasm of other organs and systems; Z79.899 Other long term (current) drug therapy; X58.XXXA Exposure to other specified factors, initial encounter; Y93.9 Activity, unspecified; Y92.9 Unspecified place or not applicable; Y99.9 Unspecified external cause status
CPT/HCPCS: 20610; 29881; 94640; 99251; J7120; G0463; J2405

== ENCOUNTER → 2019-08-29 | Outpatient (CLI) | payer MEDICAID, SELFPAY ==
[2019-08-29 10:54] VITALS: BMI 40.2
--- NOTE | 2019-08-29 11:00 | RAD_ITS ---
STUDY: X-RAY - PELVIS AND LEFT HIP REASON FOR EXAM: Female, 58 years old. LEFT HIP PAIN SINCE KNEE SURGERY TECHNIQUE: 3 views of the pelvis and hip. COMPARISON: None. FINDINGS: There is a non-specific bowel gas pattern. Normal visualized soft tissue structures. Normal bilateral iliac wings, sacroiliac joints and visualized sacrum. Normal bilateral superior and inferior pubic rami. Normal pubic symphysis. Normal bilateral ischial tuberosities. Normal visualized femoral head. Normal acetabulum. Normal hip joint. RAD/HIP, UNI W/ Pelvis 2-3 Views IMPRESSION: Normal x-ray examination of the pelvis and hip. Electronically Signed: Geovanni Alexander MD at 20:12 EST , Service support ,
== END | disposition home or self-care (01) ==
LOC: HPRAD 11:00
PROVIDERS: PCP Family Medicine; Referring Provider Orthopaedic Surgery; Visit Provider Orthopaedic Surgery
DX: M25.552 Pain in left hip (principal)
CPT/HCPCS: 73502

== ENCOUNTER → 2019-09-11 | Outpatient (CLI) | payer MEDICAID, SELFPAY ==
[2019-08-29 10:54] VITALS: BMI 40.2
[2019-09-11 17:52] LABS: Erythrocyte Sedimentation Rate 31 mm/hr (0-30)
[2019-09-11 18:00] LABS: CPK Total, Creatine Kinase 292 U/L (26-192); Ferritin 31 ng/mL (8-252); Magnesium 2.2 mg/dL (1.6-2.6)
[2019-09-11 18:38] LABS: Rheumatoid Factor < 10.0 IU/mL (<15); Thyroid Stim Hormone (TSH) 0.96 uIU/mL (0.358-3.74)
[2019-09-12 13:01] LABS: HIV - WCH Non-Reactive (Nonreactive); Hepatitis C Antibody Non-Reactive (Nonreactive); Vitamin B12 372 pg/mL (211-911)
[2019-09-13 12:07] LABS: RNP Ab 0.2 AI (0.0-0.9); Smith Ab <0.2 AI (0.0-0.9)
[2019-09-13 15:47] LABS: ANTINUCLEAR ANTIBODIES DIRECT Negative (Negative)
[2019-09-17 08:07] LABS: Immunoglobulin A 128 mg/dL (87-352); Immunoglobulin G 730 mg/dL (700-1600); PROEL- Albumin 3.4 g/dL (2.9-4.4); PROEL- Alpha-1 Globulin 0.2 g/dL (0.0-0.4); PROEL- Beta Globulin 1.3 g/dL (0.7-1.3); PROEL- Gamma Globulin 0.8 g/dL (0.4-1.8); PROEL- Globulin, Total 3.3 g/dL (2.2-3.9); PROEL- TOTAL PROTEIN 6.7 g/dL (6.0-8.5)
[2019-09-17 13:26] LABS: Creatinine, Urine 0.17 g/L (0.30-3.00)
[2019-09-17 13:27] LABS: Immunoglobulin M 61 mg/dL (26-217)
== END | disposition home or self-care (01) ==
LOC: MTLAB 15:21
PROVIDERS: Psychiatry & Neurology Neurology; PCP Family Medicine; Referring Provider Family Medicine; Visit Provider Family Medicine
DX: G62.9 Polyneuropathy, unspecified (principal); R25.2 Cramp and spasm; R53.83 Other fatigue
CPT/HCPCS: 36415; 82175; 82550; 82570; 82607; 82728; 82746; 82784; 83655; 83735; 83825; 84165; 84443; 85652; 86038; 86235; 86334; 86431; 86703; 86803

== ENCOUNTER → 2019-09-20 | Outpatient (CLI) | payer MEDICAID, SELFPAY ==
[2019-08-29 10:54] VITALS: BMI 40.2
--- NOTE | 2019-09-20 13:00 | ART_ITS ---
Reason For Study: decreased pedal pulses Procedure A bilateral lower extremity continuous wave Doppler with analog waveform analysis and ankle brachial indexes. Left Segmental Pressures Left brachial= 148mmHg. Left posterior tibial artery = 153mmHg. Left dorsalis pedis artery = 128mmHg. The left dorsalis pedis waveforms are triphasic. The left posterior tibial artery waveforms are triphasic. Right Segmental Pressures Right brachial= 147mmHg. Right posterior tibial artery = 158mmHg. Right dorsalis pedis artery = 143mmHg. The right dorsalis pedis waveforms are triphasic. The right posterior tibial artery waveforms are triphasic. Indices The right ankle brachial index by the dorsalis pedis is .97. The right ankle brachial index by the posterior tibial artery is 1.07. The right post exercise ankle brachial index is 1.13. The left ankle brachial index by the dorsalis pedis is .86. The left ankle brachial index by the posterior tibial artery is 1.03. The left post exercise ankle brachial index is 1.11. Interpretation Summary Triphasic Doppler waveforms are noted at ankle level bilaterally. Pulse-volume recordings appear satisfactory at ankle level bilaterally. Resting ankle-brachial indices are normal bilaterally. The patient was ambulated at a moderate pace for 2.5 minutes, which elicited bilateral leg pain. Ankle pressures obtained one minute following cessation of ambulation were augmented, which is a normal physiological response. There is no evidence of significant arterial occlusive disease in the lower extremities bilaterally. Ordering Physician: Simone Isidro Performed By: SOL YE RVT
== END | disposition home or self-care (01) ==
LOC: CVS 12:58
PROVIDERS: PCP Family Medicine; Referring Provider Family Medicine; Visit Provider Family Medicine
DX: R09.89 Other specified symptoms and signs involving the circulatory and respiratory systems (principal)
CPT/HCPCS: 93922

== ENCOUNTER → 2019-10-10 10:03 | Outpatient (CLI) | payer MEDICAID, SELFPAY ==
[2019-08-29 10:54] VITALS: BMI 40.2
[2019-09-26 14:30] VITALS: BMI 40.2
--- NOTE | 2019-10-10 10:17 | MRI_ITS ---
STUDY: MRI LUMBAR SPINE WITHOUT CONTRAST REASON FOR EXAM: Female, 59 years old. spinal stenosis, low back pain TECHNIQUE: Standardized fat and water weighted pulse sequences were obtained in the sagittal and axial planes. COMPARISON: X-ray 02/15/2019 FINDINGS: T12-L1: Normal endplates. Normal disc height, hydration and morphology. Normal bilateral facet joints. Normal central canal and bilateral lateral recesses. Normal bilateral intervertebral neural foramina. Normal lumbar lordosis. Mild levoscoliosis centered at L3. Normal conus medullaris that terminates at the L1. L1-2: Normal endplates. Normal disc height, hydration and morphology. Normal bilateral facet joints. Normal central canal and bilateral lateral recesses. Normal bilateral intervertebral neural foramina. L2-3: Mild bilobed disc protrusion produces minimal spinal stenosis and mild left neural foraminal stenosis. L3-4: Normal endplates. Normal disc height, hydration and morphology. Normal bilateral facet joints. Normal central canal and bilateral lateral recesses. Normal bilateral intervertebral neural foramina. L4-5: Mild broad disc protrusion produces mild spinal stenosis and mild bilateral neural foraminal stenosis. L5-S1: Mild bilateral facet hypertrophy. Mild broad disc protrusion asymmetric to the left produces mild spinal stenosis with mild bilateral lateral recess stenosis, mild right neural foraminal stenosis, and moderate left neural foraminal stenosis with abutment of the exiting left L5 nerve root laterally. Normal visualized sacral ala. Normal visualized paraspinous soft tissue structures. MRI/Spine Lumbar (Routine) IMPRESSION: Mild levoscoliosis with degenerative disc disease as described above. Electronically Signed: Ant Hairston MD at 12:15 EDT Tel , Service support ,
== END ==
PROVIDERS: PCP Family Medicine; Referring Provider Psychiatry & Neurology Neurology; Visit Provider Psychiatry & Neurology Neurology
DX: M48.062 Spinal stenosis, lumbar region with neurogenic claudication (principal)
CPT/HCPCS: 72148

== ENCOUNTER → 2019-11-07 14:13 | Outpatient (CLI) | payer MEDICAID, SELFPAY ==
[2019-09-26 14:30] VITALS: BMI 40.2
--- NOTE | 2019-11-07 14:29 | RAD_ITS ---
STUDY: X-RAY - PELVIS AND LEFT HIP REASON FOR EXAM: Female, 59 years old. Hip and groin pain TECHNIQUE: 3 views of the pelvis and hip. COMPARISON: None. FINDINGS: There is a non-specific bowel gas pattern. There are multiple calcified phleboliths. Normal bilateral iliac wings, sacroiliac joints and visualized sacrum. Normal bilateral superior and inferior pubic rami. Normal pubic symphysis. Normal bilateral ischial tuberosities. Normal visualized femoral head. Normal acetabulum. There is mild articular joint space narrowing of the hip. RAD/HIP, UNI W/ Pelvis 2-3 Views IMPRESSION: Mild degree of joint space narrowing of the hip joints. Electronically Signed: Klaus Bergman, at 15:41 EDT , Service support ,
== END ==
PROVIDERS: PCP Family Medicine; Referring Provider Anesthesiology Pain Medicine; Visit Provider Anesthesiology Pain Medicine
DX: M25.552 Pain in left hip (principal); R10.30 Lower abdominal pain, unspecified
CPT/HCPCS: 73502

== ENCOUNTER → 2019-11-16 | Outpatient (CLI) | payer MEDICAID, SELFPAY ==
[2019-09-26 14:30] VITALS: BMI 40.2
--- NOTE | 2019-11-16 13:00 | MRI_ITS ---
STUDY: MRI LEFT ANKLE WITHOUT CONTRAST REASON FOR EXAM: Female, 59 years old. Injury fall 2019. COntinued swelling and burning in LEFT ankle. Tear of LEFT peroneal tendon, fibular fx. plantar fascitis TECHNIQUE: Standardized fat and water weighted pulse sequences were obtained in all 3 orthogonal planes. COMPARISON: Left ankle x-ray dated June 18, 2019 FINDINGS: A nonhealed mildly displaced oblique fracture is present through the distal shaft of the fibula terminating just above the lateral malleolus. Moderate subcutaneous edema is seen on the medial side of ankle joint and mild edema is present on the lateral side. Mild intramuscular edema is present on the medial side of the calcaneus. No discrete fluid collection is present. Normal posterior tibialis tendon. Normal flexor digitorum longus tendon. Normal flexor hallucis longus tendon. Normal peroneus longus and brevis tendons. Normal tibialis anterior tendon. Normal extensor hallucis longus tendon. Normal extensor digitorum longus tendons. Normal Achilles tendon and teno-osseous insertion. Normal plantar fascia. Normal plantar calcaneal tubercles. Normal intrinsic muscles of the rearfoot. Normal distal tibiofibular syndesmotic ligamentous complex. There is mild scarring with thickening of the anterior talofibular ligament consistent with a remote sprain. Normal subtalar ligaments and sinus tarsi. Normal deltoid ligamentous complexes. Normal plantar calcaneonavicular (spring) ligament. Normal tibiotalar articulation. Normal talar dome. Normal subtalar articulations. Normal talonavicular articulation. Normal calcaneocuboid articulation. Normal navicular-cuneiform articulations. MRI/Lower Ext Joint Only (Routine) IMPRESSION: 1. A nonhealed mildly displaced oblique fracture is present through the distal shaft of the fibula terminating just above the lateral malleolus. 2. Moderate subcutaneous edema is seen on the medial side of ankle joint and mild edema is present on the lateral side. Mild intramuscular edema is present on the medial side of the calcaneus. No discrete fluid collection is present. 3. Mild scarring on the anterior talofibular ligament. Electronically Signed: Randall Munoz MD at 16:23 EDT , Service support ,
== END | disposition home or self-care (01) ==
LOC: MRI 12:39
PROVIDERS: PCP Family Medicine; Referring Provider Podiatrist; Visit Provider Podiatrist
DX: S96.812A Strain of other specified muscles and tendons at ankle and foot level, left foot, initial encounter (principal); S82.402A Unspecified fracture of shaft of left fibula, initial encounter for closed fracture; M72.2 Plantar fascial fibromatosis
CPT/HCPCS: 73721

== ENCOUNTER → 2019-11-30 | Outpatient (CLI) | payer MEDICAID, SELFPAY ==
[2019-11-19 13:15] VITALS: BMI 40.2
[2019-11-30 15:07] LABS: Vitamin D,25 Hydroxy 31.2 ng/mL
[2019-11-30 15:14] LABS: ALB/GLOB Ratio 0.9 RATIO (0.9-2.4); AST(SGOT) 11 U/L (15-37); Alanine Aminotransfer ALT/SGPT 22 U/L (13-56); Albumin, Serum 3.5 g/dL (3.2-5.0); Alkaline Phosphatase 169 U/L (45-117); Anion Gap 8 (5-15); BUN 12 mg/dL (7-18); BUN/Creat Ratio 17.6 RATIO (10-20); Calcium,Total 9.1 mg/dL (8.5-10.1); Chloride 104 mmol/L (98-107); Creatinine, Serum 0.68 mg/dL (0.55-1.02); EST Glomerular Filtration Rate 94 mL/min (>60); Est Glom Filt Rate - Afr Amer 113 mL/min (>60); Ferritin 42 ng/mL (8-252); Globulin 3.7 g/dL (2.2-4.2); Glucose 107 mg/dL (74-106); Potassium 3.7 mmol/L (3.5-5.1); Protein, Total 7.2 g/dL (6.4-8.2); Sodium Level 138 mmol/L (136-145)
[2019-12-03 14:07] LABS: Creatine Kinase MB 0 % (0-3); Creatine Kinase MM 100 % (97-100); Macro I 0 % (Not Observed); Macro II 0 % (Not Observed)
[2019-12-03 20:57] LABS: Creatine Kinase BB 0 % (0); Creatine Kinase,Total,Serum 53 U/L (32-182)
== END | disposition home or self-care (01) ==
LOC: LAB 13:22
PROVIDERS: PCP Family Medicine; Referring Provider Podiatrist; Visit Provider Podiatrist
DX: E55.9 Vitamin D deficiency, unspecified (principal); R25.2 Cramp and spasm
CPT/HCPCS: 36415; 80053; 82306; 82550; 82552; 82728; 83735

== ENCOUNTER → 2019-12-24 14:53 | Outpatient (CLI) | payer MEDICAID, SELFPAY ==
[2019-11-19 13:15] VITALS: BMI 40.2
--- NOTE | 2019-12-24 14:54 | BI_ITS ---
MAMMOGRAPHY - BILATERAL SCREENING REASON FOR EXAM: Female, 59 years old. Routine annual screening examination. PERTINENT HISTORY: Non-contributory. Remote left breast biopsies and right excisional breast biopsy. TECHNIQUE: Digital bilateral breast safia (3D mammographic acquisition) in the CC and MLO projections. 2-D mediolateral oblique (MLO) and craniocaudad (CC) views of both breasts were obtained. CAD: Full Field Digital Mammography with Computer Added Detection was performed. COMPARISON: Comparison is made with prior study dated June 15, 2018. FINDINGS: Breast Composition: The breasts are heterogeneously dense, which may obscure small masses. There are no dominant masses or suspicious calcifications. Once again, there are 3 adjacent tissue clip marker is in the superior slightly lateral aspect of the left breast. Stable small bilateral benign-appearing axillary nodes. No other significant abnormalities are identified. There has been no significant change since the prior study. BI/SCREEN MAMM (CAD) W/SAFIA BILAT IMPRESSION: Stable bilateral screening mammogram. Yearly follow-up mammogram recommended. (A) ASSESSMENT CATEGORY: BIRADS Category 2: Benign. A letter regarding these results will be sent to the patient by the facility within 30 days. Approximately 10% of breast cancers are not detected by mammography. A normal mammogram should not delay biopsy of a clinically suspicious abnormality. [id number] Electronically Signed: Klaus Bergman, at 15:44 EDT , Service support ,
== END ==
PROVIDERS: PCP Family Medicine; Referring Provider Family Medicine; Visit Provider Family Medicine
DX: Z12.31 Encounter for screening mammogram for malignant neoplasm of breast (principal)
CPT/HCPCS: 77063; 77067

== ENCOUNTER 2020-01-03 17:10 | Observation (INO) | payer MEDICAID, SELFPAY ==
[2019-11-19 13:15] VITALS: BMI 40.2
[2020-01-03 17:11] VITALS: BP 156/105; PULSE 94; RESP 17; TEMP 36.1; O2SAT 95; BMI 41.4
[2020-01-03 17:16] VITALS: BP 148/82
--- NOTE | 2020-01-03 17:23 | CT_ITS ---
STUDY: CT ABDOMEN AND PELVIS WITH CONTRAST REASON FOR EXAM: Female, 59 years old. UMBILICAL ABDOMEN PAIN X 5 MONTHS WORSENED TODAY. 15.3 WBC RADIATION DOSAGE (If Supplied By Facility): CTDIvol = ( 20.15 ) mGy, DLP = ( 1070.70 ) mGycm TECHNIQUE: Transaxial images were obtained from the dome of the diaphragm to the symphysis pubis without oral contrast. IV 100mL Isovue-370 was administered. Sagittal and coronal images were reconstructed. Individualized dose optimization techniques were used for this CT. COMPARISON: 05/16/2019 FINDINGS: The visualized lung bases are unremarkable. The visualized portions of the heart are within normal limits. 2 stable liver cysts, otherwise unremarkable liver. Normal gallbladder and extrahepatic biliary system. Normal spleen. Normal pancreas. Normal bilateral adrenal glands. Normal right kidney. Normal left kidney. Normal visualized stomach. Normal small intestine. Normal colon. There are surgical clips in the region of the appendix consistent with a prior appendectomy. Normal abdominal aorta. Normal inferior vena cava. Normal retroperitoneum. Normal urinary bladder. Cystic left adnexa measures up to 4 cm. Hysterectomy. There is a ventral hernia containing small bowel and mesentery with the neck measuring approximately 3.4 cm. Normal osseous structures. CT/Abdomen/Pelvis WITH Contrast IMPRESSION: Moderate size ventral hernia containing mesentery and small bowel without evidence for associated bowel obstruction. This hernia is new compared to the prior examination of May 16, 2019. Correlate clinically for incarceration. Electronically Signed: Gerson Molina, at 19:56 EDT Tel , Service support ,
--- NOTE | 2020-01-03 17:24 | ED.DCSUM_ITS ---
History of Present Illness Chief Complaint: Abd Pain Informant: Patient Onset: Days Context: Gradual Onset Timing: Continuous Current Severity: Moderate Maximum Severity: Moderate Narrative: The patient presents to the emergency department abdominal pain. The patient underwent laparoscopic appendectomy in April. She states about 3 months later, she began to have abdominal pain around her umbilical incision. She states over the past 2 days, the pain is worsened. She states she sneezed, and felt a tearing sensation. She has been nauseated without vomiting. She states she is moving her bowels without issue. She denies any fevers or chills. She denies any difficulty urinating. She states she is otherwise been in her normal state of health. Prior similar symptoms: No Recent Illness/Hospitalization: No Past Medical History - Allergies and Home Meds Allergies/Adverse Reactions: Allergies aloe vera Allergy (Verified 01/03/20 17:11) Other ARANA SKIN doxycycline Allergy (Verified 01/03/20 17:11) Other SEVERE YEAST INFECTION hydrocodone bitartrate [From Vicodin] Allergy (Verified 01/03/20 17:11) Upset Stomach oxycodone HCl [From Percocet] Allergy (Verified 01/03/20 17:11) Other HALUCINATE Penicillins Allergy (Verified 01/03/20 17:11) yeast infection propoxyphene HCl [From Darvon] Allergy (Verified 01/03/20 17:11) Vomiting levofloxacin [From Levaquin] Adverse Reaction (Verified 01/03/20 17:11) Diarrhea Prior records reviewed: Yes Past Medical History: - - Back pain, hypertension Surgical History: noncontributory Smoking Status: Current every day smoker Review of Systems General: Denies: Chills, Fever, Sweats Eyes: Denies: Visual changes - bilaterally, Diplopia ENT: Denies: Rhinorrhea, Sore throat Cardiovascular: Denies: Chest pain, Palpitations Respiratory: Denies: Dyspnea, Cough, Dyspnea on exertion Gastrointestinal: Reports: Abdominal pain, Nausea. Denies: Vomiting, Diarrhea, Melena, Hematochezia Genitourinary: Denies: Dysuria, Hematuria, Frequency Musculoskeletal: Denies: Back pain, Extremity Pain Skin: Denies: Rash, Wounds Neurological: Denies: Headache, Weakness, Numbness Physical Exam Vital Signs/Narrative: Vital Signs Temp Pulse Resp BP Pulse Ox 01/03/20 17:16 148/82 H 06/18/20 17:11 97.0 F L 94 17 156/105 H 95 Inital Vital Signs reviewed: Yes General: Well nourished, Well developed, No Acute Distress Head: Normocephalic, Atraumatic Eyes: Perrl, EOMI ENT: Moist mucous membranes, No rhinorrhea Neck: Supple, Nontender Cardiovascular: Regular rate, Regular rhythm, No murmurs Respiratory: No distress, CTA bilaterally, Chest nontender Abdomen: Soft, Nondistended, Normal bowel sounds, Tender. Negative for: Guarding, Rebound tenderness Back: Nontender, Normal Inspection Extremities: Nontender, No edema Skin: Normal color, No rash Neurological: Alert, Oriented x3, Cranial nerves II-XII grossly intact, Normal Strength, Normal Sensation Psychological: Normal affect, Normal Mood Diagnostic/Tx/Re-eval Clinical Impression(s) from Imaging Studies Abdomen/Pelvis CT 01/03/20 17:23 IMPRESSION: Moderate size ventral hernia containing mesentery and small bowel without evidence for associated bowel obstruction. This hernia is new compared to the prior examination of May 16, 2019. Correlate clinically for incarceration. Electronically Signed: Gerson Molina, at 19:56 EDT Tel , Service support , Abnormal Lab Results 01/03/20 01/03/20 01/03/20 17:25 17:30 17:30 WBC 15.3 H RBC 4.83 Hgb 14.9 Hct 44.7 MCV 92.5 MCH 30.8 MCHC 33.3 RDW Std Deviation 43.8 RDW Coeff of Kayla 12.9 Plt Count 347 MPV 8.9 Immature Gran % (Auto) 1.000 H Neut % (Auto) 79.1 H Lymph % (Auto) 14.1 L Armstrong % (Auto) 4.9 Eos % (Auto) 0.4 Baso % (Auto) 0.5 Absolute Neuts (auto) 12.1 H Absolute Lymphs (auto) 2.16 Nucleated RBC % 0 Sodium 140 Potassium 3.7 Chloride 107 Carbon Dioxide 27.0 Anion Gap 6 BUN 10 Creatinine 0.78 Estim Creat Clear Calc 63.45 Est GFR (MDRD) Af Amer 97 Est GFR (MDRD) Non-Af 81 BUN/Creatinine Ratio 12.9 Glucose 124 H Calcium 9.2 Total Bilirubin 0.50 AST 18 ALT 26 Alkaline Phosphatase 174 H Total Protein 8.0 Albumin 3.7 Globulin 4.3 H Albumin/Globulin Ratio 0.9 Lipase 63 L Urine Color Yellow Urine Clarity Sl. Cloudy Urine pH 7.0 Ur Specific [place] 1.005 Urine Protein Negative Urine Glucose (UA) Normal Urine Ketones Negative Urine Occult Blood Negative Urine Nitrite Negative Urine Bilirubin Negative Urine Urobilinogen Normal Ur Leukocyte Esterase Negative Urine RBC 0 SEEN Urine WBC 0 SEEN Ur Squamous Epith Cells 0-5 SEEN Amorphous Sediment 1+ PHOS Urine Bacteria 0 SEEN Urine Mucus 0 SEEN - Medical Decision Making The patient presents with abdominal pain that has been going on for 5 months, but is now worsened over the past 2 days. She is tender just above her umbilical incision. I cannot feel a definitive hernia, but this is obviously my concern. Labs were obtained which do show mild leukocytosis but without is unremarkable. Patient underwent CT abdomen pelvis which does show umbilical hernia that it does appear to be incarcerated, but there is no strangulation or evidence of bowel obstruction. Given the patient's pain I did discuss her case with Dr. ocampo from, the patient surgeon. She will be admitted for pain control with plan to reevaluate tomorrow to determine if she needs operative fixation. Impression 1. Incarcerated umbilical hernia ED Disposition - Plan for ED Patient:
[2020-01-03] MEDS: Ondansetron 4 MG/2 ML Vial IV ×2 (17:32→23:58)
[2020-01-03] MEDS: 0.9% Normal Saline 1,000 ML 1000 ML IV (17:32)
[2020-01-03] MEDS: Morphine 4 MG/ML Syringe IV ×2 (17:33→19:21)
[2020-01-03 17:46] LABS: Bacteria 0 SEEN /hpf (None Seen); Mucous, Urine 0 SEEN /hpf (<or=2+); Red Blood Cells-Urine 0 SEEN /hpf (0-5); White Blood Cells 0 SEEN /hpf (0-5)
[2020-01-03 17:48] LABS: Absolute Lymphocyte Count 2.16 X10^3/uL (0.83-4.51); Absolute Neutrophil Count 12.1 X10^3/uL (2.0-7.7); Basophil# 0.07 X10^3/uL; Basophil% 0.5 % (0-1); Eosinophil# 0.06 X10^3/uL; Eosinophils% 0.4 % (0-5); Hematocrit 44.7 % (37-47); Hemoglobin 14.9 g/dL (12.0-15.0); Lymphocyte # 2.16 X10^3/ul (4.0); Lymphocyte % 14.1 % (19-41); Mean Corp Hgb Conc 33.3 g/dL (32-36); Mean Corpuscular Hgb 30.8 pg (27.0-32.0); Mean Corpuscular Volume 92.5 fL (81-99); Mean Platelet Vol. 8.9 fl (6.2-12.0); Monocyte# 0.75 X10^3/uL; Monocyte% 4.9 % (0-10); NRBC Flagged by Analyzer 0 % (0-5); Neutrophil # 12.08 X10^3/uL (2.7-7.7); Neutrophil % 79.1 % (47-70); Platelet Count 347 K/mm3 (150-450); RBC Distribution Width CV 12.9 % (11.6-14.6); RBC Distribution Width SD 43.8 fl (35.1-43.9); Red Blood Count 4.83 M/mm3 (4.2-5.4); White Blood Count 15.3 K/mm3 (4.4-11.0)
[2020-01-03 17:50] LABS: Color, Urine Yellow (Yellow); Glucose, Dipstick Normal (Normal); Ketone-Dipstick Negative (Negative); Leukocyte Esterase-Dipstick Negative /ul (Negative); Nitrite-Dipstick Negative (Negative); Occult Blood-Urine Negative /ul (Negative); Protein-Dipstick Negative (Negative); Specific Gravity, Urine 1.005 (1.002-1.030); Urine Bilirubin Dipstick Negative (Negative); Urine Clarity Sl. Cloudy (Clear); Urine Urobilinogen Normal (Normal)
[2020-01-03 18:00] LABS: Amorphous Sediment 1+ PHOS; Squamous Epithelial Cells - UA 0-5 SEEN /hpf (5-10)
[2020-01-03 18:10] LABS: ALB/GLOB Ratio 0.9 RATIO (0.9-2.4); AST(SGOT) 18 U/L (15-37); Alanine Aminotransfer ALT/SGPT 26 U/L (13-56); Albumin, Serum 3.7 g/dL (3.2-5.0); Alkaline Phosphatase 174 U/L (45-117); Anion Gap 6 (5-15); BUN 10 mg/dL (7-18); BUN/Creat Ratio 12.9 RATIO (10-20); Calcium,Total 9.2 mg/dL (8.5-10.1); Chloride 107 mmol/L (98-107); Creatinine, Serum 0.78 mg/dL (0.55-1.02); EST Glomerular Filtration Rate 81 mL/min (>60); Est Glom Filt Rate - Afr Amer 97 mL/min (>60); Estimated Creatinine Clearance 63.45 ml/min; Globulin 4.3 g/dL (2.2-4.2); Glucose 124 mg/dL (74-106); Lipase 63 U/L (73-393); Potassium 3.7 mmol/L (3.5-5.1); Sodium Level 140 mmol/L (136-145)
[2020-01-03 19:22] VITALS: BP 122/71; PULSE 80; RESP 20; O2SAT 98
[2020-01-03 20:08] VITALS: BP 128/76; PULSE 74; RESP 18; TEMP 36.5; O2SAT 93
--- NOTE | 2020-01-03 20:49 | HP.PCM_ITS ---
History of Present Illness Date of Admission: 01/03/20 The patient is a 59 year old F presents the ER due to supraumbilical abdominal pain which patient states been ongoing for about 5 months however today it was worse she rates it a 10/10. Patient states that with sneezing also made it worse. Patient denies any vomiting is having bowel function normally. Patient does have some nausea but usually occurs with the pain. Patient CT abdomen pelvis did show an incarcerated incisional hernia that does not appear to be obstructed. Past Medical History Past Medical History (Chronic Problems): Chronic Problems (Last Reviewed 05/30/19 @ 14:02 by Danielle Boyle) Hirsutism (Chronic) Hyperhidrosis (Chronic) Patient has hyperhidrosis she has a long history of excessive sweating. Recurrent herpes simplex (Chronic) Patient has a history of recurrent herpes simplex she uses Zovirax cream but she wonders if she can get on an oral medication to prevent these problems rather than treat them after they occur. Bilateral headaches (Chronic) She claims she has bilateral stabbing headaches basically bitemporal headaches that are very severe but she is had them for a long period of time. MRI was ordered as she has not had any immaging studies Pain in left lower leg (Chronic) Couple of months ago she ran into a railing with her left leg, x-rays have been normal. Radicular low back pain (Chronic) She complains of what she describes as sciatica she does have bilateral radicular leg pain but there is nothing on examination that would make me suspicious of sciatica. GERD (gastroesophageal reflux disease) (Chronic) Patient has a long history of esophageal reflux she takes Nexium and the prescription has gone through Abdominal bloating with cramps (Chronic) Patient has a long-standing history of bloating after she eats, all of her blood work was normal, will try her on creon, and see if that helps Medical History: Medical History (Last Reviewed 05/30/19 @ 14:02 by Danielle Boyle) Abnormal colonoscopy R93.3 adenoma, 2016, repeat in 3 years Acute asthma J45.909 Arthritis M19.90 Carpal tunnel syndrome G56.00 Environmental allergies Z91.09 GERD (gastroesophageal reflux disease) K21.9 High cholesterol E78.00 High triglycerides E78.1 History Valvular Surgery History of cancer of vulva Z85.44 Hx TIA/stroke w/o resid Z86.73 Hx of colon cancer, stage I Z85.038 IBS (irritable bowel syndrome) K58.9 Sleep apnea G47.30 Seasonal allergies J30.2 Allergies aloe vera Allergy (Verified 01/03/20 17:11) Other ARANA SKIN doxycycline Allergy (Verified 01/03/20 17:11) Other SEVERE YEAST INFECTION hydrocodone bitartrate [From Vicodin] Allergy (Verified 01/03/20 17:11) Upset Stomach oxycodone HCl [From Percocet] Allergy (Verified 01/03/20 17:11) Other HALUCINATE Penicillins Allergy (Verified 01/03/20 17:11) yeast infection propoxyphene HCl [From Darvon] Allergy (Verified 01/03/20 17:11) Vomiting levofloxacin [From Levaquin] Adverse Reaction (Verified 01/03/20 17:11) Diarrhea Home Medications: Ambulatory Orders Medication Instructions Recorded esomeprazole magnesium 20 mg 20 mg PO BID #180 cap 10/03/18 capsule,delayed release Buspirone HCl 7.5 mg PO BID 03/09/19 Rosuvastatin Calcium 10 mg PO .Q4DAYS 03/09/19 gabapentin 300 mg capsule 300 mg PO Q8H #90 cap 07/17/19 L.acidoph,Paracasei, B.lactis 1 ea PO DAILY 08/09/19 [Probiotic] Multivit-Min/FA/Lycopen/Lutein 1 ea PO DAILY 01/03/20 [Century Adults 50+ Tablet] Tizanidine HCl [Zanaflex] 4 mg PO BID 01/03/20 Valacyclovir HCl [Valacyclovir] 500 mg PO DAILY 01/03/20 Fluconazole [Diflucan] 150 mg PO X1 #1 tab 01/04/20 traMADol [Ultram (G)] 50 - 100 mg PO Q6H PRN PRN 4 Days 01/04/20 #25 tablet Surgical History: Surgical History (Last Reviewed 05/30/19 @ 14:02 by Danielle Boyle) History of bladder surgery Z98.890 History of breast surgery Z98.890 History of cardiac cath Z98.890 due to false positive on stress test History of carpal tunnel release Z98.890 History of cataract surgery Z98.49 History of cornea transplant Z94.7 History of esophagogastroduodenoscopy (EGD) Z98.890 2013 History of esophagogastroduodenoscopy (EGD) Onset Date: ~07/05/18 Z98.890 History of nasal septoplasty Z98.890 History of partial hysterectomy Z90.711 S/P colonoscopy Onset Date: ~07/05/18 Z98.890 history of bladder sling Surgical History: noncontributory Lives: Spouse/ Significant Other Smoking Status: Current every day smoker Tobacco Use: Cigarettes - *Family History Maternal Family History: Family History (Last Reviewed 05/30/19 @ 14:02 by Danielle Boyle) Other Alcoholism Alzheimer disease Anxiety Arthritis Asthma Breast cancer Cervical cancer Colon cancer Depression Heart disease High cholesterol Lung cancer Suicidal behavior History Items: No pertinent history Review of Systems Constitutional: Reports: Anorexia HEENT: Denies: Difficulty Swallowing Cardiovascular: Denies: Chest Pain Gastrointestinal: Reports: Abdominal Pain, Nausea, Vomiting VTE Information - Inpt Only VTE Present on Admission: Yes VTE Mechan Device Prophylaxis: SCD's - Physical Exam Vitals/I&O's: Vital Signs Temp Pulse Resp BP Pulse Ox 97.0 F L 80 20 H 122/71 H 98 01/03/20 17:11 01/03/20 19:22 01/03/20 19:22 01/03/20 19:22 01/03/20 19:22 Oxygen Delivery Method Room Air Weight: 233 lb 14.567 oz Body Mass Index (BMI) 41.4 Intake and Output for Last 24 Hours 01/01/20 01/02/20 01/03/20 23:59 23:59 23:59 Intake Total 1000 / 1000 Balance 1000 / 1000 General: Alert, Oriented x3, Cooperative, No apparent distress HEENT: Atraumatic Lungs: Normal air movement Cardiovascular: Regular rate Abdomen: Soft, Non-Distended, Obese, Tender - Supraumbilical midline, due to body habitus unable to discretely feel the hernia defect or if anything is able to be reduced, no guarding Extremities: No clubbing, No cyanosis Neurological: Cranial nerves II-XII grossly intact Psych/Mental Status: Normal Affect Laboratory Results 01/03/20 17:25: Urine Color Yellow, Urine Clarity Sl. Cloudy, Urine pH 7.0, Ur Specific [place] 1.005, Urine Protein Negative, Urine Glucose (UA) Normal, Urine Ketones Negative, Urine Occult Blood Negative, Urine Nitrite Negative, Urine Bilirubin Negative, Urine Urobilinogen Normal, Ur Leukocyte Esterase Negative, Urine RBC 0 SEEN, Urine WBC 0 SEEN, Ur Squamous Epith Cells 0-5 SEEN, Amorphous Sediment 1+ PHOS, Urine Bacteria 0 SEEN, Urine Mucus 0 SEEN 01/03/20 17:30: WBC 15.3 H, RBC 4.83, Hgb 14.9, Hct 44.7, MCV 92.5, MCH 30.8, MCHC 33.3, RDW Std Deviation 43.8, RDW Coeff of Kayla 12.9, Plt Count 347, MPV 8.9, Immature Gran % (Auto) 1.000 H, Neut % (Auto) 79.1 H, Lymph % (Auto) 14.1 L , [place] % (Auto) 4.9, Eos % (Auto) 0.4, Baso % (Auto) 0.5, Absolute Neuts (auto) 12.1 H, Absolute Lymphs (auto) 2.16, Nucleated RBC % 0 01/03/20 17:30: Sodium 140, Potassium 3.7, Chloride 107, Carbon Dioxide 27.0, Anion Gap 6, BUN 10, Creatinine 0.78, Estim Creat Clear Calc 63.45, Est GFR (MDRD) Af Amer 97, Est GFR (MDRD) Non-Af 81, BUN/Creatinine Ratio 12.9, Glucose 124 H, Calcium 9.2, Total Bilirubin 0.50, AST 18, ALT 26, Alkaline Phosphatase 174 H, Total Protein 8.0, Albumin 3.7, Globulin 4.3 H, Albumin/Globulin Ratio 0.9, Lipase 63 L Assessment/Plan All Active Problems (Last Reviewed 05/30/19 @ 14:02 by Danielle Boyle) Segmental and somatic dysfunction of cervical region (Acute) Segmental and somatic dysfunction of pelvic region (Acute) Segmental and somatic dysfunction of thoracic region (Acute) Segmental and somatic dysfunction of lumbar region (Acute) 59-year-old female with incisional hernia 1. Will admit patient n.p.o. IV fluids, plan for surgery tomorrow for an open incisional hernia repair with possible mesh. Discussed the procedure including risk but not limited to bleeding, infection, injury to another organ, recurrence of unable to use mesh. Patient was agreeable with plan all questions were answered. Mirela Pugh M.D. Pager: [phone] [facility] [address] [place] [address], [address] [place] [address] Office: [phone] Procedure Criteria Procedure Type: Essential Procedure Essential: Yes Criteria Statement: On 10/02/2019 the [facility] of Health ([facility]) Public Order signed by [facility] Director Rebeka Driscoll M.D., regarding the Management of Non-Essential Surgeries and Procedures for the purpose of preserving Personal Protective Equipment (PPE) and critical hospital capacity and resources within [place] went into effect as of 10/03/2019 at 5:00PM. According to the [facility] Public Order: This action will remain in full force and effect until the State of Emergency declared by the Governor no longer exists or the Director of the [facility] rescinds or modifies this Order. This [facility] order stated all non-essential or elective surgeries and procedures that utilize PPE should be delayed unless there is undue risk to the current or future health of a patient. After reviewing the aforementioned [facility] Public Order and the patient's clinical case, I have determined that the scheduled procedure meets the criteria to go forward. Risk to Patient if Procedure Delayed: Risk of rapidly worsening to severe symptoms if delayed
--- NOTE | 2020-01-03 21:12 | EKG12_ITS ---
Test Reason : PRE-OP Blood Pressure : / mmHG Vent. Rate : 063 BPM Atrial Rate : 063 BPM P-R Int : 146 ms QRS Dur : 084 ms QT Int : 384 ms P-R-T Axes : 049 025 036 degrees QTc Int : 392 ms Normal sinus rhythm Normal ECG When compared with ECG of 20-MAY-2014 16:19, No significant change was found Confirmed by GIDEON GARVEY, MAURICIO ([id number]), managing editor JAMEL OMER ([id number]) on 01/08/2020 11:03:07 AM Referred By: DR AU Confirmed By:MAURICIO MENESES MD
[2020-01-03 21:13] VITALS: BMI 41.1
[2020-01-03 21:17] VITALS: BP 146/73; PULSE 77; RESP 18; TEMP 36.6; O2SAT 96
[2020-01-03 21:26] VITALS: BMI 41.1
[2020-01-03] MEDS: tiZANidine HCl 2 MG Tablet 4 MG PO (22:18)
[2020-01-03] MEDS: Pantoprazole Sodium 20 MG Tablet PO (22:19)
[2020-01-03] MEDS: Gabapentin 300 MG Capsule PO (22:19)
[2020-01-03] MEDS: busPIRone 5 MG Tablet 7.5 MG PO (22:19)
[2020-01-03] MEDS: HYDROmorphone 0.5 MG/0.5 ML SYRINGE IV (22:21)
[2020-01-03] MEDS: 0.9% Saline Lock 10 ML Syringe IV ×2 (22:27→23:58)
[2020-01-04] VITALS (13 sets, daily range): BP systolic 115–146; BP diastolic 52–86; PULSE 60–84; RESP 16–20; TEMP 36.1–37; O2SAT 86–95; BMI 41.1
[2020-01-04] MEDS: 0.9% Saline Lock 10 ML Syringe IV (03:47)
[2020-01-04] MEDS: Gabapentin 300 MG Capsule PO ×2 (06:17→13:37)
[2020-01-04 07:05] LABS: Absolute Lymphocyte Count 1.88 X10^3/uL (0.83-4.51); Absolute Neutrophil Count 10.3 X10^3/uL (2.0-7.7); Basophil# 0.03 X10^3/uL; Basophil% 0.2 % (0-1); Eosinophil# 0.07 X10^3/uL; Eosinophils% 0.5 % (0-5); Hematocrit 42.1 % (37-47); Hemoglobin 13.6 g/dL (12.0-15.0); Lymphocyte # 1.88 X10^3/ul (4.0); Lymphocyte % 14.2 % (19-41); Mean Corp Hgb Conc 32.3 g/dL (32-36); Mean Corpuscular Volume 95.9 fL (81-99); Mean Platelet Vol. 9.1 fl (6.2-12.0); Monocyte% 6.1 % (0-10); NRBC Flagged by Analyzer 0 % (0-5); Neutrophil # 10.33 X10^3/uL (2.7-7.7); Neutrophil % 78.3 % (47-70); Platelet Count 312 K/mm3 (150-450); RBC Distribution Width CV 13.2 % (11.6-14.6); RBC Distribution Width SD 46.2 fl (35.1-43.9); Red Blood Count 4.39 M/mm3 (4.2-5.4); White Blood Count 13.2 K/mm3 (4.4-11.0)
[2020-01-04 07:18] LABS: Anion Gap 4 (5-15); BUN 11 mg/dL (7-18); BUN/Creat Ratio 15.2 RATIO (10-20); Calcium,Total 8.8 mg/dL (8.5-10.1); Chloride 107 mmol/L (98-107); Creatinine, Serum 0.73 mg/dL (0.55-1.02); EST Glomerular Filtration Rate 87 mL/min (>60); Est Glom Filt Rate - Afr Amer 105 mL/min (>60); Estimated Creatinine Clearance 64.82 ml/min; Glucose 107 mg/dL (74-106); Potassium 4.1 mmol/L (3.5-5.1); Sodium Level 141 mmol/L (136-145); Thyroid Stim Hormone (TSH) 1.49 uIU/mL (0.358-3.74)
[2020-01-04] MEDS: Pantoprazole Sodium 20 MG Tablet PO (07:31)
[2020-01-04] MEDS: Ondansetron 4 MG/2 ML Vial IV (07:31)
--- NOTE | 2020-01-04 08:33 | NURSING ---
0881 pt transported off unit via bed for surgery
--- NOTE | 2020-01-04 08:36 | PCM.PN.SRG ---
Subjective: Patient states her abdominal pain is improved, patient is headed down for AC for surgery at 9 AM. - Physical Exam Vitals/I&O's: Vital Signs Temp Pulse Resp BP Pulse Ox 97.6 F L 76 16 134/67 H 95 01/04/20 07:52 01/04/20 07:52 01/04/20 07:52 01/04/20 07:52 01/04/20 07:52 Oxygen Flow Rate (L/min) 2 Oxygen Delivery Method Nasal Cannula Weight: 231 lb 14.821 oz Body Mass Index (BMI) 41.1 Intake and Output for Last 24 Hours 01/02/20 01/03/20 01/04/20 23:59 23:59 23:59 Intake Total 1000 / 1000 50 / 50 Output Total 850 / 850 Balance 1000 / 1000 -800 / -800 General: Alert, Oriented x3, Cooperative, No apparent distress HEENT: Atraumatic Lungs: Normal air movement Cardiovascular: Regular Rhythm Abdomen: Soft, Non-Distended, Tender - Supraumbilical at hernia site unable to discretely feel hernia due to body habitus Neurological: Cranial nerves II-XII grossly intact Psych/Mental Status: Normal Affect Laboratory Results 01/03/20 17:25: Urine Color Yellow, Urine Clarity Sl. Cloudy, Urine pH 7.0, Ur Specific [place] 1.005, Urine Protein Negative, Urine Glucose (UA) Normal, Urine Ketones Negative, Urine Occult Blood Negative, Urine Nitrite Negative, Urine Bilirubin Negative, Urine Urobilinogen Normal, Ur Leukocyte Esterase Negative, Urine RBC 0 SEEN, Urine WBC 0 SEEN, Ur Squamous Epith Cells 0-5 SEEN, Amorphous Sediment 1+ PHOS, Urine Bacteria 0 SEEN, Urine Mucus 0 SEEN 01/03/20 17:30: WBC 15.3 H, RBC 4.83, Hgb 14.9, Hct 44.7, MCV 92.5, MCH 30.8, MCHC 33.3, RDW Std Deviation 43.8, RDW Coeff of Kayla 12.9, Plt Count 347, MPV 8.9, Immature Gran % (Auto) 1.000 H, Neut % (Auto) 79.1 H, Lymph % (Auto) 14.1 L, [place] % (Auto) 4.9, Eos % (Auto) 0.4, Baso % (Auto) 0.5, Absolute Neuts (auto) 12.1 H, Absolute Lymphs (auto) 2.16, Nucleated RBC % 0 01/03/20 17:30: Sodium 140, Potassium 3.7, Chloride 107, Carbon Dioxide 27.0, Anion Gap 6, BUN 10, Creatinine 0.78, Estim Creat Clear Calc 63.45, Est GFR (MDRD) Af Amer 97, Est GFR (MDRD) Non-Af 81, BUN/Creatinine Ratio 12.9, Glucose 124 H, Calcium 9.2, Total Bilirubin 0.50, AST 18, ALT 26, Alkaline Phosphatase 174 H, Total Protein 8.0, Albumin 3.7, Globulin 4.3 H, Albumin/Globulin Ratio 0.9, Lipase 63 L 01/03/20 20:34: COVID-19 ([facility]) Not Detected 01/04/20 06:20: WBC 13.2 H, RBC 4.39, Hgb 13.6, Hct 42.1, MCV 95.9, MCH 31.0, MCHC 32.3, RDW Std Deviation 46.2 H, RDW Coeff of Kayla 13.2, Plt Count 312, MPV 9.1, Immature Gran % (Auto) 0.700, Neut % (Auto) 78.3 H, Lymph % (Auto) 14.2 L, [place] % (Auto) 6.1, Eos % (Auto) 0.5, Baso % (Auto) 0.2, Absolute Neuts (auto) 10.3 H, Absolute Lymphs (auto) 1.88, Nucleated RBC % 0 01/04/20 06:20: Sodium 141, Potassium 4.1, Chloride 107, Carbon Dioxide 30.0, Anion Gap 4 L, BUN 11, Creatinine 0.73, Estim Creat Clear Calc 64.82, Est GFR (MDRD) Af Amer 105, Est GFR (MDRD) Non-Af 87, BUN/Creatinine Ratio 15.2, Glucose 107 H, Calcium 8.8, TSH 1.49 Current Medications Acyclovir (Zovirax) 400 mg PO DAILY [facility] Atorvastatin Calcium (Lipitor) 10 mg PO .Q4DAYS [facility] Buspirone HCl (Buspar) 7.5 mg PO BID [facility] Last Admin: 01/03/20 22:19 Dose: 7.5 mg Documented by: Gabapentin (Neurontin) 300 mg PO Q8 [facility] Last Admin: 01/04/20 06:17 Dose: 300 mg Documented by: Hydromorphone HCl (Dilaudid Inj) 0.5 - 1 mg IV Q2H PRN PRN PRN Reason: Pain Score 1-10/10 Last Admin: 01/03/20 22:21 Dose: 1 mg Documented by: Sodium Chloride () 250 mls @ 15 mls/hr IV .[id number] PRN PRN Reason: Saline Flush Last Admin: 01/04/20 03:47 Dose: 15 mls/hr Documented by: Sodium Chloride () 250 mls @ 15 mls/hr IV .[id number] PRN PRN Reason: Additional IVPB Infusion Ondansetron HCl (Zofran) 4 mg IV Q6H PRN PRN PRN Reason: NAUSEA Last Admin: 01/04/20 07:31 Dose: 4 mg Documented by: Pantoprazole Sodium (Protonix) 20 mg PO BID [facility] Last Admin: 01/04/20 07:31 Dose: 20 mg Documented by: Sodium Chloride () 10 - 40 ml IV UD PRN PRN Reason: SALINE FLUSH Last Admin: 01/04/20 03:47 Dose: 10 ml Documented by: Tizanidine HCl (Zanaflex) 4 mg PO BID [facility] Last Admin: 01/03/20 22:18 Dose: 4 mg Documented by: Medical Necessity - Tobacco Use Smoking Status: Current every day smoker Tobacco Use: Cigarettes Assessment/Plan All Active Problems (Last Reviewed 05/30/19 @ 14:02 by Danielle Boyle) Segmental and somatic dysfunction of cervical region (Acute) Segmental and somatic dysfunction of pelvic region (Acute) Segmental and somatic dysfunction of thoracic region (Acute) Segmental and somatic dysfunction of lumbar region (Acute) 59-year-old female with incisional hernia 1. We will proceed with anopen incisional hernia repair with possible mesh. Patient no further questions this morning. Mirela Pugh M.D. Pager: [phone] [facility] [address] [place] [address], [address] [place] [address] Office: [phone]
--- NOTE | 2020-01-04 09:00 | HERN_PTH ---
PATIENT: DEVON BARAHONA LOC: MS3 U#:[id number] AGE/SX: 59/F ROOM: MS313 RE01/03/[address]: Dr. Mirela Pugh MD : 1960 BED: 1 DIS: 01/04/2020 SPEC #: [id number] RECD: 01/04/20 11:13 STATUS: MARCIA REQ #: [id number] ANGELINA: 01/04/20 09:[address]: Mirela Pugh DEPT: SURGICAL PATHOLOGY RECD BY: Juan Nguyen ENTERED: 01/04/20 13:10 SP TYPE: Hernia OTHR DR: Dr. Simone Isidro MD Tissues: HERNIA Procedures: Surgery Specimen Level II HEADER OPERATION: Incisional hernia repair PRE-OP DIAGNOSIS: Incisional hernia; supraumbilical abdominal pain TISSUE SUBMITTED: Hernia sac MICROSCOPIC DIAGNOSIS Hernia sac, herniorrhaphy: Fibrosis and minimal chronic inflammation. AM:juju 01/07/20 MICROSCOPIC DESCRIPTION Slides are reviewed. GROSS DESCRIPTION Received in fixative is one container labeled with the patient's name and designated hernia sac. The specimen consists of multiple irregular fragments of pink-yellow soft tissue that in aggregate measure 5.5 x 5.5 x 1 cm. No mass lesions are identified. Brim Ironer Hand sections are submitted in one cassette. / AM:juju 01/04/20 TC:5 CPT: 37537
--- NOTE | 2020-01-04 10:06 | PCM.OPRPT ---
Report of Operation Date of Procedure: 01/04/20 Pre-Operative Diagnosis: Incarcerated incisional hernia Post-Operative Diagnosis: Same Surgery/Procedure Performed:: Open incarcerated ventral hernia repair with mesh steam table associate: Jeffery Peters Type of Anesthesia:: General Anesthesiologist: Tony Long Special Medications: Clindamycin 900 mg IV x1 Specimen's removed: Hernia sac Estimated Blood Loss (mL): 10 cc Fluids Replaced: 1100 cc Description of Procedure: Patient was brought into the room placed supine on the operating table. Correct patient, procedure, site, positioning, special, was verified prior to procedure. General anesthesia was induced. The abdomen was prepped draped in usual sterile fashion. The previous supraumbilical incision was re-incised with a 15 blade scalpel. This was deepened with electrocautery. Circumferentially around the hernia defect and hernia sac was removed. The fascia around the hernia defect was cleared and the hernia defect measured 3 cm x [address] hernia patch medium 6.4 cm diameter (lot [id number] ref [id number]) was used. This was placed and assured to be laying flat. 0 Nurolon were used to secure the tails of the mesh to the fascia as well as additional 0 Nurolon's to close the hernia defects and secure mesh superiorly and inferiorly as well. The incision was irrigated with saline. Hemostasis was assured. The skin of the umbilicus was secured to the fascia using 3-0 Vicryl sutures interrupted ?2. The incision was closed with 3-0 Vicryl subdermal interrupted sutures and the skin was closed with interrupted 4-0 Monocryl sutures. 0.5% Marcaine with epinephrine was used for a total of 30 cc throughout the case. Steri-Strips and OpSite were placed over the incision. Patient was extubated. Patient tolerated procedure well and was taken to the postanesthesia care unit in stable condition. Grafts/Implants Used: Ventralex ST hernia patch medium 6.4 cm diameter (lot [id number] ref [id number]) - Complications none
--- NOTE | 2020-01-04 10:14 | DCINST_ITS ---
Discharge Diet: Light diet - advance as tolerated Discharge Activity: May not drive while taking narcotic pain medications. May shower in (days): 1 Lifting Restrictions: no lifting > 20 lb x 2 weeks Call your doctor if your incision/area has: Continuous Slow Oozing, Sudden Increased Bleeding, Increased Pain/ Swelling, Increased Redness, Foul Smelling Discharge, Swelling at the incision site Call your doctor if you observe: Fever of 101 or Higher Remove Dressing in (days):: 2 - Steris will stay on for 7 to 10 days if they do not fall off okay to remove after 10 days Additional Instructions: Abdominal binder for comfort only Allergies/Adverse Reactions: Allergies aloe vera Allergy (Verified 01/03/20 17:11) Other ARANA SKIN doxycycline Allergy (Verified 01/03/20 17:11) Other SEVERE YEAST INFECTION hydrocodone bitartrate [From Vicodin] Allergy (Verified 01/03/20 17:11) Upset Stomach oxycodone HCl [From Percocet] Allergy (Verified 01/03/20 17:11) Other HALUCINATE Penicillins Allergy (Verified 01/03/20 17:11) yeast infection propoxyphene HCl [From Darvon] Allergy (Verified 01/03/20 17:11) Vomiting levofloxacin [From Levaquin] Adverse Reaction (Verified 01/03/20 17:11) Diarrhea Medications to take at Discharge esomeprazole magnesium 20 mg capsule,delayed release 20 mg PO BID #180 cap 10/03/18 Buspirone HCl 7.5 mg PO BID 03/09/19 Rosuvastatin Calcium 10 mg PO .Q4DAYS 03/09/19 gabapentin 300 mg capsule 300 mg PO Q8H #90 cap 07/17/19 L.acidoph,Paracasei, B.lactis [Probiotic] 1 ea PO DAILY 08/09/19 Multivit-Min/FA/Lycopen/Lutein [Century Adults 50+ Tablet] 1 ea PO DAILY 01/03/20 Tizanidine HCl [Zanaflex] 4 mg PO BID 01/03/20 Valacyclovir HCl [Valacyclovir] 500 mg PO DAILY 01/03/20 Fluconazole [Diflucan] 150 mg PO X1 #1 tab 01/04/20 Meperidine HCl [Demerol] 100 mg PO Q6H PRN PRN 4 Days #20 tab 01/04/20 Primary Care Physician: Simone Isidro MD [Primary Care Provider] - Test Results: Test results from this visit will be discussed in further detail at your follow- up appointment, if applicable. Please Follow Up With: Mirela Pugh MD - After 5 PM and on the weekends call [phone] with any concerns When: Call the office for a follow-up appointment in 2 weeks virtual/phone. Proposed Discharge Date: 01/04/20
[2020-01-04] MEDS: Bupiv/Epi 0.5% Mpf 30 ML Vial (10:18)
--- NOTE | 2020-01-04 15:47 | CASEMGMT ---
CÉSAR MICHEL updated that patient will need home oxygen at discharge. Script received. [place] [facility] [place] to [facility] [place] and arranged for delivery to patient's room prior to discharge.
--- NOTE | 2020-01-04 15:56 | PCM.PN.BLA ---
Progress Note Due to hypoxia on room air, will arrange for temporary home oxygen, which pt also required for 1-2 weeks after lap appy in Apr 2019. Patient is currently on 3L NC, she will be set up with home oxygen with portability as she is ambulatory in home and the community. STROKE Vital Signs/Narrative: Vital Signs Temp Pulse Resp BP Pulse Ox Pulse Ox Pulse Ox 01/04/20 14:15 97.9 F 71 20 H 121/52 H 94 01/04/20 13:50 89 86 01/04/20 13:22 86 01/04/20 12:15 97.0 F L 75 16 127/86 H 92
== END 2020-01-04 17:31 | disposition home or self-care (01) ==
LOC: ED 17:48 → MS3 20:18
PROVIDERS: Admitting Provider Surgery; Emergency Provider Emergency Medicine; PCP Family Medicine; Visit Provider Surgery
PROC: (CPT 49561; principal; 2020-01-04 08:45)
DX: K43.0 Incisional hernia with obstruction, without gangrene (principal); I10 Essential (primary) hypertension; K21.9 Gastro-esophageal reflux disease without esophagitis; B00.9 Herpesviral infection, unspecified; E78.00 Pure hypercholesterolemia, unspecified; K58.9 Irritable bowel syndrome, unspecified; G47.30 Sleep apnea, unspecified; M19.90 Unspecified osteoarthritis, unspecified site; J45.909 Unspecified asthma, uncomplicated; Z79.899 Other long term (current) drug therapy; F17.210 Nicotine dependence, cigarettes, uncomplicated; M99.01 Segmental and somatic dysfunction of cervical region; M99.03 Segmental and somatic dysfunction of lumbar region; M99.05 Segmental and somatic dysfunction of pelvic region; M99.02 Segmental and somatic dysfunction of thoracic region
CPT/HCPCS: 49561; 49568; 36415; 74177; 80048; 80053; 81001; 83690; 84443; 85025; 87635; 88302; 93005; 96374; 96375; 96376; 99218; 99251; 99284; 99406; C1781; G2023; J7050; J7120; Q9967; A4216; G0378; G0463; J2405; U0003

== ENCOUNTER 2020-01-05 22:12 | Emergency (ER) | payer MEDICAID, SELFPAY ==
[2020-01-04 07:52] VITALS: BMI 41.1
[2020-01-05 22:13] VITALS: BP 146/87; PULSE 82; RESP 18; TEMP 36.3; O2SAT 95; BMI 41.1
--- NOTE | 2020-01-05 22:32 | RAD_ITS ---
STUDY: X-RAY CHEST REASON FOR EXAM: Female, 59 years old. Hernia repair yesterday, cough and spitting up blood since then. TECHNIQUE: PA and lateral views of the chest. COMPARISON: Previous study of 05/17/2019 FINDINGS: The lungs are clear and expanded. There is no demonstrated pleural abnormality. Normal size heart. Normal mediastinum and sera. Normal visualized pulmonary arteries. Normal visualized aortic arch and descending thoracic aorta. Normal visualized thoracic spine. Normal visualized ribs, clavicles, and shoulders. There is no demonstrated abnormality of the visualized soft tissue structures of the upper abdomen. RAD/Chest PA and Lateral IMPRESSION: Normal x-ray examination of the chest. Electronically Signed: Geovanni Alexander MD at 23:30 EDT , Service support ,
--- NOTE | 2020-01-05 22:33 | ED.VIS.GEN ---
History of Present Illness Chief Complaint: Cough Informant: Patient Narrative: Presents with mucus in her throat. She has been coughing up mucus since surgery yesterday. She is had some blood-tinged mucus. She has not overtly coughed up any blood. She stated this is happened multiple times throughout the day today. She is on no blood thinners. She had hernia surgery. She thinks is likely from the reading tube scratching her throat. She denies any chest pain or throat pain or difficulty breathing. Current severity is mild. - Past Medical History (1) Segmental and somatic dysfunction of cervical region Status: Acute (2) Segmental and somatic dysfunction of lumbar region Status: Acute (3) Segmental and somatic dysfunction of pelvic region Status: Acute (4) Segmental and somatic dysfunction of thoracic region Status: Acute (5) Abdominal bloating with cramps Status: Chronic Comment: Patient has a long-standing history of bloating after she eats, all of her blood work was normal, will try her on creon, and see if that helps (6) Bilateral headaches Status: Chronic Comment: She claims she has bilateral stabbing headaches basically bitemporal headaches that are very severe but she is had them for a long period of time. MRI was ordered as she has not had any immaging studies (7) GERD (gastroesophageal reflux disease) Status: Chronic Comment: Patient has a long history of esophageal reflux she takes Nexium and the prescription has gone through (8) Hirsutism Status: Chronic (9) Hyperhidrosis Status: Chronic Comment: Patient has hyperhidrosis she has a long history of excessive sweating. (10) Pain in left lower leg Status: Chronic Comment: Couple of months ago she ran into a railing with her left leg, x-rays have been normal. (11) Radicular low back pain Status: Chronic Comment: She complains of what she describes as sciatica she does have bilateral radicular leg pain but there is nothing on examination that would make me suspicious of sciatica. (12) Recurrent herpes simplex Status: Chronic Comment: Patient has a history of recurrent herpes simplex she uses Zovirax cream but she wonders if she can get on an oral medication to prevent these problems rather than treat them after they occur. Past Medical History - Allergies and Home Meds Allergies/Adverse Reactions: Allergies aloe vera Allergy (Verified 01/03/20 17:11) Other ARANA SKIN doxycycline Allergy (Verified 01/03/20 17:11) Other SEVERE YEAST INFECTION hydrocodone bitartrate [From Vicodin] Allergy (Verified 01/03/20 17:11) Upset Stomach oxycodone HCl [From Percocet] Allergy (Verified 01/03/20 17:11) Other HALUCINATE Penicillins Allergy (Verified 01/03/20 17:11) yeast infection propoxyphene HCl [From Darvon] Allergy (Verified 01/03/20 17:11) Vomiting levofloxacin [From Levaquin] Adverse Reaction (Verified 01/03/20 17:11) Diarrhea Primary Care Physician: Simone Isidro MD [Primary Care Provider] - Prior records reviewed: Yes Past Medical History: - - Problem list Surgical History: noncontributory Lives: With Family Smoking Status: Current every day smoker Alcohol: None Drugs: None - Family History Maternal Family History: Family History (Last Reviewed 05/30/19 @ 14:02 by Danielle Boyle) Other Alcoholism Alzheimer disease Anxiety Arthritis Asthma Breast cancer Cervical cancer Colon cancer Depression Heart disease High cholesterol Lung cancer Suicidal behavior Family History: Reports: No pertinent history Review of Systems General: Denies: Chills, Fever, Sweats Eyes: Denies: Visual changes - bilaterally, Diplopia ENT: Denies: Rhinorrhea, Sore throat Cardiovascular: Denies: Chest pain, Palpitations Respiratory: Reports: - - See HPI. Denies: Dyspnea, Cough, Dyspnea on exertion Gastrointestinal: Reports: Nausea. Denies: Abdominal pain, Vomiting, Diarrhea, Melena, Hematochezia Genitourinary: Denies: Dysuria, Hematuria, Frequency Musculoskeletal: Denies: Back pain, Extremity Pain Skin: Denies: Rash, Wounds Neurological: Denies: Headache, Weakness, Numbness Physical Exam Vital Signs/Narrative: Vital Signs Temp Pulse Resp BP Pulse Ox 01/05/20 22:13 97.3 F L 82 18 146/87 H 95 General: Well nourished, Well developed, No Acute Distress Head: Normocephalic, Atraumatic Eyes: Perrl, EOMI ENT: Moist mucous membranes, No rhinorrhea Neck: Supple, Nontender Cardiovascular: Regular rate, Regular rhythm, No murmurs Respiratory: No distress, CTA bilaterally, Chest nontender Abdomen: Soft, Nontender, Nondistended, Normal bowel sounds Back: Nontender, Normal Inspection Extremities: Nontender, No edema Skin: Normal color, No rash Neurological: Alert, Oriented x3, Cranial nerves II-XII grossly intact, Normal Strength, Normal Sensation Psychological: Normal affect, Normal Mood Diagnostic/Tx/Re-eval - Medical Decision Making Patient showed me a specimen. She had just mild very scant tinged mucus with blood streak. This is very mild in nature. Lab work obtained. Patient given Zofran for nausea. Chest x-ray obtained.. Lab work shows nothing acute. Coags negative. CBC shows mild leukocytosis which she has had prior as well. I do not feel she has a pneumonia. Hemoglobin stable. Chest x-ray normal. At this time patient's had no further bleeding. I suspect she just has irritation to her inner trachea from the endotracheal tube. We will follow-up as an outpatient. Given Zofran for nausea for home ED Disposition - Plan for ED Patient: Disposition: Home or Assisted Living Diagnosis: Coughing up blood Instructions: Blank Diagnosis Form Prescriptions: Ondansetron [Zofran Odt] 8 mg PO Q8H PRN PRN #20 tab PRN Reason: Nausea Transmission Status: Pending to [facility] #[facility] Referrals: Simone Isidro MD [Primary Care Provider] - Additional Instructions: I suspect to have tracheal irritation from the tube. Avoid blood thinners. We will follow-up as an outpatient return if you worsen
[2020-01-05] MEDS: Ondansetron 4 MG/2 ML Vial IV (22:56)
[2020-01-05 23:01] LABS: Absolute Lymphocyte Count 2.46 X10^3/uL (0.83-4.51); Absolute Neutrophil Count 10.7 X10^3/uL (2.0-7.7); Basophil# 0.06 X10^3/uL; Basophil% 0.4 % (0-1); Eosinophils% 0.7 % (0-5); Hemoglobin 13.8 g/dL (12.0-15.0); Lymphocyte # 2.46 X10^3/ul (4.0); Lymphocyte % 16.9 % (19-41); Mean Corp Hgb Conc 33.7 g/dL (32-36); Mean Corpuscular Hgb 30.9 pg (27.0-32.0); Mean Corpuscular Volume 91.7 fL (81-99); Mean Platelet Vol. 8.7 fl (6.2-12.0); Monocyte# 1.15 X10^3/uL; Monocyte% 7.9 % (0-10); NRBC Flagged by Analyzer 0 % (0-5); Neutrophil # 10.66 X10^3/uL (2.7-7.7); Neutrophil % 73.3 % (47-70); Platelet Count 296 K/mm3 (150-450); RBC Distribution Width CV 13.1 % (11.6-14.6); RBC Distribution Width SD 43.7 fl (35.1-43.9); Red Blood Count 4.47 M/mm3 (4.2-5.4); White Blood Count 14.6 K/mm3 (4.4-11.0)
[2020-01-05 23:13] LABS: Partial Thromboplast Time 30.3 Seconds (24.1-36.2); Prothrombin Time (Protime)PT. 12.2 SECONDS (11.7-14.9)
[2020-01-05 23:14] LABS: Anion Gap 6 (5-15); BUN 12 mg/dL (7-18); BUN/Creat Ratio 13.3 RATIO (10-20); Calcium,Total 8.7 mg/dL (8.5-10.1); Chloride 109 mmol/L (98-107); EST Glomerular Filtration Rate 68 mL/min (>60); Est Glom Filt Rate - Afr Amer 82 mL/min (>60); Estimated Creatinine Clearance 54.99 ml/min; Glucose 125 mg/dL (74-106); Potassium 3.5 mmol/L (3.5-5.1); Sodium Level 143 mmol/L (136-145)
[2020-01-06 00:24] VITALS: O2SAT 96
== END 2020-01-06 00:27 | disposition home or self-care (01) ==
PROVIDERS: Emergency Provider Emergency Medicine; PCP Family Medicine
DX: R04.2 Hemoptysis (principal); K21.9 Gastro-esophageal reflux disease without esophagitis; F17.200 Nicotine dependence, unspecified, uncomplicated
CPT/HCPCS: 71046; 80048; 85025; 85610; 85730; 96374; 99283; J2405

== ENCOUNTER 2020-01-14 16:12 | Emergency (ER) | payer MEDICAID, SELFPAY ==
[2020-01-07 15:14] VITALS: BMI 41.1
[2020-01-14] VITALS (9 sets, daily range): BP systolic 114–157; BP diastolic 67–89; PULSE 69–98; RESP 15–18; TEMP 36.6–36.8; O2SAT 94–99; BMI 41.0
--- NOTE | 2020-01-14 17:42 | CT_ITS ---
STUDY: CT ABDOMEN AND PELVIS WITH CONTRAST REASON FOR EXAM: Female, 59 years old. Postop, hernia repair. Pain and firmness in the area of concern. Warmth. RADIATION DOSAGE (If Supplied By Facility): CTDIvol = ( 15.27 ) mGy, DLP = ( 1083.44 ) mGycm TECHNIQUE: Transaxial images were obtained from the dome of the diaphragm to the symphysis pubis with oral contrast. Oral and amp; IV Gastrografin and amp; 100mL Isovue-300 was administered. Sagittal and coronal images were reconstructed. Individualized dose optimization techniques were used for this CT. COMPARISON: January 03, 2020. FINDINGS: The visualized lung bases are unremarkable. The visualized portions of the heart are within normal limits. Stable hepatic cysts. Normal gallbladder and extrahepatic biliary system. Normal spleen. Normal pancreas. Normal bilateral adrenal glands. Normal right kidney. Normal left kidney. Normal visualized stomach. Normal small intestine. Normal colon. There are surgical clips in the region of the appendix consistent with a prior appendectomy. There is diffuse atherosclerotic calcification of the abdominal aorta, without a demonstrated aneurysm. Normal inferior vena cava. Normal retroperitoneum. Normal urinary bladder. Normal vaginal cuff. There are phleboliths and pelvis without lymphadenopathy. There is a retained left ovary containing a 2.9 x 2.3 x 3.2 cm cyst. There is no free air or free fluid within the peritoneal cavity. There is a fluid collection in the supraumbilical subcutaneous fat measuring 6.6 x 6.6 x 6.7 cm. There is mild stranding along the underlying abdominal wall. Abdominal wall is otherwise unremarkable. There are no osseous changes. CT/Abdomen/Pelvis WITH Contrast IMPRESSION: 1. Fluid collection in the anterior abdominal wall at the level of the hernia repair. There is question separation of the underlying abdominal wall. 2. No other major interval change. Electronically Signed: Homer Ambrose DO at 20:14 EDT Tel [phone], Service support ,
--- NOTE | 2020-01-14 17:42 | EKG12_ITS ---
Test Reason : JA Blood Pressure : / mmHG Vent. Rate : 078 BPM Atrial Rate : 078 BPM P-R Int : 148 ms QRS Dur : 084 ms QT Int : 372 ms P-R-T Axes : 038 028 038 degrees QTc Int : 424 ms Normal sinus rhythm Normal ECG Confirmed by UMER REARDON ([id number]), subeditor JAMEL OMER ([id number]) on 01/17/2020 11:51:55 AM Referred By: YOEL Confirmed By:UMER REARDON
--- NOTE | 2020-01-14 17:45 | ED.DCSUM_ITS ---
History of Present Illness Chief Complaint: Abd Pain Informant: Patient Onset: Yesterday Current Severity: Mild Maximum Severity: Moderate Narrative: Patient presents with generalized illness. She had hernia repair 10 days ago. She states last evening she started to get chills and body aches. The surgical site is painful, hard, and hot to the touch. She is concerned she may have an infection. She also reports feeling lightheaded since her surgery. - Past Medical History (1) s/p incisional hernia repair Status: Chronic (2) GERD (gastroesophageal reflux disease) Status: Chronic Comment: Patient has a long history of esophageal reflux she takes Nexium and the prescription has gone through Past Medical History - Allergies and Home Meds Allergies/Adverse Reactions: Allergies aloe vera Allergy (Verified 01/14/20 16:15) Other ARANA SKIN doxycycline Allergy (Verified 01/14/20 16:15) Other SEVERE YEAST INFECTION hydrocodone bitartrate [From Vicodin] Allergy (Verified 01/14/20 16:15) Upset Stomach oxycodone HCl [From Percocet] Allergy (Verified 01/14/20 16:15) Other HALUCINATE Penicillins Allergy (Verified 01/14/20 16:15) yeast infection propoxyphene HCl [From Darvon] Allergy (Verified 01/14/20 16:15) Vomiting levofloxacin [From Levaquin] Adverse Reaction (Verified 01/14/20 16:15) Diarrhea Primary Care Physician: Simone Isidro MD [Primary Care Provider] - Doctors: Dr. Pugh Prior records reviewed: Yes Surgical History: noncontributory Lives: Spouse/ Significant Other Smoking Status: Current every day smoker - Family History Maternal Family History: Family History (Last Reviewed 01/07/20 @ 15:08 by Layla Martins) Other Alcoholism Alzheimer disease Anxiety Arthritis Asthma Breast cancer Cervical cancer Colon cancer Depression Heart disease High cholesterol Lung cancer Suicidal behavior Family History: Reports: No pertinent history Review of Systems General: Reports: Chills. Denies: Fever Eyes: Denies: Visual changes - bilaterally ENT: Denies: Bilateral ear pain Cardiovascular: Denies: Chest pain Respiratory: Denies: Dyspnea, Cough Gastrointestinal: Reports: Abdominal pain. Denies: Nausea, Vomiting, Diarrhea Genitourinary: Denies: Dysuria Musculoskeletal: Denies: Swelling, Extremity Pain Skin: Reports: Wounds. Denies: Rash Neurological: Reports: Weakness - Lightheadedness Psych: Denies: Depression Hematologic: Denies: Easy bruising, Easy bleeding Allergy: Denies: Uticaria Physical Exam Vital Signs/Narrative: Vital Signs Temp Pulse Resp BP Pulse Ox 01/14/20 16:15 98 F 98 18 157/77 H 94 01/14/20 16:13 98 F 98 18 157/77 H 94 Inital Vital Signs reviewed: Yes General: Well nourished, Well developed Head: Normocephalic ENT: Moist mucous membranes Neck: Supple Cardiovascular: Regular rate, Regular rhythm Respiratory: No distress, CTA bilaterally Abdomen: Soft, Tender, - - Healing supraumbilical incision site. Mild erythema. Area is tender to palpation. Extremities: Nontender Skin: Normal color Neurological: Alert, Oriented x3 Psychological: Normal affect Diagnostic/Tx/Re-eval Impressions Abdomen/Pelvis CT 01/14/20 17:42 IMPRESSION: 1. Fluid collection in the anterior abdominal wall at the level of the hernia repair. There is question separation of the underlying abdominal wall. 2. No other major interval change. Electronically Signed: Homer Ambrose DO at 20:14 EDT Tel [phone], Service support , 01/14/20 17:42 Abdomen/Pelvis WITH Contrast [CT] Stat Laboratory Results 01/14/20 01/14/20 01/14/20 16:59 16:59 17:55 WBC 12.3 H RBC 4.47 Hgb 13.9 Hct 42.3 MCV 94.6 MCH 31.1 MCHC 32.9 RDW Std Deviation 45.3 H RDW Coeff of Kayla 13.3 Plt Count 331 MPV 9.2 Sodium 139 Potassium 3.6 Chloride 107 Carbon Dioxide 28.0 Anion Gap 4 L BUN 7 Creatinine 0.68 Estim Creat Clear Calc 72.78 Est GFR (MDRD) Af Amer 113 Est GFR (MDRD) Non-Af 93 BUN/Creatinine Ratio 10.3 Glucose 110 H Calcium 8.6 Urine Color Yellow Urine Clarity Clear Urine pH 7.0 Ur Specific [place] 1.005 Urine Protein Negative Urine Glucose (UA) Normal Urine Ketones Negative Urine Occult Blood Negative Urine Nitrite Negative Urine Bilirubin Negative Urine Urobilinogen Normal Ur Leukocyte Esterase Negative Urine RBC 0 SEEN Urine WBC 0 SEEN Ur Squamous Epith Cells 0 SEEN Urine Bacteria RARE Urine Mucus 0 SEEN - EKG Initial EKG Interpretation: Sinus Rhythm - Sinus at 78 with no acute ischemia. - Medical Decision Making Patient was given morphine for pain. Test results and CT are discussed with Dr. Pugh. She reviewed the images. She would like the patient started on cefdinir 300 mg twice daily for the next 5 days. She would like to see the patient in follow-up in the office either tomorrow or Tuesday afternoon. This was relayed to the patient. ED Disposition - Plan for ED Patient: Disposition: Home or Assisted Living Diagnosis: Postoperative infection Instructions: ED Wound Infection after surgery Prescriptions: Cefdinir 300 mg PO BID #10 cap Transmission Status: Pending to [facility] #[facility] Fluconazole [Diflucan] 150 mg PO X1 #1 tab Transmission Status: Pending to [facility] #[id number] Referrals: Simone Isidro MD [Primary Care Provider] - Mirela Pugh MD [STAFF PHYSICIAN] - 1 Day
[2020-01-14] MEDS: Ondansetron 4 MG/2 ML Vial IV (17:52)
[2020-01-14] MEDS: Morphine 4 MG/ML Syringe IV ×2 (17:52→21:34)
[2020-01-14] MEDS: 0.9% Normal Saline 1,000 ML 150 ML IV (17:57)
[2020-01-14 18:10] LABS: Mucous, Urine 0 SEEN /hpf (<or=2+); Red Blood Cells-Urine 0 SEEN /hpf (0-5); White Blood Cells 0 SEEN /hpf (0-5)
[2020-01-14 18:19] LABS: Hematocrit 42.3 % (37-47); Hemoglobin 13.9 g/dL (12.0-15.0); Mean Corp Hgb Conc 32.9 g/dL (32-36); Mean Corpuscular Hgb 31.1 pg (27.0-32.0); Mean Corpuscular Volume 94.6 fL (81-99); Mean Platelet Vol. 9.2 fl (6.2-12.0); Platelet Count 331 K/mm3 (150-450); RBC Distribution Width CV 13.3 % (11.6-14.6); RBC Distribution Width SD 45.3 fl (35.1-43.9); Red Blood Count 4.47 M/mm3 (4.2-5.4); White Blood Count 12.3 K/mm3 (4.4-11.0)
[2020-01-14 18:19] LABS: Color, Urine Yellow (Yellow); Glucose, Dipstick Normal (Normal); Ketone-Dipstick Negative (Negative); Leukocyte Esterase-Dipstick Negative /ul (Negative); Nitrite-Dipstick Negative (Negative); Occult Blood-Urine Negative /ul (Negative); Protein-Dipstick Negative (Negative); Specific Gravity, Urine 1.005 (1.002-1.030); Urine Bilirubin Dipstick Negative (Negative); Urine Clarity Clear (Clear); Urine Urobilinogen Normal (Normal)
[2020-01-14 18:26] LABS: Bacteria RARE /hpf (None Seen); Squamous Epithelial Cells - UA 0 SEEN /hpf (5-10)
[2020-01-14 18:31] LABS: Anion Gap 4 (5-15); BUN 7 mg/dL (7-18); BUN/Creat Ratio 10.3 RATIO (10-20); Calcium,Total 8.6 mg/dL (8.5-10.1); Chloride 107 mmol/L (98-107); Creatinine, Serum 0.68 mg/dL (0.55-1.02); EST Glomerular Filtration Rate 93 mL/min (>60); Est Glom Filt Rate - Afr Amer 113 mL/min (>60); Estimated Creatinine Clearance 72.78 ml/min; Glucose 110 mg/dL (74-106); Potassium 3.6 mmol/L (3.5-5.1); Sodium Level 139 mmol/L (136-145)
[2020-01-14] MEDS: Cefdinir 300 MG Capsule PO (22:06)
== END 2020-01-14 22:07 | disposition home or self-care (01) ==
PROVIDERS: Emergency Provider Emergency Medicine; PCP Family Medicine
DX: T81.40XA Infection following a procedure, unspecified, initial encounter (principal); K21.9 Gastro-esophageal reflux disease without esophagitis; F17.200 Nicotine dependence, unspecified, uncomplicated
CPT/HCPCS: 74177; 80048; 81001; 85027; 93005; 96361; 96374; 96375; 96376; 99285; J7030; Q9967; A4216; J2405

== ENCOUNTER → 2020-02-14 | Outpatient (CLI) | payer MEDICAID, SELFPAY ==
[2020-02-07 12:53] VITALS: BMI 41.0
--- NOTE | 2020-02-14 14:52 | CT_ITS ---
STUDY: CT ABDOMEN WITH CONTRAST REASON FOR EXAM: Female, 59 years old. HERNIA REPAIR, ABD PAIN RADIATION DOSAGE (If Supplied By Facility): CTDIvol = ( 19.15 ) mGy, DLP = ( 998.00 ) mGycm TECHNIQUE: Transaxial images were obtained post I.V. administration of IV 100mL Isovue-300, and with oral contrast. Sagittal and coronal images were reconstructed. Individualized dose optimization techniques were used for this CT. COMPARISON: 01/14/2020 CT abdomen and pelvis FINDINGS: Fat-containing umbilical hernia. The visualized lung bases are unremarkable. The visualized portions of the heart are within normal limits. Normal liver. 15 mm cyst right lobe and 10 mm cyst left lobe of the liver. Normal gallbladder and extrahepatic biliary system. Normal spleen. Normal pancreas. Normal bilateral adrenal glands. Normal right kidney. Normal left kidney. Normal visualized stomach. Oral contrast noted in the small and large bowel. Otherwise normal. Appendix not identified. Normal abdominal aorta. Normal inferior vena cava. Normal retroperitoneum. Normal abdominal wall. Normal osseous structures. CT/Abdomen WITH IV Contrast IMPRESSION: No acute disease. No inguinal hernia. Electronically Signed: Luis F Juarez MD at 16:24 EDT , Service support ,
== END | disposition home or self-care (01) ==
LOC: CT 14:52
PROVIDERS: PCP Family Medicine; Referring Provider Surgery; Visit Provider Surgery
DX: R10.33 Periumbilical pain (principal)
CPT/HCPCS: 74160; Q9967

== ENCOUNTER 2020-02-29 16:05 | Emergency (ER) | payer MEDICAID, SELFPAY ==
[2020-02-27 14:08] VITALS: BMI 41.0
[2020-02-29 16:05] VITALS: BP 150/86; PULSE 87; RESP 17; TEMP 36.3; O2SAT 97; BMI 41.5
--- NOTE | 2020-02-29 16:30 | CT_ITS ---
STUDY: CT ABDOMEN AND PELVIS WITH CONTRAST REASON FOR EXAM: Female, 59 years old. ABDOMINAL PAIN STARTED THIS AM. RADIATION DOSAGE (If Supplied By Facility): CTDIvol = ( 20.10 ) mGy, DLP = ( 1021.86 ) mGycm TECHNIQUE: Transaxial images were obtained from the dome of the diaphragm to the symphysis pubis without oral contrast. IV 100mL Isovue-300 was administered. Sagittal and coronal images were reconstructed. Individualized dose optimization techniques were used for this CT. COMPARISON: Prior abdomen CT exam of 02/14/2020 and abdomen and pelvic CT exam of 01/14/2020 FINDINGS: The visualized lung bases are unremarkable. The visualized portions of the heart are within normal limits. Stable hepatic cysts. Otherwise normal liver. Normal gallbladder and extrahepatic biliary system. Normal spleen. Normal pancreas. Normal bilateral adrenal glands. Normal right kidney. Normal left kidney. Normal visualized stomach. Normal small intestine. Normal colon. There are surgical clips in the region of the appendix consistent with a prior appendectomy. There is diffuse atherosclerotic calcification of the abdominal aorta, without a demonstrated aneurysm. Normal inferior vena cava. Normal retroperitoneum. Normal urinary bladder. Status post hysterectomy. Stable 3 x 2 cyst of the left ovary. The anterior hernia repair has healed with resolution of the former fluid collection. No recurrent herniation. Normal osseous structures. CT/Abdomen/Pelvis W IV Cont ONLY IMPRESSION: No acute bowel related findings. Negative for evidence of obstruction, perforation or inflammatory changes. The appendix has been removed. Stable simple cysts of the liver. No additional imaging recommendations. Otherwise normal liver, spleen and pancreas with a nondistended gallbladder. Normal kidneys bilaterally and a normal nondistended urinary bladder. Status post hysterectomy. Stable 3 x 2 cm cyst of the left ovary. Healed abdominal wall hernia repair with no residual fluid collection or recurrent hernia. Electronically Signed: Skashi Baltazar MD at 17:47 EDT , Service support ,
--- NOTE | 2020-02-29 16:30 | ED.VIS.GI ---
History of Present Illness Informant: Patient, Significant Other - Abdominal Pain/Flank Pain Onset: Today Context: Sudden Onset Timing: Continuous Quality: Sharp, Stabbing Location: Epigastric Current Severity: Severe Maximum Severity: Severe Worsened by: Movement Relieved by: Remaining Still - Nausea/Vomiting/Emesis GI Symptom: Negative for: Nausea, Vomiting - Diarrhea/Melena/Hematochezia GI Symptom: Negative for: Diarrhea, Melena, Hematochezia Associated Symptoms: Negative for: Dysuria, Frequency, Hematuria, Urgency Narrative: 59-year-old female presents to the emergency department abdominal pain. Patient had hernia surgery 2 months ago several weeks after that developed a postoperative fluid collection that had to be drained. She states that she had a repeat CT done a little over 2 weeks ago that showed resolution and no further fluid collection. This morning she sat up in bed and had a sharp tearing pain in her abdomen around her umbilicus. Is been constant. She states it is actually worsened throughout the last several hours which prompted her visit to the emergency department. No nausea or vomiting. No diarrhea. She has not been constipated. She is not had a fever. No back pain. She is not lightheaded or dizzy. No chest pain or shortness of breath. No diaphoresis. No weakness or paresthesias of the upper or lower extremities. Prior similar symptoms: Yes Recent Illness/Hospitalization: Yes <Josafat Schmid - Last Filed: 02/29/20 17:54> <Mario Alberto Lane - Last Filed: 02/29/20 18:00> Chief Complaint: Abd Pain Past Medical History Surgical History: noncontributory Smoking Status: Current every day smoker - Family History Maternal Family History: Family History (Last Reviewed 02/07/20 @ 12:[address] Jaun Spicer MD) Other Alcoholism Alzheimer disease Anxiety Arthritis Asthma Breast cancer Cervical cancer Colon cancer Depression Heart disease High cholesterol Lung cancer Suicidal behavior Family History: Reports: No pertinent history <Josafat Schmid - Last Filed: 02/29/20 17:54> - Family History Maternal Family History: Family History (Last Reviewed 02/07/20 @ 12:[address] Jaun Spicer MD) Other Alcoholism Alzheimer disease Anxiety Arthritis Asthma Breast cancer Cervical cancer Colon cancer Depression Heart disease High cholesterol Lung cancer Suicidal behavior <Mario Alberto Lane - Last Filed: 02/29/20 18:00> - Allergies and Home Meds Allergies/Adverse Reactions: Allergies aloe vera Allergy (Verified 02/29/20 16:05) Other ARANA SKIN doxycycline Allergy (Verified 02/29/20 16:05) Other SEVERE YEAST INFECTION hydrocodone bitartrate [From Vicodin] Allergy (Verified 02/29/20 16:05) Upset Stomach oxycodone HCl [From Percocet] Allergy (Verified 02/29/20 16:05) Other HALUCINATE Penicillins Allergy (Verified 02/29/20 16:05) yeast infection propoxyphene HCl [From Darvon] Allergy (Verified 02/29/20 16:05) Vomiting levofloxacin [From Levaquin] Adverse Reaction (Verified 02/29/20 16:05) Diarrhea Primary Care Physician: Simone Isidro MD [Primary Care Provider] - Review of Systems All systems negative except as indicated General: Denies: Chills, Fever, Sweats Eyes: Denies: Visual changes - bilaterally, Diplopia ENT: Denies: Rhinorrhea, Sore throat Cardiovascular: Denies: Chest pain, Palpitations Respiratory: Denies: Dyspnea, Cough, Dyspnea on exertion Gastrointestinal: Reports: Abdominal pain. Denies: Nausea, Vomiting, Diarrhea, Constipation, Melena, Hematochezia Genitourinary: Denies: Dysuria, Hematuria, Frequency Musculoskeletal: Denies: Back pain, Extremity Pain Skin: Denies: Rash, Wounds Neurological: Denies: Headache, Weakness, Numbness <Josafat Schmid - Last Filed: 02/29/20 17:54> Physical Exam Vital Signs/Narrative: Vital Signs Temp Pulse Resp BP Pulse Ox 02/29/20 16:05 97.3 F L 87 17 150/86 H 97 Inital Vital Signs reviewed: Yes General: Well nourished, Well developed, No Acute Distress Head: Normocephalic, Atraumatic Eyes: Perrl, EOMI ENT: Moist mucous membranes, No rhinorrhea Neck: Supple, Nontender Cardiovascular: Regular rate, Regular rhythm, No murmurs Respiratory: No distress, CTA bilaterally, Chest nontender Abdomen: Soft, Nondistended, Normal bowel sounds, Tender Back: Nontender, Normal Inspection Extremities: Nontender, No edema Skin: Normal color, No rash Neurological: Alert, Oriented x3, Cranial nerves II-XII grossly intact, Normal Strength, Normal Sensation Psychological: Normal affect, Normal Mood <Josafat Schmid - Last Filed: 02/29/20 17:54> Vital Signs/Narrative: Vital Signs Temp Pulse Resp BP Pulse Ox 02/29/20 16:05 97.3 F L 87 17 150/86 H 97 <[address] - Last Filed: 02/29/20 18:00> Diagnostic/Tx/Re-eval CT: Abdomen and Pelvis Impressions Abdomen/Pelvis CT 02/29/20 16:30 IMPRESSION: No acute bowel related findings. Negative for evidence of obstruction, perforation or inflammatory changes. The appendix has been removed. Stable simple cysts of the liver. No additional imaging recommendations. Otherwise normal liver, spleen and pancreas with a nondistended gallbladder. Normal kidneys bilaterally and a normal nondistended urinary bladder. Status post hysterectomy. Stable 3 x 2 cm cyst of the left ovary. Healed abdominal wall hernia repair with no residual fluid collection or recurrent hernia. Electronically Signed: Sakshi Baltazar MD at 17:47 EDT , Service support , 02/29/20 16:30 CT Abd [Abdomen/Pelvis W IV Cont ONLY] [CT] Stat Laboratory Results 02/29/20 02/29/20 16:30 16:30 WBC 10.0 RBC 4.59 Hgb 14.3 Hct 42.4 MCV 92.4 MCH 31.2 MCHC 33.7 RDW Std Deviation 45.2 H RDW Coeff of Kayla 13.3 Plt Count 330 MPV 9.0 Immature Gran % (Auto) 0.900 Neut % (Auto) 69.1 Lymph % (Auto) 21.1 [place] % (Auto) 6.2 Eos % (Auto) 2.2 Baso % (Auto) 0.5 Absolute Neuts (auto) 6.9 Absolute Lymphs (auto) 2.12 Nucleated RBC % 0 Sodium 141 Potassium 3.5 Chloride 108 H Carbon Dioxide 26.0 Anion Gap 7 BUN 7 Creatinine 0.76 Estim Creat Clear Calc 65.12 Est GFR (MDRD) Af Amer 100 Est GFR (MDRD) Non-Af 83 BUN/Creatinine Ratio 9.2 L Glucose 132 H Calcium 9.0 Total Bilirubin 0.60 AST 16 ALT 27 Alkaline Phosphatase 157 H Total Protein 7.6 Albumin 3.8 Globulin 3.8 Albumin/Globulin Ratio 1.0 Lipase 45 L - Medical Decision Making Patient was treated with fluids, Zofran and morphine. CBC CMP and lipase all were unremarkable. CT abdomen and pelvis shows no acute findings. Repeat exam patient was having some mild further pain and was given another dose of morphine. Repeat exam patient feeling improved. Abdomen is soft and nontender and she is able to tolerate by mouth. She was reassured. At this time we do not feel she needs further work-up or admission. She has tramadol to take at home for pain and will follow-up with her general surgeon. Return precautions given. All questions answered. Discharged home. <Josafat Schmid - Last Filed: 02/29/20 17:54> - Medical Decision Making Seen and evaluated independently and in conjunction with physician executive assistant to general counsel. Agree with notes above unless documented otherwise. Patient with sudden onset of pain as she sat up. Her abdomen is tender throughout the periumbilical area with no palpable hernia, no erythema, and no palpable swollen areas although this is certainly limited by her obesity. Agree with obtaining CT scan to rule out fluid collection, which is not present currently. My suspicion is that she had a minor tear of an internal suture. Patient was wondering if the meshes slipped out of place and I reassured her that that is not likely to be possible, she was offered more analgesics that she declined, and she agrees with following up with her surgeon as an outpatient. Supportive care advised for now and we discussed reasons to return. <Mario Alberto Lane - Last Filed: 02/29/20 18:00> ED Disposition <Josafat Schmid - Last Filed: 02/29/20 17:54> <Mario Alberto Lane - Last Filed: 02/29/20 18:00> - Plan for ED Patient: Disposition: Home or Assisted Living Diagnosis: Abdominal pain, s/p incisional hernia repair Instructions: ED Abdominal Pain Unkn Cause Fem Prescriptions: Ondansetron [Zofran Odt] 4 mg PO Q8H PRN PRN #10 tab PRN Reason: Nausea Prescription Printed Referrals: Simone Isidro MD [Primary Care Provider] -
[2020-02-29] MEDS: 0.9% Normal Saline 1,000 ML 125 ML IV (16:41)
[2020-02-29] MEDS: Morphine 4 MG/ML Syringe IV ×2 (16:42→18:24)
[2020-02-29] MEDS: Ondansetron 4 MG/2 ML Vial IV ×2 (16:43→18:24)
[2020-02-29 16:47] LABS: Absolute Lymphocyte Count 2.12 X10^3/uL (0.83-4.51); Absolute Neutrophil Count 6.9 X10^3/uL (2.0-7.7); Basophil# 0.05 X10^3/uL; Basophil% 0.5 % (0-1); Eosinophil# 0.22 X10^3/uL; Eosinophils% 2.2 % (0-5); Hematocrit 42.4 % (37-47); Hemoglobin 14.3 g/dL (12.0-15.0); Lymphocyte # 2.12 X10^3/ul (4.0); Lymphocyte % 21.1 % (19-41); Mean Corp Hgb Conc 33.7 g/dL (32-36); Mean Corpuscular Hgb 31.2 pg (27.0-32.0); Mean Corpuscular Volume 92.4 fL (81-99); Monocyte# 0.62 X10^3/uL; Monocyte% 6.2 % (0-10); NRBC Flagged by Analyzer 0 % (0-5); Neutrophil # 6.94 X10^3/uL (2.7-7.7); Neutrophil % 69.1 % (47-70); Platelet Count 330 K/mm3 (150-450); RBC Distribution Width CV 13.3 % (11.6-14.6); RBC Distribution Width SD 45.2 fl (35.1-43.9); Red Blood Count 4.59 M/mm3 (4.2-5.4)
[2020-02-29 17:05] LABS: AST(SGOT) 16 U/L (15-37); Alanine Aminotransfer ALT/SGPT 27 U/L (13-56); Albumin, Serum 3.8 g/dL (3.2-5.0); Alkaline Phosphatase 157 U/L (45-117); Anion Gap 7 (5-15); BUN 7 mg/dL (7-18); BUN/Creat Ratio 9.2 RATIO (10-20); Chloride 108 mmol/L (98-107); Creatinine, Serum 0.76 mg/dL (0.55-1.02); EST Glomerular Filtration Rate 83 mL/min (>60); Est Glom Filt Rate - Afr Amer 100 mL/min (>60); Estimated Creatinine Clearance 65.12 ml/min; Globulin 3.8 g/dL (2.2-4.2); Glucose 132 mg/dL (74-106); Lipase 45 U/L (73-393); Potassium 3.5 mmol/L (3.5-5.1); Protein, Total 7.6 g/dL (6.4-8.2); Sodium Level 141 mmol/L (136-145)
[2020-02-29 18:36] VITALS: BP 122/57; PULSE 72; RESP 20; O2SAT 98
== END 2020-02-29 18:36 | disposition home or self-care (01) ==
PROVIDERS: Emergency Provider Physician Assistant Medical; PCP Family Medicine
DX: R10.33 Periumbilical pain (principal); Z98.890 Other specified postprocedural states; F17.200 Nicotine dependence, unspecified, uncomplicated
CPT/HCPCS: 74177; 80053; 83690; 85025; 96361; 96374; 96375; 96376; 99283; J7030; Q9967; A4216; J2405

== ENCOUNTER → 2020-03-07 | Outpatient (CLI) | payer MEDICAID, SELFPAY ==
[2020-02-29 16:05] VITALS: BMI 41.5
[2020-03-07 17:29] LABS: Absolute Lymphocyte Count 1.92 X10^3/uL (0.83-4.51); Absolute Neutrophil Count 5.9 X10^3/uL (2.0-7.7); Basophil# 0.04 X10^3/uL; Basophil% 0.5 % (0-1); Eosinophils% 2.3 % (0-5); Hematocrit 41.9 % (37-47); Hemoglobin 13.9 g/dL (12.0-15.0); Lymphocyte # 1.92 X10^3/ul (4.0); Lymphocyte % 21.7 % (19-41); Mean Corp Hgb Conc 33.2 g/dL (32-36); Mean Corpuscular Volume 93.5 fL (81-99); Mean Platelet Vol. 9.4 fl (6.2-12.0); Monocyte# 0.66 X10^3/uL; Monocyte% 7.5 % (0-10); NRBC Flagged by Analyzer 0 % (0-5); Neutrophil # 5.93 X10^3/uL (2.7-7.7); Neutrophil % 67.1 % (47-70); Platelet Count 346 K/mm3 (150-450); RBC Distribution Width CV 13.5 % (11.6-14.6); Red Blood Count 4.48 M/mm3 (4.2-5.4); White Blood Count 8.8 K/mm3 (4.4-11.0)
[2020-03-07 17:59] LABS: ALB/GLOB Ratio 0.9 RATIO (0.9-2.4); AST(SGOT) 12 U/L (15-37); Alanine Aminotransfer ALT/SGPT 26 U/L (13-56); Albumin, Serum 3.6 g/dL (3.2-5.0); Alkaline Phosphatase 162 U/L (45-117); Anion Gap 6 (5-15); BUN 9 mg/dL (7-18); BUN/Creat Ratio 14.2 RATIO (10-20); Calcium,Total 8.9 mg/dL (8.5-10.1); Chloride 107 mmol/L (98-107); Cholesterol 220 mg/dL (200); Creatinine, Serum 0.64 mg/dL (0.55-1.02); EST Glomerular Filtration Rate 101 mL/min (>60); Est Glom Filt Rate - Afr Amer 122 mL/min (>60); Glucose 96 mg/dL (74-106); High Density Lipoprotein 51 mg/dL; Potassium 3.8 mmol/L (3.5-5.1); Protein, Total 7.6 g/dL (6.4-8.2); Sodium Level 138 mmol/L (136-145); Triglycerides 133 mg/dL; Very Low Density Lipoprotein 27 mg/dL (5-40)
== END | disposition home or self-care (01) ==
LOC: MTLAB 14:46
PROVIDERS: PCP Family Medicine; Referring Provider Family Medicine; Visit Provider Family Medicine
DX: E78.5 Hyperlipidemia, unspecified (principal); Z72.0 Tobacco use
CPT/HCPCS: 36415; 80053; 80061; 85025

== ENCOUNTER → 2020-03-19 14:49 | Outpatient (CLI) | payer MEDICAID, SELFPAY ==
[2020-03-19 14:27] VITALS: BMI 41.5
[2020-03-19 14:54] LABS: Bacteria 0 SEEN /hpf (None Seen); Mucous, Urine 0 SEEN /hpf (<or=2+); Red Blood Cells-Urine 0 SEEN /hpf (0-5); Squamous Epithelial Cells - UA 0 SEEN /hpf (5-10); White Blood Cells 0 SEEN /hpf (0-5)
[2020-03-19 17:44] LABS: Color, Urine Yellow (Yellow); Glucose, Dipstick Normal (Normal); Ketone-Dipstick Negative (Negative); Leukocyte Esterase-Dipstick Negative /ul (Negative); Nitrite-Dipstick Negative (Negative); Occult Blood-Urine Negative /ul (Negative); Protein-Dipstick Negative (Negative); Specific Gravity, Urine 1.005 (1.002-1.030); Urine Bilirubin Dipstick Negative (Negative); Urine Clarity Clear (Clear); Urine Urobilinogen Normal (Normal)
[2020-03-19 18:14] LABS: AST(SGOT) 14 U/L (15-37); Alanine Aminotransfer ALT/SGPT 22 U/L (13-56); Alkaline Phosphatase 177 U/L (45-117); Bilirubin, Direct 0.22 mg/dL (0.00-0.30); GGTP 27 U/L (5-55)
== END ==
PROVIDERS: PCP Family Medicine; Referring Provider Family Medicine; Visit Provider Family Medicine
DX: R74.8 Abnormal levels of other serum enzymes (principal); Z72.0 Tobacco use
CPT/HCPCS: 36415; 80076; 81001; 82977

== ENCOUNTER → 2020-04-10 | Outpatient (CLI) | payer MEDICAID, SELFPAY ==
[2020-03-19 14:27] VITALS: BMI 41.5
--- NOTE | 2020-04-10 16:19 | RAD_ITS ---
STUDY: X-RAY - PELVIS AND LEFT HIP REASON FOR EXAM: Female, 59 years old. Intermittent hip pain for 11 years. TECHNIQUE: 3 views of the pelvis and hip. COMPARISON: None. FINDINGS: There is a non-specific bowel gas pattern. Normal visualized soft tissue structures. There are multiple calcified phleboliths. Normal bilateral iliac wings, sacroiliac joints and visualized sacrum. Normal bilateral superior and inferior pubic rami. Normal pubic symphysis. Normal bilateral ischial tuberosities. Normal visualized left femoral head. Normal left acetabulum. Normal left hip joint. RAD/HIP, UNI W/ Pelvis 2-3 Views IMPRESSION: Normal x-ray examination of the pelvis and left hip. Electronically Signed: Homer Ambrose DO at 22:32 EDT Tel [phone], Service support ,
[2020-04-10 18:14] LABS: AST(SGOT) 18 U/L (15-37); Alanine Aminotransfer ALT/SGPT 29 U/L (13-56); Albumin, Serum 3.7 g/dL (3.2-5.0); Alkaline Phosphatase 160 U/L (45-117); Bilirubin, Direct 0.16 mg/dL (0.00-0.30); GGTP 26 U/L (5-55); Globulin 3.7 g/dL (2.2-4.2); Protein, Total 7.4 g/dL (6.4-8.2)
== END | disposition home or self-care (01) ==
LOC: MTLAB 16:17
PROVIDERS: PCP Family Medicine; Referring Provider Family Medicine; Visit Provider Family Medicine
DX: M25.552 Pain in left hip (principal); R74.8 Abnormal levels of other serum enzymes
CPT/HCPCS: 36415; 73502; 80076; 82977

== ENCOUNTER → 2020-05-27 07:12 | Outpatient (CLI) | payer MEDICAID, SELFPAY ==
[2020-03-19 14:27] VITALS: BMI 41.5
--- NOTE | 2020-05-27 08:47 | STRESSREP ---
Stress Test Report Date: 05-27-2020 Procedure: Pharmacologic stress nuclear imaging study Indications: Abnormal ECG; chest pain Consent: Per the patient Procedure: The patient underwent pharmacologic (Regadenoson) evaluation with a peak heart rate of 109 beats per minute (68%predicted maximal heart rate) and a peak blood pressure of 132/82 mmHg. The baseline ECG demonstrated normal sinus rhythm. The peak pharmacologic ECG demonstrated no obvious ECG changes. There were no cardiac dysrhythmias pretest, during pharmacologic infusion, or recovery. There was no complaint of chest discomfort during pharmacologic infusion or recovery. The examination was discontinued secondary to completion of protocol. Impression: 1. Pharmacologic (Regadenoson) evaluation 2. Peak pharmacologic ECG with no obvious ECG changes. 3. There were no cardiac dysrhythmias pretest, during pharmacologic infusion, or recovery. 4. Nuclear images pending Myocardial perfusion imaging study: Technique: The patient was injected with 14.6 millicuries of technetium 99m Cardiolite and subsequently rest SPECT Cardiolite nuclear imaging was obtained in the horizontal long, vertical long, and short axis views. The patient underwent pharmacologic (Regadenoson) evaluation with a peak heart rate of 109 beats per minute (68% percent predicted maximal heart rate) and a peak blood pressure of 132/82 mmHg. The patient was injected with 44.5 millicuries of technetium 99m Cardiolite and subsequently stress SPECT Cardiolite nuclear imaging was obtained in the horizontal long, vertical long, and short axis views. A gated Cardiolite study at peak stress was obtained. Interpretation: Rest and stress SPECT Cardiolite nuclear imaging status post realignment, normalization, and attenuation correction demonstrate normal perfusion. There is end systolic thickening and brightening. The gated Cardiolite study demonstrates myocardial thickening and inward wall motion. The reported LVEF is 81%. Impression: 1. Rest and stress SPECT Cardiolite nuclear imaging demonstrate relative uniform tracer uptake and myocardial perfusion appearing within normal limits. 2. The gated Cardiolite study reports an LVEF of 81%. This note was generated with [employer] technologyation software. It may contain incorrect words, spelling, and punctuation that were not noted in checking the note before signing.
== END ==
PROVIDERS: PCP Family Medicine; Referring Provider Family Medicine; Visit Provider Family Medicine
DX: R94.31 Abnormal electrocardiogram [ECG] [EKG] (principal)
CPT/HCPCS: 78452; 93017; A9500; A4216; J2785

== ENCOUNTER → 2020-06-04 16:13 | Outpatient (CLI) | payer MEDICAID, SELFPAY ==
[2020-06-04 15:30] VITALS: BMI 42.3
[2020-06-04 18:08] LABS: Anion Gap 4 (5-15); BUN 9 mg/dL (7-18); BUN/Creat Ratio 12.3 RATIO (10-20); Calcium,Total 8.9 mg/dL (8.5-10.1); Chloride 107 mmol/L (98-107); Creatinine, Serum 0.73 mg/dL (0.55-1.02); EST Glomerular Filtration Rate 86 mL/min (>60); Est Glom Filt Rate - Afr Amer 104 mL/min (>60); Glucose 91 mg/dL (74-106); Potassium 3.9 mmol/L (3.5-5.1); Sodium Level 138 mmol/L (136-145); Thyroid Stim Hormone (TSH) 0.76 uIU/mL (0.358-3.74)
== END ==
PROVIDERS: PCP Family Medicine; Visit Provider Internal Medicine Cardiovascular Disease
DX: R60.0 Localized edema (principal)
CPT/HCPCS: 36415; 80048; 83880; 84443

== ENCOUNTER → 2020-06-27 11:07 | Outpatient (CLI) | payer MEDICAID, SELFPAY ==
[2020-06-04 15:30] VITALS: BMI 42.3
--- NOTE | 2020-06-27 11:09 | US_ITS ---
STUDY: THYROID ULTRASOUND REASON FOR EXAM: Female, 59 years old. NODULES TECHNIQUE: Ultrasound evaluation of the thyroid was performed with real-time and static holloway-scale imaging. COMPARISON: 11/27/2018 FINDINGS: RIGHT LOBE: The right lobe of the thyroid gland measures 5.2 x 1.9 x 2.2 cm. There is a homogeneous echotexture. There are 2 anechoic cysts of the right thyroid lobe measuring up to 1.5 cm. Hypoechoic oval-shaped nodule of the anterior right mid thyroid measures 6 mm without microcalcifications. The margins are smooth. LEFT LOBE: The left lobe of the thyroid gland measures 5.4 x 1.5 x 1.9 cm. There is a homogeneous echotexture. Nearly anechoic nodule of the inferior left thyroid lobe measures 5 mm. ISTHMUS: The isthmus measures 2.4 . The regional lymph nodes are normal. US/Thyroid IMPRESSION: No new or enlarging thyroid nodules. Multiple thyroid nodules/cysts, as above. Electronically Signed: Beau Suresh MD ([place]) at 15:19 EST , Service support ,
== END ==
PROVIDERS: PCP Family Medicine; Referring Provider Family Medicine; Visit Provider Family Medicine
DX: E04.2 Nontoxic multinodular goiter (principal)
CPT/HCPCS: 76536

== ENCOUNTER → 2020-07-02 13:48 | Outpatient (CLI) | payer MEDICAID, SELFPAY ==
[2020-06-30 14:20] VITALS: BMI 42.5
--- NOTE | 2020-07-02 13:51 | RAD_ITS ---
STUDY: X-RAY - UNILATERAL RIBS ( LEFT ) WITH CHEST REASON FOR EXAM: Female, 59 years old. Left anterior rib pain, under left breast -- no injury TECHNIQUE - RIBS: 4 view(s) of the ribs. TECHNIQUE - CHEST: Single PA view of the chest. COMPARISON: Comparison is made with prior chest radiograph dated 01/05/2020. FINDINGS - RIBS: Nondisplaced fracture of the anterior aspect of the left eighth and ninth ribs. FINDINGS - CHEST: Stable increased interstitial markings suggestive of scarring. There is no demonstrated pleural abnormality. Normal size heart. Normal mediastinum and sera. Normal visualized pulmonary arteries. There is atherosclerotic calcification of the aortic arch with tortuosity. Normal visualized thoracic spine. Normal visualized ribs, clavicles, and shoulders. There is no demonstrated abnormality of the visualized soft tissue structures of the upper abdomen. RAD/Ribs Uni Min 3V w/PA Chest IMPRESSION: RIBS: Nondisplaced fracture along the anterior aspect of the left eighth and ninth ribs. CHEST: Hyperinflation. Stable increased linear markings suggestive of scarring. Electronically Signed: Klaus Bergman, at 14:29 EST , Service support ,
== END ==
PROVIDERS: PCP Family Medicine; Referring Provider Family Medicine; Visit Provider Family Medicine
DX: R07.81 Pleurodynia (principal)
CPT/HCPCS: 71101

== ENCOUNTER → 2020-07-22 | Outpatient (CLI) | payer MEDICAID, SELFPAY ==
[2020-07-22 11:15] VITALS: BMI 42.9
--- NOTE | 2020-07-22 11:30 | VUL_PTH ---
PATIENT: DEVON BARAHONA LOC: [facility] U#:[id number] AGE/SX: 59/F ROOM: RE07/22/[address]: Dr. Sujata Briscoe MD : 1960 BED: DIS: 07/22/2020 SPEC #: [id number] RECD: 07/22/20 15:26 STATUS: MARCIA RERalph #: [id number] ANGELINA: 07/22/20 11:[address]: Sujata Briscoe DEPT: SURGICAL PATHOLOGY RECD BY: Alessandra Sanz ENTERED: 07/23/20 06:57 SP TYPE: VULVA BX OTHR DR: Dr. Simone Isidro MD Tissues: Vulva, NOS Procedures: Special Stain Group I Surgery Specimen Level IV GMS Stain (control) HEADER OPERATION: Colposcopy/vulvar biopsy PRE-OP DIAGNOSIS: Vulva itching TISSUE SUBMITTED: Vulva MICROSCOPIC DIAGNOSIS Vulva, punch biopsy: Mild chronic inflammation and mild hyperkeratosis. Negative for fungal organisms. See comment. AM:juju 07/24/2020 COMMENT GMS stain with matched control was used in the evaluation of this case. MICROSCOPIC DESCRIPTION Slides are reviewed. GROSS DESCRIPTION Received is one container labeled with the patient's name and not further designated. The specimen consists of a piece of wagner-white skin measuring 0.5 x 0.2 x 0.1 cm. The specimen is totally submitted in one cassette. / SJ:juju 07/23/2020 TC:3 CPT: 81834, 41502
== END | disposition home or self-care (01) ==
LOC: LABSPEC 15:33
PROVIDERS: PCP Family Medicine; Referring Provider Obstetrics & Gynecology; Visit Provider Obstetrics & Gynecology
DX: L29.2 Pruritus vulvae (principal)
CPT/HCPCS: 88305; 88312

== ENCOUNTER → 2020-07-31 10:55 | Outpatient (CLI) | payer MEDICAID, SELFPAY ==
[2020-07-29 15:06] VITALS: BMI 42.1
[2020-07-31 11:15] VITALS: PULSE 103; PULSE 105; PULSE 106; PULSE 115; PULSE 120; PULSE 83; PULSE 90; O2SAT 86; O2SAT 88; O2SAT 89; O2SAT 91; O2SAT 92; O2SAT 96; O2SAT 99
--- NOTE | 2020-07-31 11:21 | CPS ---
Patient currently wears 2L of O2 at home. On RA patients sat's were 96%, therefore test was initiated on RA. At the 1 minute tom patient's sat's dropped to 86%, therefore O2 was started at 2L. Time was given for patient to recover and sat's increased to 94%. At the 3 minute tom, patient's sat's dropped to 88%, O2 was then increased to 3L. After recovery time patients sat's improved to 91%. The remainder of the test was then completed at 3L and patients sat's were maintained 90% and greater.
--- NOTE | 2020-07-31 13:58 | BD_ITS ---
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 COMPARISON: None. FINDINGS: Lumbar Spine (L1-L4): g/cm2 (0.776) / T-score (-3.4) / Z-score (-2.1) Findings are suggestive of osteoporosis with a high fracture risk. Left Femur Total: g/cm2 (0.779) / T-score (-1.8) / Z-score (-0.9) Left Femoral Neck: g/cm2 (0.711) / T-score (-2.4) / Z-score (-1.1) Right Femur Total: g/cm2 (0.842) / T-score (-1.3) / Z-score (-0.3) Right Femoral Neck: g/cm2 (0.737) / T-score (-2.2) / Z-score (-0.9) BD/Dexa Bone Density Study IMPRESSION: The patient is considered osteoporotic as outlined below according to World Patrick Organization (WHO) criteria with a high fracture risk. Reference Information: The T-score is the number of standard deviations above or below the standard which is normal for young adults at their peak bone mineral density. The World Health Organization (WHO) interprets the T-scores as follows: Above -1 Normal bone density Between -1 and -2.5 Osteopenia Equal to / or below -2.5 Osteoporosis As a practical clinical guideline, osteopenia may be graded as follows: Mild -1 through -1.5 Moderate -1.6 through -2.0 Severe -2.1 through -2.4 The Z-score is the number of standard deviations above or below age-matched controls. A Z-score of less than -1.5 would be considered abnormal. References: 1. NIH Osteoporosis and Related Bone Diseases www osteo.org 2. International Society for Clinical Densitometry www iscd.org 3. National Osteoporosis Foundation www nof.org Electronically Signed: Klaus Bergman, at 15:26 EST , Service support ,
--- NOTE | 2020-08-01 08:18 | PCM.PSN.6M ---
PSN 6 Minute Walk Test - 6 Minute Walk Test 6 Minute Walk Test: 6 Minute Walk Test PSN:6-Minute Walk Test Start: 07/31/20 11:17 Freq: Status: Active Protocol: [id number] Document 07/31/20 11:15 (Rec: 07/31/20 11:28 [id number]) 6 Minute Walk Test Date Performed 07/31/20 Time Performed 11:15 Height 5 ft 3 in Weight: 238 lb Weight in Pounds 238.[address]: Perfecto Krause FIO2 (% Oxygen) 32 Assistive device used: Walker Pre-test Oxygen Delivery Method Room Air Pulse Ox (%) 96 Pulse Rate (60-100 beats/min) 83 Dyspnea Rufus Scale (0-10) 0 Exertion Rufus Scale (6-20) 6 1st minute Oxygen Flow Rate (L/min) (L/min) 2 Oxygen Delivery Method Nasal Cannula Pulse Ox (%) 86 Pulse Rate (60-100 beats/min) 103 H 2nd minute Oxygen Flow Rate (L/min) (L/min) 2 Oxygen Delivery Method Nasal Cannula Pulse Ox (%) 92 Pulse Rate (60-100 beats/min) 105 H 3rd minute Oxygen Flow Rate (L/min) (L/min) 3 Oxygen Delivery Method Nasal Cannula Pulse Ox (%) 88 Pulse Rate (60-100 beats/min) 106 H 4th minute Oxygen Flow Rate (L/min) (L/min) 3 Oxygen Delivery Method Nasal Cannula Pulse Ox (%) 91 Pulse Rate (60-100 beats/min) 115 H 5th minute Oxygen Flow Rate (L/min) (L/min) 3 Oxygen Delivery Method Nasal Cannula Pulse Ox (%) 89 Pulse Rate (60-100 beats/min) 120 H 6th minute Oxygen Flow Rate (L/min) (L/min) 3 Oxygen Delivery Method Nasal Cannula Pulse Ox (%) 89 Pulse Rate (60-100 beats/min) 120 H Post-test Oxygen Flow Rate (L/min) (L/min) 3 Oxygen Delivery Method Nasal Cannula Pulse Ox (%) 99 Pulse Rate (60-100 beats/min) 90 Dyspnea Rufus Scale (0-10) 3 Exertion Rufus Scale (6-20) 6 Full Laps Walked 13 Partial Lap, Number of Tiles Walked 0 Total Distance Walked (ft) 767 07/31/20 11:21 Cardiopulmonary Services by Esperanza Ontiveros Patient currently wears 2L of O2 at home. On RA patients sat's were 96%, therefore test was initiated on RA. At the 1 minute tom patient's sat's dropped to 86%, therefore O2 was started at 2L. Time was given for patient to recover and sat's increased to 94%. At the 3 minute tom, patient's sat's dropped to 88%, O2 was then increased to 3L. After recovery time patients sat's improved to 91%. The remainder of the test was then completed at 3L and patients sat's were maintained 90% and greater. Initialized on 07/31/20 11:21 - END OF NOTE - Interpretation Interpretation: The patient ambulated 767 feet over the course of 6 minutes beginning on room air without assistive devices or breaks. Pretesting oxygen saturation was noted to be 96% on room air. With ambulation, the patient desaturated on several occasions, requiring the initiation and subsequent escalation of supplemental oxygen to 3 L/min with exertion, to maintain appropriate oxygen saturations. - Recommendations Recommendations: 3 L/min of supplemental oxygen should be utilized with exertion.
== END ==
PROVIDERS: PCP Family Medicine; Referring Provider Family Medicine; Visit Provider Family Medicine
DX: G47.33 Obstructive sleep apnea (adult) (pediatric) (principal); J44.9 Chronic obstructive pulmonary disease, unspecified; J96.11 Chronic respiratory failure with hypoxia; Z78.0 Asymptomatic menopausal state
CPT/HCPCS: 77080; 94618

== ENCOUNTER → 2020-08-07 11:55 | Outpatient (CLI) | payer MEDICAID, SELFPAY ==
[2020-08-07 18:06] LABS: ALB/GLOB Ratio 0.9 RATIO (0.9-2.4); AST(SGOT) 17 U/L (15-37); Alanine Aminotransfer ALT/SGPT 30 U/L (13-56); Albumin, Serum 3.5 g/dL (3.2-5.0); Alkaline Phosphatase 163 U/L (45-117); Anion Gap 5 (5-15); BUN 9 mg/dL (7-18); Calcium,Total 8.9 mg/dL (8.5-10.1); Chloride 109 mmol/L (98-107); Creatinine, Serum 0.75 mg/dL (0.55-1.02); EST Glomerular Filtration Rate 83 mL/min (>60); Est Glom Filt Rate - Afr Amer 101 mL/min (>60); Globulin 3.8 g/dL (2.2-4.2); Glucose 93 mg/dL (74-106); Protein, Total 7.3 g/dL (6.4-8.2); Sodium Level 140 mmol/L (136-145)
[2020-08-07 18:11] LABS: Vitamin D,25 Hydroxy 18.4 ng/mL
== END ==
PROVIDERS: PCP Family Medicine; Visit Provider Internal Medicine Critical Care Medicine
DX: M81.0 Age-related osteoporosis without current pathological fracture (principal)
CPT/HCPCS: 36415; 80053; 82306; 94762

== ENCOUNTER → 2020-08-08 12:52 | Outpatient (CLI) | payer MEDICAID, SELFPAY ==
[2020-07-29 15:06] VITALS: BMI 42.1
--- NOTE | 2020-08-08 16:21 | PFTCOMP_ITS ---
COMPLETE PULMONARY FUNCTION TEST INTERPRETATION Brief HPI: Patient is a 59 year old female, currently under the care of myself, who presents to [facility] for complete pulmonary function tests secondary to diagnosis of COPD. Respiratory therapist reports good effort and reproducible results. Interpretation: Forced expiration spirometry shows a mild large airways obstructive ventilatory defect with an FEV1 of 70% predicted. There is no significant bronchodilator response by strict ATS criteria. Spirograms are of good quality and plateau slowly, indicating slowly emptying areas of the lungs. The respiratory flow volume loop shows decreased expiratory flow rates at all lung volumes consistent with airway obstruction. Lung volumes by body plethysmography show an elevated total lung capacity at 5.99 L, 128% predicted. All other lung volumes are increased symmetrically. Diffusion capacity by carbon monoxide is decreased at 25% predicted. The airway resistance is normal. No previous pulmonary function tests were available for review. Impression: Irreversible mild large airways obstructive ventilatory defect, resulting in air trapping, and a disproportionate reduction in diffusion capacity, and a pattern consistent with COPD
== END ==
PROVIDERS: PCP Family Medicine; Referring Provider Internal Medicine Critical Care Medicine; Visit Provider Internal Medicine Critical Care Medicine
DX: G47.33 Obstructive sleep apnea (adult) (pediatric) (principal); J44.9 Chronic obstructive pulmonary disease, unspecified; J96.11 Chronic respiratory failure with hypoxia
CPT/HCPCS: 94060; 94726; 94729

== ENCOUNTER 2020-09-22 07:50 | Day surgery (SDC) | payer MEDICAID, SELFPAY ==
[2020-09-09 14:59] VITALS: BMI 42.3
[2020-09-19 09:39] VITALS: BMI 42.3
[2020-09-19 11:20] VITALS: BMI 42.5
[2020-09-20 11:03] LABS: Absolute Lymphocyte Count 1.56 X10^3/uL (0.83-4.51); Absolute Neutrophil Count 6.3 X10^3/uL (2.0-7.7); Basophil# 0.06 X10^3/uL; Basophil% 0.7 % (0-1); Eosinophil# 0.17 X10^3/uL; Eosinophils% 1.9 % (0-5); Hematocrit 40.2 % (37-47); Lymphocyte # 1.56 X10^3/ul (4.0); Lymphocyte % 17.6 % (19-41); Mean Corp Hgb Conc 32.3 g/dL (32-36); Mean Corpuscular Volume 92.8 fL (81-99); Mean Platelet Vol. 8.7 fl (6.2-12.0); Monocyte# 0.73 X10^3/uL; Monocyte% 8.2 % (0-10); NRBC Flagged by Analyzer 0 % (0-5); Neutrophil # 6.27 X10^3/uL (2.7-7.7); Neutrophil % 70.9 % (47-70); Platelet Count 312 K/mm3 (150-450); RBC Distribution Width CV 13.2 % (11.6-14.6); RBC Distribution Width SD 45.3 fl (35.1-43.9); Red Blood Count 4.33 M/mm3 (4.2-5.4); White Blood Count 8.9 K/mm3 (4.4-11.0)
[2020-09-20 11:15] LABS: Anion Gap 3 (5-15); BUN 8 mg/dL (7-18); BUN/Creat Ratio 10.8 RATIO (10-20); Calcium,Total 8.8 mg/dL (8.5-10.1); Chloride 105 mmol/L (98-107); Creatinine, Serum 0.74 mg/dL (0.55-1.02); EST Glomerular Filtration Rate 85 mL/min (>60); Est Glom Filt Rate - Afr Amer 103 mL/min (>60); Estimated Creatinine Clearance 66.04 ml/min; Glucose 122 mg/dL (74-106); Potassium 4.3 mmol/L (3.5-5.1); Sodium Level 137 mmol/L (136-145)
[2020-09-20 11:16] LABS: International Normalized Ratio 0.9; Prothrombin Time (Protime)PT. 11.7 SECONDS (11.7-14.9)
[2020-09-20 11:17] LABS: Partial Thromboplast Time 27.9 Seconds (24.1-36.2)
--- NOTE | 2020-09-22 08:00 | HP_ITS ---
HPI HPI History of Present Illness Details: This is a 59-year-old female that presents here today for a cardiovascular follow-up. She recently established with us for concerns over shortness of breath. She does have a history of mitral valve insufficiency, COPD and obstructive sleep apnea. We did do a trial of Lasix, she did not notice a difference with her breathing with either on or off of it. She will follow with pulmonary next week. She is SOB with any exertion. She finds that when she does activity her heart pounds. She is finding she needs to use her O2 everyday. Unfortunately she still does continue to continue to smoke. She does not think she can smoke less than 1/2 ppd. She does use her CPAP. She is compliant with that. She does not have any chest pain. She does not any palpitations. She does not have any lower extremity edema. 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 Is patient in pain?: No Allergies aloe vera Allergy (Verified 09/09/20 14:57) Other doxycycline Allergy (Verified 09/09/20 14:57) Other hydrocodone bitartrate [From Vicodin] Allergy (Verified 09/09/20 14:57) Upset Stomach oxycodone HCl [From Percocet] Allergy (Verified 09/09/20 14:57) Other Penicillins Allergy (Verified 09/09/20 14:57) yeast infection propoxyphene HCl [From Darvon] Allergy (Verified 09/09/20 14:57) Vomiting levofloxacin [From Levaquin] Adverse Reaction (Verified 09/09/20 14:57) Diarrhea Medications esomeprazole magnesium 20 mg capsule,delayed release 20 mg PO BID #180 cap 10/03/18 [Rx Confirmed 09/09/20] Valacyclovir HCl [Valacyclovir] 500 mg PO DAILY 01/03/20 [History Confirmed 09/09/20] tramadol 50 mg tablet 50 mg PO Q6H #60 tab 02/21/20 [Rx Confirmed 09/09/20] montelukast 10 mg tablet 10 mg PO DAILY 02/27/20 [History Confirmed 09/09/20] ipratropium 0.5 mg-albuterol 3 mg (2.5 mg base)/3 mL nebulization soln ml INHALATION 06/02/20 [History Confirmed 09/09/20] lisinopril 10 mg tablet 10 mg PO DAILY #90 tab 06/04/20 [Rx Confirmed 09/09/20] citalopram 20 mg tablet 40 mg PO DAILY tab 06/30/20 [History Confirmed 09/09/20] clobetasol 0.05 % topical ointment 1 applic TOPICAL QHS #30 g 07/25/20 [Rx Confirmed 09/09/20] gabapentin 400 mg capsule 400 mg PO DAILY 07/29/20 [History Confirmed 09/09/20] rosuvastatin 5 mg tablet 5 mg PO .q3days tab 07/29/20 [History Confirmed 09/09/20] budesonide-formoterol HFA 160 mcg-4.5 mcg/actuation aerosol inhaler 2 puff INHALATION BID #1 ea 09/05/20 [Rx Confirmed 09/09/20] tiotropium bromide 2.5 mcg/actuation mist for inhalation 2 puff INHALATION QDAY #1 ea 09/05/20 [Rx Confirmed 09/09/20] alendronate 70 mg tablet 70 mg PO QWEEK 09/09/20 [History Confirmed 09/09/20] PFSH Medical History Nonrheumatic mitral (valve) insufficiency (Chronic) Nicotine dependence (Chronic) Hyperlipidemia (Chronic) Abdominal bloating with cramps (Chronic) Anxiety (Chronic) Arthritis (Chronic) Bilateral headaches (Chronic) COPD (chronic obstructive pulmonary disease) (Chronic) Carpal tunnel syndrome (Chronic) Environmental allergies (Chronic) GERD (gastroesophageal reflux disease) (Chronic) Hirsutism (Chronic) History of cancer of vulva (Chronic) Hx of colon cancer, stage I (Chronic) Hyperhidrosis (Chronic) IBS (irritable bowel syndrome) (Chronic) Morbid obesity (Chronic) Pain in left lower leg (Chronic) Radicular low back pain (Chronic) Recurrent herpes simplex (Chronic) Seasonal allergies (Chronic) Segmental and somatic dysfunction of cervical region (Chronic) Segmental and somatic dysfunction of lumbar region (Chronic) Segmental and somatic dysfunction of pelvic region (Chronic) Segmental and somatic dysfunction of thoracic region (Chronic) Sleep apnea (Chronic) Abnormal colonoscopy (Resolved) Acute asthma (Resolved) TIA (transient ischemic attack) (Resolved) Surgical History History Valvular Surgery (Resolved) History of bladder surgery (Resolved) History of breast surgery (Resolved) History of carpal tunnel release (Resolved) History of cataract surgery (Resolved) History of cornea transplant (Resolved) History of esophagogastroduodenoscopy (EGD) (Resolved) History of esophagogastroduodenoscopy (EGD) (Resolved 07/05/18) History of herniorrhaphy (Resolved) History of herniorrhaphy (Resolved 12/2019) History of left heart catheterization (Resolved) History of nasal septoplasty (Resolved) History of partial hysterectomy (Resolved) history of bladder sling (Resolved) S/P colonoscopy (Inactive ~07/05/18) Family History Brother Myocardial infarction, Onset Age: 63 Other Alcoholism Alzheimer disease Anxiety Arthritis Asthma Breast cancer Cervical cancer Colon cancer Depression Heart disease High cholesterol Lung cancer Suicidal behavior Social History (Updated 09/10/20 @ 08:38 by Lyn CORONEL, PA) Smoking Status: Current every day smoker tobacco type: cigarettes quit status: not considering quitting alcohol intake: never substance use type: does not use caffeine: Yes what type of physical activity do you participate in: none seatbelt use: always do you feel safe at home: Yes additional social history: - Joel ROS Const Const: Positive for fatigue, weakness and other (35 ppy history, continues to smoke); negative for headache(s), frequent falls, difficulty sleeping or excessive sweating Eyes Eyes: Negative for loss of peripheral vision, transient loss of vision, blurry vision, double vision or tunnel vision ENT ENT: Negative for headache(s), dizziness, Nosebleed/epistaxis or balance problems Cardio Chest Pain: Yes (Left sided chest heaviness) Character: dull (heaviness) Onset: at rest, exercise Location: left chest Duration: minutes, hours Exacerbation: activity, rest Palpitations: Yes feels like its: skipping, thumping Edema: None Muscle aches with walking: None Resp Respiratory: Positive for SOB with activity (with little ambulation); negative for SOB at rest, SOB orthopnea\SOB lying down, Cough or paroxysmal nocturnal dyspnea GI GI: Negative nausea, vomiting, heartburn or black,tarry stools : Negative for hematuria Musc Musc: Negative for muscle aches/ myalgia, muscle weakness, joint pain or balance problems Skin Skin: Negative non-healing lesions, rash or unusual bruising Neuro Neuro: Positive for weakness; negative for dizziness, lightheadedness, near syncope, syncope, orthostatic symptoms, frequent falls, headache(s), blurry vision, double vision or lack of coordination Ranjan Hematologic/Lymphatic: Negative for easy bleeding or easy bruising Endo Endo: Positive for fatigue; negative for excessive sweating or increased thirst/drinking Psych Psych: Negative for anxiety or depression Allergy Allergy/Immunology: Negative for hives, Negative for rash Assessment & Plan 1. Dyspnea on exertion R06.00 Plan Patient's BNP was negative. She did not seem to benefit from diuretics. With her continued concern over shortness of breath, chest pain and negative stress test would like to proceed with a right and left heart catheterization. Orders Orders: Left & Right Heart Cath 09/09/20 Basic Metabolic Profile (BMP) 09/09/20 Partial Thromboplast Time 09/09/20 Prothrombin Time w/INR 09/09/20 CBC W/Diff, Automated 09/09/20 2. Nonrheumatic mitral (valve) insufficiency I34.0 Plan Patient does have moderate mitral insufficiency. We will continue to monitor with echocardiograms as deemed appropriate. Orders Orders: Left & Right Heart Cath 09/09/20 Basic Metabolic Profile (BMP) 09/09/20 Partial Thromboplast Time 09/09/20 Prothrombin Time w/INR 09/09/20 CBC W/Diff, Automated 09/09/20 3. Hyperlipidemia E78.5 Plan Lipids are less than ideal however patient is intolerant to higher doses of statins. For now she will continue with her current dose of statin. This is being managed by her primary care doctor. Orders Orders: Left & Right Heart Cath 09/09/20 Basic Metabolic Profile (BMP) 09/09/20 Partial Thromboplast Time 09/09/20 Prothrombin Time w/INR 09/09/20 CBC W/Diff, Automated 09/09/20 Plan Detail Other Orders Orders: 12 Lead EKG performed by MONICA 09/09/20 R07.9 Additional Comments Reviewed with Dr. Hagen he agrees with plan of care. Goals Decrease pain Increase ROM Improve ability to perform house cleaning Follow Up 6 Months (MANAGEMENT MANAGER) 09/09/20 (pt needs a right and left heart cath with MANAGEMENT MANAGER) Coding Level of Care Code Off vis,est,level 4 Diagnoses Dyspnea on exertion R06.00 Nonrheumatic mitral (valve) insufficiency I34.0 Hyperlipidemia E78.5 Coding Level of Care Code Off vis,est,level 4 Diagnoses Dyspnea on exertion R06.00 Nonrheumatic mitral (valve) insufficiency I34.0 Hyperlipidemia E78.5 Supplemental Info Supplemental Information Echocardiogram done at outside hospital in April 2020 demonstrates ejection fraction of 68%. Moderate mitral regurgitation. Stress test in 05/2020 was negative for ischemia. PFT 07/2020: Irreversible mild large airways obstructive ventilatory defect, resulting in air trapping, and a disproportionate reduction in diffusion capacity, and a pattern consistent with COPD 6 minute walk test: Patient currently wears 2L of O2 at home. On RA patients sat's were 96%, therefore test was initiated on RA. At the 1 minute tom patient's sat's dropped to 86%, therefore O2 was started at 2L. Time was given for patient to recover and sat's increased to 94%. At the 3 minute tom, patient's sat's dropped to 88%, O2 was then increased to 3L. After recovery time patients sat's improved to 91%. The remainder of the test was then completed at 3L and patients sat's were maintained 90% and greater. Diagnostics Electrocardiogram 09/09/20 Pulmonary Pulmonary Function Test 08/08/20 Pulmonary Exercise Test 08/01/20
[2020-09-22 10:01] LABS: Blood Gas Specimen Type VEN; VBG BASE EXCESS 2 mmol/L (-1.0-3.5); VBG Bicarbonate 28 mmol/L (22-26); VBG PO2 36 mmHg (25-40); VBG SO2 65 % (50-70); VBG TCO2 30 mmol/L (23-33); VBG pCO2 51.1 mmHg (41-51); VBG pH 7.35 (7.32-7.42)
[2020-09-22 10:01] LABS: Blood Gas Specimen Type VEN; VBG BASE EXCESS 2 mmol/L (-1.0-3.5); VBG Bicarbonate 28 mmol/L (22-26); VBG PO2 37 mmHg (25-40); VBG SO2 67 % (50-70); VBG TCO2 30 mmol/L (23-33); VBG pCO2 51.3 mmHg (41-51); VBG pH 7.35 (7.32-7.42)
[2020-09-22 10:05] LABS: Base Excess 1 mmol/L (-2 to +2); Bicarbonate 26.4 mmol/L (22-26); Blood Gas Specimen Type ART; PO2 95 mmHG (75-100); SO2 97 % (95-99); Total Carbon Dioxide 28 mmol/L; pCO2 46.6 mmHg (35-45); pH 7.36 (7.35-7.45)
--- NOTE | 2020-09-22 10:46 | CL.D_ITS ---
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 RECOMMENDATIONS Medical therapy Would recommend follow-up with the pulmonary service for adjustment of CPAP mask. DESCRIPTION OF PROCEDURE The patient arrived to the procedure lab. The risks and benefits of the procedure as well as a full d escription of our services here and current unavailability of surgical backup were fully explained to the patient and/or their significant other prior to the catheterization. The Timeout was completed, verifying the correct patient and procedure. The patient's procedural site was prepped and draped in the usual fashion. Local anesthetic was given subcutaneously to right radial region with Lidocaine 2% . Using a modified Seldinger technique, arterial access was obtained via the right radial artery, a 6 Fr sheath was inserted. O2 saturations were then obtained. The Thermal dilution catheter was then re moved. Left Coronary Artery selective angiography was performed in multiple views using a 5 Fr. 4.0 T iger catheter. Left Ventriculography was performed in SUERO projection using a 5 Fr. JR 4. LV to AO pul lback pressures were then recorded. Right Coronary Artery selective angiography was then performed in multiple views using a 5 Fr. JR 4 catheter.The venous sheath was then pulled and manual compression applied until hemostasis achieved CORONARY ANGIOGRAPHY DOMINANCE: Right Dominant LEFT HEART ASSESSMENT Left Ventricular Ejection Fraction: by LV Gram 60 % Normal LV wall motion Normal Left Ventricular systolic function Kristen CO: 4.89 Kristen CI: 2.35 PW: 18/19 16 PA: 43/23 33 RV: 38/4 10 RA: 13/6 7 PVR: 261 SVR: 1325 Right Heart pressures - elevated LEFT MAIN: Angiographically normal LEFT ANTERIOR DESCENDING ARTERY: Mild luminal irregularities DIAGONAL 1: Ostial - 50 % Stenosis CIRCUMFLEX ARTERY: Mild luminal irregularities RIGHT CORONARY ARTERY: No significant disease noted COMPLICATIONS No Complications PROCEDURE MEDICATIONS Versed 1 mg IV Versed 1 mg IV Fentanyl 25 mcg IV Versed 1 mg IV Fentanyl 25 mcg IV Oxygen: 3 L/min via nasal cannula-as per home Oxygen: 2 L/min via nasal cannula SUMMARY OF HEMODYNAMIC DATA Time AIR REST ECG 08:27:10 ECG 09:02:12 RV 38/4, 10 09:49:57 PA 43/23 (33) PA 09:52:01 PW 18/19 (16) PV 09:52:41 RA 13/6 (7) SV 09:55:23 AO 113/68 (88) SA 09:58:31 LV 132/-8, 21 10:05:38 LV 132/-5, 23 10:05:45 LVp 123/27, 43 10:06:19 LV 135/-5, 22 10:06:43 LVp 128/3, 24 10:06:54 AOp 120/-29 (84) 10:06:59 AO 121/84 (103) 10:08:54 ECG 10:38:13 Type SV CO (l/m) CI (l/m/ HR Time AIR REST Kristen 61.90 4.89 2.35 79 08:27:10 Label % O2 Pres/Loc Time AIR REST AO 97 PV 10:03:11 RA 65 SV 10:03:15 PA 67 PA 10:03:24 Signed By Ulysses Hagen MD On 09/22/2020 10:44:46 AM Ulysses Hagen MD
== END 2020-09-22 12:15 | disposition home or self-care (01) ==
LOC: CLSP 07:51
PROVIDERS: Physician Assistant Medical; PCP Family Medicine; Referring Provider Internal Medicine Cardiovascular Disease; Visit Provider Internal Medicine Cardiovascular Disease
DX: I25.10 Atherosclerotic heart disease of native coronary artery without angina pectoris (principal); I34.0 Nonrheumatic mitral (valve) insufficiency; R06.00 Dyspnea, unspecified; R06.02 Shortness of breath; J44.9 Chronic obstructive pulmonary disease, unspecified; E78.5 Hyperlipidemia, unspecified; K21.9 Gastro-esophageal reflux disease without esophagitis; F17.210 Nicotine dependence, cigarettes, uncomplicated; Z99.81 Dependence on supplemental oxygen; Z79.51 Long term (current) use of inhaled steroids; Z79.899 Other long term (current) drug therapy
CPT/HCPCS: 36415; 80048; 82803; 85025; 85610; 85730; 93460; 99152; 99153; C1751; J7040; C1769; C1894; Q9967

== ENCOUNTER → 2020-09-25 14:59 | Outpatient (CLI) | payer MEDICAID, SELFPAY ==
[2020-09-19 11:20] VITALS: BMI 42.5
== END ==
PROVIDERS: PCP Family Medicine; Referring Provider Internal Medicine Cardiovascular Disease; Visit Provider Internal Medicine Cardiovascular Disease
DX: M79.631 Pain in right forearm (principal); R22.31 Localized swelling, mass and lump, right upper limb; M79.89 Other specified soft tissue disorders; S55.101A Unspecified injury of radial artery at forearm level, right arm, initial encounter
CPT/HCPCS: 93931

== ENCOUNTER → 2020-10-02 13:55 | Outpatient (CLI) | payer MEDICAID, SELFPAY ==
[2020-09-19 11:20] VITALS: BMI 42.5
[2020-09-29 13:51] VITALS: BMI 42.3
== END ==
PROVIDERS: PCP Family Medicine; Visit Provider Internal Medicine Cardiovascular Disease
DX: I74.2 Embolism and thrombosis of arteries of the upper extremities (principal)
CPT/HCPCS: 93931

== ENCOUNTER → 2020-10-15 16:35 | Outpatient (CLI) | payer MEDICAID, SELFPAY ==
[2020-09-29 13:51] VITALS: BMI 42.3
[2020-10-15 17:48] LABS: Absolute Lymphocyte Count 2.22 X10^3/uL (0.83-4.51); Basophil# 0.05 X10^3/uL; Basophil% 0.5 % (0-1); Eosinophil# 0.24 X10^3/uL; Eosinophils% 2.6 % (0-5); Hematocrit 41.8 % (37-47); Hemoglobin 13.4 g/dL (12.0-15.0); Lymphocyte # 2.22 X10^3/ul (4.0); Lymphocyte % 24.1 % (19-41); Mean Corp Hgb Conc 32.1 g/dL (32-36); Mean Corpuscular Hgb 29.4 pg (27.0-32.0); Mean Corpuscular Volume 91.7 fL (81-99); Monocyte# 0.59 X10^3/uL; Monocyte% 6.4 % (0-10); NRBC Flagged by Analyzer 0 % (0-5); Neutrophil # 6.03 X10^3/uL (2.7-7.7); Neutrophil % 65.6 % (47-70); Platelet Count 339 K/mm3 (150-450); RBC Distribution Width CV 13.2 % (11.6-14.6); RBC Distribution Width SD 44.9 fl (35.1-43.9); Red Blood Count 4.56 M/mm3 (4.2-5.4); White Blood Count 9.2 K/mm3 (4.4-11.0)
[2020-10-15 18:06] LABS: AST(SGOT) 13 U/L (15-37); Alanine Aminotransfer ALT/SGPT 22 U/L (13-56); Albumin, Serum 3.6 g/dL (3.2-5.0); Alkaline Phosphatase 146 U/L (45-117); Anion Gap 7 (5-15); BUN 10 mg/dL (7-18); BUN/Creat Ratio 14.2 RATIO (10-20); Calcium,Total 8.6 mg/dL (8.5-10.1); Chloride 103 mmol/L (98-107); Cholesterol 219 mg/dL (200); EST Glomerular Filtration Rate 90 mL/min (>60); Est Glom Filt Rate - Afr Amer 109 mL/min (>60); Globulin 3.7 g/dL (2.2-4.2); Glucose 86 mg/dL (74-106); High Density Lipoprotein 45 mg/dL; Protein, Total 7.3 g/dL (6.4-8.2); Sodium Level 138 mmol/L (136-145); Triglycerides 174 mg/dL; Very Low Density Lipoprotein 35 mg/dL (5-40)
== END ==
PROVIDERS: PCP Family Medicine; Referring Provider Family Medicine; Visit Provider Family Medicine
DX: E78.5 Hyperlipidemia, unspecified (principal); K21.9 Gastro-esophageal reflux disease without esophagitis
CPT/HCPCS: 36415; 80053; 80061; 85025

== ENCOUNTER → 2020-10-27 14:02 | Outpatient (CLI) | payer MEDICAID, SELFPAY ==
[2020-09-29 13:51] VITALS: BMI 42.3
== END ==
PROVIDERS: PCP Family Medicine; Referring Provider Surgery Vascular Surgery; Visit Provider Surgery Vascular Surgery
DX: I77.1 Stricture of artery (principal); F17.200 Nicotine dependence, unspecified, uncomplicated; I74.2 Embolism and thrombosis of arteries of the upper extremities; K21.9 Gastro-esophageal reflux disease without esophagitis; M81.0 Age-related osteoporosis without current pathological fracture; J98.4 Other disorders of lung; E78.00 Pure hypercholesterolemia, unspecified; I51.9 Heart disease, unspecified; F41.9 Anxiety disorder, unspecified; Z86.718 Personal history of other venous thrombosis and embolism
CPT/HCPCS: 93931

== ENCOUNTER → 2021-01-06 12:23 | Outpatient (CLI) | payer MEDICAID, SELFPAY ==
[2020-12-17 09:52] VITALS: BMI 42.3
--- NOTE | 2021-01-06 12:25 | ECHOCS_ITS ---
Reason For Study: DYSPNEA/SOB Procedure This was a 2D Doppler, Color Flow transthoracic echocardiogram. The study was technically difficult. Contrast injection was performed. Exam performed in department. Left Ventricle Normal LV size. Left ventricular systolic function is normal. The estimated ejection fraction is 65 %. No evidence for diastolic dysfunction. No regional wall motion abnormalities noted. Right Ventricle Normal RV size. Normal systolic function. Atria The left atrium is mildly enlarged. Normal right atrium. No doppler evidence for ASD. Mitral Valve There is no mitral annular calcification. Mild focal mitral valve calcification of the anterior leaflet. Mild-Moderate (1-2+) eccentric mitral valve insufficiency. Tricuspid Valve Normal tricuspid valve. Trivial tricuspid valve insufficiency. Right ventricular systolic pressure estimated to be 39 mmHg. Aortic Valve Trisinus/trileaflet aortic valve. Mild focal aortic valve thickening. Pulmonic Valve The pulmonic valve is not well visualized. Great Vessels Normal sized aortic root. Pericardium/Pleural No pericardial effusion. Medication 22 gauge I.V. with prn adaptor inserted into right arm. Diluted definity 4ml given slow IV push to enhance endocardial definition. MMode/2D Measurements & Calculations LVIDd: 4.9 cm IVSd: 0.83 cm Ao root diam: 3.1 cm LVIDs: 3.0 cm LVPWd: 0.88 cm RVDd: 3.1 cm FS: 39.0 % LAV(MOD-bp): 53.5 ml LVAd ap4: 31.3 cm2 SV(MOD-sp4): 76.6 ml LAV(MOD-bp) Indexed: 25.7 ml/m2 LVLd ap4: 7.4 cm LAV(MOD-sp2): 54.2 ml EDV(MOD-sp4): 109.1 ml LAV(MOD-sp4): 52.1 ml EDV(sp4-el): 111.3 ml LVAs ap4: 15.9 cm2 LVLs ap4: 6.3 cm ESV(MOD-sp4): 32.5 ml ESV(sp4-el): 34.0 ml EF(MOD-sp4): 70.2 % EF(sp4-el): 69.4 % SV(sp4-el): 77.3 ml LA A4 area: 18.6 cm2 LA dimension(2D): 3.6 cm RA A4 area: 15.9 cm2 Time Measurements MV dec time: 0.23 sec Doppler Measurements & Calculations MV E max guevara: 127.4 cm/sec Lat Peak E' Guevara: 10.1 cm/sec Med Peak E' Guevara: 11.0 cm/sec MV A max guevara: 113.3 cm/sec E/E' lat: 12.6 E/E' med: 11.6 MV E/A: 1.1 Ao V2 max: 159.6 cm/sec LV V1 max: 142.7 cm/sec PA V2 max: 109.2 cm/sec Ao max P.2 mmHg LV V1 max P.1 mmHg TR max guevara: 301.7 cm/sec TR max P.4 mmHg ECHO/Echo Complete W/ Contrast Interpretation Summary The study was technically difficult. Contrast injection was performed. Left ventricular systolic function is normal. The estimated ejection fraction is 65 %. The left atrium is mildly enlarged. Mild focal mitral valve calcification of the anterior leaflet. Mild-Moderate (1-2+) eccentric mitral valve insufficiency. Trivial tricuspid valve insufficiency. Mild focal aortic valve thickening. Right ventricular systolic pressure estimated to be 39 mmHg. No evidence for diastolic dysfunction. Ordering Physician: Nikki Olson Referring Physician: SATISH PETERSON Performed By: Yael Fletcher RDCS
[2021-01-06 12:50] VITALS: PULSE 79; PULSE 80; PULSE 84; PULSE 89; PULSE 92; PULSE 93; PULSE 96; O2SAT 84; O2SAT 87; O2SAT 89; O2SAT 90; O2SAT 91; O2SAT 96
--- NOTE | 2021-01-06 12:56 | CPS ---
PATIENT HAS OXYGEN AT HOME, DME IS DASCO. ON ROOM AIR PRIOR TO TESTING. PT BRIEFLY RESTED AT MINUTES 2 AND 5 OF TESTING FOR INCREASE WOB AND TO INCREASE OXYGEN FOR SPO2 <88%. PT REQUIRED 3LPM WITH AMBULATION.
--- NOTE | 2021-01-06 15:38 | WT_ITS ---
PSN 6 Minute Walk Test 6 Minute Walk Test 6 Minute Walk Test: 6 Minute Walk Test PSN:6-Minute Walk Test Start: 01/06/21 12:49 Freq: Status: Active Protocol: [id number] Document 01/06/21 12:50 [facility] (Rec: 01/06/21 12:58 [facility] [id number]) 6 Minute Walk Test Date Performed 01/06/21 Time Performed 12:30 Height 5 ft 3 in Weight: 104.326 kg Weight in Pounds 230.[address]: Perfecto Krause Assistive device used: Walker Pre-test Oxygen Delivery Method Room Air Pulse Ox (%) 91 Pulse Rate (60-100 beats/min) 79 Dyspnea Rufus Scale (0-10) 2 1st minute Oxygen Delivery Method Room Air Pulse Ox (%) 89 Pulse Rate (60-100 beats/min) 84 Dyspnea Rufus Scale (0-10) 2 Number of Rests Taken 0 2nd minute Oxygen Delivery Method Room Air Pulse Ox (%) 84 Pulse Rate (60-100 beats/min) 89 Dyspnea Rufus Scale (0-10) 3 Number of Rests Taken 1 Reported Symptoms Increased Work of Breathing 3rd minute Oxygen Flow Rate (L/min) (L/min) 2 Oxygen Delivery Method Nasal Cannula Pulse Ox (%) 91 Pulse Rate (60-100 beats/min) 92 Dyspnea Urfus Scale (0-10) 3 Number of Rests Taken 0 Reported Symptoms Increased Work of Breathing 4th minute Oxygen Flow Rate (L/min) (L/min) 2 Oxygen Delivery Method Nasal Cannula Pulse Ox (%) 90 Pulse Rate (60-100 beats/min) 93 Dyspnea Rufus Scale (0-10) 3 Number of Rests Taken 0 Reported Symptoms Increased Work of Breathing 5th minute Oxygen Flow Rate (L/min) (L/min) 2 Oxygen Delivery Method Nasal Cannula Pulse Ox (%) 87 Pulse Rate (60-100 beats/min) 96 Dyspnea Rufus Scale (0-10) 3 Number of Rests Taken 1 Reported Symptoms Increased Work of Breathing 6th minute Oxygen Flow Rate (L/min) (L/min) 3 Oxygen Delivery Method Nasal Cannula Pulse Ox (%) 90 Pulse Rate (60-100 beats/min) 93 Dyspnea Rufus Scale (0-10) 3 Number of Rests Taken 0 Reported Symptoms Increased Work of Breathing Post-test Oxygen Flow Rate (L/min) (L/min) 3 Oxygen Delivery Method Nasal Cannula Pulse Ox (%) 96 Pulse Rate (60-100 beats/min) 80 Dyspnea Rufus Scale (0-10) 2 Full Laps Walked 10 Partial Lap, Number of Tiles Walked 17 Total Distance Walked (ft) 607 01/06/21 12:56 Cardiopulmonary Services by Opal Horner PATIENT HAS OXYGEN AT HOME, DME IS DASCO. ON ROOM AIR PRIOR TO TESTING. PT BRIEFLY RESTED AT MINUTES 2 AND 5 OF TESTING FOR INCREASE WOB AND TO INCREASE OXYGEN FOR SPO2 <88%. PT REQUIRED 3LPM WITH AMBULATION. Initialized on 01/06/21 12:56 - END OF NOTE Interpretation Interpretation: The patient was able to ambulate only 607 feet over the course of 6 minutes with the assistance of a walker and 2 breaks. The patient was noted to be 91% on room air and desaturated to 84% in the second minute. Patient was placed on 2 L nasal cannula. The patient required up to 3 L nasal cannula to maintain saturation throughout testing. These findings are consistent with a respiratory limitation exercise tolerance. Recommendations Recommendations: The patient requires no supplemental oxygen at rest, but should be using 3 L nasal cannula with any exertion.
== END ==
PROVIDERS: PCP Family Medicine; Referring Provider Nurse Practitioner Acute Care; Visit Provider Nurse Practitioner Acute Care
DX: R06.00 Dyspnea, unspecified (principal); R06.02 Shortness of breath
CPT/HCPCS: 93306; 94618; Q9957; A4216; C8929; J3490

== ENCOUNTER → 2021-01-08 12:21 | Outpatient (CLI) | payer MEDICAID, SELFPAY ==
[2020-12-17 09:52] VITALS: BMI 42.3
--- NOTE | 2021-01-08 14:17 | PFTCOMP ---
COMPLETE PULMONARY FUNCTION TEST INTERPRETATION Brief HPI: Patient is a 60 year old female, currently under the care of myself, who presents to [facility] for complete pulmonary function tests secondary to diagnosis of dyspnea. Respiratory therapist reports good effort and reproducible results. Interpretation: Forced expiration spirometry shows a moderate large airways obstructive ventilatory defect with an FEV1 of 67% predicted. There is a significant bronchodilator response in FEV1 by strict ATS criteria. Spirograms are of good quality and plateau slowly, indicating slowly emptying areas of the lungs. The respiratory flow volume loop shows decreased expiratory flow rates at all lung volumes consistent with airway obstruction. Lung volumes by body plethysmography show an elevated total lung capacity at 5.9L, 126% predicted. FRC and RV are elevated out of proportion. Lung volume measurements are consistent with hyperinflation and air-trapping. Diffusion capacity by carbon monoxide is decreased at 18% predicted. The airway resistance is normal. Compared to previous pulmonary function tests from 08/08/2020, there is been a significant reduction in FVC, FEV1 and DLCO. Impression: Partially reversible moderate large airways obstructive ventilatory defect resulting in air trapping with hyperinflation and a disproportionate reduction in diffusion capacity. There has been worsening compared to previous testing.
== END ==
PROVIDERS: PCP Family Medicine; Referring Provider Nurse Practitioner Acute Care; Visit Provider Nurse Practitioner Acute Care
DX: R06.00 Dyspnea, unspecified (principal)
CPT/HCPCS: 94060; 94726; 94729

== ENCOUNTER 2021-01-27 06:45 | Day surgery (SDC) | payer MEDICAID, SELFPAY ==
[2020-12-17 09:52] VITALS: BMI 42.3
[2021-01-27] VITALS (8 sets, daily range): BP systolic 111–129; BP diastolic 63–76; PULSE 76–95; RESP 16–20; TEMP 36.6–36.9; O2SAT 96–100; BMI 42.1
--- NOTE | 2021-01-27 07:15 | PCM.HP.BLA ---
History and Physical Date of Admission: 01/27/21 Date of Service: 12/29/20 MR#:[id number]:[id number]: DEVON BARAHONA [facility] #:[id number]:[id number] Provider:Keri Connelly/Sex: 60/F [place] [place] Intake Intake Visit Reasons: LEFT HAND Chief Complaint: external cyst Allergies aloe vera Allergy (Verified 12/17/20 14:20) Other doxycycline Allergy (Verified 12/17/20 14:20) Other hydrocodone bitartrate [From Vicodin] Allergy (Verified 12/17/20 14:20) Upset Stomach oxycodone HCl [From Percocet] Allergy (Verified 12/17/20 14:20) Other Penicillins Allergy (Verified 12/17/20 14:20) yeast infection propoxyphene HCl [From Darvon] Allergy (Verified 12/17/20 14:20) Vomiting levofloxacin [From Levaquin] Adverse Reaction (Verified 12/17/20 14:20) Diarrhea PFSH Medical History Abdominal bloating with cramps Abnormal colonoscopy Acute asthma Anxiety Arthritis Bilateral headaches Blood clot in vein Carpal tunnel syndrome Chronic respiratory failure with hypoxia COPD (chronic obstructive pulmonary disease) Environmental allergies GERD (gastroesophageal reflux disease) Hirsutism History of cancer of vulva Hx of colon cancer, stage I Hyperhidrosis Hyperlipidemia IBS (irritable bowel syndrome) Morbid obesity Nicotine dependence Nonobstructive atherosclerosis of coronary artery Nonrheumatic mitral (valve) insufficiency Obstructive sleep apnea syndrome Pain in left lower leg Radicular low back pain Recurrent herpes simplex Seasonal allergies Segmental and somatic dysfunction of cervical region Segmental and somatic dysfunction of lumbar region Segmental and somatic dysfunction of pelvic region Segmental and somatic dysfunction of thoracic region Sleep apnea Stage 2 moderate COPD by GOLD classification TIA (transient ischemic attack) Surgical History history of bladder sling History of bladder surgery History of breast surgery History of carpal tunnel release History of cataract surgery History of cornea transplant History of esophagogastroduodenoscopy (EGD) History of esophagogastroduodenoscopy (EGD) (07/05/18) History of herniorrhaphy History of herniorrhaphy (12/2019) History of left heart catheterization History of nasal septoplasty History of partial hysterectomy History of right and left heart catheterization (09/22/20) History Valvular Surgery S/P colonoscopy (~07/05/18) Family History Brother Myocardial infarction, Onset Age: 63 Other Alcoholism Alzheimer disease Anxiety Arthritis Asthma Breast cancer Cervical cancer Colon cancer Depression Heart disease High cholesterol Lung cancer Suicidal behavior Social History Smoking Status: Current every day smoker tobacco type: cigarettes quit status: not considering quitting alcohol intake: never substance use type: does not use caffeine: Yes what type of physical activity do you participate in: none seatbelt use: always do you feel safe at home: Yes additional social history: - Joel JACKELINE LEFT HAND Details: Parts of this documentation were recorded by a scribe, this documentation accurately reflects the service provided and the decisions made by me, Dr. Bernard Montes, DO 12/29/20 0756. DEVON BARAHONA is a 60 year old F here today for left ring trigger finger. Pain is located over MCP joint on left ring finger. Today in the office her pain is a 7/10. The pain is constant, morning and nights are the worst. The pain radiates to the base of the palm. Onset was bout 2 years ago. She was in a wheelchair in 2019 and this is what aggravated her hand she thinks, denies any other precipitating event. Denies injury to left hand. She has had a carpal tunnel release. Aggravating factors include bending her ring finger and using it in general. She has tried ice/heat, massage, injections 09/26/19 and 02/27/20. She has never done formal OT.These injections lasted about 4-5 months. She has tried bracing/splinting at night to keep it from bending and this does not help. Denies DM, Inflammatory conditions or chemotherapy. She takes Eliquis after a blood clot in right arm after catheterization. She is right hand dominant. She is having locking events but it is not everytime that she bands her finger. Questions whether we still have her Supartz injections for her knees. ROS Const Denies chills and Denies fever(s) ENT Denies neck pain Card Denies dyspnea Resp Denies dyspnea GI Denies nausea and Denies vomiting Musc Denies abnormal gait, Reports arthralgias, Denies atrophy, Reports back pain, Reports joint swelling, Reports limited range of motion, Denies neck pain, Reports numbness (from back problems), Reports radiating pain into limb and Reports tingling (from back problems ) Skin/Breast Denies rash Neuro No abnormal gait, Yes numbness (from back problems) and Yes tingling (from back problems ) Ortho Exam General General: Yes no acute distress Neurologic: Yes alert and Yes oriented x3 Psychologic: Yes reasonable and appropriate Right Wrist/Hand Skin/Wound: No Swelling and No Ecchymosis Left Wrist/Hand Skin/Wound: No Swelling, No Ecchymosis, Yes nail intact, Yes capillary refill normal and No erythema Left Wrist: Yes ROM-Extension 0-60, Yes ROM-Flexion 0-80, Yes ROM-Pronation 0-80 and Yes ROM-Supination 0-90 WRIST: Hypertrophied tender A1 rohan. Did not trigger in office today. Strength 5/5. Neurovascularly intact. Radial pulse 2/4. Right Knee Skin/Wound: No erythema, No ecchymosis and No swelling Knee ROM: Yes ROM-Extension -20 to 0 and Yes ROM-Flexion 0-140 Examination: Yes Med jt line tenderness and Yes Lat jt line tenderness Office Procedures Ortho Injections Injections Yes Knee Right Details: Obtained consent for injection. Under sterile conditions, injected the patient's right knee with 2cc bupivacaine, 2cc lidocaine and 1cc depomedrol. The patient tolerated the injection well without any noted complication. Patient should call our office if redness develops, pain worsens or if they have any concerns. Office Meds Depo-Medrol Performing Provider: Bernard Montes DO Administered by: Bernard Montes DO on 12/29/20 15:47 Dose Route Admin Location Lot Number Expiration Date [place] [employer] 40 mg intra-articular right knee [id number] 05/18/21 1141-2596-80 [employer] Supplemental Info 07/20/2019 x-ray bilateral knees: Faint joint space narrowing medially bilaterally no significant spurring or sclerosis no acute findings 06/18/2019 x-ray left ankle: Severe osteopenia compared to prior x-rays February 2019 fracture line lateral malleolus still visible lateral view only appears healed 04/04/2019 MRI left ankle: Nondisplaced fractures distal fibula and posterior medial malleolus sprain of anterior and posterior tibiofibular ligaments avulsion type injury of the peroneal is longus at medial cuneiform split tear peroneal brevis tendon (report only no images) She has had trigger finger injections in the past and they have worked, but now she wishes to proceed with a left ring finger A1 rohan release. She would like to schedule as soon as possible. Tentatively we will schedule her for 01/27/21. Discussed that she will need medical clearance before surgery. We discussed the risks, benefits and alternatives of surgery reviewed including but not limited to bleeding, infection, nerve, artery and/or tissue damage, fracture, VTE, continued pain. Discussed the expected preop, intraop, and post op course. Consent was signed in the office today. She will need to stop Eliquis before surgery. Mentored her on the need to quit smoking and the benefits. She has a history of steroid injections in bilateral knees. She had an injury a few months ago to her right knee and wished today to proceed with a steroid injection for her pain. An injection was given in the right knee today in the office and tolerated well. She has 2 Supartz injections left and wishes to save those for another time. The patients questions were answered and she is in agreement with the plan. Coding Level of Care Code Off vis,est,level 3 Diagnoses Trigger finger, left ring finger M65.342 Primary osteoarthritis of right knee M17.11 Nicotine dependence F17.210 Nicotine product type: cigarettes Substance use status: uncomplicated CPT Codes litigator.knee ([id number]) Assessment and Plan Assessment and Plan (1) Trigger finger, left ring finger: (2) Primary osteoarthritis of right knee: (3) Nicotine dependence: Status: Chronic Qualifiers: Nicotine product type: cigarettes Substance use status: uncomplicated Qualified Code(s): F17.210 - Nicotine dependence, cigarettes, uncomplicated Orders: Orders: Ortho Injections Today M17.11 Plan - Dr. Bernard Montes, DO: She has had trigger finger injections in the past and they have worked, but now she wishes to proceed with a left ring finger A1 rohan release. She would like to schedule as soon as possible. Tentatively we will schedule her for 01/27/21. Discussed that she will need medical clearance before surgery. We discussed the risks, benefits and alternatives of surgery reviewed including but not limited to bleeding, infection, nerve, artery and/or tissue damage, fracture, VTE, continued pain. Discussed the expected preop, intraop, and post op course. Consent was signed in the office today. She will need to stop Eliquis before surgery. Mentored her on the need to quit smoking and the benefits. She has a history of steroid injections in bilateral knees. She had an injury a few months ago to her right knee and wished today to proceed with a steroid injection for her pain. An injection was given in the right knee today in the office and tolerated well. She has 2 Supartz injections left and wishes to save those for another time. The patients questions were answered and she is in agreement with the plan. Plan Details Goals & Barriers: Goals Decrease pain Increase ROM Improve ability to perform house cleaning 12/29/20 1555<Electronically signed by Bernard Montes DO>Date Bernard Montes DO 12/29/20 1615<Electronically signed by Krissy CORONEL>I have re-examined the patient. There are no clinical changes since date of exam
[2021-01-27] MEDS: Lactated Ringers 1,000 ML 100 ML IV (07:38)
--- NOTE | 2021-01-27 10:37 | PCM.OPRPT ---
Report of Operation Date of Procedure: 01/27/21 Description of Surgical Findings:: Preoperative diagnosis; [left] [fourth] digit trigger finger Postoperative diagnosis; same Procedure: [left] [fourth] digit A1 rohan release Anesthesia: Local with MAC Tourniquet time; [10] minutes 250 mm Hg Complications: None Indication for procedure; This is a [60]-year-old [female] with symptoms consistent with [trigger finger]. Risks benefits and alternatives were reviewed including risks of bleeding infection nerve tendon tissue damage need for further surgery and continued pain and symptoms, hypersensitivity to scar/incision and recurrence. Procedure; The patient was met in the preoperative holding area the operative extremity was identified by both patient and physician and was marked the patient was met by anesthesia and brought back to the operating room and transferred to the operating table in the supine position. Aanesthesia was started. A well-padded tourniquet was placed on the operative upper extremity. The patient was prepped and draped in the usual sterile fashion. A timeout was called to ensure the proper patient procedure and extremity were being contemplated. 0.5 percent Marcaine was injected into the incisional area. Esmarch was used tourniquet was inflated. 15 blade scalpel was used to make a longitudinal incision directly over the A1 rohan was carried down through the subcutaneous tissue Joseph retractors placed radial and ulnar protecting the digital nerves and a Ragnell retractor was used at the apex of the incision under direct visualization a deep blade scalpel was used to release the A1 rohan. The wound was thoroughly irrigated and closed with 4-0 nylon vertical mattress edges. Dressing was applied in the form of Xeroform 4 x 4 web roll and an Justin wrap. Patient tolerated the procedure well was brought back to the PACU in stable condition.
[2021-01-27] MEDS: Cefazolin 2 GM in 0.9% Normal Saline 100 ML IV (10:42)
[2021-01-27] MEDS: Lidocaine 1% (30 ml sdv) 30 ML Vial (10:57)
--- NOTE | 2021-01-27 11:10 | PCM.DC ---
Discharge Instructions Diet Discharge Diet: No restrictions Dressing / Incision Additional Dressing/Incision Instructions:: Ice and elevate operative extremity next 72 hours. Keep dressing on clean and dry for 48 hours then may remove and allow warm soapy water to rinse over incision but do not submerge until sutures are out. Then apply bandaid over incision and change daily. encourage finger range of motion. Not lift more than 1/2 pound. Follow Up Care Please Follow Up With: Bernard Montes DO When: 2 weeks Test Results: Test results from this visit will be discussed in further detail at your follow-up appointment, if applicable. Discharge Plan Admission Attending Provider: Bernard Montes Primary Care Provider: Simone Isidro Instructions Patient Instructions: ED Chest Pain, Noncardiac Discharge Orders/Prescriptions Prescriptions: New tramadol 50 mg tablet 50 - 100 mg PO TID PRN (Reason: pain) Qty: 20 RF: 0 No Action esomeprazole magnesium 20 mg capsule,delayed release(DR/EC) 20 mg PO BID Qty: 180 RF: 1 montelukast 10 mg tablet 10 mg PO DAILY RF: 0 lisinopril 10 mg tablet 10 mg PO DAILY Qty: 90 RF: 3 rosuvastatin 5 mg tablet 5 mg PO .q3days RF: 0 gabapentin 400 mg capsule 300 mg PO TID RF: 0 citalopram [Celexa] 20 mg tablet 40 mg PO DAILY RF: 0 alendronate [Fosamax] 70 mg tablet 70 mg PO QWEEK RF: 0 Stiolto Respimat 2.5-2.5 mcg/actuation mist 2 puff inhalation DAILY RF: 0 Citracal Plus Bone Density 300-200-13.5 mg-unit-mg tablet 1 tablet PO DAILY RF: 0 valacyclovir 500 MG tablet 500 mg PO DAILY RF: 0 Cbd 50 ml PO/SL BID RF: 0 clobetasol 0.05 % ointment 1 applic TOPICAL QHS PRN (Reason: Itching) RF: 0 loratadine [Claritin] 10 mg Tablet 10 mg PO DAILY RF: 0 Referrals / Follow Up: Simone Isidro MD [Primary Care Provider] - Disposition Disposition (needs filled in before D/C Order can be placed): Home, Self Care
[2021-01-27] MEDS: Acetaminophen 325 MG Tablet 650 MG PO (12:00)
== END 2021-01-27 12:22 | disposition home or self-care (01) ==
LOC: SDC 06:46 → AC 06:47
PROVIDERS: PCP Family Medicine; Referring Provider Orthopaedic Surgery; Visit Provider Orthopaedic Surgery
PROC: (CPT 26055; principal; 2021-01-27 10:00)
DX: M65.342 Trigger finger, left ring finger (principal); J44.9 Chronic obstructive pulmonary disease, unspecified; K21.9 Gastro-esophageal reflux disease without esophagitis; E78.5 Hyperlipidemia, unspecified; M17.11 Unilateral primary osteoarthritis, right knee; F17.210 Nicotine dependence, cigarettes, uncomplicated; E66.01 Morbid (severe) obesity due to excess calories; G47.30 Sleep apnea, unspecified; Z68.41 Body mass index [BMI] 40.0-44.9, adult; Z86.73 Personal history of transient ischemic attack (TIA), and cerebral infarction without residual deficits; Z79.899 Other long term (current) drug therapy
CPT/HCPCS: 01810; 26055; J7120

== ENCOUNTER → 2021-02-19 14:59 | Outpatient (CLI) | payer MEDICAID, SELFPAY ==
[2021-02-11 14:46] VITALS: BMI 42.1
[2021-02-19 15:00] LABS: Bacteria 0 SEEN /hpf (None Seen); Mucous, Urine 0 SEEN /hpf (<or=2+); Red Blood Cells-Urine 0 SEEN /hpf (0-5); Squamous Epithelial Cells - UA 0 SEEN /hpf (5-10); White Blood Cells 0 SEEN /hpf (0-5)
[2021-02-19 18:05] LABS: Absolute Lymphocyte Count 1.91 X10^3/uL (0.83-4.51); Absolute Neutrophil Count 6.1 X10^3/uL (2.0-7.7); Basophil# 0.05 X10^3/uL; Basophil% 0.6 % (0-1); Eosinophil# 0.13 X10^3/uL; Eosinophils% 1.5 % (0-5); Hematocrit 40.3 % (37-47); Lymphocyte # 1.91 X10^3/ul (0.83-4.51); Lymphocyte % 21.6 % (19-41); Mean Corp Hgb Conc 32.3 g/dL (32-36); Mean Corpuscular Hgb 29.3 pg (27.0-32.0); Mean Corpuscular Volume 90.8 fL (81-99); Mean Platelet Vol. 9.2 fl (6.2-12.0); Monocyte# 0.64 X10^3/uL; Monocyte% 7.2 % (0-10); NRBC Flagged by Analyzer 0 % (0-5); Neutrophil # 6.05 X10^3/uL (2.7-7.7); Neutrophil % 68.4 % (47-70); Platelet Count 327 K/mm3 (150-450); RBC Distribution Width CV 13.4 % (11.6-14.6); Red Blood Count 4.44 M/mm3 (4.2-5.4); White Blood Count 8.8 K/mm3 (4.4-11.0)
[2021-02-19 18:21] LABS: Color, Urine Yellow (Yellow); Glucose, Dipstick Normal (Normal); Ketone-Dipstick Negative (Negative); Leukocyte Esterase-Dipstick Negative /ul (Negative); Nitrite-Dipstick Negative (Negative); Occult Blood-Urine Negative /ul (Negative); Protein-Dipstick Negative (Negative); Specific Gravity, Urine 1.005 (1.002-1.030); Urine Bilirubin Dipstick Negative (Negative); Urine Clarity Clear (Clear); Urine Urobilinogen Normal (Normal)
[2021-02-19 18:38] LABS: Vitamin D,25 Hydroxy 28.5 ng/mL
[2021-02-19 18:41] LABS: AST(SGOT) 17 U/L (15-37); Alanine Aminotransfer ALT/SGPT 29 U/L (13-56); Albumin, Serum 3.5 g/dL (3.2-5.0); Alkaline Phosphatase 121 U/L (45-117); Anion Gap 7 (5-15); BUN 10 mg/dL (7-18); BUN/Creat Ratio 14.3 RATIO (10-20); Calcium,Total 8.4 mg/dL (8.5-10.1); Chloride 105 mmol/L (98-107); Cholesterol 224 mg/dL (200); EST Glomerular Filtration Rate 90 mL/min (>60); Est Glom Filt Rate - Afr Amer 109 mL/min (>60); Globulin 3.6 g/dL (2.2-4.2); Glucose 100 mg/dL (74-106); High Density Lipoprotein 49 mg/dL; Potassium 3.8 mmol/L (3.5-5.1); Protein, Total 7.1 g/dL (6.4-8.2); Sodium Level 138 mmol/L (136-145); Triglycerides 111 mg/dL; Very Low Density Lipoprotein 22 mg/dL (5-40)
== END ==
PROVIDERS: PCP Family Medicine; Referring Provider Family Medicine; Visit Provider Family Medicine
DX: J44.9 Chronic obstructive pulmonary disease, unspecified (principal); M81.0 Age-related osteoporosis without current pathological fracture; E78.5 Hyperlipidemia, unspecified
CPT/HCPCS: 36415; 80053; 80061; 81001; 82306; 85025

== ENCOUNTER → 2021-05-06 16:57 | Outpatient (CLI) | payer MEDICAID, SELFPAY ==
[2021-05-06 17:38] LABS: Absolute Lymphocyte Count 1.87 X10^3/uL (0.83-4.51); Absolute Neutrophil Count 6.3 X10^3/uL (2.0-7.7); Basophil# 0.07 X10^3/uL; Basophil% 0.8 % (0-1); Eosinophil# 0.19 X10^3/uL; Eosinophils% 2.1 % (0-5); Hematocrit 40.3 % (37-47); Hemoglobin 13.1 g/dL (12.0-15.0); Lymphocyte # 1.87 X10^3/ul (0.83-4.51); Lymphocyte % 20.5 % (19-41); Mean Corp Hgb Conc 32.5 g/dL (32-36); Mean Corpuscular Hgb 29.8 pg (27.0-32.0); Mean Corpuscular Volume 91.6 fL (81-99); Mean Platelet Vol. 8.8 fl (6.2-12.0); Monocyte# 0.66 X10^3/uL; Monocyte% 7.2 % (0-10); NRBC Flagged by Analyzer 0 % (0-5); Neutrophil # 6.26 X10^3/uL (2.7-7.7); Neutrophil % 68.6 % (47-70); Platelet Count 322 K/mm3 (150-450); RBC Distribution Width CV 13.6 % (11.6-14.6); RBC Distribution Width SD 46.1 fl (35.1-43.9); White Blood Count 9.1 K/mm3 (4.4-11.0)
[2021-05-06 18:54] LABS: ALB/GLOB Ratio 1.1 RATIO (0.9-2.4); AST(SGOT) 17 U/L (15-37); Alanine Aminotransfer ALT/SGPT 25 U/L (13-56); Albumin, Serum 3.7 g/dL (3.2-5.0); Alkaline Phosphatase 126 U/L (45-117); Anion Gap 7 (5-15); BUN 10 mg/dL (7-18); BUN/Creat Ratio 14.2 RATIO (10-20); Calcium,Total 8.9 mg/dL (8.5-10.1); Chloride 103 mmol/L (98-107); EST Glomerular Filtration Rate 90 mL/min (>60); Est Glom Filt Rate - Afr Amer 109 mL/min (>60); Globulin 3.5 g/dL (2.2-4.2); Glucose 97 mg/dL (74-106); Potassium 4.6 mmol/L (3.5-5.1); Protein, Total 7.2 g/dL (6.4-8.2); Sodium Level 138 mmol/L (136-145)
== END ==
PROVIDERS: PCP Family Medicine; Referring Provider Family Medicine; Visit Provider Family Medicine
DX: R10.11 Right upper quadrant pain (principal)
CPT/HCPCS: 36415; 80053; 85025

== ENCOUNTER → 2021-05-08 09:24 | Outpatient (CLI) | payer MEDICAID, SELFPAY ==
--- NOTE | 2021-05-08 09:26 | US_ITS ---
STUDY: ABDOMINAL ULTRASOUND - RIGHT UPPER QUADRANT REASON FOR VISIT: Female, 60 years old RUQ PAIN TECHNIQUE: Ultrasound evaluation of the right upper quadrant was performed with real-time and static holloway-scale imaging. TECHNICAL QUALITY: Adequate. COMPARISON: None. FINDINGS: Liver: The liver measures 18.9 cm. There is increased echogenicity consistent with fatty infiltration. The bile ducts are within normal limits. There is hepatic color flow. The direction of portal flow is hepatopetal. There is a 2 cm x 2.1 signed by 1.9 cm septated cyst in the right lobe of the liver. Gallbladder: Normal distended gallbladder. The gallbladder wall measures 1.6 mm. There is a negative sonographic Ruby''s sign. There is no pericholecystic fluid. There are no gallstones. Common Bile Duct (C.B.D.): The common bile duct measures 3.7 mm. Pancreas: Normal size of the head, body and tail of the pancreas. There is increased echogenicity of the pancreas. There is no demonstrated pancreatic mass or cyst. Right Kidney: Normal size of the right kidney. The right kidney measures 11.5 cm x 5.6 cm x 5 cm. Normal renal cortex. The right cortex measures 1.2 cm. There is no demonstrated renal mass or cyst. There is no right hydronephrosis. US/Abdomen Limited IMPRESSION: Hepatomegaly. Fatty infiltration of the liver. 2 cm x 2.1 cm x 1.9 cm septated cyst in the right lobe. Electronically Signed: Klaus Bergman MD at 10:46 EDT , Service support ,
== END ==
PROVIDERS: PCP Family Medicine; Referring Provider Family Medicine; Visit Provider Family Medicine
DX: R10.11 Right upper quadrant pain (principal)
CPT/HCPCS: 76705

== ENCOUNTER → 2021-05-21 09:41 | Outpatient (CLI) | payer MEDICAID, SELFPAY ==
--- NOTE | 2021-05-28 09:32 | NM_ITS ---
CLINICAL: 60-year-old female with reported history of right upper quadrant abdominal pain. RADIONUCLIDE HEPATOBILIARY SCINTIGRAPHY COMPARISON: Abdominal ultrasound report 05/08/2021 FINDINGS: Following the intravenous administration of 5.4 mCi of 99m Tc Mebrofenin, hepatobiliary images reveal: 1. Relatively prompt and homogeneous radiopharmaceutical concentration is noted by a normal sized liver. No parenchymal defects are identified. 2. Gallbladder activity is identified at 15 minutes post radiopharmaceutical administration. 3. Small intestinal tract is observed at 45 minutes following tracer injection. 4. Washout of the radiopharmaceutical by the hepatic parenchyma appears qualitatively normal. Cholecystokinin (0.02 ug/kg) was administered intravenously over a 30-minute period. The post CCK gallbladder ejection fraction calculated at 20 minutes following Cholecystokinin administration was noted to be 93.0 % (normal greater than 35%). During 30 minutes of post CCK imaging, there is no scintigraphic evidence of reflux of the radiotracer into the common hepatic duct or refilling of the gallbladder. AR/Hepatobilliary Img w/Pharm Int IMPRESSION: 1. NORMAL 99m Tc Mebrofenin hepatobiliary imaging examination with Cholecystokinin. A. A gallbladder ejection fraction calculated to be greater than 35% following the administration of Cholecystokinin makes the probability of functional hepatobiliary disease (gallbladder and/or sphincter of Oddi dyskinesia) and/or organic hepatobiliary disease (chronic acalculous cholecystitis and/or cystic duct syndrome) to be low. (Preeti Engle et al, Journal of Nuclear Medicine 32:1695, 1991). Electronically Signed: Ant Edouard DO at 22:16 EST Tel , Service support ,
== END ==
PROVIDERS: PCP Family Medicine; Referring Provider Family Medicine; Visit Provider Family Medicine
DX: K82.8 Other specified diseases of gallbladder (principal)
CPT/HCPCS: 78227; A9537; J2805

== ENCOUNTER → 2021-06-24 15:33 | Outpatient (CLI) | payer MEDICAID, SELFPAY ==
[2021-06-24 15:35] LABS: Bacteria 0 SEEN /hpf (None Seen); Mucous, Urine 0 SEEN /hpf (<or=2+); Red Blood Cells-Urine 0 SEEN /hpf (0-5); Squamous Epithelial Cells - UA 0 SEEN /hpf (5-10); White Blood Cells 0 SEEN /hpf (0-5)
[2021-06-24 17:39] LABS: Absolute Lymphocyte Count 1.63 X10^3/uL (0.83-4.51); Absolute Neutrophil Count 6.2 X10^3/uL (2.0-7.7); Basophil# 0.05 X10^3/uL; Basophil% 0.6 % (0-1); Eosinophil# 0.14 X10^3/uL; Eosinophils% 1.6 % (0-5); Hematocrit 38.9 % (37-47); Lymphocyte # 1.63 X10^3/ul (0.83-4.51); Lymphocyte % 18.7 % (19-41); Mean Corp Hgb Conc 33.4 g/dL (32-36); Mean Corpuscular Volume 92.6 fL (81-99); Mean Platelet Vol. 9.2 fl (6.2-12.0); Monocyte# 0.63 X10^3/uL; Monocyte% 7.2 % (0-10); NRBC Flagged by Analyzer 0 % (0-5); Neutrophil % 71.2 % (47-70); Platelet Count 311 K/mm3 (150-450); RBC Distribution Width CV 13.4 % (11.6-14.6); RBC Distribution Width SD 45.4 fl (35.1-43.9); White Blood Count 8.7 K/mm3 (4.4-11.0)
[2021-06-24 17:43] LABS: Color, Urine Straw (Yellow); Glucose, Dipstick Normal (Normal); Ketone-Dipstick Negative (Negative); Leukocyte Esterase-Dipstick Negative /ul (Negative); Nitrite-Dipstick Negative (Negative); Occult Blood-Urine Negative /ul (Negative); Protein-Dipstick Negative (Negative); Specific Gravity, Urine 1.005 (1.002-1.030); Urine Bilirubin Dipstick Negative (Negative); Urine Clarity Clear (Clear); Urine Urobilinogen Normal (Normal)
[2021-06-24 17:53] LABS: ALB/GLOB Ratio 0.9 RATIO (0.9-2.4); AST(SGOT) 14 U/L (15-37); Alanine Aminotransfer ALT/SGPT 23 U/L (13-56); Albumin, Serum 3.6 g/dL (3.2-5.0); Alkaline Phosphatase 108 U/L (45-117); Anion Gap 7 (5-15); BUN 9 mg/dL (7-18); Calcium,Total 8.7 mg/dL (8.5-10.1); Chloride 105 mmol/L (98-107); Cholesterol 181 mg/dL (200); Creatinine, Serum 0.75 mg/dL (0.55-1.02); EST Glomerular Filtration Rate 83 mL/min (>60); Est Glom Filt Rate - Afr Amer 101 mL/min (>60); Globulin 3.8 g/dL (2.2-4.2); Glucose 128 mg/dL (74-106); High Density Lipoprotein 50 mg/dL; Potassium 4.1 mmol/L (3.5-5.1); Protein, Total 7.4 g/dL (6.4-8.2); Sodium Level 139 mmol/L (136-145); Triglycerides 136 mg/dL; Very Low Density Lipoprotein 27 mg/dL (5-40)
[2021-06-24 17:56] LABS: Vitamin D,25 Hydroxy 25.7 ng/mL
== END ==
PROVIDERS: PCP Family Medicine; Referring Provider Family Medicine; Visit Provider Family Medicine
DX: M81.0 Age-related osteoporosis without current pathological fracture (principal); E78.5 Hyperlipidemia, unspecified
CPT/HCPCS: 36415; 80053; 80061; 81001; 82306; 85025

== ENCOUNTER 2021-07-21 12:52 | Outpatient (CLI) | payer MEDICAID, SELFPAY ==
--- NOTE | 2021-07-21 12:56 | US_ITS ---
STUDY: THYROID ULTRASOUND REASON FOR EXAM: Female, 60 years old. Follow-up for thyroid nodules. TECHNIQUE: Ultrasound evaluation of the thyroid was performed with real-time and static holloway-scale imaging. COMPARISON: Comparison is made with prior examination dated 06/27/2020. FINDINGS: RIGHT LOBE: The right lobe of the thyroid gland measures 4.8 cm x 1.9 cm x 2.5 cm. There is a homogeneous echotexture. Stable appearance of the 2 cysts in the right lobe of the thyroid. The larger measures 1.4 cm x 1.2 cm x 1.9 cm. Stable 7 mm x 5 mm x 3 mm hypoechoic solid nodule. LEFT LOBE: The left lobe of the thyroid gland measures 5 cm x 1.5 cm x 2 cm. There is a homogeneous echotexture. Stable 6 mm x 4 mm x 4 mm cyst in the midpole. ISTHMUS: The isthmus measures 3 mm. The regional lymph nodes are normal. US/Thyroid IMPRESSION: Stable examination. Electronically Signed: Klaus Bergman MD at 15:00 EST , Service support ,
--- NOTE | 2021-07-21 16:00 | SP.MBSS_ITS ---
Modified Barium Swallow - Patient Information Study Date: 07/21/21 Study Time: 13:00 Direct Billable Minutes: 135 Total Minutes procedure & reportin Diagnosis: oropharyngeal dysphagia Referring Physician: Simone Isidro Reason for Referral: Patient reports globus sensation w/ report of frequent choking, although not necessarily w/ food/drink. Reports often choking on air, exacerbated when looking downward at her cell phone. Medical History: Abnormal colonoscopy, Acute asthma, Anxiety, Arthritis, Back pain, Bilateral headaches, Blood clot in vein, Carpal tunnel syndrome, Chronic cough, Chronic respiratory failure with hypoxia, COPD (chronic obstructive pulmonary disease) Stage 2, ALIYA on CPAP (continuous positive airway pressure) dependence, DVT (deep venous thrombosis), Easy bruising, Emphysema, Environmental allergies, Gastric reflux, GERD (gastroesophageal reflux disease), Hirsutism, History of cancer of vulva, History of edema, History of irregular heartbeat, History of stress test, Hx of colon cancer, stage I Hyperhidrosis, Hyperlipidemia, Hypertension, IBS (irritable bowel syndrome), Morbid obesity, Nicotine dependence, Nonobstructive atherosclerosis of coronary artery, Nonrheumatic mitral (valve) insufficiency, Pain in left lower leg, Radicular low back pain, Recurrent herpes simplex, Seasonal allergies, Segmental and somatic dysfunction of cervical region, Segmental and somatic dysfunction of lumbar region, Segmental and somatic dysfunction of pelvic region, Segmental and somatic dysfunction of thoracic region, Smoker, Thyroid disease, TIA (transient ischemic attack), Walker as ambulation aid, Wears glasses Surgical History: Bladder sling, bladder surgery, breast surgery, cardiac catheterization, carpal tunnel release, cataract surgery, cornea transplant, esophagogastroduodenoscopy (EGD) (07/05/18), herniorrhaphy (12/2019), left heart catheterization, lumpectomy of both breasts, nasal septoplasty, partial hysterectomy, right and left heart catheterization (09/22/20), appendectomy, hernia repair S/P colonoscopy (07/05/18) Previous Modified Barium Swallow Study: 05/28/2019 - mild oropharyngeal dysphagia - recommendation for regular textures/thin liquids, avoid sequential swallows of liquids, seated upright at 90 degrees during PO intake, remain upright for 30-60 minutes post meal (GERD precaution) Dentition: WNL Mental Status: WNL Respiratory Status: Oxygenating on 3L/M nasal cannula - Penetration-Aspiration Scale Penetration-Aspiration Scale: OBJECTIVE ASSESSMENT OF SWALLOW FUNCTION (QUANTITATIVE ? PER TRIAL): PENETRATION / ASPIRATION SCALE (CAMACHO): 1 = does not enter airway 2 = enters airway/above vocal folds/ejected 3 = enters airway/above vocal folds/not ejected 4 = enters airway/contacts vocal folds/ejected 5 = enters airway/contacts vocal folds/not ejected 6 = enters airway/below vocal folds/ejected 7 = enters airway/below vocal folds/not ejected despite effort 8 = enters airway/below vocal folds/no effort - Penetration-Aspiration Scale Score Thin Liquid via teaspoon Result: 1= does not enter airway Thin Liquid via teaspoon Trial 2 Result: 2= enter airway/above vocal folds/ejected Thin Liquid via small single sip from cup Result: 1= does not enter airway Thin Liquid via sequential sips from cup Result: 3= enters airways/above vocal folds/not ejected - penetration w/ the 3rd of 3 sips consumed sequentially Thin Liquid via single sip from straw Result: 1= does not enter airway Pudding Result: 1= does not enter airway Cookie Result: 1= does not enter airway Thin Liquid via small single sip from cup Trial 2 Result: 1= does not enter airway - Oral Phase Labial Seal: No Labial Escape Tongue Control During Bolus Hold: Cohesive bolus between tongue to palatal seal Bolus Preparation/Mastication: Timely and efficient chewing and mashing Bolus Transport/Lingual Motion: Brisk tongue motion Oral Residue: Trace residue lining oral structures - Pharyngeal Phase Initiation of Pharyngeal Swallow: Bolus head in valleculae Soft Palate Elevation: No bolus between soft palate and pharyngeal wall Laryngeal Elevation: Partial superior movement thyroid cart/partial apprx aryt- epig petiole Anterior Hyoid Excursion: Partial anterior movement Epiglottic Movement: Partial inversion Laryngeal Vestibule Closure at Height of Swallow: Incomplete; narrow column of air/contrast in laryngeal vestibule Pharyngeal Stripping Wave: Present - diminished Pharyngoesophageal Segment Opening: Complete distension and complete duration; no obstruction of flow Tongue Base Retraction: Trace column of contrast between tongue base & post. pharyngeal wall Pharyngeal Residue: Collection of residue within or on pharyngeal structures - Esophageal Phase Esophageal Clearance: Complete clearance - Diagnosis/Impression Diagnosis: mild oropharyngeal dysphagia Impression: This patient's swallow function is characterized by: * swallow onset w/ bolus head in the valleculae * trace-mild reduction in tongue base retraction w/ contrast lining the oral/pharyngeal tongue post-prandially * minimal superior laryngeal elevation and reduced anterior hyoid excursion contributing to incomplete epiglottic inversion and incomplete arytenoid to epiglottic petiole contact * prandial laryngeal vestibule penetration attributed to incomplete laryngeal vestibule closure/epiglottic inversion * penetration was exacerbated by large volume/sequential swallows w/ disruption in vojgmq-[id number]-[id number] pattern * incomplete epiglottic inversion and diminished pharyngeal stripping wave contributed to vallecular residue retention * right and left head turn/swallows were trialed under fluoro but were not effective to clear vallecular retention * esophageal phase was unremarkable Diet Recommended: * regular texture (IDDSI: 7) * thin liquid (IDDSI: 0) Compensatory Strategies Recommended: * small sips * one sip at a time, avoiding sequential swallows * double swallow at reasonable intervals * seated upright at 90 degrees during and for 30-60 minutes after intake (GERD precautions) Additional Speech Therapy Services Recommended: * for training and implementation of recommended compensatory strategies * instruction with oropharyngeal strengthening exercises to facilitate improved hyolaryngeal excursion/epiglottic inversion, laryngeal vestibule closure/ pressure, and pharyngeal motility Education: Images were reviewed w/ the patient following MBS conclusion Little to no appreciable change in swallow function compared to prior study 05/28/2019. Extended time spent providing education re: anatomy/physiology of swallow function, deficits identified, and rationale for recommended referral for outpatient dysphagia tx w/ speech therapy. - Status Active ST Patient: Active - Contact Information [facility] Speech Therapy:: Vale Robertson M.A., CCC-MAILHOUSE OPERATOR [place] [address] [place] [address] [phone] [email or web address]
== END 2021-07-21 23:59 | disposition short-term general hospital (02) ==
LOC: RAD 12:53
PROVIDERS: PCP Family Medicine; Referring Provider Family Medicine; Visit Provider Family Medicine
DX: R13.12 Dysphagia, oropharyngeal phase (principal)
CPT/HCPCS: 74230; 76536; 92611

== ENCOUNTER 2021-09-08 16:54 | Outpatient (CLI) | payer MEDICAID, SELFPAY ==
--- NOTE | 2021-09-08 17:04 | CT_ITS ---
STUDY: CT Abdomen And Pelvis W/ Contrast Injection 09/08/2021 7:45 PM REASON FOR EXAM: Female, 61 years old. ABDOMINAL PAIN VUVULAR CANCER AND APPY AND HERNIA TECHNIQUE: Transaxial images were obtained without oral contrast, and IV 100mL Isovue-370 intravenous contrast. Individualized dose optimization techniques were used for this CT. COMPARISON: 02.29.20 FINDINGS: The visualized lung bases are unremarkable. The visualized portions of the heart are within normal limits. Stable cyst of the liver. Normal gallbladder and extrahepatic biliary system. Normal spleen. Normal pancreas. Normal bilateral adrenal glands. No acute findings of the right kidney. No acute findings of the left kidney. Normal visualized stomach. Normal small intestine. Stool throughout the colon. There are surgical clips in the region of the appendix consistent with a prior appendectomy. There is moderate diffuse narrowing. Normal inferior vena cava. Subcentimeter mesenteric lymph nodes. Normal urinary bladder. There is absence of the uterus consistent with a prior hysterectomy. 40 x 28mm left ovarian cyst. This is 1 [place] unit. There is an umbilical hernia containing fat. There are diffuse degenerative changes of the visualized lumbar spine. IMPRESSION: (NOT LISTED IN ORDER OF SIGNIFICANCE) Hysterectomy changes. There are hypodensities in left ovary. These are consistent for cysts. No follow up required. Other findings as above. Electronically Signed: Rashawn Beck MD at 19:49 EST , CT/Abdomen/Pelvis W IV Cont ONLY
[2021-09-09 02:23] LABS: EGFR FINGERSTICK > 60.0000 mL/min (>60)
== END 2021-09-08 23:59 | disposition home or self-care (01) ==
LOC: CT 16:58
PROVIDERS: PCP Family Medicine; Referring Provider Surgery; Visit Provider Surgery
DX: R10.9 Unspecified abdominal pain (principal); R14.0 Abdominal distension (gaseous)
CPT/HCPCS: 74177; Q9967

== ENCOUNTER 2021-09-30 14:27 | Outpatient (CLI) | payer MEDICAID, SELFPAY ==
[2021-09-30 17:53] LABS: Absolute Lymphocyte Count 1.91 X10^3/uL (0.83-4.51); Basophil# 0.06 X10^3/uL; Basophil% 0.7 % (0-1); Eosinophils% 2.3 % (0-5); Hematocrit 37.5 % (37-47); Hemoglobin 12.2 g/dL (12.0-15.0); Lymphocyte # 1.91 X10^3/ul (0.83-4.51); Lymphocyte % 21.6 % (19-41); Mean Corp Hgb Conc 32.5 g/dL (32-36); Mean Corpuscular Hgb 30.7 pg (27.0-32.0); Mean Corpuscular Volume 94.2 fL (81-99); Monocyte% 6.8 % (0-10); NRBC Flagged by Analyzer 0 % (0-5); Neutrophil # 6.01 X10^3/uL (2.7-7.7); Platelet Count 303 K/mm3 (150-450); RBC Distribution Width CV 13.1 % (11.6-14.6); RBC Distribution Width SD 45.3 fl (35.1-43.9); Red Blood Count 3.98 M/mm3 (4.2-5.4); White Blood Count 8.8 K/mm3 (4.4-11.0)
[2021-09-30 18:15] LABS: AST(SGOT) 15 U/L (15-37); Alanine Aminotransfer ALT/SGPT 24 U/L (13-56); Albumin, Serum 3.6 g/dL (3.2-5.0); Alkaline Phosphatase 112 U/L (45-117); Anion Gap 4 (5-15); BUN 8 mg/dL (7-18); Calcium,Total 8.7 mg/dL (8.5-10.1); Chloride 104 mmol/L (98-107); Cholesterol 165 mg/dL (200); Creatinine, Serum 0.73 mg/dL (0.55-1.02); EST Glomerular Filtration Rate 86 mL/min (>60); Est Glom Filt Rate - Afr Amer 104 mL/min (>60); Globulin 3.7 g/dL (2.2-4.2); Glucose 116 mg/dL (74-106); High Density Lipoprotein 46 mg/dL; Potassium 4.1 mmol/L (3.5-5.1); Protein, Total 7.3 g/dL (6.4-8.2); Sodium Level 136 mmol/L (136-145); Triglycerides 132 mg/dL; Very Low Density Lipoprotein 26 mg/dL (5-40)
[2021-10-01 09:48] LABS: Hemoglobin A1c 5.9 % (3.8-5.6)
== END 2021-09-30 23:59 | disposition home or self-care (01) ==
LOC: MFPLAB 14:31
PROVIDERS: PCP Family Medicine; Referring Provider Family Medicine; Visit Provider Family Medicine
DX: R73.09 Other abnormal glucose (principal); E78.5 Hyperlipidemia, unspecified; E55.9 Vitamin D deficiency, unspecified
CPT/HCPCS: 36415; 80053; 80061; 82306; 83036; 85025

== ENCOUNTER 2021-10-28 11:28 | Day surgery (SDC) | payer MEDICAID, SELFPAY ==
[2021-10-28] VITALS (12 sets, daily range): BP systolic 117–151; BP diastolic 57–123; PULSE 94–117; RESP 18–22; TEMP 36.4–37; O2SAT 85–94
--- NOTE | 2021-10-28 | HERN_PTH ---
PATIENT: DEVON BARAHONA LOC: [facility] U#:[id number] AGE/SX: 61/F ROOM: RE10/28/[address]: Dr. Mirela Pugh MD : 1960 BED: DIS: 10/28/2021 SPEC #: [id number] RECD: 10/28/21 15:28 STATUS: MARCIA RERalph #: [id number] ANGELINA: 10/28/21 00:[address]: Mirela Pugh DEPT: SURGICAL PATHOLOGY RECD BY: Diaz Romo ENTERED: 10/29/21 07:50 SP TYPE: Hernia OTHR DR: Dr. Simone Isidro MD Tissues: HERNIA Procedures: Surgery Specimen Level III HEADER OPERATION: Laparoscopy and open incisional hernia repair with mesh PRE-OP DIAGNOSIS: Recurrent incisional hernia TISSUE SUBMITTED: Incisional hernia and contents, mesh MICROSCOPIC DIAGNOSIS Incisional hernia and contents, mesh: A piece of fibroadipose tissue with mesh with chronic inflammation and foreign body giant cell reaction. MAXIMO:juju 10/30/2021 MICROSCOPIC DESCRIPTION Slides are reviewed. GROSS DESCRIPTION Received in fixative is one container labeled with the patient's name and designated incisional hernia and contents, mesh. The specimen consists of a round piece of mesh with attached soft tissue measuring 6 x 5.5 cm and up to 0.3 cm in thickness. Associate Professor [employer] sections are submitted in one cassette. / MAXIMO:juju 10/29/2021 TC:5 CPT: 39572
[2021-10-28 12:13] LABS: International Normalized Ratio 0.9; Prothrombin Time (Protime)PT. 12.3 SECONDS (11.7-14.9)
[2021-10-28 12:14] LABS: Partial Thromboplast Time 29.6 Seconds (24.1-36.2)
--- NOTE | 2021-10-28 12:38 | PCM.HP.STD ---
HPI - General HPI Narrative DEVON BARAHONA, is a 61 F who presents for hybrid procedure of open/laparoscopic recurrent incisional hernia and umbilical hernia repair. Patient states she has been having some infraumbilical pain does not always happen with movements but can happen as she started to get up. Discussed with patient and did review her CT abdomen pelvis with her previously that her previous incisional hernia repair does show some bulging of the mesh at that site and she does have a small umbilical hernia. Discussed that the umbilical hernia may be causing some of her discomfort however I cannot guarantee that this repair will resolve the lower umbilical pain; however no other obvious cause was seen on CAT scan. Patient did get medical and pulmonary clearance from her respective doctors. from office appt 09/24/21 HPI: DEVON BARAHONA, is a 61 F who presents to the office today for follow-up from CT abdomen pelvis that was done due to some abdominal pain. Patient did previously have a laparoscopic appendectomy and had an incisional hernia that which was repaired with mesh at a later date. Patient states she has had some pain, right below her umbilicus when she leans against the counter?this has been going on for several months. CT abdomen pelvis did show a bulging at the previous incisional hernia likely including the mesh. Patient does have a small umbilical hernia which is only fat-containing. Patient can be on 3 to 5 L of oxygen intermittently as needed. She does also state that with any antibiotic she does need Diflucan for yeast infection usually 2 pills of it. Patient does see Dr. Krause for pulmonology. ON LICENSE OF [facility] Medical History (Updated 10/21/21 @ 15:28 by Jyoti Paul) Abnormal colonoscopy Acute asthma Anxiety Anxiety Arthritis Back pain Bilateral headaches Blood clot in vein Cardiology follow-up encounter Carpal tunnel syndrome Chronic cough Chronic respiratory failure with hypoxia COPD (chronic obstructive pulmonary disease) CPAP (continuous positive airway pressure) dependence DVT (deep venous thrombosis) Easy bruising Emphysema, unspecified Environmental allergies Gastric reflux GERD (gastroesophageal reflux disease) Hirsutism History of cancer of vulva History of edema History of irregular heartbeat History of stress test Hx of colon cancer, stage I Hyperhidrosis Hyperlipidemia Hypertension IBS (irritable bowel syndrome) Morbid obesity Nicotine dependence Nonobstructive atherosclerosis of coronary artery Nonrheumatic mitral (valve) insufficiency Normal echocardiogram Obstructive sleep apnea syndrome On home oxygen therapy Pain in left lower leg Radicular low back pain Recurrent herpes simplex Seasonal allergies Segmental and somatic dysfunction of cervical region Segmental and somatic dysfunction of lumbar region Segmental and somatic dysfunction of pelvic region Segmental and somatic dysfunction of thoracic region Sleep apnea Smoker Stage 2 moderate COPD by GOLD classification Thyroid disease TIA (transient ischemic attack) Walker as ambulation aid Wears glasses Home Medications esomeprazole magnesium 20 mg capsule,delayed release 20 mg PO BID #180 cap 10/03/18 [Rx Last Taken 10/28/21 09:30] valacyclovir 500 mg PO DAILY 01/03/20 [History Last Taken 01/02/20] montelukast 10 mg tablet 10 mg PO DAILY 02/27/20 [History Last Taken 09/22/20] citalopram 20 mg tablet 40 mg PO DAILY tab 06/30/20 [History Last Taken 09/22/20] gabapentin 400 mg capsule 300 mg PO TID 07/29/20 [History Last Taken 01/27/21 05:15] alendronate 70 mg tablet 70 mg PO QWEEK 09/09/20 [History Last Taken Unknown] calcium carb,cit 300 mg-D3 200 unit-min no.34-genistein 13.5 mg tablet 1 tablet PO DAILY 10/30/20 [History Last Taken Unknown] Cbd 50 ml PO/SL QHS 01/20/21 [History Last Taken Unknown] clobetasol 1 applic TOPICAL QHS PRN 01/20/21 [History Last Taken Unknown] loratadine [Claritin] 10 mg PO DAILY 01/20/21 [History Last Taken Unknown] tiotropium 2.5 mcg-olodaterol 2.5 mcg/actuation mist for inhalation 2 inh INHALATION DAILY #4 g 04/21/21 [Rx Last Taken Unknown] ipratropium 0.5 mg-albuterol 3 mg (2.5 mg base)/3 mL nebulization soln 3 ml INHALATION Q4H PRN #180 ml 08/10/21 [Rx Last Taken Unknown] famotidine 20 mg PO BID 10/21/21 [History Last Taken 10/28/21 09:30] lisinopril 10 mg PO QHS 10/21/21 [History Last Taken Unknown] prazosin 2 mg PO QHS 10/21/21 [History Last Taken Unknown] rosuvastatin [Crestor] 20 mg PO DAILY 10/21/21 [History Last Taken Unknown] Allergy/AdvReac Type Severity Reaction Status Date / Time aloe vera Allergy Other Verified 10/28/21 11:52 doxycycline Allergy Other Verified 10/28/21 11:52 hydrocodone bitartrate Allergy Upset Verified 10/28/21 11:52 [From Vicodin] Stomach oxycodone HCl [From Percocet] Allergy Other Verified 10/28/21 11:52 propoxyphene HCl Allergy Vomiting Verified 10/28/21 11:52 [From Darvon] levofloxacin [From Levaquin] AdvReac Diarrhea Verified 10/28/21 11:52 Penicillins AdvReac yeast Verified 10/28/21 11:52 infection Family History Brother Myocardial infarction, Onset Age: 63 Other Alcoholism Alzheimer disease Anxiety Arthritis Asthma Breast cancer Cervical cancer Colon cancer Depression Heart disease High cholesterol Lung cancer Suicidal behavior Surgical History (Updated 10/21/21 @ 15:28 by Jyoti Paul) history of bladder sling History of bladder surgery History of breast surgery History of cardiac catheterization History of carpal tunnel release History of cataract surgery History of cornea transplant History of esophagogastroduodenoscopy (EGD) (07/05/18) History of herniorrhaphy (12/2019) History of left heart catheterization History of lumpectomy of both breasts History of nasal septoplasty History of partial hysterectomy History of right and left heart catheterization (09/22/20) Hx of appendectomy Hx of hand surgery Hx of hernia repair S/P colonoscopy (07/05/18) Social History Smoking Status: Current every day smoker tobacco type: cigarettes quit status: not considering quitting alcohol intake: never substance use type: does not use caffeine: Yes what type of physical activity do you participate in: none seatbelt use: always do you feel safe at home: Yes additional social history: - Joel Physical Exam Const alert, oriented x3 and no apparent distress HEENT normocephalic and head/scalp atraumatic Resp normal respiratory effort Cardio regular rate GI soft to palpation; Negative for non-distended Palpation: tender other (Infraumbilical unable to obviously detect umbilical or incisional hernia on exam due to body habitus); Negative for guarding Extremity no clubbing, cyanosis or edema Neuro CN's II-XII intact bilaterally Psych mental status grossly normal Results Lab / Micro Data Labs: Laboratory Results - last 24 hr 10/28/21 11:50: PT 12.3, INR 0.9, APTT 29.6 Assessment & Plan Assessment/Plan (1) Recurrent incisional hernia: (2) Umbilical hernia without obstruction and without gangrene: (3) Abdominal pain: (4) Stage 2 moderate COPD by GOLD classification: PLAN: We will plan for a hybrid procedure of open/laparoscopic recurrent incisional hernia repair with mesh. Also be removing the previous mesh. Risks including but not limited to seroma/hematoma, infection?possibly needing mesh removal, unable to resolve her lower umbilical pain, and anesthesia were all discussed with patient. Patient no further question this time. Patient is continued on her 3 L by nasal cannula for COPD. Mirela Pugh M.D. Pager: [phone] [facility] [address] [place] [address], [address] [place] [address] Office: [phone] Procedure Criteria Type of Procedure Procedure Type: Elective Elective Risks - COVID COVID Risk Discussion: The surgeon/proceduralist and patient have discussed in detail the risk of exposure to and/or potential harm posed by the COVID-19 virus with having a surgery/procedure at this time versus the risk of delaying the surgery/procedure. It is not possible to know either the risk of delaying the surgery or procedure or chance of getting an infection with perfect accuracy, but a joint decision was made between the patient and the surgeon/proceduralist to proceed at this time with the scheduled surgery/procedure as indicated on the consent form.
[2021-10-28] MEDS: Lactated Ringers 1,000 ML 15 ML IV (13:03)
[2021-10-28] MEDS: Clindamycin 900 MG/50 ML BAG 75 MG IV (13:03)
--- NOTE | 2021-10-28 14:40 | OP.PCM_ITS ---
Report of Operation Date of Procedure: 10/28/21 Pre-Operative Diagnosis: Recurrent incisional hernia and umbilical hernia Post-Operative Diagnosis: recurrent incisional hernia and incisional hernia Surgery/Procedure Performed:: Open and laparoscopic repair of recurrent incis ional hernia and incisional hernia with mesh, removal of previous mesh Surgeon: Mirela Pugh Type of Anesthesia: General/Supplemental Anesthesiologist: Mahesh Krishna Special Medications: Clindamycin 900 mg IV x1 Specimen's removed: 1. Previous mesh Estimated Blood Loss (mL): <10 cc Description of Procedure: Patient was brought to the operating placed plan operating table. Timeout was completed verifying correct patient procedure, site, positioning, special, prior beginning procedure. General anesthesia was induced. Patient abdomen is prepped draped in usual fashion with chlorhexidine. The previous supra umbilical incision was reincised with 15 blade scalpel. This was deepened to the fascia with electrocautery. The previous mesh was excised and sent to pathology. The supraumbilical hernia fascia was cleared. 0 Prolene [id number] sutures x2 was used to close the fascia. The incisional hernia at the umbilicus was also cleared of any peritoneal fat. The ventralight ST mesh with Echo PS (lot [id number]) 11.4 cm diameter was placed through the open incision. The 5 mm trochars placed in the left lower quadrant under direct visualization. Abdomen was insufflated to 10 mmHg. Patient tolerated insufflation well. Laparoscope was placed. Additional 5 mm trochars were placed in the right lower and right upper quadrant under direct visualization. The positioning system was hooked up to the mesh and the balloon attached to mesh was insufflation- mesh laid flat against abdominal wall and covered both the supraumbilical incisional hernia as well as umbilical incisional hernia. Secure strap was used to secure the mesh around the edges. The positioning system was completely removed from the mesh and abdomen via the 5 mm trocar. The middle part of the mesh was also secured with secure strap tacks. Local anesthesia of 0.5% Marcaine total of 30 cc used throughout the case. The supraumbilical wound was closed with subdermal interrupted sutures of 3-0 Vicryl. Skin was closed with running 4-0 Monocryl sutures. Steri-Strips were also placed and OpSite's. Pressure dressing was placed as well as down the binder was placed. Patient was extubated. Patient tolerated procedure well and sent to the postanesthesia care unit in stable condition. Grafts/Implants Used: ventralight ST mesh with Echo PS (lot [id number]) 11.4 cm diameter Complications None
--- NOTE | 2021-10-28 14:46 | EX.PCM.DISCH ---
Discharge Instructions Diet Discharge Diet: Light diet - advance as tolerated Activity May shower in (days): 2 (Okay to tape off with a Ziploc bag to shower or lower shower and upper sponge bath--before the 2 days) Lifting Restrictions: no lifting >20 lbs x 2 wks, no strenuous exercise for 4 wks Additional Activity Instructions:: - Dressing / Incision Call your doctor if your incision/area has: Continuous Slow Oozing, Sudden Increased Bleeding, Increased Pain/ Swelling, Increased Redness, Foul Smelling Discharge and Swelling at the incision site Call your doctor if you observe: Fever of 101 or Higher Remove Dressing in: 2 days (Keep pressure sure dressing in place for 2 days. Then continue abdominal binder even at night for the first 1 to 2 weeks-to help prevent seroma) Cleanse incision/area with: Keep Dressing Clean & Dry Additional Dressing/Incision Instructions:: Steri-Strips will fall off in 7 to 10 days, if they do not fall off okay to remove after 10 days. Follow Up Care Please Follow Up With: Mirela Pugh MD When: Call the office for a follow-up appointment 2 weeks; after 5 PM and on the weekends call [phone] with any concerns. Test Results: Test results from this visit will be discussed in further detail at your follow-up appointment, if applicable. Discharge Plan Admission Attending Provider: Mirela Pugh Primary Care Provider: Simone Isidro Discharge Orders/Prescriptions Prescriptions: New fluconazole [Diflucan] 150 mg tablet 150 mg PO DAILY Qty: 2 RF: 0 tramadol 50 mg tablet 50 - 100 mg PO Q6H PRN (Reason: pain) 5 Days Qty: 28 RF: 0 Continued esomeprazole magnesium 20 mg capsule,delayed release(DR/EC) 20 mg PO BID Qty: 180 RF: 1 montelukast 10 mg tablet 10 mg PO DAILY RF: 0 gabapentin 400 mg capsule 300 mg PO TID RF: 0 citalopram [Celexa] 20 mg tablet 40 mg PO DAILY RF: 0 alendronate [Fosamax] 70 mg tablet 70 mg PO QWEEK RF: 0 Citracal Plus Bone Density 300-200-13.5 mg-unit-mg tablet 1 tablet PO DAILY RF: 0 Stiolto Respimat 2.5-2.5 mcg/actuation mist 2 inh inhalation DAILY Qty: 4 RF: 2 ipratropium-albuterol 0.5 mg-3 mg(2.5 mg base)/3 mL solution for nebulization 3 ml inhalation Q4H PRN (Reason: shortness of breath or wheezing) Qty: 180 RF: 3 valacyclovir 500 MG tablet 500 mg PO DAILY RF: 0 Cbd 50 ml PO/SL QHS RF: 0 clobetasol 0.05 % ointment 1 applic TOPICAL QHS PRN (Reason: Itching) RF: 0 loratadine [Claritin] 10 mg Tablet 10 mg PO DAILY RF: 0 prazosin 2 mg Capsule 2 mg PO QHS RF: 0 rosuvastatin [Crestor] 20 mg Tablet 20 mg PO DAILY RF: 0 famotidine 20 mg tablet 20 mg PO BID RF: 0 lisinopril 10 mg tablet 10 mg PO QHS RF: 0 Referrals / Follow Up: Simone Isidro MD [Primary Care Provider] - Disposition Disposition (needs filled in before D/C Order can be placed): Home, Self Care
[2021-10-28] MEDS: Bupivacaine Mpf 0.5% 30 ML VIAL (14:50)
[2021-10-28] MEDS: Sugammadex Sodium 200 MG/2 ML VIAL IV (14:59)
[2021-10-28] MEDS: Albuterol 2.5 MG/3 ML VIAL.NEB. INHALATION (16:28)
[2021-10-28] MEDS: traMADol 50 MG Tablet PO (16:47)
--- NOTE | 2021-10-28 17:00 | SUR.PHASEI ---
BREATHING IMPROVED AFTER ALBUTEROL AEROSOL Tx AND INCENTIVE SPIROMETRY. PATIENT REPORTS SHE WEARS O2 AT 5 L/min NEARLY ALL THE TIME AT HOME, ESPECIALLY WITH ANY ACTIVITY OR EXERTION, STATING DR SAHNI [ASSIGNMENT OFFICER], KNOWS I DO THAT. WILL NOTIFY DR CADENA, ANESTHESIA.
--- NOTE | 2021-10-28 18:50 | SUR.PHASEII ---
Patient has only been able to dribble urine. Only had a little over a Liter of IVF which was positional and then fell out at 1815. Patient has been drinking multiple glasses of water, jello, and 2 cups coffee. After second attempt to void, bladder scan for 162 ml, reports no urge to void. Dr Pugh updated, states november d/c patient home but to call MD if unable to void more than dribbles by midnight tonight. Patient verbalizes understanding.
== END 2021-10-28 23:59 | disposition home or self-care (01) ==
LOC: SDC 11:34 → AC 11:37
PROVIDERS: Anesthesiology; PCP Family Medicine; Visit Provider Surgery
PROC: 0WQF4ZZ Repair Abdominal Wall, Percutaneous Endoscopic Approach (ICD-10-PCS; CPT 49565; principal; 2021-10-28 12:40)
DX: K43.2 Incisional hernia without obstruction or gangrene (principal); J43.9 Emphysema, unspecified; I27.20 Pulmonary hypertension, unspecified; J96.11 Chronic respiratory failure with hypoxia; E66.01 Morbid (severe) obesity due to excess calories; Z68.42 Body mass index [BMI] 45.0-49.9, adult; I25.10 Atherosclerotic heart disease of native coronary artery without angina pectoris; E78.5 Hyperlipidemia, unspecified; K42.9 Umbilical hernia without obstruction or gangrene; I10 Essential (primary) hypertension; M19.90 Unspecified osteoarthritis, unspecified site; K21.9 Gastro-esophageal reflux disease without esophagitis; G47.33 Obstructive sleep apnea (adult) (pediatric); Z86.718 Personal history of other venous thrombosis and embolism; M99.01 Segmental and somatic dysfunction of cervical region; M99.02 Segmental and somatic dysfunction of thoracic region; M99.03 Segmental and somatic dysfunction of lumbar region; M99.05 Segmental and somatic dysfunction of pelvic region; Z79.899 Other long term (current) drug therapy; F41.9 Anxiety disorder, unspecified; K58.9 Irritable bowel syndrome, unspecified; Z86.79 Personal history of other diseases of the circulatory system; F17.210 Nicotine dependence, cigarettes, uncomplicated; R07.9 Chest pain, unspecified; R14.0 Abdominal distension (gaseous); R10.9 Unspecified abdominal pain
CPT/HCPCS: 49565; 49568; 00832; 88302; 85610; 85730; 88304; 94640; J7120; J2405

== ENCOUNTER → 2021-11-24 | Outpatient (CLI) | payer MEDICAID, SELFPAY ==
--- NOTE | 2021-11-24 14:48 | CT_ITS ---
EXAM: CT CHEST, LUNG CANCER SCREENING WITHOUT INTRAVENOUS CONTRAST CLINICAL INDICATION: smoker and gt; 30 pack years TECHNIQUE: Helically acquired images were obtained of the chest without intravenous contrast using low dose (LDCT) lung cancer screening protocol. This CT exam was performed using one or more of the following dose reduction techniques: automated exposure control, adjustment of the mA and/or kV according to patient size, and/or use of iterative reconstruction technique. This report was created using [employer] report generation technology. COMPARISON: None. FINDINGS: LUNGS AND PLEURAL SPACES: Diffuse centrilobular pulmonary emphysema. Patchy reticulonodular densities are noted to involve predominantly both upper lobes of the lung possibly representing acute or chronic inflammatory process. Largest nodular components measuring 8 to 9 mm in diameter. No mass. No pleural effusion or thickening. No pneumothorax. HEART: Unremarkable. Heart size is normal. No pericardial effusion. No significant coronary artery calcifications. MEDIASTINUM: Unremarkable. No mediastinal or hilar adenopathy. Esophagus is unremarkable. No hiatal hernia. THYROID: Unremarkable. No thyroid lesions. BONES/JOINTS: Unremarkable. No suspicious lytic or blastic abnormality. VASCULATURE: Unremarkable. Thoracic aorta is non-dilated. LYMPH NODES: Unremarkable. No enlarged lymph nodes. CT/Low Dose CT Lung Screening IMPRESSION: 1. Bilateral reticular nodular densities of both upper lobes of the lung which may represent inflammatory process. 2. ACR Lung CT Screening Reporting T Data System (Lung-RADS) score: 3S - Probably Benign. Additional clinically significant or potentially clinically significant findings are described. Recommend low-dose CT (LDCT) in 6 months. Electronically Signed: Evan Cardenas MD at 16:47 EDT ,
== END | disposition home or self-care (01) ==
LOC: CT 14:46
PROVIDERS: PCP Family Medicine; Referring Provider Nurse Practitioner Acute Care; Visit Provider Nurse Practitioner Acute Care
DX: F17.210 Nicotine dependence, cigarettes, uncomplicated (principal)
CPT/HCPCS: 71271

== ENCOUNTER → 2022-01-12 | Outpatient (CLI) | payer MEDICAID, SELFPAY ==
[2022-01-12 18:10] LABS: Absolute Lymphocyte Count 1.89 X10^3/uL (0.83-4.51); Absolute Neutrophil Count 7.2 X10^3/uL (2.0-7.7); Basophil# 0.03 X10^3/uL; Basophil% 0.3 % (0-1); Eosinophil# 0.14 X10^3/uL; Eosinophils% 1.4 % (0-5); Hematocrit 33.9 % (37-47); Lymphocyte # 1.89 X10^3/ul (0.83-4.51); Mean Corp Hgb Conc 32.4 g/dL (32-36); Mean Corpuscular Hgb 28.4 pg (27.0-32.0); Mean Corpuscular Volume 87.4 fL (81-99); Mean Platelet Vol. 9.1 fl (6.2-12.0); Monocyte# 0.71 X10^3/uL; Monocyte% 7.1 % (0-10); NRBC Flagged by Analyzer 0 % (0-5); Neutrophil # 7.16 X10^3/uL (2.7-7.7); Neutrophil % 71.8 % (47-70); Platelet Count 360 K/mm3 (150-450); RBC Distribution Width CV 13.8 % (11.6-14.6); RBC Distribution Width SD 43.8 fl (35.1-43.9); Red Blood Count 3.88 M/mm3 (4.2-5.4)
[2022-01-12 18:46] LABS: ALB/GLOB Ratio 0.8 RATIO (0.9-2.4); AST(SGOT) 12 U/L (15-37); Alanine Aminotransfer ALT/SGPT 16 U/L (13-56); Albumin, Serum 3.3 g/dL (3.2-5.0); Alkaline Phosphatase 123 U/L (45-117); Anion Gap 8 (5-15); BUN 7 mg/dL (7-18); BUN/Creat Ratio 10.7 RATIO (10-20); Calcium,Total 8.7 mg/dL (8.5-10.1); Chloride 102 mmol/L (98-107); Cholesterol 143 mg/dL (200); Creatinine, Serum 0.66 mg/dL (0.55-1.02); EST Glomerular Filtration Rate 97 mL/min (>60); Est Glom Filt Rate - Afr Amer 118 mL/min (>60); Glucose 103 mg/dL (74-106); High Density Lipoprotein 42 mg/dL; Potassium 3.7 mmol/L (3.5-5.1); Protein, Total 7.3 g/dL (6.4-8.2); Sodium Level 136 mmol/L (136-145); Triglycerides 103 mg/dL; Very Low Density Lipoprotein 21 mg/dL (5-40)
[2022-01-12 19:01] LABS: Vitamin D,25 Hydroxy 45.6 ng/mL
[2022-01-13 14:56] LABS: Ferritin 27 ng/mL (8-252); Iron 37 ug/dL (50-170); Iron Binding Capacity,Total 379 ug/dL (250-450)
[2022-01-13 14:58] LABS: Vitamin B12 224 pg/mL (211-911)
[2022-01-13 15:02] LABS: Hemoglobin A1c 5.6 % (3.8-5.6)
== END | disposition home or self-care (01) ==
LOC: MFPLAB 16:30
PROVIDERS: PCP Family Medicine; Visit Provider Family Medicine
DX: R73.09 Other abnormal glucose (principal); D64.9 Anemia, unspecified; E55.9 Vitamin D deficiency, unspecified; E78.5 Hyperlipidemia, unspecified
CPT/HCPCS: 36415; 80053; 80061; 82306; 82607; 82728; 83036; 83540; 83550; 85025

== ENCOUNTER → 2022-02-05 | Outpatient (CLI) | payer MEDICAID, SELFPAY ==
--- NOTE | 2022-02-05 11:54 | RAD_ITS ---
EXAM: XR CHEST, 2 VIEWS CLINICAL INDICATION: cough, exacerbation TECHNIQUE: Frontal and lateral views of the chest. This report was created using [employer] report generation technology. COMPARISON: 01/05/2020 FINDINGS: LUNGS AND PLEURAL SPACES: There are interstitial opacities seen which may represent scar or edema. There is no focal consolidation. No pneumothorax. No effusion. HEART: Unremarkable. Cardiac silhouette not enlarged. MEDIASTINUM: Central airways and mediastinal contour are unremarkable. BONES/JOINTS: Unremarkable. SOFT TISSUES: Unremarkable. RAD/Chest PA and Lateral IMPRESSION: Interstitial opacities which may represent scar or edema. There is no focal consolidation. Electronically Signed: Rah Houston MD at 3:06 EDT ,
== END | disposition home or self-care (01) ==
LOC: MTRAD 11:54
PROVIDERS: PCP Family Medicine; Referring Provider Internal Medicine Critical Care Medicine; Visit Provider Internal Medicine Critical Care Medicine
DX: J44.9 Chronic obstructive pulmonary disease, unspecified (principal)
CPT/HCPCS: 71046

== ENCOUNTER → 2022-02-08 | Outpatient (CLI) | payer MEDICAID, SELFPAY ==
[2022-02-08 18:08] LABS: Hemoglobin A1c 5.9 % (3.8-5.6)
== END | disposition home or self-care (01) ==
LOC: LAB 16:17
PROVIDERS: PCP Family Medicine; Referring Provider Family Medicine; Visit Provider Family Medicine
DX: R73.09 Other abnormal glucose (principal); R05.9 Cough, unspecified
CPT/HCPCS: 36415; 83036; 87070; 87077; 87186; 87205

== ENCOUNTER → 2022-02-12 | Outpatient (CLI) | payer MEDICAID, SELFPAY ==
[2022-02-12 12:49] LABS: Mucous, Urine 0 SEEN /hpf (<or=2+); Red Blood Cells-Urine 0 SEEN /hpf (0-5); Squamous Epithelial Cells - UA 0 SEEN /hpf (5-10); White Blood Cells 0 SEEN /hpf (0-5)
[2022-02-12 15:12] LABS: Absolute Lymphocyte Count 4.17 X10^3/uL (0.83-4.51); Absolute Neutrophil Count 12.3 X10^3/uL (2.0-7.7); Basophil% 0.5 % (0-1); Eosinophil# 0.19 X10^3/uL; Hematocrit 39.2 % (37-47); Hemoglobin 12.7 g/dL (12.0-15.0); Lymphocyte # 4.17 X10^3/ul (0.83-4.51); Lymphocyte % 22.8 % (19-41); Mean Corp Hgb Conc 32.4 g/dL (32-36); Mean Corpuscular Hgb 28.3 pg (27.0-32.0); Mean Corpuscular Volume 87.5 fL (81-99); Mean Platelet Vol. 8.6 fl (6.2-12.0); Monocyte# 1.25 X10^3/uL; Monocyte% 6.8 % (0-10); NRBC Flagged by Analyzer 0 % (0-5); Neutrophil # 12.31 X10^3/uL (2.7-7.7); Neutrophil % 67.5 % (47-70); Platelet Count 418 K/mm3 (150-450); RBC Distribution Width CV 14.6 % (11.6-14.6); RBC Distribution Width SD 46.5 fl (35.1-43.9); Red Blood Count 4.48 M/mm3 (4.2-5.4); White Blood Count 18.3 K/mm3 (4.4-11.0)
[2022-02-12 15:13] LABS: Color, Urine Straw (Yellow); Glucose, Dipstick Normal (Normal); Ketone-Dipstick Negative (Negative); Leukocyte Esterase-Dipstick Negative /ul (Negative); Nitrite-Dipstick Negative (Negative); Occult Blood-Urine Negative /ul (Negative); Protein-Dipstick Negative (Negative); Specific Gravity, Urine 1.005 (1.002-1.030); Urine Bilirubin Dipstick Negative (Negative); Urine Clarity Clear (Clear); Urine Urobilinogen Normal (Normal)
[2022-02-12 15:27] LABS: Bacteria RARE /hpf (None Seen)
[2022-02-12 15:31] LABS: Ferritin 27 ng/mL (8-252); Iron 47 ug/dL (50-170); Iron Binding Capacity,Total 423 ug/dL (250-450)
== END | disposition home or self-care (01) ==
LOC: MTLAB 12:41
PROVIDERS: PCP Family Medicine; Referring Provider Family Medicine; Visit Provider Family Medicine
DX: D50.9 Iron deficiency anemia, unspecified (principal)
CPT/HCPCS: 36415; 81001; 82728; 83540; 83550; 85025

== ENCOUNTER → 2022-02-18 | Outpatient (CLI) | payer MEDICAID, SELFPAY | END | disposition home or self-care (01) | LOC: PAVLAB 15:55 → LABSPEC 02-19 07:28 | PROVIDERS: PCP Family Medicine; Referring Provider Internal Medicine Critical Care Medicine; Visit Provider Internal Medicine Critical Care Medicine | DX: R06.00 Dyspnea, unspecified (principal) | CPT/HCPCS: 87070; 87205 ==

== ENCOUNTER 2022-03-01 12:22 | Outpatient (CLI) | payer MEDICAID, SELFPAY | END 2022-03-01 23:59 | disposition home or self-care (01) | LOC: PSN 12:23 | PROVIDERS: PCP Family Medicine; Visit Provider Internal Medicine Critical Care Medicine | DX: J44.9 Chronic obstructive pulmonary disease, unspecified (principal) | CPT/HCPCS: 94667 ==

== ENCOUNTER → 2022-03-03 | Outpatient (CLI) | payer MEDICAID, SELFPAY ==
--- NOTE | 2022-03-03 14:28 | US_ITS ---
STUDY: ULTRASOUND - URINARY BLADDER REASON FOR EXAM: Female, 61 years old. INCOMPLETE VOID TECHNIQUE: Ultrasound evaluation of the urinary bladder was performed with real-time and static holloway-scale imaging. COMPARISON: None. FINDINGS: There is no right UVJ calculus. There is a visualized right ureteral jet. There is no left UVJ calculus. There is a visualized left ureteral jet. The distended volume of the urinary bladder is 298 ml. The empty volume of the urinary bladder is 20 ml. The bladder wall is within normal limits. The bladder wall measures 3 mm. There is no demonstrated bladder wall mass lesion. There are no demonstrated bladder calculi. US/Post Void Residual Bladder IMPRESSION: Normal ultrasound of the urinary bladder. Electronically Signed: Ant Hairston MD at 15:15 EDT ,
== END | disposition home or self-care (01) ==
LOC: US 14:26
PROVIDERS: PCP Family Medicine; Referring Provider Family Medicine; Visit Provider Family Medicine
DX: R33.9 Retention of urine, unspecified (principal)
CPT/HCPCS: 51798; 76770

== ENCOUNTER 2022-03-10 09:07 | Day surgery (SDC) | payer MEDICAID, SELFPAY ==
[2022-03-10 09:37] VITALS: BP 122/64; PULSE 74; RESP 18; TEMP 36.3; O2SAT 98; BMI 44.1
[2022-03-10] MEDS: Lactated Ringers 1,000 ML 15 ML IV (10:00)
--- NOTE | 2022-03-10 10:02 | H&P.OPEN ---
HPI - General HPI Narrative DEVON BARAHONA, is a 61 F who presents for EGD and colonoscopy due to anemia patient's most recent hemoglobin was 12.7 on 02/12/2022. Patient states that her 40 mg of Nexium daily as well as Pepcid 20 mg p.o. twice daily does control her reflux symptoms. Patient still on her 6 L high flow supplemental oxygen concentrator at night as well as 6 L at home. Patient denies any chronic abdominal pain/nausea/vomiting. from 01/21/22 office visit: DEVON BARAHONA, is a 61 F who presents to the office today for endoscopy due to anemia.? Patient's most recent hemoglobin is 11 down from 12.? Patient was instructed to take iron however that upsets her stomach.? Patient is already on generic Nexium 20 mg p.o. twice daily as well as Pepcid 20 mg p.o. twice daily due to reflux?which control her symptoms unless she eats certain foods.? Patient was previously on 3 L nasal cannula at home; however, that has been increased to 6 L nasal cannula as well as on 6 L high flow supplemental oxygen concentrator at night.? Patient's last colonoscopy was in 2018 she had 2 tubular adenomas at that time.? Patient previously had a colonoscopy in [address] Spicer which had a tubulovillous adenoma which noted pseudoinvasion but no malignancy. [facility] Medical History (Updated 03/08/22 @ 12:35 by Awilda Arevalo) Abnormal colonoscopy Acute asthma Anxiety Anxiety Arthritis Back pain Bilateral headaches Blood clot in vein Cancer Cardiology follow-up encounter Carpal tunnel syndrome Chronic cough Chronic respiratory failure with hypoxia COPD (chronic obstructive pulmonary disease) Difficulty swallowing DVT (deep venous thrombosis) Easy bruising Emphysema, unspecified Environmental allergies Gastric reflux GERD (gastroesophageal reflux disease) Hirsutism History of cancer of vulva History of edema History of irregular heartbeat History of stress test Hx of colon cancer, stage I Hyperhidrosis Hyperlipidemia Hypertension IBS (irritable bowel syndrome) Low iron Morbid obesity Nicotine dependence Nonobstructive atherosclerosis of coronary artery Nonrheumatic mitral (valve) insufficiency Normal echocardiogram Obstructive sleep apnea syndrome On home oxygen therapy Pain in left lower leg Radicular low back pain Recurrent herpes simplex Seasonal allergies Segmental and somatic dysfunction of cervical region Segmental and somatic dysfunction of lumbar region Segmental and somatic dysfunction of pelvic region Segmental and somatic dysfunction of thoracic region Sleep apnea Smoker Stage 2 moderate COPD by GOLD classification Thyroid disease TIA (transient ischemic attack) Urinary incontinence Ventilator dependent Walker as ambulation aid Wears glasses Home Medications valacyclovir 500 mg tablet 500 mg PO DAILY 01/03/20 [History Last Taken 01/02/20] montelukast 10 mg tablet 10 mg PO DAILY 02/27/20 [History Last Taken 09/22/20] citalopram 20 mg tablet (Celexa) 40 mg PO DAILY 06/30/20 [History Last Taken 09/22/20] gabapentin 400 mg capsule 600 mg PO TID 07/29/20 [History Last Taken 01/27/21 05:15] alendronate 70 mg tablet (Fosamax) 70 mg PO QWEEK 09/09/20 [History Last Taken Unknown] calcium carb,cit 300 mg-D3 200 unit-min no.34-genistein 13.5 mg tablet (Citracal Plus Bone Density Builder) 1 tablet PO DAILY 10/30/20 [History Last Taken Unknown] Cbd 50 ml PO/SL QHS 01/20/21 [History Last Taken Unknown] clobetasol 0.05 % topical ointment 1 applic topical QHS PRN Itching 01/20/21 [History Last Taken Unknown] loratadine 10 mg tablet (Claritin) 10 mg PO DAILY 01/20/21 [History Last Taken Unknown] tiotropium 2.5 mcg-olodaterol 2.5 mcg/actuation mist for inhalation (Stiolto Respimat) 2 inh inhalation DAILY #4 grams 04/21/21 [Rx Last Taken Unknown] ipratropium 0.5 mg-albuterol 3 mg (2.5 mg base)/3 mL nebulization soln 3 ml inhalation Q4H PRN shortness of breath or wheezing #180 mL 08/10/21 [Rx Last Taken Unknown] lisinopril 10 mg tablet 10 mg PO QHS 10/21/21 [History Last Taken Unknown] prazosin 2 mg capsule 2 mg PO QHS 10/21/21 [History Last Taken Unknown] rosuvastatin 20 mg tablet (Crestor) 20 mg PO DAILY 10/21/21 [History Last Taken Unknown] benzonatate 200 mg capsule 200 mg PO TID PRN cough #90 caps 12/11/21 [Rx Last Taken Unknown] fluticasone propionate 220 mcg/actuation HFA aerosol inhaler (Flovent HFA) 2 inh inhalation BID #12 grams 12/11/21 [Rx Last Taken Unknown] spacer #1 ea 12/11/21 [Rx Last Taken Unknown] famotidine 20 mg tablet See Rx Instructions .Route .COMPLEX #60 TABLETS 01/19/22 [Rx Last Taken Unknown] esomeprazole magnesium 40 mg capsule,delayed release 40 mg PO DAILY #30 caps 01/20/22 [Rx Last Taken 03/10/22 08:15] peg 3350-electrolytes 236 gram-22.74 gram-6.74 gram-5.86 gram solution 240 ml PO Q20M #4,000 mL 01/20/22 [Rx Last Taken Unknown] PEP device #1 ea 02/25/22 [Rx Last Taken Unknown] docusate sodium 100 mg capsule (Stool Softener) 100 mg PO DAILY 03/08/22 [History Last Taken Unknown] iron-vitamin B complex 50 mg-0.4 mg tablet tab PO 03/08/22 [History Last Taken Unknown] oxybutynin chloride 5 mg tablet,extended release 24 hr (Ditropan XL) 5 mg PO DAILY 03/08/22 [History Last Taken Unknown] Allergy/AdvReac Type Severity Reaction Status Date / Time aloe vera Allergy Other Verified 03/10/22 09:34 doxycycline Allergy Other Verified 03/10/22 09:34 hydrocodone bitartrate Allergy Upset Verified 03/10/22 09:34 [From Vicodin] Stomach oxycodone HCl [From Percocet] Allergy Other Verified 03/10/22 09:34 propoxyphene HCl Allergy Vomiting Verified 03/10/22 09:34 [From Darvon] levofloxacin [From Levaquin] AdvReac Diarrhea Verified 03/10/22 09:34 Penicillins AdvReac yeast Verified 03/10/22 09:34 infection Family History Brother Myocardial infarction, Onset Age: 63 Other Alcoholism Alzheimer disease Anxiety Arthritis Asthma Breast cancer Cervical cancer Colon cancer Depression Heart disease High cholesterol Lung cancer Suicidal behavior Surgical History history of bladder sling History of bladder surgery History of breast surgery History of cardiac catheterization History of carpal tunnel release History of cataract surgery History of cornea transplant History of esophagogastroduodenoscopy (EGD) (07/05/18) History of herniorrhaphy (12/2019) History of left heart catheterization History of lumpectomy of both breasts History of nasal septoplasty History of partial hysterectomy History of right and left heart catheterization (09/22/20) Hx of appendectomy Hx of hand surgery Hx of hernia repair S/P colonoscopy (07/05/18) S/P hernia repair Social History Smoking Status: Current every day smoker tobacco type: cigarettes quit status: not considering quitting alcohol intake: never substance use type: does not use caffeine: Yes what type of physical activity do you participate in: none seatbelt use: always do you feel safe at home: Yes additional social history: - Joel Past Medical/Surgical History Planned Operation Planned Operative Procedure/s: EGD, Colonoscopy S.O.S: No Previous Hospitalizations/Surgeries HX Hospitalizations: No HX of Surgeries: nose surgery, cancer surgery, cornea replacement in eyes, bladder or x2, breast surgery, lap appy 04/2019 Any Problems With Anesthesia: Yes (TOO MUCH AND HAD FACIAL STROKE) You/Your Family Experience Fever (Hyperthermia) With Anes: No Cholinesterase deficiency: No Cardiovascular Hx Chest Pain within Last 2 months: No Hx of Irregular Heartbeat and/or Afib: No Hx Heart Attack: No Hx Congestive Heart Failure: No Hx Rheumatic Fever: No Hx Hypertension: Yes (CONTROLLED WITH MED) Hx Internal Defibrillator: No Hx Pacemaker: No Hx Cardiac Catheterization: No Hx Cardiac Surgery/Stents/Etc.: No Hx Stress Test: Yes (2011/patient states negative) Hx Pain in Legs when Walking/Leg Cramps: No (cramps/pain hip) Respiratory Chronic Cough: Yes HX of Shortness of Breath: Yes (sob with 2 flights of stairs) Hoarseness: No Hx Chronic Obstructive Pulmonary Disease (COPD): Yes Hx Asthma: Yes Hx Emphysema: Yes Hx Sleep Apnea: Yes CPAP: No (Ventilator 6l O2 at hs) BIPAP: No Hx Respiratory Tract Infection/Cold (presently): No Result (for STOP score): Positive Hx Smoking: Yes (10-12 CIGS PER DAY) Smoking Status: Current every day smoker Gastrointestinal Hx Gastroesophageal Reflux: Yes Controlled With Meds: Yes Hx Gastrointestinal Disorders: Yes (ibs) Hx Gastrointestinal Bleed: No Hx Ulcer: No Hx Hiatal Hernia: No Difficulty Chewing/Swallowing: Yes (DIFFICULTY SWALLOWING AT TIMES) Special diet followed at home: No Hx Unplanned Weight Loss of 20#: No HX Unplanned Weight Gain of 20#: No Neurological Hx Seizures: Yes (1 when baby) HX Syncope/Blackout Spells/Unconsciousness: No Hx Transient Ischemic Attacks (TIA): No Hx Multiple Sclerosis: No Hx Parkinson's Disease: No Hx Head/Neck Injury: Yes (neck injury yrs ago/pain prn) Hx Headaches: Yes (occ) Hx Back Injury/Pain: Yes (chronic back pain) Recent Onset of Speech Difficulty: No Restless Legs: No Does patient have nerve stimulator: No Blood Disorder Hx Leukemia: No Bleeding Tendencies: Yes (bruises easily) Hx Deep Vein Thrombosis: No Hx High Cholesterol: Yes (on med) Blood Transmitted Disease: No Hx Hepatitis: No Hx Cirrhosis: No Hx Anemia: No Hx Blood Disorders: No Reproduction : No Is Patient Lactating: No Hx Hysterectomy: No Hx Tubal Ligation: No Are You Post Menopause: Yes Genitourinary Hx Renal Disease: No Hx Dialysis: No Musculoskeletal Hx Arthritis: Yes Hx Rheumatoid Arthritis: No Hx Gout: No Recent Onset of an Orthopedic Problem: No Endocrine Hx Diabetes: No Thyroid Disease: Yes (goiter to have ultrasound) Hx Steroid Therapy: No Psycho/Social Hx Substance Use: No Hx Alcohol Use: No Hx Anxiety: Yes (on med) Hx Depression: No (HX IN PAST, NO MEDS NOW) Mental Illness: No Hx Dementia: No Miscellaneous Hx Cancer: Yes (vulvar cancer/precancer colon) Recent Exposure to Contagious Disease: No Hx of C-Diff: No Any Loose Teeth: No Allergies aloe vera Allergy (Verified 03/10/22 09:34) Other ARANA SKIN doxycycline Allergy (Verified 03/10/22 09:34) Other SEVERE YEAST INFECTION hydrocodone bitartrate [From Vicodin] Allergy (Verified 03/10/22 09:34) Upset Stomach oxycodone HCl [From Percocet] Allergy (Verified 03/10/22 09:34) Other HALUCINATE propoxyphene HCl [From Darvon] Allergy (Verified 03/10/22 09:34) Vomiting levofloxacin [From Levaquin] Adverse Reaction (Verified 03/10/22 09:34) Diarrhea Penicillins Adverse Reaction (Verified 03/10/22 09:34) yeast infection Maternal: Family History Brother Myocardial infarction, Onset Age: 63 Other Alcoholism Alzheimer disease Anxiety Arthritis Asthma Breast cancer Cervical cancer Colon cancer Depression Heart disease High cholesterol Lung cancer Suicidal behavior No pertinent history Discharge Is Pt Admitted From a Fdc, or a Assisted: No Who Could Help: family After D/C, Where Do you Plan to Go: Return Home From the PAT History Number of Risk Factors: 6 Vital Signs Vital Signs Vital Signs: 03/10/22 09:37 03/10/22 09:37 Temperature 97.3 F L Temperature Source Temporal Pulse Rate 74 Respiratory Rate 18 Respiratory Pattern Normal Blood Pressure 122/64 H Blood Pressure Mean 83 Blood Pressure Source Monitor Blood Pressure Position Semi-Fowlers Blood Pressure Location Left Arm Pulse Ox 98 Oxygen Delivery Method Nasal Cannula Oxygen Flow Rate (L/min) 3 Weight Weight: 233 lb 11.04 oz Body Mass Index (BMI) 44.1 Physical Exam Const alert, oriented x3 and no apparent distress HEENT normocephalic and head/scalp atraumatic Resp normal respiratory effort Cardio regular rate GI soft to palpation and non-tender; Negative for non-distended Palpation: Negative for guarding Extremity no clubbing, cyanosis or edema Neuro CN's II-XII intact bilaterally Psych mental status grossly normal Assessment & Plan Assessment/Plan (1) Anemia: Surgery Risks - Colonoscopy Risks Include but are not Limited To: Risks include but are not limited to: Bleeding, perforation requiring further surgery, inability to complete colonoscopy requiring barium enema.
[2022-03-10 12:20] VITALS: BP 108/60; BP 122/64; PULSE 117; RESP 22; TEMP 37.3; O2SAT 94
--- NOTE | 2022-03-10 12:21 | OP.EGD_ITS ---
Patient Name: Tiff Ladd Procedure Date: 03/10/2022 11:42 AM Date of : 1960 Age: 61 Procedure: Upper GI endoscopy Indications: Iron deficiency anemia Providers: Mirela Pugh MD Referring MD: Simone Isidro Medicines: Monitored Anesthesia Care Patient Profile: This is a 61 year old female. Complications: No immediate complications. Procedure: Pre-Anesthesia Assessment: - Prior to the procedure, a History and Physical was performed, and patient medications and allergies were reviewed. The patient's tolerance of previous anesthesia was also reviewed. The risks and benefits of the procedure and the sedation options and risks were discussed with the patient. All questions were answered, and informed consent was obtained. Prior Anticoagulants: The patient has taken no previous anticoagulant or antiplatelet agents. ASA Grade Assessment: Per anesthesia. After reviewing the risks and benefits, the patient was deemed in satisfactory condition to undergo the procedure. After obtaining informed consent, the endoscope was passed under direct vision. Throughout the procedure, the patient's blood pressure, pulse, and oxygen saturations were monitored continuously. The colonoscope was introduced through the mouth, and advanced to the second part of duodenum. The upper GI endoscopy was accomplished without difficulty. The patient tolerated the procedure poorly due to the patient's respiratory instability. The procedure was aborted due to the patient's respiratory instability after reaching the duodenum. Performing chin lift, administering oxygen, treating with ventilation and receiving assistance from additional staff did not allow for the successful completion of the procedure. Scope In: 11:54:06 AM Scope Out: 11:57:16 AM Total Procedure Duration Time 0 hours 3 minutes 10 seconds Findings: The examined duodenum was normal. No gross lesions were noted in the gastric body and in the gastric antrum. No gross lesions were noted in the entire esophagus. Impression: - The procedure was aborted due to the patient's respiratory instability. - Normal examined duodenum. - No gross lesions in the stomach. - No gross lesions in esophagus. - No specimens collected. Recommendation: - Discharge patient to home. - Resume previous diet. - Continue present medications. Procedure Code(s): --- Professional --- 50512, 53, Esophagogastroduodenoscopy, flexible, transoral; diagnostic, including collection of specimen(s) by brushing or washing, when performed (separate procedure) Diagnosis Code(s): --- Professional --- Z53.09, Procedure and treatment not carried out because of other contraindication D50.9, Iron deficiency anemia, unspecified CPT copyright 2017 [employer] [place] [employer]. All rights reserved. The codes documented in this report are preliminary and upon hog killer review may be revised to meet current compliance requirements. MD Mirela Pyle MD 03/10/2022 12:21:19 PM This report has been signed electronically. Number of Addenda: 0 Note Initiated On: 03/10/2022 11:42 AM
--- NOTE | 2022-03-10 12:22 | OP.CCLET_ITS ---
03/10/2022 Simone Isidro [address] [place] [address] Re : Upper GI endoscopy procedure for Tiff Ladd Dear Dr. Isidro This procedure was performed on Thursday, March 10, 2022. My impressions and recommendations are as follows: Impressions : - The procedure was aborted due to the patient's respiratory instability. - Normal examined duodenum. - No gross lesions in the stomach. - No gross lesions in esophagus. - No specimens collected. Recommendations : - Discharge patient to home. - Resume previous diet. - Continue present medications. My findings are described in the full procedure note, which is enclosed. If I can be of further assistance, please feel free to contact me at Doctor phone number(s): , Work: . Sincerely, MD Mirela Pyle MD 03/10/2022 12:21:19 PM This report has been signed electronically.
[2022-03-10 12:25] VITALS: BP 104/68; BP 122/64; PULSE 115; RESP 22; O2SAT 92
[2022-03-10 12:30] VITALS: BP 100/65; BP 122/64; PULSE 103; RESP 16; O2SAT 95
[2022-03-10 12:35] VITALS: BP 122/64; BP 90/63; PULSE 109; RESP 22; TEMP 36.5; O2SAT 94
[2022-03-10 12:58] VITALS: BP 122/64
== END 2022-03-10 13:02 | disposition home or self-care (01) ==
LOC: EN 09:08 → AC 09:08
PROVIDERS: PCP Family Medicine; Referring Provider Family Medicine; Visit Provider Surgery
PROC: 0DJD8ZZ Inspection of Lower Intestinal Tract, Via Natural or Artificial Opening Endoscopic (ICD-10-PCS; CPT 45378; principal; 2022-03-10 10:25)
DX: Z53.09 Procedure and treatment not carried out because of other contraindication (principal); D64.9 Anemia, unspecified; I10 Essential (primary) hypertension; F17.210 Nicotine dependence, cigarettes, uncomplicated; I25.10 Atherosclerotic heart disease of native coronary artery without angina pectoris; E78.5 Hyperlipidemia, unspecified; K21.9 Gastro-esophageal reflux disease without esophagitis; F41.9 Anxiety disorder, unspecified; G47.33 Obstructive sleep apnea (adult) (pediatric); M99.01 Segmental and somatic dysfunction of cervical region; M99.03 Segmental and somatic dysfunction of lumbar region; M99.05 Segmental and somatic dysfunction of pelvic region; M99.02 Segmental and somatic dysfunction of thoracic region; Z79.899 Other long term (current) drug therapy; Z99.81 Dependence on supplemental oxygen; Z86.73 Personal history of transient ischemic attack (TIA), and cerebral infarction without residual deficits; Z86.718 Personal history of other venous thrombosis and embolism
CPT/HCPCS: 43235; J7120; J2405

== ENCOUNTER → 2022-03-11 | Outpatient (CLI) | payer MEDICAID, SELFPAY ==
[2022-03-11 15:00] LABS: Absolute Neutrophil Count 7.9 X10^3/uL (2.0-7.7); Basophil# 0.04 X10^3/uL; Basophil% 0.4 % (0-1); Eosinophils% 0.9 % (0-5); Hematocrit 31.7 % (37-47); Hemoglobin 10.4 g/dL (12.0-15.0); Mean Corp Hgb Conc 32.8 g/dL (32-36); Mean Corpuscular Hgb 28.8 pg (27.0-32.0); Mean Corpuscular Volume 87.8 fL (81-99); Mean Platelet Vol. 8.8 fl (6.2-12.0); Monocyte# 0.87 X10^3/uL; Monocyte% 8.2 % (0-10); NRBC Flagged by Analyzer 0 % (0-5); Neutrophil # 7.85 X10^3/uL (2.7-7.7); Neutrophil % 73.7 % (47-70); Platelet Count 395 K/mm3 (150-450); RBC Distribution Width CV 15.2 % (11.6-14.6); RBC Distribution Width SD 49.1 fl (35.1-43.9); Red Blood Count 3.61 M/mm3 (4.2-5.4); White Blood Count 10.7 K/mm3 (4.4-11.0)
[2022-03-11 15:16] LABS: Ferritin 39 ng/mL (8-252); Iron 29 ug/dL (50-170); Iron Binding Capacity,Total 345 ug/dL (250-450)
== END | disposition home or self-care (01) ==
LOC: MTLAB 12:50
PROVIDERS: PCP Family Medicine; Referring Provider Family Medicine; Visit Provider Family Medicine
DX: D50.9 Iron deficiency anemia, unspecified (principal)
CPT/HCPCS: 36415; 82728; 83540; 83550; 85025

== ENCOUNTER 2022-03-15 21:03 | Inpatient (IN) | payer MEDICAID, SELFPAY ==
[2022-03-15 21:04] VITALS: BP 128/67; PULSE 83; RESP 20; TEMP 36.8; O2SAT 99; BMI 44.1
[2022-03-15 21:15] VITALS: BP 124/72; PULSE 93; PULSE 94; RESP 20; RESP 28; TEMP 36.2; O2SAT 96; O2SAT 97
--- NOTE | 2022-03-15 21:16 | EKG12_ITS ---
Test Reason : SOB Blood Pressure : / mmHG Vent. Rate : 080 BPM Atrial Rate : 080 BPM P-R Int : 146 ms QRS Dur : 076 ms QT Int : 366 ms P-R-T Axes : 012 050 046 degrees QTc Int : 422 ms Normal sinus rhythm Low voltage QRS Borderline ECG Confirmed by HOPE GARVEY, SHASHI ([id number]), news copy editor JAMEL OMER ([id number]) on 03/16/2022 8:23:37 AM Referred By: Confirmed By:SHASHI ARNETT MD
--- NOTE | 2022-03-15 21:17 | EX.ED.DYSGE1 ---
HPI History of Present Illness Chief Complaint: Shortness of Breath Detail of Chief Complaint: I do not feel well, productive cough with hemoptysis Informant: patient Onset/Context/Timing Onset: Days (Onset March 10) Context: Sudden Onset Timing: Continuous (Not feeling well) and Intermittent (Zeina hemoptysis) Quality: Sense of unwellness Location: Generalized Current Severity: Mild Maximum Severity: Moderate Worsened by: Nothing specific Relieved by: Nothing Associated Symptoms Associated Symptoms: Iron deficiency anemia with increased dyspnea on exertion Narrative Narrative: Patient is a 61-year-old woman who had an EGD performed this past March 10 for iron deficient anemia. Patient does have history of chronic respiratory failure with hypoxia, CHF, stage II COPD by Gold classification, and obstructive sleep apnea. She does have history of vulvar cancer. She also was diagnosed with stage I colon cancer. She presents because she has not felt well since Tuesday. She states she informed the doctors that she was coughing up blood after the procedure. She is not vomiting blood. Denies black or maroon-colored stool. She denies orthostatic symptoms. She denies history of VTE. She is presently not on an anticoagulant. She denies leg pain, swelling discoloration. She denies dysuria, frequency, urgency or hematuria. She denies chest pain. She denies orthopnea or PND. Prior similar symptoms: No Recent Illness/Hospitalization: Yes [facility] Medical History Abnormal colonoscopy Acute asthma Anxiety Anxiety Arthritis Back pain Bilateral headaches Blood clot in vein Cancer Cardiology follow-up encounter Carpal tunnel syndrome Chronic cough Chronic respiratory failure with hypoxia COPD (chronic obstructive pulmonary disease) Difficulty swallowing DVT (deep venous thrombosis) Easy bruising Emphysema, unspecified Environmental allergies Gastric reflux GERD (gastroesophageal reflux disease) Hirsutism History of cancer of vulva History of edema History of irregular heartbeat History of stress test Hx of colon cancer, stage I Hyperhidrosis Hyperlipidemia Hypertension IBS (irritable bowel syndrome) Low iron Morbid obesity Nicotine dependence Nonobstructive atherosclerosis of coronary artery Nonrheumatic mitral (valve) insufficiency Normal echocardiogram Obstructive sleep apnea syndrome On home oxygen therapy Pain in left lower leg Radicular low back pain Recurrent herpes simplex Seasonal allergies Segmental and somatic dysfunction of cervical region Segmental and somatic dysfunction of lumbar region Segmental and somatic dysfunction of pelvic region Segmental and somatic dysfunction of thoracic region Sleep apnea Smoker Stage 2 moderate COPD by GOLD classification Thyroid disease TIA (transient ischemic attack) Urinary incontinence Ventilator dependent Walker as ambulation aid Wears glasses Home Medications valacyclovir 500 mg tablet 500 mg PO DAILY 01/03/20 [History Last Taken 01/02/20] montelukast 10 mg tablet 10 mg PO DAILY 02/27/20 [History Last Taken 09/22/20] citalopram 20 mg tablet (Celexa) 40 mg PO DAILY 06/30/20 [History Last Taken 09/22/20] gabapentin 400 mg capsule 800 mg PO TID 07/29/20 [History Last Taken 01/27/21 05:15] alendronate 70 mg tablet (Fosamax) 70 mg PO QWEEK 09/09/20 [History Last Taken Unknown] calcium carb,cit 300 mg-D3 200 unit-min no.34-genistein 13.5 mg tablet (Citracal Plus Bone Density Builder) 1 tablet PO DAILY 10/30/20 [History Last Taken Unknown] Cbd 50 ml PO/SL QHS 01/20/21 [History Last Taken Unknown] clobetasol 0.05 % topical ointment 1 applic topical QHS PRN Itching 01/20/21 [History Last Taken Unknown] loratadine 10 mg tablet (Claritin) 10 mg PO DAILY 01/20/21 [History Last Taken Unknown] tiotropium 2.5 mcg-olodaterol 2.5 mcg/actuation mist for inhalation (Stiolto Respimat) 2 inh inhalation DAILY #4 grams 04/21/21 [Rx Last Taken Unknown] ipratropium 0.5 mg-albuterol 3 mg (2.5 mg base)/3 mL nebulization soln 3 ml inhalation Q4H PRN shortness of breath or wheezing #180 mL 08/10/21 [Rx Last Taken Unknown] lisinopril 10 mg tablet 10 mg PO QHS 10/21/21 [History Last Taken Unknown] prazosin 2 mg capsule 2 mg PO QHS 10/21/21 [History Last Taken Unknown] rosuvastatin 20 mg tablet (Crestor) 20 mg PO DAILY 10/21/21 [History Last Taken Unknown] benzonatate 200 mg capsule 200 mg PO TID PRN cough #90 caps 12/11/21 [Rx Last Taken Unknown] fluticasone propionate 220 mcg/actuation HFA aerosol inhaler (Flovent HFA) 2 inh inhalation BID #12 grams 12/11/21 [Rx Last Taken Unknown] spacer #1 ea 12/11/21 [Rx Last Taken Unknown] famotidine 20 mg tablet See Rx Instructions .Route .COMPLEX #60 TABLETS 01/19/22 [Rx Last Taken Unknown] esomeprazole magnesium 40 mg capsule,delayed release 40 mg PO DAILY #30 caps 01/20/22 [Rx Last Taken 03/10/22 08:15] PEP device #1 ea 02/25/22 [Rx Last Taken Unknown] docusate sodium 100 mg capsule (Stool Softener) 100 mg PO DAILY 03/08/22 [History Last Taken Unknown] iron-vitamin B complex 50 mg-0.4 mg tablet 1 tab PO DAILY 03/08/22 [History Last Taken Unknown] oxybutynin chloride 5 mg tablet,extended release 24 hr (Ditropan XL) 5 mg PO DAILY 03/08/22 [History Last Taken Unknown] lorazepam 0.5 mg tablet (Ativan) 0.5 mg PO TID PRN Anxiety 03/15/22 [History Last Taken Unknown] Allergy/AdvReac Type Severity Reaction Status Date / Time aloe vera Allergy Other Verified 03/15/22 21:23 doxycycline Allergy Other Verified 03/15/22 21:23 hydrocodone bitartrate Allergy Upset Verified 03/15/22 21:23 [From Vicodin] Stomach oxycodone HCl [From Percocet] Allergy Other Verified 03/15/22 21:23 propoxyphene HCl Allergy Vomiting Verified 03/15/22 21:23 [From Darvon] levofloxacin [From Levaquin] AdvReac Diarrhea Verified 03/15/22 21:23 Penicillins AdvReac yeast Verified 03/15/22 21:23 infection Family History Brother Myocardial infarction, Onset Age: 63 Other Alcoholism Alzheimer disease Anxiety Arthritis Asthma Breast cancer Cervical cancer Colon cancer Depression Heart disease High cholesterol Lung cancer Suicidal behavior Surgical History history of bladder sling History of bladder surgery History of breast surgery History of cardiac catheterization History of carpal tunnel release History of cataract surgery History of cornea transplant History of esophagogastroduodenoscopy (EGD) (07/05/18) History of herniorrhaphy (12/2019) History of left heart catheterization History of lumpectomy of both breasts History of nasal septoplasty History of partial hysterectomy History of right and left heart catheterization (09/22/20) Hx of appendectomy Hx of hand surgery Hx of hernia repair S/P colonoscopy (07/05/18) S/P hernia repair Social History (Updated 03/15/22 @ 21:[address] Marvel Loya MD) household members: spouse Smoking Status: Current every day smoker tobacco type: cigarettes quit status: not considering quitting alcohol intake: never substance use type: does not use caffeine: Yes what type of physical activity do you participate in: none seatbelt use: always do you feel safe at home: Yes additional social history: - Joel [facility] ED Constitutional Constitutional ED: Denies chills, fever(s), subjective or sweats Eyes Eyes: Denies blurry vision, change in vision or diplopia ENT ENT ED: Denies ear pain, rhinorrhea or sore throat Cardiovascular Cardiovascular: Denies chest pain, orthopnea, palpitations, paroxysmal nocturnal dyspnea or racing heartbeat Respiratory/Chest Respiratory/Chest: Reports cough, dyspnea, dyspnea on exertion, sputum and other Details: Hemoptysis ; Denies orthopnea or paroxysmal nocturnal dyspnea Gastrointestinal Gastrointestinal: Denies abdominal pain, constipation, diarrhea, melena, nausea or vomiting Genitourinary Genitourinary ED: Denies dysuria, hematuria or urinary frequency Musculoskeletal Musculoskeletal: Denies arthralgias, back pain, myalgias or neck pain Integumentary Denies Abrasions or rash Neurologic Neurologic: Denies headache(s) or paresthesias Endocrine Endocrinology: Denies cold intolerance or heat intolerance Hematologic/Lymphatic Hematologic/Lymphatic: Reports systems reviewed and no addt'l complaints, except as documented; Denies easy bleeding or easy bruising EXAM Physical Exam Const Vital Signs: 03/15/22 21:04 03/15/22 21:15 03/15/22 21:15 Temperature 98.2 F 97.2 F L 97.2 F L Temperature Source Temporal Temporal Oral Pulse Rate 83 93 94 Respiratory Rate 20 H 28 H 20 H Respiratory Effort Respiratory Depth Respiratory Pattern Blood Pressure 128/67 H 124/72 H 124/72 H Blood Pressure Mean 87 89 89 Pulse Ox 99 97 96 Oxygen Delivery Method Nasal Cannula Nasal Cannula Nasal Cannula Oxygen Flow Rate (L/min) 4 6 6 03/15/22 21:19 03/15/22 23:24 03/15/22 23:24 Temperature 98.5 F 98.5 F Temperature Source Temporal Temporal Pulse Rate 77 78 Respiratory Rate 15 14 Respiratory Effort Normal Non-Labored Respiratory Depth Normal Respiratory Pattern Normal Blood Pressure 114/69 114/69 Blood Pressure Mean 84 84 Pulse Ox 98 98 Oxygen Delivery Method Nasal Cannula Nasal Cannula Nasal Cannula Oxygen Flow Rate (L/min) 6 6 6 Positive well nourished, well developed and obese Constitutional Narrative: Patient does not appear well. Does not appear toxic either. General Appearance ED: well developed, NAD and pallor; Negative for cyanotic or diaphoretic Nutritional Appearance: obese HEENT Reports moist mucous membranes HEENT Narrative: Head is atraumatic normocephalic. Ears normal. Nares patent. Uvula midline. No deviation tongue with protrusion. Posterior pharynx out erythema or exudate. Eyes PERRL and EOMs intact bilaterally General Eye ED: Yes pale conjunctiva; Negative for scleral icterus Neck no lymphadenopathy, supple and no JVD Chest Wall inspection of chest normal and palpation of chest normal Resp normal respiratory effort and clear to auscultation bilaterally Cardio regular rate, regular rhythm, S1 normal heart sound, S2 normal heart sound and no murmurs GI normal to inspection, nondistended, normoactive bowel sounds, non-tender, non-distended and no masses; Negative for hepatosplenomegaly Back/Spine no CVA tenderness Back/Spine Narrative: Back appears normal. Neuro oriented x3, CN's II-XII intact bilaterally and no sensory deficits noted Neuro Narrative: Gait was observed. There is no ataxia. Sensorium / Orientation: alert Motor Exam: strength 5/5 throughout Psych Mood & Affect: depressed Skin no rashes or lesions noted and no wounds General Skin Exam: pallor; Negative for jaundice MDM MDM MDM Narrative Medical decision making narrative: With history of cancer, hemoptysis need to consider pulmonary embolus. Also need to consider pneumonia. Patient was not hypoxic with ambulation. Pulse ox was 96% on 4 L. She is normally on 6 L. Chest x-ray, EKG and appropriate blood work was ordered. With history of cancer, hemoptysis elevated D-dimer will obtain CTA to rule out PE CT reveals new infiltrate superior segment of the right and left lower lobe. Antibiotics were started. Blood cultures were not obtained since lactate is normal. Lab Data Attestation: I reviewed the patient's lab results. Lab results narrative: White count is elevated which is nonspecific. D-dimer is elevated even after correction for age. Basic metabolic panel is unremarkable. Transaminases normal lactate is normal Labs: Laboratory Results - last 24 hr 03/15/22 03/15/22 03/15/22 21:20 21:20 21:20 WBC 13.7 H RBC 3.79 L Hgb 10.5 L Hct 33.3 L MCV 87.9 MCH 27.7 MCHC 31.5 L RDW Std Deviation 48.8 H RDW Coeff of Kayla 15.4 H Plt Count 394 MPV 8.6 Immature Gran % (Auto) 0.700 Neut % (Auto) 77.6 H Lymph % (Auto) 13.2 L Price % (Auto) 7.0 Eos % (Auto) 1.2 Baso % (Auto) 0.3 Absolute Neuts (auto) 10.7 H Absolute Lymphs (auto) 1.81 Nucleated RBC % 0 D-Dimer Quant (PE/DVT) 0.70 H* Sodium 138 Potassium 4.0 Chloride 107 Carbon Dioxide 26.0 Anion Gap 5 BUN 8 Creatinine 0.72 Estim Creat Clear Calc 61.13 Est GFR (MDRD) Af Amer 105 Est GFR (MDRD) Non-Af 87 BUN/Creatinine Ratio 11.1 Glucose 94 Lactic Acid Calcium 8.8 Total Bilirubin 0.90 AST 10 L ALT 16 Alkaline Phosphatase 127 H Total Protein 7.5 Albumin 3.3 Globulin 4.2 Albumin/Globulin Ratio 0.8 L Urine Color Urine Clarity Urine pH Ur Specific [place] Urine Protein Urine Glucose (UA) Urine Ketones Urine Occult Blood Urine Nitrite Urine Bilirubin Urine Urobilinogen Ur Leukocyte Esterase Urine RBC Urine WBC Ur Squamous Epith Cells Urine Bacteria Urine Mucus 03/15/22 03/15/22 21:20 22:25 WBC RBC Hgb Hct MCV MCH MCHC RDW Std Deviation RDW Coeff of Kayla Plt Count MPV Immature Gran % (Auto) Neut % (Auto) Lymph % (Auto) Price % (Auto) Eos % (Auto) Baso % (Auto) Absolute Neuts (auto) Absolute Lymphs (auto) Nucleated RBC % D-Dimer Quant (PE/DVT) Sodium Potassium Chloride Carbon Dioxide Anion Gap BUN Creatinine Estim Creat Clear Calc Est GFR (MDRD) Af Amer Est GFR (MDRD) Non-Af BUN/Creatinine Ratio Glucose Lactic Acid 0.7 Calcium Total Bilirubin AST ALT Alkaline Phosphatase Total Protein Albumin Globulin Albumin/Globulin Ratio Urine Color Yellow Urine Clarity Sl. Cloudy Urine pH 7.0 Ur Specific [place] 1.005 Urine Protein Negative Urine Glucose (UA) Normal Urine Ketones Negative Urine Occult Blood Negative Urine Nitrite Negative Urine Bilirubin Negative Urine Urobilinogen Normal Ur Leukocyte Esterase Negative Urine RBC 0 SEEN Urine WBC 0 SEEN Ur Squamous Epith Cells 0-5 SEEN Urine Bacteria 0 SEEN Urine Mucus 0 SEEN Radiography Chest X-Ray - ED: 2 View and Read by ED Physician (2 view chest x-ray reveals chronic changes and unchanged from February 05.) Diagnostic Testing: Clinical Impression(s) from Imaging Studies Chest X-Ray 03/15/22 21:41 IMPRESSION: Findings of pulmonary emphysema and chronic interstitial fibrotic changes are again identified. Possible minimal pneumonia in the right upper lobe. Electronically Signed: Magdiel Cruz MD at 22:09 EDT , EKG Initial EKG: Attestation: I personally reviewed and interpreted this EKG as follows: Interpretation: Sinus Rhythm (Ventricular rate is 80. TN interval 146 ms. QS duration 76 ms. QT duration 266 ms. [place] is normal. Patient does have low voltage. This may be due to body habitus.) Discharge Plan Triage Chief Complaint: Shortness of Breath ED Provider: Marvel Loya Dx/Rx/DC Orders Clinical Impression: Pneumonia of both lower lobes, Stage 2 moderate COPD by GOLD classification, Cough with hemoptysis Prescriptions: No Action montelukast 10 mg tablet 10 mg PO DAILY gabapentin 400 mg capsule 800 mg PO TID citalopram [Celexa] 20 mg tablet 40 mg PO DAILY alendronate [Fosamax] 70 mg tablet 70 mg PO QWEEK Citracal Plus Bone Density 300-200-13.5 mg-unit-mg tablet 1 tablet PO DAILY Stiolto Respimat 2.5-2.5 mcg/actuation mist 2 inh inhalation DAILY Qty: 4 2RF ipratropium-albuterol 0.5 mg-3 mg(2.5 mg base)/3 mL solution for nebulization 3 ml inhalation Q4H PRN (Reason: shortness of breath or wheezing) Qty: 180 3RF benzonatate 200 mg capsule 200 mg PO TID PRN (Reason: cough) Qty: 90 0RF Flovent HFA 220 mcg/actuation HFA aerosol inhaler 2 inh inhalation BID Qty: 12 6RF Rx Instructions: administer with spacer (DME) spacer See Rx Instructions .ROUTE .MEDSUPPLY Qty: 1 0RF Rx Instructions: As directed esomeprazole magnesium 40 mg capsule,delayed release(DR/EC) 40 mg PO DAILY Qty: 30 5RF valacyclovir 500 MG tablet 500 mg PO DAILY Cbd 50 ml PO/SL QHS clobetasol 0.05 % ointment 1 applic TOPICAL QHS PRN (Reason: Itching) loratadine [Claritin] 10 mg Tablet 10 mg PO DAILY prazosin 2 mg Capsule 2 mg PO QHS rosuvastatin [Crestor] 20 mg Tablet 20 mg PO DAILY lisinopril 10 mg tablet 10 mg PO QHS docusate sodium [Stool Softener] 100 mg Capsule 100 mg PO DAILY Geritol 50-0.4 mg Tablet 1 tab PO DAILY oxybutynin chloride [Ditropan XL] 5 mg Tablet Extended Release 24hr 5 mg PO DAILY lorazepam [Ativan] 0.5 mg Tablet 0.5 mg PO TID PRN (Reason: Anxiety) famotidine 20 mg tablet See Rx Instructions .ROUTE .COMPLEX Qty: 60 2RF Dose Instruction: TAKE 1 TABLET BY MOUTH TWICE DAILY Rx Instructions: TAKE 1 TABLET BY MOUTH TWICE DAILY (DME) PEP device See Rx Instructions .ROUTE .MEDSUPPLY Qty: 1 0RF Rx Instructions: with training Primary Care Provider: Simone Isidro Referrals: Simone Isidro MD [Primary Care Provider] - Disposition Disposition: Acute Care Hospital [facility]
[2022-03-15 21:19] VITALS: O2SAT 98
[2022-03-15 21:31] LABS: Absolute Lymphocyte Count 1.81 X10^3/uL (0.83-4.51); Absolute Neutrophil Count 10.7 X10^3/uL (2.0-7.7); Basophil# 0.04 X10^3/uL; Basophil% 0.3 % (0-1); Eosinophil# 0.16 X10^3/uL; Eosinophils% 1.2 % (0-5); Hematocrit 33.3 % (37-47); Hemoglobin 10.5 g/dL (12.0-15.0); Lymphocyte # 1.81 X10^3/ul (0.83-4.51); Lymphocyte % 13.2 % (19-41); Mean Corp Hgb Conc 31.5 g/dL (32-36); Mean Corpuscular Hgb 27.7 pg (27.0-32.0); Mean Corpuscular Volume 87.9 fL (81-99); Mean Platelet Vol. 8.6 fl (6.2-12.0); Monocyte# 0.96 X10^3/uL; NRBC Flagged by Analyzer 0 % (0-5); Neutrophil # 10.68 X10^3/uL (2.7-7.7); Neutrophil % 77.6 % (47-70); Platelet Count 394 K/mm3 (150-450); RBC Distribution Width CV 15.4 % (11.6-14.6); RBC Distribution Width SD 48.8 fl (35.1-43.9); Red Blood Count 3.79 M/mm3 (4.2-5.4); White Blood Count 13.7 K/mm3 (4.4-11.0)
--- NOTE | 2022-03-15 21:41 | RAD_ITS ---
EXAM: XR CHEST, 2 VIEWS CLINICAL INDICATION: Cough, shortness of breath, hemoptysis TECHNIQUE: Frontal and lateral views of the chest. This report was created using [employer] report generation technology. COMPARISON: Previous chest radiographs of 02/05/2022 and 07/02/2020. FINDINGS: LUNGS AND PLEURAL SPACES: The lungs remain hyperinflated with flattening of the hemidiaphragms. There is pruning of the peripheral pulmonary vascular markings due to pulmonary emphysema. Chronic interstitial fibrotic changes are noted bilaterally. There is possible minimal developing pneumonia in the right upper lobe, projected between the anterior right second and third rib. No other acute pulmonary infiltrates are identified. No pneumothorax. No effusion. HEART: Heart size is upper normal. There is no pulmonary venous hypertension. MEDIASTINUM: Thoracic aorta remains minimally elongated. BONES/JOINTS: No acute osseous abnormality. SOFT TISSUES: Unremarkable. OTHER FINDINGS: 3 views are submitted. RAD/Chest PA and Lateral IMPRESSION: Findings of pulmonary emphysema and chronic interstitial fibrotic changes are again identified. Possible minimal pneumonia in the right upper lobe. Electronically Signed: Magdiel Cruz MD at 22:09 EDT ,
[2022-03-15 21:50] LABS: ALB/GLOB Ratio 0.8 RATIO (0.9-2.4); AST(SGOT) 10 U/L (15-37); Alanine Aminotransfer ALT/SGPT 16 U/L (13-56); Albumin, Serum 3.3 g/dL (3.2-5.0); Alkaline Phosphatase 127 U/L (45-117); Anion Gap 5 (5-15); BUN 8 mg/dL (7-18); BUN/Creat Ratio 11.1 RATIO (10-20); Calcium,Total 8.8 mg/dL (8.5-10.1); Chloride 107 mmol/L (98-107); Creatinine, Serum 0.72 mg/dL (0.55-1.02); EST Glomerular Filtration Rate 87 mL/min (>60); Est Glom Filt Rate - Afr Amer 105 mL/min (>60); Estimated Creatinine Clearance 61.13 ml/min; Globulin 4.2 g/dL (2.2-4.2); Glucose 94 mg/dL (74-106); Protein, Total 7.5 g/dL (6.4-8.2); Sodium Level 138 mmol/L (136-145)
[2022-03-15 21:53] LABS: Lactic Acid 0.7 mmol/L (0.4-1.9)
--- NOTE | 2022-03-15 22:09 | CT_ITS ---
EXAM: CT ANGIOGRAPHY CHEST WITHOUT AND WITH INTRAVENOUS CONTRAST CLINICAL INDICATION: Dyspnea, hemoptysis, suspect pulmonary embolus TECHNIQUE: Helically acquired angiography images were obtained of the chest without and with intravenous contrast. This CT exam was performed using one or more of the following dose reduction techniques: automated exposure control, adjustment of the mA and/or kV according to patient size, and/or use of iterative reconstruction technique. This report was created using [employer] report generation technology. MIP reconstructed images were created and reviewed. CONTRAST: IV 100mL [id number] RADIATION DOSE: Total DLP: 590.51 mGy-cm. COMPARISON: Chest radiographs of this date. Low-dose chest CT of 11/24/2021. FINDINGS: PULMONARY ARTERIES: Unremarkable. Normal in caliber. No evidence of pulmonary embolism. AORTA: Unremarkable. Normal in caliber. No evidence of dissection. GREAT VESSELS OF AORTIC ARCH: Unremarkable. Normal in caliber. No evidence of dissection. LUNGS AND PLEURAL SPACES: Pulmonary emphysema is present. Minimal peribronchial cuffing is again noted. Minimal patchy airspace disease has developed within the superior segment of both lower lobes. Pulmonary interstitial markings in the upper lobes are thicker than on the prior study, with scattered small foci of developing airspace disease noted within the upper lobes, slightly greater on the right. No pleural effusions. No mass. HEART: Extensive coronary artery calcification is present. No pericardial effusion. MEDIASTINUM: Bilateral hilar adenopathy, right greater than left. Normal size mediastinal lymph nodes are present. No mediastinal adenopathy. Esophagus is unremarkable. No hiatal hernia. THYROID: Unremarkable. No thyroid lesions. BONES/JOINTS: No acute osseous abnormality. No suspicious lytic or blastic abnormality. INTRAPERITONEAL SPACE: Simple hepatic cysts are incidentally noted. Visualized portions of the spleen, pancreas, gallbladder, adrenal glands and renal upper poles are unremarkable. No pneumoperitoneum is noted. CT/CTA Chest W/WO Contrast IMPRESSION: Negative for PE. Increasing interstitial thickening in both upper lobes with development of patchy airspace disease within the upper lobes and lower lobe superior segments, secondary to pulmonary infection versus edema. Associated bilateral hilar adenopathy. Electronically Signed: Magdiel Cruz MD at 0:01 EDT ,
[2022-03-15 22:42] LABS: Bacteria 0 SEEN /hpf (None Seen); Mucous, Urine 0 SEEN /hpf (<or=2+); Red Blood Cells-Urine 0 SEEN /hpf (0-5); White Blood Cells 0 SEEN /hpf (0-5)
[2022-03-15 22:44] LABS: Color, Urine Yellow (Yellow); Glucose, Dipstick Normal (Normal); Ketone-Dipstick Negative (Negative); Leukocyte Esterase-Dipstick Negative /ul (Negative); Nitrite-Dipstick Negative (Negative); Occult Blood-Urine Negative /ul (Negative); Protein-Dipstick Negative (Negative); Specific Gravity, Urine 1.005 (1.002-1.030); Urine Bilirubin Dipstick Negative (Negative); Urine Clarity Sl. Cloudy (Clear); Urine Urobilinogen Normal (Normal)
[2022-03-15 22:55] LABS: Squamous Epithelial Cells - UA 0-5 SEEN /hpf (5-10)
[2022-03-15 23:24] VITALS: BP 114/69; PULSE 77; PULSE 78; RESP 14; RESP 15; TEMP 36.9; O2SAT 98
[2022-03-16] VITALS (10 sets, daily range): BP systolic 108–139; BP diastolic 56–84; PULSE 66–88; RESP 12–25; TEMP 36.7–37.1; O2SAT 94–100; BMI 41.1
--- NOTE | 2022-03-16 00:25 | HP.PCM.HOS_ITS ---
[facility] - General General Date of Admission: 03/16/22 Date of Service: 03/16/22 Chief Complaint: sob HPI Narrative DEVON BARAHONA, is a 61 F with a significant history of COPD on 6 L nasal cannula oxygen [id number] and noninvasive pressure ventilation at night who presents to the emergency department with increased shortness of breath above her baseline. Reportedly EGD was attempted 5 days before presentation. Reportedly the EGD could not be completed since she had shortness of breath. After the EGD she had multiple episodes of hemoptysis. Her hemoptysis stopped the day before presentation. She reports shortness of breath above her baseline. She reports a productive cough of yellow sputum. She reports weakness. She reports chest pain that she attributes to coughing. [facility] Medical History Abnormal colonoscopy Acute asthma Anxiety Anxiety Arthritis Back pain Bilateral headaches Blood clot in vein Cancer Cardiology follow-up encounter Carpal tunnel syndrome Chronic cough Chronic respiratory failure with hypoxia COPD (chronic obstructive pulmonary disease) Difficulty swallowing DVT (deep venous thrombosis) Easy bruising Emphysema, unspecified Environmental allergies Gastric reflux GERD (gastroesophageal reflux disease) Hirsutism History of cancer of vulva History of edema History of irregular heartbeat History of stress test Hx of colon cancer, stage I Hyperhidrosis Hyperlipidemia Hypertension IBS (irritable bowel syndrome) Low iron Morbid obesity Nicotine dependence Nonobstructive atherosclerosis of coronary artery Nonrheumatic mitral (valve) insufficiency Normal echocardiogram Obstructive sleep apnea syndrome On home oxygen therapy Pain in left lower leg Radicular low back pain Recurrent herpes simplex Seasonal allergies Segmental and somatic dysfunction of cervical region Segmental and somatic dysfunction of lumbar region Segmental and somatic dysfunction of pelvic region Segmental and somatic dysfunction of thoracic region Sleep apnea Smoker Stage 2 moderate COPD by GOLD classification Thyroid disease TIA (transient ischemic attack) Urinary incontinence Ventilator dependent Walker as ambulation aid Wears glasses Home Medications valacyclovir 500 mg tablet 500 mg PO DAILY 01/03/20 [History Last Taken 01/02/20] montelukast 10 mg tablet 10 mg PO DAILY 02/27/20 [History Last Taken 09/22/20] citalopram 20 mg tablet (Celexa) 40 mg PO DAILY 06/30/20 [History Last Taken 09/22/20] gabapentin 400 mg capsule 800 mg PO TID 07/29/20 [History Last Taken 01/27/21 05:15] alendronate 70 mg tablet (Fosamax) 70 mg PO QWEEK 09/09/20 [History Last Taken Unknown] calcium carb,cit 300 mg-D3 200 unit-min no.34-genistein 13.5 mg tablet (Citracal Plus Bone Density Builder) 1 tablet PO DAILY 10/30/20 [History Last Taken Unknown] Cbd 50 ml PO/SL QHS 01/20/21 [History Last Taken Unknown] clobetasol 0.05 % topical ointment 1 applic topical QHS PRN Itching 01/20/21 [History Last Taken Unknown] loratadine 10 mg tablet (Claritin) 10 mg PO DAILY 01/20/21 [History Last Taken Unknown] tiotropium 2.5 mcg-olodaterol 2.5 mcg/actuation mist for inhalation (Stiolto Respimat) 2 inh inhalation DAILY #4 grams 04/21/21 [Rx Last Taken Unknown] ipratropium 0.5 mg-albuterol 3 mg (2.5 mg base)/3 mL nebulization soln 3 ml inhalation Q4H PRN shortness of breath or wheezing #180 mL 08/10/21 [Rx Last Taken Unknown] lisinopril 10 mg tablet 10 mg PO QHS 10/21/21 [History Last Taken Unknown] prazosin 2 mg capsule 2 mg PO QHS 10/21/21 [History Last Taken Unknown] rosuvastatin 20 mg tablet (Crestor) 20 mg PO DAILY 10/21/21 [History Last Taken Unknown] benzonatate 200 mg capsule 200 mg PO TID PRN cough #90 caps 12/11/21 [Rx Last Taken Unknown] fluticasone propionate 220 mcg/actuation HFA aerosol inhaler (Flovent HFA) 2 inh inhalation BID #12 grams 12/11/21 [Rx Last Taken Unknown] spacer #1 ea 12/11/21 [Rx Last Taken Unknown] famotidine 20 mg tablet See Rx Instructions .Route .COMPLEX #60 TABLETS 01/19/22 [Rx Last Taken Unknown] esomeprazole magnesium 40 mg capsule,delayed release 40 mg PO DAILY #30 caps 01/20/22 [Rx Last Taken 03/10/22 08:15] PEP device #1 ea 02/25/22 [Rx Last Taken Unknown] docusate sodium 100 mg capsule (Stool Softener) 100 mg PO DAILY 03/08/22 [History Last Taken Unknown] iron-vitamin B complex 50 mg-0.4 mg tablet 1 tab PO DAILY 03/08/22 [History Last Taken Unknown] oxybutynin chloride 5 mg tablet,extended release 24 hr (Ditropan XL) 5 mg PO DAILY 03/08/22 [History Last Taken Unknown] lorazepam 0.5 mg tablet (Ativan) 0.5 mg PO TID PRN Anxiety 03/15/22 [History Last Taken Unknown] Allergy/AdvReac Type Severity Reaction Status Date / Time aloe vera Allergy Other Verified 03/15/22 21:23 doxycycline Allergy Other Verified 03/15/22 21:23 hydrocodone bitartrate Allergy Upset Verified 03/15/22 21:23 [From Vicodin] Stomach oxycodone HCl [From Percocet] Allergy Other Verified 03/15/22 21:23 propoxyphene HCl Allergy Vomiting Verified 03/15/22 21:23 [From Darvon] levofloxacin [From Levaquin] AdvReac Diarrhea Verified 03/15/22 21:23 Penicillins AdvReac yeast Verified 03/15/22 21:23 infection Family History Brother Myocardial infarction, Onset Age: 63 Other Alcoholism Alzheimer disease Anxiety Arthritis Asthma Breast cancer Cervical cancer Colon cancer Depression Heart disease High cholesterol Lung cancer Suicidal behavior Surgical History history of bladder sling History of bladder surgery History of breast surgery History of cardiac catheterization History of carpal tunnel release History of cataract surgery History of cornea transplant History of esophagogastroduodenoscopy (EGD) (07/05/18) History of herniorrhaphy (12/2019) History of left heart catheterization History of lumpectomy of both breasts History of nasal septoplasty History of partial hysterectomy History of right and left heart catheterization (09/22/20) Hx of appendectomy Hx of hand surgery Hx of hernia repair S/P colonoscopy (07/05/18) S/P hernia repair Social History household members: spouse Smoking Status: Current every day smoker tobacco type: cigarettes quit status: not considering quitting alcohol intake: never substance use type: does not use caffeine: Yes what type of physical activity do you participate in: none seatbelt use: always do you feel safe at home: Yes additional social history: - Joel FAITH Narrative Pertinent positives and pertinent negatives as noted in HPI. All other systems were reviewed and are negative Vital Signs Vital Signs Vital Signs: 03/15/22 21:04 03/15/22 21:15 03/15/22 21:15 Temperature 98.2 F 97.2 F L 97.2 F L Temperature Source Temporal Temporal Oral Pulse Rate 83 93 94 Respiratory Rate 20 H 28 H 20 H Respiratory Effort Respiratory Depth Respiratory Pattern Blood Pressure 128/67 H 124/72 H 124/72 H Blood Pressure Mean 87 89 89 Pulse Ox 99 97 96 Oxygen Delivery Method Nasal Cannula Nasal Cannula Nasal Cannula Oxygen Flow Rate (L/min) 4 6 6 03/15/22 21:19 03/15/22 23:24 03/15/22 23:24 Temperature 98.5 F 98.5 F Temperature Source Temporal Temporal Pulse Rate 77 78 Respiratory Rate 15 14 Respiratory Effort Normal Non-Labored Respiratory Depth Normal Respiratory Pattern Normal Blood Pressure 114/69 114/69 Blood Pressure Mean 84 84 Pulse Ox 98 98 Oxygen Delivery Method Nasal Cannula Nasal Cannula Nasal Cannula Oxygen Flow Rate (L/min) 6 6 6 03/16/22 00:08 Temperature 98.0 F Temperature Source Temporal Pulse Rate 72 Respiratory Rate 16 Respiratory Effort Respiratory Depth Respiratory Pattern Blood Pressure 122/56 H Blood Pressure Mean 78 Pulse Ox 99 Oxygen Delivery Method Nasal Cannula Oxygen Flow Rate (L/min) 6 Weight Weight: 106.141 kg Body Mass Index (BMI) 44.1 Physical Exam Narrative Physical exam: General: Well-nourished, well-developed. Head: Normocephalic, atraumatic, no tenderness Eyes: Vision is grossly intact. EOMI ENT, no trauma, moist mucous membranes, no rhinorrhea Neck: Nontender, full range of motion. CVS: Regular rate and rhythm. S1-S2 present. No murmur, gallop or rub. Respiratory : Mild rales, chest wall nontender, no wheezing Abdomen: Soft, nontender, nondistended, normal bowel sounds, no masses : Deferred Back: Nontender, no CVA tenderness. Extremities: Nontender full range of motion, no trauma Skin: Normal color, no trauma, abrasions Neuro: Alert, oriented, cranial nerves II through XII grossly intact. Psychiatry: Normal mood. Normal affect. Not depressed. Not anxious. Results Lab / Micro Data Result Diagrams: 03/15/22 21:20 03/15/22 21:20 Labs: Laboratory Results - last 24 hr 03/15/22 21:20: WBC 13.7 H, RBC 3.79 L, Hgb 10.5 L, Hct 33.3 L, MCV 87.9, MCH 27.7, MCHC 31.5 L, RDW Std Deviation 48.8 H, RDW Coeff of Kayla 15.4 H, Plt Count 394, MPV 8.6, Immature Gran % (Auto) 0.700, Neut % (Auto) 77.6 H, Lymph % (Auto) 13.2 L, [place] % (Auto) 7.0, Eos % (Auto) 1.2, Baso % (Auto) 0.3, Absolute Neuts (auto) 10.7 H, Absolute Lymphs (auto) 1.81, Nucleated RBC % 0 03/15/22 21:20: D-Dimer Quant (PE/DVT) 0.70 H* 03/15/22 21:20: Sodium 138, Potassium 4.0, Chloride 107, Carbon Dioxide 26.0, Anion Gap 5, BUN 8, Creatinine 0.72, Estim Creat Clear Calc 61.13, Est GFR (MDRD) Af Amer 105, Est GFR (MDRD) Non-Af 87, BUN/Creatinine Ratio 11.1, Glucose 94, Calcium 8.8, Total Bilirubin 0.90, AST 10 L, ALT 16, Alkaline Phosphatase 127 H, Total Protein 7.5, Albumin 3.3, Globulin 4.2, Albumin/Globulin Ratio 0.8 L 03/15/22 21:20: Lactic Acid 0.7 03/15/22 22:25: Urine Color Yellow, Urine Clarity Sl. Cloudy, Urine pH 7.0, Ur Specific [place] 1.005, Urine Protein Negative, Urine Glucose (UA) Normal, Urine Ketones Negative, Urine Occult Blood Negative, Urine Nitrite Negative, Urine Bilirubin Negative, Urine Urobilinogen Normal, Ur Leukocyte Esterase Negative, Urine RBC 0 SEEN, Urine WBC 0 SEEN, Ur Squamous Epith Cells 0-5 SEEN, Urine Bacteria 0 SEEN, Urine Mucus 0 SEEN Radiology Impression Chest X-Ray 03/15/22 21:41 IMPRESSION: Findings of pulmonary emphysema and chronic interstitial fibrotic changes are again identified. Possible minimal pneumonia in the right upper lobe. Electronically Signed: Magdiel Cruz MD at 22:09 EDT , Chest CTA 03/15/22 22:09 IMPRESSION: Negative for PE. Increasing interstitial thickening in both upper lobes with development of patchy airspace disease within the upper lobes and lower lobe superior segments, secondary to pulmonary infection versus edema. Associated bilateral hilar adenopathy. Electronically Signed: Magdiel Cruz MD at 0:01 EDT , Assessment & Plan Assessment/Plan (1) Bilateral pneumonia: (2) Chronic respiratory failure with hypoxia: (3) Stage 2 moderate COPD by GOLD classification: (4) Cough with hemoptysis: PLAN: Plan Bilateral pneumonia/Hemoptysis With recent attempted EGD suspect aspiration pneumonia. Cannot rule out gram- positive, gram-negative or atypical organisms. Chest x-ray with a possible mild right upper lobe opacity D-dimer of 0.70. Chest CTA was visualized and independently interpreted. Agree with interpretation of negative PE. Increasing interstitial thickening in both upper lobes with development of patchy airspace disease within the upper lobes and lower lobe superior segments, secondary to pulmonary infection versus edema.? Associated bilateral hilar adenopathy. CBC showed white count of 13.7 with neutrophilia and lymphopenia. Trend CBC. Ceftriaxone and azithromycin ordered at the ED. Unasyn and azithromycin ordered. Of note patient's reports extensive yeast infection with penicillin. Fluconazole 150 mg every 3 days x 2 doses ordered. Chest Physiotherapy and incentive spirometer. Home inhalers continued Debility Physical therapy to work with patient for strengthening Tobacco abuse: Declined nicotine patch. Counseled COPD/Chronic respiratory failure with hypoxia Stable. Home inhalers continued. DVT prophylaxis: No chemical thromboprophylaxis with recent hemoptysis. SCDs ordered. Charges/Coding Visit Charges OBSV E&M: 02390 Initial observation care L3
[2022-03-16] MEDS: guaiFENesin 1,200 MG Tablet 1200 MG PO ×3 (01:50→21:10)
[2022-03-16] MEDS: FLUCONAZOLE 150 MG TABLET PO (01:50)
--- NOTE | 2022-03-16 02:16 | CPS ---
pt unable to tolerate mask, placed back on NC 6Lpm
[2022-03-16] MEDS: 0.9% Saline Lock 10 ML Syringe IV ×4 (03:15→21:10)
[2022-03-16] MEDS: Ondansetron 4 MG/2 ML Vial IV (03:15)
[2022-03-16 06:03] LABS: Absolute Lymphocyte Count 1.91 X10^3/uL (0.83-4.51); Absolute Neutrophil Count 9.1 X10^3/uL (2.0-7.7); Basophil# 0.04 X10^3/uL; Basophil% 0.3 % (0-1); Eosinophil# 0.15 X10^3/uL; Eosinophils% 1.2 % (0-5); Hematocrit 32.9 % (37-47); Hemoglobin 10.4 g/dL (12.0-15.0); Lymphocyte # 1.91 X10^3/ul (0.83-4.51); Lymphocyte % 15.5 % (19-41); Mean Corp Hgb Conc 31.6 g/dL (32-36); Mean Corpuscular Hgb 27.7 pg (27.0-32.0); Mean Corpuscular Volume 87.5 fL (81-99); Mean Platelet Vol. 8.7 fl (6.2-12.0); Monocyte# 1.05 X10^3/uL; Monocyte% 8.5 % (0-10); NRBC Flagged by Analyzer 0 % (0-5); Neutrophil # 9.12 X10^3/uL (2.7-7.7); Neutrophil % 73.8 % (47-70); Platelet Count 397 K/mm3 (150-450); RBC Distribution Width CV 15.4 % (11.6-14.6); RBC Distribution Width SD 48.9 fl (35.1-43.9); Red Blood Count 3.76 M/mm3 (4.2-5.4); White Blood Count 12.4 K/mm3 (4.4-11.0)
[2022-03-16] MEDS: Gabapentin 400 MG Capsule 800 MG PO ×3 (06:08→21:03)
[2022-03-16 06:31] LABS: Anion Gap 5 (5-15); BUN 8 mg/dL (7-18); BUN/Creat Ratio 11.6 RATIO (10-20); Calcium,Total 8.5 mg/dL (8.5-10.1); Chloride 108 mmol/L (98-107); Creatinine, Serum 0.69 mg/dL (0.55-1.02); EST Glomerular Filtration Rate 92 mL/min (>60); Est Glom Filt Rate - Afr Amer 111 mL/min (>60); Estimated Creatinine Clearance 69.93 ml/min; Glucose 98 mg/dL (74-106); Potassium 4.2 mmol/L (3.5-5.1); Sodium Level 139 mmol/L (136-145)
[2022-03-16] MEDS: Budesonide Respules 0.5 MG/2 ML AMPUL.NEB. INHALATION (06:57)
[2022-03-16] MEDS: Ipratropium/Albuterol Sulfate 3 ML AMPUL.NEB INHALATION ×2 (06:58→19:22)
[2022-03-16] MEDS: Loratadine 10 MG Tablet PO (08:11)
[2022-03-16] MEDS: Citalopram 40 MG TABLET PO ×2 (08:11→21:10)
[2022-03-16] MEDS: Tolterodine Tartrate 2 MG CAP.SA PO (08:12)
[2022-03-16] MEDS: Calcium Carb/Vitamin D 1 TABLET Tablet PO (08:13)
[2022-03-16] MEDS: Montelukast 10 MG Tablet PO (08:13)
[2022-03-16] MEDS: Pantoprazole Sodium 40 MG Tablet PO (08:13)
[2022-03-16] MEDS: Acetaminophen 325 MG Tablet 650 MG PO (08:31)
--- NOTE | 2022-03-16 09:14 | CASEMGMT ---
Social Work Living will is scanned into summary tab of E-hcart. Pt indicated has Healthcare POA, who is Joel Ladd and Lam Balderas, but is not able to bring it in. AYALA Preston
--- NOTE | 2022-03-16 10:00 | CASEMGMT ---
CÉSAR MICHEL Face to Face with patient for initial transition planning/care coordination assessment. CÉSAR MICHEL introduced self and role at [facility]. Patient lying in bed, alert and oriented. Patient willing to participate in assessment and is able to answer all questions appropriately. Care providers, pharmacy, and demographics verified. Patient wishes to discharge home, denies need for home health at this time. Patient states she has no further needs or concerns at this time. CM to follow for discharge planning needs that may arise. PCP: Sanna Specialists: Jimi, go go dancer; Keaton, surgeon Preferred Pharmacy: [facility] Insurance: [employer] Prescription Benefit: yes Living Will/HPOA: yes, Joel Ladd LNOK: Living Arrangements: Patient lives with in a single story home with ramp to enter. Patient states she is independent at home for self care. Transportation: DME/HHC: Patient states she has shower chair, raised toilet, rollator, wheelchair, grab bars, BP cuff, pulse ox, nebulizer, NIV, and home oxygen with portability through [facility] at 6lpm. CÉSAR MICHEL called and verified oxygen order with [facility] and order is for 6lpm continuously. Patient states her PCP sent a referral to Palliative [facility] but she has not heard from them. CÉSAR MICHEL called and left message with [facility] to confirm referral, awaiting call back. Disposition Plan: Patient to discharge home with family support and follow-up plans in place. Yolanda FONTENOT, RN, CM
--- NOTE | 2022-03-16 10:44 | EX.PCM.CONCC ---
Assessment & Plan Assessment/Plan (1) Bilateral pneumonia: (2) Cough with hemoptysis: (3) Pulmonary hypertension: (4) Smoking greater than 30 pack years: (5) Bronchiectasis: (6) Chronic respiratory failure with hypoxia: (7) Obstructive sleep apnea syndrome: PLAN: Plan RECOMMENDATIONS: 1. Add empiric steroids to current antibiotics 2. Wean supplemental oxygen as tolerated 3. Possible bronchoscopy if not improving in the next 24 to 48 hours 4. Continue BiPAP with sleep 5. Obtain sputum culture 6. Out of bed as tolerated. Continue pulmonary toileting measures IMPRESSIONS: 1. Bilateral upper lobe pneumonia in the setting of chronic hypoxic respiratory failure and COPD Unclear etiology at this time. Patient does not have risk factors for tuberculosis. Would obtain a sputum culture. Previous cultures were not significant. Cannot exclude an element of aspiration during EGD given hypoxic issues. Patient has interstitial thickening of both upper lobes consistent with an atypical pneumonia. Upper lobe aspiration is rare, but in the sedated state this could be possible. Patient does have hilar adenopathy of unclear significance. Will continue antibiotics. Add steroids given previous bronchial reactivity. Aggressive pulmonary toileting and bronchodilators will also be helpful. If patient is not improving in the next 24 to 48 hours, bronchoscopy could be attempted for BAL. We will hold on vasculitis work-up at this time unless patient fails to improve. Given patient's concomitant bronchiectasis, multidrug-resistant organisms would be a possibility, but have not been cultured previously. Obtain sputum culture. No indication for transfer to the intensive care unit at this time. 2. Iron deficiency anemia/hemoptysis GI work-up is ongoing. Patient's EGD was not suggestive of an etiology, but it appears as though this was an abbreviated exam secondary to hypoxia. May need to readdress in the future. Patient does have some anemia at this time, but it is unclear that this would manifest at this low presenting symptoms. Although hemoptysis is new, it is unlikely that this led to the decreased blood counts. Vasculitis would be a concern, but this could be evaluated as an outpatient. 3. Morbid obesity/tobacco abuse/hyperlipidemia/ALIYA Complicates care, management, recovery and prognosis. Patient should be continued on baseline CPAP settings of 16 cm of water with 2 L/min bleed. Smoking cessation was once again discussed. HPI Consult Data Date of Consult: 03/16/22 HPI Narrative Reason for Consultation: Hemoptysis HPI Narrative: DEVON DOBBINS is a 61 F, with past medical history listed below, who presents to [facility] on 03/15/2022 secondary to progressive shortness of breath and hemoptysis. Patient reportedly had endoscopy scheduled for March 10 secondary to iron deficiency anemia. Patient is well-known to me from the outpatient office and has COPD with chronic hypoxic respiratory failure and ALIYA. Patient reportedly stated that after her procedure she started to have worsening shortness of breath and cough. Patient then started to develop hemoptysis. Patient did not report any epistaxis, melena or hematochezia. Patient did not have any orthostatic symptoms. Patient is not currently on any anticoagulants or steroids, but has had multiple exacerbations in the last 6 months. In the ER, patient was afebrile, but tachypneic at 20 breaths/min. Patient was normotensive, but was requiring 4 L to maintain saturations. Laboratory work-up showed a leukocytosis of 13.7 with a hemoglobin of 10.5 and platelets of 394. Patient's D-dimer was slightly elevated, but chemistry was relatively unremarkable except for an elevated bicarbonate of 26. Lactate was within normal limits and UA was unremarkable. Chest x-ray showed chronic interstitial changes with possible right upper lobe infiltrate. Patient subsequently had a CTA of the chest showing interstitial infiltrates of bilateral upper lobes. Patient was given antibiotics and admitted to the hospital for failure of outpatient therapy. Since admission, patient feels subjectively unchanged compared to previous. Patient states that she has had significant blood in her sputum for the past week. Patient describes this as streaks of bright red blood. Patient estimates that she could have filled up a glass with secretions over the last week. Patient denies any noxious exposure. Patient does not have any TB risk factors. Patient denies any recent travel. Patient is not aware of any fevers, but has had generalized body aches. Patient states that she was told that she almost during the endoscopy. Patient is not aware of any aspirations, but states that she had desaturated shortly after being sedated. Review of the anesthesia record shows patient did have EGD completed, but not colonoscopy. Review of systems otherwise negative from a constitutional, HEENT, respiratory, cardiovascular, GI, genitourinary, musculoskeletal, skin, neurologic, psychiatric and hematologic system unless stated above. [facility] Medical History Abnormal colonoscopy Acute asthma Anxiety Anxiety Arthritis Back pain Bilateral headaches Blood clot in vein Cancer Cardiology follow-up encounter Carpal tunnel syndrome Chronic cough Chronic respiratory failure with hypoxia COPD (chronic obstructive pulmonary disease) Difficulty swallowing DVT (deep venous thrombosis) Easy bruising Emphysema, unspecified Environmental allergies Gastric reflux GERD (gastroesophageal reflux disease) Hirsutism History of cancer of vulva History of edema History of irregular heartbeat History of stress test Hx of colon cancer, stage I Hyperhidrosis Hyperlipidemia Hypertension IBS (irritable bowel syndrome) Low iron Morbid obesity Nicotine dependence Nonobstructive atherosclerosis of coronary artery Nonrheumatic mitral (valve) insufficiency Normal echocardiogram Obstructive sleep apnea syndrome On home oxygen therapy Pain in left lower leg Radicular low back pain Recurrent herpes simplex Seasonal allergies Segmental and somatic dysfunction of cervical region Segmental and somatic dysfunction of lumbar region Segmental and somatic dysfunction of pelvic region Segmental and somatic dysfunction of thoracic region Sleep apnea Smoker Stage 2 moderate COPD by GOLD classification Thyroid disease TIA (transient ischemic attack) Urinary incontinence Ventilator dependent Walker as ambulation aid Wears glasses Home Medications valacyclovir 500 mg tablet 500 mg PO QHS erika sores 01/03/20 [History Last Taken 03/14/22] montelukast 10 mg tablet 10 mg PO QHS allergies 02/27/20 [History Last Taken 03/14/22] citalopram 20 mg tablet (Celexa) 40 mg PO QHS depression 06/30/20 [History Last Taken 03/14/22] gabapentin 400 mg capsule 800 mg PO TID fibromyalgia 07/29/20 [History Last Taken 03/15/22] alendronate 70 mg tablet (Fosamax) 70 mg PO CORREA osteoporosis 09/09/20 [History Last Taken 03/14/22] calcium carb,cit 300 mg-D3 200 unit-min no.34-genistein 13.5 mg tablet (Citracal Plus Bone Density Builder) 1 tablet PO DAILY vitamin 10/30/20 [History Last Taken 03/15/22] Cbd 50 ml PO/SL QHS muscle cramps 01/20/21 [History Last Taken 03/14/22] clobetasol 0.05 % topical ointment 1 applic topical QHS PRN Itching 01/20/21 [History Last Taken Unknown] loratadine 10 mg tablet (Claritin) 10 mg PO DAILY allergies 01/20/21 [History Last Taken 03/15/22] tiotropium 2.5 mcg-olodaterol 2.5 mcg/actuation mist for inhalation (Stiolto Respimat) 2 inh inhalation DAILY #4 grams 04/21/21 [Rx Last Taken Unknown] ipratropium 0.5 mg-albuterol 3 mg (2.5 mg base)/3 mL nebulization soln 3 ml inhalation Q4H PRN shortness of breath or wheezing #180 mL 08/10/21 [Rx Last Taken Unknown] lisinopril 10 mg tablet 10 mg PO QHS blood pressure 10/21/21 [History Last Taken 03/14/22] prazosin 2 mg capsule 2 mg PO QHS blood pressure 10/21/21 [History Last Taken 03/14/22] rosuvastatin 20 mg tablet (Crestor) 20 mg PO QHS cholesterol 10/21/21 [History Last Taken 03/14/22] benzonatate 200 mg capsule 200 mg PO TID PRN cough #90 caps 12/11/21 [Rx Last Taken Unknown] fluticasone propionate 220 mcg/actuation HFA aerosol inhaler (Flovent HFA) 2 inh inhalation BID #12 grams 12/11/21 [Rx Last Taken 03/15/22] spacer #1 ea 12/11/21 [Rx Last Taken Unknown] esomeprazole magnesium 40 mg capsule,delayed release 40 mg PO DAILY #30 caps 01/20/22 [Rx Last Taken 03/15/22] PEP device #1 ea 02/25/22 [Rx Last Taken Unknown] docusate sodium 100 mg capsule (Stool Softener) 100 mg PO DAILY constipation 03/08/22 [History Last Taken 03/15/22] iron-vitamin B complex 50 mg-0.4 mg tablet 1 tab PO DAILY supplement 03/08/22 [History Last Taken 03/15/22] oxybutynin chloride 5 mg tablet,extended release 24 hr (Ditropan XL) 5 mg PO DAILY bladder 03/08/22 [History Last Taken 03/15/22] lorazepam 0.5 mg tablet (Ativan) 0.5 mg PO TID PRN Anxiety 03/15/22 [History Last Taken Unknown] cholecalciferol (vitamin D3) 125 mcg (5,000 unit) tablet (Vitamin D3) 125 mcg PO DAILY 03/16/22 [History Last Taken Unknown] famotidine 20 mg tablet 20 mg PO BIDCM GERD 03/16/22 [History Last Taken 03/15/22] Allergy/AdvReac Type Severity Reaction Status Date / Time aloe vera Allergy Other Verified 03/15/22 21:23 doxycycline Allergy Other Verified 03/15/22 21:23 hydrocodone bitartrate Allergy Upset Verified 03/15/22 21:23 [From Vicodin] Stomach oxycodone HCl [From Percocet] Allergy Other Verified 03/15/22 21:23 propoxyphene HCl Allergy Vomiting Verified 03/15/22 21:23 [From Darvon] levofloxacin [From Levaquin] AdvReac Diarrhea Verified 03/15/22 21:23 Penicillins AdvReac yeast Verified 03/15/22 21:23 infection Family History Brother Myocardial infarction, Onset Age: 63 Other Alcoholism Alzheimer disease Anxiety Arthritis Asthma Breast cancer Cervical cancer Colon cancer Depression Heart disease High cholesterol Lung cancer Suicidal behavior Surgical History history of bladder sling History of bladder surgery History of breast surgery History of cardiac catheterization History of carpal tunnel release History of cataract surgery History of cornea transplant History of esophagogastroduodenoscopy (EGD) (07/05/18) History of herniorrhaphy (12/2019) History of left heart catheterization History of lumpectomy of both breasts History of nasal septoplasty History of partial hysterectomy History of right and left heart catheterization (09/22/20) Hx of appendectomy Hx of hand surgery Hx of hernia repair S/P colonoscopy (07/05/18) S/P hernia repair Social History household members: spouse Smoking Status: Current every day smoker tobacco type: cigarettes quit status: not considering quitting alcohol intake: never substance use type: does not use caffeine: Yes what type of physical activity do you participate in: none seatbelt use: always do you feel safe at home: Yes additional social history: - Joel Llanos See HPI Physical Exam Const alert, oriented x3 and no apparent distress General Appearance: cooperative and well developed; Negative for lethargic or ill appearing Nutritional Appearance: morbidly obese HEENT normocephalic, head/scalp atraumatic and moist oral mucous membranes HEENT Narrative: Mallampati 3 Eyes PERRL and EOMs intact bilaterally Neck full ROM and no lymphadenopathy Chest inspection of chest normal Resp Effort and Inspection: able to speak in complete sentences; Negative for actively coughing or uses accessory muscles Auscultation: diminished lung sounds; Negative for rales, rhonchi or wheezes Percussion: Negative for dullness Cardio regular rate, regular rhythm, S1 normal heart sound, S2 normal heart sound, no murmurs, no rub and no gallops GI normal to inspection, nondistended, normoactive bowel sounds no CVA tenderness Extremity General Extremity: edema bilateral (1+ bilateral) lower extremity; Negative for clubbing Skin no rashes or lesions noted Neuro oriented x3, CN's II-XII intact bilaterally, moves all extremities and no focal motor deficits Psych cooperative and affect normal Medical Records Data Medical records narrative: Last pulmonary function test was completed in 2020 showing an FEV1 of 67% with bronchial reactivity indicating COPD/asthma overlap syndrome. Patient did have hyperinflation with air trapping noted. Lab / Micro Data Attestation: I reviewed the patient's lab results. Result Diagrams: 03/16/22 05:51 03/16/22 05:51 Labs: Laboratory Results - last 24 hr 03/15/22 21:20: WBC 13.7 H, RBC 3.79 L, Hgb 10.5 L, Hct 33.3 L, MCV 87.9, MCH 27.7, MCHC 31.5 L, RDW Std Deviation 48.8 H, RDW Coeff of Kayla 15.4 H, Plt Count 394, MPV 8.6, Immature Gran % (Auto) 0.700, Neut % (Auto) 77.6 H, Lymph % (Auto) 13.2 L, [place] % (Auto) 7.0, Eos % (Auto) 1.2, Baso % (Auto) 0.3, Absolute Neuts (auto) 10.7 H, Absolute Lymphs (auto) 1.81, Nucleated RBC % 0 03/15/22 21:20: D-Dimer Quant (PE/DVT) 0.70 H* 03/15/22 21:20: Sodium 138, Potassium 4.0, Chloride 107, Carbon Dioxide 26.0, Anion Gap 5, BUN 8, Creatinine 0.72, Estim Creat Clear Calc 61.13, Est GFR (MDRD) Af Amer 105, Est GFR (MDRD) Non-Af 87, BUN/Creatinine Ratio 11.1, Glucose 94, Calcium 8.8, Total Bilirubin 0.90, AST 10 L, ALT 16, Alkaline Phosphatase 127 H, Total Protein 7.5, Albumin 3.3, Globulin 4.2, Albumin/Globulin Ratio 0.8 L 03/15/22 21:20: Lactic Acid 0.7 03/15/22 22:25: Urine Color Yellow, Urine Clarity Sl. Cloudy, Urine pH 7.0, Ur Specific [place] 1.005, Urine Protein Negative, Urine Glucose (UA) Normal, Urine Ketones Negative, Urine Occult Blood Negative, Urine Nitrite Negative, Urine Bilirubin Negative, Urine Urobilinogen Normal, Ur Leukocyte Esterase Negative, Urine RBC 0 SEEN, Urine WBC 0 SEEN, Ur Squamous Epith Cells 0-5 SEEN, Urine Bacteria 0 SEEN, Urine Mucus 0 SEEN 03/16/22 05:51: WBC 12.4 H, RBC 3.76 L, Hgb 10.4 L, Hct 32.9 L, MCV 87.5, MCH 27.7, MCHC 31.6 L, RDW Std Deviation 48.9 H, RDW Coeff of Kayla 15.4 H, Plt Count 397, MPV 8.7, Immature Gran % (Auto) 0.700, Neut % (Auto) 73.8 H, Lymph % (Auto) 15.5 L, [place] % (Auto) 8.5, Eos % (Auto) 1.2, Baso % (Auto) 0.3, Absolute Neuts (auto) 9.1 H, Absolute Lymphs (auto) 1.91, Nucleated RBC % 0 03/16/22 05:51: Sodium 139, Potassium 4.2, Chloride 108 H, Carbon Dioxide 26.0, Anion Gap 5, BUN 8, Creatinine 0.69, Estim Creat Clear Calc 69.93, Est GFR (MDRD) Af Amer 111, Est GFR (MDRD) Non-Af 92, BUN/Creatinine Ratio 11.6, Glucose 98, Calcium 8.5 Radiology Impression Chest X-Ray 03/15/22 21:41 IMPRESSION: Findings of pulmonary emphysema and chronic interstitial fibrotic changes are again identified. Possible minimal pneumonia in the right upper lobe. Electronically Signed: Magdiel Cruz MD at 22:09 EDT , Chest CTA 03/15/22 22:09 IMPRESSION: Negative for PE. Increasing interstitial thickening in both upper lobes with development of patchy airspace disease within the upper lobes and lower lobe superior segments, secondary to pulmonary infection versus edema. Associated bilateral hilar adenopathy. Electronically Signed: Magdiel Cruz MD at 0:01 EDT , Charges/Coding Visit Charges Inpatient E&M: 44379 Init Hosp L3
--- NOTE | 2022-03-16 11:46 | PN.HOSP_ITS ---
Subjective Subjective Follow-up on hemoptysis/pneumonia: Patient was seen and examined. She remains on his 6 L of oxygen. She did have some hemoptysis this morning. Denies any fever or chills. Objective Data Objective Data Vital Signs: Vital Signs Temp Pulse Resp BP Pulse Ox O2 Del Method O2 Flow Rate 98.3 F 79 17 108/63 99 Nasal Cannula 6 03/16/22 07:20 03/16/22 07:20 03/16/22 07:20 03/16/22 07:20 03/16/22 07:20 03/16/22 09:30 03/16/22 09:30 FiO2 40 03/16/22 01:55 Oxygen Flow Rate (L/min) 6 Oxygen Delivery Method Nasal Cannula Weight: 105.4 kg Body Mass Index (BMI) 41.1 Intake & Output: Intake and Output for Last 24 Hours 03/14/22 03/15/22 03/16/22 23:59 23:59 23:59 Intake Total 417 / 417 Balance 417 / 417 Lab / Micro Data Result Diagrams: 03/16/22 05:51 03/16/22 05:51 Labs: Laboratory Results - last 24 hr 03/15/22 21:20: WBC 13.7 H, RBC 3.79 L, Hgb 10.5 L, Hct 33.3 L, MCV 87.9, MCH 27.7, MCHC 31.5 L, RDW Std Deviation 48.8 H, RDW Coeff of Kayla 15.4 H, Plt Count 394, MPV 8.6, Immature Gran % (Auto) 0.700, Neut % (Auto) 77.6 H, Lymph % (Auto) 13.2 L, [place] % (Auto) 7.0, Eos % (Auto) 1.2, Baso % (Auto) 0.3, Absolute Neuts (auto) 10.7 H, Absolute Lymphs (auto) 1.81, Nucleated RBC % 0 03/15/22 21:20: D-Dimer Quant (PE/DVT) 0.70 H* 03/15/22 21:20: Sodium 138, Potassium 4.0, Chloride 107, Carbon Dioxide 26.0, Anion Gap 5, BUN 8, Creatinine 0.72, Estim Creat Clear Calc 61.13, Est GFR (MDRD) Af Amer 105, Est GFR (MDRD) Non-Af 87, BUN/Creatinine Ratio 11.1, Glucose 94, Calcium 8.8, Total Bilirubin 0.90, AST 10 L, ALT 16, Alkaline Phosphatase 127 H, Total Protein 7.5, Albumin 3.3, Globulin 4.2, Albumin/Globulin Ratio 0.8 L 03/15/22 21:20: Lactic Acid 0.7 03/15/22 22:25: Urine Color Yellow, Urine Clarity Sl. Cloudy, Urine pH 7.0, Ur Specific [place] 1.005, Urine Protein Negative, Urine Glucose (UA) Normal, Urine Ketones Negative, Urine Occult Blood Negative, Urine Nitrite Negative, Urine Bilirubin Negative, Urine Urobilinogen Normal, Ur Leukocyte Esterase Negative, Urine RBC 0 SEEN, Urine WBC 0 SEEN, Ur Squamous Epith Cells 0-5 SEEN, Urine Bacteria 0 SEEN, Urine Mucus 0 SEEN 03/16/22 05:51: WBC 12.4 H, RBC 3.76 L, Hgb 10.4 L, Hct 32.9 L, MCV 87.5, MCH 27.7, MCHC 31.6 L, RDW Std Deviation 48.9 H, RDW Coeff of Kayla 15.4 H, Plt Count 397, MPV 8.7, Immature Gran % (Auto) 0.700, Neut % (Auto) 73.8 H, Lymph % (Auto) 15.5 L, [place] % (Auto) 8.5, Eos % (Auto) 1.2, Baso % (Auto) 0.3, Absolute Neuts (auto) 9.1 H, Absolute Lymphs (auto) 1.91, Nucleated RBC % 0 03/16/22 05:51: Sodium 139, Potassium 4.2, Chloride 108 H, Carbon Dioxide 26.0, Anion Gap 5, BUN 8, Creatinine 0.69, Estim Creat Clear Calc 69.93, Est GFR (MDRD) Af Amer 111, Est GFR (MDRD) Non-Af 92, BUN/Creatinine Ratio 11.6, Glucose 98, Calcium 8.5 Radiography Diagnostic Testing: Radiology Impression Chest X-Ray 03/15/22 21:41 IMPRESSION: Findings of pulmonary emphysema and chronic interstitial fibrotic changes are again identified. Possible minimal pneumonia in the right upper lobe. Electronically Signed: Magdiel Cruz MD at 22:09 EDT , Chest CTA 03/15/22 22:09 IMPRESSION: Negative for PE. Increasing interstitial thickening in both upper lobes with development of patchy airspace disease within the upper lobes and lower lobe superior segments, secondary to pulmonary infection versus edema. Associated bilateral hilar adenopathy. Electronically Signed: Magdiel Cruz MD at 0:01 EDT , Physical Exam Narrative Physical exam: General: Alert, Oriented x3, Cooperative, comfortable, remains on 6 L of oxygen HEENT: Atraumatic Oral: Moist Mucosa Neck: Supple Lungs: Diminished to auscultation Cardiovascular: HS I+II, regular, no murmurs Abdomen: Bowel Sounds Present, Soft, Non Tender Extremities: No edema Skin: No rashes, No breakdown Neurological: Grossly intact Psych/Mental Status: Appropriate Assessment & Plan Assessment/Plan (1) Bilateral pneumonia: (2) Chronic respiratory failure with hypoxia: (3) Stage 2 moderate COPD by GOLD classification: (4) Cough with hemoptysis: PLAN: Plan 1. Acute hemoptysis likely secondary to bilateral pneumonia/probable aspiration pneumonia Sputum cultures showed mixed respiratory gabino Chest ray showed pulmonary emphysema and chronic interstitial fibrotic changes. Possible mild pneumonia in the right upper lobe. CT of the chest showed increased interstitial thickening in both upper lobes with development of patchy airspace disease, bilateral hilar lymphadenopathy. Continue on IV Unasyn and azithromycin Pulmonology consult 2. Chronic hypoxic respiratory failure secondary to COPD, patient remains on 6 L of oxygen Continue breathing treatment as needed 3. Nicotine dependence, advised to quit, refused patch 4. Hypertension hyperlipidemia: Continue home statin regimen, controlled Continue on statin, lisinopril 5. DVT PPx- SCDs Charges/Coding Visit Charges Inpatient E&M: 15848 Subs Hosp L2
--- NOTE | 2022-03-16 14:28 | CASEMGMT ---
CÉSAR MICHEL received call back from [facility]. Patient does not have any recent referrals. CÉSAR MICHEL updated hospitalist, order received for Palliative consult. CÉSAR MICHEL sent referral to [facility]. CÉSAR MICHEL received response from Ella at [facility] and they will send liaison to [facility] to see patient tomorrow at 10. CÉSAR MICHEL updated MS3 CM and patient. Patient had no further questions or concerns at this time.
[2022-03-16] MEDS: Doxazosin 1 MG Tablet 1.5 MG PO (21:09)
[2022-03-16] MEDS: Lisinopril 10 MG Tablet PO (21:09)
[2022-03-16] MEDS: Acyclovir 200 MG Capsule 400 MG PO (21:10)
[2022-03-16] MEDS: Atorvastatin Calcium 40 MG Tablet PO (21:10)
[2022-03-17 01:20] VITALS: O2SAT 96
[2022-03-17 03:00] VITALS: BP 161/61; PULSE 93; RESP 18; TEMP 36.6; O2SAT 97
[2022-03-17] MEDS: Acetaminophen 325 MG Tablet 650 MG PO (04:46)
[2022-03-17] MEDS: Benzonatate 100 MG Capsule 200 MG PO (04:46)
[2022-03-17 06:23] LABS: Absolute Lymphocyte Count 0.88 X10^3/uL (0.83-4.51); Basophil# 0.02 X10^3/uL; Basophil% 0.1 % (0-1); Hematocrit 32.3 % (37-47); Hemoglobin 10.4 g/dL (12.0-15.0); Lymphocyte # 0.88 X10^3/ul (0.83-4.51); Lymphocyte % 5.7 % (19-41); Mean Corp Hgb Conc 32.2 g/dL (32-36); Mean Corpuscular Hgb 28.4 pg (27.0-32.0); Mean Corpuscular Volume 88.3 fL (81-99); Mean Platelet Vol. 8.9 fl (6.2-12.0); Monocyte% 3.2 % (0-10); NRBC Flagged by Analyzer 0 % (0-5); Neutrophil # 13.96 X10^3/uL (2.7-7.7); Platelet Count 380 K/mm3 (150-450); Red Blood Count 3.66 M/mm3 (4.2-5.4); White Blood Count 15.5 K/mm3 (4.4-11.0)
[2022-03-17] MEDS: Gabapentin 400 MG Capsule 800 MG PO (06:39)
[2022-03-17] MEDS: 0.9% Saline Lock 10 ML Syringe IV (06:40)
[2022-03-17 06:45] LABS: Anion Gap 3 (5-15); BUN 11 mg/dL (7-18); BUN/Creat Ratio 16.8 RATIO (10-20); Calcium,Total 8.6 mg/dL (8.5-10.1); Chloride 110 mmol/L (98-107); Creatinine, Serum 0.66 mg/dL (0.55-1.02); EST Glomerular Filtration Rate 97 mL/min (>60); Est Glom Filt Rate - Afr Amer 118 mL/min (>60); Estimated Creatinine Clearance 73.11 ml/min; Glucose 161 mg/dL (74-106); Sodium Level 139 mmol/L (136-145)
[2022-03-17 07:02] VITALS: PULSE 74; RESP 16; O2SAT 98
[2022-03-17] MEDS: Ipratropium/Albuterol Sulfate 3 ML AMPUL.NEB INHALATION (07:02)
[2022-03-17] MEDS: Calcium Carb/Vitamin D 1 TABLET Tablet PO (08:17)
[2022-03-17] MEDS: Tolterodine Tartrate 2 MG CAP.SA PO (08:17)
[2022-03-17] MEDS: Loratadine 10 MG Tablet PO (08:17)
--- NOTE | 2022-03-17 08:17 | PN.CC_ITS ---
Assessment & Plan Assessment/Plan (1) Bilateral pneumonia: (2) Cough with hemoptysis: (3) Pulmonary hypertension: (4) Smoking greater than 30 pack years: (5) Bronchiectasis: (6) Chronic respiratory failure with hypoxia: (7) Obstructive sleep apnea syndrome: PLAN: Plan RECOMMENDATIONS: 1. Continue empiric steroids and current antibiotics 2. Wean supplemental oxygen as tolerated 3. May not require bronchoscopy 4. Continue home CPAP with sleep 5. Await sputum culture 6. Out of bed as tolerated. Continue pulmonary toileting measures 7. Potential discharge later today pending ambulation challenge IMPRESSIONS: 1. Bilateral upper lobe pneumonia in the setting of chronic hypoxic respiratory failure and COPD Unclear etiology at this time. Patient does not have risk factors for tuberculosis. Would obtain a sputum culture. Previous cultures were not significant. Cannot exclude an element of aspiration during EGD given hypoxic issues. Patient has interstitial thickening of both upper lobes consistent with an atypical pneumonia. Upper lobe aspiration is rare, but in the sedated state this could be possible. Patient does have hilar adenopathy of unclear significance. Will continue antibiotics and steroids. Aggressive pulmonary toileting and bronchodilators will also be helpful. Patient appears to be improving, so bronchoscopy may not be necessary. We will hold on vasculitis work-up at this time unless patient fails to improve. Given patient's concomitant bronchiectasis, multidrug-resistant organisms would be a possibility, but have not been cultured previously. Await sputum culture. No indication for transfer to the intensive care unit at this time. 2. Iron deficiency anemia/hemoptysis GI work-up is ongoing. Patient's EGD was not suggestive of an etiology, but it appears as though this was an abbreviated exam secondary to hypoxia. May need to readdress in the future. Patient does have some anemia at this time, but it is unclear that this would manifest at this low presenting symptoms. H&H has remained stable. Although hemoptysis is new, it is unlikely that this led to the decreased blood counts. Vasculitis would be a concern, but this could be evaluated as an outpatient. 3. Morbid obesity/tobacco abuse/hyperlipidemia/ALIYA Complicates care, management, recovery and prognosis. Patient should be continued on baseline CPAP settings of 16 cm of water with 2 L/min bleed. Smoking cessation was once again discussed. Subjective Subjective Patient did okay overnight. No acute issues were reported. Patient did not use CPAP as she was not able to use her home mask. Patient states her will be bringing in her home CPAP later today. Patient subjectively feels 40% better but is still very weak. Patient is unclear how much of this is related to not being able to wear her CPAP overnight. Patient did report a cough interrupted sleep frequently. Objective Data Objective Data Vital Signs: Vital Signs Temp Pulse Resp BP Pulse Ox O2 Del Method O2 Flow Rate 36.6 C 93 18 161/61 H 97 Nasal Cannula 6 03/17/22 03:00 03/17/22 03:00 03/17/22 03:00 03/17/22 03:00 03/17/22 03:00 03/17/22 03:00 03/17/22 03:00 FiO2 40 03/16/22 22:45 Oxygen Flow Rate (L/min) 6 Oxygen Delivery Method Nasal Cannula Weight: 105.4 kg Body Mass Index (BMI) 41.1 Intake & Output: Intake and Output for Last 24 Hours 03/15/22 03/16/22 03/17/22 23:59 23:59 23:59 Intake Total 1139.5 / 1139.5 112 / 112 Balance 1139.5 / 1139.5 112 / 112 Lab / Micro Data Attestation: I reviewed the patient's lab results. Result Diagrams: 03/17/22 06:15 03/17/22 06:15 Labs: Laboratory Results - last 24 hr 03/17/22 06:15: WBC 15.5 H, RBC 3.66 L, Hgb 10.4 L, Hct 32.3 L, MCV 88.3, MCH 28.4, MCHC 32.2, RDW Std Deviation 48.0 H, RDW Coeff of Kayla 15.0 H, Plt Count 380, MPV 8.9, Immature Gran % (Auto) 1.000 H, Neut % (Auto) 90.0 H, Lymph % (Auto) 5.7 L, [place] % (Auto) 3.2, Eos % (Auto) 0.0, Baso % (Auto) 0.1, Absolute Neuts (auto) 14.0 H, Absolute Lymphs (auto) 0.88, Nucleated RBC % 0 03/17/22 06:15: Sodium 139, Potassium 5.0, Chloride 110 H, Carbon Dioxide 26.0, Anion Gap 3 L, BUN 11, Creatinine 0.66, Estim Creat Clear Calc 73.11, Est GFR (MDRD) Af Amer 118, Est GFR (MDRD) Non-Af 97, BUN/Creatinine Ratio 16.8, Glucose 161 H, Calcium 8.6 Physical Exam Const alert, oriented x3 and no apparent distress General Appearance: cooperative and well developed; Negative for lethargic or ill appearing Nutritional Appearance: morbidly obese HEENT normocephalic, head/scalp atraumatic and moist oral mucous membranes Eyes PERRL and EOMs intact bilaterally Neck full ROM and no lymphadenopathy Chest inspection of chest normal Resp Effort and Inspection: able to speak in complete sentences; Negative for actively coughing or uses accessory muscles Auscultation: diminished lung sounds; Negative for rales, rhonchi or wheezes Percussion: Negative for dullness Cardio regular rate, regular rhythm, S1 normal heart sound, S2 normal heart sound, no murmurs, no rub and no gallops GI normal to inspection, nondistended, normoactive bowel sounds no CVA tenderness Extremity General Extremity: edema bilateral (1+ bilateral) lower extremity; Negative for clubbing Skin no rashes or lesions noted Neuro oriented x3, CN's II-XII intact bilaterally, moves all extremities and no focal motor deficits Psych cooperative and affect normal Charges/Coding Visit Charges Inpatient E&M: 85137 Subs Hosp L2
[2022-03-17] MEDS: Pantoprazole Sodium 40 MG Tablet PO (08:18)
[2022-03-17] MEDS: Famotidine 20 MG Tablet PO (08:18)
[2022-03-17 09:00] VITALS: BP 112/65; PULSE 76; RESP 18; TEMP 36.6; O2SAT 94
[2022-03-17 09:02] VITALS: O2SAT 93
[2022-03-17] MEDS: guaiFENesin 1,200 MG Tablet 1200 MG PO (10:25)
[2022-03-17 11:09] VITALS: O2SAT 88; O2SAT 93; O2SAT 95
--- NOTE | 2022-03-17 11:31 | CASEMGMT ---
Pt did not require increased oxygen needs. Pt did sign with Palliative Care this morning per liaison. Plan to dc home with [facility] as well.
--- NOTE | 2022-03-17 12:46 | PCM.DC.SUM ---
Providers Date of Admission: 03/16/22 Date of Discharge: 03/17/22 Primary Care Physician: Dr. Simone Isidro MD Consultations 03/16/22 09:26 Consult: [employer] / Pulmonary Medicine Routine Consulting Provider: Perfecto Krause Reason for Consult: Hemoptysis EMERGENT Consult: No MD Notified: Yes Date Notified: 03/16/22 Time Notified: 10:19 Method of Notification: Verbal Reason For Visit: PNEUMONIA Diagnosis Discharge Diagnosis (1) Bilateral pneumonia: Status: Acute Code(s): J18.9 - Pneumonia, unspecified organism (2) Cough with hemoptysis: Status: Acute Code(s): R04.2 - Hemoptysis (3) Pulmonary hypertension: Status: Chronic Code(s): I27.20 - Pulmonary hypertension, unspecified (4) Smoking greater than 30 pack years: Status: Chronic Code(s): F17.210 - Nicotine dependence, cigarettes, uncomplicated (5) Bronchiectasis: Status: Acute Code(s): J47.9 - Bronchiectasis, uncomplicated (6) Chronic respiratory failure with hypoxia: Status: Chronic Code(s): J96.11 - Chronic respiratory failure with hypoxia (7) Obstructive sleep apnea syndrome: Status: Chronic Code(s): G47.33 - Obstructive sleep apnea (adult) (pediatric) Plan 1. Acute hemoptysis likely secondary to bilateral pneumonia/probable aspiration pneumonia 2. Chronic hypoxic respiratory failure secondary to COPD 3. Nicotine dependence 4. Hypertension 5. Hyperlipidemia Medications at Discharge Home Medications valacyclovir 500 mg tablet 500 mg PO QHS erika sores 01/03/20 montelukast 10 mg tablet 10 mg PO QHS allergies 02/27/20 citalopram 20 mg tablet (Celexa) 40 mg PO QHS depression 06/30/20 gabapentin 400 mg capsule 800 mg PO TID fibromyalgia 07/29/20 alendronate 70 mg tablet (Fosamax) 70 mg PO CORREA osteoporosis 09/09/20 calcium carb,cit 300 mg-D3 200 unit-min no.34-genistein 13.5 mg tablet (Citracal Plus Bone Density Builder) 1 tablet PO DAILY vitamin 10/30/20 Cbd 50 ml PO/SL QHS muscle cramps 01/20/21 clobetasol 0.05 % topical ointment 1 applic topical QHS PRN Itching 01/20/21 loratadine 10 mg tablet (Claritin) 10 mg PO DAILY allergies 01/20/21 tiotropium 2.5 mcg-olodaterol 2.5 mcg/actuation mist for inhalation (Stiolto Respimat) 2 inh inhalation DAILY #4 grams 04/21/21 ipratropium 0.5 mg-albuterol 3 mg (2.5 mg base)/3 mL nebulization soln 3 ml inhalation Q4H PRN shortness of breath or wheezing #180 mL 08/10/21 prazosin 2 mg capsule 2 mg PO QHS blood pressure 10/21/21 rosuvastatin 20 mg tablet (Crestor) 20 mg PO QHS cholesterol 10/21/21 benzonatate 200 mg capsule 200 mg PO TID PRN cough #90 caps 12/11/21 fluticasone propionate 220 mcg/actuation HFA aerosol inhaler (Flovent HFA) 2 inh inhalation BID #12 grams 12/11/21 spacer #1 ea 12/11/21 esomeprazole magnesium 40 mg capsule,delayed release 40 mg PO DAILY #30 caps 01/20/22 PEP device #1 ea 02/25/22 docusate sodium 100 mg capsule (Stool Softener) 100 mg PO DAILY constipation 03/08/22 iron-vitamin B complex 50 mg-0.4 mg tablet 1 tab PO DAILY supplement 03/08/22 oxybutynin chloride 5 mg tablet,extended release 24 hr (Ditropan XL) 5 mg PO DAILY bladder 03/08/22 lorazepam 0.5 mg tablet (Ativan) 0.5 mg PO TID PRN Anxiety 03/15/22 cholecalciferol (vitamin D3) 125 mcg (5,000 unit) tablet (Vitamin D3) 125 mcg PO DAILY 03/16/22 famotidine 20 mg tablet 20 mg PO BIDCM GERD 03/16/22 amoxicillin 500 mg-potassium clavulanate 125 mg tablet (Augmentin) 1 tab PO Q12H 8 days #16 tabs 03/17/22 guaifenesin 1,200 mg tablet, extended release 12 hr (Mucus Relief ER) 1,200 mg PO BID 7 days #14 tabs 03/17/22 lisinopril 20 mg tablet 20 mg PO QHS 30 days #30 tabs 03/17/22 prednisone 10 mg tablet See Taper PO DAILY #30 tabs 03/17/22 Hospital Course Operations None Procedures None Summary of Care Provided Minutes Spent on Discharge: 40 Hospital Course: 61-year-old female past medical history of COPD on chronic 3 L of oxygen, who comes in after an EGD done 03/10/22. Her EGD was aborted due to respiratory instability. She has since had progressive shortness of breath, yellowish sputum associated with hemoptysis. In the ED, patient's chest x-ray showed mild right upper lobe opacity. D-dimer was elevated. CTA of the chest showed patchy airspace disease within the upper lobes and lower lobe superior segment. Patient admitting WBC count 13.7. Patient was started on Unasyn and azithromycin. Sputum cultures grew normal respiratory gabino. Patient was also given fluconazole for yeast infection. Pulmonology was consulted, patient was started on IV steroids. She was discharged on Augmentin and prednisone taper. She will follow-up with pulmonology in the outpatient. Physical Exam Narrative Physical exam: General: Alert, Oriented x3, Cooperative, comfortable, on 3 L of oxygen HEENT: Atraumatic Oral: Moist Mucosa Neck: Supple Lungs: Diminished to auscultation Cardiovascular: HS I+II, regular, no murmurs Abdomen: Bowel Sounds Present, Soft, Non Tender Extremities: No edema Skin: No rashes, No breakdown Neurological: Grossly intact Psych/Mental Status: Appropriate Weight / BMI Weight Weight: 105.4 kg Body Mass Index (BMI) 41.1 ABG / Lab / Microbiology Data Result Diagrams: 03/17/22 06:15 03/17/22 06:15 Laboratory: Laboratory Results - last 24 hr 03/17/22 06:15: WBC 15.5 H, RBC 3.66 L, Hgb 10.4 L, Hct 32.3 L, MCV 88.3, MCH 28.4, MCHC 32.2, RDW Std Deviation 48.0 H, RDW Coeff of Kayla 15.0 H, Plt Count 380, MPV 8.9, Immature Gran % (Auto) 1.000 H, Neut % (Auto) 90.0 H, Lymph % (Auto) 5.7 L, [place] % (Auto) 3.2, Eos % (Auto) 0.0, Baso % (Auto) 0.1, Absolute Neuts (auto) 14.0 H, Absolute Lymphs (auto) 0.88, Nucleated RBC % 0 03/17/22 06:15: Sodium 139, Potassium 5.0, Chloride 110 H, Carbon Dioxide 26.0, Anion Gap 3 L, BUN 11, Creatinine 0.66, Estim Creat Clear Calc 73.11, Est GFR (MDRD) Af Amer 118, Est GFR (MDRD) Non-Af 97, BUN/Creatinine Ratio 16.8, Glucose 161 H, Calcium 8.6 Microbiology: Microbiology 03/16/22 14:00 Sputum, Expectorated/Coughed Gram Stain - Final D/C Instructions Discharge Diet: Low fat / Low cholesterol and 2000 mg Sodium Diet Meaningful Use Info Meaningful Use Diagnoses (Choose all that apply): None applicable Discharge Plan Admission Admit Date/Time: 03/16/22 00:10 Primary Reason for Your Visit: Pneumonia Attending Provider: Kalpana Walker Primary Care Provider: Simone Isidro Consulting Providers: Bernard Washington ; Perfecto Krause Instructions Additional Instructions / Restrictions: Complete your antibiotics and steroid taper. Continue to use your incentive spirometer. Follow-up with your PCP within 1 week Follow-up on security sales consultant within 2 weeks. Discharge Orders/Prescriptions Prescriptions: New lisinopril 20 mg Tablet 20 mg PO QHS 30 Days Qty: 30 0RF Mucus Relief ER 1,200 mg Tablet Extended Release 12hr 1,200 mg PO BID 7 Days Qty: 14 0RF prednisone 10 mg tablet See Taper PO DAILY Qty: 30 0RF Taper: Prednisone Taper 40 mg WITH BREAKFAST for 3 Days and 0 Hour 30 mg WITH BREAKFAST for 3 Days and 0 Hour 20 mg WITH BREAKFAST for 3 Days and 0 Hour 10 mg WITH BREAKFAST for 3 Days and 0 Hour amoxicillin-pot clavulanate [Augmentin] 500-125 mg tablet 1 tab PO Q12H 8 Days Qty: 16 0RF Continued montelukast 10 mg tablet 10 mg PO QHS gabapentin 400 mg capsule 800 mg PO TID citalopram [Celexa] 20 mg tablet 40 mg PO QHS alendronate [Fosamax] 70 mg tablet 70 mg PO CORREA Citracal Plus Bone Density 300-200-13.5 mg-unit-mg tablet 1 tablet PO DAILY Stiolto Respimat 2.5-2.5 mcg/actuation mist 2 inh inhalation DAILY Qty: 4 2RF ipratropium-albuterol 0.5 mg-3 mg(2.5 mg base)/3 mL solution for nebulization 3 ml inhalation Q4H PRN (Reason: shortness of breath or wheezing) Qty: 180 3RF benzonatate 200 mg capsule 200 mg PO TID PRN (Reason: cough) Qty: 90 0RF Flovent HFA 220 mcg/actuation HFA aerosol inhaler 2 inh inhalation BID Qty: 12 6RF Rx Instructions: administer with spacer (DME) spacer See Rx Instructions .ROUTE .MEDSUPPLY Qty: 1 0RF Rx Instructions: As directed esomeprazole magnesium 40 mg capsule,delayed release(DR/EC) 40 mg PO DAILY Qty: 30 5RF valacyclovir 500 MG tablet 500 mg PO QHS Cbd 50 ml PO/SL QHS clobetasol 0.05 % ointment 1 applic TOPICAL QHS PRN (Reason: Itching) loratadine [Claritin] 10 mg Tablet 10 mg PO DAILY prazosin 2 mg Capsule 2 mg PO QHS rosuvastatin [Crestor] 20 mg Tablet 20 mg PO QHS docusate sodium [Stool Softener] 100 mg Capsule 100 mg PO DAILY iron-vitamin B complex 50-0.4 mg Tablet 1 tab PO DAILY oxybutynin chloride [Ditropan XL] 5 mg Tablet Extended Release 24hr 5 mg PO DAILY lorazepam [Ativan] 0.5 mg Tablet 0.5 mg PO TID PRN (Reason: Anxiety) famotidine 20 mg tablet 20 mg PO BIDCM cholecalciferol (vitamin D3) [Vitamin D3] 125 mcg (5,000 unit) Tablet 125 mcg PO DAILY (DME) PEP device See Rx Instructions .ROUTE .MEDSUPPLY Qty: 1 0RF Rx Instructions: with training Discontinued lisinopril 10 mg tablet 10 mg PO QHS Referrals / Follow Up: Perfecto Krause MD [Med Staff - Active Staff] - Within 2 Weeks Simone Isidro MD [Primary Care Provider] - Within 1 Week Disposition Disposition (needs filled in before D/C Order can be placed): Home, Self Care Charges/Coding Visit Charges Inpatient E&M: 70094 Disch Hosp
== END 2022-03-17 13:35 | disposition home or self-care (01) | DRG 139 ==
LOC: ED 03-16 00:12 → MS3 03-16 00:51
PROVIDERS: Internal Medicine Critical Care Medicine; Admitting Provider Hospitalist; Emergency Provider Emergency Medicine; PCP Family Medicine; Visit Provider Internal Medicine
DX: J18.9 Pneumonia, unspecified organism (principal); J47.0 Bronchiectasis with acute lower respiratory infection; I27.20 Pulmonary hypertension, unspecified; J96.11 Chronic respiratory failure with hypoxia; B37.9 Candidiasis, unspecified; J43.9 Emphysema, unspecified; E66.01 Morbid (severe) obesity due to excess calories; Z68.41 Body mass index [BMI] 40.0-44.9, adult; D50.9 Iron deficiency anemia, unspecified; I25.10 Atherosclerotic heart disease of native coronary artery without angina pectoris; G47.33 Obstructive sleep apnea (adult) (pediatric); E78.5 Hyperlipidemia, unspecified; F17.210 Nicotine dependence, cigarettes, uncomplicated; I10 Essential (primary) hypertension; R04.2 Hemoptysis; Z99.81 Dependence on supplemental oxygen; M99.02 Segmental and somatic dysfunction of thoracic region; M99.03 Segmental and somatic dysfunction of lumbar region; M99.01 Segmental and somatic dysfunction of cervical region; M99.05 Segmental and somatic dysfunction of pelvic region; Z79.899 Other long term (current) drug therapy
CPT/HCPCS: 36415; 71046; 71275; 80048; 80053; 81001; 83605; 85025; 85379; 87070; 87205; 93005; 94002; 94640; 94667; 94668; 94762; 97162; 99251; 99285; 99406; J7050; Q9967; A4216; G0463; J0295; J0696; J2405

== ENCOUNTER 2022-04-20 17:38 | Outpatient (CLI) | payer MEDICAID, SELFPAY | END 2022-04-20 23:59 | disposition home or self-care (01) | PROVIDERS: PCP Family Medicine; Visit Provider Family Medicine | DX: N39.0 Urinary tract infection, site not specified (principal) | CPT/HCPCS: 87077; 87086; 87088; 87186 ==

== ENCOUNTER → 2022-04-29 | Outpatient (CLI) | payer MEDICAID, SELFPAY | END | disposition home or self-care (01) | PROVIDERS: PCP Family Medicine; Visit Provider Family Medicine | DX: R35.0 Frequency of micturition (principal); R30.0 Dysuria | CPT/HCPCS: 87086; 87088 ==

== ENCOUNTER → 2022-05-17 | Outpatient (CLI) | payer MEDICAID, SELFPAY ==
--- NOTE | 2022-05-17 14:40 | RAD_ITS ---
STUDY: X-RAY - UNILATERAL RIBS ( RIGHT ) WITH CHEST REASON FOR EXAM: Female, 61 years old. ] Pain. No known injury. TECHNIQUE - RIBS: 4 view(s) of the ribs. TECHNIQUE - CHEST: Single PA view of the chest. COMPARISON: Comparison is made with prior chest radiograph dated 03/15/2022. FINDINGS - RIBS: Normal visualized ribs without a demonstrated fracture. FINDINGS - CHEST: Diffuse increased interstitial markings in both lungs with areas of confluence in keeping with a chronic interstitial fibrosis. This has progressed as compared to prior study. Hyperinflation. Normal size heart. Normal mediastinum and sera. There is prominence of the pulmonary hilar arteries without peripheral pulmonary vascular congestion, suggesting pulmonary hypertension. Normal visualized aortic arch and descending thoracic aorta. Normal visualized thoracic spine. Normal visualized ribs, clavicles, and shoulders. There is no demonstrated abnormality of the visualized soft tissue structures of the upper abdomen. RAD/Ribs Uni Min 3V w/PA Chest IMPRESSION: RIBS: Normal x-ray examination of the ribs. CHEST: Findings in keeping with a chronic interstitial fibrosis. Electronically Signed: Klaus Bergman MD at 15:02 EDT ,
== END | disposition home or self-care (01) ==
LOC: MTRAD 14:25
PROVIDERS: PCP Family Medicine; Visit Provider Internal Medicine Critical Care Medicine
DX: R07.9 Chest pain, unspecified (principal)
CPT/HCPCS: 71101

== ENCOUNTER → 2022-05-25 | Outpatient (CLI) | payer MEDICAID, SELFPAY ==
--- NOTE | 2022-05-25 15:54 | CT_ITS ---
STUDY: CT Chest W/O Contrast Injection 05/25/2022 5:42 PM REASON FOR EXAM: Female, 61 years old. new 8 mm nodule Individualized dose optimization techniques were used for this CT. TECHNIQUE: Transaxial imaging was performed withoutIV contrast material. COMPARISON: Mar 15 2022 10:28pm FINDINGS: There are degenerative changes of the shoulders. There is no pneumothorax. There is no demonstrated pleural abnormality. There are scattered blebs and bullae. This can be seen in pulmonary emphysema. Metallic clips in the left breast consistent for prior breast biopsy. Improvement in the overlying infiltrates prior study. Underlying chronic interstitial lung thickening. There are calcifications of the coronary arteries. Normal mediastinum. Normal hilar regions. Normal pulmonary arteries. There is atherosclerotic calcification of the aortic arch with tortuosity and elongation of the aortic arch and descending thoracic aorta. There are multi-level degenerative changes of the thoracic spine. Stable hypodensity in the liver. CT/Chest without Contrast IMPRESSION: Improvement in the overlying infiltrates since the prior study. Electronically Signed: Rashawn Beck MD at 17:46 EST ,
== END | disposition home or self-care (01) ==
PROVIDERS: PCP Family Medicine; Referring Provider Nurse Practitioner Acute Care; Visit Provider Nurse Practitioner Acute Care
DX: R91.8 Other nonspecific abnormal finding of lung field (principal)
CPT/HCPCS: 71250

== ENCOUNTER → 2022-05-27 | Outpatient (CLI) | payer MEDICAID, SELFPAY ==
--- NOTE | 2022-05-27 15:23 | RAD_ITS ---
STUDY: X-RAY - THORACIC SPINE REASON FOR EXAM: Female, 61 years old. BACK PAIN TECHNIQUE: AP and lateral view(s) of the thoracic spine were obtained. COMPARISON: None. FINDINGS: Normal kyphosis of the thoracic spine. There is no substantial scoliosis. No evidence for acute fracture or subluxation. No lytic or sclerotic bony lesions are observed. There is minor multilevel endplate spurring. The soft tissue structures are unremarkable. RAD/Thoracic Spine 2 Views IMPRESSION: Mild spondylosis. No acute fracture or other significant abnormality CT or MRI would be helpful for further evaluation Electronically Signed: Osmin Lindsay MD at 16:16 EST ,
--- NOTE | 2022-05-27 15:23 | RAD_ITS ---
STUDY: X-RAY - BILATERAL RIBS REASON FOR EXAM: Female, 61 years old. RIB PAIN TECHNIQUE: 5 view(s) of the ribs. COMPARISON: None. FINDINGS: Deformity of the left seventh and eighth ribs probably due to old healed fractures. There is no acute bone injury. Increased interstitial markings in both lungs suggesting mild pulmonary edema or chronic interstitial lung disease. Normal heart, mediastinum and pulmonary sera. RAD/Ribs Bilat 3V No CXR IMPRESSION: No acute bone injury of the bilateral ribs. Mild pulmonary edema. Electronically Signed: Fran Whitehead MD at 0:23 EST ,
== END | disposition home or self-care (01) ==
LOC: MTRAD 15:21
PROVIDERS: PCP Family Medicine; Referring Provider Family Medicine; Visit Provider Family Medicine
DX: R07.81 Pleurodynia (principal); M54.6 Pain in thoracic spine
CPT/HCPCS: 71110; 72070

== ENCOUNTER → 2022-08-04 | Outpatient (CLI) | payer MEDICAID, SELFPAY ==
[2022-08-04 17:58] LABS: Absolute Lymphocyte Count 1.21 X10^3/uL (0.83-4.51); Absolute Neutrophil Count 13.6 X10^3/uL (2.0-7.7); Basophil# 0.04 X10^3/uL; Basophil% 0.3 % (0-1); Eosinophil# 0.03 X10^3/uL; Eosinophils% 0.2 % (0-5); Hematocrit 39.7 % (37-47); Hemoglobin 12.5 g/dL (12.0-15.0); Lymphocyte # 1.21 X10^3/ul (0.83-4.51); Lymphocyte % 7.9 % (19-41); Mean Corp Hgb Conc 31.5 g/dL (32-36); Mean Corpuscular Hgb 27.5 pg (27.0-32.0); Mean Corpuscular Volume 87.3 fL (81-99); Mean Platelet Vol. 9.1 fl (6.2-12.0); Monocyte% 2.6 % (0-10); NRBC Flagged by Analyzer 0 % (0-5); Neutrophil # 13.56 X10^3/uL (2.7-7.7); Platelet Count 304 K/mm3 (150-450); RBC Distribution Width CV 17.7 % (11.6-14.6); RBC Distribution Width SD 55.8 fl (35.1-43.9); Red Blood Count 4.55 M/mm3 (4.2-5.4); White Blood Count 15.4 K/mm3 (4.4-11.0)
[2022-08-04 18:31] LABS: Vitamin B12 323 pg/mL (211-911); Vitamin D,25 Hydroxy 26.6 ng/mL
[2022-08-04 18:40] LABS: Hemoglobin A1c 6.3 % (3.8-5.6)
[2022-08-04 18:48] LABS: ALB/GLOB Ratio 1.2 RATIO (0.9-2.4); AST(SGOT) 6 U/L (15-37); Alanine Aminotransfer ALT/SGPT 25 U/L (13-56); Albumin, Serum 3.7 g/dL (3.2-5.0); Alkaline Phosphatase 91 U/L (45-117); Anion Gap 9 (5-15); BUN 14 mg/dL (7-18); BUN/Creat Ratio 16.1 RATIO (10-20); Calcium,Total 9.2 mg/dL (8.5-10.1); Chloride 103 mmol/L (98-107); Creatinine, Serum 0.87 mg/dL (0.55-1.02); EST Glomerular Filtration Rate 70 mL/min (>60); Est Glom Filt Rate - Afr Amer 85 mL/min (>60); Ferritin 18 ng/mL (8-252); Glucose 162 mg/dL (74-106); Iron 44 ug/dL (50-170); Iron Binding Capacity,Total 451 ug/dL (250-450); Potassium 4.5 mmol/L (3.5-5.1); Protein, Total 6.7 g/dL (6.4-8.2); Sodium Level 139 mmol/L (136-145)
== END | disposition home or self-care (01) ==
LOC: MFPLAB 16:37
PROVIDERS: PCP Family Medicine; Visit Provider Family Medicine
DX: D64.9 Anemia, unspecified (principal); E55.9 Vitamin D deficiency, unspecified; R73.02 Impaired glucose tolerance (oral)
CPT/HCPCS: 36415; 80053; 82306; 82607; 82728; 82746; 83036; 83540; 83550; 85025